=== PATIENT | male | born 1990 | race Caucasian/White ===

== ENCOUNTER 2019-07-04 08:09 | Inpatient (IN) | payer SELFPAY ==
[~2019-07-04] VITALS: Ht 170.2 cm; Wt 63.5 kg
[2019-07-04] MEDS ORDERED: InsuLIN REG 1unit/0.01ml Soln (100units/ml) ONE (09:22)
[2019-07-04] MEDS ORDERED: SODIUM CHLORIDE 0.9% 1,000 ML IV ONE ×2 (09:24)
[2019-07-04] MEDS ORDERED: InsuLIN REG 1unit/0.01ml Soln (100units/ml) IV ONE (09:30)
[2019-07-04] MEDS ORDERED: SODIUM CHLORIDE 0.9% 3,000 ML IV ONE (09:30)
[2019-07-04 09:35] LABS: Basophils # (auto) 0 uL; Eosinophils # (auto) 0 uL; Lymphocytes # (auto) 1.1 uL; Monocytes # (auto) 0.4 uL
[2019-07-04 09:37] LABS: Basophils % (auto) 0.2 % (0.0-2.0); Eosinophils % (auto) 0.3 % (0.0-7.0); Hematocrit 43.7 % (41.0-53.0); Hemoglobin 15.5 g/dL (13.5-17.5); Mean Corpuscular Hemoglobin 35.8 pg (28.0-32.0); Mean Corpuscular Hgb Conc. 35.4 g/dL (32.0-36.0); Mean Corpuscular Volume 101.1 fL (80.0-100.0); Monocytes % (auto) 4.1 % (0.0-12.0); Neutrophils # (auto) 8.6 uL; Neutrophils % (auto) 84.4 % (37.0-80.0); Nucleated Red Blood Cells % 0.1 %; Platelet Count (auto) 131 10^3/uL (140-450); Red Blood Cells 4.32 10^6/uL (4.5-5.90); Red Cell Distribution Width 13.2 % (11.8-14.3); White Blood Cell 10.2 10^3/uL (4.4-10.8)
[2019-07-04 10:06] LABS: Urine Bacteria NONE SEEN /hpf (None Seen); Urine Blood Negative /uL (Negative); Urine Mucus FEW (None Seen); Urine Specific Gravity 1.023 (1.001-1.035); Urine WBC 1 /hpf (0 - 3)
[2019-07-04 11:29] LABS: Potassium 4.7 mmol/L (3.5-5.1); Sodium 148 mmol/L (136-145)
[2019-07-04 11:30] LABS: Anion Gap 33.6 (5-15); Carbon Dioxide 14.4 mmol/L (21-32); Chloride 100 mmol/L (98-107)
[2019-07-04 11:32] LABS: BUN/Creatinine Ratio 11.1; Blood Urea Nitrogen 12 mg/dL (7-18); GFR African American 104 mL/min; GFR Non-African American 86 mL/min
[2019-07-04] MEDS ORDERED: InsuLIN R (HUMAN) 100 UNITS in SODIUM CHL 0.9% 99 ML IV SCH (11:32)
[2019-07-04 11:33] LABS: Alanine Aminotransferase 52 U/L (16-61); Alkaline Phosphatase 174 U/L (45-117); Aspartate Aminotransferase 170.4 U/L (15-37)
[2019-07-04 11:34] LABS: Bilirubin, Total 1.9 mg/dL (0.2-1.0)
[2019-07-04 11:35] LABS: Albumin 4.8 g/dL (3.4-5.0); Total Protein 7.9 g/dL (6.4-8.2)
[2019-07-04 11:38] LABS: Calcium 3.6 mg/dL (8.5-10.1); Glucose 950 mg/dL (74-106)
[2019-07-04] MEDS ORDERED: DEXTROSE (50%) 50ML SYRG IV PRN (11:45)
[2019-07-04] MEDS ORDERED: CALCIUM CHL 100MG/ML 2,000 MG in D5W 5% 100 ML IV ONE (11:45)
[2019-07-04] MEDS: ACCU-CHEK COMFORT CURVE STRIP VI SCH ×8 (11:58→22:12)
[2019-07-04] MEDS ORDERED: HYDROcodone-ACET 5/325MG TAB PO PRN (12:15)
[2019-07-04] MEDS ORDERED: NITROGLYCERIN 0.4 MG SL TAB SL PRN (12:15)
[2019-07-04] MEDS ORDERED: ACETAMINOPHEN 500 MG TAB PO PRN (12:15)
[2019-07-04] MEDS ORDERED: MORPHINE SULF INJ 2 MG/ML SYRINGE 1ML IV PRN ×2 (12:15)
[2019-07-04] MEDS ORDERED: ONDANSETRON HCL 4 MG/2 ML VIAL IV PRN (12:15)
[2019-07-04] MEDS: SODIUM CHLORIDE 0.9% 1,000 ML IV SCH ×2 (12:15→20:15)
[2019-07-04 14:34] LABS: Magnesium 1.8 mg/dL (1.6-2.6); Phosphorus 3.9 mg/dL (2.5-4.90)
[2019-07-04 14:41] LABS: BUN/Creatinine Ratio 14.3; Calcium 9.4 mg/dL (8.5-10.1); Potassium 3.8 mmol/L (3.5-5.1)
[2019-07-04] MEDS: InsuLIN R (HUMAN) 100 UNITS in SODIUM CHL 0.9% 99 ML IV SCH ×2 (17:06→18:07)
[2019-07-04 19:00] VITALS: BP 116/74
--- NOTE | 2019-07-04 19:15 | NUR ---
OPEN RECEIVED REPORT AND ASSUMED CARE OF MALE PT. PT IS CONNECTED TO THE ER MONITORS VS ARE STABLE. PT IS ON RA 97%. PT IS ON AN INSULIN DRIP AND NS. PT IS RELAXED LAYING ON ER GURNEY AND WATCHING TV, DENIES PAIN AT THIS TIME. PT IS A/0 X 4. PT HAS L AC IV AND R FA IV. BOTH IVS ARE PATENT AND ASYMPTOMATIC. PT CAN AMBULATE WITHOUT ASSISTANCE. WHEELS ARE LOCKED. SIDE RAILS UP FOR SAFETY. SAFETY MEASURES ARE IN PLACE. IS AT BEDSIDE. PT DENIES QUESTIONS AT THIS TIME. WILL CONTINUE TO CARE FOR AND MONITOR.
[2019-07-04 20:00] VITALS: BP 116/74
[2019-07-04] MEDS: FAMOTIDINE (10MG/ML) 2ML VL IV SCH (21:32)
[2019-07-04 21:35] VITALS: BP 120/70
[2019-07-04 22:00] VITALS: BP 112/75
[2019-07-04 23:22] LABS: Calcium 7.8 mg/dL (8.5-10.1); Potassium 3.1 mmol/L (3.5-5.1)
[2019-07-04 23:25] LABS: BUN/Creatinine Ratio 10.6
[2019-07-05] VITALS: BP 112/76
[2019-07-05 00:50] VITALS: BP 113/74
--- NOTE | 2019-07-05 00:53 | NUR ---
[facility]1 Addendum: 07/05/19 at 0053 by FAUSTINO RAWLS RN AWAITING CALL BACK
--- NOTE | 2019-07-05 01:04 | NUR ---
CONSULTED DR. DHILLON INFORMED DR DHILLON ABOUT THE K LEVEL ORDERS RECEIVED. JACKELINE AND DR. BENAVIDES.
[2019-07-05] MEDS ORDERED: POTASSIUM CHL 20MEQ/100ML 100 ML IV ONE (01:15)
--- NOTE | 2019-07-05 01:15 | NUR ---
PT COMPLAINS PT COMPLAINS OF IV FLUID BEING UNCOMFORTABLE. PT CURRENTLY RUNNING K. K STOPPED. CONSULT WITH JACQUIE TO GIVE PO INSTEAD.
--- NOTE | 2019-07-05 01:40 | NUR ---
PT APPEARS TO BE SLEEPING, VS STABLE. NO SS OF DISTRESS NOTED.
[2019-07-05] MEDS: ACCU-CHEK COMFORT CURVE STRIP VI SCH ×14 (01:43→20:00)
[2019-07-05] MEDS ORDERED: POTASSIUM CHL 20 Meq TABLET PO ONE (01:45)
[2019-07-05 02:00] VITALS: BP 116/67
[2019-07-05 04:00] VITALS: BP 115/69
[2019-07-05] MEDS: SODIUM CHLORIDE 0.9% 1,000 ML IV SCH ×3 (04:24→20:15)
[2019-07-05 06:13] VITALS: BP 106/62
[2019-07-05 07:26] LABS: Basophils # (auto) 0 uL; Eosinophils # (auto) 0.1 uL; Eosinophils % (auto) 1.1 % (0.0-7.0); Lymphocytes # (auto) 0.8 uL; Monocytes # (auto) 0.3 uL; Monocytes % (auto) 6.5 % (0.0-12.0); Platelet Count (auto) 104 10^3/uL (140-450); White Blood Cell 5.2 10^3/uL (4.4-10.8)
[2019-07-05 07:28] LABS: Basophils % (auto) 0.7 % (0.0-2.0); Hematocrit 36.8 % (41.0-53.0); Lymphocytes % (auto) 15.5 % (10.0-50.0); Mean Corpuscular Hemoglobin 34.9 pg (28.0-32.0); Mean Corpuscular Hgb Conc. 35.3 g/dL (32.0-36.0); Mean Corpuscular Volume 98.7 fL (80.0-100.0); Neutrophils % (auto) 76.2 % (37.0-80.0); Nucleated Red Blood Cells % 0.1 %; Red Blood Cells 3.73 10^6/uL (4.5-5.90); Red Cell Distribution Width 13.1 % (11.8-14.3)
[2019-07-05 07:36] LABS: Potassium 3.4 mmol/L (3.5-5.1)
[2019-07-05 07:42] LABS: BUN/Creatinine Ratio 8.2; Calcium 7.8 mg/dL (8.5-10.1); Phosphorus 2.6 mg/dL (2.5-4.90)
[2019-07-05] MEDS: FAMOTIDINE (10MG/ML) 2ML VL IV SCH ×2 (09:50→22:00)
[2019-07-05 11:33] LABS: Calcium 8.2 mg/dL (8.5-10.1); Potassium 3.5 mmol/L (3.5-5.1)
[2019-07-05 11:37] LABS: BUN/Creatinine Ratio 7.9; Bilirubin, Total 0.8 mg/dL (0.2-1.0); Total Protein 6.3 g/dL (6.4-8.2)
[2019-07-05 16:33] LABS: Calcium 7.7 mg/dL (8.5-10.1); Potassium 3.3 mmol/L (3.5-5.1)
[2019-07-05] MEDS ORDERED: DEXTROSE (50%) 50ML SYRG IV PRN (19:15)
[2019-07-05] MEDS ORDERED: INSULIN LANTUS (GLARGINE) 1 /0.01ml (100units/ml) SC ONE (19:15)
--- NOTE | 2019-07-05 19:15 | NUR ---
OPEN RECEIVED REPORT AND ASSUMED CARE OF MALE PT. PT IS CONNECTED TO THE ER MONITORS VS ARE STABLE. PT IS ON RA 98/%. PT IS ON AN INSULIN DRIP AND NS@125/hr. PT IS RELAXED LAYING ON ER GURNEY AND WATCHING TV, DENIES PAIN AT THIS TIME. PT IS A/0 X 4. PT HAS L AC IV AND R FA IV. BOTH IVS ARE PATENT, no resistance noted when flushed with ns. ivs appear ASYMPTOMATIC. PT CAN AMBULATE WITHOUT ASSISTANCE. WHEELS ARE LOCKED. SIDE RAILS UP FOR SAFETY. SAFETY MEASURES ARE IN PLACE. all questions and concerns addressed at this time. WILL CONTINUE TO CARE FOR AND MONITOR.
[2019-07-05] MEDS: InsuLIN REG 1unit/0.01ml Soln (100units/ml) SC SCH (20:00)
--- NOTE | 2019-07-05 21:30 | NUR ---
report given to sheryl campos report given to sheryl campos and care endorsed.
--- NOTE | 2019-07-05 21:30 | NUR ---
pt on insulin drip until transfer, pt not given sub q insulin.
[2019-07-05 21:50] VITALS: BP 124/75
--- NOTE | 2019-07-05 21:50 | NUR ---
MS admit from ER SANDOVALYAZMIN SCHULTZ admitted to tele/MS after SBAR received. Patient oriented to Shantell Schwartz, primary RN, unit, room, bed, and unit policies regarding patient care and visiting hours. Patient weighed by bed scale and encouraged to call if they need something. All questions and concerns addressed, patient verbalized understanding. PATIENT IS ALERT AND ORIENTED X4 AND ANSWERS IN COMPLETE SENTENCES. PATIENT IS COMFORTABLE IN BED. DISCUSSED POC WITH PATIENT AND INSTRUCTED PATIENT TO CALL PRN; PATIENT VERBALIZED UNDERSTANDING. PATIENT DENIES NAUSEA AND DIZZINESS. PATIENT DENIES PAIN. WILL CONTINUE TO MONITOR Q1H AND PRN.
--- NOTE | 2019-07-05 22:00 | NUR ---
MED REC PATIENT STATES THAT HE ONLY TAKES REGULAR INSULIN AND HAS TAKEN LANTUS IN THE PAST BUT DOES NOT KNOW THE SLIDING SCALE. HE STATES THAT HE HAS NOT TAKEN INSULIN OR LANTUS "FOR WEEKS" BECAUSE HIS INSURANCE TERMINATED.
--- NOTE | 2019-07-05 23:50 | NUR ---
AT BEDSIDE. [employer] NOTED. PATIENT AND FAMILY ARE AWARE THAT VISITING HOURS ARE FROM 2000 TO 0800. WAS ALLOWED TO COME UP AND STAY FOR 20 MINUTES.
[2019-07-06] MEDS: InsuLIN REG 1unit/0.01ml Soln (100units/ml) SC SCH ×3 (00:17→07:50)
[2019-07-06] MEDS: ACCU-CHEK COMFORT CURVE STRIP VI SCH ×3 (00:17→07:50)
[2019-07-06] MEDS: SODIUM CHLORIDE 0.9% 1,000 ML IV SCH (04:20)
[2019-07-06 05:00] VITALS: BP 115/68
[2019-07-06 06:48] LABS: Potassium 3.1 mmol/L (3.5-5.1)
[2019-07-06 07:05] LABS: BUN/Creatinine Ratio 9.1; Calcium 8.4 mg/dL (8.5-10.1); Magnesium 1.9 mg/dL (1.6-2.6)
--- NOTE | 2019-07-06 07:15 | NUR ---
ENDORSED PATIENT CARE TO DAY SHIFT NURSE MORENA LOPEZ.
[2019-07-06 07:16] LABS: Cholesterol 214 mg/dL (< 200); HDL Cholesterol 54 mg/dL (40-59); LDL Cholesterol 104 mg/dL (< 100); Triglycerides 393 mg/dL (< 150)
[2019-07-06 09:00] VITALS: BP 110/66
[2019-07-06] MEDS ORDERED: MAGNESIUM SULFATE 1GM/100ML 100 ML IV ONE (09:45)
[2019-07-06] MEDS ORDERED: POTASSIUM CHL 20 Meq TABLET PO ONE (09:45)
[2019-07-06] MEDS: FAMOTIDINE (10MG/ML) 2ML VL IV SCH (09:58)
[2019-07-06] MEDS ORDERED: SODIUM CHLORIDE 0.9% 1,000 ML IV SCH (10:00)
[2019-07-06] MEDS ORDERED: DEXTROSE (50%) 50ML SYRG IV PRN (10:00)
[2019-07-06] MEDS ORDERED: InsuLIN REG 1unit/0.01ml Soln (100units/ml) SC SCH (11:30)
[2019-07-06] MEDS ORDERED: ACCU-CHEK COMFORT CURVE STRIP VI SCH (11:30)
[2019-07-06] MEDS ORDERED: ATOR20TA PO (12:35)
[2019-07-06 13:00] VITALS: BP 115/76
[2019-07-06 13:15] LABS: BUN/Creatinine Ratio 8.3; Calcium 8.2 mg/dL (8.5-10.1); Potassium 3.9 mmol/L (3.5-5.1)
[2019-07-06] MEDS ORDERED: INSULIN LANTUS (GLARGINE) 1 /0.01ml (100units/ml) SC ONE (13:45)
--- NOTE | 2019-07-06 16:17 | NUR ---
PT DISCHARGED HOME. INSTRUCTIONS GIVEN, QUESTIONS ANSWERED. CHART FOR LOW DOSE SS INSULIN GIVEN. VERBALIZED UNDERSTANDING. ALL APPROPRIATE PAPERWORK SIGNED. PATIENT DISCHARGED HOME.
== END 2019-07-06 16:18 | disposition home or self-care (01) | DRG 638 ==
LOC: ER 08:09 → TELE 08:10 → WEST WING 07-05 21:41
PROVIDERS: ADMIT Nurse Practitioner Acute Care; ATTEND Internal Medicine
DX: E11.10 Type 2 diabetes mellitus with ketoacidosis without coma (principal); E44.1 Mild protein-calorie malnutrition; E78.5 Hyperlipidemia, unspecified; E83.51 Hypocalcemia; E86.0 Dehydration; E87.6 Hypokalemia; Z91.14 Patient's other noncompliance with medication regimen; Z68.21 Body mass index [BMI] 21.0-21.9, adult; Z79.4 Long term (current) use of insulin
CPT/HCPCS: 36415; 80048; 80053; 80061; 81001; 82962; 83036; 83735; 83880; 84100; 84443; 85025; 87081; 96361; 96365; 96367; 96375; G0378; J1815; J3480; J3490; J7060

== ENCOUNTER 2020-09-22 21:45 | Inpatient (IN) | payer MEDICAID, OTHER ==
[~2020-09-22] VITALS: Ht 200.7 cm; Wt 71.2 kg
[~2020-09-22 21:45] MED LIST: ATOR20TA PO
[2020-09-22] MEDS ORDERED: InsuLIN REG 1unit/0.01ml Soln (100units/ml) IV ONE (23:15)
[2020-09-22] MEDS ORDERED: MORPHINE SULFATE 4 MG/ML SYR/VIAL IV ONE (23:15)
[2020-09-22] MEDS ORDERED: ONDANSETRON HCL 4 MG/2 ML VIAL IV ONE (23:15)
[2020-09-22] MEDS ORDERED: SODIUM CHLORIDE 0.9% 3,000 ML IV ONE (23:15)
[2020-09-22 23:44] LABS: Platelet Count (auto) 193 10^3/uL (140-450)
[2020-09-22 23:46] LABS: Hematocrit 40.6 % (41.0-53.0); Hemoglobin 12.8 g/dL (13.5-17.5); Mean Corpuscular Hemoglobin 33.9 pg (28.0-32.0); Mean Corpuscular Hgb Conc. 31.5 g/dL (32.0-36.0); Mean Corpuscular Volume 107.8 fL (80.0-100.0); Red Blood Cells 3.76 10^6/uL (4.5-5.90); Red Cell Distribution Width 14.2 % (11.8-14.3); White Blood Cell 28.3 10^3/uL (4.4-10.8)
[2020-09-22 23:49] LABS: Basophils % (manual) 0 (0.0-2.0); Blast Cells 0; Eosinophils % (manual) 0 (0-7); Myelocytes % 0; Promyelocytes % 0; Reactive Lymphocytes 0
[2020-09-22 23:57] LABS: Albumin 2.8 g/dL (3.4-5.0); BUN/Creatinine Ratio 7.6; Calcium 6.9 mg/dL (8.5-10.1)
[2020-09-23] VITALS (63 sets, daily range): BP systolic 65–158; BP diastolic 18–97
[2020-09-23 00:06] LABS: Bilirubin, Total 2.6 mg/dL (0.2-1.0); Total Protein 6.3 g/dL (6.4-8.2)
[2020-09-23 00:19] LABS: Potassium 5.6 mmol/L (3.5-5.1)
[2020-09-23 00:38] LABS: Band Neutrophils % (manual) 11; Lymphocytes % (manual) 20 (10.0-50.0); Metamyelocytes % 1; Monocytes % (manual) 11 (0-12)
[2020-09-23] MEDS ORDERED: SODIUM CHLORIDE 0.9% 1,000 ML IV SCH ×2 (01:15→04:45)
[2020-09-23] MEDS ORDERED: DEXTROSE (50%) 50ML SYRG IV PRN ×2 (01:15→04:45)
[2020-09-23] MEDS ORDERED: SODIUM BICARBONATE 8.4 % INJ 50ML VIAL IV ONE ×3 (01:30→20:45)
[2020-09-23] MEDS ORDERED: InsuLIN REG 1unit/0.01ml Soln (100units/ml) IV ONE ×2 (01:30→20:00)
[2020-09-23] MEDS ORDERED: NITROGLYCERIN 0.4 MG SL TAB SL PRN (01:45)
[2020-09-23] MEDS ORDERED: MORPHINE SULF INJ 2 MG/ML SYRINGE 1ML IV PRN (01:45)
[2020-09-23] MEDS ORDERED: ONDANSETRON HCL 4 MG/2 ML VIAL IV PRN (01:45)
[2020-09-23] MEDS ORDERED: DOCUSATE SOD 100 MG CAP PO PRN (01:45)
[2020-09-23] MEDS ORDERED: ACETAMINOPHEN 325 MG TAB PO PRN (01:45)
[2020-09-23] MEDS ORDERED: HYDROcodone-ACET 5/325MG TAB PO PRN (01:45)
[2020-09-23 02:32] LABS: Lactic Acid w/Reflex 22.6 mmol/L (0.4-2.0)
[2020-09-23 03:18] LABS: Lactic Acid w/Reflex 26.4 mmol/L (0.4-2.0)
[2020-09-23] MEDS ORDERED: VANCOMYCIN PER PHARMACY 0 MG IV SCH (03:45)
[2020-09-23] MEDS ORDERED: VANCOMYCIN 1GM/250ML 250 ML IV ONE (04:00)
[2020-09-23] MEDS ORDERED: InsuLIN R (HUMAN) 100 UNITS in SODIUM CHL 0.9% 99 ML IV SCH ×3 (04:45→12:30)
[2020-09-23] MEDS ORDERED: INSULIN LANTUS (GLARGINE) 1 /0.01ml (100units/ml) SC ONE (05:00)
[2020-09-23] MEDS ORDERED: InsuLIN REG 1unit/0.01ml Soln (100units/ml) ONE (05:37)
[2020-09-23 05:39] LABS: Hematocrit 35.2 % (41.0-53.0); Hemoglobin 11.5 g/dL (13.5-17.5)
[2020-09-23 05:41] LABS: Mean Corpuscular Hgb Conc. 32.5 g/dL (32.0-36.0); Mean Corpuscular Volume 104.4 fL (80.0-100.0); Platelet Count (auto) 159 10^3/uL (140-450); Red Blood Cells 3.37 10^6/uL (4.5-5.90); Red Cell Distribution Width 13.8 % (11.8-14.3)
[2020-09-23 05:48] LABS: Chloride 92 mmol/L (98-107); Magnesium 2.3 mg/dL (1.6-2.6); Potassium 4.9 mmol/L (3.5-5.1); Sodium 135 mmol/L (136-145)
[2020-09-23 06:00] LABS: Anion Gap 39 (5-15); BUN/Creatinine Ratio 9.2; Blood Urea Nitrogen 14 mg/dL (7-18); Glucose 352 mg/dL (74-106)
[2020-09-23] MEDS ORDERED: InsuLIN REG 1unit/0.01ml Soln (100units/ml) SC SCH (06:00)
[2020-09-23] MEDS ORDERED: ACCU-CHEK COMFORT CURVE STRIP VI SCH (06:00)
[2020-09-23 06:01] LABS: Alanine Aminotransferase 2471 U/L (16-61); Albumin 2.4 g/dL (3.4-5.0); Alkaline Phosphatase 234 U/L (45-117); Aspartate Aminotransferase < 3 U/L (15-37); Cholesterol 254 mg/dL (< 200); GFR African American 69 mL/min; GFR Non-African American 57 mL/min; HDL Cholesterol 28 mg/dL (40-59); Phosphorus 8.8 mg/dL (2.5-4.90); Total Protein 5.2 g/dL (6.4-8.2); Triglycerides 1813 mg/dL (< 150)
[2020-09-23 06:02] LABS: Carbon Dioxide 4 mmol/L (21-32)
[2020-09-23 06:03] LABS: Calcium 5.9 mg/dL (8.5-10.1); Lactic Acid w/Reflex 24.8 mmol/L (0.4-2.0)
[2020-09-23] MEDS: ACCU-CHEK COMFORT CURVE STRIP VI SCH ×12 (06:13→22:30)
[2020-09-23 06:16] LABS: White Blood Cell 32.7 10^3/uL (4.4-10.8)
[2020-09-23 06:17] LABS: Basophils % (manual) 0 (0.0-2.0); Blast Cells 0; Eosinophils % (manual) 0 (0-7); Metamyelocytes % 0; Myelocytes % 0; Promyelocytes % 0; Reactive Lymphocytes 0
[2020-09-23] MEDS ORDERED: CALCIUM GLUC 4.65meq/50ml D5AE 50 ML IV ONE ×3 (06:45→17:00)
[2020-09-23 06:59] LABS: Band Neutrophils % (manual) 5; Lymphocytes % (manual) 7 (10.0-50.0); Monocytes % (manual) 5 (0-12)
[2020-09-23] MEDS: NOREPINEPHRINE 8 MG/250ML KIT 250 ML IV SCH ×3 (07:00→23:40)
[2020-09-23] MEDS: INSULIN LANTUS (GLARGINE) 1 /0.01ml (100units/ml) SC SCH ×2 (07:00→22:06)
[2020-09-23] MEDS ORDERED: LORazepam 2MG/ML-1ML VIAL ONE (07:36)
[2020-09-23] MEDS ORDERED: LORazepam 2MG/ML-1ML VIAL IV ONE (07:45)
[2020-09-23] MEDS ORDERED: MIDAZOLAM HCL 5 MG/ML-1ML VIAL ONE (07:45)
[2020-09-23] MEDS ORDERED: MIDAZOLAM DRIP 50 mg/50mL 50 ML IV ONE (07:50)
[2020-09-23] MEDS ORDERED: ETOMIDATE (2MG/ML) 20ML VIAL IV ONE (07:50)
[2020-09-23] MEDS ORDERED: SUCCINYLCHOLINE CHLORIDE 20 MG/ML 10ML VIAL IV ONE (07:50)
[2020-09-23] MEDS ORDERED: levETIRAcetam 500 MG/5ML INJ IV ONE (07:50)
[2020-09-23] MEDS: MIDAZOLAM DRIP 50 mg/50mL 50 ML IV SCH ×3 (08:28→23:29)
[2020-09-23] MEDS ORDERED: SODIUM CHLORIDE 0.9% 1,000 ML IV ONE (08:30)
[2020-09-23] MEDS ORDERED: MIDAZOLAM HCL 5 MG/ML-1ML VIAL IV ONE (08:30)
[2020-09-23] MEDS ORDERED: cefTRIAXone 1GM/50ML D5W 50 ML IV SCH (09:00)
[2020-09-23] MEDS: ALBUMIN 25% 50 ML IV SCH ×3 (09:40→23:26)
[2020-09-23] MEDS ORDERED: MULTIPLE VITAMIN TAB PO SCH (10:00)
[2020-09-23] MEDS ORDERED: FAMOTIDINE 20 MG TAB PO SCH (10:00)
[2020-09-23] MEDS ORDERED: ASCORBIC ACID 500 MG TAB PO SCH (10:00)
[2020-09-23] MEDS ORDERED: ZINC SULFATE 220mg CAP or TAB PO SCH (10:00)
[2020-09-23] MEDS ORDERED: fentaNYL Drip 2500mCg/250mlNS 250 ML IV ONE (10:48)
[2020-09-23] MEDS: SODIUM CHLORIDE 0.9% 1,000 ML IV SCH ×3 (11:01→21:49)
[2020-09-23 11:15] LABS: Hematocrit 31.1 % (41.0-53.0); Hemoglobin 10.6 g/dL (13.5-17.5); Mean Corpuscular Hgb Conc. 34.1 g/dL (32.0-36.0); Mean Corpuscular Volume 99.9 fL (80.0-100.0); Platelet Count (auto) 81 10^3/uL (140-450); Red Blood Cells 3.11 10^6/uL (4.5-5.90); Red Cell Distribution Width 14.4 % (11.8-14.3); White Blood Cell 25.7 10^3/uL (4.4-10.8)
[2020-09-23 11:25] LABS: Basophils % (manual) 0 (0.0-2.0); Blast Cells 0; Eosinophils % (manual) 0 (0-7); INR 1.84 (0.9-1.15); Monocytes % (manual) 0 (0-12); Promyelocytes % 0; Reactive Lymphocytes 0
[2020-09-23 11:32] LABS: BUN/Creatinine Ratio 7.7
[2020-09-23 11:38] LABS: Calcium 5.7 mg/dL (8.5-10.1); Potassium 6.4 mmol/L (3.5-5.1)
[2020-09-23] MEDS ORDERED: IPRATROPIUM BROM 0.5 MG/2.5ML INH SOL NEB STA (11:48)
[2020-09-23] MEDS ORDERED: SODIUM ZIRCONIUM CYCL 10 GM PAK PO ONE (12:00)
[2020-09-23 12:08] LABS: Band Neutrophils % (manual) 47; Lymphocytes % (manual) 8 (10.0-50.0); Metamyelocytes % 4; Myelocytes % 3
[2020-09-23] MEDS ORDERED: ALBUTEROL SULF 2.5 MG/0.5ML(0.5%) NEB SOLN NEB STA (12:15)
[2020-09-23] MEDS ORDERED: ALBUTEROL SULF 2.5 MG/0.5ML(0.5%) NEB SOLN ONE (12:18)
[2020-09-23] MEDS ORDERED: PANTOPRAZOLE 40 MG/10 ML VIAL INJ IV ONE (12:30)
[2020-09-23] MEDS: SODIUM BICARBONATE 50ML VIAL 50 ML in SOD CHL 0.45% 1,000 ML IV SCH ×3 (12:30→20:00)
[2020-09-23] MEDS ORDERED: PIPERACILLIN-TAZOB 2.25GM 50 ML IV ONE (12:30)
[2020-09-23] MEDS ORDERED: PIPERACILLIN-TAZOB 2.25GM 50 ML IV SCH (12:44)
[2020-09-23] MEDS: VASOPRESSIN 50 UNITS in D5W 5% 247.5 ML IV SCH (12:45)
[2020-09-23] MEDS: InsuLIN R (HUMAN) 100 UNITS in SODIUM CHL 0.9% 99 ML IV SCH ×4 (13:00→23:28)
[2020-09-23] MEDS: PIPERACILLIN-TAZOB 3.375GM 100 ML IV SCH ×2 (13:00→19:00)
[2020-09-23 14:23] LABS: BUN/Creatinine Ratio 8.2; Phosphorus 6.3 mg/dL (2.5-4.90)
[2020-09-23 14:31] LABS: Potassium 5.7 mmol/L (3.5-5.1)
[2020-09-23 14:32] LABS: Calcium 5.4 mg/dL (8.5-10.1)
[2020-09-23] MEDS ORDERED: LIDOCAINE 1% (LOCAL ANESTH.) PF 5ml SDV ID ONE (15:30)
[2020-09-23] MEDS: VANCOMYCIN 1GM/250ML 250 ML IV SCH (16:30)
[2020-09-23 17:14] LABS: Potassium 4.9 mmol/L (3.5-5.1)
[2020-09-23 17:18] LABS: BUN/Creatinine Ratio 7.8
[2020-09-23] MEDS: fentaNYL Drip 2500mCg/250mlNS 250 ML IV SCH (17:45)
[2020-09-23 17:50] LABS: Calcium 15.4 mg/dL (8.5-10.1)
[2020-09-23 19:14] LABS: BUN/Creatinine Ratio 7.9
[2020-09-23 19:22] LABS: Calcium 5.1 mg/dL (8.5-10.1)
[2020-09-23] MEDS: PANTOPRAZOLE 40 MG/10 ML VIAL INJ IV SCH (22:05)
[2020-09-23] MEDS: SODIUM CHLOR 0.9% PF (SALINE LOCK) 10ML VIAL/SYR IV SCH (22:05)
[2020-09-23 22:22] LABS: BUN/Creatinine Ratio 7.2; Potassium 4.8 mmol/L (3.5-5.1)
[2020-09-23 22:41] LABS: Calcium 5.1 mg/dL (8.5-10.1)
[2020-09-23] MEDS ORDERED: FUROSEMIDE 20 MG/2 ML VIAL IV ONE (22:45)
[2020-09-24] VITALS (100 sets, daily range): BP systolic -4–186; BP diastolic 38–179
[2020-09-24] MEDS: ACCU-CHEK COMFORT CURVE STRIP VI SCH ×16 (00:22→22:30)
[2020-09-24] MEDS: SODIUM BICARBONATE 50ML VIAL 50 ML in SOD CHL 0.45% 1,000 ML IV SCH ×5 (00:37→22:15)
[2020-09-24] MEDS: PIPERACILLIN-TAZOB 3.375GM 100 ML IV SCH ×2 (00:46→06:31)
[2020-09-24] MEDS: VASOPRESSIN 50 UNITS in D5W 5% 247.5 ML IV SCH (02:24)
[2020-09-24 02:41] LABS: Anion Gap 20 (5-15); BUN/Creatinine Ratio 7.3; Blood Urea Nitrogen 22 mg/dL (7-18); Carbon Dioxide 16 mmol/L (21-32); Chloride 92 mmol/L (98-107); GFR African American 32 mL/min; GFR Non-African American 26 mL/min; Potassium 4.4 mmol/L (3.5-5.1); Sodium 128 mmol/L (136-145)
[2020-09-24 02:47] LABS: Calcium < 5.0 mg/dL (8.5-10.1); Glucose 475 mg/dL (74-106)
[2020-09-24] MEDS: MIDAZOLAM DRIP 50 mg/50mL 50 ML IV SCH ×2 (03:08→06:36)
[2020-09-24] MEDS: InsuLIN R (HUMAN) 100 UNITS in SODIUM CHL 0.9% 99 ML IV SCH ×3 (03:08→23:25)
[2020-09-24 04:02] LABS: Eosinophils # (auto) 0 10 ^3/uL (0-0.8); Hemoglobin 10.6 g/dL (13.5-17.5); Lymphocytes # (auto) 0.3 10 ^3/uL (0.4-5.4); Monocytes # (auto) 0.1 10 ^3/uL (0-1.3); Red Cell Distribution Width 14.9 % (11.8-14.3); White Blood Cell 12.8 10^3/uL (4.4-10.8)
[2020-09-24 04:04] LABS: Basophils # (auto) 0.1 10 ^3/uL (0-0.2); Basophils % (auto) 0.5 % (0.0-2.0); Hematocrit 29.4 % (41.0-53.0); Lymphocytes % (auto) 2.4 % (10.0-50.0); Mean Corpuscular Hemoglobin 34.5 pg (28.0-32.0); Mean Corpuscular Hgb Conc. 36.1 g/dL (32.0-36.0); Mean Corpuscular Volume 95.6 fL (80.0-100.0); Monocytes % (auto) 0.9 % (0.0-12.0); Neutrophils # (auto) 12.3 10 ^3/uL (1.6-8.6); Neutrophils % (auto) 96.2 % (37.0-80.0); Nucleated Red Blood Cells % 0.3 %; Red Blood Cells 3.08 10^6/uL (4.5-5.90)
[2020-09-24] MEDS: VANCOMYCIN 1GM/250ML 250 ML IV SCH (04:17)
[2020-09-24 04:19] LABS: Albumin 2.2 g/dL (3.4-5.0); Anion Gap 20 (5-15); BUN/Creatinine Ratio 6.8; Blood Urea Nitrogen 21 mg/dL (7-18); Carbon Dioxide 16 mmol/L (21-32); Chloride 92 mmol/L (98-107); GFR African American 31 mL/min; GFR Non-African American 25 mL/min; Potassium 4.2 mmol/L (3.5-5.1); Sodium 128 mmol/L (136-145)
[2020-09-24] MEDS: SODIUM CHLORIDE 0.9% 1,000 ML IV SCH (04:22)
[2020-09-24 04:28] LABS: Alkaline Phosphatase 107 U/L (45-117); Bilirubin, Total 5.8 mg/dL (0.2-1.0); Total Protein 4.4 g/dL (6.4-8.2)
[2020-09-24 05:23] LABS: Magnesium 1.4 mg/dL (1.6-2.6)
[2020-09-24 05:44] LABS: Alanine Aminotransferase 2559 U/L (16-61); Aspartate Aminotransferase 14979 U/L (15-37); Calcium < 5.0 mg/dL (8.5-10.1); Glucose 411 mg/dL (74-106)
[2020-09-24] MEDS: NOREPINEPHRINE 8 MG/250ML KIT 250 ML IV SCH (06:11)
[2020-09-24 06:13] LABS: Platelet Count (auto) 39 10^3/uL (140-450)
[2020-09-24] MEDS: INSULIN LANTUS (GLARGINE) 1 /0.01ml (100units/ml) SC SCH ×2 (06:32→22:00)
[2020-09-24 08:31] LABS: Urine Bacteria NONE SEEN /hpf (None Seen); Urine Blood 3+ /uL (Negative); Urine Specific Gravity 1.011 (1.001-1.035); Urine WBC 3 /hpf (0 - 3)
[2020-09-24] MEDS: fentaNYL Drip 2500mCg/250mlNS 250 ML IV SCH (08:34)
[2020-09-24 08:48] LABS: Amphetamine Screen, Urine NEGATIVE (NEGATIVE); Barbiturate Scree,Urine NEGATIVE (NEGATIVE); Benzodiazephine Screen, Urine POSITIVE (NEGATIVE); Cannabinoid Screen, Urine NEGATIVE (NEGATIVE); Cocaine Screen, Urine NEGATIVE (NEGATIVE); Opiate Scree,Urine NEGATIVE (NEGATIVE); Phencyclidine Screen, Urine NEGATIVE (NEGATIVE)
[2020-09-24] MEDS ORDERED: PANTOPRAZOLE 40 MG/10 ML VIAL INJ IV SCH (10:00)
[2020-09-24] MEDS: PANTOPRAZOLE 40 MG/10 ML VIAL INJ IV SCH ×2 (10:07→22:00)
[2020-09-24] MEDS: SODIUM CHLOR 0.9% PF (SALINE LOCK) 10ML VIAL/SYR IV SCH ×2 (10:07→22:00)
[2020-09-24 12:48] LABS: Chloride 86 mmol/L (98-107); Sodium 124 mmol/L (136-145)
[2020-09-24 13:09] LABS: Anion Gap 17 (5-15); BUN/Creatinine Ratio 7.2; Blood Urea Nitrogen 17 mg/dL (7-18); Carbon Dioxide 21 mmol/L (21-32); GFR African American 42 mL/min; GFR Non-African American 35 mL/min; Glucose 356 mg/dL (74-106)
[2020-09-24 13:23] LABS: Sodium Urine 59 mmol/L (40-220)
[2020-09-24 13:25] LABS: Creatinine, Urine 28 mg/dL (30.0-125.0)
[2020-09-24] MEDS ORDERED: BUMETANIDE 2.5mg/10ml (0.25 mg/ml) INJ IV ONE (14:15)
[2020-09-24 14:46] LABS: Calcium < 5.0 mg/dL (8.5-10.1); Potassium 2.7 mmol/L (3.5-5.1)
[2020-09-24] MEDS ORDERED: CALCIUM GLUC 4.65meq/50ml D5AE 50 ML IV ONE ×2 (15:00)
[2020-09-24] MEDS: POTASSIUM CHL 20MEQ/100ML 100 ML IV SCH ×2 (15:25→16:20)
[2020-09-24] MEDS: CALCIUM GLUC 4.65meq/50ml D5AE 50 ML IV SCH ×2 (15:26→16:20)
[2020-09-24 17:49] LABS: Basophils # (auto) 0 10 ^3/uL (0-0.2); Eosinophils # (auto) 0.1 10 ^3/uL (0-0.8); Eosinophils % (auto) 0.6 % (0.0-7.0); Hemoglobin 10.6 g/dL (13.5-17.5); Nucleated Red Blood Cells % 0.2 %; Platelet Count (auto) 26 10^3/uL (140-450); Red Blood Cells 3.12 10^6/uL (4.5-5.90)
[2020-09-24 17:50] LABS: Anion Gap 14 (5-15); Blood Urea Nitrogen 23 mg/dL (7-18); Carbon Dioxide 21 mmol/L (21-32); Chloride 92 mmol/L (98-107); Glucose 174 mg/dL (74-106); Potassium 4.4 mmol/L (3.5-5.1); Sodium 127 mmol/L (136-145)
[2020-09-24 17:51] LABS: Basophils % (auto) 0.2 % (0.0-2.0); Hematocrit 29.5 % (41.0-53.0); Lymphocytes # (auto) 0.5 10 ^3/uL (0.4-5.4); Lymphocytes % (auto) 4.7 % (10.0-50.0); Mean Corpuscular Hemoglobin 34.2 pg (28.0-32.0); Mean Corpuscular Hgb Conc. 36.1 g/dL (32.0-36.0); Mean Corpuscular Volume 94.7 fL (80.0-100.0); Monocytes # (auto) 0.1 10 ^3/uL (0-1.3); Monocytes % (auto) 1.1 % (0.0-12.0); Neutrophils # (auto) 10.9 10 ^3/uL (1.6-8.6); Neutrophils % (auto) 93.4 % (37.0-80.0); Red Cell Distribution Width 15.4 % (11.8-14.3); White Blood Cell 11.6 10^3/uL (4.4-10.8)
[2020-09-24] MEDS: PIPERACILLIN-TAZOB 2.25GM 50 ML IV SCH (18:00)
[2020-09-24 18:07] LABS: Alanine Aminotransferase 1981 U/L (16-61); Alkaline Phosphatase 98 U/L (45-117); Aspartate Aminotransferase 9645 U/L (15-37); BUN/Creatinine Ratio 6.2; Bilirubin, Total 5.7 mg/dL (0.2-1.0); GFR African American 25 mL/min; GFR Non-African American 20 mL/min; Total Protein 4.1 g/dL (6.4-8.2)
[2020-09-24 18:11] LABS: Calcium < 5.0 mg/dL (8.5-10.1)
[2020-09-24] MEDS ORDERED: D5W 5% IV ONE (19:00)
[2020-09-24] MEDS ORDERED: CALCIUM GLUC IV ONE (19:00)
[2020-09-24] MEDS ORDERED: SODIUM BICARBONATE 8.4% INJ 50ML SYRINGE ONE (21:00)
[2020-09-24 23:47] LABS: Anion Gap 18 (5-15); BUN/Creatinine Ratio 5.8; Blood Urea Nitrogen 23 mg/dL (7-18); Carbon Dioxide 18 mmol/L (21-32); Chloride 91 mmol/L (98-107); GFR African American 23 mL/min; GFR Non-African American 19 mL/min; Glucose 174 mg/dL (74-106); Potassium 3.8 mmol/L (3.5-5.1); Sodium 127 mmol/L (136-145)
[2020-09-24 23:50] LABS: Calcium < 5.0 mg/dL (8.5-10.1)
[2020-09-25] VITALS (96 sets, daily range): BP systolic 92–299; BP diastolic 45–281
[2020-09-25] MEDS: PIPERACILLIN-TAZOB 2.25GM 50 ML IV SCH ×2 (00:17→06:27)
[2020-09-25] MEDS: ACCU-CHEK COMFORT CURVE STRIP VI SCH ×11 (00:30→20:20)
[2020-09-25 01:25] LABS: Basophils # (auto) 0 10 ^3/uL (0-0.2); Basophils % (auto) 0.2 % (0.0-2.0); Eosinophils # (auto) 0.1 10 ^3/uL (0-0.8); Eosinophils % (auto) 0.7 % (0.0-7.0); Hematocrit 27.5 % (41.0-53.0); Lymphocytes # (auto) 0.5 10 ^3/uL (0.4-5.4); Lymphocytes % (auto) 4.6 % (10.0-50.0); Mean Corpuscular Hemoglobin 34.5 pg (28.0-32.0); Mean Corpuscular Hgb Conc. 36.1 g/dL (32.0-36.0); Mean Corpuscular Volume 95.3 fL (80.0-100.0); Monocytes # (auto) 0.2 10 ^3/uL (0-1.3); Monocytes % (auto) 1.6 % (0.0-12.0); Neutrophils # (auto) 9.8 10 ^3/uL (1.6-8.6); Neutrophils % (auto) 92.9 % (37.0-80.0); Nucleated Red Blood Cells % 0.3 %; Platelet Count (auto) 22 10^3/uL (140-450); Red Blood Cells 2.89 10^6/uL (4.5-5.90); Red Cell Distribution Width 15.1 % (11.8-14.3); White Blood Cell 10.5 10^3/uL (4.4-10.8)
[2020-09-25] MEDS: SODIUM BICARBONATE 50ML VIAL 50 ML in SOD CHL 0.45% 1,000 ML IV SCH ×2 (03:38→09:51)
[2020-09-25 04:31] LABS: INR 1.58 (0.9-1.15)
[2020-09-25 05:26] LABS: Basophils # (auto) 0 10 ^3/uL (0-0.2); Eosinophils # (auto) 0.1 10 ^3/uL (0-0.8); Lymphocytes # (auto) 0.5 10 ^3/uL (0.4-5.4); Mean Corpuscular Volume 96.3 fL (80.0-100.0); Monocytes # (auto) 0.2 10 ^3/uL (0-1.3); Monocytes % (auto) 2.2 % (0.0-12.0); Neutrophils # (auto) 8.4 10 ^3/uL (1.6-8.6); White Blood Cell 9.2 10^3/uL (4.4-10.8)
[2020-09-25 05:29] LABS: Basophils % (auto) 0.5 % (0.0-2.0); Eosinophils % (auto) 1.4 % (0.0-7.0); Hematocrit 25.1 % (41.0-53.0); Lymphocytes % (auto) 5.1 % (10.0-50.0); Mean Corpuscular Hemoglobin 34.6 pg (28.0-32.0); Mean Corpuscular Hgb Conc. 35.9 g/dL (32.0-36.0); Neutrophils % (auto) 90.8 % (37.0-80.0); Nucleated Red Blood Cells % 0.3 %
[2020-09-25 05:35] LABS: Albumin 1.6 g/dL (3.4-5.0); Anion Gap 15 (5-15); Blood Urea Nitrogen 25 mg/dL (7-18); Carbon Dioxide 19 mmol/L (21-32); Chloride 92 mmol/L (98-107); Glucose 191 mg/dL (74-106); Potassium 3.8 mmol/L (3.5-5.1); Sodium 126 mmol/L (136-145)
[2020-09-25 05:52] LABS: Alanine Aminotransferase 1370 U/L (16-61); Alkaline Phosphatase 84 U/L (45-117); Aspartate Aminotransferase 4732 U/L (15-37); BUN/Creatinine Ratio 6.1; Bilirubin, Total 4.2 mg/dL (0.2-1.0); GFR African American 22 mL/min; GFR Non-African American 18 mL/min; Total Protein 3.5 g/dL (6.4-8.2)
[2020-09-25] MEDS ORDERED: SODIUM BICARBONATE 8.4% INJ 50ML SYRINGE ONE (05:55)
[2020-09-25 05:57] LABS: Calcium < 5.0 mg/dL (8.5-10.1)
[2020-09-25 05:58] LABS: Platelet Count (auto) 18 10^3/uL (140-450)
[2020-09-25] MEDS: INSULIN LANTUS (GLARGINE) 1 /0.01ml (100units/ml) SC SCH ×2 (06:24→22:22)
[2020-09-25] MEDS: NOREPINEPHRINE 8 MG/250ML KIT 250 ML IV SCH ×2 (06:45→16:14)
[2020-09-25] MEDS: MIDAZOLAM DRIP 50 mg/50mL 50 ML IV SCH ×3 (07:56→18:05)
[2020-09-25] MEDS ORDERED: LORazepam 2MG/ML-1ML VIAL IV PRN (10:00)
[2020-09-25] MEDS ORDERED: MAGNESIUM SULFATE 1GM/100ML 100 ML IV SCH ×2 (10:00→11:15)
[2020-09-25] MEDS: SODIUM CHLOR 0.9% PF (SALINE LOCK) 10ML VIAL/SYR IV SCH ×2 (10:12→22:22)
[2020-09-25 10:14] LABS: Hepatitis B Surface Antibody Positive
[2020-09-25 10:42] LABS: Hepatitis A Total Antibody Positive
[2020-09-25 10:45] LABS: Potassium 3.7 mmol/L (3.5-5.1)
[2020-09-25 10:47] LABS: BUN/Creatinine Ratio 6.1
[2020-09-25] MEDS ORDERED: CALCIUM GLUC 4.65meq/50ml D5AE 50 ML IV ONE ×3 (11:00→21:45)
[2020-09-25 11:01] LABS: Calcium 5.3 mg/dL (8.5-10.1)
[2020-09-25] MEDS: PANTOPRAZOLE 40 MG/10 ML VIAL INJ IV SCH ×2 (11:20→22:22)
[2020-09-25] MEDS ORDERED: DEXTROSE (50%) 50ML SYRG IV PRN (12:15)
[2020-09-25] MEDS: VASOPRESSIN 50 UNITS in D5W 5% 247.5 ML IV SCH (12:45)
[2020-09-25 12:53] LABS: Hepatitis A Ab IgM Negative; Hepatitis B Core IgM Negative; Hepatitis B Core Total AB Negative; Hepatitis B Surface Antigen Negative (Negative); Hepatitis C Antibody Negative (Negative)
[2020-09-25] MEDS: SODIUM CHLORIDE 0.9% 1,000 ML IV SCH ×2 (13:38→22:00)
[2020-09-25 14:06] LABS: Potassium 3.6 mmol/L (3.5-5.1)
[2020-09-25 14:08] LABS: BUN/Creatinine Ratio 5.8; Calcium 5.7 mg/dL (8.5-10.1)
[2020-09-25] MEDS: CEFEPIME 1 GM in SODIUM CHL 0.9% 50 ML IV SCH (16:12)
[2020-09-25] MEDS: InsuLIN REG 1unit/0.01ml Soln (100units/ml) SC SCH ×2 (16:13→20:51)
[2020-09-25] MEDS: fentaNYL Drip 2500mCg/250mlNS 250 ML IV SCH (18:03)
[2020-09-25 19:29] LABS: Potassium 3.8 mmol/L (3.5-5.1)
[2020-09-25 19:33] LABS: BUN/Creatinine Ratio 5.4
[2020-09-25 19:53] LABS: Calcium 5.5 mg/dL (8.5-10.1)
[2020-09-25 20:33] LABS: Albumin 1.5 g/dL (3.4-5.0); Magnesium 1.7 mg/dL (1.6-2.6)
[2020-09-25] MEDS: MAGNESIUM SULFATE 1GM/100ML 100 ML IV SCH ×2 (22:22→23:20)
[2020-09-26] VITALS (82 sets, daily range): BP systolic 95–176; BP diastolic 56–92
[2020-09-26] MEDS: metroNIDAZOLE 500MG/100ML 100 ML IV SCH ×4 (00:30→22:00)
[2020-09-26] MEDS: ACCU-CHEK COMFORT CURVE STRIP VI SCH ×6 (00:35→22:24)
[2020-09-26] MEDS: InsuLIN REG 1unit/0.01ml Soln (100units/ml) SC SCH ×6 (00:42→22:24)
[2020-09-26] MEDS: CEFEPIME 1 GM in SODIUM CHL 0.9% 50 ML IV SCH ×2 (02:00→16:00)
[2020-09-26 02:20] LABS: Basophils # (auto) 0 10 ^3/uL (0-0.2); Basophils % (auto) 0.3 % (0.0-2.0); Eosinophils # (auto) 0.2 10 ^3/uL (0-0.8); Eosinophils % (auto) 2.8 % (0.0-7.0); Hematocrit 18.9 % (41.0-53.0); Lymphocytes # (auto) 0.2 10 ^3/uL (0.4-5.4); Lymphocytes % (auto) 2.9 % (10.0-50.0); Mean Corpuscular Hgb Conc. 36.1 g/dL (32.0-36.0); Mean Corpuscular Volume 94.3 fL (80.0-100.0); Monocytes # (auto) 0.4 10 ^3/uL (0-1.3); Monocytes % (auto) 5.4 % (0.0-12.0); Neutrophils # (auto) 6.7 10 ^3/uL (1.6-8.6); Neutrophils % (auto) 88.6 % (37.0-80.0); Nucleated Red Blood Cells % 0.1 %; Platelet Count (auto) 29 10^3/uL (140-450); Red Blood Cells 2.01 10^6/uL (4.5-5.90); Red Cell Distribution Width 14.6 % (11.8-14.3); White Blood Cell 7.6 10^3/uL (4.4-10.8)
[2020-09-26 02:36] LABS: Albumin 1.4 g/dL (3.4-5.0); Magnesium 1.9 mg/dL (1.6-2.6); Potassium 3.7 mmol/L (3.5-5.1)
[2020-09-26 02:38] LABS: BUN/Creatinine Ratio 5.5; Calcium 5.5 mg/dL (8.5-10.1); Hemoglobin 6.8 g/dL (13.5-17.5)
[2020-09-26 02:46] LABS: Bilirubin, Total 4.7 mg/dL (0.2-1.0); Phosphorus 3.9 mg/dL (2.5-4.90); Total Protein 3.6 g/dL (6.4-8.2)
[2020-09-26 02:59] LABS: Cholesterol 120 mg/dL (< 200); Triglycerides 459 mg/dL (< 150)
[2020-09-26 03:00] LABS: HDL Cholesterol 10 mg/dL (40-59); LDL Cholesterol 33 mg/dL (< 100)
[2020-09-26] MEDS: SODIUM CHLORIDE 0.9% 1,000 ML IV SCH (04:15)
[2020-09-26 05:33] LABS: INR 1.17 (0.9-1.15)
[2020-09-26] MEDS ORDERED: CALCIUM GLUC 4.65meq/50ml D5AE 50 ML IV ONE (06:30)
[2020-09-26] MEDS: INSULIN LANTUS (GLARGINE) 1 /0.01ml (100units/ml) SC SCH ×2 (07:00→22:00)
[2020-09-26] MEDS: MAGNESIUM SULFATE 1GM/100ML 200 ML IV SCH (10:26)
[2020-09-26] MEDS: PANTOPRAZOLE 40 MG/10 ML VIAL INJ IV SCH ×2 (10:26→22:00)
[2020-09-26] MEDS: SODIUM CHLOR 0.9% PF (SALINE LOCK) 10ML VIAL/SYR IV SCH ×2 (10:27→22:00)
[2020-09-26] MEDS: BUMETANIDE INJECTION 25 MG in GIVE UN-DILUTED 0 ML IV SCH (11:00)
[2020-09-26] MEDS ORDERED: DOPamine 1600MCG/ML D5W 250 ML IV SCH (11:00)
[2020-09-26] MEDS ORDERED: BUMETANIDE 2.5mg/10ml (0.25 mg/ml) INJ IV ONE (11:00)
[2020-09-26] MEDS: DOPamine 1600MCG/ML D5W 250 ML IV SCH (11:40)
[2020-09-26] MEDS: MIDAZOLAM DRIP 50 mg/50mL 50 ML IV SCH ×2 (12:13→17:01)
[2020-09-26] MEDS: ALBUMIN 25% 100 ML IV SCH ×2 (12:40→22:00)
[2020-09-26] MEDS ORDERED: Glucerna 1.2 Cal 1Liter BOTTLE GT SCH (13:45)
[2020-09-26] MEDS ORDERED: FLUCONAZOLE 200MG/100ML 100 ML IV ONE (13:45)
[2020-09-26] MEDS: VASOPRESSIN 50 UNITS in D5W 5% 247.5 ML IV SCH (14:49)
[2020-09-26] MEDS: OCTREOTIDE ACETATE 100 MCG/ML VL SUBCUT SCH ×2 (14:51→22:00)
[2020-09-26] MEDS: NOREPINEPHRINE 8 MG/250ML KIT 250 ML IV SCH (17:00)
[2020-09-26] MEDS: fentaNYL Drip 2500mCg/250mlNS 250 ML IV SCH (17:05)
[2020-09-26] MEDS: DEXTROSE 10% 1,000 ML IV SCH (22:30)
[2020-09-26 22:59] LABS: BUN/Creatinine Ratio 5.6; Magnesium 2.1 mg/dL (1.6-2.6); Potassium 3.7 mmol/L (3.5-5.1)
[2020-09-26 23:01] LABS: Calcium 5.6 mg/dL (8.5-10.1)
[2020-09-27] VITALS (98 sets, daily range): BP systolic 104–164; BP diastolic 59–98
[2020-09-27] MEDS: InsuLIN REG 1unit/0.01ml Soln (100units/ml) SC SCH ×6 (00:30→22:15)
[2020-09-27] MEDS: ACCU-CHEK COMFORT CURVE STRIP VI SCH ×6 (00:30→22:15)
[2020-09-27] MEDS ORDERED: CALCIUM GLUC 4.65meq/50ml D5AE 50 ML IV ONE (01:00)
[2020-09-27] MEDS: ALBUMIN 25% 100 ML IV SCH (03:15)
[2020-09-27] MEDS: metroNIDAZOLE 500MG/100ML 100 ML IV SCH ×3 (06:00→22:15)
[2020-09-27] MEDS: OCTREOTIDE ACETATE 100 MCG/ML VL SUBCUT SCH ×3 (06:00→22:15)
[2020-09-27] MEDS: INSULIN LANTUS (GLARGINE) 1 /0.01ml (100units/ml) SC SCH ×2 (07:00→22:15)
[2020-09-27 07:31] LABS: Potassium 3.7 mmol/L (3.5-5.1)
[2020-09-27 07:32] LABS: Mean Corpuscular Hemoglobin 34.6 pg (28.0-32.0); Mean Corpuscular Hgb Conc. 35.8 g/dL (32.0-36.0); Mean Corpuscular Volume 96.6 fL (80.0-100.0); Red Blood Cells 1.97 10^6/uL (4.5-5.90); Red Cell Distribution Width 14.4 % (11.8-14.3); White Blood Cell 4.5 10^3/uL (4.4-10.8)
[2020-09-27 07:36] LABS: Hemoglobin 6.8 g/dL (13.5-17.5)
[2020-09-27 07:37] LABS: Platelet Count (auto) 16 10^3/uL (140-450)
[2020-09-27 07:39] LABS: Basophils % (manual) 0 (0.0-2.0); Blast Cells 0; Myelocytes % 0; Promyelocytes % 0; Reactive Lymphocytes 0
[2020-09-27 07:45] LABS: Albumin 1.9 g/dL (3.4-5.0); BUN/Creatinine Ratio 5.5; Bilirubin, Total 4.5 mg/dL (0.2-1.0); Calcium 6.2 mg/dL (8.5-10.1); Total Protein 4.2 g/dL (6.4-8.2)
[2020-09-27] MEDS: DEXTROSE 10% 1,000 ML IV SCH ×2 (08:03→14:29)
[2020-09-27] MEDS: MIDAZOLAM DRIP 50 mg/50mL 50 ML IV SCH ×3 (08:04→18:48)
[2020-09-27 08:28] LABS: Band Neutrophils % (manual) 2; Eosinophils % (manual) 3 (0-7); Lymphocytes % (manual) 4 (10.0-50.0); Metamyelocytes % 1; Monocytes % (manual) 19 (0-12)
[2020-09-27] MEDS ORDERED: SODIUM CHL 0.9% 1000 ML BAG XX ONE (10:00)
[2020-09-27] MEDS: MAGNESIUM SULFATE 1GM/100ML 200 ML IV SCH (10:17)
[2020-09-27] MEDS: PANTOPRAZOLE 40 MG/10 ML VIAL INJ IV SCH ×2 (10:18→22:15)
[2020-09-27] MEDS: FLUCONAZOLE 200MG/100ML 100 ML IV SCH (10:18)
[2020-09-27] MEDS: SODIUM CHLOR 0.9% PF (SALINE LOCK) 10ML VIAL/SYR IV SCH ×2 (10:33→22:15)
[2020-09-27] MEDS: DOPamine 1600MCG/ML D5W 250 ML IV SCH (11:15)
[2020-09-27] MEDS: BUMETANIDE INJECTION 25 MG in GIVE UN-DILUTED 0 ML IV SCH (11:39)
[2020-09-27] MEDS: VASOPRESSIN 50 UNITS in D5W 5% 247.5 ML IV SCH (12:45)
[2020-09-27] MEDS ORDERED: HEPARIN 1,000 UNITS/ml 1ML VIAL IV ONE (13:00)
[2020-09-27] MEDS: methylPREDNISolone SOD SUCC 40 MG/ML VL IV SCH ×2 (14:28→22:15)
[2020-09-27] MEDS: CEFEPIME 1 GM in SODIUM CHL 0.9% 50 ML IV SCH (14:28)
[2020-09-27] MEDS: fentaNYL Drip 2500mCg/250mlNS 250 ML IV SCH (15:37)
[2020-09-27] MEDS ORDERED: EPOETIN ALFA-EPBX 10,000 UNIT/1ML VIAL SC ONE (21:00)
[2020-09-28] VITALS (97 sets, daily range): BP systolic 94–139; BP diastolic 51–89
[2020-09-28] MEDS: ACCU-CHEK COMFORT CURVE STRIP VI SCH ×6 (00:30→20:00)
[2020-09-28] MEDS: InsuLIN REG 1unit/0.01ml Soln (100units/ml) SC SCH ×6 (00:30→20:00)
[2020-09-28 04:42] LABS: Basophils # (auto) 0 10 ^3/uL (0-0.2); Basophils % (auto) 0.2 % (0.0-2.0); Eosinophils # (auto) 0 10 ^3/uL (0-0.8); Eosinophils % (auto) 0.1 % (0.0-7.0); Hematocrit 26.7 % (41.0-53.0); Hemoglobin 9.5 g/dL (13.5-17.5); Lymphocytes # (auto) 0.3 10 ^3/uL (0.4-5.4); Lymphocytes % (auto) 5.3 % (10.0-50.0); Mean Corpuscular Hemoglobin 34.1 pg (28.0-32.0); Mean Corpuscular Hgb Conc. 35.5 g/dL (32.0-36.0); Mean Corpuscular Volume 96.1 fL (80.0-100.0); Monocytes # (auto) 0.8 10 ^3/uL (0-1.3); Monocytes % (auto) 17.1 % (0.0-12.0); Neutrophils # (auto) 3.6 10 ^3/uL (1.6-8.6); Neutrophils % (auto) 77.3 % (37.0-80.0); Platelet Count (auto) 28 10^3/uL (140-450); Red Blood Cells 2.78 10^6/uL (4.5-5.90); Red Cell Distribution Width 14.6 % (11.8-14.3); White Blood Cell 4.7 10^3/uL (4.4-10.8)
[2020-09-28 04:59] LABS: Albumin 1.8 g/dL (3.4-5.0); Calcium 6.5 mg/dL (8.5-10.1); Potassium 4.3 mmol/L (3.5-5.1)
[2020-09-28 05:02] LABS: BUN/Creatinine Ratio 5.6; Bilirubin, Total 3.8 mg/dL (0.2-1.0); Total Protein 4.4 g/dL (6.4-8.2)
[2020-09-28] MEDS: methylPREDNISolone SOD SUCC 40 MG/ML VL IV SCH ×3 (06:06→22:20)
[2020-09-28] MEDS: metroNIDAZOLE 500MG/100ML 100 ML IV SCH ×3 (06:06→22:20)
[2020-09-28] MEDS: OCTREOTIDE ACETATE 100 MCG/ML VL SUBCUT SCH (06:06)
[2020-09-28] MEDS: INSULIN LANTUS (GLARGINE) 1 /0.01ml (100units/ml) SC SCH ×2 (06:06→22:37)
[2020-09-28] MEDS: NOREPINEPHRINE 8 MG/250ML KIT 250 ML IV SCH (06:45)
[2020-09-28] MEDS ORDERED: SODIUM CHL 0.9% 1000 ML BAG XX ONE (07:00)
[2020-09-28] MEDS: MIDAZOLAM DRIP 50 mg/50mL 50 ML IV SCH ×4 (07:33→20:30)
[2020-09-28] MEDS: BUMETANIDE INJECTION 25 MG in GIVE UN-DILUTED 0 ML IV SCH (08:44)
[2020-09-28] MEDS ORDERED: ALBUMIN 25% 100 ML IV PRN (09:15)
[2020-09-28] MEDS: DEXTROSE 10% 1,000 ML IV SCH (10:00)
[2020-09-28] MEDS: ALBUMIN 25% 100 ML IV SCH ×2 (11:00→11:40)
[2020-09-28] MEDS: DOPamine 1600MCG/ML D5W 250 ML IV SCH (11:15)
[2020-09-28] MEDS: PANTOPRAZOLE 40 MG/10 ML VIAL INJ IV SCH ×2 (11:38→22:20)
[2020-09-28] MEDS: FLUCONAZOLE 200MG/100ML 100 ML IV SCH (11:38)
[2020-09-28] MEDS: MAGNESIUM SULFATE 1GM/100ML 200 ML IV SCH (11:38)
[2020-09-28] MEDS: SODIUM CHLOR 0.9% PF (SALINE LOCK) 10ML VIAL/SYR IV SCH ×2 (11:38→22:20)
[2020-09-28] MEDS: VASOPRESSIN 50 UNITS in D5W 5% 247.5 ML IV SCH (12:45)
[2020-09-28] MEDS: CEFEPIME 1 GM in SODIUM CHL 0.9% 50 ML IV SCH (14:24)
[2020-09-28] MEDS: Nepro With Carb Steady 1 Liter Bottle GT SCH (15:13)
[2020-09-28] MEDS: fentaNYL Drip 2500mCg/250mlNS 250 ML IV SCH (15:21)
[2020-09-28] MEDS: VANCOMYCIN HCL 125MG/5ML ORAL SOL GT SCH (17:01)
[2020-09-28] MEDS: FLORASTOR (S. BOULARDII) 250 MG CAP GT SCH (17:02)
[2020-09-29] VITALS (107 sets, daily range): BP systolic 88–148; BP diastolic 47–76
[2020-09-29] MEDS ORDERED: InsuLIN REG 1unit/0.01ml Soln (100units/ml) ONE (00:10)
[2020-09-29] MEDS: VANCOMYCIN HCL 125MG/5ML ORAL SOL GT SCH ×4 (00:11→17:52)
[2020-09-29] MEDS: ACCU-CHEK COMFORT CURVE STRIP VI SCH ×6 (00:11→20:27)
[2020-09-29] MEDS: InsuLIN REG 1unit/0.01ml Soln (100units/ml) SC SCH ×6 (00:31→20:28)
[2020-09-29] MEDS: MIDAZOLAM DRIP 50 mg/50mL 50 ML IV SCH ×3 (01:45→22:00)
[2020-09-29 05:02] LABS: Hematocrit 25.5 % (41.0-53.0); Hemoglobin 9.1 g/dL (13.5-17.5); Mean Corpuscular Hemoglobin 34.4 pg (28.0-32.0); Mean Corpuscular Hgb Conc. 35.7 g/dL (32.0-36.0); Mean Corpuscular Volume 96.3 fL (80.0-100.0); Platelet Count (auto) 80 10^3/uL (140-450); Red Blood Cells 2.65 10^6/uL (4.5-5.90); Red Cell Distribution Width 15.1 % (11.8-14.3); White Blood Cell 7.9 10^3/uL (4.4-10.8)
[2020-09-29] MEDS: fentaNYL Drip 2500mCg/250mlNS 250 ML IV SCH (05:04)
[2020-09-29 05:14] LABS: INR 1.25 (0.9-1.15); Partial Thromboplastin Time 28.9 sec (23.0-31.2)
[2020-09-29 05:16] LABS: Basophils % (manual) 0 (0.0-2.0); Blast Cells 0; Eosinophils % (manual) 0 (0-7); Metamyelocytes % 0; Myelocytes % 0; Promyelocytes % 0; Reactive Lymphocytes 0
[2020-09-29 05:17] LABS: Potassium 3.9 mmol/L (3.5-5.1)
[2020-09-29 05:25] LABS: Albumin 1.7 g/dL (3.4-5.0); BUN/Creatinine Ratio 7.8; Bilirubin, Total 2.6 mg/dL (0.2-1.0); Calcium 6.4 mg/dL (8.5-10.1); Total Protein 4.1 g/dL (6.4-8.2)
[2020-09-29 05:53] LABS: Band Neutrophils % (manual) 21; Lymphocytes % (manual) 2 (10.0-50.0); Monocytes % (manual) 13 (0-12)
[2020-09-29] MEDS: metroNIDAZOLE 500MG/100ML 100 ML IV SCH ×3 (06:07→22:04)
[2020-09-29] MEDS: methylPREDNISolone SOD SUCC 40 MG/ML VL IV SCH (06:08)
[2020-09-29] MEDS: NOREPINEPHRINE 8 MG/250ML KIT 250 ML IV SCH (06:45)
[2020-09-29] MEDS: INSULIN LANTUS (GLARGINE) 1 /0.01ml (100units/ml) SC SCH ×2 (07:14→22:05)
[2020-09-29] MEDS: PANTOPRAZOLE 40 MG/10 ML VIAL INJ IV SCH (10:08)
[2020-09-29] MEDS: FLORASTOR (S. BOULARDII) 250 MG CAP GT SCH (10:08)
[2020-09-29] MEDS: MAGNESIUM SULFATE 1GM/100ML 200 ML IV SCH (10:08)
[2020-09-29] MEDS: FLUCONAZOLE 200MG/100ML 100 ML IV SCH (10:08)
[2020-09-29] MEDS: SODIUM CHLOR 0.9% PF (SALINE LOCK) 10ML VIAL/SYR IV SCH ×2 (10:09→22:04)
[2020-09-29] MEDS: VASOPRESSIN 50 UNITS in D5W 5% 247.5 ML IV SCH (12:12)
[2020-09-29] MEDS ORDERED: PROPOFOL 100 ML IV ONE (18:32)
[2020-09-29] MEDS ORDERED: methylPREDNISolone SOD SUCC 40 MG/ML VL IV SCH (22:00)
[2020-09-30] VITALS (108 sets, daily range): BP systolic 94–138; BP diastolic 49–86
[2020-09-30] MEDS: VANCOMYCIN HCL 125MG/5ML ORAL SOL GT SCH ×4 (00:16→18:00)
[2020-09-30] MEDS: ACCU-CHEK COMFORT CURVE STRIP VI SCH ×6 (00:16→20:01)
[2020-09-30] MEDS: fentaNYL Drip 2500mCg/250mlNS 250 ML IV SCH ×2 (00:23→12:25)
[2020-09-30] MEDS: InsuLIN REG 1unit/0.01ml Soln (100units/ml) SC SCH ×6 (00:23→20:14)
[2020-09-30] MEDS: CEFEPIME 1 GM in SODIUM CHL 0.9% 50 ML IV SCH ×2 (01:51→14:00)
[2020-09-30 04:37] LABS: Hematocrit 28.6 % (41.0-53.0); Mean Corpuscular Hemoglobin 33.7 pg (28.0-32.0); Mean Corpuscular Hgb Conc. 34.9 g/dL (32.0-36.0); Mean Corpuscular Volume 96.6 fL (80.0-100.0); Platelet Count (auto) 100 10^3/uL (140-450); Red Blood Cells 2.96 10^6/uL (4.5-5.90); White Blood Cell 13.7 10^3/uL (4.4-10.8)
[2020-09-30 04:53] LABS: Albumin 1.7 g/dL (3.4-5.0); Calcium 6.8 mg/dL (8.5-10.1); Potassium 4.2 mmol/L (3.5-5.1)
[2020-09-30 04:56] LABS: BUN/Creatinine Ratio 10.3; Bilirubin, Total 1.9 mg/dL (0.2-1.0); Total Protein 4.5 g/dL (6.4-8.2)
[2020-09-30 05:00] LABS: INR 1.13 (0.9-1.15); Partial Thromboplastin Time 25.4 sec (23.0-31.2)
[2020-09-30 05:02] LABS: Basophils % (manual) 0 (0.0-2.0); Blast Cells 0; Eosinophils % (manual) 0 (0-7); Metamyelocytes % 0; Myelocytes % 0; Promyelocytes % 0; Reactive Lymphocytes 0
[2020-09-30 05:19] LABS: Band Neutrophils % (manual) 37; Lymphocytes % (manual) 3 (10.0-50.0); Monocytes % (manual) 5 (0-12)
[2020-09-30] MEDS: metroNIDAZOLE 500MG/100ML 100 ML IV SCH ×3 (05:54→21:59)
[2020-09-30] MEDS: NOREPINEPHRINE 8 MG/250ML KIT 250 ML IV SCH ×2 (06:28→08:54)
[2020-09-30] MEDS: INSULIN LANTUS (GLARGINE) 1 /0.01ml (100units/ml) SC SCH ×2 (06:30→22:14)
[2020-09-30] MEDS ORDERED: SODIUM CHL 0.9% 1000 ML BAG XX ONE (07:00)
[2020-09-30] MEDS: FLUCONAZOLE 200MG/100ML 100 ML IV SCH (10:00)
[2020-09-30] MEDS ORDERED: methylPREDNISolone SOD SUCC 40 MG/ML VL IV SCH (10:00)
[2020-09-30] MEDS: PANTOPRAZOLE 40 MG/10 ML VIAL INJ IV SCH (10:00)
[2020-09-30] MEDS: SODIUM CHLOR 0.9% PF (SALINE LOCK) 10ML VIAL/SYR IV SCH ×2 (10:00→21:59)
[2020-09-30] MEDS: FLORASTOR (S. BOULARDII) 250 MG CAP GT SCH (10:00)
[2020-09-30] MEDS: PROPOFOL 100 ML IV SCH ×2 (11:00→16:09)
[2020-09-30] MEDS: MIDAZOLAM DRIP 50 mg/50mL 50 ML IV SCH (14:41)
[2020-09-30] MEDS ORDERED: EPOETIN ALFA-EPBX 10,000 UNIT/1ML VIAL SC ONE (21:00)
[2020-10-01] VITALS (108 sets, daily range): BP systolic 99–174; BP diastolic 53–98
[2020-10-01] MEDS: ACCU-CHEK COMFORT CURVE STRIP VI SCH ×6 (00:03→20:50)
[2020-10-01] MEDS: VANCOMYCIN HCL 125MG/5ML ORAL SOL GT SCH ×4 (00:03→18:00)
[2020-10-01] MEDS: InsuLIN REG 1unit/0.01ml Soln (100units/ml) SC SCH ×6 (00:05→20:50)
[2020-10-01] MEDS: PROPOFOL 100 ML IV SCH ×2 (00:38→09:46)
[2020-10-01] MEDS: fentaNYL Drip 2500mCg/250mlNS 250 ML IV SCH ×2 (00:39→12:47)
[2020-10-01 04:35] LABS: INR 1.13 (0.9-1.15); Partial Thromboplastin Time 24.4 sec (23.0-31.2)
[2020-10-01 04:46] LABS: Albumin 1.7 g/dL (3.4-5.0); Calcium 7.2 mg/dL (8.5-10.1); Potassium 4.2 mmol/L (3.5-5.1)
[2020-10-01 04:49] LABS: BUN/Creatinine Ratio 11.1; Bilirubin, Total 1.5 mg/dL (0.2-1.0); Total Protein 4.4 g/dL (6.4-8.2)
[2020-10-01] MEDS: metroNIDAZOLE 500MG/100ML 100 ML IV SCH ×3 (06:00→22:15)
[2020-10-01] MEDS: INSULIN LANTUS (GLARGINE) 1 /0.01ml (100units/ml) SC SCH ×2 (06:46→22:00)
[2020-10-01] MEDS: Nepro With Carb Steady 1 Liter Bottle GT SCH (09:40)
[2020-10-01] MEDS: FLORASTOR (S. BOULARDII) 250 MG CAP GT SCH (09:45)
[2020-10-01] MEDS: SODIUM CHLOR 0.9% PF (SALINE LOCK) 10ML VIAL/SYR IV SCH ×2 (09:45→22:15)
[2020-10-01] MEDS: PANTOPRAZOLE 40 MG/10 ML VIAL INJ IV SCH (09:45)
[2020-10-01] MEDS: FLUCONAZOLE 200MG/100ML 100 ML IV SCH (09:45)
[2020-10-01] MEDS: MIDAZOLAM DRIP 50 mg/50mL 50 ML IV SCH ×2 (09:46→13:48)
[2020-10-01] MEDS: CEFEPIME 0.5 GM in SODIUM CHL 0.9% 50 ML IV SCH (11:02)
[2020-10-02] VITALS (76 sets, daily range): BP systolic 99–178; BP diastolic 56–88
[2020-10-02] MEDS: VANCOMYCIN HCL 125MG/5ML ORAL SOL GT SCH ×4 (01:23→18:19)
[2020-10-02] MEDS: ACCU-CHEK COMFORT CURVE STRIP VI SCH ×5 (01:24→18:18)
[2020-10-02] MEDS: InsuLIN REG 1unit/0.01ml Soln (100units/ml) SC SCH ×4 (01:30→18:18)
[2020-10-02 04:10] LABS: White Blood Cell 10.6 10^3/uL (4.4-10.8)
[2020-10-02 04:14] LABS: Hematocrit 26.8 % (41.0-53.0); Hemoglobin 9.4 g/dL (13.5-17.5); Mean Corpuscular Hgb Conc. 35.1 g/dL (32.0-36.0); Mean Corpuscular Volume 96.9 fL (80.0-100.0); Platelet Count (auto) 113 10^3/uL (140-450); Red Blood Cells 2.77 10^6/uL (4.5-5.90); Red Cell Distribution Width 15.3 % (11.8-14.3)
[2020-10-02 04:20] LABS: Band Neutrophils % (manual) 0; Basophils % (manual) 0 (0.0-2.0); Blast Cells 0; Metamyelocytes % 0; Promyelocytes % 0; Reactive Lymphocytes 0
[2020-10-02 04:23] LABS: Albumin 1.5 g/dL (3.4-5.0); Calcium 6.9 mg/dL (8.5-10.1); Potassium 3.9 mmol/L (3.5-5.1)
[2020-10-02 04:27] LABS: BUN/Creatinine Ratio 13.3; Bilirubin, Total 1.3 mg/dL (0.2-1.0)
[2020-10-02 04:46] LABS: INR 1.1 (0.9-1.15); Partial Thromboplastin Time 24.8 sec (23.0-31.2)
[2020-10-02 05:27] LABS: Eosinophils % (manual) 1 (0-7); Lymphocytes % (manual) 10 (10.0-50.0); Monocytes % (manual) 3 (0-12); Myelocytes % 1
[2020-10-02] MEDS: NOREPINEPHRINE 8 MG/250ML KIT 250 ML IV SCH (06:45)
[2020-10-02] MEDS: metroNIDAZOLE 500MG/100ML 100 ML IV SCH (06:48)
[2020-10-02] MEDS: INSULIN LANTUS (GLARGINE) 1 /0.01ml (100units/ml) SC SCH ×2 (06:49→22:00)
[2020-10-02] MEDS: PROPOFOL 100 ML IV SCH ×2 (09:17→12:15)
[2020-10-02] MEDS: MIDAZOLAM DRIP 50 mg/50mL 50 ML IV SCH ×2 (09:18→12:16)
[2020-10-02] MEDS: FLORASTOR (S. BOULARDII) 250 MG CAP GT SCH (09:56)
[2020-10-02] MEDS: FLUCONAZOLE 200MG/100ML 100 ML IV SCH (09:56)
[2020-10-02] MEDS: PANTOPRAZOLE 40 MG/10 ML VIAL INJ IV SCH (09:57)
[2020-10-02] MEDS: SODIUM CHLOR 0.9% PF (SALINE LOCK) 10ML VIAL/SYR IV SCH ×2 (10:01→23:19)
[2020-10-02] MEDS: CEFEPIME 0.5 GM in SODIUM CHL 0.9% 50 ML IV SCH (11:00)
[2020-10-02] MEDS ORDERED: DEXTROSE (50%) 50ML SYRG IV PRN (12:30)
[2020-10-02] MEDS: metroNIDAZOLE 500 MG TAB PO SCH ×2 (14:31→23:19)
[2020-10-02] MEDS: fentaNYL Drip 2500mCg/250mlNS 250 ML IV SCH (17:45)
[2020-10-03] VITALS (34 sets, daily range): BP systolic 109–184; BP diastolic 67–122
[2020-10-03] MEDS: VANCOMYCIN HCL 125MG/5ML ORAL SOL GT SCH ×4 (01:01→18:10)
[2020-10-03] MEDS: ACCU-CHEK COMFORT CURVE STRIP VI SCH ×4 (01:01→18:11)
[2020-10-03] MEDS: InsuLIN REG 1unit/0.01ml Soln (100units/ml) SC SCH ×4 (01:04→18:00)
[2020-10-03 05:49] LABS: Hemoglobin 9.7 g/dL (13.5-17.5); Red Blood Cells 2.82 10^6/uL (4.5-5.90)
[2020-10-03 05:50] LABS: Hematocrit 27.7 % (41.0-53.0); Mean Corpuscular Hemoglobin 34.3 pg (28.0-32.0); Mean Corpuscular Hgb Conc. 34.9 g/dL (32.0-36.0); Mean Corpuscular Volume 98.3 fL (80.0-100.0); Platelet Count (auto) 123 10^3/uL (140-450); Red Cell Distribution Width 15.1 % (11.8-14.3); White Blood Cell 9.9 10^3/uL (4.4-10.8)
[2020-10-03 06:06] LABS: INR 1.03 (0.9-1.15); Partial Thromboplastin Time 25.5 sec (23.0-31.2)
[2020-10-03 06:13] LABS: Band Neutrophils % (manual) 0; Basophils % (manual) 0 (0.0-2.0); Blast Cells 0; Promyelocytes % 0; Reactive Lymphocytes 0
[2020-10-03 06:20] LABS: Calcium 7.3 mg/dL (8.5-10.1); Potassium 4.1 mmol/L (3.5-5.1)
[2020-10-03 06:39] LABS: Albumin 1.5 g/dL (3.4-5.0); BUN/Creatinine Ratio 12.6; Bilirubin, Total 1.1 mg/dL (0.2-1.0); Total Protein 4.6 g/dL (6.4-8.2)
[2020-10-03] MEDS: NOREPINEPHRINE 8 MG/250ML KIT 250 ML IV SCH (06:45)
[2020-10-03] MEDS: metroNIDAZOLE 500 MG TAB PO SCH ×3 (06:56→22:06)
[2020-10-03] MEDS: INSULIN LANTUS (GLARGINE) 1 /0.01ml (100units/ml) SC SCH ×2 (06:57→22:00)
[2020-10-03] MEDS ORDERED: SODIUM CHL 0.9% 1000 ML BAG XX ONE (07:00)
[2020-10-03 08:02] LABS: Eosinophils % (manual) 4 (0-7); Lymphocytes % (manual) 1 (10.0-50.0); Metamyelocytes % 1; Monocytes % (manual) 5 (0-12); Myelocytes % 1
[2020-10-03] MEDS: PANTOPRAZOLE 40 MG/10 ML VIAL INJ IV SCH (11:10)
[2020-10-03] MEDS: FLORASTOR (S. BOULARDII) 250 MG CAP GT SCH (11:10)
[2020-10-03] MEDS: SODIUM CHLOR 0.9% PF (SALINE LOCK) 10ML VIAL/SYR IV SCH ×3 (11:11→21:28)
[2020-10-03] MEDS: FLUCONAZOLE 200MG/100ML 100 ML IV SCH (15:29)
[2020-10-03] MEDS: CEFEPIME 0.5 GM in SODIUM CHL 0.9% 50 ML IV SCH (17:23)
[2020-10-03] MEDS: fentaNYL Drip 2500mCg/250mlNS 250 ML IV SCH (17:45)
[2020-10-03] MEDS: PROPOFOL 100 ML IV SCH (18:30)
[2020-10-03] MEDS ORDERED: EPINEPHrine HCL 0.5 ML NEB NEB ONE (19:00)
[2020-10-03] MEDS ORDERED: EPINEPHrine HCL 0.5 ML NEB ONE (19:00)
[2020-10-03] MEDS ORDERED: IPRATROPIUM BROM 0.5 MG/2.5ML INH SOL NEB PRN (19:30)
[2020-10-03] MEDS ORDERED: methylPREDNISolone SOD SUCC 125 MG/2 ML VL IV ONE (19:30)
[2020-10-03] MEDS ORDERED: ALBUTEROL SULF 2.5 MG/0.5ML(0.5%) NEB SOLN NEB PRN (19:30)
[2020-10-03] MEDS ORDERED: EPOETIN ALFA-EPBX 10,000 UNIT/1ML VIAL SC ONE (21:00)
[2020-10-03] MEDS: ALBUTEROL SULF 2.5 MG/0.5ML(0.5%) NEB SOLN NEB SCH (23:40)
[2020-10-03] MEDS: IPRATROPIUM BROM 0.5 MG/2.5ML INH SOL NEB SCH (23:40)
[2020-10-04] VITALS (22 sets, daily range): BP systolic 108–153; BP diastolic 69–91
[2020-10-04] MEDS: VANCOMYCIN HCL 125MG/5ML ORAL SOL GT SCH ×4 (00:30→18:33)
[2020-10-04] MEDS: ACCU-CHEK COMFORT CURVE STRIP VI SCH ×4 (00:30→18:00)
[2020-10-04] MEDS: InsuLIN REG 1unit/0.01ml Soln (100units/ml) SC SCH ×4 (00:30→18:00)
[2020-10-04 04:18] LABS: Hematocrit 28.8 % (41.0-53.0); Hemoglobin 10.1 g/dL (13.5-17.5); Mean Corpuscular Hemoglobin 33.8 pg (28.0-32.0); Mean Corpuscular Hgb Conc. 34.9 g/dL (32.0-36.0); Mean Corpuscular Volume 96.8 fL (80.0-100.0); Platelet Count (auto) 114 10^3/uL (140-450); Red Blood Cells 2.97 10^6/uL (4.5-5.90); Red Cell Distribution Width 14.5 % (11.8-14.3); White Blood Cell 10.7 10^3/uL (4.4-10.8)
[2020-10-04 04:22] LABS: Basophils % (manual) 0 (0.0-2.0); Blast Cells 0; Eosinophils % (manual) 0 (0-7); Myelocytes % 0; Promyelocytes % 0; Reactive Lymphocytes 0
[2020-10-04 04:38] LABS: INR 1.04 (0.9-1.15); Partial Thromboplastin Time 24.8 sec (23.0-31.2)
[2020-10-04 04:42] LABS: Albumin 1.8 g/dL (3.4-5.0); Calcium 7.7 mg/dL (8.5-10.1); Potassium 4.5 mmol/L (3.5-5.1)
[2020-10-04 04:47] LABS: BUN/Creatinine Ratio 11.2; Bilirubin, Total 1.3 mg/dL (0.2-1.0); Total Protein 5.1 g/dL (6.4-8.2)
[2020-10-04 05:39] LABS: Band Neutrophils % (manual) 1; Metamyelocytes % 1
[2020-10-04 05:40] LABS: Lymphocytes % (manual) 3 (10.0-50.0); Monocytes % (manual) 2 (0-12)
[2020-10-04] MEDS: IPRATROPIUM BROM 0.5 MG/2.5ML INH SOL NEB SCH ×3 (06:00→19:31)
[2020-10-04] MEDS: ALBUTEROL SULF 2.5 MG/0.5ML(0.5%) NEB SOLN NEB SCH ×3 (06:00→19:31)
[2020-10-04] MEDS: metroNIDAZOLE 500 MG TAB PO SCH ×3 (06:26→21:19)
[2020-10-04] MEDS: NOREPINEPHRINE 8 MG/250ML KIT 250 ML IV SCH (06:45)
[2020-10-04] MEDS ORDERED: SODIUM CHL 0.9% 1000 ML BAG XX ONE (07:00)
[2020-10-04] MEDS: INSULIN LANTUS (GLARGINE) 1 /0.01ml (100units/ml) SC SCH ×2 (07:00→21:45)
[2020-10-04] MEDS: MIDAZOLAM DRIP 50 mg/50mL 50 ML IV SCH (07:20)
[2020-10-04] MEDS: FLUCONAZOLE 200MG/100ML 100 ML IV SCH (09:33)
[2020-10-04] MEDS: FLORASTOR (S. BOULARDII) 250 MG CAP GT SCH (09:35)
[2020-10-04] MEDS: SODIUM CHLOR 0.9% PF (SALINE LOCK) 10ML VIAL/SYR IV SCH ×2 (09:36→21:14)
[2020-10-04] MEDS: PANTOPRAZOLE 40 MG/10 ML VIAL INJ IV SCH (09:36)
[2020-10-04] MEDS: CEFEPIME 0.5 GM in SODIUM CHL 0.9% 50 ML IV SCH (10:00)
[2020-10-04] MEDS: BUMETANIDE 2.5mg/10ml (0.25 mg/ml) INJ IV SCH ×2 (15:45→18:33)
[2020-10-04] MEDS ORDERED: EPOETIN ALFA-EPBX 10,000 UNIT/1ML VIAL SC ONE (21:00)
[2020-10-05] VITALS (24 sets, daily range): BP systolic 102–167; BP diastolic 64–101
[2020-10-05] MEDS: ACCU-CHEK COMFORT CURVE STRIP VI SCH ×5 (00:10→23:51)
[2020-10-05] MEDS: VANCOMYCIN HCL 125MG/5ML ORAL SOL GT SCH ×5 (00:11→23:51)
[2020-10-05] MEDS: IPRATROPIUM BROM 0.5 MG/2.5ML INH SOL NEB SCH ×4 (00:53→19:00)
[2020-10-05] MEDS: ALBUTEROL SULF 2.5 MG/0.5ML(0.5%) NEB SOLN NEB SCH ×4 (00:53→18:59)
[2020-10-05] MEDS: InsuLIN REG 1unit/0.01ml Soln (100units/ml) SC SCH ×5 (01:20→23:51)
[2020-10-05 04:47] LABS: Hematocrit 26.6 % (41.0-53.0); Hemoglobin 9.2 g/dL (13.5-17.5); Mean Corpuscular Hemoglobin 33.9 pg (28.0-32.0); Mean Corpuscular Hgb Conc. 34.7 g/dL (32.0-36.0); Mean Corpuscular Volume 97.8 fL (80.0-100.0); Platelet Count (auto) 139 10^3/uL (140-450); Red Blood Cells 2.72 10^6/uL (4.5-5.90); Red Cell Distribution Width 14.7 % (11.8-14.3)
[2020-10-05 04:49] LABS: Basophils % (manual) 0 (0.0-2.0); Blast Cells 0; Eosinophils % (manual) 0 (0-7); Metamyelocytes % 0; Myelocytes % 0; Promyelocytes % 0; Reactive Lymphocytes 0
[2020-10-05 04:57] LABS: Calcium 7.4 mg/dL (8.5-10.1); Potassium 3.9 mmol/L (3.5-5.1)
[2020-10-05 05:00] LABS: BUN/Creatinine Ratio 11.3
[2020-10-05 05:34] LABS: Band Neutrophils % (manual) 4; Lymphocytes % (manual) 7 (10.0-50.0); Monocytes % (manual) 5 (0-12)
[2020-10-05] MEDS: metroNIDAZOLE 500 MG TAB PO SCH ×3 (05:46→22:12)
[2020-10-05] MEDS: BUMETANIDE 2.5mg/10ml (0.25 mg/ml) INJ IV SCH ×2 (06:20→17:21)
[2020-10-05] MEDS: INSULIN LANTUS (GLARGINE) 1 /0.01ml (100units/ml) SC SCH ×2 (06:38→22:00)
[2020-10-05] MEDS ORDERED: SODIUM CHL 0.9% 1000 ML BAG XX ONE (07:00)
[2020-10-05] MEDS: PANTOPRAZOLE 40 MG/10 ML VIAL INJ IV SCH (09:11)
[2020-10-05] MEDS: SODIUM CHLOR 0.9% PF (SALINE LOCK) 10ML VIAL/SYR IV SCH ×2 (09:11→22:00)
[2020-10-05] MEDS: FLUCONAZOLE 200MG/100ML 100 ML IV SCH (09:11)
[2020-10-05] MEDS: CEFEPIME 0.5 GM in SODIUM CHL 0.9% 50 ML IV SCH (10:24)
[2020-10-05] MEDS ORDERED: THIAMINE HCL 100 MG TAB PO ONE (11:45)
[2020-10-05] MEDS ORDERED: ASPirin 81 mg TAB PO ONE (13:45)
[2020-10-05] MEDS ORDERED: EPOETIN ALFA-EPBX 10,000 UNIT/1ML VIAL SC ONE (21:00)
[2020-10-06] VITALS (23 sets, daily range): BP systolic 107–165; BP diastolic 72–99
[2020-10-06] MEDS: ALBUTEROL SULF 2.5 MG/0.5ML(0.5%) NEB SOLN NEB SCH ×4 (00:22→20:26)
[2020-10-06] MEDS: IPRATROPIUM BROM 0.5 MG/2.5ML INH SOL NEB SCH ×4 (00:22→20:26)
[2020-10-06 04:10] LABS: Basophils # (auto) 0 10 ^3/uL (0-0.2); Basophils % (auto) 0.3 % (0.0-2.0); Eosinophils # (auto) 0.1 10 ^3/uL (0-0.8); Eosinophils % (auto) 1.3 % (0.0-7.0); Hematocrit 26.5 % (41.0-53.0); Hemoglobin 9.2 g/dL (13.5-17.5); Lymphocytes # (auto) 0.4 10 ^3/uL (0.4-5.4); Lymphocytes % (auto) 5.5 % (10.0-50.0); Mean Corpuscular Hemoglobin 33.5 pg (28.0-32.0); Mean Corpuscular Hgb Conc. 34.5 g/dL (32.0-36.0); Mean Corpuscular Volume 97.2 fL (80.0-100.0); Monocytes # (auto) 1.1 10 ^3/uL (0-1.3); Monocytes % (auto) 14.6 % (0.0-12.0); Neutrophils # (auto) 6.1 10 ^3/uL (1.6-8.6); Neutrophils % (auto) 78.3 % (37.0-80.0); Platelet Count (auto) 144 10^3/uL (140-450); Red Blood Cells 2.73 10^6/uL (4.5-5.90); Red Cell Distribution Width 14.2 % (11.8-14.3); White Blood Cell 7.8 10^3/uL (4.4-10.8)
[2020-10-06 04:29] LABS: Albumin 1.8 g/dL (3.4-5.0); Calcium 7.4 mg/dL (8.5-10.1); Potassium 3.4 mmol/L (3.5-5.1)
[2020-10-06 04:33] LABS: Bilirubin, Total 1.3 mg/dL (0.2-1.0); Total Protein 4.9 g/dL (6.4-8.2)
[2020-10-06] MEDS: InsuLIN REG 1unit/0.01ml Soln (100units/ml) SC SCH ×3 (05:41→17:12)
[2020-10-06] MEDS: ACCU-CHEK COMFORT CURVE STRIP VI SCH ×3 (05:41→17:12)
[2020-10-06] MEDS: VANCOMYCIN HCL 125MG/5ML ORAL SOL GT SCH ×3 (05:44→17:11)
[2020-10-06] MEDS: metroNIDAZOLE 500 MG TAB PO SCH ×3 (06:00→22:28)
[2020-10-06] MEDS: BUMETANIDE 2.5mg/10ml (0.25 mg/ml) INJ IV SCH ×2 (06:05→17:12)
[2020-10-06] MEDS: INSULIN LANTUS (GLARGINE) 1 /0.01ml (100units/ml) SC SCH ×2 (06:59→22:00)
[2020-10-06] MEDS: THIAMINE HCL 100 MG TAB PO SCH (09:03)
[2020-10-06] MEDS: ASPirin 81 mg TAB PO SCH (09:03)
[2020-10-06] MEDS: FAMOTIDINE 20 MG TAB PO SCH (09:03)
[2020-10-06] MEDS: CEFEPIME 0.5 GM in SODIUM CHL 0.9% 50 ML IV SCH (09:04)
[2020-10-06] MEDS: SODIUM CHLOR 0.9% PF (SALINE LOCK) 10ML VIAL/SYR IV SCH ×2 (09:07→22:27)
[2020-10-06] MEDS: HEPARIN SODIUM (PORCINE) 5000 UNITS/ML 1ML VIAL SC SCH (22:42)
[2020-10-07] MEDS: ACCU-CHEK COMFORT CURVE STRIP VI SCH ×5 (00:03→22:49)
[2020-10-07] MEDS: VANCOMYCIN HCL 125MG/5ML ORAL SOL GT SCH ×3 (00:03→12:25)
[2020-10-07] MEDS: InsuLIN REG 1unit/0.01ml Soln (100units/ml) SC SCH ×5 (00:16→22:49)
[2020-10-07] MEDS: IPRATROPIUM BROM 0.5 MG/2.5ML INH SOL NEB SCH ×4 (00:32→19:24)
[2020-10-07] MEDS: ALBUTEROL SULF 2.5 MG/0.5ML(0.5%) NEB SOLN NEB SCH ×4 (00:32→19:25)
[2020-10-07 00:39] VITALS: BP 143/81
[2020-10-07 05:00] VITALS: BP 135/77
[2020-10-07] MEDS: metroNIDAZOLE 500 MG TAB PO SCH ×3 (06:35→22:48)
[2020-10-07] MEDS: INSULIN LANTUS (GLARGINE) 1 /0.01ml (100units/ml) SC SCH ×2 (06:39→22:00)
[2020-10-07] MEDS: BUMETANIDE 2.5mg/10ml (0.25 mg/ml) INJ IV SCH (06:39)
[2020-10-07 08:40] VITALS: BP 121/78
[2020-10-07] MEDS ORDERED: POTASSIUM CHL 20 Meq TABLET PO ONE ×2 (09:00→13:30)
[2020-10-07] MEDS: ASPirin 81 mg TAB PO SCH (09:57)
[2020-10-07] MEDS: FAMOTIDINE 20 MG TAB PO SCH (09:57)
[2020-10-07] MEDS: THIAMINE HCL 100 MG TAB PO SCH (09:57)
[2020-10-07] MEDS: SODIUM CHLOR 0.9% PF (SALINE LOCK) 10ML VIAL/SYR IV SCH ×2 (09:57→22:51)
[2020-10-07] MEDS: HEPARIN SODIUM (PORCINE) 5000 UNITS/ML 1ML VIAL SC SCH ×2 (09:58→22:47)
[2020-10-07] MEDS ORDERED: levoFLOXacin 500MG 100 ML IV ONE (10:00)
[2020-10-07 10:09] LABS: Basophils # (auto) 0 10 ^3/uL (0-0.2); Basophils % (auto) 0.6 % (0.0-2.0); Eosinophils # (auto) 0.1 10 ^3/uL (0-0.8); Eosinophils % (auto) 1.4 % (0.0-7.0); Hematocrit 25.4 % (41.0-53.0); Lymphocytes # (auto) 0.5 10 ^3/uL (0.4-5.4); Lymphocytes % (auto) 6.7 % (10.0-50.0); Mean Corpuscular Hemoglobin 33.9 pg (28.0-32.0); Mean Corpuscular Hgb Conc. 35.5 g/dL (32.0-36.0); Mean Corpuscular Volume 95.6 fL (80.0-100.0); Monocytes # (auto) 1.2 10 ^3/uL (0-1.3); Monocytes % (auto) 15.1 % (0.0-12.0); Neutrophils % (auto) 76.2 % (37.0-80.0); Platelet Count (auto) 160 10^3/uL (140-450); Red Blood Cells 2.65 10^6/uL (4.5-5.90); Red Cell Distribution Width 14.2 % (11.8-14.3); White Blood Cell 7.8 10^3/uL (4.4-10.8)
[2020-10-07 10:27] LABS: BUN/Creatinine Ratio 10.2
[2020-10-07 10:32] LABS: Potassium 2.8 mmol/L (3.5-5.1)
[2020-10-07 13:00] VITALS: BP 132/86
[2020-10-07 17:00] VITALS: BP 133/89
[2020-10-07] MEDS: VANCOMYCIN HCL 125MG/5ML ORAL SOL PO SCH ×2 (18:06→22:49)
[2020-10-07 22:00] VITALS: BP 148/84
[2020-10-08 05:47] VITALS: BP 155/79
[2020-10-08] MEDS: InsuLIN REG 1unit/0.01ml Soln (100units/ml) SC SCH ×4 (05:55→23:41)
[2020-10-08] MEDS: VANCOMYCIN HCL 125MG/5ML ORAL SOL PO SCH ×4 (05:56→23:35)
[2020-10-08] MEDS: ACCU-CHEK COMFORT CURVE STRIP VI SCH ×4 (05:58→23:35)
[2020-10-08] MEDS: metroNIDAZOLE 500 MG TAB PO SCH ×3 (05:58→21:56)
[2020-10-08] MEDS: INSULIN LANTUS (GLARGINE) 1 /0.01ml (100units/ml) SC SCH ×2 (06:00→23:35)
[2020-10-08 07:43] LABS: BUN/Creatinine Ratio 11.7; Calcium 6.8 mg/dL (8.5-10.1)
[2020-10-08 07:47] LABS: Potassium 2.9 mmol/L (3.5-5.1)
[2020-10-08 09:23] VITALS: BP 146/86
[2020-10-08] MEDS ORDERED: levoFLOXacin 500MG 100 ML IV SCH (10:00)
[2020-10-08] MEDS: FAMOTIDINE 20 MG TAB PO SCH (10:50)
[2020-10-08] MEDS: THIAMINE HCL 100 MG TAB PO SCH (10:50)
[2020-10-08] MEDS: ASPirin 81 mg TAB PO SCH (10:50)
[2020-10-08] MEDS: POTASSIUM CHL 20 Meq TABLET PO SCH ×2 (10:50→21:56)
[2020-10-08] MEDS: SODIUM CHLOR 0.9% PF (SALINE LOCK) 10ML VIAL/SYR IV SCH ×2 (10:51→21:56)
[2020-10-08] MEDS: POTASSIUM CHL 20MEQ/100ML 100 ML IV SCH ×3 (10:51→15:53)
[2020-10-08] MEDS: HEPARIN SODIUM (PORCINE) 5000 UNITS/ML 1ML VIAL SC SCH ×2 (10:58→21:57)
[2020-10-08] MEDS: HYDROcodone-ACET 7.5/325MG TAB PO PRN ×2 (12:14→20:16)
[2020-10-08 13:04] VITALS: BP 131/77
[2020-10-08] MEDS ORDERED: POTASSIUM CHL 20 Meq TABLET PO ONE (14:30)
[2020-10-08 17:03] VITALS: BP 145/87
[2020-10-08 21:47] VITALS: BP 142/77
[2020-10-09 05:04] VITALS: BP 146/83
[2020-10-09] MEDS: InsuLIN REG 1unit/0.01ml Soln (100units/ml) SC SCH ×4 (06:00→23:22)
[2020-10-09] MEDS: ACCU-CHEK COMFORT CURVE STRIP VI SCH ×4 (06:22→23:22)
[2020-10-09] MEDS: VANCOMYCIN HCL 125MG/5ML ORAL SOL PO SCH ×4 (06:22→23:22)
[2020-10-09] MEDS: INSULIN LANTUS (GLARGINE) 1 /0.01ml (100units/ml) SC SCH ×2 (06:23→18:29)
[2020-10-09] MEDS: metroNIDAZOLE 500 MG TAB PO SCH ×3 (06:23→22:04)
[2020-10-09 08:00] VITALS: BP 153/83
[2020-10-09] MEDS ORDERED: ADENOSINE 64 MG in GIVE UN-DILUTED 0 ML IV STA (08:36)
[2020-10-09] MEDS ORDERED: FAMOTIDINE 20 MG TAB PO SCH (10:00)
[2020-10-09] MEDS: SODIUM CHLOR 0.9% PF (SALINE LOCK) 10ML VIAL/SYR IV SCH ×2 (10:00→22:05)
[2020-10-09 10:11] LABS: Basophils # (auto) 0 10 ^3/uL (0-0.2); Eosinophils # (auto) 0.2 10 ^3/uL (0-0.8); Lymphocytes # (auto) 0.5 10 ^3/uL (0.4-5.4)
[2020-10-09 10:13] LABS: Basophils % (auto) 0.2 % (0.0-2.0); Eosinophils % (auto) 2.5 % (0.0-7.0); Hematocrit 26.2 % (41.0-53.0); Lymphocytes % (auto) 6.9 % (10.0-50.0); Mean Corpuscular Hemoglobin 33.4 pg (28.0-32.0); Mean Corpuscular Hgb Conc. 34.5 g/dL (32.0-36.0); Monocytes % (auto) 12.4 % (0.0-12.0); Platelet Count (auto) 178 10^3/uL (140-450); Red Cell Distribution Width 14.4 % (11.8-14.3); White Blood Cell 7.7 10^3/uL (4.4-10.8)
[2020-10-09 11:42] LABS: Potassium 3.8 mmol/L (3.5-5.1)
[2020-10-09 11:44] VITALS: BP 135/82
[2020-10-09 11:53] LABS: BUN/Creatinine Ratio 12.4; Calcium 7.8 mg/dL (8.5-10.1)
[2020-10-09 12:00] VITALS: BP 143/88
[2020-10-09] MEDS: HEPARIN SODIUM (PORCINE) 5000 UNITS/ML 1ML VIAL SC SCH ×2 (13:20→22:04)
[2020-10-09] MEDS: ASPirin 81 mg TAB PO SCH (14:04)
[2020-10-09] MEDS: THIAMINE HCL 100 MG TAB PO SCH (14:04)
[2020-10-09] MEDS: FAMOTIDINE 20 MG TAB PO SCH (14:05)
[2020-10-09] MEDS: POTASSIUM CHL 20 Meq TABLET PO SCH ×2 (14:05→22:04)
[2020-10-09 16:00] VITALS: BP 154/85
[2020-10-09 22:00] VITALS: BP 154/90
[2020-10-09] MEDS: HYDROcodone-ACET 7.5/325MG TAB PO PRN (22:30)
[2020-10-10 01:27] VITALS: BP 154/90
[2020-10-10 05:19] VITALS: BP 140/75
[2020-10-10] MEDS: VANCOMYCIN HCL 125MG/5ML ORAL SOL PO SCH ×3 (05:31→18:19)
[2020-10-10] MEDS: ACCU-CHEK COMFORT CURVE STRIP VI SCH ×3 (05:31→18:20)
[2020-10-10] MEDS: InsuLIN REG 1unit/0.01ml Soln (100units/ml) SC SCH ×3 (05:31→18:00)
[2020-10-10] MEDS: metroNIDAZOLE 500 MG TAB PO SCH ×3 (05:31→21:22)
[2020-10-10 05:41] LABS: Basophils # (auto) 0.1 10 ^3/uL (0-0.2); Basophils % (auto) 1.4 % (0.0-2.0); Eosinophils # (auto) 0.3 10 ^3/uL (0-0.8); Eosinophils % (auto) 4.3 % (0.0-7.0); Hemoglobin 8.7 g/dL (13.5-17.5); Lymphocytes # (auto) 0.5 10 ^3/uL (0.4-5.4); Lymphocytes % (auto) 7.8 % (10.0-50.0); Mean Corpuscular Hemoglobin 33.9 pg (28.0-32.0); Mean Corpuscular Volume 96.9 fL (80.0-100.0); Monocytes # (auto) 0.8 10 ^3/uL (0-1.3); Monocytes % (auto) 11.5 % (0.0-12.0); Neutrophils # (auto) 5.1 10 ^3/uL (1.6-8.6); Platelet Count (auto) 182 10^3/uL (140-450); Red Blood Cells 2.58 10^6/uL (4.5-5.90); Red Cell Distribution Width 14.5 % (11.8-14.3); White Blood Cell 6.8 10^3/uL (4.4-10.8)
[2020-10-10 06:00] LABS: BUN/Creatinine Ratio 14.7; Calcium 7.6 mg/dL (8.5-10.1); Magnesium 1.3 mg/dL (1.6-2.6); Phosphorus 3.2 mg/dL (2.5-4.90); Potassium 3.8 mmol/L (3.5-5.1)
[2020-10-10 09:00] VITALS: BP 136/91
[2020-10-10] MEDS: MAGNESIUM SULFATE 1GM/100ML 100 ML IV SCH ×2 (10:07→12:23)
[2020-10-10] MEDS: POTASSIUM CHL 20 Meq TABLET PO SCH ×2 (10:09→21:22)
[2020-10-10] MEDS: HEPARIN SODIUM (PORCINE) 5000 UNITS/ML 1ML VIAL SC SCH (10:09)
[2020-10-10] MEDS: amLODIPine BESYLATE 5 MG TAB PO SCH (10:10)
[2020-10-10] MEDS: ASPirin 81 mg TAB PO SCH (10:10)
[2020-10-10] MEDS: FAMOTIDINE 20 MG TAB PO SCH (10:11)
[2020-10-10] MEDS: THIAMINE HCL 100 MG TAB PO SCH (10:11)
[2020-10-10] MEDS: SODIUM CHLOR 0.9% PF (SALINE LOCK) 10ML VIAL/SYR IV SCH ×2 (10:12→21:25)
[2020-10-10] MEDS ORDERED: ERGOCALCIFEROL 50,000 UNIT(1.25MG) CAP PO SCH (12:30)
[2020-10-10 13:00] VITALS: BP 142/82
[2020-10-10 17:28] VITALS: BP 134/82
[2020-10-10] MEDS: INSULIN LANTUS (GLARGINE) 1 /0.01ml (100units/ml) SC SCH (18:00)
[2020-10-10] MEDS: GABAPENTIN 100 MG CAP PO SCH (18:19)
[2020-10-10] MEDS: HYDROcodone-ACET 7.5/325MG TAB PO PRN (21:23)
[2020-10-10] MEDS: ATORVASTATIN 20 MG TAB PO SCH (21:25)
[2020-10-10 22:00] VITALS: BP 139/86
[2020-10-11] MEDS: VANCOMYCIN HCL 125MG/5ML ORAL SOL PO SCH ×5 (00:01→23:41)
[2020-10-11] MEDS: ACCU-CHEK COMFORT CURVE STRIP VI SCH ×5 (00:16→23:41)
[2020-10-11 05:06] VITALS: BP 126/84
[2020-10-11] MEDS: InsuLIN REG 1unit/0.01ml Soln (100units/ml) SC SCH ×5 (05:22→23:57)
[2020-10-11] MEDS: metroNIDAZOLE 500 MG TAB PO SCH ×3 (05:22→22:04)
[2020-10-11 05:49] LABS: Basophils # (auto) 0.1 10 ^3/uL (0-0.2); Basophils % (auto) 1.9 % (0.0-2.0); Eosinophils # (auto) 0.4 10 ^3/uL (0-0.8); Eosinophils % (auto) 8.1 % (0.0-7.0); Hematocrit 25.4 % (41.0-53.0); Lymphocytes # (auto) 0.6 10 ^3/uL (0.4-5.4); Lymphocytes % (auto) 11.6 % (10.0-50.0); Mean Corpuscular Hemoglobin 34.1 pg (28.0-32.0); Mean Corpuscular Hgb Conc. 35.5 g/dL (32.0-36.0); Mean Corpuscular Volume 95.9 fL (80.0-100.0); Monocytes # (auto) 0.6 10 ^3/uL (0-1.3); Monocytes % (auto) 13.3 % (0.0-12.0); Neutrophils # (auto) 3.1 10 ^3/uL (1.6-8.6); Neutrophils % (auto) 65.1 % (37.0-80.0); Platelet Count (auto) 134 10^3/uL (140-450); Red Blood Cells 2.64 10^6/uL (4.5-5.90); Red Cell Distribution Width 14.2 % (11.8-14.3); White Blood Cell 4.8 10^3/uL (4.4-10.8)
[2020-10-11 06:24] LABS: Albumin 2.2 g/dL (3.4-5.0); Calcium 7.3 mg/dL (8.5-10.1)
[2020-10-11 08:17] LABS: BUN/Creatinine Ratio 15.7; Bilirubin, Total 1.2 mg/dL (0.2-1.0); Total Protein 5.4 g/dL (6.4-8.2)
[2020-10-11 09:00] VITALS: BP 140/83
[2020-10-11] MEDS: FAMOTIDINE 20 MG TAB PO SCH (09:31)
[2020-10-11] MEDS: SODIUM CHLOR 0.9% PF (SALINE LOCK) 10ML VIAL/SYR IV SCH ×2 (09:31→22:04)
[2020-10-11] MEDS: FLORASTOR (S. BOULARDII) 250 MG CAP PO SCH (09:31)
[2020-10-11] MEDS: THIAMINE HCL 100 MG TAB PO SCH (09:32)
[2020-10-11] MEDS: POTASSIUM CHL 20 Meq TABLET PO SCH (09:32)
[2020-10-11] MEDS: ASPirin 81 mg TAB PO SCH (09:32)
[2020-10-11] MEDS: amLODIPine BESYLATE 5 MG TAB PO SCH (09:33)
[2020-10-11 13:00] VITALS: BP 134/78
[2020-10-11] MEDS: FUROSEMIDE 40 MG/4 ML VIAL IV SCH (13:51)
[2020-10-11 17:18] VITALS: BP 122/78
[2020-10-11] MEDS: GABAPENTIN 100 MG CAP PO SCH (18:01)
[2020-10-11] MEDS: INSULIN LANTUS (GLARGINE) 1 /0.01ml (100units/ml) SC SCH (18:34)
[2020-10-11] MEDS: ATORVASTATIN 20 MG TAB PO SCH (22:05)
[2020-10-11] MEDS: HYDROcodone-ACET 7.5/325MG TAB PO PRN (22:06)
[2020-10-11 22:27] VITALS: BP 107/76
[2020-10-12] MEDS: HYDROcodone-ACET 7.5/325MG TAB PO PRN ×3 (04:15→20:05)
[2020-10-12 04:58] VITALS: BP 119/63
[2020-10-12] MEDS: VANCOMYCIN HCL 125MG/5ML ORAL SOL PO SCH ×4 (05:45→23:31)
[2020-10-12] MEDS: InsuLIN REG 1unit/0.01ml Soln (100units/ml) SC SCH ×4 (05:46→23:39)
[2020-10-12] MEDS: metroNIDAZOLE 500 MG TAB PO SCH ×3 (05:46→22:35)
[2020-10-12] MEDS: ACCU-CHEK COMFORT CURVE STRIP VI SCH ×4 (05:46→23:31)
[2020-10-12 07:21] LABS: Protein, Urine 44.8 mg/dL (0.0-11.9)
[2020-10-12 07:27] LABS: BUN/Creatinine Ratio 17.7; Calcium 7.1 mg/dL (8.5-10.1); Potassium 3.9 mmol/L (3.5-5.1)
[2020-10-12] MEDS: THIAMINE HCL 100 MG TAB PO SCH (08:40)
[2020-10-12] MEDS: FAMOTIDINE 20 MG TAB PO SCH (08:40)
[2020-10-12] MEDS: FLORASTOR (S. BOULARDII) 250 MG CAP PO SCH (08:40)
[2020-10-12] MEDS: SODIUM CHLOR 0.9% PF (SALINE LOCK) 10ML VIAL/SYR IV SCH ×2 (08:41→22:35)
[2020-10-12] MEDS: amLODIPine BESYLATE 5 MG TAB PO SCH (08:41)
[2020-10-12] MEDS: ASPirin 81 mg TAB PO SCH (08:41)
[2020-10-12] MEDS: FUROSEMIDE 40 MG/4 ML VIAL IV SCH (08:41)
[2020-10-12 09:00] VITALS: BP 128/76
[2020-10-12] MEDS: MAGNESIUM SULFATE 1GM/100ML 100 ML IV SCH ×2 (11:35→12:52)
[2020-10-12 13:00] VITALS: BP 123/75
[2020-10-12] MEDS: GABAPENTIN 100 MG CAP PO SCH (17:14)
[2020-10-12] MEDS: INSULIN LANTUS (GLARGINE) 1 /0.01ml (100units/ml) SC SCH (17:41)
[2020-10-12 19:09] VITALS: BP 123/75
[2020-10-12 22:00] VITALS: BP 125/79
[2020-10-12] MEDS: ATORVASTATIN 20 MG TAB PO SCH (22:36)
[2020-10-12] MEDS: MAGNESIUM OXIDE 400 MG TAB PO SCH (22:36)
[2020-10-13] MEDS: HYDROcodone-ACET 7.5/325MG TAB PO PRN ×2 (02:30→14:49)
[2020-10-13 05:00] VITALS: BP 113/72
[2020-10-13] MEDS: metroNIDAZOLE 500 MG TAB PO SCH ×2 (05:41→14:00)
[2020-10-13] MEDS: VANCOMYCIN HCL 125MG/5ML ORAL SOL PO SCH ×3 (05:43→18:00)
[2020-10-13] MEDS: ACCU-CHEK COMFORT CURVE STRIP VI SCH ×3 (05:44→18:00)
[2020-10-13] MEDS: InsuLIN REG 1unit/0.01ml Soln (100units/ml) SC SCH ×3 (05:47→18:00)
[2020-10-13 06:01] LABS: Basophils # (auto) 0.1 10 ^3/uL (0-0.2); Basophils % (auto) 1.4 % (0.0-2.0); Eosinophils # (auto) 0.5 10 ^3/uL (0-0.8); Eosinophils % (auto) 11.7 % (0.0-7.0); Hematocrit 26.1 % (41.0-53.0); Hemoglobin 9.3 g/dL (13.5-17.5); Lymphocytes # (auto) 0.5 10 ^3/uL (0.4-5.4); Lymphocytes % (auto) 12.7 % (10.0-50.0); Mean Corpuscular Hemoglobin 33.8 pg (28.0-32.0); Mean Corpuscular Hgb Conc. 35.7 g/dL (32.0-36.0); Mean Corpuscular Volume 94.5 fL (80.0-100.0); Monocytes # (auto) 0.6 10 ^3/uL (0-1.3); Monocytes % (auto) 13.4 % (0.0-12.0); Neutrophils # (auto) 2.5 10 ^3/uL (1.6-8.6); Neutrophils % (auto) 60.8 % (37.0-80.0); Platelet Count (auto) 165 10^3/uL (140-450); Red Blood Cells 2.76 10^6/uL (4.5-5.90); Red Cell Distribution Width 13.9 % (11.8-14.3); White Blood Cell 4.1 10^3/uL (4.4-10.8)
[2020-10-13 06:13] LABS: BUN/Creatinine Ratio 20.8; Calcium 7.8 mg/dL (8.5-10.1); Potassium 3.6 mmol/L (3.5-5.1)
[2020-10-13 06:20] LABS: INR 1.13 (0.9-1.15); Partial Thromboplastin Time 24.8 sec (23.0-31.2)
[2020-10-13] MEDS ORDERED: IODIXANOL 320MG/ML 100ML BTL IV ONE (07:37)
[2020-10-13] MEDS ORDERED: LIDOCAINE 2%HCL (LOCAL ANESTH.) INJ 20ML MDV ONE (07:37)
[2020-10-13] MEDS ORDERED: HEPARIN IN NS 1000Units/500mL 1,500 ML ONE (07:37)
[2020-10-13] MEDS ORDERED: HEPARIN SODIUM (PORCINE) 5000 UNITS/ML 1ML VIAL ONE (07:48)
[2020-10-13] MEDS ORDERED: ANGIOMAX 250 MG VIAL IV ONE (07:48)
[2020-10-13] MEDS ORDERED: MIDAZOLAM HCL 1MG/1ML-2 ML VIAL ONE (07:49)
[2020-10-13] MEDS ORDERED: SODIUM CHL 0.9% 0 ML ONE (07:49)
[2020-10-13] MEDS ORDERED: VERAPAMIL 2.5MG/ML INJ 2ML VIAL IV ONE (07:49)
[2020-10-13] MEDS ORDERED: fentaNYL CITRATE 100 MCG/2 ML VL ONE (07:49)
[2020-10-13 09:00] VITALS: BP 120/73
[2020-10-13] MEDS: FLORASTOR (S. BOULARDII) 250 MG CAP PO SCH (09:39)
[2020-10-13] MEDS: MAGNESIUM OXIDE 400 MG TAB PO SCH (09:39)
[2020-10-13] MEDS: FAMOTIDINE 20 MG TAB PO SCH (09:39)
[2020-10-13] MEDS: SODIUM CHLOR 0.9% PF (SALINE LOCK) 10ML VIAL/SYR IV SCH (09:39)
[2020-10-13] MEDS: ASPirin 81 mg TAB PO SCH (09:39)
[2020-10-13] MEDS: THIAMINE HCL 100 MG TAB PO SCH (09:39)
[2020-10-13] MEDS: FUROSEMIDE 40 MG/4 ML VIAL IV SCH (09:40)
[2020-10-13 13:00] VITALS: BP 131/79
[2020-10-13 17:00] VITALS: BP 128/79
[2020-10-13] MEDS: INSULIN LANTUS (GLARGINE) 1 /0.01ml (100units/ml) SC SCH (18:00)
[2020-10-13] MEDS: GABAPENTIN 100 MG CAP PO SCH (18:00)
== END 2020-10-13 16:20 | disposition home or self-care (01) | DRG 720 ==
LOC: ER 21:45 → EDBD 21:45 → TELE 09-23 01:36 → ICU WEST 09-23 08:55 → TELE-CENTR 10-06 23:27
PROVIDERS: ADMIT Nurse Practitioner Family; ATTEND Internal Medicine
PROC: 5A1955Z Respiratory Ventilation, Greater than 96 Consecutive Hours (ICD-10-PCS; 2020-09-23)
PROC: 04HY32Z Insertion of Monitoring Device into Lower Artery, Percutaneous Approach (ICD-10-PCS; 2020-09-23)
PROC: 4A133B1 Monitoring of Arterial Pressure, Peripheral, Percutaneous Approach (ICD-10-PCS; 2020-09-23)
PROC: 4A133J1 Monitoring of Arterial Pulse, Peripheral, Percutaneous Approach (ICD-10-PCS; 2020-09-23)
PROC: 02HV33Z Insertion of Infusion Device into Superior Vena Cava, Percutaneous Approach (ICD-10-PCS; 2020-09-23)
PROC: 0BH17EZ Insertion of Endotracheal Airway into Trachea, Via Natural or Artificial Opening (ICD-10-PCS; 2020-09-23)
PROC: 30233N1 Transfusion of Nonautologous Red Blood Cells into Peripheral Vein, Percutaneous Approach (ICD-10-PCS; 2020-09-26)
PROC: 06HY33Z Insertion of Infusion Device into Lower Vein, Percutaneous Approach (ICD-10-PCS; 2020-09-27)
PROC: 5A1D70Z Performance of Urinary Filtration, Intermittent, Less than 6 Hours Per Day (ICD-10-PCS; 2020-09-27)
PROC: 30233K1 Transfusion of Nonautologous Frozen Plasma into Peripheral Vein, Percutaneous Approach (ICD-10-PCS; 2020-09-27)
PROC: 30233R1 Transfusion of Nonautologous Platelets into Peripheral Vein, Percutaneous Approach (ICD-10-PCS; 2020-09-27)
PROC: 5A1D70Z Performance of Urinary Filtration, Intermittent, Less than 6 Hours Per Day (ICD-10-PCS; 2020-09-28)
PROC: 5A1D70Z Performance of Urinary Filtration, Intermittent, Less than 6 Hours Per Day (ICD-10-PCS; 2020-09-30)
PROC: 5A1D70Z Performance of Urinary Filtration, Intermittent, Less than 6 Hours Per Day (ICD-10-PCS; 2020-10-03)
PROC: 5A1D70Z Performance of Urinary Filtration, Intermittent, Less than 6 Hours Per Day (ICD-10-PCS; 2020-10-04)
PROC: 5A1D70Z Performance of Urinary Filtration, Intermittent, Less than 6 Hours Per Day (ICD-10-PCS; 2020-10-05)
PROC: 4A023N7 Measurement of Cardiac Sampling and Pressure, Left Heart, Percutaneous Approach (ICD-10-PCS; principal; 2020-10-13)
PROC: B211YZZ Fluoroscopy of Multiple Coronary Arteries using Other Contrast (ICD-10-PCS; 2020-10-13)
PROC: B215YZZ Fluoroscopy of Left Heart using Other Contrast (ICD-10-PCS; 2020-10-13)
DX: A41.9 Sepsis, unspecified organism (principal); J96.01 Acute respiratory failure with hypoxia; N17.0 Acute kidney failure with tubular necrosis; K72.00 Acute and subacute hepatic failure without coma; E10.11 Type 1 diabetes mellitus with ketoacidosis with coma; J90 Pleural effusion, not elsewhere classified; A04.72 Enterocolitis due to Clostridium difficile, not specified as recurrent; I47.2 Ventricular tachycardia; R65.21 Severe sepsis with septic shock; N18.6 End stage renal disease; J18.9 Pneumonia, unspecified organism; Z20.822 Contact with and (suspected) exposure to COVID-19; D69.6 Thrombocytopenia, unspecified; E87.5 Hyperkalemia; E87.1 Hypo-osmolality and hyponatremia; E86.0 Dehydration; E87.6 Hypokalemia; E83.51 Hypocalcemia; D68.9 Coagulation defect, unspecified; M62.82 Rhabdomyolysis; E83.42 Hypomagnesemia; E10.42 Type 1 diabetes mellitus with diabetic polyneuropathy; D64.9 Anemia, unspecified; E10.22 Type 1 diabetes mellitus with diabetic chronic kidney disease; E46 Unspecified protein-calorie malnutrition; E78.1 Pure hyperglyceridemia; G40.909 Epilepsy, unspecified, not intractable, without status epilepticus; E10.51 Type 1 diabetes mellitus with diabetic peripheral angiopathy without gangrene; R68.0 Hypothermia, not associated with low environmental temperature; K74.60 Unspecified cirrhosis of liver; K76.0 Fatty (change of) liver, not elsewhere classified; Z91.19 Patient's noncompliance with other medical treatment and regimen; Z91.14 Patient's other noncompliance with medication regimen; Z79.4 Long term (current) use of insulin; Z68.24 Body mass index [BMI] 24.0-24.9, adult; Z79.899 Other long term (current) drug therapy; Z82.49 Family history of ischemic heart disease and other diseases of the circulatory system; Z99.2 Dependence on renal dialysis
CPT/HCPCS: 31500; 36415; 36569; 36600; 51702; 70450; 71045; 71250; 74018; 74176; 78452; 80048; 80053; 80061; 80074; 80202; 80307; 81001; 82010; 82040; 82140; 82150; 82270; 82306; 82310; 82550; 82570; 82805; 82962; 83010; 83036; 83605; 83615; 83690; 83735; 83880; 83930; 83970; 84100; 84156; 84300; 85007; 85025; 85027; 85045; 85048; 85610; 85730; 86225; 86235; 86703; 86704; 86706; 86708; 86803; 86850; 86880; 86900; 86901; 86920; 87040; 87045; 87070; 87077; 87081; 87205; 87340; 87426; 87427; 87493; 87804; 90935; 92610; 93005; 93017; 93306; 93458; 93971; 94002; 94003; 94640; 95819; 96361; 96365; 96372; 96375; 96376; 97110; 97116; 97163; 97530; 99152; 99291; A4618; C9113; G0378; J0153; J0330; J0610; J0696; J1450; J1642; J1815; J1956; J2250; J2405; J2543; J2704; J3480; J3490; J7060; P9047; Q9967

== ENCOUNTER 2020-11-06 10:38 | Emergency (ER) | payer MEDICAID ==
[~2020-11-06] VITALS: Ht 170.2 cm; Wt 62.1 kg
[2020-11-06 15:13] VITALS: BP 131/97
== END 2020-11-06 15:54 | disposition home or self-care (01) ==
LOC: ER 10:38
DX: I80.9 Phlebitis and thrombophlebitis of unspecified site (principal); I82.622 Acute embolism and thrombosis of deep veins of left upper extremity
CPT/HCPCS: 93971

== ENCOUNTER 2020-12-15 09:41 | Emergency (ER) | payer MEDICAID ==
[~2020-12-15] VITALS: Ht 170.2 cm; Wt 68.0 kg
[2020-12-15 10:04] LABS: Basophils # (auto) 0.1 10 ^3/uL (0-0.2); Basophils % (auto) 0.4 % (0.0-2.0); Eosinophils # (auto) 0 10 ^3/uL (0-0.8); Eosinophils % (auto) 0.2 % (0.0-7.0); Hematocrit 37.7 % (41.0-53.0); Hemoglobin 13.2 g/dL (13.5-17.5); Lymphocytes # (auto) 1.7 10 ^3/uL (0.4-5.4); Lymphocytes % (auto) 12.8 % (10.0-50.0); Mean Corpuscular Hemoglobin 29.7 pg (28.0-32.0); Monocytes # (auto) 0.8 10 ^3/uL (0-1.3); Monocytes % (auto) 5.7 % (0.0-12.0); Neutrophils % (auto) 80.9 % (37.0-80.0); Nucleated Red Blood Cells % 0.1 %; Platelet Count (auto) 192 10^3/uL (140-450); Red Blood Cells 4.44 10^6/uL (4.5-5.90); Red Cell Distribution Width 13.2 % (11.8-14.3); White Blood Cell 13.6 10^3/uL (4.4-10.8)
[2020-12-15] MEDS ORDERED: SODIUM CHLORIDE 0.9% 1,000 ML IV ONE (10:15)
[2020-12-15] MEDS ORDERED: LORazepam 2MG/ML-1ML VIAL IV ONE (10:15)
[2020-12-15 10:24] LABS: Alanine Aminotransferase 28 U/L (16-61); Albumin 3.9 g/dL (3.4-5.0); Anion Gap 15 (5-15); Aspartate Aminotransferase 27 U/L (15-37); BUN/Creatinine Ratio 15.2; Blood Alcohol < 3.0 mg/dL (0-5); Blood Urea Nitrogen 10 mg/dL (7-18); Carbon Dioxide 21 mmol/L (21-32); Chloride 101 mmol/L (98-107); GFR African American 182 mL/min; GFR Non-African American 151 mL/min; Glucose 177 mg/dL (74-106); Potassium 3.4 mmol/L (3.5-5.1); Sodium 137 mmol/L (136-145)
[2020-12-15 10:26] LABS: Alkaline Phosphatase 115 U/L (45-117); Bilirubin, Total 0.8 mg/dL (0.2-1.0); Total Protein 7.8 g/dL (6.4-8.2)
[2020-12-15 14:33] VITALS: BP 134/109
[2020-12-15 15:27] LABS: Urine Bacteria NONE SEEN /hpf (None Seen); Urine Blood Negative /uL (Negative); Urine Specific Gravity 1.006 (1.001-1.035); Urine WBC <1 /hpf (0 - 3)
== END 2020-12-15 16:55 | disposition home or self-care (01) ==
LOC: ER 09:41
DX: F10.239 Alcohol dependence with withdrawal, unspecified (principal); I10 Essential (primary) hypertension; R00.0 Tachycardia, unspecified; Y90.9 Presence of alcohol in blood, level not specified; Z79.899 Other long term (current) drug therapy
CPT/HCPCS: 36415; 80053; 80320; 81001; 85025; 96361; 96374; 99283; J2060

== ENCOUNTER 2021-01-04 02:22 | Emergency (ER) | payer MEDICAID ==
[~2021-01-04] VITALS: Ht 170.2 cm; Wt 54.4 kg
[2021-01-04 03:06] VITALS: BP 153/97
== END 2021-01-04 05:55 | disposition home or self-care (01) ==
LOC: EDBD 02:22 → ER 02:29
DX: F10.129 Alcohol abuse with intoxication, unspecified (principal); E11.9 Type 2 diabetes mellitus without complications; Y90.8 Blood alcohol level of 240 mg/100 ml or more

== ENCOUNTER 2021-11-05 10:21 | Inpatient (IN) | payer MEDICAID ==
[~2021-11-05] VITALS: Ht 170.2 cm; Wt 64.0 kg
[2021-11-05] MEDS ORDERED: ONDANSETRON HCL 4 MG/2 ML VIAL IV ONE (11:00)
[2021-11-05] MEDS ORDERED: DEXTROSE (50%) 50ML SYRG IV PRN (11:00)
[2021-11-05] MEDS ORDERED: SODIUM CHLORIDE 0.9% 1,000 ML IV ONE (11:00)
[2021-11-05] MEDS ORDERED: InsuLIN REG 1unit/0.01ml Soln (100units/ml) IV ONE (11:00)
[2021-11-05] MEDS ORDERED: INSULIN LANTUS (GLARGINE) 1 /0.01ml (100units/ml) SC ONE (11:00)
[2021-11-05 11:20] LABS: Basophils # (auto) 0.1 10 ^3/uL (0-0.2); Basophils % (auto) 0.4 % (0.0-2.0); Eosinophils # (auto) 0 10 ^3/uL (0-0.8); Hematocrit 43.3 % (41.0-53.0); Hemoglobin 14.4 g/dL (13.5-17.5); Lymphocytes # (auto) 0.3 10 ^3/uL (0.4-5.4); Lymphocytes % (auto) 1.6 % (10.0-50.0); Mean Corpuscular Hemoglobin 31.8 pg (28.0-32.0); Mean Corpuscular Hgb Conc. 33.3 g/dL (32.0-36.0); Mean Corpuscular Volume 95.6 fL (80.0-100.0); Monocytes # (auto) 0.5 10 ^3/uL (0-1.3); Monocytes % (auto) 2.7 % (0.0-12.0); Neutrophils # (auto) 16.5 10 ^3/uL (1.6-8.6); Neutrophils % (auto) 95.3 % (37.0-80.0); Red Blood Cells 4.53 10^6/uL (4.5-5.90); Red Cell Distribution Width 13.9 % (11.8-14.3); White Blood Cell 17.3 10^3/uL (4.4-10.8)
[2021-11-05 12:16] LABS: Albumin 3.7 g/dL (3.4-5.0); Potassium 4.8 mmol/L (3.5-5.1)
[2021-11-05] MEDS: InsuLIN R (HUMAN) 100 UNITS in SODIUM CHL 0.9% 99 ML IV SCH ×4 (12:23→21:32)
[2021-11-05] MEDS: ACCU-CHEK COMFORT CURVE STRIP VI SCH ×8 (12:24→22:30)
[2021-11-05 12:25] LABS: BUN/Creatinine Ratio 19.4; Bilirubin, Total 1.2 mg/dL (0.2-1.0); Total Protein 8.5 g/dL (6.4-8.2)
[2021-11-05 13:38] LABS: Urine Bacteria NONE SEEN /hpf (None Seen); Urine Blood 1+ /uL (Negative); Urine Mucus FEW (None Seen); Urine Specific Gravity 1.015 (1.001-1.035); Urine WBC 3 /hpf (0 - 3)
[2021-11-05] MEDS ORDERED: MORPHINE SULFATE INJECTION 2 MG/ML SYRG IV PRN (13:45)
[2021-11-05] MEDS ORDERED: HYDROcodone-ACET 5/325MG TAB PO PRN (13:45)
[2021-11-05] MEDS ORDERED: ONDANSETRON HCL 4 MG/2 ML VIAL IV PRN (13:45)
[2021-11-05] MEDS ORDERED: NITROGLYCERIN 0.4 MG SL TAB SL PRN (13:45)
[2021-11-05] MEDS ORDERED: DOCUSATE SOD 100 MG CAP PO PRN (13:45)
[2021-11-05] MEDS ORDERED: ACETAMINOPHEN 325 MG TAB PO PRN (13:45)
[2021-11-05 14:18] LABS: Alcohol, Urine < 3.0 mg/dL (0-10); Amphetamine Screen, Urine NEGATIVE (NEGATIVE); Barbiturate Scree,Urine NEGATIVE (NEGATIVE); Benzodiazephine Screen, Urine NEGATIVE (NEGATIVE); Cannabinoid Screen, Urine NEGATIVE (NEGATIVE); Cocaine Screen, Urine NEGATIVE (NEGATIVE); Opiate Scree,Urine NEGATIVE (NEGATIVE); Phencyclidine Screen, Urine NEGATIVE (NEGATIVE)
[2021-11-05 23:10] LABS: BUN/Creatinine Ratio 25.5; Calcium 8.6 mg/dL (8.5-10.1); Potassium 3.4 mmol/L (3.5-5.1)
[2021-11-06] VITALS (87 sets, daily range): BP systolic 86–133; BP diastolic 41–85
[2021-11-06] MEDS: SODIUM BICARBONATE 50ML VIAL 100 ML in D5W 5% 1,000 ML IV SCH ×2 (00:03→07:57)
[2021-11-06] MEDS: ACCU-CHEK COMFORT CURVE STRIP VI SCH ×15 (00:09→22:45)
[2021-11-06] MEDS: InsuLIN R (HUMAN) 100 UNITS in SODIUM CHL 0.9% 99 ML IV SCH (01:47)
[2021-11-06] MEDS ORDERED: SODIUM BICARBONATE 8.4 % INJ 50ML VIAL IV ONE (03:23)
[2021-11-06 04:38] LABS: Basophils # (auto) 0 10 ^3/uL (0-0.2); Basophils % (auto) 0.2 % (0.0-2.0); Eosinophils # (auto) 0 10 ^3/uL (0-0.8); Hematocrit 40.8 % (41.0-53.0); Hemoglobin 14.6 g/dL (13.5-17.5); Lymphocytes # (auto) 0.4 10 ^3/uL (0.4-5.4); Lymphocytes % (auto) 3.1 % (10.0-50.0); Mean Corpuscular Hemoglobin 32.3 pg (28.0-32.0); Mean Corpuscular Hgb Conc. 35.9 g/dL (32.0-36.0); Monocytes # (auto) 0.4 10 ^3/uL (0-1.3); Neutrophils # (auto) 13.5 10 ^3/uL (1.6-8.6); Neutrophils % (auto) 93.7 % (37.0-80.0); Red Blood Cells 4.53 10^6/uL (4.5-5.90); Red Cell Distribution Width 13.9 % (11.8-14.3); White Blood Cell 14.4 10^3/uL (4.4-10.8)
[2021-11-06 04:51] LABS: BUN/Creatinine Ratio 26.1; Calcium 8.7 mg/dL (8.5-10.1)
[2021-11-06] MEDS: POTASSIUM CHL 20MEQ/100ML 100 ML IV SCH ×4 (06:30→23:00)
[2021-11-06] MEDS: FOLIC ACID 1 MG TAB PO SCH (09:18)
[2021-11-06] MEDS: THIAMINE HCL 100 MG TAB PO SCH (09:18)
[2021-11-06] MEDS: ATORVASTATIN 20 MG TAB PO SCH (09:18)
[2021-11-06] MEDS ORDERED: INSULIN LANTUS (GLARGINE) 1 /0.01ml (100units/ml) SC SCH ×2 (10:00→14:30)
[2021-11-06] MEDS ORDERED: SODIUM BICARBONATE 50ML VIAL 50 ML in SOD CHL 0.45% 1,000 ML IV SCH (10:00)
[2021-11-06] MEDS ORDERED: SOD CHL 0.45% 1,000 ML IV SCH (10:15)
[2021-11-06 10:25] LABS: BUN/Creatinine Ratio 28.6; Calcium 8.7 mg/dL (8.5-10.1); Potassium 3.5 mmol/L (3.5-5.1)
[2021-11-06] MEDS: D5W/SOD CHL 0.45% 1,000 ML IV SCH ×2 (11:52→18:15)
[2021-11-06] MEDS ORDERED: POTASSIUM EFFERVESENT TAB 25 MEQ PO ONE (13:45)
[2021-11-06 14:22] LABS: BUN/Creatinine Ratio 26.1; Calcium 8.6 mg/dL (8.5-10.1); Potassium 3.3 mmol/L (3.5-5.1)
[2021-11-06] MEDS ORDERED: ENOXAPARIN SOD 40 MG/0.4 ML SYRINGE SC SCH (14:30)
[2021-11-06] MEDS: PANTOPRAZOLE 40 MG/10 ML VIAL INJ IV SCH (15:08)
[2021-11-06] MEDS: cefTRIAXone 1GM/50ML D5W 50 ML IV SCH (15:08)
[2021-11-06 19:28] LABS: BUN/Creatinine Ratio 27.3; Calcium 8.6 mg/dL (8.5-10.1); Potassium 3.1 mmol/L (3.5-5.1)
[2021-11-06] MEDS ORDERED: POTASSIUM CHL 20MEQ/100ML 200 ML IV ONE (20:38)
[2021-11-06 22:41] LABS: BUN/Creatinine Ratio 25.6; Calcium 8.5 mg/dL (8.5-10.1); Magnesium 2.8 mg/dL (1.6-2.6); Potassium 3.1 mmol/L (3.5-5.1)
[2021-11-06] MEDS ORDERED: SODIUM CHLORIDE 0.9% 1,000 ML IV SCH (23:15)
[2021-11-07] VITALS (22 sets, daily range): BP systolic 96–139; BP diastolic 53–91
[2021-11-07] MEDS: ACCU-CHEK COMFORT CURVE STRIP VI SCH ×4 (00:50→12:26)
[2021-11-07] MEDS: InsuLIN REG 1unit/0.01ml Soln (100units/ml) SC SCH ×4 (00:52→12:00)
[2021-11-07 04:24] LABS: Calcium 8.3 mg/dL (8.5-10.1); Potassium 3.1 mmol/L (3.5-5.1)
[2021-11-07 04:26] LABS: BUN/Creatinine Ratio 25.5
[2021-11-07 04:32] LABS: INR 1.01 (0.9-1.15); Partial Thromboplastin Time 25.5 sec (23.6-33.0)
[2021-11-07 04:54] LABS: Basophils # (auto) 0.1 10 ^3/uL (0-0.2); Eosinophils # (auto) 0 10 ^3/uL (0-0.8); Eosinophils % (auto) 0.1 % (0.0-7.0); Hematocrit 35.3 % (41.0-53.0); Hemoglobin 12.8 g/dL (13.5-17.5); Lymphocytes # (auto) 0.5 10 ^3/uL (0.4-5.4); Lymphocytes % (auto) 8.4 % (10.0-50.0); Mean Corpuscular Hemoglobin 32.3 pg (28.0-32.0); Mean Corpuscular Hgb Conc. 36.2 g/dL (32.0-36.0); Mean Corpuscular Volume 89.2 fL (80.0-100.0); Monocytes # (auto) 0.4 10 ^3/uL (0-1.3); Monocytes % (auto) 5.8 % (0.0-12.0); Neutrophils # (auto) 5.4 10 ^3/uL (1.6-8.6); Neutrophils % (auto) 84.7 % (37.0-80.0); Nucleated Red Blood Cells % 0.1 %; Red Blood Cells 3.95 10^6/uL (4.5-5.90); Red Cell Distribution Width 13.4 % (11.8-14.3); White Blood Cell 6.4 10^3/uL (4.4-10.8)
[2021-11-07] MEDS: POTASSIUM CHL 20MEQ/100ML 100 ML IV SCH ×3 (06:35→10:15)
[2021-11-07] MEDS ORDERED: POTASSIUM EFFERVESENT TAB 25 MEQ PO ONE (08:15)
[2021-11-07] MEDS ORDERED: POTA-180 PO (08:33)
[2021-11-07] MEDS ORDERED: FOLI1TAB6 PO (08:33)
[2021-11-07] MEDS ORDERED: INSREGI SC (08:33)
[2021-11-07] MEDS ORDERED: LEVO500T31 PO (08:33)
[2021-11-07] MEDS ORDERED: ATOR20TA PO (08:33)
[2021-11-07] MEDS ORDERED: INSU1INJ19 SC (08:33)
[2021-11-07] MEDS ORDERED: THIA100T10 PO (08:33)
[2021-11-07] MEDS: cefTRIAXone 1GM/50ML D5W 50 ML IV SCH (08:41)
[2021-11-07] MEDS ORDERED: INSULIN LANTUS (GLARGINE) 1 /0.01ml (100units/ml) SC SCH (10:00)
[2021-11-07] MEDS: PANTOPRAZOLE 40 MG/10 ML VIAL INJ IV SCH (10:26)
[2021-11-07] MEDS: FOLIC ACID 1 MG TAB PO SCH (10:26)
[2021-11-07] MEDS: ATORVASTATIN 20 MG TAB PO SCH (10:26)
[2021-11-07] MEDS: THIAMINE HCL 100 MG TAB PO SCH (10:26)
== END 2021-11-07 16:55 | disposition home or self-care (01) | DRG 420 ==
LOC: EDUNIT# 10:21 → EDBD 10:21 → ER 10:21 → TELE 13:32 → ICU WEST 23:43
PROVIDERS: ADMIT Internal Medicine; ATTEND Internal Medicine
DX: E11.10 Type 2 diabetes mellitus with ketoacidosis without coma (principal); N17.9 Acute kidney failure, unspecified; D69.6 Thrombocytopenia, unspecified; E86.0 Dehydration; E87.6 Hypokalemia; N39.0 Urinary tract infection, site not specified; F10.10 Alcohol abuse, uncomplicated; Z20.822 Contact with and (suspected) exposure to COVID-19; Y90.9 Presence of alcohol in blood, level not specified; Z91.19 Patient's noncompliance with other medical treatment and regimen; Z79.4 Long term (current) use of insulin; Z82.49 Family history of ischemic heart disease and other diseases of the circulatory system
CPT/HCPCS: 36415; 36600; 71045; 76775; 80048; 80053; 80307; 81001; 82010; 82805; 82962; 83036; 83735; 83930; 84132; 85025; 85610; 85730; 87081; 93005; 96361; 96372; 96374; 96375; 99291; C9113; G0378; J0696; J1815; J2405; J3480

== ENCOUNTER 2022-08-05 22:03 | Inpatient (IN) | payer MEDICAID ==
[~2022-08-05] VITALS: Ht 170.2 cm; Wt 67.7 kg
[~2022-08-05 22:03] MED LIST changes: +FOLI1TAB6 PO; +INSREGI SC; +INSU100I4 SC; +INSU1INJ19 SC; +LEVO500T31 PO; +POTA-180 PO; +THIA100T10 PO
[2022-08-05] MEDS ORDERED: ACCU-CHEK COMFORT CURVE STRIP VI ONE (22:30)
[2022-08-05] MEDS ORDERED: ONDANSETRON HCL 4 MG/2 ML VIAL IV ONE (23:00)
[2022-08-05] MEDS ORDERED: InsuLIN R (HUMAN) 100 UNITS in SODIUM CHL 0.9% 99 ML IV SCH (23:00)
[2022-08-05] MEDS ORDERED: INSULIN LANTUS (GLARGINE) 1 /0.01ml (100units/ml) SC ONE (23:00)
[2022-08-05] MEDS ORDERED: SODIUM CHLORIDE 0.9% 1,000 ML IV ONE ×2 (23:00)
[2022-08-05] MEDS ORDERED: DEXTROSE (50%) 50ML SYRG IV PRN (23:00)
[2022-08-05 23:02] LABS: Basophils # (auto) 0.3 10 ^3/uL (0-0.2); Basophils % (auto) 1.1 % (0.0-2.0); Eosinophils # (auto) 0 10 ^3/uL (0-0.8); Eosinophils % (auto) 0.1 % (0.0-7.0); Hematocrit 45.4 % (41.0-53.0); Hemoglobin 14.3 g/dL (13.5-17.5); Lymphocytes # (auto) 0.4 10 ^3/uL (0.4-5.4); Lymphocytes % (auto) 1.5 % (10.0-50.0); Mean Corpuscular Hemoglobin 29.8 pg (28.0-32.0); Mean Corpuscular Hgb Conc. 31.6 g/dL (32.0-36.0); Mean Corpuscular Volume 94.4 fL (80.0-100.0); Monocytes # (auto) 1.5 10 ^3/uL (0-1.3); Monocytes % (auto) 5.6 % (0.0-12.0); Neutrophils # (auto) 25.1 10 ^3/uL (1.6-8.6); Neutrophils % (auto) 91.7 % (37.0-80.0); Nucleated Red Blood Cells % 0.5 %; Red Blood Cells 4.81 10^6/uL (4.5-5.90); Red Cell Distribution Width 13.9 % (11.8-14.3); White Blood Cell 27.3 10^3/uL (4.4-10.8)
[2022-08-05 23:18] LABS: Albumin 3.6 g/dL (3.4-5.0); Calcium 8.7 mg/dL (8.5-10.1); Magnesium 2.5 mg/dL (1.6-2.6)
[2022-08-05 23:22] LABS: Bilirubin, Total 0.9 mg/dL (0.2-1.0); Phosphorus 5.6 mg/dL (2.5-4.90); Total Protein 8.4 g/dL (6.4-8.2)
[2022-08-05 23:39] LABS: BUN/Creatinine Ratio 16.1
[2022-08-06] MEDS ORDERED: POTASSIUM CHL 20MEQ/100ML 100 ML IV ONE
[2022-08-06] MEDS ORDERED: InsuLIN REG 1unit/0.01ml Soln (100units/ml) ONE (00:04)
[2022-08-06 01:03] LABS: Urine Bacteria FEW /hpf (None Seen); Urine Blood 1+ /uL (Negative); Urine Mucus FEW (None Seen); Urine Specific Gravity 1.016 (1.001-1.035); Urine WBC <1 /hpf (0 - 3)
[2022-08-06] MEDS: ACCU-CHEK COMFORT CURVE STRIP VI SCH ×15 (01:45→22:30)
[2022-08-06] MEDS ORDERED: DEXTROSE (50%) 50ML SYRG IV PRN ×3 (04:30→19:00)
[2022-08-06] MEDS: SODIUM CHLORIDE 0.9% 1,000 ML IV SCH ×5 (04:30→23:53)
[2022-08-06] MEDS ORDERED: NITROGLYCERIN 0.4 MG SL TAB SL PRN (04:30)
[2022-08-06] MEDS ORDERED: MORPHINE SULFATE INJ 2 MG/ml SYRG IV PRN (04:30)
[2022-08-06] MEDS ORDERED: SODIUM BICARBONATE 8.4 % INJ 50ML VIAL IV ONE ×2 (05:00→05:16)
[2022-08-06] MEDS: SODIUM BICARBONATE 50ML VIAL 100 ML in SODIUM CHLORIDE 0.9% 1,000 ML IV SCH ×2 (05:41→17:14)
[2022-08-06 06:37] LABS: BUN/Creatinine Ratio 16.4; Calcium 8.8 mg/dL (8.5-10.1); Potassium 3.7 mmol/L (3.5-5.1)
[2022-08-06] MEDS ORDERED: INSULIN LANTUS (GLARGINE) 1 /0.01ml (100units/ml) SC SCH (10:00)
[2022-08-06 11:24] LABS: BUN/Creatinine Ratio 14.5; Calcium 7.2 mg/dL (8.5-10.1); Potassium 3.7 mmol/L (3.5-5.1)
[2022-08-06] MEDS ORDERED: chlordiazePOXIDE HCL 25 MG CAP PO PRN (13:30)
[2022-08-06] MEDS: INSULIN LANTUS (GLARGINE) 1 /0.01ml (100units/ml) SC SCH ×2 (14:00→23:05)
[2022-08-06] MEDS: PIPERACILLIN-TAZOB 3.375GM 100 ML IV SCH ×2 (14:46→18:00)
[2022-08-06] MEDS ORDERED: InsuLIN REG 1unit/0.01ml Soln (100units/ml) SC SCH (16:00)
[2022-08-06] MEDS ORDERED: ACCU-CHEK COMFORT CURVE STRIP VI SCH (16:00)
[2022-08-06 17:46] LABS: BUN/Creatinine Ratio 12.1; Calcium 7.6 mg/dL (8.5-10.1)
[2022-08-06 18:36] LABS: Potassium 2.9 mmol/L (3.5-5.1)
[2022-08-06] MEDS ORDERED: POTASSIUM CHLORIDE 80 MEQ, LIDOCAINE 1% (LOCAL ANESTH.) 6 ML in SODIUM CHL 0.9% 500 ML IV ONE (19:00)
[2022-08-06] MEDS ORDERED: POTASSIUM EFFERVESENT TAB 25 MEQ PO ONE (19:00)
[2022-08-06] MEDS: SODIUM BICARB 50ML SYR 100 ML in D5W/SOD CHL 0.45% 1,000 ML IV SCH (20:21)
[2022-08-07] MEDS: PIPERACILLIN-TAZOB 3.375GM 100 ML IV SCH ×4 (00:16→18:28)
[2022-08-07] MEDS: InsuLIN R (HUMAN) 100 UNITS in SODIUM CHL 0.9% 99 ML IV SCH ×3 (00:41→09:15)
[2022-08-07] MEDS: ACCU-CHEK COMFORT CURVE STRIP VI SCH ×16 (01:55→22:34)
[2022-08-07] MEDS: SODIUM BICARB 50ML SYR 100 ML in D5W/SOD CHL 0.45% 1,000 ML IV SCH (02:29)
[2022-08-07] MEDS: SODIUM CHLORIDE 0.9% 1,000 ML IV SCH ×4 (02:30→22:35)
[2022-08-07] MEDS ORDERED: SODIUM BICARBONATE 8.4 % INJ 50ML VIAL IV ONE ×2 (02:30→03:24)
[2022-08-07 02:38] LABS: Anion Gap 23 (5-15); BUN/Creatinine Ratio 9.4; Blood Urea Nitrogen 10 mg/dL (7-18); Calcium 8.1 mg/dL (8.5-10.1); Chloride 119 mmol/L (98-107); GFR African American 104 mL/min; GFR Non-African American 86 mL/min; Glucose 250 mg/dL (74-106); Potassium 3.1 mmol/L (3.5-5.1); Sodium 148 mmol/L (136-145)
[2022-08-07 02:47] LABS: Carbon Dioxide 6 mmol/L (21-32)
[2022-08-07] MEDS: SODIUM BICARB 50ML SYR 150 ML in D5W/SOD CHL 0.45% 1,000 ML IV SCH ×4 (03:43→21:16)
[2022-08-07 06:46] LABS: Calcium 8.1 mg/dL (8.5-10.1)
[2022-08-07 06:50] LABS: BUN/Creatinine Ratio 10.8; Bilirubin, Total 0.6 mg/dL (0.2-1.0); Total Protein 7.1 g/dL (6.4-8.2)
[2022-08-07 07:05] LABS: Basophils # (auto) 0 10 ^3/uL (0-0.2); Basophils % (auto) 0.3 % (0.0-2.0); Eosinophils # (auto) 0 10 ^3/uL (0-0.8); Hemoglobin 12.6 g/dL (13.5-17.5); Lymphocytes # (auto) 0.5 10 ^3/uL (0.4-5.4); Lymphocytes % (auto) 4.3 % (10.0-50.0); Mean Corpuscular Hemoglobin 30.6 pg (28.0-32.0); Mean Corpuscular Hgb Conc. 34.1 g/dL (32.0-36.0); Mean Corpuscular Volume 89.7 fL (80.0-100.0); Monocytes # (auto) 0.6 10 ^3/uL (0-1.3); Monocytes % (auto) 5.3 % (0.0-12.0); Neutrophils # (auto) 9.8 10 ^3/uL (1.6-8.6); Neutrophils % (auto) 90.1 % (37.0-80.0); Nucleated Red Blood Cells % 0.1 %; Red Blood Cells 4.12 10^6/uL (4.5-5.90); Red Cell Distribution Width 14.1 % (11.8-14.3); White Blood Cell 10.9 10^3/uL (4.4-10.8)
[2022-08-07 07:31] LABS: Potassium 2.4 mmol/L (3.5-5.1)
[2022-08-07] MEDS: POTASSIUM CHL 20MEQ/100ML 100 ML IV SCH ×4 (08:34→20:06)
[2022-08-07] MEDS: FOLIC ACID 1 MG, MULTIPLE VITAMIN 10 ML, MAGNESIUM SULF SDV 50% 8 MEQ, THIAMINE INJ 100... INJ SCH ×5 (16:08)
[2022-08-07] MEDS ORDERED: POTASSIUM CHL 20MEQ/100ML 100 ML IV SCH (19:00)
[2022-08-07] MEDS: INSULIN LANTUS (GLARGINE) 1 /0.01ml (100units/ml) SC SCH (22:38)
[2022-08-08] MEDS: PIPERACILLIN-TAZOB 3.375GM 100 ML IV SCH ×5 (00:05→20:52)
[2022-08-08] MEDS: ACCU-CHEK COMFORT CURVE STRIP VI SCH ×14 (00:13→23:44)
[2022-08-08] MEDS: SODIUM BICARB 50ML SYR 150 ML in D5W/SOD CHL 0.45% 1,000 ML IV SCH ×3 (04:44→23:50)
[2022-08-08 05:14] LABS: Albumin 2.7 g/dL (3.4-5.0); BUN/Creatinine Ratio 7.9; Calcium 8.1 mg/dL (8.5-10.1)
[2022-08-08 05:17] LABS: Bilirubin, Total 0.9 mg/dL (0.2-1.0); Total Protein 6.7 g/dL (6.4-8.2)
[2022-08-08 05:27] LABS: Potassium 1.5 mmol/L (3.5-5.1)
[2022-08-08] MEDS ORDERED: POTASSIUM CHL 20MEQ/100ML 100 ML IV ONE ×2 (05:41→05:45)
[2022-08-08] MEDS: SODIUM CHLORIDE 0.9% 1,000 ML IV SCH ×3 (05:49→17:00)
[2022-08-08] MEDS: POTASSIUM CHL 20MEQ/100ML 100 ML IV SCH ×3 (08:13→12:57)
[2022-08-08 09:17] LABS: Hepatitis B Surface Antibody Positive (Negative)
[2022-08-08 09:40] LABS: Hepatitis A Total Antibody Positive (Negative)
[2022-08-08] MEDS ORDERED: DEXTROSE (50%) 50ML SYRG IV PRN (10:45)
[2022-08-08 11:22] LABS: Hepatitis C Antibody Negative (Negative)
[2022-08-08] MEDS: InsuLIN REG 1unit/0.01ml Soln (100units/ml) SC SCH ×4 (11:59→23:46)
[2022-08-08] MEDS: FOLIC ACID 1 MG, MULTIPLE VITAMIN 10 ML, MAGNESIUM SULF SDV 50% 8 MEQ, THIAMINE INJ 100... INJ SCH ×5 (14:28)
[2022-08-08] MEDS: INSULIN LANTUS (GLARGINE) 1 /0.01ml (100units/ml) SC SCH (21:56)
[2022-08-09] MEDS: PIPERACILLIN-TAZOB 3.375GM 100 ML IV SCH ×4 (03:21→21:14)
[2022-08-09] MEDS: InsuLIN REG 1unit/0.01ml Soln (100units/ml) SC SCH ×5 (03:59→20:18)
[2022-08-09] MEDS: ACCU-CHEK COMFORT CURVE STRIP VI SCH ×5 (03:59→20:16)
[2022-08-09 05:00] VITALS: BP 122/85
[2022-08-09] MEDS: SODIUM BICARB 50ML SYR 150 ML in D5W/SOD CHL 0.45% 1,000 ML IV SCH ×2 (05:54→10:00)
[2022-08-09 06:39] LABS: Albumin 2.9 g/dL (3.4-5.0); Calcium 7.3 mg/dL (8.5-10.1)
[2022-08-09 06:44] LABS: BUN/Creatinine Ratio 5.4; Bilirubin, Total 0.9 mg/dL (0.2-1.0)
[2022-08-09] MEDS: POTASSIUM CHL 20MEQ/100ML 100 ML IV SCH ×3 (08:22→12:54)
[2022-08-09 09:00] VITALS: BP 121/85
[2022-08-09] MEDS: SODIUM CHLORIDE 0.9% 1,000 ML IV SCH ×2 (12:54→21:10)
[2022-08-09 13:00] VITALS: BP 130/84
[2022-08-09] MEDS: FOLIC ACID 1 MG, MULTIPLE VITAMIN 10 ML, MAGNESIUM SULF SDV 50% 8 MEQ, THIAMINE INJ 100... INJ SCH ×5 (13:40)
[2022-08-09 16:51] VITALS: BP 124/87
[2022-08-09] MEDS: LACTULOSE 20Gm/30ML SOLN PO SCH (18:30)
[2022-08-09] MEDS ORDERED: POTASSIUM CHLORIDE 80 MEQ, LIDOCAINE 1% (LOCAL ANESTH.) 6 ML in SODIUM CHL 0.9% 500 ML IV ONE (20:30)
[2022-08-09 22:00] VITALS: BP 131/91
[2022-08-09] MEDS: INSULIN LANTUS (GLARGINE) 1 /0.01ml (100units/ml) SC SCH (22:36)
[2022-08-09] MEDS: ZOLPIDEM TARTRATE 5 MG TAB PO PRN (22:37)
[2022-08-10] MEDS: InsuLIN REG 1unit/0.01ml Soln (100units/ml) SC SCH ×6 (01:01→21:02)
[2022-08-10] MEDS: LACTULOSE 20Gm/30ML SOLN PO SCH ×2 (01:06→05:43)
[2022-08-10] MEDS: PIPERACILLIN-TAZOB 3.375GM 100 ML IV SCH ×4 (03:16→21:04)
[2022-08-10] MEDS: SODIUM CHLORIDE 0.9% 1,000 ML IV SCH ×3 (03:50→17:10)
[2022-08-10] MEDS: ACCU-CHEK COMFORT CURVE STRIP VI SCH ×6 (04:00→20:00)
[2022-08-10 05:00] VITALS: BP 131/88
[2022-08-10 07:16] LABS: Albumin 2.7 g/dL (3.4-5.0); Calcium 8.5 mg/dL (8.5-10.1)
[2022-08-10 07:18] LABS: BUN/Creatinine Ratio 6.9
[2022-08-10 07:21] LABS: Bilirubin, Total 0.8 mg/dL (0.2-1.0); Total Protein 6.3 g/dL (6.4-8.2)
[2022-08-10 07:52] LABS: Potassium 2.7 mmol/L (3.5-5.1)
[2022-08-10] MEDS: POTASSIUM CHL 20MEQ/100ML 100 ML IV SCH ×2 (08:41→11:30)
[2022-08-10] MEDS ORDERED: POTASSIUM CHL 20 Meq TABLET PO ONE (08:45)
[2022-08-10 09:00] VITALS: BP 127/90
[2022-08-10] MEDS ORDERED: POTASSIUM EFFERVESENT TAB 25 MEQ PO ONE (10:45)
[2022-08-10 13:00] VITALS: BP 132/101
[2022-08-10] MEDS: FOLIC ACID 1 MG, MULTIPLE VITAMIN 10 ML, MAGNESIUM SULF SDV 50% 8 MEQ, THIAMINE INJ 100... INJ SCH ×5 (15:30)
[2022-08-10 17:00] VITALS: BP 127/90
[2022-08-10 20:00] VITALS: BP 127/92
[2022-08-10] MEDS: ZOLPIDEM TARTRATE 5 MG TAB PO PRN (21:09)
[2022-08-10] MEDS: INSULIN LANTUS (GLARGINE) 1 /0.01ml (100units/ml) SC SCH (21:27)
[2022-08-10 22:00] VITALS: BP 127/92
[2022-08-10] MEDS ORDERED: LACTULOSE 20Gm/30ML SOLN PO SCH (22:00)
[2022-08-11] MEDS: PIPERACILLIN-TAZOB 3.375GM 100 ML IV SCH ×2 (02:33→09:28)
[2022-08-11] MEDS: SODIUM CHLORIDE 0.9% 1,000 ML IV SCH ×3 (02:33→13:10)
[2022-08-11] MEDS: InsuLIN REG 1unit/0.01ml Soln (100units/ml) SC SCH ×4 (04:00→12:13)
[2022-08-11] MEDS: ACCU-CHEK COMFORT CURVE STRIP VI SCH ×4 (04:26→12:08)
[2022-08-11 05:00] VITALS: BP 129/93
[2022-08-11 06:19] LABS: Hematocrit 34.9 % (41.0-53.0); Mean Corpuscular Hemoglobin 30.2 pg (28.0-32.0); Mean Corpuscular Hgb Conc. 34.3 g/dL (32.0-36.0); Mean Corpuscular Volume 88.2 fL (80.0-100.0); Red Blood Cells 3.96 10^6/uL (4.5-5.90); Red Cell Distribution Width 13.7 % (11.8-14.3); White Blood Cell 5.1 10^3/uL (4.4-10.8)
[2022-08-11 06:42] LABS: Band Neutrophils % (manual) 0; Basophils % (manual) 0 (0.0-2.0); Blast Cells 0; Metamyelocytes % 0; Myelocytes % 0; Potassium 3.2 mmol/L (3.5-5.1); Promyelocytes % 0; Reactive Lymphocytes 0
[2022-08-11 06:54] LABS: Albumin 2.9 g/dL (3.4-5.0); BUN/Creatinine Ratio 14.6; Bilirubin, Total 0.6 mg/dL (0.2-1.0); Total Protein 5.7 g/dL (6.4-8.2)
[2022-08-11 08:00] VITALS: BP 131/95
[2022-08-11 09:00] VITALS: BP 113/95
[2022-08-11 11:15] LABS: Eosinophils % (manual) 1 (0-7); Lymphocytes % (manual) 16 (10.0-50.0); Monocytes % (manual) 14 (0-12)
[2022-08-11] MEDS: FOLIC ACID 1 MG, MULTIPLE VITAMIN 10 ML, MAGNESIUM SULF SDV 50% 8 MEQ, THIAMINE INJ 100... INJ SCH ×5 (12:00)
[2022-08-11] MEDS ORDERED: METR500T PO (12:40)
[2022-08-11] MEDS ORDERED: THIA100T5 PO (12:40)
[2022-08-11] MEDS ORDERED: FOLI1TAB6 PO (12:40)
[2022-08-11] MEDS ORDERED: LEVO500T31 PO (12:40)
[2022-08-11] MEDS ORDERED: CHL25C PO (12:40)
[2022-08-11] MEDS ORDERED: POTA1TAB4 PO (12:40)
== END 2022-08-11 14:45 | disposition home or self-care (01) | DRG 720 ==
LOC: EDBD 22:03 → ER 22:03 → TELE 08-06 04:21 → TELE-WESTW 08-08 20:20
PROVIDERS: ADMIT Nurse Practitioner; ATTEND Family Medicine
DX: A41.9 Sepsis, unspecified organism (principal); E10.10 Type 1 diabetes mellitus with ketoacidosis without coma; G93.41 Metabolic encephalopathy; N17.9 Acute kidney failure, unspecified; E72.20 Disorder of urea cycle metabolism, unspecified; K70.30 Alcoholic cirrhosis of liver without ascites; E87.6 Hypokalemia; Z20.822 Contact with and (suspected) exposure to COVID-19; Y90.9 Presence of alcohol in blood, level not specified; E86.0 Dehydration; K76.0 Fatty (change of) liver, not elsewhere classified; F10.229 Alcohol dependence with intoxication, unspecified; Z79.4 Long term (current) use of insulin; Z91.14 Patient's other noncompliance with medication regimen; Z91.199 Patient's noncompliance with other medical treatment and regimen due to unspecified reason; Z80.9 Family history of malignant neoplasm, unspecified; Z82.49 Family history of ischemic heart disease and other diseases of the circulatory system
CPT/HCPCS: 36415; 36600; 71045; 76705; 80048; 80053; 81001; 82010; 82140; 82805; 82962; 83036; 83605; 83690; 83735; 84100; 85007; 85025; 85027; 86704; 86706; 86708; 86803; 87040; 87086; 87340; 87426; 93005; 96361; 96365; 96372; 96375; 99291; G0378; J1815; J2001; J2405; J2543; J3480

== ENCOUNTER 2023-07-03 06:16 | Inpatient (IN) | payer MEDICAID ==
[~2023-07-03] VITALS: Ht 170.2 cm; Wt 63.5 kg
[~2023-07-03 06:16] MED LIST changes: +CHL25C PO; +FOLI-119 PO; -FOLI1TAB6 PO; +METR500T PO; +POTA1TAB4 PO; +THIA100T5 PO
[2023-07-03] MEDS ORDERED: ONDANSETRON HCL 4 MG/2 ML VIAL IV ONE (07:00)
[2023-07-03] MEDS ORDERED: LACTATED RINGER'S 2,000 ML IV ONE (07:00)
[2023-07-03 07:09] LABS: Basophils # (auto) 0 10 ^3/uL (0-0.2); Basophils % (auto) 0.1 % (0.0-2.0); Eosinophils # (auto) 0 10 ^3/uL (0-0.8); Hematocrit 50.5 % (41.0-53.0); Hemoglobin 16.4 g/dL (13.5-17.5); Lymphocytes # (auto) 0.6 10 ^3/uL (0.4-5.4); Lymphocytes % (auto) 6.2 % (10.0-50.0); Mean Corpuscular Hemoglobin 30.8 pg (28.0-32.0); Mean Corpuscular Hgb Conc. 32.5 g/dL (32.0-36.0); Mean Corpuscular Volume 94.9 fL (80.0-100.0); Monocytes # (auto) 0.4 10 ^3/uL (0-1.3); Monocytes % (auto) 4.2 % (0.0-12.0); Neutrophils # (auto) 8.9 10 ^3/uL (1.6-8.6); Neutrophils % (auto) 89.5 % (37.0-80.0); Nucleated Red Blood Cells % 0.1 %; Red Blood Cells 5.33 10^6/uL (4.5-5.90); Red Cell Distribution Width 13.7 % (11.8-14.3); White Blood Cell 9.9 10^3/uL (4.4-10.8)
[2023-07-03 07:33] LABS: Blood Alcohol < 3.0 mg/dL (<10)
[2023-07-03 07:34] LABS: Creatine Kinase IFCC 28 U/L (46-171)
[2023-07-03 07:40] LABS: INR 1.02 (0.9-1.15); Partial Thromboplastin Time 32.3 SEC (24.5-34.5); Prothrombin Time 10.7 sec (9.3-11.8)
[2023-07-03 08:00] VITALS: PULSE 114; RESP 20; O2SAT 98
[2023-07-03 08:48] LABS: Alanine Aminotransferase 28 U/L (7-40); Albumin 4.9 g/dL (3.2-4.8); Alkaline Phosphatase 134 U/L (46-116); Anion Gap 24.00001 (5-15); Aspartate Aminotransferase < 8 U/L (13-40); BUN/Creatinine Ratio 13.4 (10.0-20.0); Blood Urea Nitrogen 23 mg/dL (9-23); Calcium 9.4 mg/dL (8.5-10.1); Chloride 99 mmol/L (98-107); Potassium 4.8 mmol/L (3.5-5.1); Sodium 133 mmol/L (136-145); Total Protein 8.2 g/dL (5.7-8.2)
[2023-07-03 08:52] LABS: Carbon Dioxide < 10 mmol/L (20-30); Glucose 522 mg/dL (74-106)
[2023-07-03 08:53] LABS: Bilirubin, Total 0.4 mg/dL (0.2-1.0)
[2023-07-03] MEDS ORDERED: InsuLIN REG 1unit/0.01ml Soln (100units/ml) IV ONE (09:15)
[2023-07-03] MEDS ORDERED: DEXTROSE (50%) 50ML SYRG IV PRN (09:15)
[2023-07-03] MEDS ORDERED: SODIUM BICARBONATE 8.4 % INJ 50ML VIAL IV ONE (09:30)
[2023-07-03] MEDS ORDERED: ACETAMINOPHEN 325 MG TAB PO PRN (09:30)
[2023-07-03] MEDS ORDERED: MORPHINE SULFATE INJ 2 MG/ml SYRG IV PRN (09:30)
[2023-07-03] MEDS ORDERED: NITROGLYCERIN 0.4 MG SL TAB SL PRN (09:30)
[2023-07-03] MEDS ORDERED: SODIUM CHLORIDE 0.9% 1,000 ML IV SCH (09:30)
[2023-07-03] MEDS ORDERED: ONDANSETRON HCL 4 MG/2 ML VIAL IV PRN (09:30)
[2023-07-03] MEDS ORDERED: SODIUM CHLORIDE 0.9% 1,000 ML IV ONE (09:45)
[2023-07-03] MEDS: INSULIN DRIP 100 UNIT/100ML 100 ML IV SCH ×3 (10:17→16:35)
[2023-07-03 10:25] LABS: Triglycerides 535 mg/dL (< 150)
[2023-07-03 10:27] LABS: Cholesterol 332 mg/dL (< 200); HDL Cholesterol 67 mg/dL (40-59)
[2023-07-03] MEDS ORDERED: SODIUM BICARBONATE 8.4% INJ 50ML SYRINGE ONE (10:42)
[2023-07-03 11:24] LABS: Magnesium 2.6 mg/dL (1.6-2.6)
[2023-07-03] MEDS: ASPirin 81 mg TAB PO SCH (11:43)
[2023-07-03] MEDS: THIAMINE HCL 100 MG TAB PO SCH (11:44)
[2023-07-03] MEDS: ENOXAPARIN SOD 40 MG/0.4 ML SYRINGE SC SCH (11:44)
[2023-07-03] MEDS: ATORVASTATIN 20 MG TAB PO SCH (11:44)
[2023-07-03] MEDS: ACCU-CHEK COMFORT CURVE STRIP VI SCH ×7 (14:50→22:52)
[2023-07-03] MEDS: chlordiazePOXIDE HCL 25 MG CAP PO SCH ×2 (14:51→14:57)
[2023-07-03] MEDS: D5W/SOD CHL 0.45% 1,000 ML IV SCH (15:51)
[2023-07-03 15:54] LABS: Alanine Aminotransferase 15 U/L (7-40); Albumin 3.7 g/dL (3.2-4.8); Alkaline Phosphatase 87 U/L (46-116); Anion Gap 18 (5-15); Aspartate Aminotransferase < 8 U/L (13-40); BUN/Creatinine Ratio 14.8 (10.0-20.0); Bilirubin, Total 0.7 mg/dL (0.2-1.0); Blood Urea Nitrogen 16 mg/dL (9-23); Calcium 7.9 mg/dL (8.7-10.4); Carbon Dioxide 13 mmol/L (20-30); Potassium 2.9 mmol/L (3.5-5.1); Sodium 140 mmol/L (136-145); Total Protein 6.1 g/dL (5.7-8.2)
[2023-07-03 16:02] LABS: Chloride 109 mmol/L (98-107)
[2023-07-03 16:03] LABS: Glucose 195 mg/dL (74-106)
[2023-07-03] MEDS ORDERED: POTASSIUM EFFERVESENT TAB 25 MEQ PO ONE (16:15)
[2023-07-03] MEDS ORDERED: SODIUM BICARBONATE 50ML VIAL 75 ML in D5W 5% 1,000 ML IV ONE (16:30)
[2023-07-03] MEDS ORDERED: POTASSIUM CHL 20MEQ/100ML 100 ML IV ONE (16:30)
[2023-07-03] MEDS ORDERED: POTASSIUM CHLORIDE 40 MEQ, LIDOCAINE 1% (LOCAL ANESTH.) 4 ML in SODIUM CHL 0.9% 250 ML IV ONE (17:00)
[2023-07-03] MEDS ORDERED: SODIUM BICARBONATE IV ONE (17:30)
[2023-07-03] MEDS ORDERED: D5W 5% IV ONE (17:30)
[2023-07-03] MEDS ORDERED: POTASSIUM CHLORIDE IV ONE (17:30)
[2023-07-03 19:35] VITALS: PULSE 79; RESP 23; O2SAT 100
[2023-07-04] MEDS: ACCU-CHEK COMFORT CURVE STRIP VI SCH ×18 (00:06→23:55)
[2023-07-04 00:51] LABS: Anion Gap 12 (5-15); Carbon Dioxide 17 mmol/L (20-30); Chloride 110 mmol/L (98-107); Potassium 3.4 mmol/L (3.5-5.1); Sodium 139 mmol/L (136-145)
[2023-07-04 00:52] LABS: Calcium 8.3 mg/dL (8.7-10.4)
[2023-07-04 00:57] LABS: Blood Urea Nitrogen 12 mg/dL (9-23); Glucose 143 mg/dL (74-106)
[2023-07-04] MEDS: chlordiazePOXIDE HCL 25 MG CAP PO SCH (06:06)
[2023-07-04 06:55] LABS: Chloride 108 mmol/L (98-107); Potassium 3.1 mmol/L (3.5-5.1); Sodium 140 mmol/L (136-145)
[2023-07-04 06:56] LABS: Anion Gap 13 (5-15); Carbon Dioxide 19 mmol/L (20-30)
[2023-07-04 06:57] LABS: Calcium 8.7 mg/dL (8.5-10.1)
[2023-07-04 07:01] LABS: BUN/Creatinine Ratio 10.6 (10.0-20.0); Blood Urea Nitrogen 9 mg/dL (9-23); Glucose 176 mg/dL (74-106)
[2023-07-04 07:10] LABS: Basophils # (auto) 0 10 ^3/uL (0-0.2); Basophils % (auto) 0.1 % (0.0-2.0); Eosinophils # (auto) 0 10 ^3/uL (0-0.8); Eosinophils % (auto) 0.3 % (0.0-7.0); Hematocrit 36.4 % (41.0-53.0); Hemoglobin 12.4 g/dL (13.5-17.5); Lymphocytes # (auto) 0.7 10 ^3/uL (0.4-5.4); Mean Corpuscular Hemoglobin 30.3 pg (28.0-32.0); Mean Corpuscular Hgb Conc. 34.2 g/dL (32.0-36.0); Mean Corpuscular Volume 88.7 fL (80.0-100.0); Monocytes # (auto) 0.4 10 ^3/uL (0-1.3); Monocytes % (auto) 9.4 % (0.0-12.0); Neutrophils # (auto) 2.7 10 ^3/uL (1.6-8.6); Neutrophils % (auto) 71.2 % (37.0-80.0); Nucleated Red Blood Cells % 0.1 %; Red Cell Distribution Width 13.4 % (11.8-14.3); White Blood Cell 3.8 10^3/uL (4.4-10.8)
[2023-07-04] MEDS: INSULIN DRIP 100 UNIT/100ML 100 ML IV SCH (08:14)
[2023-07-04 08:51] VITALS: PULSE 69; RESP 18; O2SAT 99
[2023-07-04] MEDS ORDERED: DEXTROSE (50%) 50ML SYRG IV PRN ×2 (09:45→13:15)
[2023-07-04] MEDS: FOLIC ACID 1 MG TAB PO SCH (10:37)
[2023-07-04] MEDS: ATORVASTATIN 20 MG TAB PO SCH (10:37)
[2023-07-04] MEDS: ASPirin 81 mg TAB PO SCH (10:37)
[2023-07-04] MEDS: THIAMINE HCL 100 MG TAB PO SCH (10:37)
[2023-07-04] MEDS: ENOXAPARIN SOD 40 MG/0.4 ML SYRINGE SC SCH (10:37)
[2023-07-04] MEDS: D5W/SOD CHL 0.45% 1,000 ML IV SCH (11:15)
[2023-07-04 11:32] LABS: Urine Bacteria NONE SEEN /hpf (None Seen); Urine Blood Negative /uL (Negative); Urine Clarity Clear (Clear); Urine Protein, UAD Negative (Negative); Urine Specific Gravity 1.012 (1.001-1.035); Urine Urobilinogen Normal (Negative); Urine WBC 7 /hpf (0 - 3); Urine pH 6.5 (5.0-8.0)
[2023-07-04 11:33] LABS: Urine Color STRAW (Yellow)
[2023-07-04 11:35] LABS: Amphetamine Screen, Urine Neg (NEGATIVE); Barbiturate Scree,Urine Neg (NEGATIVE); Benzodiazephine Screen, Urine Pos (NEGATIVE); Cocaine Screen, Urine Neg (NEGATIVE)
[2023-07-04 11:36] LABS: Cannabinoid Screen, Urine Neg (NEGATIVE); Opiate Scree,Urine Neg (NEGATIVE); Phencyclidine Screen, Urine Neg (NEGATIVE)
[2023-07-04] MEDS ORDERED: InsuLIN REG 1unit/0.01ml Soln (100units/ml) SC SCH (12:00)
[2023-07-04 12:40] LABS: Chloride 103 mmol/L (98-107); Potassium 3.1 mmol/L (3.5-5.1); Sodium 136 mmol/L (136-145)
[2023-07-04 12:41] LABS: Anion Gap 16 (5-15); Calcium 8.5 mg/dL (8.5-10.1); Carbon Dioxide 17 mmol/L (20-30)
[2023-07-04 12:46] LABS: BUN/Creatinine Ratio 8.5 (10.0-20.0); Blood Urea Nitrogen 7 mg/dL (9-23)
[2023-07-04 12:51] LABS: Glucose 281 mg/dL (74-106)
[2023-07-04] MEDS ORDERED: POTASSIUM EFFERVESENT TAB 25 MEQ PO ONE (13:30)
[2023-07-04 14:32] VITALS: BP 118/90; PULSE 69; RESP 16; TEMP 97.7; O2SAT 100
[2023-07-04 14:38] VITALS: BP 118/90; PULSE 74; RESP 18; TEMP 97.9; O2SAT 99
[2023-07-04] MEDS: PANTOPRAZOLE 40 MG/10 ML VIAL INJ IV SCH (14:41)
[2023-07-04] MEDS: INSULIN LANTUS (GLARGINE) 1 /0.01ml (100units/ml) SC SCH ×2 (14:50→22:42)
[2023-07-04] MEDS: SODIUM CHLORIDE 0.9% 1,000 ML IV SCH ×2 (14:50→22:23)
[2023-07-04 16:44] VITALS: BP 126/86; PULSE 72; RESP 17; TEMP 98; O2SAT 98
[2023-07-04] MEDS: InsuLIN REG 1unit/0.01ml Soln (100units/ml) SC SCH ×2 (16:53→20:00)
[2023-07-04 18:26] LABS: Chloride 104 mmol/L (98-107); Sodium 135 mmol/L (136-145)
[2023-07-04 18:27] LABS: Anion Gap 8 (5-15); Carbon Dioxide 23 mmol/L (20-30)
[2023-07-04 18:28] LABS: Calcium 8.3 mg/dL (8.7-10.4)
[2023-07-04 18:32] LABS: Glucose 182 mg/dL (74-106)
[2023-07-04 18:37] LABS: BUN/Creatinine Ratio 6.4 (10.0-20.0); Blood Urea Nitrogen < 5 mg/dL (9-23)
[2023-07-04 20:00] VITALS: PULSE 79
[2023-07-04 22:00] VITALS: BP 127/84; PULSE 73; RESP 18; TEMP 98.1; O2SAT 94
[2023-07-05] MEDS: InsuLIN REG 1unit/0.01ml Soln (100units/ml) SC SCH ×6 (00:05→22:28)
[2023-07-05 00:55] LABS: Chloride 104 mmol/L (98-107); Potassium 2.9 mmol/L (3.5-5.1); Sodium 135 mmol/L (136-145)
[2023-07-05 00:56] LABS: Anion Gap 7 (5-15); Calcium 8.1 mg/dL (8.7-10.4); Carbon Dioxide 24 mmol/L (20-30)
[2023-07-05 01:01] LABS: BUN/Creatinine Ratio 7.2 (10.0-20.0); Blood Urea Nitrogen 6 mg/dL (9-23); Glucose 246 mg/dL (74-106)
[2023-07-05] MEDS: ACCU-CHEK COMFORT CURVE STRIP VI SCH ×7 (04:00→22:16)
[2023-07-05] MEDS: SODIUM CHLORIDE 0.9% 1,000 ML IV SCH (04:38)
[2023-07-05 05:00] VITALS: BP 132/91; PULSE 64; RESP 17; TEMP 97.7; O2SAT 99
[2023-07-05 06:01] LABS: Basophils # (auto) 0 10 ^3/uL (0-0.2); Basophils % (auto) 0.3 % (0.0-2.0); Eosinophils # (auto) 0 10 ^3/uL (0-0.8); Eosinophils % (auto) 1.4 % (0.0-7.0); Hematocrit 36.8 % (41.0-53.0); Hemoglobin 12.7 g/dL (13.5-17.5); Lymphocytes # (auto) 0.7 10 ^3/uL (0.4-5.4); Lymphocytes % (auto) 20.7 % (10.0-50.0); Mean Corpuscular Hemoglobin 30.3 pg (28.0-32.0); Mean Corpuscular Hgb Conc. 34.6 g/dL (32.0-36.0); Mean Corpuscular Volume 87.6 fL (80.0-100.0); Monocytes # (auto) 0.4 10 ^3/uL (0-1.3); Monocytes % (auto) 10.3 % (0.0-12.0); Neutrophils # (auto) 2.4 10 ^3/uL (1.6-8.6); Neutrophils % (auto) 67.3 % (37.0-80.0); Red Blood Cells 4.19 10^6/uL (4.5-5.90); Red Cell Distribution Width 13.1 % (11.8-14.3); White Blood Cell 3.5 10^3/uL (4.4-10.8)
[2023-07-05 06:06] LABS: Anion Gap 9 (5-15); Carbon Dioxide 24 mmol/L (20-30); Chloride 108 mmol/L (98-107); Potassium 2.5 mmol/L (3.5-5.1); Sodium 141 mmol/L (136-145)
[2023-07-05 06:07] LABS: Calcium 8.4 mg/dL (8.7-10.4)
[2023-07-05 06:12] LABS: BUN/Creatinine Ratio 11.1 (10.0-20.0); Blood Urea Nitrogen 7 mg/dL (9-23); Glucose 94 mg/dL (74-106)
[2023-07-05 08:00] VITALS: BP 129/90; PULSE 66; PULSE 69; RESP 20; TEMP 97.2; O2SAT 100
[2023-07-05] MEDS: PANTOPRAZOLE 40 MG/10 ML VIAL INJ IV SCH (08:30)
[2023-07-05] MEDS: ATORVASTATIN 20 MG TAB PO SCH (08:31)
[2023-07-05] MEDS: THIAMINE HCL 100 MG TAB PO SCH (08:31)
[2023-07-05] MEDS: FOLIC ACID 1 MG TAB PO SCH (08:31)
[2023-07-05] MEDS: ENOXAPARIN SOD 40 MG/0.4 ML SYRINGE SC SCH (08:32)
[2023-07-05] MEDS ORDERED: POTASSIUM EFFERVESENT TAB 25 MEQ PO ONE (09:15)
[2023-07-05] MEDS ORDERED: POTASSIUM CHLORIDE 20 MEQ, LIDOCAINE 1% (LOCAL ANESTH.) 2 ML in SODIUM CHL 0.9% 100 ML IV ONE (09:15)
[2023-07-05] MEDS: SOD CHL 0.9%/ KCL 40MEQ 1,000 ML IV SCH (10:11)
[2023-07-05] MEDS ORDERED: DEXTROSE (50%) 50ML SYRG IV PRN (10:45)
[2023-07-05 12:00] VITALS: BP 126/94; PULSE 74; RESP 20; TEMP 97.8; O2SAT 98
[2023-07-05 12:30] LABS: Chloride 107 mmol/L (98-107); Potassium 3.8 mmol/L (3.5-5.1); Sodium 140 mmol/L (136-145)
[2023-07-05 12:31] LABS: Anion Gap 6 (5-15); Calcium 8.9 mg/dL (8.5-10.1); Carbon Dioxide 27 mmol/L (20-30)
[2023-07-05 12:36] LABS: BUN/Creatinine Ratio 8.3 (10.0-20.0); Blood Urea Nitrogen 6 mg/dL (9-23)
[2023-07-05 12:42] LABS: Glucose 283 mg/dL (74-106)
[2023-07-05 16:00] VITALS: BP 135/102; PULSE 73; RESP 20; TEMP 97.7; O2SAT 100
[2023-07-05] MEDS ORDERED: INSU100I51 SC (16:19)
[2023-07-05 19:03] LABS: Chloride 107 mmol/L (98-107); Potassium 3.9 mmol/L (3.5-5.1); Sodium 138 mmol/L (136-145)
[2023-07-05 19:04] LABS: Anion Gap 6 (5-15); Calcium 8.9 mg/dL (8.7-10.4); Carbon Dioxide 25 mmol/L (20-30)
[2023-07-05 19:09] LABS: BUN/Creatinine Ratio 9.1 (10.0-20.0); Blood Urea Nitrogen 6 mg/dL (9-23); Glucose 200 mg/dL (74-106)
[2023-07-05 20:00] VITALS: PULSE 90; O2SAT 100
[2023-07-05 22:00] VITALS: BP 119/88; PULSE 75; RESP 21; TEMP 98.5; O2SAT 100
[2023-07-05] MEDS: INSULIN LANTUS (GLARGINE) 1 /0.01ml (100units/ml) SC SCH (22:27)
[2023-07-06 05:00] VITALS: BP 117/89; PULSE 77; RESP 19; TEMP 98.3; O2SAT 100
[2023-07-06] MEDS: SOD CHL 0.9%/ KCL 40MEQ 1,000 ML IV SCH ×2 (05:15→07:06)
[2023-07-06] MEDS: InsuLIN REG 1unit/0.01ml Soln (100units/ml) SC SCH ×2 (06:27→12:07)
[2023-07-06] MEDS: ACCU-CHEK COMFORT CURVE STRIP VI SCH ×2 (06:28→11:30)
[2023-07-06 06:47] LABS: Chloride 105 mmol/L (98-107); Potassium 3.1 mmol/L (3.5-5.1); Sodium 139 mmol/L (136-145)
[2023-07-06 06:48] LABS: Anion Gap 7 (5-15); Carbon Dioxide 27 mmol/L (20-30)
[2023-07-06 06:49] LABS: Calcium 8.9 mg/dL (8.7-10.4)
[2023-07-06 06:53] LABS: Blood Urea Nitrogen 7 mg/dL (9-23); Glucose 118 mg/dL (74-106)
[2023-07-06 08:00] VITALS: BP 117/86; PULSE 83; RESP 20; TEMP 98.1; O2SAT 100
[2023-07-06 08:04] VITALS: O2SAT 100
[2023-07-06] MEDS: ENOXAPARIN SOD 40 MG/0.4 ML SYRINGE SC SCH (09:19)
[2023-07-06] MEDS: FOLIC ACID 1 MG TAB PO SCH (09:19)
[2023-07-06] MEDS: PANTOPRAZOLE 40 MG/10 ML VIAL INJ IV SCH (09:19)
[2023-07-06] MEDS: THIAMINE HCL 100 MG TAB PO SCH (09:19)
[2023-07-06] MEDS: ATORVASTATIN 20 MG TAB PO SCH (09:19)
[2023-07-06 12:00] VITALS: BP 151/110; PULSE 81; RESP 20; TEMP 97.3; O2SAT 100
[2023-07-06] MEDS ORDERED: POTASSIUM EFFERVESENT TAB 25 MEQ PO SCH (12:30)
[2023-07-07] MEDS ORDERED: POTASSIUM EFFERVESENT TAB 25 MEQ PO SCH (10:00)
== END 2023-07-06 13:00 | disposition home or self-care (01) | DRG 420 ==
LOC: EDBD 06:16 → ER 06:16 → TELE 09:27 → TELE-EAST 07-04 14:20
PROVIDERS: ADMIT Nurse Practitioner Family; ATTEND Nurse Practitioner Acute Care
DX: E10.10 Type 1 diabetes mellitus with ketoacidosis without coma (principal); N17.9 Acute kidney failure, unspecified; R65.10 Systemic inflammatory response syndrome (SIRS) of non-infectious origin without acute organ dysfunction; F10.20 Alcohol dependence, uncomplicated; Z80.9 Family history of malignant neoplasm, unspecified; Z82.49 Family history of ischemic heart disease and other diseases of the circulatory system; Z91.148 Patient's other noncompliance with medication regimen for other reason; E87.6 Hypokalemia
CPT/HCPCS: 36415; 36600; 71045; 80048; 80053; 80061; 80307; 80320; 81001; 82010; 82550; 82805; 82962; 83036; 83735; 83880; 83930; 84100; 84132; 84443; 84484; 85025; 85610; 85730; 87081; 93005; 96361; 96374; 99291; C9113; G0378; J1815; J2001; J2405; J3480

== ENCOUNTER 2023-07-08 13:36 | Emergency (ER) | payer MEDICAID ==
[~2023-07-08] VITALS: Ht 170.2 cm; Wt 64.4 kg
[~2023-07-08 13:36] MED LIST changes: +INSU100I51 SC
[2023-07-08] MEDS ORDERED: BACDST PO (16:38)
[2023-07-08] MEDS ORDERED: NAPR-1334 PO (16:38)
[2023-07-08 18:24] VITALS: BP 139/100; PULSE 103; RESP 16; TEMP 99.8; O2SAT 98
== END 2023-07-08 18:41 | disposition home or self-care (01) ==
LOC: ER 13:36
DX: I82.612 Acute embolism and thrombosis of superficial veins of left upper extremity (principal); L03.114 Cellulitis of left upper limb; E11.9 Type 2 diabetes mellitus without complications; E78.5 Hyperlipidemia, unspecified; Z79.899 Other long term (current) drug therapy
CPT/HCPCS: 93971

== ENCOUNTER 2023-07-14 14:17 | Inpatient (IN) | payer MEDICAID ==
[~2023-07-14] VITALS: Ht 170.2 cm; Wt 64.5 kg
[~2023-07-14 14:17] MED LIST changes: +BACDST PO; +NAPR-1334 PO
[2023-07-14 19:23] LABS: Basophils # (auto) 0 10 ^3/uL (0-0.2); Basophils % (auto) 0.5 % (0.0-2.0); Eosinophils # (auto) 0.1 10 ^3/uL (0-0.8); Eosinophils % (auto) 1.2 % (0.0-7.0); Hematocrit 35.1 % (41.0-53.0); Lymphocytes # (auto) 0.9 10 ^3/uL (0.4-5.4); Lymphocytes % (auto) 10.4 % (10.0-50.0); Mean Corpuscular Hemoglobin 29.3 pg (28.0-32.0); Mean Corpuscular Hgb Conc. 34.2 g/dL (32.0-36.0); Mean Corpuscular Volume 85.7 fL (80.0-100.0); Monocytes # (auto) 0.6 10 ^3/uL (0-1.3); Monocytes % (auto) 7.3 % (0.0-12.0); Neutrophils # (auto) 6.7 10 ^3/uL (1.6-8.6); Neutrophils % (auto) 80.6 % (37.0-80.0); Nucleated Red Blood Cells % 0.1 %; Red Cell Distribution Width 13.7 % (11.8-14.3); White Blood Cell 8.3 10^3/uL (4.4-10.8)
[2023-07-14] MEDS ORDERED: PIPERACILLIN-TAZOB 3.375GM 100 ML IV ONE (19:30)
[2023-07-14] MEDS ORDERED: DOCUSATE SOD 100 MG CAP PO PRN (20:00)
[2023-07-14] MEDS ORDERED: MORPHINE SULFATE INJ 2 MG/ml SYRG IV PRN (20:00)
[2023-07-14] MEDS ORDERED: ONDANSETRON HCL 4 MG/2 ML VIAL IV PRN (20:00)
[2023-07-14] MEDS ORDERED: ACETAMINOPHEN 325 MG TAB PO PRN (20:00)
[2023-07-14 20:41] LABS: Chloride 95 mmol/L (98-107); Potassium 3.6 mmol/L (3.5-5.1); Sodium 131 mmol/L (136-145)
[2023-07-14 20:42] LABS: Anion Gap 8 (5-15); Carbon Dioxide 28 mmol/L (20-30)
[2023-07-14 20:43] LABS: Calcium 9.6 mg/dL (8.5-10.1)
[2023-07-14 20:47] LABS: BUN/Creatinine Ratio 11.1 (10.0-20.0); Blood Urea Nitrogen 10 mg/dL (9-23); Glucose 394 mg/dL (74-106)
[2023-07-14] MEDS ORDERED: DEXTROSE (50%) 50ML SYRG IV PRN (21:15)
[2023-07-14] MEDS ORDERED: AMPICILLIN & SULBACTAM SODIUM 3 GM in SODIUM CHL 0.9% 100 ML IV ONE (21:40)
[2023-07-15] MEDS: ACCU-CHEK COMFORT CURVE STRIP VI SCH ×5 (00:40→22:27)
[2023-07-15] MEDS: InsuLIN REG 1unit/0.01ml Soln (100units/ml) SC SCH ×5 (00:41→22:26)
[2023-07-15] MEDS: INSULIN LANTUS (GLARGINE) 1 /0.01ml (100units/ml) SC SCH ×2 (01:01→22:32)
[2023-07-15] MEDS: HYDROcodone-ACET 5/325MG TAB PO PRN (01:21)
[2023-07-15] MEDS: AMPICILLIN & SULBACTAM SODIUM 3 GM in SODIUM CHL 0.9% 100 ML IV SCH ×4 (01:32→22:27)
[2023-07-15 06:08] LABS: Alkaline Phosphatase 120 U/L (46-116); Anion Gap 8 (5-15); BUN/Creatinine Ratio 10.3 (10.0-20.0); Blood Urea Nitrogen 7 mg/dL (9-23); Calcium 9.4 mg/dL (8.5-10.1); Carbon Dioxide 28 mmol/L (20-30); Chloride 102 mmol/L (98-107); Potassium 3.2 mmol/L (3.5-5.1); Sodium 138 mmol/L (136-145)
[2023-07-15 06:09] LABS: Albumin 3.6 g/dL (3.2-4.8); Aspartate Aminotransferase 12 U/L (13-40); Bilirubin, Total 0.4 mg/dL (0.2-1.0); Total Protein 6.5 g/dL (5.7-8.2)
[2023-07-15 06:10] LABS: Basophils # (auto) 0 10 ^3/uL (0-0.2); Basophils % (auto) 0.4 % (0.0-2.0); Eosinophils # (auto) 0.1 10 ^3/uL (0-0.8); Eosinophils % (auto) 1.3 % (0.0-7.0); Hematocrit 31.6 % (41.0-53.0); Hemoglobin 11.2 g/dL (13.5-17.5); Lymphocytes # (auto) 1.1 10 ^3/uL (0.4-5.4); Lymphocytes % (auto) 13.9 % (10.0-50.0); Mean Corpuscular Hemoglobin 30.2 pg (28.0-32.0); Mean Corpuscular Hgb Conc. 35.5 g/dL (32.0-36.0); Mean Corpuscular Volume 85.2 fL (80.0-100.0); Monocytes # (auto) 0.6 10 ^3/uL (0-1.3); Monocytes % (auto) 8.3 % (0.0-12.0); Neutrophils # (auto) 5.8 10 ^3/uL (1.6-8.6); Neutrophils % (auto) 76.1 % (37.0-80.0); Red Blood Cells 3.72 10^6/uL (4.5-5.90); Red Cell Distribution Width 13.6 % (11.8-14.3); White Blood Cell 7.6 10^3/uL (4.4-10.8)
[2023-07-15 06:35] LABS: Alanine Aminotransferase < 9 U/L (7-40); Glucose 199 mg/dL (74-106)
[2023-07-15] MEDS: ENOXAPARIN SOD 40 MG/0.4 ML SYRINGE SC SCH (10:07)
[2023-07-15] MEDS: SOD CHL 0.9%/ KCL 40MEQ 1,000 ML IV SCH (15:15)
[2023-07-15 17:00] VITALS: BP 120/76; PULSE 60; RESP 16; TEMP 98.4; O2SAT 97
[2023-07-15 17:33] VITALS: PULSE 60; RESP 16; O2SAT 0
[2023-07-15 17:44] VITALS: BP 120/76; PULSE 16; RESP 60; TEMP 98.4; O2SAT 97
[2023-07-15 17:47] VITALS: BP 120/76; PULSE 60; RESP 16; TEMP 98.4
[2023-07-15] MEDS ORDERED: INSU100I51 SC (18:00)
[2023-07-15 20:00] VITALS: PULSE 66; RESP 18; O2SAT 98
[2023-07-15] MEDS: CLINDAMYCIN HCL 150 MG CAP PO SCH (21:52)
[2023-07-15 22:00] VITALS: BP 131/81; PULSE 66; RESP 18; TEMP 97.9; O2SAT 98
[2023-07-16] MEDS: SOD CHL 0.9%/ KCL 40MEQ 1,000 ML IV SCH ×3 (00:45→21:09)
[2023-07-16 05:00] VITALS: BP 113/76; PULSE 60; RESP 18; TEMP 98; O2SAT 100
[2023-07-16] MEDS: CLINDAMYCIN HCL 150 MG CAP PO SCH ×3 (05:45→21:08)
[2023-07-16] MEDS: InsuLIN REG 1unit/0.01ml Soln (100units/ml) SC SCH ×4 (05:48→21:30)
[2023-07-16] MEDS: AMPICILLIN & SULBACTAM SODIUM 3 GM in SODIUM CHL 0.9% 100 ML IV SCH ×4 (05:49→21:08)
[2023-07-16] MEDS: ACCU-CHEK COMFORT CURVE STRIP VI SCH ×4 (05:49→21:10)
[2023-07-16] MEDS: ENOXAPARIN SOD 40 MG/0.4 ML SYRINGE SC SCH (08:52)
[2023-07-16 09:00] VITALS: BP 116/78; PULSE 67; RESP 20; TEMP 97.5; O2SAT 100
[2023-07-16 13:00] VITALS: BP 120/78; PULSE 62; RESP 20; TEMP 97.5; O2SAT 99
[2023-07-16 17:00] VITALS: BP 114/76; PULSE 56; RESP 20; TEMP 98.5; O2SAT 99
[2023-07-16 18:36] LABS: Urine Bacteria NONE SEEN /hpf (None Seen); Urine Blood Negative /uL (Negative); Urine Clarity Clear (Clear); Urine Color Colorless (Yellow); Urine Protein, UAD Negative (Negative); Urine Specific Gravity 1.015 (1.001-1.035); Urine Urobilinogen Normal (Negative); Urine WBC <1 /hpf (0 - 3)
[2023-07-16 18:46] LABS: Amphetamine Screen, Urine Neg (NEGATIVE); Barbiturate Scree,Urine Neg (NEGATIVE); Benzodiazephine Screen, Urine Neg (NEGATIVE); Cannabinoid Screen, Urine Neg (NEGATIVE); Cocaine Screen, Urine Neg (NEGATIVE); Opiate Scree,Urine Neg (NEGATIVE); Phencyclidine Screen, Urine Neg (NEGATIVE)
[2023-07-16 20:00] VITALS: PULSE 56; RESP 18; O2SAT 100
[2023-07-16] MEDS: HYDROcodone-ACET 5/325MG TAB PO PRN (21:09)
[2023-07-16 22:00] VITALS: BP 113/76; PULSE 56; RESP 18; TEMP 98.2; O2SAT 100
[2023-07-16] MEDS ORDERED: INSULIN LANTUS (GLARGINE) 1 /0.01ml (100units/ml) SC SCH (22:00)
[2023-07-17] MEDS: AMPICILLIN & SULBACTAM SODIUM 3 GM in SODIUM CHL 0.9% 100 ML IV SCH ×2 (03:00→10:15)
[2023-07-17 05:00] VITALS: BP 109/74; PULSE 62; RESP 18; TEMP 97.8; O2SAT 100
[2023-07-17] MEDS: CLINDAMYCIN HCL 150 MG CAP PO SCH ×2 (06:01→13:48)
[2023-07-17] MEDS: SOD CHL 0.9%/ KCL 40MEQ 1,000 ML IV SCH (06:01)
[2023-07-17] MEDS: InsuLIN REG 1unit/0.01ml Soln (100units/ml) SC SCH ×3 (06:29→11:26)
[2023-07-17] MEDS: ACCU-CHEK COMFORT CURVE STRIP VI SCH ×2 (06:29→11:25)
[2023-07-17 09:04] VITALS: BP 116/73; PULSE 64; RESP 18; TEMP 98.6; O2SAT 100
[2023-07-17] MEDS: ENOXAPARIN SOD 40 MG/0.4 ML SYRINGE SC SCH (10:15)
[2023-07-17] MEDS ORDERED: AMOX875T3 PO (11:46)
[2023-07-17] MEDS ORDERED: CLIN150C18 PO (11:46)
[2023-07-17] MEDS ORDERED: SACC250C PO (11:46)
[2023-07-17 13:46] VITALS: BP 122/79; PULSE 57; RESP 16; TEMP 98; O2SAT 93
== END 2023-07-17 14:21 | disposition home or self-care (01) | DRG 197 ==
LOC: ER 14:17 → OVERFLOW 20:00 → EAST 07-15 16:30
PROVIDERS: ADMIT Nurse Practitioner Family; ATTEND Family Medicine
DX: I82.612 Acute embolism and thrombosis of superficial veins of left upper extremity (principal); E11.9 Type 2 diabetes mellitus without complications; L03.114 Cellulitis of left upper limb; E78.5 Hyperlipidemia, unspecified; I10 Essential (primary) hypertension
CPT/HCPCS: 36415; 80048; 80053; 80307; 81001; 82962; 83605; 85025; 87040; 87081; 93971; G0378; J1815; J2543

== ENCOUNTER 2023-11-30 21:15 | Inpatient (IN) | payer MEDICAID ==
[~2023-11-30] VITALS: Ht 170.2 cm; Wt 63.6 kg
[~2023-11-30 21:15] MED LIST changes: +AMOX875T3 PO; +CLIN150C18 PO; -NAPR-1334 PO; +NAPR-1335 PO; +SACC250C PO
[2023-11-30] MEDS: SODIUM CHLORIDE 0.9% 1,000 ML IV ONE (21:30)
[2023-11-30] MEDS ORDERED: DEXTROSE (50%) 50ML SYRG IV PRN ×2 (21:45→23:30)
[2023-11-30] MEDS: INSULIN LANTUS (GLARGINE) 1 /0.01ml (100units/ml) SC ONE (21:45)
[2023-11-30] MEDS: INSULIN DRIP 100 UNIT/100ML 100 ML IV SCH (21:45)
[2023-11-30 22:12] LABS: Basophils # (auto) 0 10 ^3/uL (0-0.2); Basophils % (auto) 0.2 % (0.0-2.0); Eosinophils # (auto) 0 10 ^3/uL (0-0.8); Hematocrit 44.5 % (41.0-53.0); Hemoglobin 14.6 g/dL (13.5-17.5); Lymphocytes # (auto) 0.2 10 ^3/uL (0.4-5.4); Lymphocytes % (auto) 1.1 % (10.0-50.0); Mean Corpuscular Hemoglobin 30.9 pg (28.0-32.0); Mean Corpuscular Hgb Conc. 32.7 g/dL (32.0-36.0); Mean Corpuscular Volume 94.4 fL (80.0-100.0); Monocytes % (auto) 4.6 % (0.0-12.0); Neutrophils % (auto) 94.1 % (37.0-80.0); Nucleated Red Blood Cells % 0.1 %; Red Blood Cells 4.72 10^6/uL (4.5-5.90); Red Cell Distribution Width 14.5 % (11.8-14.3); White Blood Cell 21.3 10^3/uL (4.4-10.8)
[2023-11-30 22:22] LABS: Alanine Aminotransferase 74 U/L (7-40); Albumin 4.9 g/dL (3.2-4.8); Alkaline Phosphatase 104 U/L (46-116); Anion Gap 26.00001 (5-15); Aspartate Aminotransferase 27 U/L (13-40); BUN/Creatinine Ratio 15.5 (10.0-20.0); Bilirubin, Total 0.9 mg/dL (0.2-1.0); Blood Urea Nitrogen 31 mg/dL (9-23); Calcium 8.6 mg/dL (8.7-10.4); Chloride 90 mmol/L (98-107); Magnesium 2.8 mg/dL (1.6-2.6); Phosphorus 5.4 mg/dL (2.4-5.1); Potassium 4.7 mmol/L (3.5-5.1); Sodium 126 mmol/L (136-145); Total Protein 8.1 g/dL (5.7-8.2)
[2023-11-30] MEDS: ACCU-CHEK COMFORT CURVE STRIP VI SCH (22:30)
[2023-11-30 22:31] LABS: Carbon Dioxide < 10 mmol/L (20-30); Glucose 617 mg/dL (74-106)
[2023-11-30] MEDS ORDERED: MORPHINE SULFATE INJ 2 MG/ml SYRG IV PRN (23:30)
[2023-11-30] MEDS ORDERED: NITROGLYCERIN 0.4 MG SL TAB SL PRN (23:30)
[2023-11-30] MEDS: SODIUM BICARB 8.4% 50Meq/50ml SYR Vial IV ONE (23:30)
[2023-11-30] MEDS: SODIUM CHLORIDE 0.9% 1,000 ML IV SCH (23:30)
[2023-11-30] MEDS: InsuLIN REG 1unit/0.01ml Soln (100units/ml) IV ONE (23:53)
[2023-12-01 00:43] VITALS: PULSE 124
[2023-12-01] MEDS: SODIUM CHLORIDE 0.9% 1,000 ML IV SCH (01:59)
[2023-12-01 03:50] LABS: Basophils # (auto) 0.1 10 ^3/uL (0-0.2); Basophils % (auto) 0.4 % (0.0-2.0); Eosinophils # (auto) 0 10 ^3/uL (0-0.8); Hematocrit 39.3 % (41.0-53.0); Hemoglobin 13.1 g/dL (13.5-17.5); Lymphocytes # (auto) 0.4 10 ^3/uL (0.4-5.4); Lymphocytes % (auto) 2.3 % (10.0-50.0); Mean Corpuscular Hemoglobin 30.9 pg (28.0-32.0); Mean Corpuscular Hgb Conc. 33.4 g/dL (32.0-36.0); Mean Corpuscular Volume 92.6 fL (80.0-100.0); Monocytes # (auto) 1.1 10 ^3/uL (0-1.3); Monocytes % (auto) 7.1 % (0.0-12.0); Neutrophils % (auto) 90.2 % (37.0-80.0); Red Blood Cells 4.25 10^6/uL (4.5-5.90); Red Cell Distribution Width 14.7 % (11.8-14.3); White Blood Cell 15.5 10^3/uL (4.4-10.8)
[2023-12-01 04:13] LABS: Alanine Aminotransferase 59 U/L (7-40); Albumin 4.4 g/dL (3.2-4.8); Alkaline Phosphatase 84 U/L (46-116); Anion Gap 20 (5-15); Aspartate Aminotransferase 16 U/L (13-40); BUN/Creatinine Ratio 19.6 (10.0-20.0); Blood Urea Nitrogen 27 mg/dL (9-23); Carbon Dioxide 12 mmol/L (20-30); Chloride 105 mmol/L (98-107); Sodium 137 mmol/L (136-145)
[2023-12-01 04:14] LABS: Bilirubin, Total 0.8 mg/dL (0.2-1.0); Total Protein 7.1 g/dL (5.7-8.2)
[2023-12-01 04:41] LABS: Glucose 200 mg/dL (74-106)
[2023-12-01] MEDS: POTASSIUM CHL 20MEQ/100ML 100 ML IV ONE ×2 (05:31→05:47)
[2023-12-01] MEDS: ONDANSETRON HCL 4 MG/2 ML VIAL IV PRN (06:30)
[2023-12-01 08:48] LABS: Urine Bacteria FEW /hpf (None Seen); Urine Blood TRACE /uL (Negative); Urine Budding Yeast OCCASIONAL /hpf (None Seen); Urine Clarity Clear (Clear); Urine Color Light-Yellow (Yellow); Urine Protein, UAD 1+ (Negative); Urine Specific Gravity 1.012 (1.001-1.035); Urine Urobilinogen Normal (Negative); Urine WBC 3 /hpf (0 - 3); Urine pH 5.5 (5.0-9.0)
[2023-12-01 08:55] LABS: Amphetamine Screen, Urine Neg (NEGATIVE)
[2023-12-01 08:56] LABS: Barbiturate Scree,Urine Neg (NEGATIVE); Benzodiazephine Screen, Urine Neg (NEGATIVE); Cannabinoid Screen, Urine Neg (NEGATIVE); Cocaine Screen, Urine Neg (NEGATIVE); Opiate Scree,Urine Neg (NEGATIVE); Phencyclidine Screen, Urine Neg (NEGATIVE)
[2023-12-01 09:53] VITALS: RESP 18; O2SAT 96
[2023-12-01 09:54] LABS: Alanine Aminotransferase 49 U/L (7-40); Albumin 4.2 g/dL (3.2-4.8); Alkaline Phosphatase 78 U/L (46-116); Anion Gap 19 (5-15); Aspartate Aminotransferase 16 U/L (13-40); BUN/Creatinine Ratio 20.9 (10.0-20.0); Blood Urea Nitrogen 23 mg/dL (9-23); Calcium 7.9 mg/dL (8.5-10.1); Carbon Dioxide 11 mmol/L (20-30); Chloride 111 mmol/L (98-107); Glucose 242 mg/dL (74-106); Potassium 3.7 mmol/L (3.5-5.1); Sodium 141 mmol/L (136-145)
[2023-12-01 09:55] LABS: Bilirubin, Total 0.6 mg/dL (0.2-1.0); Total Protein 6.5 g/dL (5.7-8.2)
[2023-12-01] MEDS: INSULIN LANTUS (GLARGINE) 1 /0.01ml (100units/ml) SC SCH (10:00)
[2023-12-01 10:42] LABS: Magnesium 2.3 mg/dL (1.6-2.6)
[2023-12-01 10:45] LABS: Basophils # (auto) 0 10 ^3/uL (0-0.2); Eosinophils # (auto) 0 10 ^3/uL (0-0.8); Hematocrit 39.8 % (41.0-53.0); Hemoglobin 12.9 g/dL (13.5-17.5); Lymphocytes # (auto) 0.3 10 ^3/uL (0.4-5.4); Lymphocytes % (auto) 2.4 % (10.0-50.0); Mean Corpuscular Hgb Conc. 32.5 g/dL (32.0-36.0); Mean Corpuscular Volume 95.5 fL (80.0-100.0); Monocytes # (auto) 0.7 10 ^3/uL (0-1.3); Monocytes % (auto) 5.7 % (0.0-12.0); Neutrophils # (auto) 10.7 10 ^3/uL (1.6-8.6); Neutrophils % (auto) 91.9 % (37.0-80.0); Red Blood Cells 4.16 10^6/uL (4.5-5.90); Red Cell Distribution Width 14.4 % (11.8-14.3); White Blood Cell 11.6 10^3/uL (4.4-10.8)
[2023-12-01] MEDS ORDERED: DEXTROSE (50%) 50ML SYRG IV PRN (10:45)
[2023-12-01] MEDS: INSULIN LANTUS (GLARGINE) 1 /0.01ml (100units/ml) SC ONE (10:47)
[2023-12-01] MEDS: D5W/SOD CHL 0.45% 1,000 ML IV ONE (11:34)
[2023-12-01] MEDS: POTASSIUM CHL 20MEQ/100ML 100 ML IV SCH (11:38)
[2023-12-01] MEDS: INSULIN DRIP 100 UNIT/100ML 100 ML IV SCH (11:38)
[2023-12-01] MEDS: ACCU-CHEK COMFORT CURVE STRIP VI SCH (12:07)
[2023-12-01 15:18] LABS: Alanine Aminotransferase 47 U/L (7-40); Alkaline Phosphatase 78 U/L (46-116); Anion Gap 18 (5-15); Aspartate Aminotransferase 16 U/L (13-40); BUN/Creatinine Ratio 16.4 (10.0-20.0); Blood Urea Nitrogen 18 mg/dL (9-23); Calcium 8.2 mg/dL (8.5-10.1); Carbon Dioxide 11 mmol/L (20-30); Chloride 112 mmol/L (98-107); Glucose 233 mg/dL (74-106); Potassium 2.9 mmol/L (3.5-5.1); Sodium 141 mmol/L (136-145)
[2023-12-01 15:19] LABS: Albumin 4.2 g/dL (3.2-4.8); Bilirubin, Total 0.6 mg/dL (0.2-1.0); Total Protein 6.6 g/dL (5.7-8.2)
[2023-12-01] MEDS ORDERED: POTASSIUM CHL 20MEQ/100ML 100 ML IV SCH (16:00)
[2023-12-01] MEDS: POTASSIUM CHLORIDE 80 MEQ, LIDOCAINE 1% (LOCAL ANESTH.) 6 ML in SODIUM CHL 0.9% 500 ML IV ONE (16:00)
[2023-12-01 19:30] VITALS: PULSE 100; RESP 15; O2SAT 100
[2023-12-01 19:42] LABS: Alanine Aminotransferase 49 U/L (7-40); Albumin 4.3 g/dL (3.2-4.8); Alkaline Phosphatase 78 U/L (46-116); Anion Gap 17 (5-15); Aspartate Aminotransferase 16 U/L (13-40); BUN/Creatinine Ratio 17.6 (10.0-20.0); Bilirubin, Total 0.6 mg/dL (0.2-1.0); Blood Urea Nitrogen 18 mg/dL (9-23); Calcium 8.3 mg/dL (8.5-10.1); Carbon Dioxide 12 mmol/L (20-30); Chloride 111 mmol/L (98-107); Glucose 176 mg/dL (74-106); Potassium 3.3 mmol/L (3.5-5.1); Sodium 140 mmol/L (136-145); Total Protein 6.8 g/dL (5.7-8.2)
[2023-12-02 05:14] LABS: Basophils # (auto) 0 10 ^3/uL (0-0.2); Eosinophils # (auto) 0 10 ^3/uL (0-0.8); Eosinophils % (auto) 0.1 % (0.0-7.0); Hematocrit 37.1 % (41.0-53.0); Lymphocytes # (auto) 0.4 10 ^3/uL (0.4-5.4); Lymphocytes % (auto) 5.2 % (10.0-50.0); Mean Corpuscular Hemoglobin 31.8 pg (28.0-32.0); Mean Corpuscular Hgb Conc. 35.2 g/dL (32.0-36.0); Mean Corpuscular Volume 90.4 fL (80.0-100.0); Monocytes # (auto) 0.4 10 ^3/uL (0-1.3); Monocytes % (auto) 5.1 % (0.0-12.0); Neutrophils # (auto) 7.1 10 ^3/uL (1.6-8.6); Neutrophils % (auto) 89.6 % (37.0-80.0); Red Cell Distribution Width 14.3 % (11.8-14.3)
[2023-12-02 05:31] LABS: Alanine Aminotransferase 42 U/L (7-40); Alkaline Phosphatase 74 U/L (46-116); Calcium 8.8 mg/dL (8.7-10.4); Carbon Dioxide 14 mmol/L (20-30); Chloride 110 mmol/L (98-107); Glucose 177 mg/dL (74-106); Magnesium 2.5 mg/dL (1.6-2.6); Potassium 3.4 mmol/L (3.5-5.1)
[2023-12-02 05:32] LABS: Albumin 4.1 g/dL (3.2-4.8); Anion Gap 16 (5-15); Aspartate Aminotransferase 17 U/L (13-40); BUN/Creatinine Ratio 15.2 (10.0-20.0); Bilirubin, Total 0.7 mg/dL (0.2-1.0); Blood Urea Nitrogen 14 mg/dL (9-23); Sodium 140 mmol/L (136-145); Total Protein 6.5 g/dL (5.7-8.2)
[2023-12-02] MEDS: D5W/SOD CHL 0.45% 1,000 ML IV SCH ×2 (07:00→08:44)
[2023-12-02] MEDS: POTASSIUM CHLORIDE 60 MEQ, LIDOCAINE 1% (LOCAL ANESTH.) 6 ML in SODIUM CHL 0.9% 500 ML IV ONE (07:00)
[2023-12-02 08:00] VITALS: PULSE 65; RESP 16; O2SAT 100
[2023-12-02] MEDS: INSULIN LANTUS (GLARGINE) 1 /0.01ml (100units/ml) SC SCH (11:17)
[2023-12-02 12:30] LABS: Chloride 113 mmol/L (98-107); Potassium 3.5 mmol/L (3.5-5.1); Sodium 139 mmol/L (136-145)
[2023-12-02 12:31] LABS: Anion Gap 9 (5-15); Calcium 8.7 mg/dL (8.5-10.1); Carbon Dioxide 17 mmol/L (20-30)
[2023-12-02 12:36] LABS: BUN/Creatinine Ratio 11.1 (10.0-20.0); Blood Urea Nitrogen 9 mg/dL (9-23); Glucose 184 mg/dL (74-106)
[2023-12-02] MEDS ORDERED: DEXTROSE (50%) 50ML SYRG IV PRN (13:15)
[2023-12-02] MEDS: POTASSIUM CHLORIDE 40 MEQ, LIDOCAINE 1% (LOCAL ANESTH.) 4 ML in SODIUM CHL 0.9% 250 ML IV ONE (15:09)
[2023-12-02 15:51] VITALS: BP 145/94; PULSE 63; RESP 16; TEMP 99.3; O2SAT 100
[2023-12-02] MEDS: ACCU-CHEK COMFORT CURVE STRIP VI SCH (16:10)
[2023-12-02] MEDS: InsuLIN REG 1unit/0.01ml Soln (100units/ml) SC SCH (16:10)
[2023-12-02 16:49] VITALS: BP 145/94; PULSE 66; RESP 20; TEMP 99.3; O2SAT 100
[2023-12-02 20:00] VITALS: PULSE 75; PULSE 99; RESP 20; O2SAT 97
[2023-12-02 21:00] VITALS: BP 149/92; PULSE 70; RESP 18; TEMP 98.5; O2SAT 99
[2023-12-03 01:00] VITALS: BP 135/79; PULSE 88; RESP 18; TEMP 98.2; O2SAT 100
[2023-12-03 05:00] VITALS: BP 140/92; PULSE 69; RESP 18; TEMP 97.9; O2SAT 100
[2023-12-03 05:21] LABS: Basophils # (auto) 0 10 ^3/uL (0-0.2); Basophils % (auto) 0.3 % (0.0-2.0); Eosinophils # (auto) 0 10 ^3/uL (0-0.8); Eosinophils % (auto) 0.3 % (0.0-7.0); Hematocrit 38.6 % (41.0-53.0); Hemoglobin 13.5 g/dL (13.5-17.5); Lymphocytes # (auto) 0.5 10 ^3/uL (0.4-5.4); Lymphocytes % (auto) 12.1 % (10.0-50.0); Mean Corpuscular Hemoglobin 31.1 pg (28.0-32.0); Monocytes # (auto) 0.4 10 ^3/uL (0-1.3); Monocytes % (auto) 10.7 % (0.0-12.0); Neutrophils # (auto) 3.1 10 ^3/uL (1.6-8.6); Neutrophils % (auto) 76.6 % (37.0-80.0); Nucleated Red Blood Cells % 0.7 %; Red Blood Cells 4.34 10^6/uL (4.5-5.90); Red Cell Distribution Width 14.6 % (11.8-14.3)
[2023-12-03 05:34] LABS: Alanine Aminotransferase 50 U/L (7-40); Alkaline Phosphatase 77 U/L (46-116); Anion Gap 12 (5-15); BUN/Creatinine Ratio 16.7 (10.0-20.0); Blood Urea Nitrogen 12 mg/dL (9-23); Calcium 9.9 mg/dL (8.7-10.4); Carbon Dioxide 21 mmol/L (20-30); Chloride 103 mmol/L (98-107); Glucose 229 mg/dL (74-106); Magnesium 2.3 mg/dL (1.6-2.6); Potassium 3.3 mmol/L (3.5-5.1); Sodium 136 mmol/L (136-145)
[2023-12-03 05:35] LABS: Albumin 4.1 g/dL (3.2-4.8); Aspartate Aminotransferase 44 U/L (13-40); Total Protein 6.5 g/dL (5.7-8.2)
[2023-12-03 07:30] VITALS: PULSE 67
[2023-12-03] MEDS: POTASSIUM EFFERVESENT TAB 25 MEQ PO ONE (08:59)
[2023-12-03 09:00] VITALS: BP 142/97; PULSE 95; RESP 20; TEMP 97.7; O2SAT 100
[2023-12-03] MEDS ORDERED: HYDROcodone-ACET 5/325MG TAB PO PRN (09:45)
[2023-12-03] MEDS: MAALOX PLUS or MAALOX 30 ML PO PRN (09:50)
[2023-12-03] MEDS: PANTOPRAZOLE 40 MG TAB PO ONE (09:50)
[2023-12-03 12:37] VITALS: TEMP 36.5
[2023-12-03 12:56] VITALS: BP 135/100; PULSE 86; RESP 20; O2SAT 100
[2023-12-03] MEDS ORDERED: PANT40T PO (13:23)
[2023-12-04] MEDS ORDERED: PANTOPRAZOLE 40 MG TAB PO SCH (06:00)
== END 2023-12-03 14:20 | disposition home or self-care (01) | DRG 420 ==
LOC: EDBD 21:15 → ER 21:15 → TELE 23:23 → TELE-WESTW 12-02 15:44
PROVIDERS: ADMIT Internal Medicine; ATTEND Internal Medicine
DX: E11.10 Type 2 diabetes mellitus with ketoacidosis without coma (principal); N17.0 Acute kidney failure with tubular necrosis; R65.10 Systemic inflammatory response syndrome (SIRS) of non-infectious origin without acute organ dysfunction; E83.39 Other disorders of phosphorus metabolism; E83.41 Hypermagnesemia; E87.6 Hypokalemia; E78.2 Mixed hyperlipidemia; Z79.4 Long term (current) use of insulin
CPT/HCPCS: 36415; 36600; 71045; 80048; 80053; 80061; 80307; 81001; 82010; 82805; 82962; 83036; 83735; 83880; 83930; 84100; 84443; 84484; 85025; 96361; 96372; 96374; 96375; 99291; G0378; J1815; J2001; J2405; J3480

== ENCOUNTER 2024-03-08 08:53 | Inpatient (IN) | payer MEDICAID ==
[~2024-03-08] VITALS: Ht 161.5 cm; Wt 64.5 kg
[~2024-03-08 08:53] MED LIST changes: -AMOX875T3 PO; -BACDST PO; -CLIN150C18 PO; -FOLI-119 PO; -INSU100I4 SC; -LEVO500T31 PO; -METR500T PO; -NAPR-1335 PO; +PANT40T PO; -POTA-180 PO; -POTA1TAB4 PO; -SACC250C PO; -THIA100T10 PO; -THIA100T5 PO
[2024-03-08 09:20] VITALS: PULSE 115; RESP 24; O2SAT 99
[2024-03-08 09:30] LABS: Basophils # (auto) 0 10 ^3/uL (0-0.2); Basophils % (auto) 0.3 % (0.0-2.0); Eosinophils # (auto) 0 10 ^3/uL (0-0.8); Hematocrit 51.1 % (41.0-53.0); Hemoglobin 17.3 g/dL (13.5-17.5); Lymphocytes # (auto) 0.4 10 ^3/uL (0.4-5.4); Lymphocytes % (auto) 3.1 % (10.0-50.0); Mean Corpuscular Hgb Conc. 33.9 g/dL (32.0-36.0); Mean Corpuscular Volume 91.5 fL (80.0-100.0); Monocytes # (auto) 0.6 10 ^3/uL (0-1.3); Monocytes % (auto) 4.3 % (0.0-12.0); Neutrophils # (auto) 13.1 10 ^3/uL (1.6-8.6); Neutrophils % (auto) 92.3 % (37.0-80.0); Nucleated Red Blood Cells % 0.5 %; Platelet Count (auto) 188 10^3/uL (140-450); Red Blood Cells 5.58 10^6/uL (4.5-5.90); Red Cell Distribution Width 13.7 % (11.8-14.3); White Blood Cell 14.2 10^3/uL (4.4-10.8)
[2024-03-08] MEDS: SODIUM CHLORIDE 0.9% 2,000 ML IV ONE (09:34)
[2024-03-08 09:45] LABS: Alanine Aminotransferase 28 U/L (7-40); Alkaline Phosphatase 134 U/L (46-116); Anion Gap 21.00001 (5-15); Aspartate Aminotransferase 14 U/L (13-40); BUN/Creatinine Ratio 14.6 (10.0-20.0); Blood Urea Nitrogen 28 mg/dL (9-23); Calcium 9.6 mg/dL (8.7-10.4); Chloride 101 mmol/L (98-107); Potassium 4.7 mmol/L (3.5-5.1); Sodium 132 mmol/L (136-145)
[2024-03-08 09:46] LABS: Bilirubin, Total 0.5 mg/dL (0.2-1.0); Total Protein 8.3 g/dL (5.7-8.2)
[2024-03-08 09:52] LABS: Carbon Dioxide < 10 mmol/L (20-30); Glucose 473 mg/dL (74-106)
[2024-03-08 10:18] LABS: Lipase 563 U/L (12-53)
[2024-03-08] MEDS: SODIUM CHLORIDE 0.9% 1,000 ML IVB ONE (11:09)
[2024-03-08] MEDS: ONDANSETRON HCL 4 MG/2 ML VIAL IV ONE (11:09)
[2024-03-08 11:45] LABS: Urine Bacteria None Seen /hpf (None Seen)
[2024-03-08] MEDS: InsuLIN REG 1unit/0.01ml Soln (100units/ml) IV ONE (12:02)
[2024-03-08 12:12] LABS: Urine Blood TRACE /uL (Negative); Urine Clarity Clear (Clear); Urine Color Light-Yellow (Yellow); Urine Protein, UAD 1+ (Negative); Urine Specific Gravity 1.013 (1.001-1.035); Urine Urobilinogen Normal (Negative); Urine WBC 1 /hpf (0 - 3); Urine pH 5.5 (5.0-9.0)
[2024-03-08] MEDS ORDERED: DEXTROSE (50%) 50ML SYRG IV PRN ×2 (12:45→16:30)
[2024-03-08] MEDS: INSULIN LANTUS (GLARGINE) 1 /0.01ml (100units/ml) SC ONE ×2 (12:47→17:37)
[2024-03-08] MEDS: SODIUM CHLORIDE 0.9% 1,000 ML IV SCH ×5 (12:55→22:29)
[2024-03-08] MEDS: INSULIN DRIP 100 UNIT/100ML 100 ML IV SCH (13:05)
[2024-03-08 13:42] LABS: Anion Gap 18.00001 (5-15); Potassium 3.3 mmol/L (3.5-5.1); Sodium 145 mmol/L (136-145)
[2024-03-08 13:43] LABS: Calcium 7.8 mg/dL (8.7-10.4)
[2024-03-08 13:48] LABS: BUN/Creatinine Ratio 17.1 (10.0-20.0); Blood Urea Nitrogen 20 mg/dL (9-23)
[2024-03-08 13:50] LABS: Phosphorus 2.2 mg/dL (2.4-5.1)
[2024-03-08 13:53] LABS: Chloride 117 mmol/L (98-107)
[2024-03-08 13:54] LABS: Carbon Dioxide < 10 mmol/L (20-30); Glucose 173 mg/dL (74-106)
[2024-03-08] MEDS: ACCU-CHEK COMFORT CURVE STRIP VI SCH ×2 (13:56→16:30)
[2024-03-08] MEDS: POTASSIUM EFFERVESENT TAB 25 MEQ PO ONE (14:21)
[2024-03-08] MEDS ORDERED: ONDANSETRON HCL 4 MG/2 ML VIAL IV PRN (16:30)
[2024-03-08] MEDS ORDERED: MORPHINE SULFATE INJ 2 MG/ml SYRG IV PRN (16:30)
[2024-03-08] MEDS ORDERED: DOCUSATE SOD 100 MG CAP PO PRN (16:30)
[2024-03-08] MEDS ORDERED: NITROGLYCERIN 0.4 MG SL TAB SL PRN (16:30)
[2024-03-08] MEDS: CALCIUM GLUC 1,000mg/50ml-NS 50 ML IV ONE (17:45)
[2024-03-08] MEDS: PANTOPRAZOLE 40 MG/10 ML VIAL INJ IV ONE (17:57)
[2024-03-08] MEDS: PIPERACILLIN-TAZOB 3.375GM 100 ML IV ONE (17:58)
[2024-03-08] MEDS ORDERED: SODIUM CHLORIDE 0.9% 1,000 ML IV SCH (18:45)
[2024-03-08 19:30] VITALS: PULSE 108; PULSE 115; RESP 18; RESP 24; O2SAT 100; O2SAT 99
[2024-03-08] MEDS: POTASSIUM PHOSPHATE 44 MEQ in D5W 5% 250 ML IV ONE (21:02)
[2024-03-08 21:07] LABS: Chloride 118 mmol/L (98-107); Potassium 3.3 mmol/L (3.5-5.1); Sodium 145 mmol/L (136-145)
[2024-03-08 21:08] LABS: Anion Gap 17.00001 (5-15); Calcium 8.8 mg/dL (8.7-10.4)
[2024-03-08 21:13] LABS: BUN/Creatinine Ratio 12.8 (10.0-20.0); Blood Urea Nitrogen 14 mg/dL (9-23); Glucose 155 mg/dL (74-106)
[2024-03-08 21:19] LABS: Carbon Dioxide < 10 mmol/L (20-30)
[2024-03-08 22:34] LABS: Chloride 117 mmol/L (98-107); Potassium 3.5 mmol/L (3.5-5.1); Sodium 143 mmol/L (136-145)
[2024-03-08 22:35] LABS: Anion Gap 16.00001 (5-15); Calcium 8.8 mg/dL (8.7-10.4)
[2024-03-08 22:40] LABS: BUN/Creatinine Ratio 10.7 (10.0-20.0); Blood Urea Nitrogen 12 mg/dL (9-23); Glucose 209 mg/dL (74-106)
[2024-03-08 22:45] LABS: Carbon Dioxide < 10 mmol/L (20-30)
[2024-03-09] VITALS: PULSE 90; RESP 18; O2SAT 98
[2024-03-09 00:05] LABS: Base Excess -16.3 mmol/L (-2.0-3.0)
[2024-03-09 01:08] LABS: Chloride 121 mmol/L (98-107); Potassium 2.8 mmol/L (3.5-5.1); Sodium 145 mmol/L (136-145)
[2024-03-09 01:09] LABS: Anion Gap 14.00001 (5-15)
[2024-03-09 01:10] LABS: Calcium 8.6 mg/dL (8.7-10.4)
[2024-03-09 01:15] LABS: Blood Urea Nitrogen 11 mg/dL (9-23); Glucose 182 mg/dL (74-106)
[2024-03-09 01:16] LABS: Carbon Dioxide < 10 mmol/L (20-30)
[2024-03-09 01:55] LABS: BUN/Creatinine Ratio 10.4 (10.0-20.0)
[2024-03-09] MEDS: PIPERACILLIN-TAZOB 3.375GM 100 ML IV SCH (02:16)
[2024-03-09 06:27] LABS: Alanine Aminotransferase 15 U/L (7-40); Alkaline Phosphatase 89 U/L (46-116); Anion Gap 14 (5-15); Aspartate Aminotransferase 10 U/L (13-40); BUN/Creatinine Ratio 10.5 (10.0-20.0); Blood Urea Nitrogen 10 mg/dL (9-23); Calcium 8.7 mg/dL (8.7-10.4); Carbon Dioxide 12 mmol/L (20-30); Chloride 121 mmol/L (98-107); Glucose 140 mg/dL (74-106); Potassium 2.7 mmol/L (3.5-5.1); Sodium 147 mmol/L (136-145)
[2024-03-09 06:28] LABS: Bilirubin, Total 0.8 mg/dL (0.2-1.0); Total Protein 6.5 g/dL (5.7-8.2)
[2024-03-09 07:20] VITALS: PULSE 90; RESP 18; O2SAT 100
[2024-03-09 08:48] LABS: Basophils # (auto) 0 10 ^3/uL (0-0.2); Basophils % (auto) 0.3 % (0.0-2.0); Eosinophils # (auto) 0 10 ^3/uL (0-0.8); Eosinophils % (auto) 0.1 % (0.0-7.0); Hematocrit 39.2 % (41.0-53.0); Hemoglobin 13.9 g/dL (13.5-17.5); Lymphocytes # (auto) 0.5 10 ^3/uL (0.4-5.4); Lymphocytes % (auto) 8.2 % (10.0-50.0); Mean Corpuscular Hemoglobin 30.9 pg (28.0-32.0); Mean Corpuscular Hgb Conc. 35.3 g/dL (32.0-36.0); Mean Corpuscular Volume 87.4 fL (80.0-100.0); Monocytes # (auto) 0.5 10 ^3/uL (0-1.3); Monocytes % (auto) 8.2 % (0.0-12.0); Neutrophils # (auto) 4.8 10 ^3/uL (1.6-8.6); Neutrophils % (auto) 83.2 % (37.0-80.0); Nucleated Red Blood Cells % 0.1 %; Platelet Count (auto) 107 10^3/uL (140-450); Red Blood Cells 4.49 10^6/uL (4.5-5.90); White Blood Cell 5.7 10^3/uL (4.4-10.8)
[2024-03-09 09:06] LABS: Chloride 120 mmol/L (98-107); Sodium 148 mmol/L (136-145)
[2024-03-09 09:07] LABS: Anion Gap 15 (5-15); Calcium 9.2 mg/dL (8.7-10.4); Carbon Dioxide 13 mmol/L (20-30)
[2024-03-09 09:12] LABS: BUN/Creatinine Ratio 11.1 (10.0-20.0); Blood Urea Nitrogen 10 mg/dL (9-23); Glucose 120 mg/dL (74-106)
[2024-03-09 09:15] LABS: Potassium 2.5 mmol/L (3.5-5.1)
[2024-03-09 09:31] LABS: Platelet Estimate Decreased
[2024-03-09] MEDS: PANTOPRAZOLE 40 MG/10 ML VIAL INJ IV SCH (09:43)
[2024-03-09] MEDS: INSULIN LANTUS (GLARGINE) 1 /0.01ml (100units/ml) SC SCH (09:47)
[2024-03-09] MEDS ORDERED: INSULIN LANTUS (GLARGINE) 1 /0.01ml (100units/ml) SC SCH (10:00)
[2024-03-09] MEDS: POTASSIUM CHL 20MEQ/100ML 100 ML IV SCH (10:32)
[2024-03-09 13:39] LABS: Chloride 118 mmol/L (98-107); Potassium 2.8 mmol/L (3.5-5.1); Sodium 148 mmol/L (136-145)
[2024-03-09 13:40] LABS: Anion Gap 20.00001 (5-15)
[2024-03-09 13:41] LABS: Calcium 9.1 mg/dL (8.7-10.4)
[2024-03-09 13:45] LABS: BUN/Creatinine Ratio 10.2 (10.0-20.0); Blood Urea Nitrogen 10 mg/dL (9-23); Glucose 168 mg/dL (74-106)
[2024-03-09 14:01] LABS: Carbon Dioxide < 10 mmol/L (20-30)
[2024-03-09] MEDS: D5W/SOD CHL 0.45%/KCL 40MEQ 1,000 ML IV ONE (15:29)
[2024-03-09] MEDS: POTASSIUM CHLORIDE 40 MEQ, LIDOCAINE 1% (LOCAL ANESTH.) 4 ML in SODIUM CHL 0.9% 250 ML IV ONE (17:15)
[2024-03-09 18:31] LABS: Chloride 118 mmol/L (98-107); Potassium 2.9 mmol/L (3.5-5.1); Sodium 144 mmol/L (136-145)
[2024-03-09 18:32] LABS: Anion Gap 15 (5-15); Carbon Dioxide 11 mmol/L (20-30)
[2024-03-09 18:33] LABS: Calcium 8.8 mg/dL (8.7-10.4)
[2024-03-09 18:38] LABS: BUN/Creatinine Ratio 10.7 (10.0-20.0); Blood Urea Nitrogen 9 mg/dL (9-23); Glucose 153 mg/dL (74-106)
[2024-03-09 19:30] VITALS: PULSE 73; RESP 20; O2SAT 100
[2024-03-10 01:05] VITALS: PULSE 87; RESP 12; O2SAT 99
[2024-03-10] MEDS ORDERED: DEXTROSE (50%) 50ML SYRG IV PRN ×2 (03:00→13:45)
[2024-03-10] MEDS: ACCU-CHEK COMFORT CURVE STRIP VI SCH ×2 (03:40→17:00)
[2024-03-10] MEDS: InsuLIN REG 1unit/0.01ml Soln (100units/ml) SC SCH ×3 (03:55→17:33)
[2024-03-10 05:21] LABS: Chloride 109 mmol/L (98-107); Sodium 138 mmol/L (136-145)
[2024-03-10 05:22] LABS: Anion Gap 15 (5-15); Calcium 8.8 mg/dL (8.7-10.4); Carbon Dioxide 14 mmol/L (20-30)
[2024-03-10 05:27] LABS: BUN/Creatinine Ratio 8.1 (10.0-20.0); Blood Urea Nitrogen 6 mg/dL (9-23); Glucose 189 mg/dL (74-106)
[2024-03-10 05:28] LABS: Magnesium 1.7 mg/dL (1.6-2.6)
[2024-03-10 05:29] LABS: Phosphorus 1.7 mg/dL (2.4-5.1)
[2024-03-10 05:34] LABS: Potassium 2.5 mmol/L (3.5-5.1)
[2024-03-10] MEDS: POTASSIUM CHL 20 Meq TABLET PO ONE (06:22)
[2024-03-10] MEDS: MAGNESIUM SULFATE 1GM/100ML 100 ML IV ONE (09:40)
[2024-03-10] MEDS: POTASSIUM CHLORIDE 40 MEQ, LIDOCAINE 1% (LOCAL ANESTH.) 4 ML in SODIUM CHL 0.9% 250 ML IV ONE (10:04)
[2024-03-10 12:14] VITALS: BP 120/80; PULSE 79; PULSE 81; RESP 16; RESP 18; TEMP 98; O2SAT 99
[2024-03-10 12:30] VITALS: BP 120/80; PULSE 79; RESP 18; TEMP 98; O2SAT 99
[2024-03-10 13:02] LABS: Amphetamine Screen, Urine Neg (NEGATIVE)
[2024-03-10 13:03] LABS: Barbiturate Scree,Urine Neg (NEGATIVE); Benzodiazephine Screen, Urine Neg (NEGATIVE); Cannabinoid Screen, Urine Neg (NEGATIVE); Cocaine Screen, Urine Neg (NEGATIVE); Opiate Scree,Urine Neg (NEGATIVE); Phencyclidine Screen, Urine Neg (NEGATIVE)
[2024-03-10 16:50] VITALS: BP_SYST 129; BP_SYST 137; BP_DIAS 72; BP_DIAS 79; PULSE 109; PULSE 92; RESP 16; RESP 18; TEMP 98.1; TEMP 98.2; O2SAT 95; O2SAT 99
[2024-03-10 18:00] VITALS: BP 120/80; PULSE 79; RESP 18; TEMP 98; O2SAT 99
[2024-03-29] MEDS ORDERED: INSLANTI SC (10:19)
[2024-03-29] MEDS ORDERED: INSLISPI SC (10:20)
== END 2024-03-10 18:36 | disposition home or self-care (01) | DRG 420 ==
LOC: EDBD 08:53 → ER 08:53 → OVERFLOW 16:25 → TELE-CENTR 16:55
PROVIDERS: ADMIT Nurse Practitioner Family; ATTEND Nurse Practitioner Acute Care
DX: E11.10 Type 2 diabetes mellitus with ketoacidosis without coma (principal); N17.0 Acute kidney failure with tubular necrosis; R65.10 Systemic inflammatory response syndrome (SIRS) of non-infectious origin without acute organ dysfunction; E78.5 Hyperlipidemia, unspecified; E86.0 Dehydration; N39.0 Urinary tract infection, site not specified; E87.6 Hypokalemia; E11.21 Type 2 diabetes mellitus with diabetic nephropathy; F10.20 Alcohol dependence, uncomplicated; Z91.199 Patient's noncompliance with other medical treatment and regimen due to unspecified reason; Z79.4 Long term (current) use of insulin; Z79.899 Other long term (current) drug therapy; Y90.9 Presence of alcohol in blood, level not specified
CPT/HCPCS: 36415; 36600; 71046; 76705; 80048; 80053; 80307; 81001; 82010; 82805; 82962; 83690; 83735; 83930; 84100; 85025; 87040; 87340; 93005; 99291; G0378; J1815; J2001; J2405; J2470; J2543; J3480; J7060

== ENCOUNTER 2024-06-08 11:15 | Inpatient (IN) | payer MEDICAID ==
[~2024-06-08] VITALS: Ht 170.2 cm; Wt 67.5 kg
[~2024-06-08 11:15] MED LIST changes: -CHL25C PO; +INSLANTI SC; +INSLISPI SC
[2024-06-08] MEDS: SODIUM CHLORIDE 0.9% 500 ML IV ONE (11:45)
--- NOTE | 2024-06-08 12:00 | ED.PDOC ---
History of Present Illness HPI Comments This is a 34-year-old male who comes in with chief complaint of vomiting as well as some abdominal pain. The patient states that he has been on a drinking binge for three days and stopped on Friday. The patient now states that he is having a lot of vomiting and also noticed some blood in the vomitus. The paramedics arrived on scene and states that they thought they saw coffee-ground material. The patient was complaining of some diffuse abdominal pain. He states that the hematemesis started approximately 2 hours ago. Chief Complaint: Withdrawal Time Seen by MD: 11:33 Primary Care Provider: ESTRADA Reviewed Notes: Nurses Notes, Lamination Machine Operator Notes, Medications, Allergies Allergies: Coded Allergies: NO KNOWN ALLERGIES (Unverified , 06/03/22) Home Meds Active Scripts Insulin Lispro (Human) (Humalog) 100 Unit/Ml Inj, 10 UNIT SC TID, #1000 UNITS Prov:VIJAY FELIX MD 03/29/24 Insulin Glargine (Lantus) 100 Unit/Ml Inj, 25 UNIT SC DAILY, #1000 UNITS Prov:VIJAY FELIX MD 03/29/24 Pantoprazole Sodium Sesquihydr (Pantoprazole Sodium) 40 Mg Tab, 40 MG PO DAILY@0600 for 30 Days, #30 TAB Prov:RIZWANA RODRIGUEZ RESIDENT 12/03/23 Insulin Aspart (Insulin Aspart Flexpen) 100 Unit/Ml Inj, 100 UNIT SC ACHS for 60 Days, #3 INJ Blood sugar 150 to 250: 2 units Blood sugar 251 to 350: 4 units Blood sugar 351 to 400: 6 units Blood sugar 401 and above: 8 units and go to emergency room Prov:COREEN VILLALTA NP 07/05/23 Insulin Glargine (Basaglar Kwikpen) 100 Unit/Ml Inj, 20 UNIT SC DAILY for 30 Days, #5 UNITS Prov:VERENA BAUTISTA MD 11/07/21 Insulin Regular (Human) (Novolin R) 100 Unit/Ml Inj, 1-15 UNITS SC Q6HPRN PRN for 30 Days, #5 INJ 0 Refills take 1-15 units Q6hr ACHS per sliding scale Prov:VERENA BAUTISTA MD 11/07/21 Atorvastatin Calcium (Lipitor) 20 Mg Tab, 1 TAB PO DAILY, #30 TAB Prov:VERENA BAUTISTA MD 11/07/21 Information Source: Patient, Emergency Med Personnel Mode of Arrival: EMS Severity: Moderate Timing: Days Duration: Since onset Prehospital treatment: None Associated signs and symptoms Vomiting with hematemesis Past Medical History PAST MEDICAL HISTORY: DM, High Lipids, Liver, Seizures Surgical History: Denies all surgeries Family History Family History: Reviewed,noncontributory to illness Social History Smoker: Non-Smoker Alcohol: Heavy Drugs: Denies Drug Use Lives In: Home Constitutional: denies: chills, diaphoresis, fatigue, fever, malaise, sweats, weakness, others EENTM: denies: blurred vision, double vision, ear bleeding, ear discharge, ear drainage, ear pain, ear ringing, eye pain, eye redness, hearing loss, mouth pain, mouth swelling, nasal discharge, nose bleeding, nose congestion, nose pain, photophobia, tearing, throat pain, throat swelling, voice changes, others Respiratory: denies: cough, hemoptysis, orthopnea, SOB at rest, shortness of breath, SOB with excertion, stridor, wheezing, others Cardiovascular: denies: chest pain, dizzy spells, diaphoresis, Dyspnea on exertion, edema, irregular heart beat, left arm pain, lightheadedness, palpitations, PND, syncope, others Gastrointestinal: reports: hematemesis, vomiting; denies: abdomen distended, abdominal pain, blood streaked bowels, constipated, diarrhea, dysphagia, difficulty swallowing, melena, nausea, poor appetite, poor fluid intake, rectal bleeding, rectal pain, others Physical Exam General Appearance: Moderate Distress HEENT: Normal ENT Inspection, Pharynx Normal, TMs Normal Neck: Full Range of Motion, Non-Tender, Normal, Normal Inspection Respiratory: Chest Non-Tender, Lungs Clear, No Accessory Muscle Use, No Respiratory Distress, Normal Breath Sounds Cardiovascular: No Edema, No JVD, No Murmur, No Gallop, Normal Peripheral Pulses, Regular Rate/Rhythm Breast Exam: Deferred Gastrointestinal: No Organomegaly, Non Tender, No Pulsatile Mass, Normal Bowel Sounds, Soft Genitalia: Deferred Pelvic: Deferred Rectal: Deferred Extremities: No calf tenderness, Normal capillary refill, Normal inspection, Normal range of motion, Non-tender, No pedal edema Musculoskeletal : Apperance: Normal Neurologic: Alert, glass cleaning machine tender II-XII nml as Tested, No Motor Deficits, Normal Affect, Normal Mood, No Sensory Deficits Cerebellar Function: Normal Reflexes: Normal Skin: Dry, Normal Color, Warm Lymphatic: No Adenopathy Was a procedure done? Was a procedure done?: No Differential Dx Considerations may include: Dehydration, hematemesis, upper GI bleed, alcohol abuse X-Ray, Labs, Meds, VS Vital Signs Date Time Temp Pulse Resp B/P (MAP) Pulse Ox O2 Delivery O2 Flow Rate FiO2 06/08/24 13:00 Room Air* 0 21 06/08/24 11:16 96.8 126 20 160/96 (117) 100 Lab Test 06/08/24 15:34 06/08/24 15:33 06/08/24 14:05 06/08/24 11:59 Range/Units POC Glucose > 600 *H > 600 *H 70-106 mg/dl Blood Gas Specimen Type Arterial Blood Gas Sample Site Right radial Blood Gas Patient Temperature 37.0 Arterial Blood Date Drawn [id number] Arterial Blood pH 7.265 L 7.350-7.450 Arterial Blood Partial Pressure CO2 < 12.6 *L 35.0-48.0 mmHg Arterial Blood Partial Pressure O2 118.8 H 83.0-108.0 mmHg Arterial Blood Oxygen Saturation 97.3 94.0-98.0 % Arterial Blood Oxyhemoglobin 96.0 94.0-98.0 % Arterial Blood Carboxyhemoglobin 0.7 0.5-1.5 % Arterial Blood Methemoglobin 0.6 0.0-1.5 % Baljit Test Yes Blood Gas Total Hemoglobin 15.50 13.5-17.5 g/dL Blood Gas Modality Room air FiO2 % 21.0 Blood Gas Critical Value Read Back Yes Blood Gas Notified Whom Blood Gas Notified Time [id number] Blood Gas Notified By Contract Negotiation Manager benjamin Sodium Level 126 L 136-145 mmol/L Potassium Level 3.6 3.5-5.1 mmol/L Chloride Level 76 L 98-107 mmol/L Carbon Dioxide Level < 10 *L 20-31 mmol/L Anion Gap 40.74185 H 5-15 Blood Urea Nitrogen 50 H 9-23 mg/dL Creatinine 2.77 H 0.700-1.30 mg/dL Glomerular Filtration Rate Calc 30 >90 mL/min BUN/Creatinine Ratio 18.1 10.0-20.0 Serum Glucose 704 *H 74-106 mg/dL Calcium Level 8.2 L 8.7-10.4 mg/dL Total Bilirubin 1.1 H 0.2-1.0 mg/dL Aspartate Amino Transferase (AST) 10 L 13-40 U/L Alanine Aminotransferase (ALT) 12 7-40 U/L Alkaline Phosphatase 145 H 46-116 U/L Total Protein 8.0 5.7-8.2 g/dL Albumin 4.8 3.2-4.8 g/dL Lipase 179 H 12-53 U/L Plasma/Serum Blood Alcohol < 3.0 <10 mg/dL White Blood Count 14.8 H 4.4-10.8 10^3/uL Red Blood Count 5.49 4.5-5.90 10^6/uL Hemoglobin 16.5 13.5-17.5 g/dL Hematocrit 51.5 41.0-53.0 % Mean Corpuscular Volume 93.8 80.0-100.0 fL Mean Corpuscular Hemoglobin 30.0 28.0-32.0 pg Mean Corpuscular Hemoglobin Concent 32.0 32.0-36.0 g/dL Red Cell Distribution Width 14.3 11.8-14.3 % Platelet Count 218 140-450 10^3/uL Mean Platelet Volume 7.9 6.9-10.8 fL Neutrophils (%) (Auto) 92.4 H 37.0-80.0 % Lymphocytes (%) (Auto) 2.0 L 10.0-50.0 % Monocytes (%) (Auto) 5.5 0.0-12.0 % Eosinophils (%) (Auto) 0.0 0.0-7.0 % Basophils (%) (Auto) 0.1 0.0-2.0 % Neutrophils # (Auto) 13.7 H 1.6-8.6 10 ^3/uL Lymphocytes # (Auto) 0.3 L 0.4-5.4 10 ^3/uL Monocytes # (Auto) 0.8 0-1.3 10 ^3/uL Eosinophils # (Auto) 0 0-0.8 10 ^3/uL Basophils # (Auto) 0 0-0.2 10 ^3/uL Nucleated Red Blood Cells 0.1 % Current Medications Medications (Trade) Dose Ordered Sig/Lazaro Route Start Time Stop Time Status Last Admin Sodium Chloride 500 ml @ 500 mls/hr Q1H ONCE IV 06/08/24 11:45 06/08/24 12:44 DC 06/08/24 11:45 Prochlorperazine Edisylate (Compazine Inj) 10 mg ONCE ONCE IV 06/08/24 11:45 06/08/24 11:46 DC 06/08/24 12:59 Pantoprazole Sodium (Protonix) 40 mg ONCE ONCE IV 06/08/24 11:45 06/08/24 11:46 DC 06/08/24 12:59 Insulin Glargine (Lantus) 15 units ONCE ONCE SC 06/08/24 15:30 06/08/24 15:31 DC 06/08/24 15:50 Insulin Human Regular (InsuLIN R) 5 units ONCE ONCE IV 06/08/24 15:30 06/08/24 15:31 DC 06/08/24 15:50 Sodium Bicarbonate 50 ml ONCE ONCE IV 06/08/24 15:30 06/08/24 15:31 DC 06/08/24 15:49 Ceftriaxone Sodium 50 ml @ 100 mls/hr ONCE ONCE IV 06/08/24 15:30 06/08/24 15:59 06/08/24 15:51 IV Hep-Lock was established The patient was given normal saline at a 500 cc bolus The patient was given Compazine 10 mg IV push The patient was given Protonix 40 mg IV push The CBC shows a slightly elevated white blood cell count of 14.8 The rest of the CBC is within normal limits CT scan of the abdomen and pelvis shows: IMPRESSION: Mild peripancreatic fat stranding could be seen with pancreatitis. The lipase level was 179 indicating some acute pancreatitis The patient's ABG was done with a pH of 7.26. The CO2 level is less than 10 The serum glucose is 704 The patient was started on the insulin drip. The patient was also The and was start on some Rocephin IV piggyback The patient was being admitted to the ICU at this time We will continue to follow serum Accu-Cheks Critical Care and so bedside management as well as interpretation of laboratory Images Reviewed?: Images reviewed and evaluated by me Time of 1ST Reevaluation: 13:22 Reevaluation 1ST: Unchanged Patient Education/Counseling: Diagnosis, Treatment, Prognosis Family Education/Counseling: No Family Present Departure 1 Departure Time of Disposition: 13:23 Impression: Primary Impression: Diabetic ketoacidosis Qualified Codes: E13.10 - Other specified diabetes mellitus with ketoacidosis without coma Additional Impressions: Severe dehydration Hematemesis Qualified Codes: K92.0 - Hematemesis Alcohol abuse Disposition: 09 ADMITTED INPATIENT Admit to: ICU Condition: Guarded Critical Care Note Critical Care Time?: Yes (45 min-critical care time only) Stability Stability form required: Yes Unstable for transfer: ICU, CCU, PCU, [facility] (Intensive VS monitoring), ED Physician Assesment (Clinical assesment) Heart Score Heart Score: Heart Score Response (Comments) Value History N/A 0 EKG N/A 0 Age N/A 0 Risk Factors N/A 0 Troponin N/A 0 Total 0 NIRMALA BOURGEOIS MD Jun 08, 2024 12:00
--- NOTE | 2024-06-08 12:07 | DVH ---
CT CT AB PEL WO CON-NO ORAL OR IV INDICATION: pain EXAM DATE: 06/08/2024 11:39 AM COMPARISON: None RADIATION DOSE: CTDIvol: 5.25 mGy, DLP: 313.41 mGy*cm PROCEDURE: Helical CT images were obtained of the abdomen and pelvis without IV contrast Sagittal an d coronal reconstructions are provided. ORAL CONTRAST: None. ADDITIONAL IMAGES / REFORMATS: None All CT scans at this medical facility are performed using dose modulation techniques as appropriate t o a performed exam including the following: Automated exposure control was utilized; adjustment of th e MA and/or KV according to patient size; and use of iterative reconstruction technique. FINDINGS: LUNG BASE: Normal. LIVER: Normal. GALLBLADDER AND BILIARY TREE: No calcified gallstones. Normal caliber wall. No intra- or extrahepatic biliary ductal dilation. PANCREAS: Mild peripancreatic fat stranding. SPLEEN: Normal. BOWEL: Normal. Normal appendix. ADRENALS: Normal. KIDNEYS AND URETER: Normal. BLADDER: Normal. REPRODUCTIVE ORGANS: Normal. LYMPH NODES:No lymphadenopathy. PERITONEUM: No ascites or free air. No other fluid collection. VESSELS: Normal. RETROPERITONEUM: Normal. ABDOMINAL WALL: Normal. BONES: Scattered osseous degenerative changes are noted. IMPRESSION: Mild peripancreatic fat stranding could be seen with pancreatitis..
[2024-06-08 12:30] LABS: Basophils # (auto) 0 10 ^3/uL (0-0.2); Basophils % (auto) 0.1 % (0.0-2.0); Eosinophils # (auto) 0 10 ^3/uL (0-0.8); Hematocrit 51.5 % (41.0-53.0); Hemoglobin 16.5 g/dL (13.5-17.5); Lymphocytes # (auto) 0.3 10 ^3/uL (0.4-5.4); Mean Corpuscular Volume 93.8 fL (80.0-100.0); Monocytes # (auto) 0.8 10 ^3/uL (0-1.3); Monocytes % (auto) 5.5 % (0.0-12.0); Neutrophils # (auto) 13.7 10 ^3/uL (1.6-8.6); Neutrophils % (auto) 92.4 % (37.0-80.0); Nucleated Red Blood Cells % 0.1 %; Platelet Count (auto) 218 10^3/uL (140-450); Red Blood Cells 5.49 10^6/uL (4.5-5.90); Red Cell Distribution Width 14.3 % (11.8-14.3); White Blood Cell 14.8 10^3/uL (4.4-10.8)
[2024-06-08] MEDS: PANTOPRAZOLE 40 MG/10 ML VIAL INJ IV ONE (12:59)
[2024-06-08] MEDS: PROCHLORPERAZINE EDISYLATE 5 MG/ML 2ML VIAL IV ONE (12:59)
[2024-06-08 14:36] LABS: Anion Gap 40.00001 (5-15)
[2024-06-08 14:42] LABS: BUN/Creatinine Ratio 18.1 (10.0-20.0)
[2024-06-08 14:54] LABS: Carbon Dioxide < 10 mmol/L (20-31)
[2024-06-08 14:55] LABS: Blood Alcohol < 3.0 mg/dL (<10); Blood Urea Nitrogen 50 mg/dL (9-23); Chloride 76 mmol/L (98-107); Glucose 704 mg/dL (74-106); Potassium 3.6 mmol/L (3.5-5.1); Sodium 126 mmol/L (136-145)
[2024-06-08 14:56] LABS: Alanine Aminotransferase 12 U/L (7-40); Albumin 4.8 g/dL (3.2-4.8); Alkaline Phosphatase 145 U/L (46-116); Aspartate Aminotransferase 10 U/L (13-40); Bilirubin, Total 1.1 mg/dL (0.2-1.0); Calcium 8.2 mg/dL (8.7-10.4)
[2024-06-08] MEDS ORDERED: DEXTROSE (50%) 50ML SYRG IV PRN ×2 (15:30→21:00)
[2024-06-08] MEDS: INSULIN DRIP 100 UNIT/100ML 100 ML IV SCH (15:30)
[2024-06-08 15:39] LABS: Lipase 179 U/L (12-53)
[2024-06-08] MEDS: SODIUM BICARB 8.4% 50Meq/50ml SYR Vial IV ONE (15:49)
[2024-06-08] MEDS: InsuLIN REG 1unit/0.01ml Soln (100units/ml) IV ONE (15:50)
[2024-06-08] MEDS: INSULIN LANTUS (GLARGINE) 1 /0.01ml (100units/ml) SC ONE (15:50)
[2024-06-08] MEDS: cefTRIAXone 1GM/50ML D5W 50 ML IV ONE (15:51)
[2024-06-08 16:00] VITALS: PULSE 94; RESP 17; O2SAT 99
[2024-06-08] MEDS ORDERED: DOCUSATE SOD 100 MG CAP PO PRN (16:00)
[2024-06-08] MEDS ORDERED: hydrALAZINE HCL 20 MG/ML VL IV PRN (16:00)
[2024-06-08] MEDS ORDERED: ACETAMINOPHEN 325 MG TAB PO PRN (16:00)
[2024-06-08] MEDS: ACCU-CHEK COMFORT CURVE STRIP VI SCH (16:30)
--- NOTE | 2024-06-08 17:19 | DVHHP2 ---
History of Present Illness Reason for Visit: Diabetic ketoacidosis History of Present Illness The patient is a 34-year-old male with past medical history of DM, liver disease, seizures, and hyperlipidemia who presented to [facility] ED with complaint of abdominal pain. Patient reports he has been drinking binge for the past 3 days, having nausea, hematemesis, diffuse abdominal pain, rating 7/10 numeric scale, getting worse today that prompted this visit. Patient was seen and evaluated in the ED, laboratory data shows WBC 14.8, platelets 218, sodium 126, potassium 3.6, BUN 50, creatinine 2.77, glucose 704, anion gap 40.00, AST 10, ALT 12, total bilirubin 1.1, lipase 179, blood pressure 160/96, heart rate 126, temperature 96.8 F, O2 saturation 97% on oxygen. Patient was found to be in diabetic ketoacidosis, started on insulin drip, please see medication orders section in the computer. On my assessment, patient denied chest pain, no headache, no dizziness, no diaphoresis, currently on oxygen, no diarrhea, no nausea or vomiting at this moment, no fever, no chills. Patient was admitted for further evaluation and medical management. Past Medical History DM, High Lipids, Liver disease, Seizures, EtOH abuse Past Surgical History Denies all surgeries Family History Reviewed, noncontributory to the management of this case. Past Social History The patient lives at home, drinks alcohol heavily, denies smoking or illicit drugs abuse. Review of Systems Constitutional: Yes: Weakness; No: Fever, Chills, Sweats, Malaise, Other Eyes: No: Pain, Vision change, Conjunctivae inflammation, Eyelid inflammation, Other, Redness ENT: No: Ear pain, Ear discharge, Nose pain, Nose discharge, Nose congestion, Mouth pain, Mouth swelling, Throat pain, Throat swelling, Other Respiratory: No: Cough, Dry, Shortness of breath, SOB with excertion, Wheezing, Hemoptysis, Pleuritic Pain, Sputum, Wheezing, Other Cardiovascular: No: Chest Pain, Palpitations, Orthopnea, Paroxysmal Noc. Dyspnea, Edema, Lt Headedness, Other Gastrointestinal: Nausea, Vomiting, Abdominal Pain, Other (Reports hematemesis); No: Diarrhea, Constipation, Melena, Hematochezia Genitourinary: No Dysuria, No Frequency, No Incontinence, No Hematuria, No Retention, No Other Musculoskeletal: No: other, neck pain, shoulder pain, arm pain, back pain, hand pain, leg pain, foot pain Skin: No: Rash, Lesions, Jaundice, Bruising, Other Neurological: No: Weakness, Numbness, Incoordination, Change in speech, Confusion, Seizures, Other Allergies: Coded Allergies: NO KNOWN ALLERGIES (Unverified , 06/03/22) Medications Current Medications Medications Dose Ordered Sig/Lazaro Route Start Time Stop Time Status Last Admin Dose Admin Insulin Human (Reg)/Sodium Chloride 100 ml @ 0.5 mls/hr Q24H IV 06/08/24 15:30 06/08/24 15:30 6 MLS/HR Diagnostic Test (Pha) 1 strip Q90MIN 06/08/24 16:30 06/08/24 16:30 1 STRIP Dextrose 50 ml PRN PRN IV 06/08/24 15:30 Insulin Glargine 15 units DAILY SC 06/09/24 10:00 Pantoprazole Sodium 40 mg DAILY IV 06/09/24 10:00 UNV Ceftriaxone Sodium 50 ml @ 100 mls/hr DAILY@09 IV 06/09/24 09:00 UNV Atorvastatin Calcium 20 mg HS PO 06/08/24 22:00 UNV Hydralazine HCl 10 mg Q6HP PRN IV 06/08/24 16:00 UNV Acetaminophen/ Hydrocodone Bitart 1 tab Q4HP PRN PO 06/08/24 16:00 UNV Ondansetron HCl 4 mg Q4HP PRN IV 06/08/24 16:00 UNV Docusate Sodium 100 mg BIDPRN PRN PO 06/08/24 16:00 UNV Acetaminophen 650 mg Q6HP PRN PO 06/08/24 16:00 UNV Exam Vital Signs Vital Signs Date Time Temp Pulse Resp B/P (MAP) Pulse Ox O2 Delivery O2 Flow Rate FiO2 06/08/24 16:00 129 21 126/78 (94) 100 06/08/24 13:00 Room Air* 0 21 06/08/24 11:16 96.8 General Appearance: Alert, Oriented X3, Cooperative, No acute distress HEENT: Atraumatic, PERRLA, EOMI, Mucous membr. moist/pink Respiratory: Clear to auscultation, Normal air movement Cardiovascular: Regular rate, Normal S1, Normal S2, No murmurs Abdominal: Normal bowel sounds, Soft, No tenderness, No hepatospenomegaly, No m asses Extremities: No clubbing, No cyanosis, No edema, Normal pulses, No tenderness/swelling Skin: No rashes, No breakdown, No significant lesion Neuro: Normal speech, Normal tone, Sensation intact, Cranial nerves 3-12 NL, Reflexes 2+, Other (Generalized weakness) Psych/Mental Status: Mental status NL, Mood NL Labs/Xrays Labs Test 06/08/24 17:02 06/08/24 15:33 06/08/24 14:05 06/08/24 11:59 Range/Units POC Glucose > 600 *H 70-106 mg/dl Blood Gas Specimen Type Arterial Blood Gas Sample Site Right radial Blood Gas Patient Temperature 37.0 Arterial Blood Date Drawn [id number] Arterial Blood pH 7.265 L 7.350-7.450 Arterial Blood Partial Pressure CO2 < 12.6 *L 35.0-48.0 mmHg Arterial Blood Partial Pressure O2 118.8 H 83.0-108.0 mmHg Arterial Blood Oxygen Saturation 97.3 94.0-98.0 % Arterial Blood Oxyhemoglobin 96.0 94.0-98.0 % Arterial Blood Carboxyhemoglobin 0.7 0.5-1.5 % Arterial Blood Methemoglobin 0.6 0.0-1.5 % Baljit Test Yes Blood Gas Total Hemoglobin 15.50 13.5-17.5 g/dL Blood Gas Modality Room air FiO2 % 21.0 Blood Gas Critical Value Read Back Yes Blood Gas Notified Whom Blood Gas Notified Time [id number] Blood Gas Notified By Manager Contact benjamin Sodium Level 126 L 136-145 mmol/L Potassium Level 3.6 3.5-5.1 mmol/L Chloride Level 76 L 98-107 mmol/L Carbon Dioxide Level < 10 *L 20-31 mmol/L Anion Gap 40.91158 H 5-15 Blood Urea Nitrogen 50 H 9-23 mg/dL Creatinine 2.77 H 0.700-1.30 mg/dL Glomerular Filtration Rate Calc 30 >90 mL/min BUN/Creatinine Ratio 18.1 10.0-20.0 Serum Glucose 704 *H 74-106 mg/dL Calcium Level 8.2 L 8.7-10.4 mg/dL Total Bilirubin 1.1 H 0.2-1.0 mg/dL Aspartate Amino Transferase (AST) 10 L 13-40 U/L Alanine Aminotransferase (ALT) 12 7-40 U/L Alkaline Phosphatase 145 H 46-116 U/L Total Protein 8.0 5.7-8.2 g/dL Albumin 4.8 3.2-4.8 g/dL Lipase 179 H 12-53 U/L Plasma/Serum Blood Alcohol < 3.0 <10 mg/dL White Blood Count 14.8 H 4.4-10.8 10^3/uL Red Blood Count 5.49 4.5-5.90 10^6/uL Hemoglobin 16.5 13.5-17.5 g/dL Hematocrit 51.5 41.0-53.0 % Mean Corpuscular Volume 93.8 80.0-100.0 fL Mean Corpuscular Hemoglobin 30.0 28.0-32.0 pg Mean Corpuscular Hemoglobin Concent 32.0 32.0-36.0 g/dL Red Cell Distribution Width 14.3 11.8-14.3 % Platelet Count 218 140-450 10^3/uL Mean Platelet Volume 7.9 6.9-10.8 fL Neutrophils (%) (Auto) 92.4 H 37.0-80.0 % Lymphocytes (%) (Auto) 2.0 L 10.0-50.0 % Monocytes (%) (Auto) 5.5 0.0-12.0 % Eosinophils (%) (Auto) 0.0 0.0-7.0 % Basophils (%) (Auto) 0.1 0.0-2.0 % Neutrophils # (Auto) 13.7 H 1.6-8.6 10 ^3/uL Lymphocytes # (Auto) 0.3 L 0.4-5.4 10 ^3/uL Monocytes # (Auto) 0.8 0-1.3 10 ^3/uL Eosinophils # (Auto) 0 0-0.8 10 ^3/uL Basophils # (Auto) 0 0-0.2 10 ^3/uL Nucleated Red Blood Cells 0.1 % PATIENT: YAZMIN SANDOVALACCT: [id number] UNIT: [id number] : 1990 LOC: ER ROOM / BED: / AGE / SEX: 34 / M ADM STATUS: REG ER SERVICE 1134 ORDERING PHYSICIAN: NIRMALA BOURGEOIS MD PROCEDURE(s): ABPL - CT AB PEL WO CON-NO ORAL OR IV REASON: pain ORDER NUMBER(s): [id number], ACCESSION NUMBER(s): [id number] CT CT AB PEL WO CON-NO ORAL OR IV INDICATION: pain EXAM DATE: 06/08/2024 11:39 AM COMPARISON: None RADIATION DOSE: CTDIvol: 5.25 mGy, DLP: 313.41 mGy*cm PROCEDURE: Helical CT images were obtained of the abdomen and pelvis without IV contrast Sagittal and coronal reconstructions are provided. ORAL CONTRAST: None. ADDITIONAL IMAGES/REFORMATS: None All CT scans at this medical facility are performed using dose modulation techniques as appropriate to a performed exam including the following: Automated exposure control was utilized; adjustment of the MA and/or KV according to patient size; and use of iterative reconstruction technique. FINDINGS: LUNG BASE: Normal. LIVER: Normal. GALLBLADDER AND BILIARY TREE: No calcified gallstones. Normal caliber wall. No intra- or extrahepatic biliary ductal dilation. PANCREAS: Mild peripancreatic fat stranding. SPLEEN: Normal. BOWEL: Normal. Normal appendix. ADRENALS: Normal. KIDNEYS AND URETER: Normal. BLADDER: Normal. REPRODUCTIVE ORGANS: Normal. LYMPH NODES:No lymphadenopathy. PERITONEUM: No ascites or free air. No other fluid collection. VESSELS: Normal. RETROPERITONEUM: Normal. ABDOMINAL WALL: Normal. BONES: Scattered osseous degenerative changes are noted. IMPRESSION: Mild peripancreatic fat stranding could be seen with pancreatitis. Assessment/Plan Assessment/Plan Diabetic ketoacidosis Severe dehydration Hematemesis Leukocytosis, unspecified Alcohol abuse Acute pancreatitis Acute renal injury Electrolyte imbalance Generalized weakness Other specified diabetes mellitus with ketoacidosis without coma Plan 1. Admit to intensive care unit 2. Breathing treatment 3. Pain control management 4. IV antibiotic management 5. Management of fluids and electrolytes 6. Consultation for hospitalist 7. Diagnostic test chest x-ray 8. DVT prophylaxis-on SCDs 9. Repeat labs CBC, CMP in a.m. 10. Home medication reviewed and reconciled 11. Continue with current medical management 12. Treatment plan discussed with patient and RN. Patient verbalized understanding. Plan discussed with: Patient, Other (RN) My Orders Orders - ALMA DELIA FUNES DNP Procedure Category Date Status Time Pantoprazole PHA 06/09/24 Logged (Protonix) 10:00 *[facility] CONS 06/08/24 Transmitted -[place] 15:50 Ceftriaxone 1gm/50ml PHA 06/09/24 Logged D5w (Rocephin) 09:00 Atorvastatin (Lipitor) PHA 06/08/24 Logged 22:00 Hydralazine Injection PHA 06/08/24 Logged (Apresoline Inject 16:00 Allergies JAYSHREE 06/08/24 In Process 15:50 Code Status CODE 06/08/24 Transmitted 15:50 Oxygen Per Hour RT 06/08/24 Transmitted 15:50 Hydrocodone-Acet PHA 06/08/24 Logged 5/325mg Tab ([place] 16:00 Ondansetron Hcl PHA 06/08/24 Logged (Zofran) 16:00 Docusate Sodium PHA 06/08/24 Logged Capsule (Colace 16:00 Fall Risk Precautions JAYSHREE 06/08/[address] 15:50 Complete Blood Count LAB 06/09/24 Verified 04:00 Comprehensive LAB 06/09/24 Verified Metabolic Panel 04:00 Condition: Critical JAYSHREE 06/08/24 In Process 15:50 Acetaminophen Tablet PHA 06/08/24 Logged (Tylenol Tablet) 16:00 Sequential JAYSHREE 06/08/24 In Process Compression Device Consistent DIET 06/08/24 Transmitted Carb(Ccho)Diabetes Dinner Admit ADMIT 06/08/24 Verified 17:18 Nitroglycerin PHA 06/08/24 Verified Sublingual (Ntrostat 17:30 Morphine Sulfate PHA 06/08/24 Verified Injection 17:30 Notify Of Changes [facility] 06/08/24 Verified From Base 17:18 Cement Gun Operator For [facility] 06/08/24 Verified 24 Hours 17:18 Emergency Dysrhythmia [facility] 06/08/24 Verified Protocol 17:18 Rhythm Strips Once [facility] 06/08/24 Verified Every Shift 17:18 Oxygen By Nasal RT 06/08/24 Verified Cannula 17:18 Problem List: (1) Diabetic ketoacidosis (2) Generalized weakness (3) Electrolyte imbalance (4) Leukocytosis, unspecified (5) Alcohol abuse (6) Hematemesis (7) Acute pancreatitis (8) Severe dehydration (9) Acute renal injury (10) Other specified diabetes mellitus with ketoacidosis without coma Date of Service: Jun 08, 2024 Billing Provider: ALMA DELIA FUNES DNP Visit Codes: [id number] INP/OBS CARE (HIGH) ALMA DELIA FUNES DNP Jun 08, 2024 17:19
[2024-06-08] MEDS ORDERED: MORPHINE SULFATE INJ 2 MG/ml SYRG IV PRN (17:30)
[2024-06-08] MEDS ORDERED: NITROGLYCERIN 0.4 MG SL TAB SL PRN (17:30)
[2024-06-08] MEDS: SOD CHL 0.45% 1,000 ML IV SCH (20:55)
[2024-06-08 21:56] LABS: Anion Gap 29 (5-15)
[2024-06-08 22:02] LABS: BUN/Creatinine Ratio 21.1 (10.0-20.0)
[2024-06-08] MEDS: ATORVASTATIN 20 MG TAB PO SCH (22:09)
[2024-06-08 22:12] LABS: Blood Urea Nitrogen 57 mg/dL (9-23); Carbon Dioxide 18 mmol/L (20-31); Chloride 88 mmol/L (98-107); Glucose 265 mg/dL (74-106); Magnesium 2.8 mg/dL (1.6-2.6); Potassium 2.8 mmol/L (3.5-5.1); Sodium 135 mmol/L (136-145)
[2024-06-08 22:13] VITALS: PULSE 123; RESP 20; O2SAT 99
[2024-06-09] VITALS (43 sets, daily range): BP systolic 111–155; BP diastolic 40–102; PULSE 88–135; RESP 12–20; TEMP 98–98.3; O2SAT 93–99
[2024-06-09] MEDS: ONDANSETRON HCL 4 MG/2 ML VIAL IV PRN (03:54)
[2024-06-09 05:41] LABS: Basophils # (auto) 0 10 ^3/uL (0-0.2); Basophils % (auto) 0.1 % (0.0-2.0); Eosinophils # (auto) 0 10 ^3/uL (0-0.8); Hematocrit 45.2 % (41.0-53.0); Lymphocytes # (auto) 0.4 10 ^3/uL (0.4-5.4); Lymphocytes % (auto) 2.6 % (10.0-50.0); Mean Corpuscular Hemoglobin 29.7 pg (28.0-32.0); Mean Corpuscular Hgb Conc. 35.4 g/dL (32.0-36.0); Mean Corpuscular Volume 83.9 fL (80.0-100.0); Monocytes # (auto) 0.8 10 ^3/uL (0-1.3); Monocytes % (auto) 5.9 % (0.0-12.0); Neutrophils # (auto) 12.4 10 ^3/uL (1.6-8.6); Neutrophils % (auto) 91.4 % (37.0-80.0); Platelet Count (auto) 168 10^3/uL (140-450); Red Blood Cells 5.38 10^6/uL (4.5-5.90); Red Cell Distribution Width 14.2 % (11.8-14.3); White Blood Cell 13.6 10^3/uL (4.4-10.8)
[2024-06-09 05:53] LABS: Alanine Aminotransferase 13 U/L (7-40); Anion Gap 25 (5-15); BUN/Creatinine Ratio 27.1 (10.0-20.0); Bilirubin, Total 1.1 mg/dL (0.2-1.0); Calcium 9.4 mg/dL (8.7-10.4); Carbon Dioxide 21 mmol/L (20-31); Total Protein 8.1 g/dL (5.7-8.2)
[2024-06-09 06:17] LABS: Alkaline Phosphatase 131 U/L (46-116); Aspartate Aminotransferase 13 U/L (13-40); Blood Urea Nitrogen 54 mg/dL (9-23); Chloride 89 mmol/L (98-107); Glucose 301 mg/dL (74-106); Potassium 2.8 mmol/L (3.5-5.1); Sodium 135 mmol/L (136-145)
[2024-06-09 06:18] LABS: Albumin 5.1 g/dL (3.2-4.8)
[2024-06-09] MEDS: InsuLIN REG 1unit/0.01ml Soln (100units/ml) SC SCH ×2 (07:10→15:53)
[2024-06-09] MEDS: ACCU-CHEK COMFORT CURVE STRIP VI SCH ×3 (07:10→15:50)
[2024-06-09] MEDS: SOD CHL 0.45% 1,000 ML IV SCH ×2 (07:15)
[2024-06-09] MEDS ORDERED: DEXTROSE (50%) 50ML SYRG IV PRN ×2 (07:45→15:00)
[2024-06-09] MEDS: POTASSIUM CHL 20MEQ/100ML 100 ML IV SCH (08:32)
[2024-06-09] MEDS: INSULIN LANTUS (GLARGINE) 1 /0.01ml (100units/ml) SC SCH (09:20)
[2024-06-09] MEDS: PANTOPRAZOLE 40 MG/10 ML VIAL INJ IV SCH (09:20)
[2024-06-09] MEDS: D5W/SOD CHL 0.9%/KCL 40MEQ 1,000 ML IV SCH (12:46)
[2024-06-09] MEDS: cefTRIAXone 1GM/50ML D5W 50 ML IV SCH (13:27)
[2024-06-09 14:17] LABS: Sodium 138 mmol/L (136-145)
[2024-06-09 14:18] LABS: Anion Gap 14 (5-15); Carbon Dioxide 27 mmol/L (20-31)
[2024-06-09 14:19] LABS: Calcium 9.6 mg/dL (8.7-10.4)
[2024-06-09 14:23] LABS: BUN/Creatinine Ratio 27.1 (10.0-20.0)
[2024-06-09 14:25] LABS: Blood Urea Nitrogen 42 mg/dL (9-23); Chloride 97 mmol/L (98-107); Glucose 109 mg/dL (74-106); Potassium 2.9 mmol/L (3.5-5.1)
--- NOTE | 2024-06-09 14:25 | DVHINCON2 ---
Date of service: Jun 09, 2024 Referring Physician Shirley HUBER Reason for Consultation Acute kidney injury History of Present Illness 34-year-old male past medical history as diabetes on insulin patient has multiple hospitalizations at this hospital for diabetic ketoacidosis in the setting of noncompliance. Patient presents to the hospital complaining of several days of nausea and vomiting reports recent excessive been drinking of alcohol. He was admitted noted to have severe acidosis and hyperglycemia. He was thus admitted with a diagnosis of diabetic ketoacidosis. He was started on insulin drip. Nephrology consulted due to acidosis and acute kidney injury Past Medical History as above Allergies: Coded Allergies: NO KNOWN ALLERGIES (Unverified , 06/03/22) Home Meds Active Scripts Insulin Lispro (Human) (Humalog) 100 Unit/Ml Inj, 10 UNIT SC TID, #1000 UNITS Prov:VIJAY FELIX MD 03/29/24 Insulin Glargine (Lantus) 100 Unit/Ml Inj, 25 UNIT SC DAILY, #1000 UNITS Prov:VIJAY FELIX MD 03/29/24 Pantoprazole Sodium Sesquihydr (Pantoprazole Sodium) 40 Mg Tab, 40 MG PO DAILY@0600 for 30 Days, #30 TAB Prov:RIZWANA RODRIGUEZ RESIDENT 12/03/23 Insulin Aspart (Insulin Aspart Flexpen) 100 Unit/Ml Inj, 100 UNIT SC ACHS for 60 Days, #3 INJ Blood sugar 150 to 250: 2 units Blood sugar 251 to 350: 4 units Blood sugar 351 to 400: 6 units Blood sugar 401 and above: 8 units and go to emergency room Prov:COREEN VILLALTA NP 07/05/23 Insulin Glargine (Basaglar Kwikpen) 100 Unit/Ml Inj, 20 UNIT SC DAILY for 30 Days, #5 UNITS Prov:VERENA BAUTISTA MD 11/07/21 Insulin Regular (Human) (Novolin R) 100 Unit/Ml Inj, 1-15 UNITS SC Q6HPRN PRN for 30 Days, #5 INJ 0 Refills take 1-15 units Q6hr ACHS per sliding scale Prov:VERENA BAUTISTA MD 11/07/21 Atorvastatin Calcium (Lipitor) 20 Mg Tab, 1 TAB PO DAILY, #30 TAB Prov:VERENA BAUTISTA MD 11/07/21 Current Medications Current Medications Medications (Trade) Dose Ordered Sig/Lazaro Route PRN Reason Start Time Stop Time Status Last Admin Insulin Human (Reg)/Sodium Chloride 100 ml @ 0.5 mls/hr Q24H IV 06/08/24 15:30 06/09/24 10:03 Diagnostic Test (Pha) (Accu-Chek Comfort Curve T) 1 strip Q90MIN 06/08/24 16:30 06/09/24 07:01 DC 06/09/24 05:54 Dextrose 50 ml PRN PRN IV BG LESS Than 70 AND CALL 06/08/24 15:30 06/09/24 07:01 DC Insulin Glargine (Lantus) 15 units DAILY SC 06/09/24 10:00 06/09/24 09:20 Pantoprazole Sodium (Protonix) 40 mg DAILY IV 06/09/24 10:00 06/09/24 09:20 Ceftriaxone Sodium 50 ml @ 100 mls/hr DAILY@09 IV 06/09/24 09:00 06/09/24 13:27 Atorvastatin Calcium (Lipitor) 20 mg HS PO 06/08/24 22:00 06/08/24 22:09 Hydralazine HCl (Apresoline Injection) 10 mg Q6HP PRN IV SBP>150 06/08/24 16:00 Acetaminophen/ Hydrocodone Bitart ([place] 5/325MG Tab) 1 tab Q4HP PRN PO MODERATE PAIN (4-6 PAIN SCALE) 06/08/24 16:00 Ondansetron HCl (Zofran) 4 mg Q4HP PRN IV NAUSEA / VOMITING 06/08/24 16:00 06/09/24 09:31 Docusate Sodium (Colace Capsule) 100 mg BIDPRN PRN PO FOR CONSTIPATION 06/08/24 16:00 Acetaminophen (Tylenol Tablet) 650 mg Q6HP PRN PO PAIN SCALE 1-3 OR TEMP>100.4 06/08/24 16:00 Nitroglycerin (Ntrostat Sublingual) 0.4 mg Q5MINP PRN SL FOR CHEST PAIN 06/08/24 17:30 Morphine Sulfate 2 mg Q30M PRN IV FOR CHEST PAIN 06/08/24 17:30 Sodium Chloride 1,000 ml @ 150 mls/hr Q6H40M IV 06/08/24 20:00 06/09/24 07:11 DC 06/08/24 20:55 Diagnostic Test (Pha) (Accu-Chek Comfort Curve T) 1 strip IQ4HR 06/09/24 00:00 06/09/24 07:41 DC Insulin Human Regular (InsuLIN R) IQ4HR SC 06/09/24 00:00 06/09/24 07:41 DC Dextrose 50 ml UD PRN IV Blood Sugar LESS THAN 60 06/08/24 21:00 Cancel Sodium Chloride 1,000 ml @ 150 mls/hr Q6H40M IV 06/09/24 07:15 06/09/24 11:28 DC 06/09/24 07:15 Sodium Chloride 1,000 ml @ 125 mls/hr Q8H IV 06/09/24 07:15 Potassium Chloride 100 ml @ 50 mls/hr Q2H IV 06/09/24 07:15 06/09/24 11:14 DC 06/09/24 10:14 Diagnostic Test (Pha) (Accu-Chek Comfort Curve T) 1 strip Q90MIN 06/09/24 09:00 06/09/24 13:39 Dextrose 50 ml PRN PRN IV BG LESS Than 70 AND CALL MD 06/09/24 07:45 Potassium Chloride/Dextrose/ Sod Cl 1,000 ml @ 120 mls/hr Q8H20M IV 06/09/24 11:30 06/09/24 12:46 Family History: Asthma G8 MOTHER FH: cancer G8 MOTHER Hypercholesterolemia G8 MOTHER Hypertension G8 MOTHER Review of Systems Vomiting H&P Exam Vital Signs/I&O Vital Sign Date Time Temp Pulse Resp B/P (MAP) Pulse Ox O2 Delivery O2 Flow Rate FiO2 06/09/24 14:05 15 97 Room Air* 0 21 06/09/24 14:00 109 06/09/24 10:00 120/87 (98) 06/09/24 08:00 98.3 98.3 Intake and Output 06/08/24 06/09/24 19:00 07:00 Intake Total 568 ml 603 ml Balance 568 ml 603 ml IV Total 568 ml 603 ml Physical Exam Young male Nonacute distress Abdomen is soft No pitting edema Regular rate and rhythm Labs/Diagnostic Data Labs/Diagnostic Data Laboratory Tests Test 06/09/24 13:50 06/09/24 13:37 06/09/24 12:03 06/09/24 10:52 Range/Units Sodium Level 138 136-145 mmol/L Potassium Level 2.9 L 3.5-5.1 mmol/L Chloride Level 97 L 98-107 mmol/L Carbon Dioxide Level 27 20-31 mmol/L Anion Gap 14 5-15 Blood Urea Nitrogen 42 #H 9-23 mg/dL Creatinine 1.55 H 0.700-1.30 mg/dL Glomerular Filtration Rate Calc 60 >90 mL/min BUN/Creatinine Ratio 27.1 H 10.0-20.0 Serum Glucose 109 #H 74-106 mg/dL Calcium Level 9.6 8.7-10.4 mg/dL POC Glucose 122 H 119 H 148 H 70-106 mg/dl Test 06/09/24 09:03 06/09/24 07:42 06/09/24 05:04 06/09/24 04:30 Range/Units POC Glucose 186 H 229 H 307 H 70-106 mg/dl White Blood Count 13.6 H 4.4-10.8 10^3/uL Red Blood Count 5.38 4.5-5.90 10^6/uL Hemoglobin 16.0 13.5-17.5 g/dL Hematocrit 45.2 # 41.0-53.0 % Mean Corpuscular Volume 83.9 # 80.0-100.0 fL Mean Corpuscular Hemoglobin 29.7 28.0-32.0 pg Mean Corpuscular Hemoglobin Concent 35.4 32.0-36.0 g/dL Red Cell Distribution Width 14.2 11.8-14.3 % Platelet Count 168 140-450 10^3/uL Mean Platelet Volume 7.1 6.9-10.8 fL Neutrophils (%) (Auto) 91.4 H 37.0-80.0 % Lymphocytes (%) (Auto) 2.6 L 10.0-50.0 % Monocytes (%) (Auto) 5.9 0.0-12.0 % Eosinophils (%) (Auto) 0.0 0.0-7.0 % Basophils (%) (Auto) 0.1 0.0-2.0 % Neutrophils # (Auto) 12.4 H 1.6-8.6 10 ^3/uL Lymphocytes # (Auto) 0.4 0.4-5.4 10 ^3/uL Monocytes # (Auto) 0.8 0-1.3 10 ^3/uL Eosinophils # (Auto) 0 0-0.8 10 ^3/uL Basophils # (Auto) 0 0-0.2 10 ^3/uL Nucleated Red Blood Cells 0.0 % Sodium Level 135 L 136-145 mmol/L Potassium Level 2.8 L 3.5-5.1 mmol/L Chloride Level 89 L 98-107 mmol/L Carbon Dioxide Level 21 20-31 mmol/L Anion Gap 25 H 5-15 Blood Urea Nitrogen 54 H 9-23 mg/dL Creatinine 1.99 H 0.700-1.30 mg/dL Glomerular Filtration Rate Calc 44 >90 mL/min BUN/Creatinine Ratio 27.1 H 10.0-20.0 Serum Glucose 301 H 74-106 mg/dL Calcium Level 9.4 8.7-10.4 mg/dL Total Bilirubin 1.1 H 0.2-1.0 mg/dL Aspartate Amino Transferase (AST) 13 13-40 U/L Alanine Aminotransferase (ALT) 13 7-40 U/L Alkaline Phosphatase 131 H 46-116 U/L Total Protein 8.1 5.7-8.2 g/dL Albumin 5.1 H 3.2-4.8 g/dL Test 06/09/24 03:11 06/09/24 01:36 06/09/24 00:12 06/08/24 22:31 Range/Units POC Glucose 360 H 308 H 206 H 274 H 70-106 mg/dl Test 06/08/24 21:25 06/08/24 21:04 06/08/24 19:50 06/08/24 19:48 Range/Units Sodium Level 135 #L 136-145 mmol/L Potassium Level 2.8 L 3.5-5.1 mmol/L Chloride Level 88 #L 98-107 mmol/L Carbon Dioxide Level 18 L 20-31 mmol/L Anion Gap 29 H 5-15 Blood Urea Nitrogen 57 H 9-23 mg/dL Creatinine 2.70 H 0.700-1.30 mg/dL Glomerular Filtration Rate Calc 31 >90 mL/min BUN/Creatinine Ratio 21.1 H 10.0-20.0 Serum Glucose 265 #H 74-106 mg/dL Calcium Level 9.0 8.7-10.4 mg/dL Magnesium Level 2.8 H 1.6-2.6 mg/dL POC Glucose 305 H 400 H 412 *H 70-106 mg/dl Test 06/08/24 18:34 06/08/24 17:02 06/08/24 15:34 06/08/24 15:33 Range/Units POC Glucose 469 *H > 600 *H > 600 *H > 600 *H 70-106 mg/dl Blood Gas Specimen Type Arterial Blood Gas Sample Site Right radial Blood Gas Patient Temperature 37.0 Arterial Blood Date Drawn [id number] Arterial Blood pH 7.265 L 7.350-7.450 Arterial Blood Partial Pressure CO2 < 12.6 *L 35.0-48.0 mmHg Arterial Blood Partial Pressure O2 118.8 H 83.0-108.0 mmHg Arterial Blood Oxygen Saturation 97.3 94.0-98.0 % Arterial Blood Oxyhemoglobin 96.0 94.0-98.0 % Arterial Blood Carboxyhemoglobin 0.7 0.5-1.5 % Arterial Blood Methemoglobin 0.6 0.0-1.5 % Baljit Test Yes Blood Gas Total Hemoglobin 15.50 13.5-17.5 g/dL Blood Gas Modality Room air FiO2 % 21.0 Blood Gas Critical Value Read Back Yes Blood Gas Notified Whom Blood Gas Notified Time [id number] Blood Gas Notified By Gamer benjamin Test 06/08/24 14:05 06/08/24 11:59 Range/Units Sodium Level 126 L 136-145 mmol/L Potassium Level 3.6 3.5-5.1 mmol/L Chloride Level 76 L 98-107 mmol/L Carbon Dioxide Level < 10 *L 20-31 mmol/L Anion Gap 40.54893 H 5-15 Blood Urea Nitrogen 50 H 9-23 mg/dL Creatinine 2.77 H 0.700-1.30 mg/dL Glomerular Filtration Rate Calc 30 >90 mL/min BUN/Creatinine Ratio 18.1 10.0-20.0 Serum Glucose 704 *H 74-106 mg/dL Calcium Level 8.2 L 8.7-10.4 mg/dL Total Bilirubin 1.1 H 0.2-1.0 mg/dL Aspartate Amino Transferase (AST) 10 L 13-40 U/L Alanine Aminotransferase (ALT) 12 7-40 U/L Alkaline Phosphatase 145 H 46-116 U/L Total Protein 8.0 5.7-8.2 g/dL Albumin 4.8 3.2-4.8 g/dL Lipase 179 H 12-53 U/L Plasma/Serum Blood Alcohol < 3.0 <10 mg/dL White Blood Count 14.8 H 4.4-10.8 10^3/uL Red Blood Count 5.49 4.5-5.90 10^6/uL Hemoglobin 16.5 13.5-17.5 g/dL Hematocrit 51.5 41.0-53.0 % Mean Corpuscular Volume 93.8 80.0-100.0 fL Mean Corpuscular Hemoglobin 30.0 28.0-32.0 pg Mean Corpuscular Hemoglobin Concent 32.0 32.0-36.0 g/dL Red Cell Distribution Width 14.3 11.8-14.3 % Platelet Count 218 140-450 10^3/uL Mean Platelet Volume 7.9 6.9-10.8 fL Neutrophils (%) (Auto) 92.4 H 37.0-80.0 % Lymphocytes (%) (Auto) 2.0 L 10.0-50.0 % Monocytes (%) (Auto) 5.5 0.0-12.0 % Eosinophils (%) (Auto) 0.0 0.0-7.0 % Basophils (%) (Auto) 0.1 0.0-2.0 % Neutrophils # (Auto) 13.7 H 1.6-8.6 10 ^3/uL Lymphocytes # (Auto) 0.3 L 0.4-5.4 10 ^3/uL Monocytes # (Auto) 0.8 0-1.3 10 ^3/uL Eosinophils # (Auto) 0 0-0.8 10 ^3/uL Basophils # (Auto) 0 0-0.2 10 ^3/uL Nucleated Red Blood Cells 0.1 % Assessment Acute kidney injury hemodynamically mediated in the setting of severe volume depletion Baseline renal function is normal Hypokalemia Anion gap metabolic acidosis Diabetes uncontrolled Noncompliance and medical therapy Currently on insulin drip Agree with aggressive IV fluid and volume resuscitation Correct electrolytes as needed Avoid hypotension Avoid contrast studies Strict Is&Os Plan discussed with: Patient SANTIAGO BABB MD Jun 09, 2024 14:25
--- NOTE | 2024-06-09 15:01 | DVHPN2 ---
Subjective Patient reports having some residual nausea and generalized weakness. Reviewed: Care Plan, H&P, Labs, Medications Changes from previous H/P or p: No Changes General: Per HPI Eyes: No Pain, No Vision change, No Conjunctivae inflammation, No Eyelid inflammation, No Other, No Redness ENT: No Ear pain, No Ear discharge, No Nose pain, No Nose discharge, No Nose congestion, No Mouth pain, No Mouth swelling, No Throat pain, No Throat swelling, No Other Cardiovascular: No Chest Pain, No Palpitations, No Orthopnea, No Paroxysmal Noc. Dyspnea, No Edema, No Lt Headedness, No Other Respiratory: No Cough, No Dry, No Shortness of breath, No SOB with excertion, No Wheezing, No Hemoptysis, No Pleuritic Pain, No Sputum, No Other Gastrointestinal: Nausea, Vomiting, Abdominal Pain; No Diarrhea, No Constipation, No Melena, No Hematochezia; Other (Reports hematemesis) Genitourinary: No Dysuria, No Frequency, No Incontinence, No Hematuria, No Retention, No Other Musculoskeletal: No other, No neck pain, No shoulder pain, No arm pain, No back pain, No hand pain, No leg pain, No foot pain Skin: No Rash, No Lesions, No Jaundice, No Bruising, No Other Objective Vitals Vital Signs Date Time Temp Pulse Resp B/P (MAP) Pulse Ox O2 Delivery O2 Flow Rate FiO2 06/09/24 14:05 15 97 Room Air* 0 21 06/09/24 14:00 109 06/09/24 10:00 120/87 (98) 06/09/24 08:00 98.3 98.3 Intake/Output Intake and Output 06/09/24 07:00 Intake Total 1171 ml Balance 1171 ml IV Total 1171 ml General Appearance: Alert, Oriented X3, Cooperative, mild distress HEENT: Atraumatic, PERRLA Lungs: Clear to auscultation, Normal air movement Cardiovascular: Normal S1, Normal S2, Other (Sinus tachycardia) Abdomen: Normal bowel sounds Musculoskeletal: Normal sensory function, Normal motor function Neuro: Normal speech Psych/Mental Status: Mental status NL, Mood NL Medications Current Medications Medications Dose Ordered Sig/Lazaro Route Start Time Stop Time Status Last Admin Dose Admin Insulin Human (Reg)/Sodium Chloride 100 ml @ 0.5 mls/hr Q24H IV 06/08/24 15:30 06/09/24 10:03 2 MLS/HR Insulin Glargine 15 units DAILY SC 06/09/24 10:00 06/09/24 09:20 15 UNITS Pantoprazole Sodium 40 mg DAILY IV 06/09/24 10:00 06/09/24 09:20 40 MG Ceftriaxone Sodium 50 ml @ 100 mls/hr DAILY@09 IV 06/09/24 09:00 06/09/24 13:27 100 MLS/HR Atorvastatin Calcium 20 mg HS PO 06/08/24 22:00 06/08/24 22:09 20 MG Hydralazine HCl 10 mg Q6HP PRN IV 06/08/24 16:00 Acetaminophen/ Hydrocodone Bitart 1 tab Q4HP PRN PO 06/08/24 16:00 Ondansetron HCl 4 mg Q4HP PRN IV 06/08/24 16:00 06/09/24 09:31 4 MG Docusate Sodium 100 mg BIDPRN PRN PO 06/08/24 16:00 Acetaminophen 650 mg Q6HP PRN PO 06/08/24 16:00 Nitroglycerin 0.4 mg Q5MINP PRN SL 06/08/24 17:30 Morphine Sulfate 2 mg Q30M PRN IV 06/08/24 17:30 Dextrose 50 ml UD PRN IV 06/08/24 21:00 Cancel Sodium Chloride 1,000 ml @ 125 mls/hr Q8H IV 06/09/24 07:15 Diagnostic Test (Pha) 1 strip Q90MIN 06/09/24 09:00 06/09/24 13:39 1 STRIP Dextrose 50 ml PRN PRN IV 06/09/24 07:45 Potassium Chloride/Dextrose/ Sod Cl 1,000 ml @ 120 mls/hr Q8H20M IV 06/09/24 11:30 06/09/24 12:46 120 MLS/HR Laboratory Results Laboratory Tests 06/09/24 05:04 06/09/24 13:50 Chemistry Test 06/08/24 21:25 06/09/24 05:04 06/09/24 13:50 Calcium Level 9.0 mg/dL (8.7-10.4) 9.4 mg/dL (8.7-10.4) 9.6 mg/dL (8.7-10.4) Magnesium Level 2.8 mg/dL (1.6-2.6) H Albumin 5.1 g/dL (3.2-4.8) H Total Protein 8.1 g/dL (5.7-8.2) LFT Test 06/09/24 05:04 Alanine Aminotransferase (ALT) 13 U/L (7-40) Alkaline Phosphatase 131 U/L (46-116) H Aspartate Amino Transferase (AST) 13 U/L (13-40) Total Bilirubin 1.1 mg/dL (0.2-1.0) H Blood Gas Results Test 06/08/24 15:33 Arterial Blood pH 7.265 (7.350-7.450) FiO2 % 21.0 Labs and/or images reviewed: Labs reviewed by me, Image(s) reviewed by me Assessment/Plan Assessment/Plan Impression: -diabetic ketoacidosis -diabetes mellitus -leukocytosis , sirs -questionable pancreatitis -dyslipidemia -primary hypertension Plan: -assess patient's labs this a.m.. IV fluids as well as electrolyte replacement ordered. Reassessment of the patient was labs reveals that his anion gap has closed. Patient continues to be tachycardic as well as having blood sugars continuously under 180. -transfer to Medical/Surgical unit -start consistent carbohydrate diet -regular insulin sliding scale q.4 coverage, moderate scale -continue Lantus 15 units daily -continue prophylactic antibiotic therapy -repeat labs in a.m. Critical care time spent with patient discussing and formulating plan of care: 40 minutes. This does not include time spent performing procedures. This medical document was created using an electronic medical record system with [employer] dictation system. Although this document has been carefully reviewed, there may still be some phonetic and typographical errors. These areas are purely typographical due to imperfections of the software programs, and do not reflect any compromise in the patient's medical care. Plan discussed with: Patient, Other (RN) My Orders Orders - COREEN VILLALTA NP Procedure Category Date Status Time D5w/Sod Chl 0.9%/Kcl PHA 06/09/24 In Process 40meq 11:30 Date of Service: Jun 09, 2024 Billing Provider: COREEN VILLALTA NP Common Visit Codes: [id number] CARE 30-74 MIN COREEN VILLALTA NP Jun 09, 2024 15:01
[2024-06-10] VITALS (8 sets, daily range): BP systolic 135–150; BP diastolic 90–97; PULSE 74–105; RESP 16–20; TEMP 97.6–99.2; O2SAT 94–100
[2024-06-10 06:19] LABS: Basophils # (auto) 0 10 ^3/uL (0-0.2); Basophils % (auto) 0.2 % (0.0-2.0); Eosinophils # (auto) 0 10 ^3/uL (0-0.8); Hematocrit 39.9 % (41.0-53.0); Hemoglobin 13.9 g/dL (13.5-17.5); Lymphocytes # (auto) 0.5 10 ^3/uL (0.4-5.4); Lymphocytes % (auto) 7.4 % (10.0-50.0); Mean Corpuscular Hemoglobin 29.8 pg (28.0-32.0); Mean Corpuscular Hgb Conc. 34.9 g/dL (32.0-36.0); Mean Corpuscular Volume 85.6 fL (80.0-100.0); Monocytes # (auto) 0.6 10 ^3/uL (0-1.3); Monocytes % (auto) 8.7 % (0.0-12.0); Neutrophils # (auto) 5.6 10 ^3/uL (1.6-8.6); Neutrophils % (auto) 83.7 % (37.0-80.0); Nucleated Red Blood Cells % 0.1 %; Platelet Count (auto) 114 10^3/uL (140-450); Red Blood Cells 4.66 10^6/uL (4.5-5.90); Red Cell Distribution Width 13.5 % (11.8-14.3); White Blood Cell 6.6 10^3/uL (4.4-10.8)
[2024-06-10 06:50] LABS: Anion Gap 11 (5-15); Carbon Dioxide 26 mmol/L (20-31); Chloride 104 mmol/L (98-107); Sodium 141 mmol/L (136-145)
[2024-06-10 06:51] LABS: Calcium 9.4 mg/dL (8.7-10.4)
[2024-06-10 06:56] LABS: BUN/Creatinine Ratio 20.5 (10.0-20.0); Blood Urea Nitrogen 23 mg/dL (9-23)
[2024-06-10 06:58] LABS: Glucose 196 mg/dL (74-106); Magnesium 2.9 mg/dL (1.6-2.6); Potassium 3.4 mmol/L (3.5-5.1)
[2024-06-10] MEDS ORDERED: DEXTROSE (50%) 50ML SYRG IV PRN (10:30)
--- NOTE | 2024-06-10 10:30 | DVHPN2 ---
Subjective Patient reports having some residual nausea and generalized weakness. Reviewed: Care Plan, H&P, Labs, Medications Changes from previous H/P or p: No Changes General: Per HPI Eyes: No Pain, No Vision change, No Conjunctivae inflammation, No Eyelid inflammation, No Other, No Redness ENT: No Ear pain, No Ear discharge, No Nose pain, No Nose discharge, No Nose congestion, No Mouth pain, No Mouth swelling, No Throat pain, No Throat swelling, No Other Cardiovascular: No Chest Pain, No Palpitations, No Orthopnea, No Paroxysmal Noc. Dyspnea, No Edema, No Lt Headedness, No Other Respiratory: No Cough, No Dry, No Shortness of breath, No SOB with excertion, No Wheezing, No Hemoptysis, No Pleuritic Pain, No Sputum, No Other Gastrointestinal: Nausea, Vomiting, Abdominal Pain; No Diarrhea, No Constipation, No Melena, No Hematochezia; Other (Reports hematemesis) Genitourinary: No Dysuria, No Frequency, No Incontinence, No Hematuria, No Retention, No Other Musculoskeletal: No other, No neck pain, No shoulder pain, No arm pain, No back pain, No hand pain, No leg pain, No foot pain Skin: No Rash, No Lesions, No Jaundice, No Bruising, No Other Objective Vitals Vital Signs Date Time Temp Pulse Resp B/P (MAP) Pulse Ox O2 Delivery O2 Flow Rate FiO2 06/10/24 08:12 97.6 91 16 138/90 (106) 99 97.6 06/09/24 23:35 Room Air* 0 21 Intake/Output Intake and Output 06/10/24 07:00 Intake Total 2473 ml Output Total 930 ml Balance 1543 ml Intake Oral 1200 ml IV Total 1273 ml Output Urine Total 930 ml General Appearance: Alert, Oriented X3, Cooperative, mild distress HEENT: Atraumatic, PERRLA Lungs: Clear to auscultation, Normal air movement Cardiovascular: Normal S1, Normal S2, Other (Sinus tachycardia) Abdomen: Normal bowel sounds Musculoskeletal: Normal sensory function, Normal motor function Neuro: Normal speech Psych/Mental Status: Mental status NL, Mood NL Medications Current Medications Medications Dose Ordered Sig/Lazaro Route Start Time Stop Time Status Last Admin Dose Admin Insulin Human (Reg)/Sodium Chloride 100 ml @ 0.5 mls/hr Q24H IV 06/08/24 15:30 06/09/24 10:03 2 MLS/HR Insulin Glargine 15 units DAILY SC 06/09/24 10:00 06/10/24 09:49 15 UNITS Pantoprazole Sodium 40 mg DAILY IV 06/09/24 10:00 06/10/24 09:38 40 MG Ceftriaxone Sodium 50 ml @ 100 mls/hr DAILY@09 IV 06/09/24 09:00 06/10/24 09:50 100 MLS/HR Atorvastatin Calcium 20 mg HS PO 06/08/24 22:00 06/09/24 22:12 20 MG Hydralazine HCl 10 mg Q6HP PRN IV 06/08/24 16:00 Acetaminophen/ Hydrocodone Bitart 1 tab Q4HP PRN PO 06/08/24 16:00 Ondansetron HCl 4 mg Q4HP PRN IV 06/08/24 16:00 06/10/24 06:00 4 MG Docusate Sodium 100 mg BIDPRN PRN PO 06/08/24 16:00 Acetaminophen 650 mg Q6HP PRN PO 06/08/24 16:00 Nitroglycerin 0.4 mg Q5MINP PRN SL 06/08/24 17:30 Dextrose 50 ml UD PRN IV 06/08/24 21:00 Cancel Potassium Chloride/Dextrose/ Sod Cl 1,000 ml @ 120 mls/hr Q8H20M IV 06/09/24 11:30 06/10/24 05:10 120 MLS/HR Diagnostic Test (Pha) 1 strip IQ4HR 06/09/24 16:00 06/10/24 09:38 1 STRIP Insulin Human Regular IQ4HR SC 06/09/24 16:00 06/10/24 09:39 6 UNITS Dextrose 50 ml UD PRN IV 06/09/24 15:00 Laboratory Results Laboratory Tests 06/10/24 05:15 Chemistry Test 06/09/24 13:50 06/10/24 05:15 Calcium Level 9.6 mg/dL (8.7-10.4) 9.4 mg/dL (8.7-10.4) Magnesium Level 2.9 mg/dL (1.6-2.6) H Labs and/or images reviewed: Labs reviewed by me, Image(s) reviewed by me Assessment/Plan Assessment/Plan Impression: -diabetic ketoacidosis -diabetes mellitus -leukocytosis , sirs -questionable pancreatitis -dyslipidemia -primary hypertension Plan: -anion gap closed. Electrolytes repleted. Patient reporting persistent nausea and GERD symptoms. -start Reglan a.c. and HS, p.o. Protonix -change IV fluids to half NS with 20 mEq of potassium chloride at 75 mL/hr -transfer to Medical/Surgical unit -regular insulin sliding scale q.4 coverage, moderate scale -continue Lantus 15 units daily -continue prophylactic antibiotic therapy Total time spent with patient discussing and formulating plan of care: 35 minutes. This medical document was created using an electronic medical record system with [employer] dictation system. Although this document has been carefully reviewed, there may still be some phonetic and typographical errors. These areas are purely typographical due to imperfections of the software programs, and do not reflect any compromise in the patient's medical care. Plan discussed with: Patient, Other (RN) My Orders Orders - COREEN VILLALTA NP Procedure Category Date Status Time D5w/Sod Chl 0.9%/Kcl PHA 06/09/24 In Process 40meq 11:30 Transfer Orders XFER 06/09/24 Transmitted 14:57 Consistent DIET 06/09/24 Transmitted Carb(Ccho)Diabetes Dinner Glucose Blood PHA 06/09/24 In Process (Accu-Chek Comfort 16:00 Insulin R (Human) PHA 06/09/24 In Process (Insulin R) 16:00 Dextrose 50% Syringe PHA 06/09/24 In Process 15:00 Metoclopramide Tablet PHA 06/10/24 Verified (Reglan Tablet) 11:30 1/2 Ns W Potassium PHA 06/10/24 Verified 20meq 10:30 Date of Service: Jun 10, 2024 Billing Provider: COREEN VILLALTA NP Common Visit Codes: [id number] INP/OBS CARE(HIGH) COREEN VILLALTA NP Jun 10, 2024 10:30
--- NOTE | 2024-06-10 10:34 | DVHPN2 ---
Subjective Patient reports having some residual nausea Reviewed: Care Plan, H&P, Labs, Medications Changes from previous H/P or p: Changes General: Per HPI Eyes: No Pain, No Vision change, No Conjunctivae inflammation, No Eyelid inflammation, No Other, No Redness ENT: No Ear pain, No Ear discharge, No Nose pain, No Nose discharge, No Nose congestion, No Mouth pain, No Mouth swelling, No Throat pain, No Throat swelling, No Other Cardiovascular: No Chest Pain, No Palpitations, No Orthopnea, No Paroxysmal Noc. Dyspnea, No Edema, No Lt Headedness, No Other Respiratory: No Cough, No Dry, No Shortness of breath, No SOB with excertion, No Wheezing, No Hemoptysis, No Pleuritic Pain, No Sputum, No Other Gastrointestinal: Nausea, Vomiting, Abdominal Pain; No Diarrhea, No Constipation, No Melena, No Hematochezia; Other (Reports hematemesis) Genitourinary: No Dysuria, No Frequency, No Incontinence, No Hematuria, No Retention, No Other Musculoskeletal: No other, No neck pain, No shoulder pain, No arm pain, No back pain, No hand pain, No leg pain, No foot pain Skin: No Rash, No Lesions, No Jaundice, No Bruising, No Other Objective Vitals Vital Signs Date Time Temp Pulse Resp B/P (MAP) Pulse Ox O2 Delivery O2 Flow Rate FiO2 06/10/24 08:12 97.6 91 16 138/90 (106) 99 97.6 06/09/24 23:35 Room Air* 0 21 Intake/Output Intake and Output 06/10/24 07:00 Intake Total 2473 ml Output Total 930 ml Balance 1543 ml Intake Oral 1200 ml IV Total 1273 ml Output Urine Total 930 ml General Appearance: Alert, Oriented X3, Cooperative, mild distress HEENT: Atraumatic, PERRLA Lungs: Clear to auscultation, Normal air movement Cardiovascular: Normal S1, Normal S2, Other (Sinus tachycardia) Abdomen: Normal bowel sounds Musculoskeletal: Normal sensory function, Normal motor function Neuro: Normal speech Psych/Mental Status: Mental status NL, Mood NL Medications Current Medications Medications Dose Ordered Sig/Lazaro Route Start Time Stop Time Status Last Admin Dose Admin Insulin Human (Reg)/Sodium Chloride 100 ml @ 0.5 mls/hr Q24H IV 06/08/24 15:30 06/09/24 10:03 2 MLS/HR Insulin Glargine 15 units DAILY SC 06/09/24 10:00 06/10/24 09:49 15 UNITS Pantoprazole Sodium 40 mg DAILY IV 06/09/24 10:00 06/10/24 09:38 40 MG Ceftriaxone Sodium 50 ml @ 100 mls/hr DAILY@09 IV 06/09/24 09:00 06/10/24 09:50 100 MLS/HR Atorvastatin Calcium 20 mg HS PO 06/08/24 22:00 06/09/24 22:12 20 MG Hydralazine HCl 10 mg Q6HP PRN IV 06/08/24 16:00 Acetaminophen/ Hydrocodone Bitart 1 tab Q4HP PRN PO 06/08/24 16:00 Ondansetron HCl 4 mg Q4HP PRN IV 06/08/24 16:00 06/10/24 06:00 4 MG Docusate Sodium 100 mg BIDPRN PRN PO 06/08/24 16:00 Acetaminophen 650 mg Q6HP PRN PO 06/08/24 16:00 Nitroglycerin 0.4 mg Q5MINP PRN SL 06/08/24 17:30 Dextrose 50 ml UD PRN IV 06/08/24 21:00 Cancel Potassium Chloride/Dextrose/ Sod Cl 1,000 ml @ 120 mls/hr Q8H20M IV 06/09/24 11:30 06/10/24 05:10 120 MLS/HR Diagnostic Test (Pha) 1 strip IQ4HR 06/09/24 16:00 06/10/24 09:38 1 STRIP Insulin Human Regular IQ4HR SC 06/09/24 16:00 06/10/24 09:39 6 UNITS Dextrose 50 ml UD PRN IV 06/09/24 15:00 Laboratory Results Laboratory Tests 06/10/24 05:15 Chemistry Test 06/09/24 13:50 06/10/24 05:15 Calcium Level 9.6 mg/dL (8.7-10.4) 9.4 mg/dL (8.7-10.4) Magnesium Level 2.9 mg/dL (1.6-2.6) H Labs and/or images reviewed: Labs reviewed by me Assessment/Plan Assessment/Plan Impression: -diabetic ketoacidosis -diabetes mellitus -leukocytosis , sirs -questionable pancreatitis -dyslipidemia -primary hypertension Plan: -anion gap closed. Electrolytes repleted. Patient reporting persistent nausea and GERD symptoms. -start Reglan a.c. and HS, p.o. Protonix -change IV fluids to half NS with 20 mEq of potassium chloride at 75 mL/hr -transfer to Medical/Surgical unit -regular insulin sliding scale q.4 coverage, moderate scale -continue Lantus 15 units daily -continue prophylactic antibiotic therapy Total time spent with patient discussing and formulating plan of care: 35 minutes. This medical document was created using an electronic medical record system with [employer] dictation system. Although this document has been carefully reviewed, there may still be some phonetic and typographical errors. These areas are purely typographical due to imperfections of the software programs, and do not reflect any compromise in the patient's medical care. Plan discussed with: Patient, Other (RN) My Orders Orders - COREEN VILLALTA NP Procedure Category Date Status Time D5w/Sod Chl 0.9%/Kcl PHA 06/09/24 In Process 40meq 11:30 Transfer Orders XFER 06/09/24 Transmitted 14:57 Consistent DIET 06/09/24 Transmitted Carb(Ccho)Diabetes Dinner Glucose Blood PHA 06/09/24 In Process (Accu-Chek Comfort 16:00 Insulin R (Human) PHA 06/09/24 In Process (Insulin R) 16:00 Dextrose 50% Syringe PHA 06/09/24 In Process 15:00 Metoclopramide Tablet PHA 06/10/24 Verified (Reglan Tablet) 11:30 1/2 Ns W Potassium PHA 06/10/24 Verified 20meq 10:30 Date of Service: Jun 10, 2024 Billing Provider: COREEN VILLALTA NP Common Visit Codes: [id number] INP/OBS CARE(HIGH) COREEN VILLALTA NP Jun 10, 2024 10:34
[2024-06-10] MEDS: METOCLOPRAMIDE HCL 10 MG TAB PO SCH (11:15)
[2024-06-10] MEDS: SOD CHL 0.45% WITH 20MEQ KCL 1,000 ML IV SCH (11:15)
[2024-06-10] MEDS: InsuLIN REG 1unit/0.01ml Soln (100units/ml) SC SCH ×2 (11:32→22:52)
[2024-06-10] MEDS: ACCU-CHEK COMFORT CURVE STRIP VI SCH (11:37)
--- NOTE | 2024-06-10 13:43 | DVHPN2 ---
Progress Note - Dictate Date Seen: Jun 10, 2024 Medical Necessity Reason Pt with a Central, PICC or Fol: No vital signs Vital Sign Date Time Temp Pulse Resp B/P (MAP) Pulse Ox O2 Delivery O2 Flow Rate FiO2 06/10/24 12:20 98.0 92 20 139/97 (111) 97 98.0 06/09/24 23:35 Room Air* 0 21 Total Intake and Output 06/09/24 06/09/24 06/10/24 15:00 23:00 07:00 Intake Total 553 ml 1920 ml 0 ml Output Total 930 ml Balance 553 ml 990 ml 0 ml medications Current Medications Medications Dose Ordered Sig/Lazaro Route Start Time Stop Time Status Last Admin Dose Admin Insulin Glargine 15 units DAILY SC 06/09/24 10:00 06/10/24 09:49 15 UNITS Ceftriaxone Sodium 50 ml @ 100 mls/hr DAILY@09 IV 06/09/24 09:00 06/10/24 09:41 100 MLS/HR Atorvastatin Calcium 20 mg HS PO 06/08/24 22:00 06/09/24 22:12 20 MG Hydralazine HCl 10 mg Q6HP PRN IV 06/08/24 16:00 Acetaminophen/ Hydrocodone Bitart 1 tab Q4HP PRN PO 06/08/24 16:00 Ondansetron HCl 4 mg Q4HP PRN IV 06/08/24 16:00 06/10/24 06:00 4 MG Docusate Sodium 100 mg BIDPRN PRN PO 06/08/24 16:00 Acetaminophen 650 mg Q6HP PRN PO 06/08/24 16:00 Nitroglycerin 0.4 mg Q5MINP PRN SL 06/08/24 17:30 Dextrose 50 ml UD PRN IV 06/08/24 21:00 Cancel Metoclopramide HCl 5 mg ACHS PO 06/10/24 11:30 06/10/24 11:15 5 MG Potassium Chloride/Sodium Chloride 1,000 ml @ 75 mls/hr [id number] IV 06/10/24 10:30 06/10/24 11:15 75 MLS/HR Pantoprazole Sodium 40 mg DAILY@0600 PO 06/11/24 06:00 Diagnostic Test (Pha) 1 strip ACHS 06/10/24 11:30 06/10/24 11:37 1 STRIP Insulin Human Regular HS SC 06/10/24 22:00 Insulin Human Regular AC SC 06/10/24 11:30 06/10/24 11:32 6 UNITS Dextrose 50 ml UD PRN IV 06/10/24 10:30 objective Young male Nonacute distress Abdomen is soft No pitting edema Regular rate and rhythm laboratory and microbiology Laboratory Tests 06/10/24 05:15 Test 06/10/24 05:15 Range/Units Serum Glucose 196 H 74-106 mg/dL Assessment/Plan Acute kidney injury hemodynamically mediated in the setting of severe volume depletion Baseline renal function is normal Hypokalemia Anion gap metabolic acidosis Diabetes uncontrolled Noncompliance and medical therapy electrolytes have improved, KEILA resolved, currently on IV agree with primary current treatment plan will sign off Plan discussed with: Patient SANTIAGO BABB MD Jun 10, 2024 13:43
[2024-06-11 01:00] VITALS: BP 128/84; PULSE 100; RESP 20; TEMP 99; O2SAT 99
[2024-06-11 05:00] VITALS: BP 152/96; PULSE 81; RESP 20; TEMP 99.2; O2SAT 96
[2024-06-11] MEDS: PANTOPRAZOLE 40 MG TAB PO SCH (06:33)
[2024-06-11 08:00] VITALS: O2SAT 100
[2024-06-11] MEDS: HYDROcodone-ACET 5/325MG TAB PO PRN (08:57)
[2024-06-11 09:24] VITALS: BP 147/99; PULSE 86; RESP 16; TEMP 97.6; O2SAT 99
[2024-06-11] MEDS: INSULIN LANTUS (GLARGINE) 1 /0.01ml (100units/ml) SC SCH (09:58)
--- NOTE | 2024-06-11 10:35 | DVHDS2 ---
Discharge Summary Date of Admission Jun 08, 2024 at 17:18 Date of Discharge: Jun 11, 2024 Admitting Diagnosis Diabetic ketoacidosis Labs/Diagnostic Data: Laboratory Results Test 06/11/24 06:32 06/10/24 05:15 06/09/24 05:04 06/08/24 15:33 POC Glucose 247 mg/dl (70-106) White Blood Count 6.6 10^3/uL (4.4-10.8) Red Blood Count 4.66 10^6/uL (4.5-5.90) Hemoglobin 13.9 g/dL (13.5-17.5) Hematocrit 39.9 % (41.0-53.0) Mean Corpuscular Volume 85.6 fL (80.0-100.0) Mean Corpuscular Hemoglobin 29.8 pg (28.0-32.0) Mean Corpuscular Hemoglobin Concent 34.9 g/dL (32.0-36.0) Red Cell Distribution Width 13.5 % (11.8-14.3) Platelet Count 114 10^3/uL (140-450) Mean Platelet Volume 6.9 fL (6.9-10.8) Neutrophils (%) (Auto) 83.7 % (37.0-80.0) Lymphocytes (%) (Auto) 7.4 % (10.0-50.0) Monocytes (%) (Auto) 8.7 % (0.0-12.0) Eosinophils (%) (Auto) 0.0 % (0.0-7.0) Basophils (%) (Auto) 0.2 % (0.0-2.0) Neutrophils # (Auto) 5.6 10 ^3/uL (1.6-8.6) Lymphocytes # (Auto) 0.5 10 ^3/uL (0.4-5.4) Monocytes # (Auto) 0.6 10 ^3/uL (0-1.3) Eosinophils # (Auto) 0 10 ^3/uL (0-0.8) Basophils # (Auto) 0 10 ^3/uL (0-0.2) Nucleated Red Blood Cells 0.1 % Sodium Level 141 mmol/L (136-145) Potassium Level 3.4 mmol/L (3.5-5.1) Chloride Level 104 mmol/L (98-107) Carbon Dioxide Level 26 mmol/L (20-31) Anion Gap 11 (5-15) Blood Urea Nitrogen 23 mg/dL (9-23) Creatinine 1.12 mg/dL (0.700-1.30) Glomerular Filtration Rate Calc 88 mL/min (>90) BUN/Creatinine Ratio 20.5 (10.0-20.0) Serum Glucose 196 mg/dL (74-106) Calcium Level 9.4 mg/dL (8.7-10.4) Magnesium Level 2.9 mg/dL (1.6-2.6) Total Bilirubin 1.1 mg/dL (0.2-1.0) Aspartate Amino Transferase (AST) 13 U/L (13-40) Alanine Aminotransferase (ALT) 13 U/L (7-40) Alkaline Phosphatase 131 U/L (46-116) Total Protein 8.1 g/dL (5.7-8.2) Albumin 5.1 g/dL (3.2-4.8) Blood Gas Specimen Type Arterial Blood Gas Sample Site Right radial Blood Gas Patient Temperature 37.0 Arterial Blood Date Drawn [id number] Arterial Blood pH 7.265 (7.350-7.450) Arterial Blood Partial Pressure CO2 < 12.6 mmHg (35.0-48.0) Arterial Blood Partial Pressure O2 118.8 mmHg (83.0-108.0) Arterial Blood Oxygen Saturation 97.3 % (94.0-98.0) Arterial Blood Oxyhemoglobin 96.0 % (94.0-98.0) Arterial Blood Carboxyhemoglobin 0.7 % (0.5-1.5) Arterial Blood Methemoglobin 0.6 % (0.0-1.5) Baljit Test Yes Blood Gas Total Hemoglobin 15.50 g/dL (13.5-17.5) Blood Gas Modality Room air FiO2 % 21.0 Blood Gas Critical Value Read Back Yes Blood Gas Notified Whom Blood Gas Notified Time [id number] Blood Gas Notified By Multineedle Shirrer benjamin Cloud 06/08/24 14:05 Lipase 179 U/L (12-53) Plasma/Serum Blood Alcohol < 3.0 mg/dL (<10) Other Laboratory Tests 06/10/24 05:15 Brief Hx & Hospital Course: History of Present Illness The patient is a 34-year-old male with past medical history of DM, liver disease, seizures, and hyperlipidemia who presented to [facility] ED with complaint of abdominal pain. Patient reports he has been drinking binge for the past 3 days, having nausea, hematemesis, diffuse abdominal pain, rating 7/10 numeric scale, getting worse today that prompted this visit. Patient was seen and evaluated in the ED, laboratory data shows WBC 14.8, platelets 218, sodium 126, potassium 3.6, BUN 50, creatinine 2.77, glucose 704, anion gap 40.00, AST 10, ALT 12, total bilirubin 1.1, lipase 179, blood pressure 160/96, heart rate 126, temperature 96.8 F, O2 saturation 97% on oxygen. Patient was found to be in diabetic ketoacidosis, started on insulin drip, please see medication orders section in the computer. On my assessment, patient denied chest pain, no headache, no dizziness, no diaphoresis, currently on oxygen, no diarrhea, no nausea or vomiting at this moment, no fever, no chills. Patient was admitted for further evaluation and medical management. Course of hospitalization: Patient was started on insulin drip per protocol, transitioned to regular insulin sliding scale as well as IV Lantus. Blood sugars has been controlled after diet has been started. Patient was noted to have some residual nausea, probably secondary to gastroparesis after anion gap was closed. Nausea resolved with p.o. Reglan with meals. Long discussion was made with the patient regarding post discharge care. Patient will be provided resources for alcohol rehabilitation. Patient will also continue all antidiabetic regimen as he has problems with alcohol abuse and noncompliance. Physical examination General: Alert and Oriented x3. No acute distress. Well-nourished. Eyes: EOMI. Anicteric. HENT: Moist mucous membranes. Lungs: Clear to auscultation bilaterally. No accessory muscle use. Cardiovascular: Regular rate and rhythm. No murmur. No JVD. Abdomen: Soft, non-tender and non-distended. No palpable masses. Extremities: No edema. Non-tender. Skin: No rashes or lesions. Warm. Neurologic: No focal neurological deficits. CN II-XII grossly intact, but not individually tested. Psychiatric: Cooperative. Appropriate mood and affect. Total time spent with patient discussing and formulating plan of care: 35 minutes. This medical document was created using an electronic medical record system with Dragon computerized dictation system. Although this document has been carefully reviewed, there may still be some phonetic and typographical errors. These areas are purely typographical due to imperfections of the software programs, and do not reflect any compromise in the patient's medical care. Consults/Reason for consult Nephrology: Acute kidney injury Condition at Discharge: Poor (Given noncompliance and multiple readmissions for DKA) Final Diagnosis/Problems List Diabetic ketoacidosis Secondary Diagnosis: -diabetes mellitus -leukocytosis , sirs -questionable pancreatitis -dyslipidemia -primary hypertension Discharge Disposition: Home Discharge Instruct/Medications Diet: Consistent carbohydrate Activity: No Restrictions, As Tolerated Follow Up/Referral: Follow up with discharge Clinic in one week Follow up with PCP in 1-2 weeks Medications: Continue all previous home medications 36 Discharge Statement: "Patient was advised to return to the ER or call 911 if any headaches, dizziness, shortness of breath, chest pain, abdominal pain, bleeding, fevers, or worsening of medical condition. Patient was counseled about treatment plan, medications, possible side effects, patientverbalized understanding. All questions were answered to the best of my ability. This discharge took greater then 30 minutes in planning, reviewing documentation, counseling the patient, and discussing with other team members." ASSESSMENT ASSESSMENT Assessment Diabetic ketoacidosis Date of Service: Jun 11, 2024 Billing Provider: COREEN VILLALTA NP Common Visit Codes: 12925-LOH/OBS DISCH DAY >30min COREEN VILLALTA NP Jun 11, 2024 10:35
== END 2024-06-11 16:09 | disposition home or self-care (01) | DRG 420 ==
LOC: ER 11:15 → EDBD 11:15 → OVERFLOW 17:18 → EAST 06-09 23:30
PROVIDERS: ADMIT Nurse Practitioner Family; ATTEND Nurse Practitioner Acute Care
DX: E11.10 Type 2 diabetes mellitus with ketoacidosis without coma (principal); N17.0 Acute kidney failure with tubular necrosis; K85.90 Acute pancreatitis without necrosis or infection, unspecified; K92.0 Hematemesis; R65.10 Systemic inflammatory response syndrome (SIRS) of non-infectious origin without acute organ dysfunction; F10.10 Alcohol abuse, uncomplicated; E86.0 Dehydration; I10 Essential (primary) hypertension; E87.6 Hypokalemia; E78.5 Hyperlipidemia, unspecified; E11.43 Type 2 diabetes mellitus with diabetic autonomic (poly)neuropathy; K31.84 Gastroparesis; Z79.4 Long term (current) use of insulin; Z91.199 Patient's noncompliance with other medical treatment and regimen due to unspecified reason; Z82.49 Family history of ischemic heart disease and other diseases of the circulatory system; Z82.5 Family history of asthma and other chronic lower respiratory diseases; Y90.9 Presence of alcohol in blood, level not specified
CPT/HCPCS: 36415; 36600; 74176; 80048; 80053; 80320; 82805; 82962; 83690; 83735; 85025; 86850; 86900; 86901; 96361; 96365; 96372; 96375; 99291; G0378; J1815; J2405; J2470; J3480

== ENCOUNTER 2024-07-11 21:15 | Inpatient (IN) | payer MEDICAID ==
[~2024-07-11] VITALS: Ht 170.2 cm; Wt 64.9 kg
[2024-07-11] MEDS ORDERED: DEXTROSE (50%) 50ML SYRG IV PRN (21:30)
[2024-07-11] MEDS: SODIUM CHLORIDE 0.9% 1,000 ML IV SCH (21:30)
[2024-07-11] MEDS: MIDAZOLAM HCL 2MG/2ML 2ml VIAL (1mg/ml) IV ONE (21:30)
[2024-07-11] MEDS: SODIUM CHLORIDE 0.9% 4,000 ML IV ONE (21:30)
[2024-07-11] MEDS: fentaNYL CITRATE 100 MCG/2 ML VL IV ONE (21:30)
[2024-07-11 21:35] VITALS: PULSE 165; RESP 24; O2SAT 100
[2024-07-11] MEDS: InsuLIN REG 1unit/0.01ml Soln (100units/ml) IV ONE (21:37)
--- NOTE | 2024-07-11 21:41 | ED.PDOC ---
History of Present Illness HPI Comments 34 y/o M, Hx of DM, DKA, HLD, HTN, liver disease, seizures, and EtOH abuse, is BIBA for c/o shortness of breath and arrhythmia, today. Per EMS report, patient, initially, called for c/o difficulty breathing that he has been having, intermittently, for the past 2x days, with most recent onset that began, sudd enly and unprovoked, this evening, 30x minutes prior to ED arrival. On scene, patient was noted to have been found with in SVT at a rate of 180, with no prior Hx of SVT in the past. At time of assessment, patient reports no recent sick contact, substance use, or any additional relevant or pertinent Hx. He denies any chest pain, nausea, vomiting, fever, chills, or other associated symptoms or modifiers at this time. Time Seen by MD: 21:10 Primary Care Provider: ESTRADA Reviewed Notes: Nurses Notes, Cephalometric Analyst Notes, Medications, Allergies Allergies: Coded Allergies: NO KNOWN ALLERGIES (Unverified , 06/03/22) Home Meds Active Scripts Insulin Lispro (Human) (Humalog) 100 Unit/Ml Inj, 10 UNIT SC TID, #1000 UNITS Prov:VIJAY FELIX MD 03/29/24 Insulin Glargine (Lantus) 100 Unit/Ml Inj, 25 UNIT SC DAILY, #1000 UNITS Prov:VIJAY FELIX MD 03/29/24 Pantoprazole Sodium Sesquihydr (Pantoprazole Sodium) 40 Mg Tab, 40 MG PO DAILY@0600 for 30 Days, #30 TAB Prov:RIZWANA RODRIGUEZ RESIDENT 12/03/23 Insulin Aspart (Insulin Aspart Flexpen) 100 Unit/Ml Inj, 100 UNIT SC ACHS for 60 Days, #3 INJ Blood sugar 150 to 250: 2 units Blood sugar 251 to 350: 4 units Blood sugar 351 to 400: 6 units Blood sugar 401 and above: 8 units and go to emergency room Prov:COREEN VILLALTA NP 07/05/23 Insulin Glargine (Basaglar Kwikpen) 100 Unit/Ml Inj, 20 UNIT SC DAILY for 30 Days, #5 UNITS Prov:VERENA BAUTISTA MD 11/07/21 Insulin Regular (Human) (Novolin R) 100 Unit/Ml Inj, 1-15 UNITS SC Q6HPRN PRN for 30 Days, #5 INJ 0 Refills take 1-15 units Q6hr ACHS per sliding scale Prov:VERENA BAUTISTA MD 11/07/21 Atorvastatin Calcium (Lipitor) 20 Mg Tab, 1 TAB PO DAILY, #30 TAB Prov:VERENA BAUTISTA MD 11/07/21 Information Source: Patient, Emergency Med Personnel Mode of Arrival: EMS Severity: Moderate Timing: Hours Duration: Since onset Prehospital treatment: 12 Lead EKG, 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 Professional 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, Other Past Medical History PAST MEDICAL HISTORY: DM, High Lipids, HTN, Liver, Seizures Past Medical History (Other): DKA Surgical History: Denies all surgeries Family History Family History: Reviewed,noncontributory to illness Social History Smoker: Non-Smoker Alcohol: Heavy Drugs: Denies Drug Use Lives In: Home Respiratory: reports: shortness of breath All Other Systems: Reviewed and Negative (negative unless otherwise stated above or in HPI) Physical Exam General Appearance: Normal, Severe Distress HEENT: Normal ENT Inspection, Pharynx Normal, TMs Normal, Other (dry mucus membranes ) Neck: Full Range of Motion, Non-Tender, Normal, Normal Inspection Respiratory: Chest Non-Tender, Lungs Clear, No Accessory Muscle Use, No Respiratory Distress, Normal Breath Sounds Cardiovascular: No Edema, No JVD, No Murmur, No Gallop, Normal Peripheral Pulses, Regular Rate/Rhythm Breast Exam: Deferred Gastrointestinal: No Organomegaly, Non Tender, No Pulsatile Mass, Normal Bowel Sounds, Soft Genitalia: Deferred Pelvic: Deferred Rectal: Deferred Extremities: No calf tenderness, Normal capillary refill, Normal inspection, Normal range of motion, Non-tender, No pedal edema Musculoskeletal : Apperance: Normal Neurologic: Alert, durable medical equipment repairer II-XII nml as Tested, No Motor Deficits, Normal Affect, Normal Mood, No Sensory Deficits Cerebellar Function: Normal Reflexes: Normal Skin: Dry, Normal Color, Warm Lymphatic: No Adenopathy Was a procedure done? 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: Attending Physician Indication: Inability to obtain IV Room prepared for procedure: Yes Mys[employer] D[employer] performed hand hygien: Yes Maximal sterile barrier precau: Mask/Eye shield, Sterile gown, Cap, Sterlie gloves, Large sterlie drape Skin Preparation: Chlorhexidine gluconate Skin preparation completely dr: Yes Insertion site: Right Central line catheter type: [id number] dialysis Number of lumens: 3 Central line exchanged over a: Yes Antiseptic ointment applied to: Yes Post Assessment: Chest X-Ray, Pneumothorax, No Pneumothorax Informed consent obtained: Yes Risks/benefits/alt described: Yes EKG EKG : Pulse Rate (adult): 169 [place]: Normal Cardiac Rhythm: Afib, PVC's (paired ventricular premature complexes ) Block: None Hypertrophy: None ST: Normal Differential Dx Considerations may include: SVT, arrhythmia, URI, MO, PE, viral syndrome, DKA X-Ray, Labs, Meds, VS Vital Signs Date Time Temp Pulse Resp B/P (MAP) Pulse Ox O2 Delivery O2 Flow Rate FiO2 07/11/24 21:40 169 07/11/24 21:15 95.8 182 30 52/41 (45) 100 Lab Test 07/11/24 21:40 07/11/24 21:25 Range/Units Blood Gas Specimen Type Arterial Blood Gas Sample Site Right radial Blood Gas Patient Temperature 37.0 Arterial Blood Date Drawn Arterial Blood pH 7.094 *L 7.350-7.450 Arterial Blood Partial Pressure CO2 < 12.6 *L 35.0-48.0 mmHg Arterial Blood Partial Pressure O2 133.9 H 83.0-108.0 mmHg Arterial Blood Oxygen Saturation 97.2 94.0-98.0 % Arterial Blood Oxyhemoglobin 96.2 94.0-98.0 % Arterial Blood Carboxyhemoglobin 0.3 L 0.5-1.5 % Arterial Blood Methemoglobin 0.7 0.0-1.5 % Baljit Test Modified Blood Gas Total Hemoglobin 12.90 L 13.5-17.5 g/dL Blood Gas Modality Room air FiO2 % 21.0 Blood Gas Comments Pco2 out of amr Blood Gas Critical Value Read Back Yes Blood Gas Notified Whom efren Lutz Blood Gas Notified Time [id number] Blood Gas Notified By Marielena yoo, hermelindo White Blood Count 21.0 H 4.4-10.8 10^3/uL Red Blood Count 4.66 4.5-5.90 10^6/uL Hemoglobin 13.8 13.5-17.5 g/dL Hematocrit 43.1 41.0-53.0 % Mean Corpuscular Volume 92.5 80.0-100.0 fL Mean Corpuscular Hemoglobin 29.6 28.0-32.0 pg Mean Corpuscular Hemoglobin Concent 32.0 32.0-36.0 g/dL Red Cell Distribution Width 14.6 H 11.8-14.3 % Platelet Count 164 140-450 10^3/uL Mean Platelet Volume 8.1 6.9-10.8 fL Neutrophils (%) (Auto) 91.6 H 37.0-80.0 % Lymphocytes (%) (Auto) 1.6 L 10.0-50.0 % Monocytes (%) (Auto) 5.4 0.0-12.0 % Eosinophils (%) (Auto) 0.0 0.0-7.0 % Basophils (%) (Auto) 1.4 0.0-2.0 % Neutrophils # (Auto) 19.2 H 1.6-8.6 10 ^3/uL Lymphocytes # (Auto) 0.3 L 0.4-5.4 10 ^3/uL Monocytes # (Auto) 1.1 0-1.3 10 ^3/uL Eosinophils # (Auto) 0 0-0.8 10 ^3/uL Basophils # (Auto) 0.3 H 0-0.2 10 ^3/uL Nucleated Red Blood Cells 0.0 % Sodium Level 120 L 136-145 mmol/L Potassium Level 3.6 3.5-5.1 mmol/L Chloride Level 74 L 98-107 mmol/L Carbon Dioxide Level < 10 *L 20-31 mmol/L Anion Gap 36.40785 H 5-15 Blood Urea Nitrogen 71 H 9-23 mg/dL Creatinine 3.59 H 0.700-1.30 mg/dL Glomerular Filtration Rate Calc 22 >90 mL/min BUN/Creatinine Ratio 19.8 10.0-20.0 Serum Glucose 1029 *H 74-106 mg/dL Lactic Acid Level 3.2 *H 0.4-2.0 mmol/L Calcium Level 7.7 L 8.7-10.4 mg/dL Magnesium Level Pending Total Bilirubin 0.7 0.2-1.0 mg/dL Aspartate Amino Transferase (AST) 82 H 13-40 U/L Alanine Aminotransferase (ALT) 354 H 7-40 U/L Alkaline Phosphatase 128 H 46-116 U/L Total Protein 6.8 5.7-8.2 g/dL Albumin 4.0 3.2-4.8 g/dL Beta-Hydroxybutyric Acid > 4.500 H < 0.4 mmol/L Plasma/Serum Blood Alcohol < 3.0 <10 mg/dL Current Medications Medications (Trade) Dose Ordered Sig/Lazaro Route Start Time Stop Time Status Last Admin Insulin Human Regular (InsuLIN R) 20 units ONCE ONCE IV 07/11/24 21:30 07/11/24 21:31 DC 07/11/24 21:37 Sodium Chloride 4,000 ml @ 1,000 mls/hr Q4H ONCE IV 07/11/24 21:30 07/12/24 01:29 07/11/24 21:30 Ceftriaxone Sodium 50 ml @ 100 mls/hr ONCE ONCE IV 07/11/24 21:45 07/11/24 22:14 DC 07/11/24 21:55 Lidocaine HCl 5 ml ONCE ONCE IJ 07/11/24 22:15 07/11/24 22:16 DC 07/11/24 22:08 The bicarb on ABG was not readable. Glucose is 1029. Lactic acid is 3.2. Beta hydroxybutyrate acid is 4.5 pain The patient was given a 20 unit that is bolus of insulin and place on insulin drip. Patient was also given 4 L normal saline and 1 g of Rocephin for sepsis. The patient will be admitted to the hospitalist for further evaluation and care. Time of 1ST Reevaluation: 21:40 Reevaluation 1ST: Unchanged Patient Education/Counseling: Diagnosis, Treatment Family Education/Counseling: No Family Present Departure 1 Departure Time of Disposition: 22:24 Impression: Primary Impression: DKA (diabetic ketoacidoses) Additional Impressions: Sepsis Qualified Codes: A41.9 - Sepsis, unspecified organism Dehydration Disposition: ADMITTED INPATIENT Admit to: ICU Condition: Critical Critical Care Note Critical Care Time?: Yes (1 hr-critical care time only) Stability Stability form required: No Heart Score Heart Score: Heart Score Response (Comments) Value History Slightly Suspicious 0 EKG Repolarization Disturb 1 Age <45 0 Risk Factors 1 or 2 risk factors 1 Troponin N/A 0 Total 2 I personally scribed for JAG MAYORGA MD ([email or web address]) on 07/11/24 at 21:40. Electronically submitted by Alex Tobin ([email or web address]). I personally scribed for JAG MAYORGA MD ([email or web address]) on 07/11/24 at 22:25. Electronically submitted by Alex Tobin ([email or web address]). I personally scribed for JAG MAYORGA MD ([email or web address]) on 07/11/24 at 22:33. Electronically submitted by Alex Tobin ([email or web address]). I personally scribed for JAG MAYORGA MD ([email or web address]) on 07/11/24 at 22:34. Electronically submitted by Alex Tobin ([email or web address]). JAG MAYORGA MD Jul 11, 2024 21:40
[2024-07-11 21:52] LABS: Basophils # (auto) 0.3 10 ^3/uL (0-0.2); Basophils % (auto) 1.4 % (0.0-2.0); Eosinophils # (auto) 0 10 ^3/uL (0-0.8); Hematocrit 43.1 % (41.0-53.0); Hemoglobin 13.8 g/dL (13.5-17.5); Lymphocytes # (auto) 0.3 10 ^3/uL (0.4-5.4); Lymphocytes % (auto) 1.6 % (10.0-50.0); Mean Corpuscular Hemoglobin 29.6 pg (28.0-32.0); Mean Corpuscular Volume 92.5 fL (80.0-100.0); Monocytes # (auto) 1.1 10 ^3/uL (0-1.3); Monocytes % (auto) 5.4 % (0.0-12.0); Neutrophils # (auto) 19.2 10 ^3/uL (1.6-8.6); Neutrophils % (auto) 91.6 % (37.0-80.0); Platelet Count (auto) 164 10^3/uL (140-450); Red Blood Cells 4.66 10^6/uL (4.5-5.90); Red Cell Distribution Width 14.6 % (11.8-14.3)
[2024-07-11] MEDS: cefTRIAXone 1GM/50ML D5W 50 ML IV ONE (21:55)
[2024-07-11 22:06] LABS: Anion Gap 36.00001 (5-15); BUN/Creatinine Ratio 19.8 (10.0-20.0); Potassium 3.6 mmol/L (3.5-5.1)
[2024-07-11 22:07] LABS: Bilirubin, Total 0.7 mg/dL (0.2-1.0); Total Protein 6.8 g/dL (5.7-8.2)
[2024-07-11] MEDS: LIDOCAINE 2%HCL (LOCAL ANESTH.) INJ 10ml MDV ONE (22:07)
[2024-07-11] MEDS: LIDOCAINE HCL 2 % INJ 2ML MPF IJ ONE (22:08)
[2024-07-11 22:09] LABS: Lactic Acid w/Reflex 3.2 mmol/L (0.4-2.0)
[2024-07-11 22:16] LABS: Alanine Aminotransferase 354 U/L (7-40); Alkaline Phosphatase 128 U/L (46-116); Aspartate Aminotransferase 82 U/L (13-40); Blood Alcohol < 3.0 mg/dL (<10); Blood Urea Nitrogen 71 mg/dL (9-23); Calcium 7.7 mg/dL (8.7-10.4); Chloride 74 mmol/L (98-107); Sodium 120 mmol/L (136-145)
[2024-07-11 22:18] LABS: Carbon Dioxide < 10 mmol/L (20-31); Glucose 1029 mg/dL (74-106)
[2024-07-11] MEDS ORDERED: NOREPINEPHRINE 8 MG/250ML KIT 250 ML IV SCH (22:30)
[2024-07-11] MEDS: ACCU-CHEK COMFORT CURVE STRIP VI SCH (22:30)
[2024-07-11] MEDS: SODIUM BICARB 8.4% 50Meq/50ml SYR Vial IV ONE (22:39)
[2024-07-11] MEDS: NOREPINEPHRINE 8 MG/250ML KIT 250 ML IV SCH (22:41)
[2024-07-11] MEDS: INSULIN LANTUS (GLARGINE) 1 /0.01ml (100units/ml) SC ONE (23:09)
[2024-07-11] MEDS: POTASSIUM CHL 20MEQ/100ML 100 ML IV SCH (23:10)
[2024-07-11] MEDS: PHENYLEPHRINE IV 250 ML IV SCH (23:11)
[2024-07-11] MEDS: DIGOXIN (250MCG/ML) 2 ML AMPULE IV ONE (23:15)
[2024-07-11] MEDS: INSULIN DRIP 100 UNIT/100ML 100 ML IV SCH (23:24)
[2024-07-11] MEDS ORDERED: VANCOMYCIN PER PHARMACY 0 MG IV SCH (23:45)
[2024-07-12] MEDS ORDERED: HYDROcodone-ACET 5/325MG TAB PO PRN
--- NOTE | 2024-07-12 00:12 | DVH ---
CHEST RADIOGRAPH Indication: evaluate lung parenchyma Technique: Single frontal view of the chest was obtained Comparison: XY CHEST PORTABLE on DOS: 11/30/23, XY CHEST PORTABLE on DOS: 07/03/23, CHEST XRAY 1 VIEW on DOS: 08/06/22 Findings/ IMPRESSION: Limited evaluation due to overlying defibrillator pads in the left lower lung zone. No active cardiop ulmonary disease.
[2024-07-12] MEDS: SODIUM CHLORIDE 0.9% 1,000 ML IV ONE ×2 (00:15→02:00)
[2024-07-12] MEDS ORDERED: SODIUM BICARB 8.4% 50Meq/50ml SYR Vial IV ONE (00:30)
[2024-07-12 00:32] LABS: Cholesterol 249 mg/dL (< 200); HDL Cholesterol 61 mg/dL (40-59); Triglycerides 701 mg/dL (< 150)
--- NOTE | 2024-07-12 00:43 | DVHHPRES ---
History of Present Illness Resident Creating Document: EMMANUEL CONWAY History of Present Illness This is a 34-year-old male with past medical history of hypertension, type 1 diabetes mellitus, dyslipidemia, liver disease, ethanol abuse, previous episodes of DKA who presented to the ED with a rapid shallow breathing, nausea vomiting and slight abdominal tenderness. The patient was initially drowsy but alert responding to questions pertinently. Per EMS, the patient was having difficulty breathing at home and was found to have SVT with a high rate at 180. Upon ad mission and my examination the patient was drowsy answering questions, denied recent drug consumption, alcohol or sick contacts. The patient stated that last drink was two days ago. Initial labs showed a WBC of 21, hemoglobin 13.8, hematocrit 43.1 and platelets 164. CMP showed sodium of 120 (corrected Na 134), potassium 3.6, bicarb <10, BUN and creatinine were 71 and 3.59 respectively. Blood glucose was initially 1029. We performed stat ABG which showed a pH of 7.0, bicarbonate was undetectable (<7), pCO2 12.6, PaO2 133.9 consistent with a severe metabolic acidosis with metabolic compensation (unable to calculated due to no bicarb readings). Patient was started in a total of 4 L of IV fluids NS 0.9% in the 1st 3-4 hours. Patient was given IV insulin bolus 20 units in the ED and was started on insulin drip protocol. At that time, patient was on AFib with RVR at a rate of 150s with blood pressure 70/40mmhg. The patient was initially started on low-dose norepinephrine and transitioned to phenylephrine w hile IV fluid resuscitation was been performed. Once patient became slightly euvolemic we titrated down vasopressors and heart rate and rhythm came back to sinus tachycardia once the acidosis started to correct. Electrolytes were monitored constantly every 2 hours and patient was admitted for further assessment and management. The patient also admitted not using insulin in the p ast couple of days. Home medications: Basal insulin (Lantus) 20 units at bedside. Patient states that does not follow a basal bolus regimen. He does a sliding scale insulin which do not follow appropriately but do inject the 20 units of Lantus daily. Cardiovascular: HTN, hyperipidemia Endocrine: Diabetes Past Surgical History: None Family History: None Smoke: No ALCOHOL: heavy Drugs: None Lives: with Family Domestic Violence: Neg Review of Systems Constitutional: No: Fever, Chills, Sweats, Weakness, Malaise, Other Eyes: No: Pain, Vision change, Conjunctivae inflammation, Eyelid inflammation, Other, Redness ENT: No: Ear pain, Ear discharge, Nose pain, Nose discharge, Nose congestion, Mouth pain, Mouth swelling, Throat pain, Throat swelling, Other Respiratory: Shortness of breath; No: Cough, Dry, SOB with excertion, Wheezing, Hemoptysis, Pleuritic Pain, Sputum, Wheezing, Other Cardiovascular: No: Chest Pain, Palpitations, Orthopnea, Paroxysmal Noc. Dyspnea, Edema, Lt Headedness, Other Gastrointestinal: Nausea, Vomiting, Abdominal Pain; No: Diarrhea, Constipation, Melena, Hematochezia, Other Genitourinary: No Dysuria, No Frequency, No Incontinence, No Hematuria, No Retention, No Other Musculoskeletal: No: other, neck pain, shoulder pain, arm pain, back pain, hand pain, leg pain, foot pain Skin: No: Rash, Lesions, Jaundice, Bruising, Other Neurological: No: Weakness, Numbness, Incoordination, Change in speech, Confusion, Seizures, Other Allergies: Coded Allergies: NO KNOWN ALLERGIES (Unverified , 06/03/22) Medications Current Medications Medications Dose Ordered Sig/Lazaro Route Start Time Stop Time Status Last Admin Dose Admin Sodium Chloride 1,000 ml @ 500 mls/hr Q2H IV 07/11/24 21:30 07/12/24 01:29 Sodium Chloride 1,000 ml @ 250 mls/hr Q4H IV 07/12/24 01:30 07/12/24 03:29 Sodium Chloride 1,000 ml @ 150 mls/hr Q6H40M IV 07/12/24 03:30 Insulin Human (Reg)/Sodium Chloride 100 ml @ 0.5 mls/hr Q24H IV 07/11/24 21:30 Dextrose 50 ml UD PRN IV 07/11/24 21:30 Diagnostic Test (Pha) 1 strip Q90MIN 07/11/24 22:30 Insulin Glargine 15 units DAILY SC 07/12/24 10:00 Potassium Chloride 100 ml @ 50 mls/hr Q2H IV 07/11/24 22:30 07/12/24 02:29 07/11/24 23:10 50 MLS/HR Norepinephrine Bitartrate 250 ml @ 3.75 mls/hr Q24H IV 07/11/24 22:30 07/11/24 22:41 3.75 MLS/HR Phenylephrine HCl 250 ml @ 30 mls/hr Q8H20M IV 07/11/24 23:00 07/11/24 23:11 30 MLS/HR Exam Vital Signs Vital Signs Date Time Temp Pulse Resp B/P (MAP) Pulse Ox O2 Delivery O2 Flow Rate FiO2 07/11/24 23:11 89/41 07/11/24 21:40 169 07/11/24 21:15 95.8 30 100 General Appearance: Alert, Oriented X3, Cooperative, severe distress HEENT: Atraumatic, PERRLA, EOMI, Mucous membr. moist/pink Respiratory: Clear to auscultation, Normal air movement Cardiovascular: Other (PATIENT WAS IN AFIB WITH RVR) Abdominal: Normal bowel sounds, Soft, No tenderness, No hepatospenomegaly, No masses Extremities: No clubbing, No cyanosis, No edema, Normal pulses, No tenderness/swelling Skin: No rashes, No breakdown, No significant lesion Neuro: Normal gait, Normal speech, Strength at 5/5 X4 ext, Normal tone, Sensation intact, Cranial nerves 3-12 NL, Reflexes 2+ Psych/Mental Status: Mental status NL, Mood NL Labs/Xrays Labs Test 07/11/24 21:40 07/11/24 21:25 Range/Units Blood Gas Specimen Type Arterial Blood Gas Sample Site Right radial Blood Gas Patient Temperature 37.0 Arterial Blood Date Drawn [id number] Arterial Blood pH 7.094 *L 7.350-7.450 Arterial Blood Partial Pressure CO2 < 12.6 *L 35.0-48.0 mmHg Arterial Blood Partial Pressure O2 133.9 H 83.0-108.0 mmHg Arterial Blood Oxygen Saturation 97.2 94.0-98.0 % Arterial Blood Oxyhemoglobin 96.2 94.0-98.0 % Arterial Blood Carboxyhemoglobin 0.3 L 0.5-1.5 % Arterial Blood Methemoglobin 0.7 0.0-1.5 % Baljit Test Modified Blood Gas Total Hemoglobin 12.90 L 13.5-17.5 g/dL Blood Gas Modality Room air FiO2 % 21.0 Blood Gas Comments Pco2 out of amr Blood Gas Critical Value Read Back Yes Blood Gas Notified Whom efren Lutz Blood Gas Notified Time [id number] Blood Gas Notified By Marielena yoo, hermelindo White Blood Count 21.0 H 4.4-10.8 10^3/uL Red Blood Count 4.66 4.5-5.90 10^6/uL Hemoglobin 13.8 13.5-17.5 g/dL Hematocrit 43.1 41.0-53.0 % Mean Corpuscular Volume 92.5 80.0-100.0 fL Mean Corpuscular Hemoglobin 29.6 28.0-32.0 pg Mean Corpuscular Hemoglobin Concent 32.0 32.0-36.0 g/dL Red Cell Distribution Width 14.6 H 11.8-14.3 % Platelet Count 164 140-450 10^3/uL Mean Platelet Volume 8.1 6.9-10.8 fL Neutrophils (%) (Auto) 91.6 H 37.0-80.0 % Lymphocytes (%) (Auto) 1.6 L 10.0-50.0 % Monocytes (%) (Auto) 5.4 0.0-12.0 % Eosinophils (%) (Auto) 0.0 0.0-7.0 % Basophils (%) (Auto) 1.4 0.0-2.0 % Neutrophils # (Auto) 19.2 H 1.6-8.6 10 ^3/uL Lymphocytes # (Auto) 0.3 L 0.4-5.4 10 ^3/uL Monocytes # (Auto) 1.1 0-1.3 10 ^3/uL Eosinophils # (Auto) 0 0-0.8 10 ^3/uL Basophils # (Auto) 0.3 H 0-0.2 10 ^3/uL Nucleated Red Blood Cells 0.0 % Sodium Level 120 L 136-145 mmol/L Potassium Level 3.6 3.5-5.1 mmol/L Chloride Level 74 L 98-107 mmol/L Carbon Dioxide Level < 10 *L 20-31 mmol/L Anion Gap 36.15262 H 5-15 Blood Urea Nitrogen 71 H 9-23 mg/dL Creatinine 3.59 H 0.700-1.30 mg/dL Glomerular Filtration Rate Calc 22 >90 mL/min BUN/Creatinine Ratio 19.8 10.0-20.0 Serum Glucose 1029 *H 74-106 mg/dL Lactic Acid Level 3.2 *H 0.4-2.0 mmol/L Calcium Level 7.7 L 8.7-10.4 mg/dL Magnesium Level 2.7 H 1.6-2.6 mg/dL Total Bilirubin 0.7 0.2-1.0 mg/dL Aspartate Amino Transferase (AST) 82 H 13-40 U/L Alanine Aminotransferase (ALT) 354 H 7-40 U/L Alkaline Phosphatase 128 H 46-116 U/L Total Protein 6.8 5.7-8.2 g/dL Albumin 4.0 3.2-4.8 g/dL Beta-Hydroxybutyric Acid > 4.500 H < 0.4 mmol/L Plasma/Serum Blood Alcohol < 3.0 <10 mg/dL Assessment/Plan Assessment/Plan Assessment/Plan Septic shock in the setting of DKA Severe dehydration DKA Leukocytosis -IV fluids 4L of fluids given -Ordered another 1L -Insulin bolus given 0.1/kg -Insulin drip protocol started (0.1U/kg/hr) -IV potassium 40MeqL, gIVE 30mEq to each bag of fluids to keep K between 4-5 -patient on low dose of Norepi and phenylephrine -Na 120 likely pseudohyponatremia. Corrected sodium 134 -IV bicarb bolus given in the ED -Initial EKG showed Afib with RVR -Initial ABG showed pH of 7.09, pCO2 less than 12.6, HC03 undetectable (LOW), PaO2 133.9, anion gap was 36, BG was 1029 -Start IV vanco and meropenem -Repeat CMP, ABG and monitor electrolytes closely -Order serum osmolality -Order urine osmolality -Order urine Na Afib with RVR likely due to DKA/electrolyte abn/cathecolamine surge -Digoxin was given in the ED -CHADSVASC score 2 points, HAS BLED score 2 points -Therapeutic lovenox -IV fluids -correct underlying cause -Currently on sinus tachycardia, once acidemia and dehydration improved -Monitor closely Pseudo hyponatremia -serum Na 120, corrected Na 134 KEILA likely due to vasomotornephropathy (septic shock and dehydration) -initial bone and creatinine were 71 and 3.59 respectively -IV fluids -monitor kidney function Dyslipidemia -Ordered lipid panel -Start statins once patient is stable Primary hypertension -Currently hypotensive requiring pressors -monitor heart rate and blood pressure closely Goals of care discussed with the patient at bedside and family by phone (Sister and mother) for 25min, FULL CODE Plan discussed with Dr. Keating critical care time 90 mins Plan discussed with: Patient, Other (sister and mother viua PHONE for 25 min) My Orders Orders - EMMANUEL CONWAY Procedure Category Date Status Time Potassium Chl PHA 07/11/24 In Process 20meq/100ml 22:30 Drug Screen LAB 07/11/24 Logged 22:19 Insert/Manage Urinary JAYSHREE 07/11/24 In Process Catheter 22:20 Norepinephrine 8 PHA 07/11/24 In Process Mg/250ml Kit 22:30 Date of Service: Jul 11, 2024 Billing Provider: MARY KEATING MD Common Visit Codes: 93755-[id number] CARE 30-74 MIN, 24916-[id number] CARE-EACH +30MIN EMMANUEL CONWAY RESIDENT Jul 12, 2024 00:43 MARY KEATING MD Jul 12, 2024 20:09
[2024-07-12 01:25] LABS: Anion Gap 31 (5-15); Magnesium 2.4 mg/dL (1.6-2.6); Sodium 140 mmol/L (136-145)
[2024-07-12 01:26] LABS: Albumin 3.7 g/dL (3.2-4.8); Bilirubin, Total 0.7 mg/dL (0.2-1.0); Total Protein 5.9 g/dL (5.7-8.2)
[2024-07-12] MEDS ORDERED: SODIUM BICARB 50mEq/50ml Vial 50 ML in SOD CHL 0.45% 1,000 ML IV ONE (01:30)
[2024-07-12 01:31] LABS: Urine Bacteria None Seen /hpf (None Seen)
[2024-07-12] MEDS: SODIUM CHLORIDE 0.9% 1,000 ML IV SCH (01:32)
[2024-07-12 01:33] LABS: Alanine Aminotransferase 299 U/L (7-40); Alkaline Phosphatase 119 U/L (46-116); Aspartate Aminotransferase 70 U/L (13-40); Calcium 6.8 mg/dL (8.7-10.4); Carbon Dioxide 11 mmol/L (20-31); Chloride 98 mmol/L (98-107); Glucose 533 mg/dL (74-106); Potassium 2.6 mmol/L (3.5-5.1)
[2024-07-12 01:42] LABS: BUN/Creatinine Ratio 22.4 (10.0-20.0); Blood Urea Nitrogen 57 mg/dL (9-23)
[2024-07-12 01:45] LABS: Urine Blood Negative /uL (Negative); Urine Clarity Clear (Clear); Urine Color Light-Yellow (Yellow); Urine Protein, UAD TRACE (Negative); Urine Specific Gravity 1.017 (1.001-1.035); Urine Squamous Epithelial Cell FEW /hpf (<5); Urine Urobilinogen Normal (Negative); Urine WBC 1 /hpf (0 - 3)
[2024-07-12] MEDS: VANCOMYCIN 1GM/250ML KIT 250 ML IV ONE (01:52)
[2024-07-12 01:56] LABS: Amphetamine Screen, Urine Neg (NEGATIVE); Barbiturate Scree,Urine Neg (NEGATIVE); Opiate Scree,Urine Neg (NEGATIVE); Phencyclidine Screen, Urine Neg (NEGATIVE)
[2024-07-12 01:57] LABS: Benzodiazephine Screen, Urine Neg (NEGATIVE); Cannabinoid Screen, Urine Neg (NEGATIVE); Cocaine Screen, Urine Neg (NEGATIVE)
[2024-07-12 03:08] LABS: Protein, Urine 40.5 mg/dL (1-14)
[2024-07-12] MEDS: SOD CHL 0.45% 1,000 ML IV SCH (03:15)
[2024-07-12] MEDS ORDERED: SODIUM CHLORIDE 0.9% 1,000 ML IV SCH (03:30)
[2024-07-12 04:03] LABS: Albumin 3.4 g/dL (3.2-4.8); Alkaline Phosphatase 104 U/L (46-116); Anion Gap 21 (5-15); BUN/Creatinine Ratio 24.4 (10.0-20.0); Bilirubin, Total 0.8 mg/dL (0.2-1.0); Chloride 107 mmol/L (98-107)
[2024-07-12 04:35] LABS: Alanine Aminotransferase 269 U/L (7-40); Aspartate Aminotransferase 89 U/L (13-40); Blood Urea Nitrogen 48 mg/dL (9-23); Calcium 7.2 mg/dL (8.7-10.4); Carbon Dioxide 18 mmol/L (20-31); Glucose 332 mg/dL (74-106); Potassium 2.5 mmol/L (3.5-5.1); Sodium 146 mmol/L (136-145); Total Protein 5.6 g/dL (5.7-8.2)
[2024-07-12] MEDS: POTASSIUM CHL 20MEQ/100ML 100 ML IV SCH ×3 (05:43→16:59)
[2024-07-12 07:30] LABS: Anion Gap 16 (5-15); Carbon Dioxide 23 mmol/L (20-31)
[2024-07-12 07:36] LABS: BUN/Creatinine Ratio 30.4 (10.0-20.0)
[2024-07-12 07:39] LABS: Basophils # (auto) 0 10 ^3/uL (0-0.2); Basophils % (auto) 0.1 % (0.0-2.0); Eosinophils # (auto) 0 10 ^3/uL (0-0.8); Hematocrit 35.6 % (41.0-53.0); Hemoglobin 12.4 g/dL (13.5-17.5); Lymphocytes # (auto) 0.2 10 ^3/uL (0.4-5.4); Mean Corpuscular Hemoglobin 29.3 pg (28.0-32.0); Mean Corpuscular Hgb Conc. 34.8 g/dL (32.0-36.0); Mean Corpuscular Volume 84.4 fL (80.0-100.0); Monocytes # (auto) 0.9 10 ^3/uL (0-1.3); Monocytes % (auto) 5.6 % (0.0-12.0); Neutrophils # (auto) 15.7 10 ^3/uL (1.6-8.6); Neutrophils % (auto) 93.3 % (37.0-80.0); Nucleated Red Blood Cells % 0.3 %; Platelet Count (auto) 93 10^3/uL (140-450); Red Blood Cells 4.22 10^6/uL (4.5-5.90); Red Cell Distribution Width 14.9 % (11.8-14.3); White Blood Cell 16.9 10^3/uL (4.4-10.8)
[2024-07-12 07:40] VITALS: PULSE 120; RESP 14; O2SAT 98
[2024-07-12 07:42] LABS: Blood Urea Nitrogen 49 mg/dL (9-23); Calcium 7.6 mg/dL (8.7-10.4); Chloride 109 mmol/L (98-107); Glucose 228 mg/dL (74-106); Sodium 148 mmol/L (136-145)
[2024-07-12] MEDS ORDERED: POTASSIUM CHL 20MEQ/100ML 100 ML IV SCH (08:15)
[2024-07-12 08:19] LABS: Base Excess -2.4 mmol/L (-2.0-3.0)
[2024-07-12] MEDS ORDERED: D5W/SOD CHL 0.45%/KCL 20MEQ 1,000 ML IV SCH (09:00)
--- NOTE | 2024-07-12 09:50 | DVHINCON2 ---
Date Seen: Jul 12, 2024 Referring Physician MD Steven Reason for Consultation A-fib with RVR History of Present Illness This is a 34-year-old male who presented to the emergency room via EMS with a chief complaint of shortness of breath since . The patient complains of progressive shortness of breath associated with dizziness, epigastric pain, and nausea prompting him to call 911. Per patient, he stopped insulin therapy and admitted to alcohol use since 07/08/2024. Upon EMS arrival the patient was found in a supraventricular tachycardia rhythm in the 180s bpm and found hypotensive with a BSL read as "high." He underwent a subsequent 12-lead electrocardiogram within the ED revealing an atrial fibrillation rhythm with rapid ventricular rate at 169 bpm. At time of assessment, the patient was found in a sinus tachycardia rhythm in the 110s bpm and denying any further symptoms including chest pain, palpitations, shortness or breath, or dizziness. Significant medical history includes insulin-dependent type 1 diabetes, hypertension, dyslipidemia, esophageal varices, and alcoholism. Past Medical History Past medical history reviewed. No other significant than mentioned above. Past Surgical History Denies the use of illicit drugs or tobacco use. Admits to daily alcohol use. Family History: Asthma G8 MOTHER FH: cancer G8 MOTHER Hypercholesterolemia G8 MOTHER Hypertension G8 MOTHER Family History Family history reviewed. Social History Denies the use of illicit drugs or tobacco use. Admits to daily alcohol use. Allergies: Coded Allergies: NO KNOWN ALLERGIES (Unverified , 06/03/22) Home Meds Active Scripts Insulin Lispro (Human) (Humalog) 100 Unit/Ml Inj, 10 UNIT SC TID, #1000 UNITS Prov:VIJAY FELIX MD 03/29/24 Insulin Glargine (Lantus) 100 Unit/Ml Inj, 25 UNIT SC DAILY, #1000 UNITS Prov:VIJAY FELIX MD 03/29/24 Pantoprazole Sodium Sesquihydr (Pantoprazole Sodium) 40 Mg Tab, 40 MG PO DAILY@0600 for 30 Days, #30 TAB Prov:RIZWANA RODRIGUEZ 12/03/23 Insulin Aspart (Insulin Aspart Flexpen) 100 Unit/Ml Inj, 100 UNIT SC ACHS for 60 Days, #3 INJ Blood sugar 150 to 250: 2 units Blood sugar 251 to 350: 4 units Blood sugar 351 to 400: 6 units Blood sugar 401 and above: 8 units and go to emergency room Prov:COREEN VILLALTA NP 07/05/23 Insulin Glargine (Basaglar Kwikpen) 100 Unit/Ml Inj, 20 UNIT SC DAILY for 30 Days, #5 UNITS Prov:VERENA BAUTISTA MD 11/07/21 Insulin Regular (Human) (Novolin R) 100 Unit/Ml Inj, 1-15 UNITS SC Q6HPRN PRN fo r 30 Days, #5 INJ 0 Refills take 1-15 units Q6hr ACHS per sliding scale Prov:VERENA BAUTISTA MD 11/07/21 Atorvastatin Calcium (Lipitor) 20 Mg Tab, 1 TAB PO DAILY, #30 TAB Prov:VERENA BAUTISTA MD 11/07/21 Home Meds Home medications reviewed. Current Medications Current Medications Medications (Trade) Dose Ordered Sig/Lazaro Route PRN Reason Start Time Stop Time Status Last Admin Sodium Chloride 1,000 ml @ 500 mls/hr Q2H IV 07/11/24 21:30 07/12/24 01:29 DC 07/11/24 23:30 Sodium Chloride 1,000 ml @ 250 mls/hr Q4H IV 07/12/24 01:30 07/12/24 03:30 DC 07/12/24 01:32 Sodium Chloride 1,000 ml @ 150 mls/hr Q6H40M IV 07/12/24 03:30 07/12/24 01:54 DC Insulin Human (Reg)/Sodium Chloride 100 ml @ 0.5 mls/hr Q24H IV 07/11/24 21:30 07/11/24 23:24 Dextrose 50 ml UD PRN IV SEE CURRENT ALGORITHM or SCALE 07/11/24 21:30 Diagnostic Test (Pha) (Accu-Chek Comfort Curve T) 1 strip Q90MIN 07/11/24 22:30 07/12/24 09:30 Insulin Glargine (Lantus) 15 units DAILY SC 07/12/24 10:00 Norepinephrine Bitartrate 250 ml @ 3.75 mls/hr Q24H IV 07/11/24 22:30 07/11/24 22:22 DC Potassium Chloride 100 ml @ 50 mls/hr Q2H IV 07/11/24 22:30 07/12/24 02:29 DC 07/12/24 01:00 Norepinephrine Bitartrate 250 ml @ 3.75 mls/hr Q24H IV 07/11/24 22:30 07/11/24 22:41 Phenylephrine HCl 250 ml @ 30 mls/hr Q8H20M IV 07/11/24 23:00 07/11/24 23:11 Vancomycin HCl 0 ml @ 0 mls/hr UD IV 07/11/24 23:45 UNV Meropenem 50 ml @ 17 mls/hr Q12HR IV 07/12/24 10:00 Acetaminophen/ Hydrocodone Bitart (Edwards 5/325MG Tab) 1 tab Q4HP PRN PO MODERATE PAIN (4-6 PAIN SCALE) 07/12/24 00:00 Ondansetron HCl (Zofran) 4 mg Q4HP PRN IV NAUSEA / VOMITING 07/12/24 00:00 Enoxaparin Sodium (Lovenox) 40 mg DAILY SC 07/12/24 10:00 07/12/24 06:34 DC Potassium Chloride 100 ml @ 50 mls/hr Q2H IV 07/12/24 01:45 07/12/24 09:44 07/12/24 05:43 Atorvastatin Calcium (Lipitor) 40 mg HS PO 07/12/24 22:00 Sodium Chloride 1,000 ml @ 250 mls/hr Q4H IV 07/12/24 03:15 07/12/24 08:49 DC 07/12/24 05:00 Potassium Chloride 100 ml @ 50 mls/hr Q2H IV 07/12/24 05:00 07/12/24 08:59 DC Enoxaparin Sodium (Lovenox) 70 mg Q12HR SC 07/12/24 10:00 Potassium Chloride 100 ml @ 50 mls/hr Q2H IV 07/12/24 08:15 07/12/24 08:13 DC Potassium Chloride/Dextrose/ Sod Cl 1,000 ml @ 250 mls/hr Q4H IV 07/12/24 09:00 UNV Review of Systems Constitutional: No symptom reported Ears, Nose, & Throat: No symptom reported Eyes: No symptom reported Neurological: Dizziness Pulmonary/Respiratory: Shortness of breath Cardiovascular: No symptom reported Gastrointestinal: Nausea Genitourinary: No symptom reported Musculoskeletal: No symptom reported Skin: No symptom reported Psychiatric: No symptom reported Endocrine: No symptom reported Hemotologic/Lymphatic: No symptom reported Vital Signs Vital Signs Date Time Temp Pulse Resp B/P (MAP) Pulse Ox O2 Delivery O2 Flow Rate FiO2 07/12/24 08:00 121 16 119/64 (82) 99 07/12/24 07:45 97.7 97.7 07/12/24 07:40 Room Air* 0 21 Physical Exam General Appearance: Cooperative. Well developed. Well nourished. In no acute distress Head Exam: Normal inspection Neck Exam: Normal inspection. Non-tender. Normal alignment Pulmonary/Respiratory: Chest non-tender. Clear bilateral breath sounds Cardiovascular/Chest: Regular rate and rhythm. S1, S2. Sinus tachycardia rhythm. No murmurs. No JVD. Peripheral Pulses: 2+ Radial (R). 2+ Radial (L). 2+ Pedal (R). 2+ Pedal (L) Abdominal Exam: Normal bowel sounds. Soft. Nontender. No hepatospenomegaly. No masses Ankle Exam: Negative ankle edema Lower extremities: Negative lower extremity edema Neuro/Mental Status: A&O x4. Coherent Thoughts/Psych: Normal thought pattern. Appropriate mood and affect. Good judgement and insight Appearance: In no acute distress Skin Exam: Normal inspection. Normal color. Warm. Dry Labs/Diagnostic Data Labs Test 07/12/24 09:22 07/12/24 08:12 07/12/24 05:50 07/12/24 03:19 Range/Units Blood Gas Specimen Type Arterial Blood Gas Sample Site Left radial Blood Gas Patient Temperature 37.0 Arterial Blood Date Drawn [id number] Arterial Blood pH 7.445 7.350-7.450 Arterial Blood Partial Pressure CO2 30.8 L 35.0-48.0 mmHg Arterial Blood Partial Pressure O2 93.3 83.0-108.0 mmHg Arterial Blood HCO3 20.7 L 21.0-28.0 mmol/L Arterial Blood Oxygen Saturation 96.3 94.0-98.0 % Arterial Blood Base Excess -2.4 L -2.0-3.0 mmol/L Arterial Blood Oxyhemoglobin 94.8 94.0-98.0 % Arterial Blood Carboxyhemoglobin 0.9 0.5-1.5 % Arterial Blood Methemoglobin 0.7 0.0-1.5 % Baljit Test Yes Blood Gas Total Hemoglobin 12.50 L 13.5-17.5 g/dL Blood Gas Modality Room air FiO2 % 21.0 White Blood Count 16.9 H 4.4-10.8 10^3/uL Red Blood Count 4.22 L 4.5-5.90 10^6/uL Hemoglobin 12.4 L 13.5-17.5 g/dL Hematocrit 35.6 #L 41.0-53.0 % Mean Corpuscular Volume 84.4 # 80.0-100.0 fL Mean Corpuscular Hemoglobin 29.3 28.0-32.0 pg Mean Corpuscular Hemoglobin Concent 34.8 32.0-36.0 g/dL Red Cell Distribution Width 14.9 H 11.8-14.3 % Platelet Count 93 L 140-450 10^3/uL Mean Platelet Volume 7.2 6.9-10.8 fL Neutrophils (%) (Auto) 93.3 H 37.0-80.0 % Lymphocytes (%) (Auto) 1.0 L 10.0-50.0 % Monocytes (%) (Auto) 5.6 0.0-12.0 % Eosinophils (%) (Auto) 0.0 0.0-7.0 % Basophils (%) (Auto) 0.1 0.0-2.0 % Neutrophils # (Auto) 15.7 H 1.6-8.6 10 ^3/uL Lymphocytes # (Auto) 0.2 L 0.4-5.4 10 ^3/uL Monocytes # (Auto) 0.9 0-1.3 10 ^3/uL Eosinophils # (Auto) 0 0-0.8 10 ^3/uL Basophils # (Auto) 0 0-0.2 10 ^3/uL Nucleated Red Blood Cells 0.3 % Serum Osmolality 341 H 278-298 mOsm/kg Lactic Acid Level 1.6 0.4-2.0 mmol/L Test 07/12/24 00:33 07/11/24 22:25 07/11/24 21:40 07/11/24 21:25 Range/Units Blood Gas Critical Value Read Back yes Blood Gas Notified Whom jose Lutz md Blood Gas Notified Time [id number] Blood Gas Notified By Urine Color Light-yellow Yellow Urine Clarity Clear Clear Urine pH 5.0 5.0-9.0 Urine Specific [place] 1.017 1.001-1.035 Urine Protein Trace H Negative Urine Ketones 2+ H Negative Urine Blood Negative Negative /uL Urine Nitrite Negative Negative Urine Bilirubin Negative Negative Urine Urobilinogen Normal Negative mg/dL Urine Leukocyte Esterase Negative Negative /uL Urine RBC <1 0 - 3 /hpf Urine WBC 1 0 - 3 /hpf Urine Squamous Epithelial Cells Few <5 /hpf Urine Bacteria None seen None Seen /hpf Urine Osmolality 413 mOsm/kg Urine Sodium 15 L 40-220 mmol/L Urine Glucose 4+ H Normal mg/dL Urine Total Protein 40.5 H 1-14 mg/dL Urine Opiates Screen Neg NEGATIVE Urine Fentanyl Screen Neg NEGATIVE Urine Barbiturates Screen Neg NEGATIVE Urine Phencyclidine Screen Neg NEGATIVE Urine Amphetamines Screen Neg NEGATIVE Urine Benzodiazepines Screen Neg NEGATIVE Urine Cocaine Screen Neg NEGATIVE Urine Cannabinoids Screen Neg NEGATIVE Blood Gas Comments Pco2 out of amr Hemoglobin A1c 9.0 H <5.7 % A1C Triglycerides Level 701 H < 150 mg/dL Cholesterol Level 249 H < 200 mg/dL LDL Cholesterol < 100 mg/dL HDL Cholesterol 61 H 40-59 mg/dL Beta-Hydroxybutyric Acid > 4.500 H < 0.4 mmol/L Plasma/Serum Blood Alcohol < 3.0 <10 mg/dL Assessment Hypovolemic shock Atrial fibrillation with rapid ventricular rate, now sinus tachycardia Acute diabetic ketoacidosis Insulin-dependent diabetes mellitus Acute dehydration with recent alcohol use Severe hypokalemia Dyslipidemia Esophageal varices Suboptimal medical therapy/noncompliance Plan/Recommendation (Dr. Brown) The patient who presented with reported supraventricular tachycardia and an atrial fibrillation rhythm with rapid ventricular rate most likely secondary to hemodynamic derangement including electrolyte imbalance and severe hyperglycemia has transition into a sinus tachycardia rhythm. Denies any further cardiac symptoms. Given prolonged history of medical non-compliance with medical therapy, we recommend ASA therapy at this time ([id number] Score 2, HAS-BLED Score 2). Initiate metoprolol XL with optimal BPs, current SBP 110s mmHg. Replete electrolytes as necessary, K>4 and Mg>2. We recommend an outpatient event monitor. Transthoracic echocardiogram from 03/25/24 revealed EF 55%. Strongly counseled on medical compliance and alcohol cessation. Follow-up with Cardiology within 3-4 weeks. There is no further cardiac workup indicated at this time. Kindly call if in need to re-consult. Thank you for allowing us to participate in this patient's care. Critical care time: 30 min. This medical document was created using an electronic medical record system with voice recognition software and computerized dictation system. Although this document has been carefully reviewed, there might still be some phonetic and typographical errors. Occasional wrong-word or ``sound-alike substitutions may have occurred due to the inherent limitations of voice recognition software. These areas are purely typographical due to imperfections of the software programs and do not reflect any compromise in the patient's medical care. Please read the chart carefully and recognize, using context, where these substitutions have occurred. Plan discussed with: Patient, Other Date of Service: Jul 12, 2024 Billing Provider: JAYLYN BROWN MD Cardiology Common Codes: [id number] CARE 30-74 MIN [facility] Jul 12, 2024 09:50
[2024-07-12 09:57] LABS: Albumin 3.4 g/dL (3.2-4.8); Alkaline Phosphatase 94 U/L (46-116); Anion Gap 18 (5-15); Magnesium 1.9 mg/dL (1.6-2.6)
[2024-07-12] MEDS ORDERED: ENOXAPARIN SOD 40 MG/0.4 ML SYRINGE SC SCH (10:00)
[2024-07-12] MEDS: ENOXAPARIN SOD 100 MG/1 ML SYRINGE SC SCH (10:00)
[2024-07-12 10:01] LABS: Alanine Aminotransferase 266 U/L (7-40); Aspartate Aminotransferase 193 U/L (13-40); Blood Urea Nitrogen 36 mg/dL (9-23); Calcium 7.6 mg/dL (8.7-10.4); Carbon Dioxide 19 mmol/L (20-31); Chloride 110 mmol/L (98-107); Glucose 227 mg/dL (74-106); Potassium 3.2 mmol/L (3.5-5.1); Sodium 147 mmol/L (136-145); Total Protein 5.6 g/dL (5.7-8.2)
[2024-07-12] MEDS: D5W/SOD CHL 0.45% 1,000 ML IV SCH (10:08)
[2024-07-12] MEDS ORDERED: VANCOMYCIN 1.5GM/300ML 300 ML IV ONE (10:15)
[2024-07-12] MEDS: MEROPENEM 500MG IVPB 50 ML IV SCH (10:32)
[2024-07-12] MEDS: INSULIN LANTUS (GLARGINE) 1 /0.01ml (100units/ml) SC SCH ×2 (10:32→23:30)
[2024-07-12] MEDS: ASPirin 81 mg TAB PO ONE (10:33)
[2024-07-12] MEDS: POTASSIUM EFFERVESENT TAB 25 MEQ PO ONE (11:16)
[2024-07-12] MEDS: MAGNESIUM OXIDE 400 MG TAB PO ONE (11:16)
[2024-07-12 12:52] LABS: Anion Gap 15 (5-15); Carbon Dioxide 22 mmol/L (20-31)
[2024-07-12 12:54] LABS: Calcium 8.1 mg/dL (8.7-10.4); Chloride 110 mmol/L (98-107); Potassium 3.2 mmol/L (3.5-5.1); Sodium 147 mmol/L (136-145)
[2024-07-12 12:58] LABS: BUN/Creatinine Ratio 25.2 (10.0-20.0); Magnesium 1.9 mg/dL (1.6-2.6)
[2024-07-12 12:59] LABS: Blood Urea Nitrogen 30 mg/dL (9-23); Glucose 220 mg/dL (74-106)
--- NOTE | 2024-07-12 15:10 | DVH ---
Procedure: CT CHEST WITHOUT CONTRAST Reason for study/Clinical History: Pneumonia. Comparison Study: None. Exam Date: 07/12/2024 02:44 PM TECHNIQUE: Multidetector CT of the chest was performed from the lung apices to the upper abdomen with out the use of intravenous contract. Axial, coronal and sagittal multiplanar reformats were performed . Radiation Dose Information: CT Dose: CTDI volume is 8.5 mGy. Dose-length product is 363 mGy*cm The dose indicators for CT are the volume Computed Tomography (CT) Dose Index (CTDIvol) and the Dose Length Product (DLP), and are measured in units of mGy and mGy-cm, respectively. These indicators are not patient dose, but values generated from the CT scanner acquisition factors. The report includes radiation exposure data for exposures received during this examination. Radiation optimization: All CT scans at this facility use at least one of these dose optimization eliazar hniques: automated exposure control mA and/or kV adjustment per patient size (includes targeted exam s where dose is matched to clinical indication) or iterative reconstruction. FINDINGS Lungs/Pleura: No focal consolidation. No suspicious appearing pulmonary nodule or mass. The central a irways are clear. There is no evidence of pleural effusion or pneumothorax. Heart/Vascular Structures: Normal heart size. No pericardial effusion. Lymph Nodes: No thoracic lymphadenopathy. Musculoskeletal: No acute osseous abnormality. There is a chronic healed left rib fracture. Soft tissues: Unremarkable. Upper abdomen: Visualized solid abdominal viscera grossly appears unremarkable. IMPRESSION: There is no acute intrathoracic abnormality. HS:Y
[2024-07-12 15:35] LABS: Carbon Dioxide 21 mmol/L (20-31)
[2024-07-12 15:40] LABS: BUN/Creatinine Ratio 21.7 (10.0-20.0)
[2024-07-12 15:49] LABS: Blood Urea Nitrogen 25 mg/dL (9-23); Calcium 8.2 mg/dL (8.7-10.4); Glucose 290 mg/dL (74-106)
[2024-07-12 15:54] LABS: Anion Gap 17 (5-15); Chloride 108 mmol/L (98-107); Potassium 2.8 mmol/L (3.5-5.1); Sodium 146 mmol/L (136-145)
[2024-07-12] MEDS ORDERED: chlordiazePOXIDE HCL 25 MG CAP PO PRN (17:00)
[2024-07-12] MEDS ORDERED: LORazepam 2MG/ML-1ML VIAL IV PRN (17:00)
[2024-07-12] MEDS: PANTOPRAZOLE 40 MG/10 ML VIAL INJ IV ONE (17:15)
[2024-07-12] MEDS: SOD CHL 0.45% WITH 20MEQ KCL 1,000 ML IV SCH (17:15)
[2024-07-12] MEDS: THIAMINE 100mg/ml INJ (200mg/2ml VIAL) IV ONE (18:08)
[2024-07-12] MEDS: FOLIC ACID 1 MG, MAGNESIUM SULF SDV 50% 8 MEQ, MULTIPLE VITAMIN 10 ML, THIAMINE INJ 100... INJ SCH (18:13)
[2024-07-12 19:08] LABS: Chloride 107 mmol/L (98-107); Sodium 145 mmol/L (136-145)
[2024-07-12 19:09] LABS: Anion Gap 14 (5-15); Carbon Dioxide 24 mmol/L (20-31)
[2024-07-12 19:14] LABS: BUN/Creatinine Ratio 21.4 (10.0-20.0); Blood Urea Nitrogen 21 mg/dL (9-23)
[2024-07-12 19:15] LABS: Magnesium 2.1 mg/dL (1.6-2.6)
[2024-07-12 19:16] LABS: Calcium 8.4 mg/dL (8.7-10.4); Glucose 176 mg/dL (74-106); Potassium 2.9 mmol/L (3.5-5.1)
--- NOTE | 2024-07-12 19:37 | DVHPNRES ---
Progress Note Date Seen: Jul 12, 2024 Resident Creating Document: ANJALI MASON RESIDENT Medical Necessity Reason Pt with a Central, PICC or Fol: Yes The following are medically ne: Central Line, Avalos Catheter Subjective Review of Systems This is a 34-year-old male with past medical history of hypertension, type 1 diabetes mellitus, dyslipidemia, liver disease, ethanol abuse, previous episodes of DKA who presented to the ED with a rapid shallow breathing, nausea vomiting and slight abdominal tenderness. The patient was initially drowsy but alert responding to questions pertinently. Per EMS, the patient was having difficulty breathing at home and was found to have SVT with a high rate at 180. Upon admission and my examination the patient was drowsy answering questions, denied recent drug consumption, alcohol or sick contacts. The patient stated that last drink was two days ago. Initial labs showed a WBC of 21, hemoglobin 13.8, hematocrit 43.1 and platelets 164. CMP showed sodium of 120 (corrected Na 134), potassium 3.6, bicarb <10, BUN and creatinine were 71 and 3.59 respectively. Blood glucose was initially 1029. We performed stat ABG which showed a pH of 7.0, bicarbonate was undetectable (<7), pCO2 12.6, PaO2 133.9 consistent with a severe metabolic acidosis with metabolic compensation (unable to calculated due to no bicarb readings). Patient was started in a total of 4 L of IV fluids NS 0.9% in the 1st 3-4 hours. Patient was given IV insulin bolus 20 units in the ED and was started on insulin drip protocol. At that time, patient was on AFib with RVR at a rate of 150s with blood pressure 70/40mmhg. The patient was initially started on low-dose norepinephrine and transitioned to phenylephrine while IV fluid resuscitation was been performed. Once patient became slightly euvolemic we titrated down vasopressors and heart rate and rhythm came back to sinus tachycardia once the acidosis started to correct. Electrolytes were monitored constantly every 2 hours and patient was admitted for further assessment and management. The patient also admitted not using insulin in the past couple of days. Home medications: Basal insulin (Lantus) 20 units at bedside. Patient states that does not follow a basal bolus regimen. He does a sliding scale insulin which do not follow appropriately but do inject the 20 units of Lantus daily. Patient seen and examined at the bedside. Continuing IV insulin and a half NS. DC D5W. Started Librium 20 mg p.o. q.6 hour and Ativan 1 mg IV q.6 p.r.n. for alcohol withdrawal. Chest CT unremarkable. Objective vital signs Vital Sign Date Time Temp Pulse Resp B/P (MAP) Pulse Ox O2 Delivery O2 Flow Rate FiO2 07/12/24 19:00 98.0 118 16 119/77 (91) 100 98.0 07/12/24 07:40 Room Air* 0 21 Total Intake and Output 07/11/24 07/11/24 07/12/24 15:00 23:00 07:00 Intake Total 3050 ml 7150 ml Balance 3050 ml 7150 ml medications Current Medications Medications Dose Ordered Sig/Lazaro Route Start Time Stop Time Status Last Admin Dose Admin Insulin Human (Reg)/Sodium Chloride 100 ml @ 0.5 mls/hr Q24H IV 07/11/24 21:30 07/11/24 23:24 6 MLS/HR Dextrose 50 ml UD PRN IV 07/11/24 21:30 Diagnostic Test (Pha) 1 strip Q90MIN 07/11/24 22:30 07/12/24 18:08 1 STRIP Insulin Glargine 15 units DAILY SC 07/12/24 10:00 07/12/24 10:32 15 UNITS Acetaminophen/ Hydrocodone Bitart 1 tab Q4HP PRN PO 07/12/24 00:00 Ondansetron HCl 4 mg Q4HP PRN IV 07/12/24 00:00 Atorvastatin Calcium 40 mg HS PO 07/12/24 22:00 Enoxaparin Sodium 70 mg Q12HR SC 07/12/24 10:00 Aspirin 81 mg DAILY PO 07/13/24 10:00 Potassium Chloride 100 ml @ 50 mls/hr Q2H IV 07/12/24 16:30 07/13/24 00:29 07/12/24 18:40 50 MLS/HR Potassium Chloride/Sodium Chloride 1,000 ml @ 120 mls/hr Q8H20M IV 07/12/24 16:45 07/12/24 17:15 120 MLS/HR Lorazepam 1 mg Q6HP PRN IV 07/12/24 17:00 Chlordiazepoxide HCl 25 mg Q6HPRN PRN PO 07/12/24 17:00 Folic Acid 1 mg/ Magnesium Sulfate 8 meq/ Multivitamins 10 ml/Thiamine HCl 100 mg/Sodium Chloride 1,013.2 ml @ 126.247 mls/hr DAILY@1800 INJ 07/12/24 18:00 07/12/24 18:13 126.247 MLS/HR Pantoprazole Sodium 40 mg DAILY IV 07/13/24 10:00 Examination Young male patient lying in bed, in no acute distress General: Well-built, afebrile, palor, mucosae are moist Cardiovascular: Sinus tachycardia, Regular S1 and S2. No murmurs, gallops or rubs. No JVD elevation. No pedal edema Respiratory: Normal B/L air entry on room air. Clear lung sounds on auscultation Abdomen: Soft, nontender, nondistended, normoactive bowel sounds, no rebound tenderness, no organomegaly, no masses Genitourinary: Deferred MSK/skin: Mobilizes 4 limbs. Skin is dry and warm Neurological: No motor, no sensitive deficits, normal speech. Pupils are isocoric and reactive. Psych/Mental Status: A/Ox4 laboratory and microbiology Laboratory Tests 07/12/24 18:45 07/12/24 05:50 Test 07/12/24 18:45 Range/Units Serum Glucose 176 #H 74-106 mg/dL Labs and/or images reviewed: Labs reviewed by me, Image(s) reviewed by me Problem List/Assessment/Plan Problem List/Assessment/Plan Septic shock in the setting of DKA Severe dehydration DKA Leukocytosis Anion gap metabolic acidosis - 4 L IV fluids bolus given - insulin bolus 0.1 mL/kg followed by insulin drip protocol -patient received low-dose not happy and phenylephrine - bicarb bolus given by the ED - -Initial ABG showed pH of 7.09, pCO2 less than 12.6, HC03 undetectable (LOW), PaO2 133.9, anion gap was 36, BG was 1029 - discontinue IV vanco and meropenem Sinus tachycardia due to DKA/electrolyte abnormalities/alcoholic withdrawal Acute alcoholic withdrawal - thiamine and folate supplemented - Librium and Ativan p.r.n. KEILA likely due to vasomotornephropathy (septic shock and dehydration) - creatinine and downtrending Hypotension - history of hypertension Required pressor support. Dyslipidemia Atorvastatin 40 mg daily Hypokalemia Hypomagnesemia Supplementing Alcohol use dependence Counseled regarding cessation for more than 20 minutes DVT prophylaxis: Enoxaparin 70 mg daily GERD prophylaxis: Pantoprazole 40 mg IV Plan discussed with patient and the nurse in which all questions have been answered Goals of care discussed with the patient for more than 25 minute, full code status Case discussed with Dr. Oneil critical care time 51 mins Plan discussed with: Patient My Orders My Orders Orders - ANJALI MASON Procedure Category Date Status Time Abg W/ Co-Ox RT 07/12/24 Logged 08:[address] 07/12/24 Resulted 14:28 Potassium Chl PHA 07/12/24 In Process 20meq/100ml 16:30 Date of Service: Jul 12, 2024 Billing Provider: BUCKY ONEIL MD Common Visit Codes: [id number] CARE 30-74 MIN ANJALI MASON Jul 12, 2024 19:37 BUCKY ONEIL MD Jul 13, 2024 10:57
[2024-07-12 19:40] VITALS: PULSE 111; RESP 14; O2SAT 100
[2024-07-12 20:05] VITALS: PULSE 119; RESP 16; O2SAT 100
[2024-07-12 20:50] LABS: Anion Gap 13 (5-15); Carbon Dioxide 24 mmol/L (20-31)
[2024-07-12 20:56] LABS: BUN/Creatinine Ratio 18.6 (10.0-20.0); Blood Urea Nitrogen 18 mg/dL (9-23)
[2024-07-12 20:57] LABS: Calcium 8.4 mg/dL (8.7-10.4); Chloride 108 mmol/L (98-107); Glucose 139 mg/dL (74-106); Sodium 145 mmol/L (136-145)
[2024-07-12 21:39] LABS: Base Excess -0.6 mmol/L (-2.0-3.0)
[2024-07-12] MEDS: ATORVASTATIN 20 MG TAB PO SCH (21:53)
[2024-07-12] MEDS: POTASSIUM CHL 20 Meq TABLET PO ONE (23:15)
[2024-07-12] MEDS ORDERED: DEXTROSE (50%) 50ML SYRG IV PRN (23:30)
[2024-07-13 00:48] LABS: Magnesium 2.4 mg/dL (1.6-2.6)
[2024-07-13] MEDS: ACCU-CHEK COMFORT CURVE STRIP VI SCH (01:19)
[2024-07-13] MEDS: InsuLIN REG 1unit/0.01ml Soln (100units/ml) SC SCH (01:22)
[2024-07-13] MEDS ORDERED: VANCOMYCIN 750MG KIT 100 ML IV SCH (03:00)
[2024-07-13 05:08] LABS: Basophils # (auto) 0 10 ^3/uL (0-0.2); Basophils % (auto) 0.3 % (0.0-2.0); Eosinophils # (auto) 0 10 ^3/uL (0-0.8); Eosinophils % (auto) 0.1 % (0.0-7.0); Hematocrit 32.9 % (41.0-53.0); Hemoglobin 11.4 g/dL (13.5-17.5); Lymphocytes # (auto) 0.5 10 ^3/uL (0.4-5.4); Lymphocytes % (auto) 6.1 % (10.0-50.0); Mean Corpuscular Hemoglobin 30.1 pg (28.0-32.0); Mean Corpuscular Hgb Conc. 34.6 g/dL (32.0-36.0); Mean Corpuscular Volume 86.9 fL (80.0-100.0); Monocytes # (auto) 0.5 10 ^3/uL (0-1.3); Monocytes % (auto) 6.7 % (0.0-12.0); Neutrophils # (auto) 6.9 10 ^3/uL (1.6-8.6); Neutrophils % (auto) 86.8 % (37.0-80.0); Nucleated Red Blood Cells % 0.1 %; Platelet Count (auto) 78 10^3/uL (140-450); Red Blood Cells 3.79 10^6/uL (4.5-5.90); Red Cell Distribution Width 15.6 % (11.8-14.3); White Blood Cell 7.9 10^3/uL (4.4-10.8)
[2024-07-13] MEDS: ONDANSETRON HCL 4 MG/2 ML VIAL IV PRN (05:25)
[2024-07-13 05:30] LABS: Albumin 3.5 g/dL (3.2-4.8); Alkaline Phosphatase 84 U/L (46-116); Anion Gap 18 (5-15); BUN/Creatinine Ratio 12.1 (10.0-20.0); Blood Urea Nitrogen 11 mg/dL (9-23); Magnesium 2.4 mg/dL (1.6-2.6); Sodium 143 mmol/L (136-145)
[2024-07-13 05:38] LABS: Alanine Aminotransferase 247 U/L (7-40); Aspartate Aminotransferase 226 U/L (13-40); Calcium 8.6 mg/dL (8.7-10.4); Carbon Dioxide 17 mmol/L (20-31); Chloride 108 mmol/L (98-107); Glucose 212 mg/dL (74-106); Phosphorus 1.4 mg/dL (2.4-5.1); Potassium 2.9 mmol/L (3.5-5.1); Total Protein 5.5 g/dL (5.7-8.2)
--- NOTE | 2024-07-13 06:35 | ECG ---
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
[2024-07-13] MEDS: ASPirin 81 mg TAB PO SCH (10:22)
[2024-07-13] MEDS: PANTOPRAZOLE 40 MG/10 ML VIAL INJ IV SCH (10:22)
[2024-07-13 11:41] VITALS: PULSE 112; RESP 16; O2SAT 99
[2024-07-13] MEDS: POTASSIUM CHL 20 Meq TABLET PO ONE (13:13)
[2024-07-13] MEDS: LACTATED RINGER'S 1,000 ML IV SCH (13:18)
[2024-07-13] MEDS: POTASSIUM PHOSPHATE 44 MEQ in D5W 5% 250 ML IV ONE (13:36)
[2024-07-13] MEDS: INSULIN LANTUS (GLARGINE) 1 /0.01ml (100units/ml) SC ONE (15:03)
[2024-07-13] MEDS: THIAMINE HCL 100 MG TAB PO ONE (15:38)
[2024-07-13] MEDS: MAGNESIUM OXIDE 400 MG TAB PO ONE (15:38)
[2024-07-13] MEDS: MULTIPLE VITAMIN TAB PO ONE (15:38)
[2024-07-13] MEDS: FOLIC ACID 1 MG TAB PO ONE (15:38)
--- NOTE | 2024-07-13 16:28 | DVHPNRES ---
Progress Note Date Seen: Jul 13, 2024 Resident Creating Document: ANJALI MASON RESIDENT Medical Necessity Reason Pt with a Central, PICC or Fol: Yes The following are medically ne: Central Line, Avalos Catheter Subjective Review of Systems This is a 34-year-old male with past medical history of hypertension, type 1 diabetes mellitus, dyslipidemia, liver disease, ethanol abuse, previous episodes of DKA who presented to the ED with a rapid shallow breathing, nausea vomiting and slight abdominal tenderness. The patient was initially drowsy but alert responding to questions pertinently. Per EMS, the patient was having difficulty breathing at home and was found to have SVT with a high rate at 180. Upon admission and my examination the patient was drowsy answering questions, denied recent drug consumption, alcohol or sick contacts. The patient stated that last drink was two days ago. Initial labs showed a WBC of 21, hemoglobin 13.8, hematocrit 43.1 and platelets 164. CMP showed sodium of 120 (corrected Na 134), potassium 3.6, bicarb <10, BUN and creatinine were 71 and 3.59 respectively. Blood glucose was initially 1029. We performed stat ABG which showed a pH of 7.0, bicarbonate was undetectable (<7), pCO2 12.6, PaO2 133.9 consistent with a severe metabolic acidosis with metabolic compensation (unable to calculated due to no bicarb readings). Patient was started in a total of 4 L of IV fluids NS 0.9% in the 1st 3-4 hours. Patient was given IV insulin bolus 20 units in the ED and was started on insulin drip protocol. At that time, patient was on AFib with RVR at a rate of 150s with blood pressure 70/40mmhg. The patient was initially started on low-dose norepinephrine and transitioned to phenylephrine while IV fluid resuscitation was been performed. Once patient became slightly euvolemic we titrated down vasopressors and heart rate and rhythm came back to sinus tachycardia once the acidosis started to correct. Electrolytes were monitored constantly every 2 hours and patient was admitted for further assessment and management. The patient also admitted not using insulin in the past couple of days. Home medications: Basal insulin (Lantus) 20 units at bedside. Patient states that does not follow a basal bolus regimen. He does a sliding scale insulin which do not follow appropriately but do inject the 20 units of Lantus daily. Patient seen and examined at the bedside. Overnight, insulin drip was discontinued. Started on Lantus 20 units daily and ISS. Downgraded to tele. Regular diet is started. Potassium phosphate supplemented. Avalos discontinued. WBC trended down. Follow up with BMP. Objective vital signs Vital Sign Date Time Temp Pulse Resp B/P (MAP) Pulse Ox O2 Delivery O2 Flow Rate FiO2 07/13/24 15:00 97 12 138/90 (106) 100 07/13/24 11:41 Room Air* 0 21 07/12/24 20:05 97.9 97.9 Total Intake and Output 07/12/24 07/12/24 07/13/24 15:00 23:00 07:00 Intake Total 2160 ml 730 ml Output Total 3650 ml 1550 ml 1001 ml Balance -1490 ml -820 ml -1001 ml medications Current Medications Medications Dose Ordered Sig/Lazaro Route Start Time Stop Time Status Last Admin Dose Admin Diagnostic Test (Pha) 1 strip Q90MIN 07/11/24 22:30 07/13/24 15:11 1 STRIP Acetaminophen/ Hydrocodone Bitart 1 tab Q4HP PRN PO 07/12/24 00:00 Ondansetron HCl 4 mg Q4HP PRN IV 07/12/24 00:00 07/13/24 05:25 4 MG Atorvastatin Calcium 40 mg HS PO 07/12/24 22:00 07/12/24 21:53 40 MG Aspirin 81 mg DAILY PO 07/13/24 10:00 07/13/24 10:22 81 MG Lorazepam 1 mg Q6HP PRN IV 07/12/24 17:00 Chlordiazepoxide HCl 25 mg Q6HPRN PRN PO 07/12/24 17:00 Pantoprazole Sodium 40 mg DAILY IV 07/13/24 10:00 07/13/24 10:22 40 MG Insulin Glargine 20 units DAILY SC 07/12/24 23:30 07/13/24 10:24 20 UNITS Diagnostic Test (Pha) 1 strip IQ4HR 07/13/24 00:00 07/13/24 12:21 1 STRIP Insulin Human Regular IQ4HR SC 07/13/24 00:00 07/13/24 12:25 9 UNITS Dextrose 50 ml UD PRN IV 07/12/24 23:30 Lactated Ringer's 1,000 ml @ 100 mls/hr Q10H IV 07/13/24 11:00 07/13/24 13:18 100 MLS/HR Folic Acid 1 mg DAILY PO 07/14/24 10:00 Multivitamins 1 tab DAILY PO 07/14/24 10:00 Magnesium Oxide 400 mg DAILY PO 07/14/24 10:00 Thiamine HCl 100 mg DAILY PO 07/14/24 10:00 Examination Young male patient lying in bed, in no acute distress. Patient has a right femoral CVC. General: Well-built, afebrile, palor, mucosae are moist Cardiovascular: Sinus tachycardia, Regular S1 and S2. No murmurs, gallops or rubs. No JVD elevation. No pedal edema Respiratory: Normal B/L air entry on room air. Clear lung sounds on auscultation Abdomen: Soft, nontender, nondistended, normoactive bowel sounds, no rebound tenderness, no organomegaly, no masses Genitourinary: Avalos discontinued MSK/skin: Mobilizes 4 limbs. Skin is dry and warm Neurological: No motor, no sensitive deficits, normal speech. Pupils are isocoric and reactive. Psych/Mental Status: A/Ox4 laboratory and microbiology Laboratory Tests 07/13/24 04:47 Test 07/13/24 04:47 Range/Units Serum Glucose 212 H 74-106 mg/dL Labs and/or images reviewed: Labs reviewed by me, Image(s) reviewed by me Problem List/Assessment/Plan Problem List/Assessment/Plan Septic shock in the setting of DKA Severe dehydration DKA Leukocytosis Anion gap metabolic acidosis - 4 L IV fluids bolus given - discontinued - insulin bolus 0.1 mL/kg followed by insulin drip protocol - on ISS and Lantus 20 units daily -patient received low-dose not happy and phenylephrine - bicarb bolus given by the ED - -Initial ABG showed pH of 7.09, pCO2 less than 12.6, HC03 undetectable (LOW), PaO2 133.9, anion gap was 36, BG was 1029 - discontinue IV vanco and meropenem Sinus tachycardia due to DKA/electrolyte abnormalities/alcoholic withdrawal Acute alcoholic withdrawal - thiamine and folate supplemented - Librium and Ativan p.r.n. KEILA likely due to vasomotornephropathy (septic shock and dehydration) - creatinine and downtrending Hypotension - history of hypertension Required pressor support. Dyslipidemia Atorvastatin 40 mg daily Hypokalemia Hypomagnesemia Hypophosphatemia Supplementing Thrombocytopenia Monitor Alcohol use dependence Counseled regarding cessation for more than 20 minutes DVT prophylaxis: Discontinued Enoxaparin 70 mg daily given the low platelets. GERD prophylaxis: Pantoprazole 40 mg IV Diet: Consistent carbohydrate Plan discussed with patient and the nurse in which all questions have been answered Goals of care discussed with the patient for more than 25 minute, full code status Case discussed with Dr. Oneil Plan discussed with: Patient Date of Service: Jul 13, 2024 Billing Provider: BUCKY ONEIL MD Common Visit Codes: [id number] INP/OBS CARE(HIGH) Secondary Visit Codes: [id number] CARE PLAN 30 MINUTES ANJALI MASON RESIDENT Jul 13, 2024 16:28 BUCKY ONEIL MD Jul 14, 2024 10:52
--- NOTE | 2024-07-13 17:57 | ECG ---
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
[2024-07-13 19:48] VITALS: RESP 14; O2SAT 99
[2024-07-13 21:17] LABS: Chloride 105 mmol/L (98-107); Potassium 3.9 mmol/L (3.5-5.1); Sodium 139 mmol/L (136-145)
[2024-07-13 21:18] LABS: Anion Gap 8 (5-15); Carbon Dioxide 26 mmol/L (20-31)
[2024-07-13 21:23] LABS: BUN/Creatinine Ratio 10.5 (10.0-20.0); Blood Urea Nitrogen 10 mg/dL (9-23)
[2024-07-13 21:29] LABS: Glucose 231 mg/dL (74-106)
[2024-07-14] VITALS (7 sets, daily range): BP systolic 128–144; BP diastolic 90–98; PULSE 102–116; RESP 13–20; TEMP 97.9–98.8; O2SAT 95–100
[2024-07-14 06:41] LABS: Basophils # (auto) 0 10 ^3/uL (0-0.2); Basophils % (auto) 0.1 % (0.0-2.0); Eosinophils # (auto) 0 10 ^3/uL (0-0.8); Eosinophils % (auto) 0.5 % (0.0-7.0); Hematocrit 30.4 % (41.0-53.0); Hemoglobin 10.8 g/dL (13.5-17.5); Lymphocytes # (auto) 0.5 10 ^3/uL (0.4-5.4); Mean Corpuscular Hemoglobin 30.5 pg (28.0-32.0); Mean Corpuscular Hgb Conc. 35.6 g/dL (32.0-36.0); Mean Corpuscular Volume 85.7 fL (80.0-100.0); Monocytes # (auto) 0.4 10 ^3/uL (0-1.3); Monocytes % (auto) 11.4 % (0.0-12.0); Neutrophils # (auto) 2.7 10 ^3/uL (1.6-8.6); Nucleated Red Blood Cells % 0.2 %; Platelet Count (auto) 69 10^3/uL (140-450); Red Blood Cells 3.55 10^6/uL (4.5-5.90); White Blood Cell 3.6 10^3/uL (4.4-10.8)
[2024-07-14 06:48] LABS: Anion Gap 8 (5-15); Carbon Dioxide 27 mmol/L (20-31); Chloride 107 mmol/L (98-107); Sodium 142 mmol/L (136-145)
[2024-07-14 06:49] LABS: Calcium 8.6 mg/dL (8.7-10.4)
[2024-07-14 06:54] LABS: BUN/Creatinine Ratio 15.1 (10.0-20.0); Blood Urea Nitrogen 11 mg/dL (9-23)
[2024-07-14 06:56] LABS: Glucose 146 mg/dL (74-106); Phosphorus 1.9 mg/dL (2.4-5.1)
[2024-07-14] MEDS: THIAMINE HCL 100 MG TAB PO SCH (09:15)
[2024-07-14] MEDS: MAGNESIUM OXIDE 400 MG TAB PO SCH (09:16)
[2024-07-14] MEDS: FOLIC ACID 1 MG TAB PO SCH (09:16)
[2024-07-14] MEDS: MULTIPLE VITAMIN TAB PO SCH (09:16)
[2024-07-14] MEDS: POTASSIUM CHL 20MEQ/100ML 100 ML IV SCH (09:17)
--- NOTE | 2024-07-14 09:26 | DVH ---
XY CHEST XRAY 1 VIEW, HISTORY: CONGESTION COMPARISON: XY CHEST XRAY 1 VIEW on DOS: 07/11/24, XY CHEST PORTABLE on DOS: 11/30/23, XY CHEST PORTABLE on DOS: 07/03/23 XY CHEST XRAY 1 VIEW on DOS: 07/11/24, XY CHEST PORTABLE on DOS: 11/30/23, XY CHEST PORTABLE on DOS: TECHNICAL DATA: 1 view of the chest was obtained. FINDINGS: Lines and tubes: None Cardiomediastinal silhouette: normal Pulmonary vasculature: normal Lung expansion: normal Lung airspace: normal Lung interstitium: normal Pleura: normal Pneumothorax: no Bones: Unremarkable Other: no IMPRESSION: No acute intrathoracic abnormality.
--- NOTE | 2024-07-14 18:52 | DVHPNRES ---
Progress Note Date Seen: Jul 14, 2024 Resident Creating Document: ANJALI MASON RESIDENT Medical Necessity Reason Pt with a Central, PICC or Fol: Yes The following are medically ne: Central Line, Avalos Catheter Subjective Review of Systems This is a 34-year-old male with past medical history of hypertension, type 1 diabetes mellitus, dyslipidemia, liver disease, ethanol abuse, previous episodes of DKA who presented to the ED with a rapid shallow breathing, nausea vomiting and slight abdominal tenderness. The patient was initially drowsy but alert responding to questions pertinently. Per EMS, the patient was having difficulty breathing at home and was found to have SVT with a high rate at 180. Upon admission and my examination the patient was drowsy answering questions, denied recent drug consumption, alcohol or sick contacts. The patient stated that last drink was two days ago. Initial labs showed a WBC of 21, hemoglobin 13.8, hematocrit 43.1 and platelets 164. CMP showed sodium of 120 (corrected Na 134), potassium 3.6, bicarb <10, BUN and creatinine were 71 and 3.59 respectively. Blood glucose was initially 1029. We performed stat ABG which showed a pH of 7.0, bicarbonate was undetectable (<7), pCO2 12.6, PaO2 133.9 consistent with a severe metabolic acidosis with metabolic compensation (unable to calculated due to no bicarb readings). Patient was started in a total of 4 L of IV fluids NS 0.9% in the 1st 3-4 hours. Patient was given IV insulin bolus 20 units in the ED and was started on insulin drip protocol. At that time, patient was on AFib with RVR at a rate of 150s with blood pressure 70/40mmhg. The patient was initially started on low-dose norepinephrine and transitioned to phenylephrine while IV fluid resuscitation was been performed. Once patient became slightly euvolemic we titrated down vasopressors and heart rate and rhythm came back to sinus tachycardia once the acidosis started to correct. Electrolytes were monitored constantly every 2 hours and patient was admitted for further assessment and management. The patient also admitted not using insulin in the past couple of days. Home medications: Basal insulin (Lantus) 20 units at bedside. Patient states that does not follow a basal bolus regimen. He does a sliding scale insulin which do not follow appropriately but do inject the 20 units of Lantus daily. Patient seen and examined at the bedside. No acute complaint Objective vital signs Vital Sign Date Time Temp Pulse Resp B/P (MAP) Pulse Ox O2 Delivery O2 Flow Rate FiO2 07/14/24 11:59 98.2 107 20 128/90 (103) 98 98.2 07/14/24 07:30 Room Air* 0 21 Total Intake and Output 07/13/24 07/13/24 07/14/24 15:00 23:00 07:00 Intake Total 150 ml 225 ml Output Total 0 ml Balance 150 ml 225 ml laboratory and microbiology Laboratory Tests 07/14/24 05:00 Test 07/14/24 05:00 Range/Units Serum Glucose 146 H 74-106 mg/dL Labs and/or images reviewed: Labs reviewed by me, Image(s) reviewed by me Problem List/Assessment/Plan Problem List/Assessment/Plan Hypovolemic shock in the setting of DKA Ruled out septic shock Severe dehydration DKA Leukocytosis Anion gap metabolic acidosis - 4 L IV fluids bolus given - discontinued - insulin bolus 0.1 mL/kg followed by insulin drip protocol - on ISS and Lantus 20 units daily -patient received low-dose not happy and phenylephrine - bicarb bolus given by the ED - -Initial ABG showed pH of 7.09, pCO2 less than 12.6, HC03 undetectable (LOW), PaO2 133.9, anion gap was 36, BG was 1029 - discontinue IV vanco and meropenem Sinus tachycardia due to DKA/electrolyte abnormalities/alcoholic withdrawal Acute alcoholic withdrawal - thiamine and folate supplemented - Librium and Ativan p.r.n. KEILA likely due to vasomotornephropathy (septic shock and dehydration) - creatinine and downtrending Hypotension - history of hypertension Required pressor support. Dyslipidemia Atorvastatin 40 mg daily Hypokalemia Hypomagnesemia Hypophosphatemia Supplementing Thrombocytopenia Monitor Alcohol use dependence Counseled regarding cessation for more than 20 minutes DVT prophylaxis: Discontinued Enoxaparin 70 mg daily given the low platelets. GERD prophylaxis: Pantoprazole 40 mg IV Diet: Consistent carbohydrate Patient discharged to home. Goals of care discussed with the patient for more than 25 minute, full code status Case discussed with Dr. Ralf Mckeon discussed with: Patient My Orders My Orders Orders - ANJALI MASON Procedure Category Date Status Time Chest Xray 1 View XY 07/14/24 Resulted 08:49 ANJALI MASON Jul 14, 2024 18:52
--- NOTE | 2024-07-14 19:01 | DVHDSRES ---
Discharge Summary Date of Admission Resident Creating Document: ANJALI MASON RESIDENT Jul 11, 2024 at 23:49 Date of Discharge: Jul 14, 2024 Labs/Diagnostic Data: Laboratory Results Test 07/14/24 09:01 07/14/24 05:00 07/13/24 04:47 07/12/24 21:33 POC Glucose 298 mg/dl (70-106) White Blood Count 3.6 10^3/uL (4.4-10.8) Red Blood Count 3.55 10^6/uL (4.5-5.90) Hemoglobin 10.8 g/dL (13.5-17.5) Hematocrit 30.4 % (41.0-53.0) Mean Corpuscular Volume 85.7 fL (80.0-100.0) Mean Corpuscular Hemoglobin 30.5 pg (28.0-32.0) Mean Corpuscular Hemoglobin Concent 35.6 g/dL (32.0-36.0) Red Cell Distribution Width 15.0 % (11.8-14.3) Platelet Count 69 10^3/uL (140-450) Mean Platelet Volume 6.9 fL (6.9-10.8) Neutrophils (%) (Auto) 74.0 % (37.0-80.0) Lymphocytes (%) (Auto) 14.0 % (10.0-50.0) Monocytes (%) (Auto) 11.4 % (0.0-12.0) Eosinophils (%) (Auto) 0.5 % (0.0-7.0) Basophils (%) (Auto) 0.1 % (0.0-2.0) Neutrophils # (Auto) 2.7 10 ^3/uL (1.6-8.6) Lymphocytes # (Auto) 0.5 10 ^3/uL (0.4-5.4) Monocytes # (Auto) 0.4 10 ^3/uL (0-1.3) Eosinophils # (Auto) 0 10 ^3/uL (0-0.8) Basophils # (Auto) 0 10 ^3/uL (0-0.2) Nucleated Red Blood Cells 0.2 % Sodium Level 142 mmol/L (136-145) Potassium Level 3.0 mmol/L (3.5-5.1) Chloride Level 107 mmol/L (98-107) Carbon Dioxide Level 27 mmol/L (20-31) Anion Gap 8 (5-15) Blood Urea Nitrogen 11 mg/dL (9-23) Creatinine 0.73 mg/dL (0.700-1.30) Glomerular Filtration Rate Calc 122 mL/min (>90) BUN/Creatinine Ratio 15.1 (10.0-20.0) Serum Glucose 146 mg/dL (74-106) Calcium Level 8.6 mg/dL (8.7-10.4) Phosphorus Level 1.9 mg/dL (2.4-5.1) Magnesium Level 2.0 mg/dL (1.6-2.6) Total Bilirubin 1.0 mg/dL (0.2-1.0) Aspartate Amino Transferase (AST) 226 U/L (13-40) Alanine Aminotransferase (ALT) 247 U/L (7-40) Alkaline Phosphatase 84 U/L (46-116) Total Protein 5.5 g/dL (5.7-8.2) Albumin 3.5 g/dL (3.2-4.8) Blood Gas Specimen Type Arterial Blood Gas Sample Site Right radial Blood Gas Patient Temperature 37.0 Arterial Blood Date Drawn [id number] Arterial Blood pH 7.464 (7.350-7.450) Arterial Blood Partial Pressure CO2 32.0 mmHg (35.0-48.0) Arterial Blood Partial Pressure O2 85.8 mmHg (83.0-108.0) Arterial Blood HCO3 22.5 mmol/L (21.0-28.0) Arterial Blood Oxygen Saturation 96.2 % (94.0-98.0) Arterial Blood Base Excess -0.6 mmol/L (-2.0-3.0) Arterial Blood Oxyhemoglobin 94.9 % (94.0-98.0) Arterial Blood Carboxyhemoglobin 0.8 % (0.5-1.5) Arterial Blood Methemoglobin 0.6 % (0.0-1.5) Baljit Test Yes Blood Gas Total Hemoglobin 12.10 g/dL (13.5-17.5) Blood Gas Modality Room air Blood Gas Spontaneous Rate 20 FiO2 % 21.0 Test 07/12/24 09:22 07/12/24 03:19 07/12/24 00:33 07/11/24 22:25 Thyroid Stimulating Hormone (TSH) 0.62 uIU/mL (0.55-4.78) Serum Osmolality 341 mOsm/kg (278-298) Lactic Acid Level 1.6 mmol/L (0.4-2.0) Blood Gas Critical Value Read Back yes Blood Gas Notified Whom jose Lutz md Blood Gas Notified Time [id number] Blood Gas Notified By Urine Color Light-yellow (Yellow) Urine Clarity Clear (Clear) Urine pH 5.0 (5.0-9.0) Urine Specific [place] 1.017 (1.001-1.035) Urine Protein Trace (Negative) Urine Ketones 2+ (Negative) Urine Blood Negative /uL (Negative) Urine Nitrite Negative (Negative) Urine Bilirubin Negative (Negative) Urine Urobilinogen Normal mg/dL (Negative) Urine Leukocyte Esterase Negative /uL (Negative) Urine RBC <1 /hpf (0 - 3) Urine WBC 1 /hpf (0 - 3) Urine Squamous Epithelial Cells Few /hpf (<5) Urine Bacteria None seen /hpf (None Seen) Urine Osmolality 413 mOsm/kg Urine Sodium 15 mmol/L (40-220) Urine Glucose 4+ mg/dL (Normal) Urine Total Protein 40.5 mg/dL (1-14) Urine Opiates Screen Neg (NEGATIVE) Urine Fentanyl Screen Neg (NEGATIVE) Urine Barbiturates Screen Neg (NEGATIVE) Urine Phencyclidine Screen Neg (NEGATIVE) Urine Amphetamines Screen Neg (NEGATIVE) Urine Benzodiazepines Screen Neg (NEGATIVE) Urine Cocaine Screen Neg (NEGATIVE) Urine Cannabinoids Screen Neg (NEGATIVE) Test 07/11/24 21:40 07/11/24 21:25 Blood Gas Comments Pco2 out of amr Hemoglobin A1c 9.0 % A1C (<5.7) Triglycerides Level 701 mg/dL (< 150) Cholesterol Level 249 mg/dL (< 200) LDL Cholesterol mg/dL (< 100) HDL Cholesterol 61 mg/dL (40-59) Beta-Hydroxybutyric Acid > 4.500 mmol/L (< 0.4) Plasma/Serum Blood Alcohol < 3.0 mg/dL (<10) Other Laboratory Tests 07/14/24 05:00 Brief Hx & Hospital Course: This is a 34-year-old male with past medical history of hypertension, type 1 diabetes mellitus, dyslipidemia, liver disease, ethanol abuse, previous episodes of DKA who presented to the ED with a rapid shallow breathing, nausea vomiting and slight abdominal tenderness. The patient was initially drowsy but alert responding to questions pertinently. Per EMS, the patient was having difficulty breathing at home and was found to have SVT with a high rate at 180. Upon admission and my examination the patient was drowsy answering questions, denied recent drug consumption, alcohol or sick contacts. The patient stated that last drink was two days ago. Initial labs showed a WBC of 21, hemoglobin 13.8, hematocrit 43.1 and platelets 164. CMP showed sodium of 120 (corrected Na 134), potassium 3.6, bicarb <10, BUN and creatinine were 71 and 3.59 respectively. Blood glucose was initially 1029. We performed stat ABG which showed a pH of 7.0, bicarbonate was undetectable (<7), pCO2 12.6, PaO2 133.9 consistent with a severe metabolic acidosis with metabolic compensation (unable to calculated due to no bicarb readings). Patient was started in a total of 4 L of IV fluids NS 0.9% in the 1st 3-4 hours. Patient was given IV insulin bolus 20 units in the ED and was started on insulin drip protocol. At that time, patient was on AFib with RVR at a rate of 150s with blood pressure 70/40mmhg. The patient was initially started on low-dose norepinephrine and transitioned to phenylephrine while IV fluid resuscitation was been performed. Once patient became slightly euvolemic we titrated down vasopressors and heart rate and rhythm came back to sinus tachycardia once the acidosis started to correct. Electrolytes were monitored constantly every 2 hours and patient was admitted for further assessment and management. The patient also admitted not using insulin in the past couple of days. Home medications: Basal insulin (Lantus) 20 units at bedside. Patient states that does not follow a basal bolus regimen. He does a sliding scale insulin which do not follow appropriately but do inject the 20 units of Lantus daily. During the hospitalization, patient was diagnosed with hypovolemic shock in the setting of DKA and he received resuscitation with 4 L IV fluids initially followed by insulin drip. Patient received IV vancomycin and meropenem which will discontinue with the next day. Also received norepinephrine and phenylephrine for a few hours. Patient also had sinus tachycardia due to possible alcoholic withdrawal and therefore thiamine and folate were supplemented. Librium and ativan were also started. He also had KEILA likely due to vasomotor nephropathy with a hypovolemic shock and dehydration which was corrected with IV fluids. His electrolytes were supplemented. And on 07/13 he was transition to subcu insulin along with basal insulin. Diet was started and patient's nausea and vomiting resolved. He was educated on the importance of taking his insulin timely. 07/14/24 patient is hemodynamically stable, vitally stable and therefore is being discharged home with the recommendation follow up with discharge clinic appointment within 7 days, follow up with the primary care physician within 7 days. Patient agreed on discharge planning. Operations or Procedures ORDERING PHYSICIAN: ANJALI MASON RESIDENT PROCEDURE(s): CXR1 - CHEST XRAY 1 VIEW REASON: CONGESTION? ORDER NUMBER(s): [id number], ACCESSION NUMBER(s): [id number] XY CHEST XRAY 1 VIEW, HISTORY: CONGESTION COMPARISON: XY CHEST XRAY 1 VIEW on DOS: 07/11/24, XY CHEST PORTABLE on DOS: 11/30/23, XY CHEST PORTABLE on DOS: 07/03/23 XY CHEST XRAY 1 VIEW on DOS: 07/11/24, XY CHEST PORTABLE on DOS: 11/30/23, XY CHEST PORTABLE on DOS: 07/03/23 TECHNICAL DATA: 1 view of the chest was obtained. FINDINGS: Lines and tubes: None Cardiomediastinal silhouette: normal Pulmonary vasculature: normal Lung expansion: normal Lung airspace: normal Lung interstitium: normal Pleura: normal Pneumothorax: no Bones: Unremarkable Other: no IMPRESSION: No acute intrathoracic abnormality. ATED BY: GARY HINOJOSA MD DICTATED DATE/TIME: 07/14/24923 SIGNED BY: GARY HINOJOSA MD SIGNED DATE/TIME: 07/14/24923 CC: Condition at Discharge: Stable Final Diagnosis/Problems List Diabetic ketoacidosis in the setting of uncontrolled type 1 diabetes mellitus Hypovolemic shock in the setting of DKA Hypotension requiring pressors Sirs but not sepsis History of hypertension Sinus tachycardia due to alcoholic withdrawal Acute alcoholic withdrawal KEILA likely due to vasomotor nephropathy Dehydration Dyslipidemia Hypokalemia/hypomagnesemia/hypophosphatemia Thrombocytopenia Chronic Liver disease Alcohol use dependence Noncompliant Discharge Disposition: Home Discharge Instruct/Medications Diet: Consistent carbohydrate Activity: No Restrictions, As Tolerated Follow Up/Referral: FU WITH PCP IN 1 WK Medications: RESUME HOME MEDS LAB SLIP Discharge Statement: "Patient was advised to return to the ER or call 911 if any headaches, dizziness, shortness of breath, chest pain, abdominal pain, bleeding, fevers, or worsening of medical condition. Patient was counseled about treatment plan, medications, possible side effects, patientverbalized understanding. All questions were answered to the best of my ability. This discharge took greater then 30 minutes in planning, reviewing documentation, counseling the patient, and discussing with other team members." ASSESSMENT ASSESSMENT Assessment DIABETES ANJALI MASON RESIDENT Jul 14, 2024 19:01
== END 2024-07-14 15:04 | disposition home or self-care (01) | DRG 420 ==
LOC: ER 21:15 → EDBD 21:15 → TELE 23:49 → TELE-WESTW 07-13 23:46
PROVIDERS: ADMIT Internal Medicine; ATTEND Internal Medicine
DX: E10.10 Type 1 diabetes mellitus with ketoacidosis without coma (principal); N17.0 Acute kidney failure with tubular necrosis; R57.1 Hypovolemic shock; D69.6 Thrombocytopenia, unspecified; I85.00 Esophageal varices without bleeding; I47.10 Supraventricular tachycardia, unspecified; E83.39 Other disorders of phosphorus metabolism; R65.10 Systemic inflammatory response syndrome (SIRS) of non-infectious origin without acute organ dysfunction; E86.0 Dehydration; I48.91 Unspecified atrial fibrillation; E78.5 Hyperlipidemia, unspecified; E87.6 Hypokalemia; I10 Essential (primary) hypertension; E83.42 Hypomagnesemia; K76.9 Liver disease, unspecified; F10.239 Alcohol dependence with withdrawal, unspecified; Y90.0 Blood alcohol level of less than 20 mg/100 ml; Z79.4 Long term (current) use of insulin; Z82.49 Family history of ischemic heart disease and other diseases of the circulatory system; Z82.5 Family history of asthma and other chronic lower respiratory diseases; Z91.199 Patient's noncompliance with other medical treatment and regimen due to unspecified reason
CPT/HCPCS: 36415; 36600; 71045; 71250; 80048; 80053; 80061; 80307; 80320; 81001; 82010; 82805; 82962; 83036; 83605; 83735; 83930; 83935; 84100; 84132; 84156; 84300; 84443; 85025; 93005; 99291; G0378; J1815; J2003; J2185; J2250; J2405; J2470; J3480; J7060

== ENCOUNTER 2024-09-02 18:07 | Inpatient (IN) | payer MEDICAID ==
[~2024-09-02] VITALS: Ht 170.2 cm; Wt 64.7 kg
[2024-09-02] VITALS (8 sets, daily range): BP systolic 109–124; BP diastolic 64–82; PULSE 87–106; RESP 14–20; O2SAT 97–100
--- NOTE | 2024-09-02 18:19 | ED.PDOC ---
History of present illness HPI Comments 34-year-old male came to emergency room via EMS for hyperglycemia. Patient has history of diabetes. Has poor compliance to his insulin but claims he last took his insulin last night. Has been admitted multiple times for diabetic ketoacidosis. For the past few hours, he has been having shortness of breath, nausea, polydipsia and polyuria. Blood sugar read "high" twice. Chief Complaint: Hyperglycemia Time Seen by MD: 18:17 Primary Care Provider: ESTRADA History of present illness: [place] [employer] Notes Allergies: Coded Allergies: NO KNOWN ALLERGIES (Unverified , 06/03/22) Home Meds Active Scripts Insulin Lispro (Human) (Humalog) 100 Unit/Ml Inj, 10 UNIT SC TID, #1000 UNITS Prov:VIJAY FELIX MD 03/29/24 Insulin Glargine (Lantus) 100 Unit/Ml Inj, 25 UNIT SC DAILY, #1000 UNITS Prov:VIJAY FELIX MD 03/29/24 Pantoprazole Sodium Sesquihydr (Pantoprazole Sodium) 40 Mg Tab, 40 MG PO ISHAN LY@0600 for 30 Days, #30 TAB Prov:RIZWANA RODRIGUEZ RESIDENT 12/03/23 Insulin Aspart (Insulin Aspart Flexpen) 100 Unit/Ml Inj, 100 UNIT SC ACHS for 60 Days, #3 INJ Blood sugar 150 to 250: 2 units Blood sugar 251 to 350: 4 units Blood sugar 351 to 400: 6 units Blood sugar 401 and above: 8 units and go to emergency room Prov:COREEN VILLALTA NP 07/05/23 Insulin Glargine (Basaglar Kwikpen) 100 Unit/Ml Inj, 20 UNIT SC DAILY for 30 Days, #5 UNITS Prov:VERENA BAUTISTA MD 11/07/21 Insulin Regular (Human) (Novolin R) 100 Unit/Ml Inj, 1-15 UNITS SC Q6HPRN PRN for 30 Days, #5 INJ 0 Refills take 1-15 units Q6hr ACHS per sliding scale Prov:VERENA BAUTISTA MD 11/07/21 Atorvastatin Calcium (Lipitor) 20 Mg Tab, 1 TAB PO DAILY, #30 TAB Prov:VERENA BAUTISTA MD 11/07/21 Information Source: Patient, Emergency Med Personnel Mode of Arrival: EMS Timing: Hours Duration: Since onset Prehospital treatment: Accucheck Given: Shaky, Sweaty Symptoms: Anxious, Shaky, Sweaty History of: Diabetes, Insulin use Associated signs and symptoms: Nausea Past Medical History PAST MEDICAL HISTORY: DM, High Lipids, HTN, Liver, Seizures Past Medical History (Other): Diabetic ketoacidosis Surgical History: Denies all surgeries Family History Family History: Reviewed,noncontributory to illness Social History Smoker: Non-Smoker Alcohol: Heavy Drugs: Denies Drug Use Lives In: Home Constitutional: reports: fatigue, weakness; denies: chills, diaphoresis, fever, malaise, sweats, others EENTM: denies: blurred vision, double vision, ear bleeding, ear discharge, ear drainage, ear pain, ear ringing, eye pain, eye redness, hearing loss, mouth pain, mouth swelling, nasal discharge, nose bleeding, nose congestion, nose medhat n, photophobia, tearing, throat pain, throat swelling, voice changes, others Respiratory: reports: SOB at rest, shortness of breath, SOB with excertion; denies: cough, hemoptysis, orthopnea, stridor, wheezing, others Cardiovascular: denies: chest pain, dizzy spells, diaphoresis, Dyspnea on exertion, edema, irregular heart beat, left arm pain, lightheadedness, palpitations, PND, syncope, others Gastrointestinal: denies: abdomen distended, abdominal pain, blood streaked bowels, constipated, diarrhea, dysphagia, difficulty swallowing, hematemesis, melena, nausea, poor appetite, poor fluid intake, rectal bleeding, rectal pain, vomiting, others Genitourinary: denies: burning, dysuria, flank pain, frequency, hematuria, incontinence, penile discharge, penile sore, pain, testicle pain, testicle swelling, urgency, others Neurological: denies: dizziness, fainting, headache, left sided numbness, left sided weakness, numbness, paresthesia, pre-existing deficit, right sided num bness, right sided weakness, seizure, speech problems, tingling, tremors, weakness, others Musculoskeletal: denies: back pain, gout, joint pain, joint swelling, muscle pain, muscle stiffness, neck pain, others Integumetry: denies: bruises, change in color, change in hair/nails, dryness, laceration, lesions, lumps, rash, wounds, others Allergic/Immunocompromised: denies: Difficulty Healing, Frequent Infections, Hives, Itching, others Hematologic/Lymphatic: denies: anemia, blood clots, easy bleeding, easy bruising, swollen glands, others Endocrine: reports: excessive thirst, excessive urination; denies: excessive hunger, excessive sweating, flushing, intolerance to cold, intolerance to heat, unexplained weight gain, unexplained weight loss, others Psychiatric: denies: anxiety, bipolar disorder, depression, hopeless, panic disorder, schizophrenia, sleepless, suicidal, others Physical Exam General Appearance: No Apparent Distress, Normal HEENT: Normal ENT Inspection, Pharynx Normal, TMs Normal Neck: Full Range of Motion, Non-Tender, Normal, Normal Inspection Respiratory: Chest Non-Tender, Lungs Clear, No Accessory Muscle Use, No Respiratory Distress, Normal Breath Sounds Cardiovascular: No Edema, No JVD, No Murmur, No Gallop, Normal Peripheral Pulses, Regular Rate/Rhythm Breast Exam: Deferred Gastrointestinal: No Organomegaly, Non Tender, No Pulsatile Mass, Normal Bowel Sounds, Soft Genitalia: Deferred Pelvic: Deferred Rectal: Deferred Extremities: No calf tenderness, Normal capillary refill, Normal inspection, Normal range of motion, Non-tender, No pedal edema Musculoskeletal : Apperance: Normal Neurologic: Alert, drop forger helper II-XII nml as Tested, No Motor Deficits, Normal Affect, Normal Mood, No Sensory Deficits Cerebellar Function: Normal Reflexes: Normal Skin: Dry, Normal Color, Warm Lymphatic: No Adenopathy Was a procedure done? Was a procedure done?: No Differential Diagnosis (DM) Differential Diagnosis: Dehydration, DKA, Electrolyte Abnormality, Encephalopathy, Gastritis, Gastroenteritis, Hyperglycemia X-Ray, Labs, Meds, VS Vital Signs Date Time Temp Pulse Resp B/P (MAP) Pulse Ox O2 Delivery O2 Flow Rate FiO2 09/02/24 19:44 87 19 98 Room Air* 0 21 09/02/24 19:30 97.9 87 19 108/73 (85) 99 97.9 09/02/24 19:05 170 113/87 09/02/24 19:00 174 20 113/87 (96) 98 09/02/24 18:45 178 09/02/24 18:43 163 09/02/24 18:18 106 20 98 Room Air* 0 21 09/02/24 18:18 97.3 106 20 157/99 (118) 98 97.3 09/02/24 18:13 97.8 97 32 136/81 (99) 98 Lab Test 09/02/24 18:32 09/02/24 18:27 Range/Units White Blood Count 17.2 H 4.4-10.8 10^3/uL Red Blood Count 5.82 4.5-5.90 10^6/uL Hemoglobin 16.6 13.5-17.5 g/dL Hematocrit 50.4 41.0-53.0 % Mean Corpuscular Volume 86.7 80.0-100.0 fL Mean Corpuscular Hemoglobin 28.5 28.0-32.0 pg Mean Corpuscular Hemoglobin Concent 32.9 32.0-36.0 g/dL Red Cell Distribution Width 14.6 H 11.8-14.3 % Platelet Count 257 140-450 10^3/uL Mean Platelet Volume 8.2 6.9-10.8 fL Neutrophils (%) (Auto) 93.3 H 37.0-80.0 % Lymphocytes (%) (Auto) 1.2 L 10.0-50.0 % Monocytes (%) (Auto) 4.9 0.0-12.0 % Eosinophils (%) (Auto) 0.0 0.0-7.0 % Basophils (%) (Auto) 0.6 0.0-2.0 % Neutrophils # (Auto) 16.1 H 1.6-8.6 10 ^3/uL Lymphocytes # (Auto) 0.2 L 0.4-5.4 10 ^3/uL Monocytes # (Auto) 0.8 0-1.3 10 ^3/uL Eosinophils # (Auto) 0 0-0.8 10 ^3/uL Basophils # (Auto) 0.1 0-0.2 10 ^3/uL Nucleated Red Blood Cells 0.2 % Sodium Level 120 L 136-145 mmol/L Potassium Level 4.6 3.5-5.1 mmol/L Chloride Level 74 L 98-107 mmol/L Carbon Dioxide Level < 10 *L 20-31 mmol/L Anion Gap 36.07958 H 5-15 Blood Urea Nitrogen 60 H 9-23 mg/dL Creatinine 2.94 H 0.700-1.30 mg/dL Glomerular Filtration Rate Calc 28 >90 mL/min BUN/Creatinine Ratio 20.4 H 10.0-20.0 Serum Glucose 759 *H 74-106 mg/dL Calcium Level 8.0 L 8.7-10.4 mg/dL Total Bilirubin 0.7 0.2-1.0 mg/dL Aspartate Amino Transferase (AST) 10 L 13-40 U/L Alanine Aminotransferase (ALT) 10 7-40 U/L Alkaline Phosphatase 153 H 46-116 U/L Total Protein 8.2 5.7-8.2 g/dL Albumin 5.1 H 3.2-4.8 g/dL Beta-Hydroxybutyric Acid > 4.500 H < 0.4 mmol/L Plasma/Serum Blood Alcohol Pending Blood Gas Specimen Type Venous Blood Gas Sample Site Vbg - n/a Blood Gas Patient Temperature 37.0 Arterial Blood Date Drawn [id number] Baljit Test N/a Venous Blood pH 7.098 *L 7.320-7.430 Venous Blood pCO2 at Patient Temp 19.1 L 38.0-54.0 mmHg Venous Blood pO2 at Patient Temp 44.2 23.0-48.0 mmHg Venous Blood HCO3 5.8 L 22.0-29.0 mmol/L Venous Blood Base Excess -22.0 L -2.0-3.0 mmol/L Blood Gas Modality Room air Blood Gas Spontaneous Rate 24 FiO2 % 21.0 Blood Gas Critical Value Read Back yes Blood Gas Notified Whom md wandy anton Blood Gas Notified Time [id number] Blood Gas Notified By bottle washer anuel genao Current Medications Medications (Trade) Dose Ordered Sig/Lazaro Route Start Time Stop Time Status Last Admin Insulin Human Regular (InsuLIN R) 4 units ONCE ONCE IV 09/02/24 18:30 09/02/24 18:31 DC 09/02/24 18:47 Amiodarone HCl 100 ml @ 600 mls/hr ONCE ONCE IV 09/02/24 18:30 09/02/24 18:39 DC 09/02/24 18:59 Metoprolol Tartrate (Lopressor) 5 mg ONCE ONCE IV 09/02/24 19:00 09/02/24 19:01 DC 09/02/24 19:05 Time of 1ST Reevaluation: 18:14 Reevaluation 1ST: Unchanged Patient Education/Counseling: Diagnosis, Treatment Family Education/Counseling: No Family Present Departure 1 Departure Time of Disposition: 19:54 Impression: Primary Impression: Diabetic ketoacidosis Additional Impressions: Alcohol abuse Atrial fibrillation Ventricular tachycardia (paroxysmal) Disposition: ADMITTED INPATIENT Admit to: ICU Condition: Critical Discharged With: Self Comments Diabetic Ketoacidosis with Cardiac Arrhythmias Chief Complaint: Nausea and vomiting with malaise History of Present Illness: 34-year-old male with history of type 1 diabetes and alcohol abuse presents with nausea, vomiting, malaise, and generalized weakness for the past day. Patient reports last using insulin approximately 24 hours ago. He has a previous history of diabetic ketoacidosis (DKA) and states current symptoms feel similar to his prior episodes. During ED evaluation, patient developed cardiac complications including runs of wide complex tachycardia and atrial fibrillation, requiring immediate intervention. Review of Systems: Constitutional: Positive for generalized weakness, malaise Gastrointestinal: Positive for nausea and vomiting Cardiovascular: Positive for arrhythmias All other systems: Deferred due to patient condition Medications: Insulin (type not specified) New medications during ED visit: - Amiodarone 150mg IV bolus followed by infusion - Insulin infusion - Lopressor 5mg IV Allergies: No known allergies documented Past Medical History: 1. Type 1 Diabetes Mellitus 2. History of Diabetic Ketoacidosis 3. Alcohol Abuse Lab Results: Blood Chemistry: - Glucose: 759 mg/dL - pH: 7.1 - CO2: <10 mEq/L - Anion gap: 36 - Sodium: 120 mEq/L - Potassium: 4.6 mEq/L Ketone Studies: - Acetone: >4.5 - Beta-hydroxybutyrate: Elevated Imaging and Other Relevant Results: No imaging studies documented in icing mixer Medical Decision Making: Summary Statement: 34-year-old male with type 1 diabetes presenting with severe DKA complicated by cardiac arrhythmias, requiring immediate stabilization and ICU admission. Problem List: 1. Diabetic Ketoacidosis 2. Wide Complex Tachycardia 3. Atrial Fibrillation 4. Alcohol Abuse 5. Electrolyte Abnormalities Differential Diagnosis: 1. Severe DKA 2. Alcohol-induced arrhythmias 3. Electrolyte-induced arrhythmias 4. Underlying structural heart disease 5. Medication non-compliance ED Course: Patient received aggressive IV fluid rehydration and insulin infusion for DKA. Developed wide complex tachycardia requiring amiodarone 150mg bolus followed by infusion. Also experienced atrial fibrillation, treated with Lopressor 5mg IV with conversion to normal sinus rhythm. Assessment and Plan: 1. Diabetic Ketoacidosis: - Severe presentation with pH 7.1, glucose 759, and significant ketosis - Continue insulin infusion - Aggressive IV fluid resuscitation - Frequent electrolyte monitoring 2. Cardiac Arrhythmias: - Wide complex tachycardia and atrial fibrillation, now resolved - Continue amiodarone infusion - Cardiac monitoring 3. Alcohol Abuse: - Assess for withdrawal risk - Consider addiction medicine consultation Disposition: Admit to ICU for management of DKA and cardiac monitoring Billing Information: ICD-10: E11.11 - Type 1 diabetes mellitus with ketoacidosis ICD-10: I47.2 - Ventricular tachycardia ICD-10: I48.91 - Atrial fibrillation, unspecified ICD-10: F10.20 - Alcohol dependence, uncomplicated ICD-10: E87.2 - Acidosis Critical Care Note Critical Care Time?: Yes (35 min-critical care time only) Critical care comment: Hyperglycemia Total critical care time: Approximately 36 minutes Due to a high probability of clinically significant, life threatening deterioration, the patient required my highest level of preparedness to interve ne emergently and I personally spent this critical care time directly and personally managing the patient. This critical care time included obtaining a history; examining the patient; pulse oximetry; ordering and review of studies; arranging urgent treatment with development of a management plan; evaluation of patient's response to treatment; frequent reassessment; and, discussions with other providers. This critical care time was performed to assess and manage the high probability of imminent, life-threatening deterioration that could result in multi-organ failure. It was exclusive of separately billable procedures and treating other patients. Stability Stability form required: No Heart Score Heart Score: Heart Score Response (Comments) Value History Slightly Suspicious 0 EKG Normal 0 Age <45 0 Risk Factors 1 or 2 risk factors 1 Troponin Normal limit 0 Total 1 I personally scribed for TRAVIS ANTON MD ([email or web address]) on 09/02/24 at 18:19. Electronically submitted by Phillip Brody ([email or web address]). I personally scribed for TRAVIS ANTON MD ([email or web address]) on 09/02/24 at 18:38. Electronically submitted by Phillip Brody ([email or web address]). TRAVIS ANTON MD Sep 02, 2024 18:19
[2024-09-02] MEDS: SODIUM CHLORIDE 0.9% 1,000 ML IVB ONE (18:30)
[2024-09-02] MEDS: InsuLIN REG 1unit/0.01ml Soln (100units/ml) IV ONE (18:47)
[2024-09-02] MEDS: AMIODARONE BOLUS KIT 100 ML IV ONE ×2 (18:59→19:05)
[2024-09-02] MEDS: AMIODARONE 360mg/200mL PREMIX 200 ML IV ONE ×2 (18:59→23:37)
[2024-09-02 19:00] LABS: Basophils # (auto) 0.1 10 ^3/uL (0-0.2); Basophils % (auto) 0.6 % (0.0-2.0); Eosinophils # (auto) 0 10 ^3/uL (0-0.8); Hematocrit 50.4 % (41.0-53.0); Hemoglobin 16.6 g/dL (13.5-17.5); Lymphocytes # (auto) 0.2 10 ^3/uL (0.4-5.4); Lymphocytes % (auto) 1.2 % (10.0-50.0); Mean Corpuscular Hemoglobin 28.5 pg (28.0-32.0); Mean Corpuscular Hgb Conc. 32.9 g/dL (32.0-36.0); Mean Corpuscular Volume 86.7 fL (80.0-100.0); Monocytes # (auto) 0.8 10 ^3/uL (0-1.3); Monocytes % (auto) 4.9 % (0.0-12.0); Neutrophils # (auto) 16.1 10 ^3/uL (1.6-8.6); Neutrophils % (auto) 93.3 % (37.0-80.0); Nucleated Red Blood Cells % 0.2 %; Platelet Count (auto) 257 10^3/uL (140-450); Red Blood Cells 5.82 10^6/uL (4.5-5.90); Red Cell Distribution Width 14.6 % (11.8-14.3); White Blood Cell 17.2 10^3/uL (4.4-10.8)
[2024-09-02] MEDS: SODIUM CHLORIDE 0.9% 1,000 ML IV ONE (19:00)
[2024-09-02] MEDS: METOPROLOL TARTRATE 1MG/1ML-5ML VIAL IV ONE ×2 (19:05→19:37)
[2024-09-02 19:21] LABS: Alanine Aminotransferase 10 U/L (7-40); Anion Gap 36.00001 (5-15); BUN/Creatinine Ratio 20.4 (10.0-20.0); Bilirubin, Total 0.7 mg/dL (0.2-1.0); Potassium 4.6 mmol/L (3.5-5.1)
[2024-09-02 19:29] LABS: Chloride 74 mmol/L (98-107); Sodium 120 mmol/L (136-145)
[2024-09-02 19:38] LABS: Albumin 5.1 g/dL (3.2-4.8); Alkaline Phosphatase 153 U/L (46-116); Aspartate Aminotransferase 10 U/L (13-40); Blood Urea Nitrogen 60 mg/dL (9-23); Carbon Dioxide < 10 mmol/L (20-31); Glucose 759 mg/dL (74-106); Total Protein 8.2 g/dL (5.7-8.2)
[2024-09-02] MEDS: METOPROLOL TARTRATE 25 MG TAB PO ONE (19:39)
[2024-09-02] MEDS ORDERED: DEXTROSE (50%) 50ML SYRG IV PRN (19:45)
[2024-09-02 19:49] LABS: Blood Alcohol 4.7 mg/dL (<10)
[2024-09-02] MEDS: INSULIN DRIP 100 UNIT/100ML 100 ML IV SCH (20:05)
[2024-09-02] MEDS: SODIUM CHLORIDE 0.9% 1,000 ML IV SCH (20:06)
[2024-09-02 20:30] LABS: Anion Gap 36.00001 (5-15); Potassium 4.1 mmol/L (3.5-5.1)
[2024-09-02 20:36] LABS: BUN/Creatinine Ratio 27.5 (10.0-20.0)
[2024-09-02] MEDS ORDERED: NITROGLYCERIN 0.4 MG SL TAB SL PRN (20:45)
[2024-09-02] MEDS ORDERED: MORPHINE SULFATE INJ 2 MG/ml SYRG IV PRN (20:45)
[2024-09-02] MEDS ORDERED: POTASSIUM CHL 20MEQ/100ML 100 ML IV PRN (20:45)
[2024-09-02 20:46] LABS: Blood Urea Nitrogen 79 mg/dL (9-23); Calcium 8.1 mg/dL (8.7-10.4); Chloride 77 mmol/L (98-107); Sodium 123 mmol/L (136-145)
[2024-09-02 20:48] LABS: Magnesium 3.2 mg/dL (1.6-2.6); Phosphorus 9.9 mg/dL (2.4-5.1)
[2024-09-02 20:50] LABS: Carbon Dioxide < 10 mmol/L (20-31); Glucose 708 mg/dL (74-106)
[2024-09-02] MEDS: ACCU-CHEK COMFORT CURVE STRIP VI SCH (20:58)
[2024-09-02 21:07] LABS: Base Excess -19.3 mmol/L (-2.0-3.0)
[2024-09-02 21:25] LABS: Urine Bacteria None Seen /hpf (None Seen)
[2024-09-02] MEDS: MEROPENEM 500MG IVPB 50 ML IV ONE (21:27)
[2024-09-02 21:34] LABS: Urine Blood TRACE /uL (Negative); Urine Clarity Clear (Clear); Urine Color Colorless (Yellow); Urine Mucus FEW (None Seen); Urine Protein, UAD TRACE (Negative); Urine Specific Gravity 1.016 (1.001-1.035); Urine Squamous Epithelial Cell None Seen /hpf (<5); Urine Urobilinogen Normal (Negative); Urine WBC 1 /HPF (0-3)
[2024-09-02 21:39] LABS: Lactic Acid w/Reflex 2.1 mmol/L (0.4-2.0)
[2024-09-02 21:47] LABS: Amphetamine Screen, Urine Neg (NEGATIVE); Barbiturate Scree,Urine Neg (NEGATIVE); Benzodiazephine Screen, Urine Neg (NEGATIVE); Cannabinoid Screen, Urine Neg (NEGATIVE); Cocaine Screen, Urine Neg (NEGATIVE); Opiate Scree,Urine Neg (NEGATIVE); Phencyclidine Screen, Urine Neg (NEGATIVE)
[2024-09-02] MEDS ORDERED: MEROPENEM 500MG IVPB 50 ML IV SCH (22:00)
[2024-09-02] MEDS: LINEZOLID 600MG/300ML 300 ML IV SCH (22:37)
[2024-09-02] MEDS: SOD CHL 0.45% 1,000 ML IV SCH (23:36)
[2024-09-02] MEDS ORDERED: SODIUM CHLORIDE 0.9% 1,000 ML IV SCH (23:45)
[2024-09-03] VITALS (32 sets, daily range): BP systolic 109–163; BP diastolic 68–106; PULSE 65–115; RESP 11–20; TEMP 97.7–98.2; O2SAT 95–100
[2024-09-03 00:51] LABS: COVID19 ANTIGEN SOFIA FIA NEGATIVE (NEGATIVE); Rapid Influenza A Negative (Negative); Rapid Influenza B Negative (Negative)
[2024-09-03] MEDS: ENOXAPARIN SOD 100 MG/1 ML SYRINGE SC ONE (01:43)
[2024-09-03] MEDS ORDERED: SODIUM CHLORIDE 0.9% 1,000 ML IV SCH (01:45)
[2024-09-03 02:34] LABS: Anion Gap 23 (5-15)
[2024-09-03 02:39] LABS: BUN/Creatinine Ratio 25.8 (10.0-20.0)
[2024-09-03 02:41] LABS: Blood Urea Nitrogen 48 mg/dL (9-23); Calcium 7.9 mg/dL (8.7-10.4); Carbon Dioxide 14 mmol/L (20-31); Chloride 96 mmol/L (98-107); Glucose 308 mg/dL (74-106); Potassium 2.9 mmol/L (3.5-5.1); Sodium 133 mmol/L (136-145)
--- NOTE | 2024-09-03 03:04 | DVHHPRES ---
History of Present Illness Resident Creating Document: ABDIRAHMAN FLOYD RESIDENT Reason for Visit: DKA History of Present Illness This is a 34-year-old male with a history of type 1 diabetes mellitus (poor compliance with insulin), hypertension, dyslipidemia, alcohol abuse, and multiple prior admissions for diabetic ketoacidosis, who presented to the ED with worsening polyuria, polydipsia, dizziness. He states that his last insulin shot was yesterday night and he started to have symptoms at 7 am today Upon arrival, the patient was lethargic with Kussmaul respirations, and blood glucose was 759 mg/dL. He was started on an insulin drip a, aggressive IV fluids, and potassium replacement. The patient was also empirically started on meropenem and linezolid for possible septic shock, with blood cultures drawn. Nephrology was consulted for acute kidney injury The patient had episodes of afib and NS VTs around 6pm, so it was started on amiodarone drip now with sinus rhythm and PVCs Past Medical History Diabetes Mellitus Type 1 (insulin-dependent, poor compliance) Hypertension Dyslipidemia Ethanol abuse Multiple prior DKA admissions Previous atrial fibrillation with RVR (seen during last admission in Jul 2024) Medications Insulin Glargine: 20 UI only, atorvastatin and pantoprazole Smoker: Non-Smoker Alcohol: Heavy Drugs: Denies Drug Use Lives In: Home Review of Systems Constitutional: No: Fever, Chills, Sweats, Weakness, Malaise, Other Eyes: No: Pain, Vision change, Conjunctivae inflammation, Eyelid inflammation, Other, Redness ENT: No: Ear pain, Ear discharge, Nose pain, Nose discharge, Nose congestion, Mouth pain, Mouth swelling, Throat pain, Throat swelling, Other Respiratory: No: Cough, Dry, Shortness of breath, SOB with excertion, Wheezing, Hemoptysis, Pleuritic Pain, Sputum, Wheezing, Other Cardiovascular: No: Chest Pain, Palpitations, Orthopnea, Paroxysmal Noc. Dyspnea, Edema, Lt Headedness, Other Gastrointestinal: No: Nausea, Vomiting, Abdominal Pain, Diarrhea, Constipation, Melena, Hematochezia, Other Genitourinary: No Dysuria, No Frequency, No Incontinence, No Hematuria, No Retention, No Other Musculoskeletal: No: other, neck pain, shoulder pain, arm pain, back pain, hand pain, leg pain, foot pain Skin: No: Rash, Lesions, Jaundice, Bruising, Other Neurological: No: Weakness, Numbness, Incoordination, Change in speech, Confus ion, Seizures, Other Allergies: Coded Allergies: NO KNOWN ALLERGIES (Unverified , 06/03/22) Medications Current Medications Medications Dose Ordered Sig/Lazaro Route Start Time Stop Time Status Last Admin Dose Admin Insulin Human (Reg)/Sodium Chloride 100 ml @ 0.5 mls/hr Q24H IV 09/02/24 19:45 09/02/24 20:05 6 MLS/HR Dextrose 50 ml UD PRN IV 09/02/24 19:45 Diagnostic Test (Pha) 1 strip Q90MIN 09/02/24 21:00 09/03/24 01:40 1 STRIP Nitroglycerin 0.4 mg Q5MINP PRN SL 09/02/24 20:45 Morphine Sulfate 2 mg Q30M PRN IV 09/02/24 20:45 Potassium Chloride 200 ml @ 50 mls/hr ONCE PRN IV 09/02/24 20:45 09/03/24 18:44 Potassium Chloride 100 ml @ 50 mls/hr ONCE PRN IV 09/02/24 20:45 09/03/24 18:44 Linezolid 300 ml @ 150 mls/hr Q12HR IV 09/02/24 22:00 09/02/24 22:37 150 MLS/HR Meropenem 50 ml @ 17 mls/hr Q12HR IV 09/02/24 22:00 UNV Meropenem 50 ml @ 17 mls/hr Q12HR IV 09/03/24 10:00 Sodium Chloride 1,000 ml @ 250 mls/hr Q4H IV 09/02/24 21:45 09/02/24 23:36 250 MLS/HR Enoxaparin Sodium 70 mg DAILY@0100 SC 09/04/24 01:00 UNV Exam Vital Signs Vital Signs Date Time Temp Pulse Resp B/P (MAP) Pulse Ox O2 Delivery O2 Flow Rate FiO2 09/03/24 00:08 97.7 90 14 121/83 (96) 100 97.7 09/03/24 00:00 Room Air* 0 21 General Appearance: Other (drowsy ) HEENT: Atraumatic, PERRLA Respiratory: Clear to auscultation Cardiovascular: Other (tachycardic ) Abdominal: Soft Extremities: No clubbing, No edema Skin: No rashes, No breakdown Neuro: Other (drowsy ) Psych/Mental Status: Mental status NL Labs/Xrays Labs Test 09/03/24 02:00 09/03/24 01:39 09/02/24 23:30 09/02/24 22:55 Range/Units POC Glucose 333 H 70-106 mg/dl Troponin I High Sensitivity 24 </=54 ng/L Influenza Type A Antigen Negative Negative Influenza Type B Antigen Negative Negative SARS-CoV-2 Antigen (Rapid) Negative NEGATIVE Test 09/02/24 22:41 09/02/24 21:00 09/02/24 20:56 09/02/24 18:32 Range/Units Lactic Acid Level 2.1 *H 0.4-2.0 mmol/L Urine Color Colorless Yellow Urine Clarity Clear Clear Urine pH 5.0 5.0-9.0 Urine Specific S[place]y 1.016 1.001-1.035 Urine Protein Trace H Negative Urine Ketones 3+ H Negative Urine Blood Trace H Negative /uL Urine Nitrite Negative Negative Urine Bilirubin Negative Negative Urine Urobilinogen Normal Negative mg/dL Urine Leukocyte Esterase Negative Negative /uL Urine RBC <1 0 - 3 /hpf Urine Microscopic WBC 1 0-3 /HPF Urine Squamous Epithelial Cells None seen <5 /hpf Urine Bacteria None seen None Seen /hpf Urine Mucus Few None Seen Urine Glucose 4+ H Normal mg/dL Urine Opiates Screen Neg NEGATIVE Urine Fentanyl Screen Neg NEGATIVE Urine Barbiturates Screen Neg NEGATIVE Urine Phencyclidine Screen Neg NEGATIVE Urine Amphetamines Screen Neg NEGATIVE Urine Benzodiazepines Screen Neg NEGATIVE Urine Cocaine Screen Neg NEGATIVE Urine Cannabinoids Screen Neg NEGATIVE Blood Gas Specimen Type Arterial Blood Gas Sample Site Right radial Blood Gas Patient Temperature 37.0 Arterial Blood Date Drawn [id number] Arterial Blood pH 7.212 *L 7.350-7.450 Arterial Blood Partial Pressure CO2 14.5 *L 35.0-48.0 mmHg Arterial Blood Partial Pressure O2 128.0 H 83.0-108.0 mmHg Arterial Blood HCO3 5.7 L 21.0-28.0 mmol/L Arterial Blood Oxygen Saturation 98.1 H 94.0-98.0 % Arterial Blood Base Excess -19.3 L -2.0-3.0 mmol/L Arterial Blood Oxyhemoglobin 96.7 94.0-98.0 % Arterial Blood Carboxyhemoglobin 0.8 0.5-1.5 % Arterial Blood Methemoglobin 0.6 0.0-1.5 % Baljit Test Yes Blood Gas Total Hemoglobin 15.90 13.5-17.5 g/dL Blood Gas Modality Room air Blood Gas Spontaneous Rate 24 FiO2 % 21.0 Blood Gas Critical Value Read Back yes Blood Gas Notified Whom md wandy kinney Blood Gas Notified Time [id number] Blood Gas Notified By birgit morillo White Blood Count 17.2 H 4.4-10.8 10^3/uL Red Blood Count 5.82 4.5-5.90 10^6/uL Hemoglobin 16.6 13.5-17.5 g/dL Hematocrit 50.4 41.0-53.0 % Mean Corpuscular Volume 86.7 80.0-100.0 fL Mean Corpuscular Hemoglobin 28.5 28.0-32.0 pg Mean Corpuscular Hemoglobin Concent 32.9 32.0-36.0 g/dL Red Cell Distribution Width 14.6 H 11.8-14.3 % Platelet Count 257 140-450 10^3/uL Mean Platelet Volume 8.2 6.9-10.8 fL Neutrophils (%) (Auto) 93.3 H 37.0-80.0 % Lymphocytes (%) (Auto) 1.2 L 10.0-50.0 % Monocytes (%) (Auto) 4.9 0.0-12.0 % Eosinophils (%) (Auto) 0.0 0.0-7.0 % Basophils (%) (Auto) 0.6 0.0-2.0 % Neutrophils # (Auto) 16.1 H 1.6-8.6 10 ^3/uL Lymphocytes # (Auto) 0.2 L 0.4-5.4 10 ^3/uL Monocytes # (Auto) 0.8 0-1.3 10 ^3/uL Eosinophils # (Auto) 0 0-0.8 10 ^3/uL Basophils # (Auto) 0.1 0-0.2 10 ^3/uL Nucleated Red Blood Cells 0.2 % Hemoglobin A1c 10.0 H <5.7 % A1C Serum Osmolality 357 H 278-298 mOsm/kg Phosphorus Level 9.9 H 2.4-5.1 mg/dL Magnesium Level 3.2 H 1.6-2.6 mg/dL Total Bilirubin 0.7 0.2-1.0 mg/dL Aspartate Amino Transferase (AST) 10 L 13-40 U/L Alanine Aminotransferase (ALT) 10 7-40 U/L Alkaline Phosphatase 153 H 46-116 U/L Creatine Kinase 116 46-171 U/L Total Protein 8.2 5.7-8.2 g/dL Albumin 5.1 H 3.2-4.8 g/dL Lipase 42 12-53 U/L Beta-Hydroxybutyric Acid > 4.500 H < 0.4 mmol/L Plasma/Serum Blood Alcohol 4.7 <10 mg/dL Test 09/02/24 18:27 Range/Units Venous Blood pH 7.098 *L 7.320-7.430 Venous Blood pCO2 at Patient Temp 19.1 L 38.0-54.0 mmHg Venous Blood pO2 at Patient Temp 44.2 23.0-48.0 mmHg Venous Blood HCO3 5.8 L 22.0-29.0 mmol/L Venous Blood Base Excess -22.0 L -2.0-3.0 mmol/L Assessment/Plan Assessment/Plan Labs CBC: WBC 17.2 (elevated) Chemistry: pseudohyponatremia, K 4.6 Creatinine 2.94 (KEILA, no prior CKD) Anion gap 36 Serum glucose 759 mg/dL Beta-hydroxybutyrate >14,500 Mg 3.2 phosphorus 9.9 Blood Gas 7.21 (arterial, acidotic) pCO2: 14.5 (low, compensatory respiratory alkalosis) HCO3: 5.8 (low, metabolic acidosis) O2 sat: 98.1% Assessment & Plan #Acute metabolic encephalopathy due to DKA and possible sepsis #Diabetic Ketoacidosis #Hyperphosphatemia due to DKA #Hypermagnesemia due to DKA #Hypokalemia Insulin drip started at 0.5 units/hr (continue until anion gap below 10) stopped at 3 am due to K 2.9, restart when K is above 3.3 IV fluids: 1/2 NS 250cc/h per Nephro: but at 3: 30 DC to start 1/2 NS+ 40mEq K+ at 100 cc/h (1st peripheral) Potassium replacement: 20 mEq/hr (2nd peripheral) Monitor glucose and anion gap No need of bicarbonate for now Start D5W when glucose 250 #Acute Kidney Injury vasomotor mediated Nephrology consulted Continue fluids & monitor renal function #Paroxysmal atrial fibrillation with RVR #Non sustained Ventricular Tachycardia Started on Amiodarone drip Enoxaparin therapeutic renal dose Now PVCs HR 90s sinus rhythm Troponins and CK are normal ECHO ordered Cardiology consulted #Sepsis? (high WBC, KEILA) Empiric Meropenem and linezolid started Panculture Chest xray pending #Medical Noncompliance #Diabetes type 1 hba1c 10 Strong reinforcement of medication adherence Patient will need stronger home insulin regimen than glargine 20 ui Disposition Admit to ICU for DKA management, KEILA, and cardiac monitoring Continue insulin drip, fluids, and electrolyte correction Monitor for rhythm disturbances Nephrology to follow for KEILA Cardiology due to arrhythmias Case discussed with Dr Keating Plan discussed with: Patient, Other (rn) My Orders Orders - ABDIRAHMAN FLOYD RESIDENT Procedure Category Date Status Time Admit ADMIT 09/02/24 Transmitted 20:31 Nitroglycerin PHA 09/02/24 In Process Sublingual (Ntrostat 20:45 Morphine Sulfate PHA 09/02/24 In Process Injection 20:45 Oxygen By Nasal RT 09/02/24 Transmitted Cannula 20:31 Stat Ekg For Chest JAYSHREE 09/02/24 In Process Pain 20:31 Notify Md Of Changes JAYSHREE 09/02/24 In Process From Base 20:31 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 JAYSHREE 09/02/24 In Process 24 Hours 20:31 Emergency Dysrhythmia JAYSHREE 09/02/24 In Process Protocol 20:31 Rhythm Strips Once JAYSHREE 09/02/24 In Process Every Shift 20:31 Blood Culture JENI 09/02/24 In Process 20:31 Urine Bacterial JENI 09/02/24 In Process Culture 20:31 Respiratory Culture JENI 09/02/24 Logged W/ Gs 20:31 Potassium Chl PHA 09/02/24 In Process 20meq/100ml 20:45 Potassium Chl PHA 09/02/24 In Process 20meq/100ml 20:45 Linezolid 600mg/300ml PHA 09/02/24 In Process (Zyvox) 22:00 Abg W/ Co-Ox RT 09/02/24 Logged 20:36 Insert Avalos Catheter JAYSHREE 09/02/24 In Process 20:45 *[facility] CONS 09/02/24 Transmitted -[place] 20:52 Meropenem 1gm Ivpb PHA 09/03/24 In Process (Merrem 1gm/ Ns) 10:00 Basic Metabolic Panel LAB 09/03/24 In Process 02:00 Basic Metabolic Panel LAB 09/03/24 Logged 06:00 Basic Metabolic Panel LAB 09/03/24 Logged 10:00 Basic Metabolic Panel LAB 09/03/24 Logged 14:00 Enoxaparin Sodium PHA 09/04/24 Pending (Lovenox) 01:00 Amiodarone PHA 09/03/24 In Process 360mg/200ml Premix 08:45 Date of Service: Sep 02, 2024 Billing Provider: MARY KEATING MD Common Visit Codes: [id number] INP/OBS CARE (HIGH) ABDIRAHMAN FLOYD RESIDENT Sep 03, 2024 03:04 MARY KEATING MD Sep 03, 2024 09:22
[2024-09-03] MEDS: POTASSIUM CHL 20MEQ/100ML 200 ML IV PRN (03:12)
--- NOTE | 2024-09-03 03:31 | DVH ---
CHEST RADIOGRAPH Indication: dyspnea Technique: Single frontal view of the chest was obtained COMPARISON: XY CHEST XRAY 1 VIEW on DOS: 07/14/24, XY CHEST XRAY 1 VIEW on DOS: 07/11/24, XY CHEST PORTAB LE on DOS: 11/30/23, XY CHEST PORTABLE on DOS: 07/03/23, CHEST XRAY 1 VIEW on DOS: 08/06/22 FINDINGS: Lines and Tubes: Transcutaneous pacemaker overlies the cardiac silhouette. Lungs: Clear Pleura: No effusion. No pneumothorax. Cardiomediastinal contours: Unremarkable Bones: Unremarkable IMPRESSION: 1. Clear lungs.
[2024-09-03] MEDS ORDERED: POTASSIUM CHLORIDE 40 MEQ in SOD CHL 0.45% 1,000 ML IV SCH (03:45)
[2024-09-03] MEDS: ONDANSETRON HCL 4 MG/2 ML VIAL IV PRN (04:14)
[2024-09-03] MEDS: SOD CHL 0.45% 1,000 ML IV SCH ×2 (04:15→16:36)
[2024-09-03] MEDS: POTASSIUM CHL 20MEQ/100ML 100 ML IV SCH ×2 (04:25→15:13)
[2024-09-03] MEDS: AMIODARONE 360mg/200mL PREMIX 200 ML IV SCH (05:35)
--- NOTE | 2024-09-03 06:56 | ECG ---
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
[2024-09-03 07:54] LABS: Magnesium 2.7 mg/dL (1.6-2.6); Phosphorus 3.8 mg/dL (2.4-5.1)
[2024-09-03 08:48] LABS: Hematocrit 46.2 % (41.0-53.0); Hemoglobin 15.2 g/dL (13.5-17.5); Mean Corpuscular Hemoglobin 27.4 pg (28.0-32.0); Platelet Count (auto) 156 10^3/uL (140-450); Red Blood Cells 5.56 10^6/uL (4.5-5.90); White Blood Cell 14.7 10^3/uL (4.4-10.8)
[2024-09-03 08:55] LABS: Band Neutrophils % (manual) 0; Basophils % (manual) 0 (0.0-2.0); Blast Cells 0; Eosinophils % (manual) 0 (0-7); Metamyelocytes % 0; Myelocytes % 0; Promyelocytes % 0; Reactive Lymphocytes 0
[2024-09-03 09:00] LABS: Chloride 100 mmol/L (98-107); Potassium 3.5 mmol/L (3.5-5.1); Sodium 136 mmol/L (136-145)
[2024-09-03 09:01] LABS: Anion Gap 21 (5-15)
[2024-09-03 09:02] LABS: Calcium 8.3 mg/dL (8.7-10.4); Carbon Dioxide 15 mmol/L (20-31)
[2024-09-03 09:06] LABS: BUN/Creatinine Ratio 32.7 (10.0-20.0)
[2024-09-03 09:08] LABS: Blood Urea Nitrogen 51 mg/dL (9-23); Glucose 266 mg/dL (74-106)
[2024-09-03] MEDS: D5W/SOD CHL 0.45% 1,000 ML IV SCH (10:15)
--- NOTE | 2024-09-03 10:27 | ECG ---
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
[2024-09-03 10:32] LABS: Phosphorus 2.9 mg/dL (2.4-5.1)
[2024-09-03] MEDS: MEROPENEM 1GM IVPB 50 ML IV SCH (10:32)
[2024-09-03 10:34] LABS: Magnesium 2.7 mg/dL (1.6-2.6)
[2024-09-03] MEDS: ENOXAPARIN SOD 100 MG/1 ML SYRINGE SC SCH (10:58)
[2024-09-03 11:09] LABS: Lymphocytes % (manual) 2 (10.0-50.0); Monocytes % (manual) 6 (0-12); Platelet Estimate Adequate
--- NOTE | 2024-09-03 13:30 | DVHPNRES ---
Progress Note Date Seen: Sep 03, 2024 Resident Creating Document: MILLY CORRAL RESIDENT Medical Necessity Reason Pt with a Central, PICC or Fol: No Subjective Review of Systems Luis Ortiz is a 34-year-old male patient who presents to the ED with chief complaint of polyuria, polydipsia, dizziness, fatigue and nausea and vomiting which started the day of his admission. Patient reports noncompliance with insulin treatment, and also heavy ethanol abuse (two pints of vodka every night) with a history of type 1 diabetes mellitus (poor compliance with insulin). Denies fever, chills, syncope, palpitation, chest pain, dyspnea, diarrhea, dysuria, sick contacts, recent travel and motor or sensory deficits. Past Medical History: Diabetes Mellitus Type 1 (insulin-dependent, poor compliance), hypertension, dyslipidemia, ethanol abuse, multiple admissions due to DKA, paroxysmal atrial fibrillation (chads Vasc 2/has bled 1) Surgical history: Denies Family history: Paternal family has heart disease, maternal grandmother had colon cancer Social history: Lives in [place] with mother. Heavy ethanol abuse (two pints of vodka per night). Denies current tobacco and other drug abuse Allergies: Denies Home medication: Insulin Glargine: 20 UI only, atorvastatin and pantoprazole Patient seen and examined at bedside. Patient currently feels better since admission, still is requiring insulin drip. Presented nonsustained monomorphic V-tach (probably secondary to electrolyte disbalance), initially amiodarone drip was indicated, cardiology switch to flecainide (we will benefit for paroxysmal atrial fibrillation) Objective vital signs Vital Sign Date Time Temp Pulse Resp B/P (MAP) Pulse Ox O2 Delivery O2 Flow Rate FiO2 09/03/24 13:15 98.2 80 16 128/86 (100) 99 98.2 09/03/24 08:19 Room Air* 0 21 Total Intake and Output 09/02/24 09/02/24 09/03/24 15:00 23:00 07:00 Intake Total 4217.99 ml 1549.28 ml Output Total 800 ml 2000 ml Balance 3417.99 ml -450.72 ml medications Current Medications Medications Dose Ordered Sig/Lazaro Route Start Time Stop Time Status Last Admin Dose Admin Insulin Human (Reg)/Sodium Chloride 100 ml @ 0.5 mls/hr Q24H IV 09/02/24 19:45 09/02/24 20:05 6 MLS/HR Dextrose 50 ml UD PRN IV 09/02/24 19:45 Diagnostic Test (Pha) 1 strip Q90MIN 09/02/24 21:00 09/03/24 12:00 1 STRIP Potassium Chloride 200 ml @ 50 mls/hr ONCE PRN IV 09/02/24 20:45 09/03/24 18:44 09/03/24 04:25 50 MLS/HR Potassium Chloride 100 ml @ 50 mls/hr ONCE PRN IV 09/02/24 20:45 09/03/24 18:44 Linezolid 300 ml @ 150 mls/hr Q12HR IV 09/02/24 22:00 09/03/24 10:16 150 MLS/HR Meropenem 50 ml @ 17 mls/hr Q12HR IV 09/02/24 22:00 UNV Meropenem 50 ml @ 17 mls/hr Q12HR IV 09/03/24 10:00 09/03/24 10:32 17 MLS/HR Ondansetron HCl 4 mg Q4HPRN PRN IV 09/03/24 03:30 09/03/24 10:32 4 MG Enoxaparin Sodium 70 mg Q12HR SC 09/03/24 10:00 09/03/24 10:58 70 MG Dextrose/Sodium Chloride 1,000 ml @ 200 mls/hr Q5H IV 09/03/24 10:15 09/03/24 10:15 200 MLS/HR Examination Patient lying in bed, in no acute distress General: Lucid, afebrile, mucosae are dry Cardiovascular: Tachycardia, Normal S1 and S2. No murmurs, gallops or rubs Respiratory: Normal ventilation mechanics. Clear lung sounds on auscultation Abdomen: Soft, nontender, no organomegaly, normal bowel sounds MSK/skin: Mobilizes 4 limbs. Skin is dry and warm Neurological: Oriented in 3 spheres. No motor no sensitive deficits. Pupils are isocoric and reactive laboratory and microbiology Laboratory Tests 09/03/24 08:23 Test 09/03/24 08:23 Range/Units Serum Glucose 266 H 74-106 mg/dL Problem List/Assessment/Plan Problem List/Assessment/Plan # Acute metabolic encephalopathy due to DKA versus sepsis Ordered head CT # Diabetic Ketoacidosis Required insulin drip on admission, IV fluid resuscitation (currently with half- normal saline and D5W). Once insulin drip is discontinued, we will downgrade to telemetry. Currently he is ICU status Insulin drip was discontinued due to hypokalemia and nonsustained monomorphic V- tach Nephrology on board # Questionable sepsis Patient was tachycardic and had leukocytosis on admission. Ordered pancultures (blood, sputum and urine) Currently on empiric IV antibiotic (linezolid and meropenem) # Hyperphosphatemia due to DKA IV fluids # Hypermagnesemia due to DKA IV fluids # Hypokalemia Replenish # Acute Kidney Injury vasomotor mediated Nephrology consulted Continue fluids & monitor renal function # Paroxysmal atrial fibrillation with RVR (chads Vasc 2/has bled 1) secondary hypercoagulability state Currently on enoxaparin Cardiology evaluated the patient, indicated flecainide # Non sustained Ventricular Tachycardia Additionally required amiodarone drip, currently discontinued. Cardiology evaluated: Most likely secondary to electrolyte disbalance # Medical Noncompliance Gave advice on healthy lifestyle habits # Diabetes type 1 - Uncontrolled (hemoglobin 10) Strong reinforcement of medication adherence Patient will need stronger home insulin regimen than glargine 20 ui Goals of care discussed with patient for over 18 minutes: Full code status Discussed plan with Dr. Spencer, patient and nurses: Currently patient is on insulin drip, IV fluids (half-normal saline to D5W) and optimizing electrolyte disturbance. Patient is still ICU status, we will downgrade if insulin drip is discontinued. Patient has poor prognosis. Plan discussed with: Patient, Other (Nurses and mother) My Orders My Orders Orders - MILLY CORRAL RESIDENT Procedure Category Date Status Time Enoxaparin Sodium PHA 09/03/24 In Process (Lovenox) 10:00 D5w/Sod Chl 0.45% PHA 09/03/24 In Process (D5w 1/2ns) 10:15 Date of Service: Sep 03, 2024 Billing Provider: TIM SPENCER MD Common Visit Codes: [id number] INP/OBS CARE(HIGH) MILLY CORRAL Sep 03, 2024 13:30 TIM SPENCER MD Sep 07, 2024 16:01
--- NOTE | 2024-09-03 13:43 | DVHINCON2 ---
Date Seen: Sep 03, 2024 Referring Physician MD Rick Reason for Consultation A-Fib with RVR, episodes of V-tach History of Present Illness This is a 34-year-old man who presented to the emergency room via EMS with a chief complaint of shortness of breath for 11 hours. The patient complained of shortness of breath associated with polydipsia, polyuria, dizziness, and blood sugar levels reading HI x 2. Per patient, he stopped his diabetic medications for two days. Upon arrival to the emergency room he underwent multiple 12 lead electrocardiograms revealing an atrial fibrillation rhythm with rapid ventricular rate up to the 170s bpm for which he was initiated on an amiodarone drip. He also experienced multiple episodes of nonsustained ventricular tachycardia. At time of assessment, the patient had transitioned into a normal sinus rhythm with no further VT episodes. He denied any further shortness of breath, chest pain, palpitations, dizziness, or syncopal events. Significant medical history includes insulin-dependent type 1 diabetes, hypertension, dyslipidemia, esophageal varices, alcoholism, and poor medical compliance. Past Medical History Past medical history reviewed. No other significant than mentioned above. Past Surgical History Past surgical history reviewed. No other significant than mentioned above. Family History: Asthma G8 MOTHER FH: cancer G8 MOTHER Hypercholesterolemia G8 MOTHER Hypertension G8 MOTHER Family History Family history reviewed. Social History Denies the use of tobacco or illicit drugs. Admits to heavy alcohol use. Allergies: Coded Allergies: NO KNOWN ALLERGIES (Unverified , 06/03/22) Home Meds Active Scripts Insulin Lispro (Human) (Humalog) 100 Unit/Ml Inj, 10 UNIT SC TID, #1000 UNITS Prov:VIJAY FELIX MD 03/29/24 Insulin Glargine (Lantus) 100 Unit/Ml Inj, 25 UNIT SC DAILY, #1000 UNITS Prov:VIJAY FELIX MD 03/29/24 Pantoprazole Sodium Sesquihydr (Pantoprazole Sodium) 40 Mg Tab, 40 MG PO DAILY@0600 for 30 Days, #30 TAB Prov:RIZWANA RODRIGUEZ 12/03/23 Insulin Aspart (Insulin Aspart Flexpen) 100 Unit/Ml Inj, 100 UNIT SC ACHS for 60 Days, #3 INJ Blood sugar 150 to 250: 2 units Blood sugar 251 to 350: 4 units Blood sugar 351 to 400: 6 units Blood sugar 401 and above: 8 units and go to emergency room Prov:COREEN VILLALTA NP 07/05/23 Insulin Glargine (Basaglar Kwikpen) 100 Unit/Ml Inj, 20 UNIT SC DAILY for 30 Days, #5 UNITS Prov:VERENA BAUTISTA MD 11/07/21 Insulin Regular (Human) (Novolin R) 100 Unit/Ml Inj, 1-15 UNITS SC Q6HPRN PRN for 30 Days, #5 INJ 0 Refills take 1-15 units Q6hr ACHS per sliding scale Prov:VERENA BAUTISTA MD 11/07/21 Atorvastatin Calcium (Lipitor) 20 Mg Tab, 1 TAB PO DAILY, #30 TAB Prov:VERENA BAUTISTA MD 11/07/21 Home Meds Home medications reviewed. Current Medications Current Medications Medications (Trade) Dose Ordered Sig/Lazaro Route PRN Reason Start Time Stop Time Status Last Admin Sodium Chloride 1,000 ml @ 500 mls/hr Q2H IV 09/02/24 19:45 09/02/24 23:44 DC 09/02/24 21:34 Sodium Chloride 1,000 ml @ 250 mls/hr Q4H IV 09/02/24 23:45 09/02/24 21:51 DC Sodium Chloride 1,000 ml @ 150 mls/hr Q6H40M IV 09/03/24 01:45 09/02/24 21:51 DC Insulin Human (Reg)/Sodium Chloride 100 ml @ 0.5 mls/hr Q24H IV 09/02/24 19:45 09/02/24 20:05 Dextrose 50 ml UD PRN IV SEE CURRENT ALGORITHM or SCALE 09/02/24 19:45 Diagnostic Test (Pha) (Accu-Chek Comfort Curve T) 1 strip Q90MIN 09/02/24 21:00 09/03/24 13:30 Nitroglycerin (Ntrostat Sublingual) 0.4 mg Q5MINP PRN SL FOR CHEST PAIN 09/02/24 20:45 09/03/24 06:42 DC Morphine Sulfate 2 mg Q30M PRN IV FOR CHEST PAIN 09/02/24 20:45 09/03/24 06:42 DC Potassium Chloride 200 ml @ 50 mls/hr ONCE PRN IV DKA K+ PROTOCOL 09/02/24 20:45 09/03/24 18:44 09/03/24 04:25 Potassium Chloride 100 ml @ 50 mls/hr ONCE PRN IV DKA K+ REPLACEMENT PROTOCOL 09/02/24 20:45 09/03/24 18:44 Linezolid 300 ml @ 150 mls/hr Q12HR IV 09/02/24 22:00 09/03/24 10:16 Meropenem 50 ml @ 17 mls/hr Q12HR IV 09/02/24 22:00 UNV Meropenem 50 ml @ 17 mls/hr Q12HR IV 09/03/24 10:00 09/03/24 10:32 Sodium Chloride 1,000 ml @ 250 mls/hr Q4H IV 09/02/24 21:45 09/03/24 03:34 DC 09/02/24 23:36 Enoxaparin Sodium (Lovenox) 70 mg DAILY@0100 SC 09/04/24 01:00 09/03/24 08:58 DC Potassium Chloride 100 ml @ 50 mls/hr Q2H IV 09/03/24 03:15 09/03/24 11:14 DC 09/03/24 09:15 Ondansetron HCl (Zofran) 4 mg Q4HPRN PRN IV NAUSEA / VOMITING 09/03/24 03:30 09/03/24 10:32 Potassium Chloride 40 meq/ Sodium Chloride 1,020 ml @ 100 mls/hr [id number] IV 09/03/24 03:45 09/03/24 05:15 DC Sodium Chloride 1,000 ml @ 250 mls/hr Q4H IV 09/03/24 04:15 09/03/24 10:11 DC 09/03/24 08:25 Enoxaparin Sodium (Lovenox) 70 mg Q12HR SC 09/03/24 10:00 09/03/24 10:58 Dextrose/Sodium Chloride 1,000 ml @ 200 mls/hr Q5H IV 09/03/24 10:15 09/03/24 10:15 Review of Systems Constitutional: No symptom reported Ears, Nose, & Throat: No symptom reported Eyes: No symptom reported Neurological: Dizziness Pulmonary/Respiratory: SOB Cardiovascular: No symptom reported Gastrointestinal: Polydipsia, polyuria Genitourinary: No symptom reported Musculoskeletal: No symptom reported Skin: No symptom reported Psychiatric: No symptom reported Endocrine: No symptom reported Hemotologic/Lymphatic: No symptom reported Vital Signs Vital Signs Date Time Temp Pulse Resp B/P (MAP) Pulse Ox O2 Delivery O2 Flow Rate FiO2 09/03/24 13:15 98.2 80 16 128/86 (100) 99 98.2 09/03/24 08:19 Room Air* 0 21 Physical Exam General Appearance: Cooperative. Well developed. Well nourished. In no acute distress. Acetone breath present Head Exam: Normal inspection Neck Exam: Normal inspection. Non-tender. Normal alignment Pulmonary/Respiratory: Chest non-tender. Clear bilateral breath sounds Cardiovascular/Chest: Regular rate and rhythm. S1, S2. NSR. No murmurs. No JVD. Peripheral Pulses: 2+ Radial (R). 2+ Radial (L). 2+ Pedal (R). 2+ Pedal (L) Abdominal Exam: Normal bowel sounds. Soft. Nontender. No hepatospenomegaly. No masses Ankle Exam: Negative ankle edema Lower extremities: Negative lower extremity edema Neuro/Mental Status: A&O x4. Coherent Thoughts/Psych: Normal thought pattern. Appropriate mood and affect. Good judgement and insight Appearance: In no acute distress Skin Exam: Normal inspection. Normal color. Warm. Dry Labs/Diagnostic Data Labs Test 09/03/24 12:42 09/03/24 08:23 09/03/24 06:36 09/02/24 23:30 Range/Units POC Glucose 288 H 70-106 mg/dl White Blood Count 14.7 H 4.4-10.8 10^3/uL Red Blood Count 5.56 4.5-5.90 10^6/uL Hemoglobin 15.2 13.5-17.5 g/dL Hematocrit 46.2 41.0-53.0 % Mean Corpuscular Volume 83.0 # 80.0-100.0 fL Mean Corpuscular Hemoglobin 27.4 L 28.0-32.0 pg Mean Corpuscular Hemoglobin Concent 33.0 32.0-36.0 g/dL Red Cell Distribution Width 15.0 H 11.8-14.3 % Platelet Count 156 140-450 10^3/uL Mean Platelet Volume 7.3 6.9-10.8 fL Neutrophils (%) (Auto) 37.0-80.0 % Lymphocytes (%) (Auto) 10.0-50.0 % Monocytes (%) (Auto) 0.0-12.0 % Basophils (%) (Auto) 0.0-2.0 % Neutrophils # (Auto) 1.6-8.6 10 ^3/uL Lymphocytes # (Auto) 0.4-5.4 10 ^3/uL Monocytes # (Auto) 0-1.3 10 ^3/uL Differential Total Cells Counted 100.0 100 Neutrophils % (Manual) 92 H 37.0-80.0 Band Neutrophils % (Manual) 0 Lymphocytes % (Manual) 2 L 10.0-50.0 Monocytes % (Manual) 6 0-12 Eosinophils % (Manual) 0 0-7 Basophils % (Manual) 0 0.0-2.0 Metamyelocytes % (manual) 0 Myelocytes % (Manual) 0 Promyelocytes % (Manual) 0 Blast Cells % (Manual) 0 Reactive Lymphocytes 0 Platelet Estimate Adequate Sodium Level 136 136-145 mmol/L Potassium Level 3.5 3.5-5.1 mmol/L Chloride Level 100 98-107 mmol/L Carbon Dioxide Level 15 L 20-31 mmol/L Anion Gap 21 H 5-15 Blood Urea Nitrogen 51 H 9-23 mg/dL Creatinine 1.56 H 0.700-1.30 mg/dL Glomerular Filtration Rate Calc 59 >90 mL/min BUN/Creatinine Ratio 32.7 H 10.0-20.0 Serum Glucose 266 H 74-106 mg/dL Lactic Acid Level 1.2 0.4-2.0 mmol/L Calcium Level 8.3 L 8.7-10.4 mg/dL Phosphorus Level 2.9 2.4-5.1 mg/dL Magnesium Level 2.7 H 1.6-2.6 mg/dL Blood Gas Specimen Type Arterial Blood Gas Sample Site Right radial Blood Gas Patient Temperature 37.0 Arterial Blood Date Drawn [id number] Arterial Blood pH 7.284 L 7.350-7.450 Arterial Blood Partial Pressure CO2 25.3 L 35.0-48.0 mmHg Arterial Blood Partial Pressure O2 103.6 83.0-108.0 mmHg Arterial Blood HCO3 11.7 L 21.0-28.0 mmol/L Arterial Blood Oxygen Saturation 97.3 94.0-98.0 % Arterial Blood Base Excess -13.0 L -2.0-3.0 mmol/L Arterial Blood Oxyhemoglobin 95.7 94.0-98.0 % Arterial Blood Carboxyhemoglobin 1.0 0.5-1.5 % Arterial Blood Methemoglobin 0.6 0.0-1.5 % Baljit Test Yes Blood Gas Total Hemoglobin 14.60 13.5-17.5 g/dL Blood Gas Modality Room air FiO2 % 21.0 Troponin I High Sensitivity 24 </=54 ng/L Test 09/02/24 22:55 09/02/24 21:00 09/02/24 20:56 09/02/24 18:32 Range/Units Influenza Type A Antigen Negative Negative Influenza Type B Antigen Negative Negative SARS-CoV-2 Antigen (Rapid) Negative NEGATIVE Urine Color Colorless Yellow Urine Clarity Clear Clear Urine pH 5.0 5.0-9.0 Urine Specific [place] 1.016 1.001-1.035 Urine Protein Trace H Negative Urine Ketones 3+ H Negative Urine Blood Trace H Negative /uL Urine Nitrite Negative Negative Urine Bilirubin Negative Negative Urine Urobilinogen Normal Negative mg/dL Urine Leukocyte Esterase Negative Negative /uL Urine RBC <1 0 - 3 /hpf Urine Microscopic WBC 1 0-3 /HPF Urine Squamous Epithelial Cells None seen <5 /hpf Urine Bacteria None seen None Seen /hpf Urine Mucus Few None Seen Urine Glucose 4+ H Normal mg/dL Urine Opiates Screen Neg NEGATIVE Urine Fentanyl Screen Neg NEGATIVE Urine Barbiturates Screen Neg NEGATIVE Urine Phencyclidine Screen Neg NEGATIVE Urine Amphetamines Screen Neg NEGATIVE Urine Benzodiazepines Screen Neg NEGATIVE Urine Cocaine Screen Neg NEGATIVE Urine Cannabinoids Screen Neg NEGATIVE Blood Gas Spontaneous Rate 24 Blood Gas Critical Value Read Back yes Blood Gas Notified Whom md wandy kinney Blood Gas Notified Time [id number] Blood Gas Notified By technical services assistant birgit solis Eosinophils (%) (Auto) 0.0 0.0-7.0 % Eosinophils # (Auto) 0 0-0.8 10 ^3/uL Basophils # (Auto) 0.1 0-0.2 10 ^3/uL Nucleated Red Blood Cells 0.2 % Hemoglobin A1c 10.0 H <5.7 % A1C Serum Osmolality 357 H 278-298 mOsm/kg Total Bilirubin 0.7 0.2-1.0 mg/dL Aspartate Amino Transferase (AST) 10 L 13-40 U/L Alanine Aminotransferase (ALT) 10 7-40 U/L Alkaline Phosphatase 153 H 46-116 U/L Creatine Kinase 116 46-171 U/L Total Protein 8.2 5.7-8.2 g/dL Albumin 5.1 H 3.2-4.8 g/dL Lipase 42 12-53 U/L Beta-Hydroxybutyric Acid > 4.500 H < 0.4 mmol/L Plasma/Serum Blood Alcohol 4.7 <10 mg/dL Test 09/02/24 18:27 Range/Units Venous Blood pH 7.098 *L 7.320-7.430 Venous Blood pCO2 at Patient Temp 19.1 L 38.0-54.0 mmHg Venous Blood pO2 at Patient Temp 44.2 23.0-48.0 mmHg Venous Blood HCO3 5.8 L 22.0-29.0 mmol/L Venous Blood Base Excess -22.0 L -2.0-3.0 mmol/L Assessment Acute diabetic ketoacidosis Atrial fibrillation with rapid ventricular rate, now NSR Non-sustained ventricular tachycardia, resolved Acute kidney injury Insulin-dependent diabetes mellitus, HgbA1C 10.0% Hypokalemia Dyslipidemia Esophageal varices Alcohol dependence Medical noncompliance Plan/Recommendation (Dr. Lomas) The patient who presented with an atrial fibrillation rhythm with rapid ventricular rate and non-sustained ventricular tachycardia will be transition to Flecainide therapy and initiate Metoprolol XL. Transition to NOAC therapy with Xarelto when appropriate ([id number] Score 2, HAS-BLED Score 2). Replete electrolytes as necessary, K>4 and Mg>2. We recommend an outpatient event monitor, nevertheless arrhythmias likely secondary to hemodynamic derangement. Transthoracic echocardiogram from 03/25/24 revealed EF 55%. Strongly counseled on medical compliance and alcohol cessation. Follow-up with Cardiology within 3-4 weeks. There is no further cardiac workup indicated at this time. Kindly call if in need to re-consult. Thank you for allowing us to participate in this patient's care. This medical document was created using an electronic medical record system with voice recognition software and computerized dictation system. Although this document has been carefully reviewed, there might still be some phonetic and typographical errors. Occasional wrong-word or ``sound-alike substitutions may have occurred due to the inherent limitations of voice recognition software. These areas are purely typographical due to imperfections of the software programs and do not reflect any compromise in the patient's medical care. Please read the chart carefully and recognize, using context, where these substitutions have occurred. Plan discussed with: Patient, Other NYHA Physical activity limitations: NA Date of Service: Sep 03, 2024 Billing Provider: KELLI SANDRA Cardiology Common Codes: [id number] INP/OBS CARE (High) KELLI SANDRA Sep 03, 2024 13:43
[2024-09-03] MEDS: FLECAINIDE ACETATE 50 MG TAB PO ONE (13:45)
[2024-09-03 14:15] LABS: Chloride 105 mmol/L (98-107); Potassium 3.6 mmol/L (3.5-5.1); Sodium 137 mmol/L (136-145)
[2024-09-03 14:16] LABS: Anion Gap 13 (5-15)
[2024-09-03 14:22] LABS: BUN/Creatinine Ratio 20.4 (10.0-20.0)
[2024-09-03 14:26] LABS: Blood Urea Nitrogen 31 mg/dL (9-23); Calcium 8.6 mg/dL (8.7-10.4); Carbon Dioxide 19 mmol/L (20-31); Glucose 302 mg/dL (74-106)
[2024-09-03] MEDS: INSULIN LANTUS (GLARGINE) 1 /0.01ml (100units/ml) SC ONE (15:12)
--- NOTE | 2024-09-03 15:52 | DVHINCON2 ---
Date of service: Sep 03, 2024 Referring Physician Hospitalist Reason for Consultation Acidosis History of Present Illness 34-year-old male past medical history of type 1 diabetes, hypertension, alcohol abuse. Patient presents to the hospital complaining of weakness. He was diagnosed with severe acidosis in the setting of diabetic ketoacidosis. Nephrology consulted for electrolyte management. Overnight patient was started on 0.45% NaCl at a rate of 250 cc/hour with insulin drip. Allergies: Coded Allergies: NO KNOWN ALLERGIES (Unverified , 06/03/22) Home Meds Active Scripts Insulin Lispro (Human) (Humalog) 100 Unit/Ml Inj, 10 UNIT SC TID, #1000 UNITS Prov:VIJAY FELIX MD 03/29/24 Insulin Glargine (Lantus) 100 Unit/Ml Inj, 25 UNIT SC DAILY, #1000 UNITS Prov:VIJAY FELIX MD 03/29/24 Pantoprazole Sodium Sesquihydr (Pantoprazole Sodium) 40 Mg Tab, 40 MG PO DAILY@0600 for 30 Days, #30 TAB Prov:RIZWANA RODRIGUEZ RESIDENT 12/03/23 Insulin Aspart (Insulin Aspart Flexpen) 100 Unit/Ml Inj, 100 UNIT SC ACHS for 60 Days, #3 INJ Blood sugar 150 to 250: 2 units Blood sugar 251 to 350: 4 units Blood sugar 351 to 400: 6 units Blood sugar 401 and above: 8 units and go to emergency room Prov:COREEN VILLALTA [employer] Q[employer] ANALYST 07/05/23 Insulin Glargine (Basaglar Kwikpen) 100 Unit/Ml Inj, 20 UNIT SC DAILY for 30 Days, #5 UNITS Prov:VERENA BAUTISTA MD 11/07/21 Insulin Regular (Human) (Novolin R) 100 Unit/Ml Inj, 1-15 UNITS SC Q6HPRN PRN for 30 Days, #5 INJ 0 Refills take 1-15 units Q6hr ACHS per sliding scale Prov:VERENA BAUTISTA MD 11/07/21 Atorvastatin Calcium (Lipitor) 20 Mg Tab, 1 TAB PO DAILY, #30 TAB Prov:VERENA BAUTISTA MD 11/07/21 Current Medications Current Medications Medications (Trade) Dose Ordered Sig/Lazaro Route PRN Reason Start Time Stop Time Status Last Admin Sodium Chloride 1,000 ml @ 500 mls/hr Q2H IV 09/02/24 19:45 09/02/24 23:44 DC 09/02/24 21:34 Sodium Chloride 1,000 ml @ 250 mls/hr Q4H IV 09/02/24 23:45 09/02/24 21:51 DC Sodium Chloride 1,000 ml @ 150 mls/hr Q6H40M IV 09/03/24 01:45 09/02/24 21:51 DC Insulin Human (Reg)/Sodium Chloride 100 ml @ 0.5 mls/hr Q24H IV 09/02/24 19:45 09/02/24 20:05 Dextrose 50 ml UD PRN IV SEE CURRENT ALGORITHM or SCALE 09/02/24 19:45 Diagnostic Test (Pha) (Accu-Chek Comfort Curve T) 1 strip Q90MIN 09/02/24 21:00 09/03/24 15:11 Nitroglycerin (Ntrostat Sublingual) 0.4 mg Q5MINP PRN SL FOR CHEST PAIN 09/02/24 20:45 09/03/24 06:42 DC Morphine Sulfate 2 mg Q30M PRN IV FOR CHEST PAIN 09/02/24 20:45 09/03/24 06:42 DC Potassium Chloride 200 ml @ 50 mls/hr ONCE PRN IV DKA K+ PROTOCOL 09/02/24 20:45 09/03/24 18:44 09/03/24 04:25 Potassium Chloride 100 ml @ 50 mls/hr ONCE PRN IV DKA K+ REPLACEMENT PROTOCOL 09/02/24 20:45 09/03/24 18:44 Linezolid 300 ml @ 150 mls/hr Q12HR IV 09/02/24 22:00 09/03/24 10:16 Meropenem 50 ml @ 17 mls/hr Q12HR IV 09/02/24 22:00 UNV Meropenem 50 ml @ 17 mls/hr Q12HR IV 09/03/24 10:00 09/03/24 10:32 Sodium Chloride 1,000 ml @ 250 mls/hr Q4H IV 09/02/24 21:45 09/03/24 03:34 DC 09/02/24 23:36 Enoxaparin Sodium (Lovenox) 70 mg DAILY@0100 SC 09/04/24 01:00 09/03/24 08:58 DC Potassium Chloride 100 ml @ 50 mls/hr Q2H IV 09/03/24 03:15 09/03/24 11:14 DC 09/03/24 09:15 Ondansetron HCl (Zofran) 4 mg Q4HPRN PRN IV NAUSEA / VOMITING 09/03/24 03:30 09/03/24 10:32 Potassium Chloride 40 meq/ Sodium Chloride 1,020 ml @ 100 mls/hr [id number] IV 09/03/24 03:45 09/03/24 05:15 DC Sodium Chloride 1,000 ml @ 250 mls/hr Q4H IV 09/03/24 04:15 09/03/24 10:11 DC 09/03/24 08:25 Enoxaparin Sodium (Lovenox) 70 mg Q12HR SC 09/03/24 10:00 09/03/24 10:58 Dextrose/Sodium Chloride 1,000 ml @ 200 mls/hr Q5H IV 09/03/24 10:15 09/03/24 15:18 Flecainide Acetate (Tambocor Tablet) 50 mg Q12HR PO 09/03/24 22:00 Insulin Glargine (Lantus) 25 units QAM SC 09/04/24 07:00 Potassium Chloride 100 ml @ 50 mls/hr Q2H IV 09/03/24 14:45 09/03/24 18:44 09/03/24 15:13 Metoprolol Succinate (Toprol Xl) 25 mg DAILY PO 09/04/24 10:00 Family History: Asthma G8 MOTHER FH: cancer G8 MOTHER Hypercholesterolemia G8 MOTHER Hypertension G8 MOTHER Review of Systems Weakness H&P Exam Vital Signs/I&O Vital Sign Date Time Temp Pulse Resp B/P (MAP) Pulse Ox O2 Delivery O2 Flow Rate FiO2 09/03/24 15:30 98.0 87 18 151/89 (109) 99 98.0 09/03/24 08:19 Room Air* 0 21 Intake and Output 09/02/24 09/03/24 19:00 07:00 Intake Total 5767.27 ml Output Total 2800 ml Balance 2967.27 ml Intake IV Total 5767.27 ml Output Urine Total 2800 ml Physical Exam Young male Nonacute distress presently No pitting edema Abdomen is soft Regular rate and rhythm Labs/Diagnostic Data Labs/Diagnostic Data Laboratory Tests Test 09/03/24 15:10 09/03/24 13:50 09/03/24 12:42 09/03/24 10:48 Range/Units POC Glucose 279 H 288 H 198 H 70-106 mg/dl Sodium Level 137 136-145 mmol/L Potassium Level 3.6 3.5-5.1 mmol/L Chloride Level 105 98-107 mmol/L Carbon Dioxide Level 19 L 20-31 mmol/L Anion Gap 13 5-15 Blood Urea Nitrogen 31 #H 9-23 mg/dL Creatinine 1.52 H 0.700-1.30 mg/dL Glomerular Filtration Rate Calc 61 >90 mL/min BUN/Creatinine Ratio 20.4 H 10.0-20.0 Serum Glucose 302 H 74-106 mg/dL Calcium Level 8.6 L 8.7-10.4 mg/dL Test 09/03/24 09:37 09/03/24 08:23 09/03/24 07:45 09/03/24 06:36 Range/Units POC Glucose 189 H 265 H 70-106 mg/dl White Blood Count 14.7 H 4.4-10.8 10^3/uL Red Blood Count 5.56 4.5-5.90 10^6/uL Hemoglobin 15.2 13.5-17.5 g/dL Hematocrit 46.2 41.0-53.0 % Mean Corpuscular Volume 83.0 # 80.0-100.0 fL Mean Corpuscular Hemoglobin 27.4 L 28.0-32.0 pg Mean Corpuscular Hemoglobin Concent 33.0 32.0-36.0 g/dL Red Cell Distribution Width 15.0 H 11.8-14.3 % Platelet Count 156 140-450 10^3/uL Mean Platelet Volume 7.3 6.9-10.8 fL Neutrophils (%) (Auto) 37.0-80.0 % Lymphocytes (%) (Auto) 10.0-50.0 % Monocytes (%) (Auto) 0.0-12.0 % Basophils (%) (Auto) 0.0-2.0 % Neutrophils # (Auto) 1.6-8.6 10 ^3/uL Lymphocytes # (Auto) 0.4-5.4 10 ^3/uL Monocytes # (Auto) 0-1.3 10 ^3/uL Differential Total Cells Counted 100.0 100 Neutrophils % (Manual) 92 H 37.0-80.0 Band Neutrophils % (Manual) 0 Lymphocytes % (Manual) 2 L 10.0-50.0 Monocytes % (Manual) 6 0-12 Eosinophils % (Manual) 0 0-7 Basophils % (Manual) 0 0.0-2.0 Metamyelocytes % (manual) 0 Myelocytes % (Manual) 0 Promyelocytes % (Manual) 0 Blast Cells % (Manual) 0 Reactive Lymphocytes 0 Platelet Estimate Adequate Sodium Level 136 136-145 mmol/L Potassium Level 3.5 3.5-5.1 mmol/L Chloride Level 100 98-107 mmol/L Carbon Dioxide Level 15 L 20-31 mmol/L Anion Gap 21 H 5-15 Blood Urea Nitrogen 51 H 9-23 mg/dL Creatinine 1.56 H 0.700-1.30 mg/dL Glomerular Filtration Rate Calc 59 >90 mL/min BUN/Creatinine Ratio 32.7 H 10.0-20.0 Serum Glucose 266 H 74-106 mg/dL Lactic Acid Level 1.2 0.4-2.0 mmol/L Calcium Level 8.3 L 8.7-10.4 mg/dL Phosphorus Level 2.9 2.4-5.1 mg/dL Magnesium Level 2.7 H 1.6-2.6 mg/dL Blood Gas Specimen Type Arterial Blood Gas Sample Site Right radial Blood Gas Patient Temperature 37.0 Arterial Blood Date Drawn [id number] Arterial Blood pH 7.284 L 7.350-7.450 Arterial Blood Partial Pressure CO2 25.3 L 35.0-48.0 mmHg Arterial Blood Partial Pressure O2 103.6 83.0-108.0 mmHg Arterial Blood HCO3 11.7 L 21.0-28.0 mmol/L Arterial Blood Oxygen Saturation 97.3 94.0-98.0 % Arterial Blood Base Excess -13.0 L -2.0-3.0 mmol/L Arterial Blood Oxyhemoglobin 95.7 94.0-98.0 % Arterial Blood Carboxyhemoglobin 1.0 0.5-1.5 % Arterial Blood Methemoglobin 0.6 0.0-1.5 % Baljit Test Yes Blood Gas Total Hemoglobin 14.60 13.5-17.5 g/dL Blood Gas Modality Room air FiO2 % 21.0 Test 09/03/24 06:08 09/03/24 05:53 09/03/24 04:27 09/03/24 04:17 Range/Units POC Glucose 318 H 290 H 70-106 mg/dl Potassium Level 3.2 L 3.3 L 3.5-5.1 mmol/L Phosphorus Level 3.8 2.4-5.1 mg/dL Magnesium Level 2.7 H 1.6-2.6 mg/dL Test 09/03/24 03:16 09/03/24 02:00 09/03/24 01:39 09/02/24 23:58 Range/Units POC Glucose 289 H 333 H 401 *H 70-106 mg/dl Sodium Level 133 #L 136-145 mmol/L Potassium Level 2.9 L 3.5-5.1 mmol/L Chloride Level 96 #L 98-107 mmol/L Carbon Dioxide Level 14 L 20-31 mmol/L Anion Gap 23 H 5-15 Blood Urea Nitrogen 48 #H 9-23 mg/dL Creatinine 1.86 H 0.700-1.30 mg/dL Glomerular Filtration Rate Calc 48 >90 mL/min BUN/Creatinine Ratio 25.8 H 10.0-20.0 Serum Glucose 308 #H 74-106 mg/dL Calcium Level 7.9 L 8.7-10.4 mg/dL Test 09/02/24 23:30 09/02/24 22:55 09/02/24 22:41 09/02/24 22:27 Range/Units Troponin I High Sensitivity 24 </=54 ng/L Influenza Type A Antigen Negative Negative Influenza Type B Antigen Negative Negative SARS-CoV-2 Antigen (Rapid) Negative NEGATIVE Lactic Acid Level 2.1 *H 0.4-2.0 mmol/L POC Glucose 518 *H 70-106 mg/dl Test 09/02/24 21:00 09/02/24 20:57 09/02/24 20:56 09/02/24 20:50 Range/Units Urine Color Colorless Yellow Urine Clarity Clear Clear Urine pH 5.0 5.0-9.0 Urine Specific [place] 1.016 1.001-1.035 Urine Protein Trace H Negative Urine Ketones 3+ H Negative Urine Blood Trace H Negative /uL Urine Nitrite Negative Negative Urine Bilirubin Negative Negative Urine Urobilinogen Normal Negative mg/dL Urine Leukocyte Esterase Negative Negative /uL Urine RBC <1 0 - 3 /hpf Urine Microscopic WBC 1 0-3 /HPF Urine Squamous Epithelial Cells None seen <5 /hpf Urine Bacteria None seen None Seen /hpf Urine Mucus Few None Seen Urine Glucose 4+ H Normal mg/dL Urine Opiates Screen Neg NEGATIVE Urine Fentanyl Screen Neg NEGATIVE Urine Barbiturates Screen Neg NEGATIVE Urine Phencyclidine Screen Neg NEGATIVE Urine Amphetamines Screen Neg NEGATIVE Urine Benzodiazepines Screen Neg NEGATIVE Urine Cocaine Screen Neg NEGATIVE Urine Cannabinoids Screen Neg NEGATIVE POC Glucose > 600 *H 70-106 mg/dl Blood Gas Specimen Type Arterial Blood Gas Sample Site Right radial Blood Gas Patient Temperature 37.0 Arterial Blood Date Drawn [id number] Arterial Blood pH 7.212 *L 7.350-7.450 Arterial Blood Partial Pressure CO2 14.5 *L 35.0-48.0 mmHg Arterial Blood Partial Pressure O2 128.0 H 83.0-108.0 mmHg Arterial Blood HCO3 5.7 L 21.0-28.0 mmol/L Arterial Blood Oxygen Saturation 98.1 H 94.0-98.0 % Arterial Blood Base Excess -19.3 L -2.0-3.0 mmol/L Arterial Blood Oxyhemoglobin 96.7 94.0-98.0 % Arterial Blood Carboxyhemoglobin 0.8 0.5-1.5 % Arterial Blood Methemoglobin 0.6 0.0-1.5 % Baljit Test Yes Blood Gas Total Hemoglobin 15.90 13.5-17.5 g/dL Blood Gas Modality Room air Blood Gas Spontaneous Rate 24 FiO2 % 21.0 Blood Gas Critical Value Read Back yes Blood Gas Notified Whom md wandy kinney Blood Gas Notified Time [id number] Blood Gas Notified By management developer birgit solis Lactic Acid Level 2.1 *H 0.4-2.0 mmol/L Troponin I High Sensitivity 21 </=54 ng/L Test 09/02/24 19:59 09/02/24 19:58 09/02/24 18:32 09/02/24 18:27 Range/Units POC Glucose > 600 *H 70-106 mg/dl Sodium Level 123 L 120 L 136-145 mmol/L Potassium Level 4.1 4.6 3.5-5.1 mmol/L Chloride Level 77 L 74 L 98-107 mmol/L Carbon Dioxide Level < 10 *L < 10 *L 20-31 mmol/L Anion Gap 36.83390 H 36.41185 H 5-15 Blood Urea Nitrogen 79 H 60 H 9-23 mg/dL Creatinine 2.87 H 2.94 H 0.700-1.30 mg/dL Glomerular Filtration Rate Calc 29 28 >90 mL/min BUN/Creatinine Ratio 27.5 H 20.4 H 10.0-20.0 Serum Glucose 708 *H 759 *H 74-106 mg/dL Calcium Level 8.1 L 8.0 L 8.7-10.4 mg/dL White Blood Count 17.2 H 4.4-10.8 10^3/uL Red Blood Count 5.82 4.5-5.90 10^6/uL Hemoglobin 16.6 13.5-17.5 g/dL Hematocrit 50.4 41.0-53.0 % Mean Corpuscular Volume 86.7 80.0-100.0 fL Mean Corpuscular Hemoglobin 28.5 28.0-32.0 pg Mean Corpuscular Hemoglobin Concent 32.9 32.0-36.0 g/dL Red Cell Distribution Width 14.6 H 11.8-14.3 % Platelet Count 257 140-450 10^3/uL Mean Platelet Volume 8.2 6.9-10.8 fL Neutrophils (%) (Auto) 93.3 H 37.0-80.0 % Lymphocytes (%) (Auto) 1.2 L 10.0-50.0 % Monocytes (%) (Auto) 4.9 0.0-12.0 % Eosinophils (%) (Auto) 0.0 0.0-7.0 % Basophils (%) (Auto) 0.6 0.0-2.0 % Neutrophils # (Auto) 16.1 H 1.6-8.6 10 ^3/uL Lymphocytes # (Auto) 0.2 L 0.4-5.4 10 ^3/uL Monocytes # (Auto) 0.8 0-1.3 10 ^3/uL Eosinophils # (Auto) 0 0-0.8 10 ^3/uL Basophils # (Auto) 0.1 0-0.2 10 ^3/uL Nucleated Red Blood Cells 0.2 % Hemoglobin A1c 10.0 H <5.7 % A1C Serum Osmolality 357 H 278-298 mOsm/kg Phosphorus Level 9.9 H 2.4-5.1 mg/dL Magnesium Level 3.2 H 1.6-2.6 mg/dL Total Bilirubin 0.7 0.2-1.0 mg/dL Aspartate Amino Transferase (AST) 10 L 13-40 U/L Alanine Aminotransferase (ALT) 10 7-40 U/L Alkaline Phosphatase 153 H 46-116 U/L Creatine Kinase 116 46-171 U/L Troponin I High Sensitivity 21 </=54 ng/L Total Protein 8.2 5.7-8.2 g/dL Albumin 5.1 H 3.2-4.8 g/dL Lipase 42 12-53 U/L Beta-Hydroxybutyric Acid > 4.500 H < 0.4 mmol/L Plasma/Serum Blood Alcohol 4.7 <10 mg/dL Blood Gas Specimen Type Venous Blood Gas Sample Site Vbg - n/a Blood Gas Patient Temperature 37.0 Arterial Blood Date Drawn [id number] Baljit Test N/a Venous Blood pH 7.098 *L 7.320-7.430 Venous Blood pCO2 at Patient Temp 19.1 L 38.0-54.0 mmHg Venous Blood pO2 at Patient Temp 44.2 23.0-48.0 mmHg Venous Blood HCO3 5.8 L 22.0-29.0 mmol/L Venous Blood Base Excess -22.0 L -2.0-3.0 mmol/L Blood Gas Modality Room air Blood Gas Spontaneous Rate 24 FiO2 % 21.0 Blood Gas Critical Value Read Back yes Blood Gas Notified Whom md wandy ruiz Blood Gas Notified Time [id number] Blood Gas Notified By management developer anuel genao Assessment Acute kidney injury prerenal etiology in the setting of severe volume depletion No previous history of kidney disease Type 1 diabetes poorly controlled Severe hyperglycemia Severe diabetic ketoacidosis Hypokalemia 0.45% NaCl at a rate of 250 cc/hour, converted to D5 0.45% NaCl until anion gap is close Continue with insulin drip Replace potassium and magnesium per protocol Renal function is continuing to improve but has not reached to baseline. Close monitoring due to guarded prognosis Strongly encourage waiting until anion gap has completely closed prior to bridging to subq to prevent reopening. Patient is critically ill Critical care time spent 35 minutes Plan discussed with: Patient SANTIAGO BABB MD Sep 03, 2024 15:52
--- NOTE | 2024-09-03 18:25 | DVHSR ---
APPROVED REPORT EXAM: LIMITED Two-dimensional and M-mode echocardiogram with Doppler and color Doppler. Blood Pressure: 163/91 mmHg INDICATION afib RISK FACTORS Height: 5'7, Weight: 160 DIMENSIONS LVDd4.3 (3.8-5.7cm)LA (2D)2.7 (1.9-4.0cm)Aortic Root3.5 (2.0-3.7cm) LVDs3.0 (2.5-4.0cm)LA (MM) (1.9-4.0cm)Aortic Cusp Exc1.6 (1.5-2.0cm) EF (%) 55.0 (55-70%)Rt. Atrium3.1 (1.9-4.0cm)Asc. Aorta cm IVSd1.0 (0.7-1.1cm)RV (D) (1.8-2.4cm) PWd1.0 (0.7-1.1cm) Mitral Valve MitralMitral Stenosis E wave0.53m/sMV Mean GR.mmHg A wave0.75m/sMV Peak GR.mmHg E/A ratio0.72D MVAcm2 DECEL [id number] 1/2 Timems Aortic Valve Aortic ValveAortic Stenosis V10.82m/Gerardo Mean GR.3mmHg V21.14m/Gerardo Peak GR.5mmHg LVOT Diameter2.3 (1.8-2.4cm)Doppler AVA2.99cm2 Conclusion Technically good study. Off axis views. Normal chamber sizes. Valves are normal. EF of 55-60% with normal RV function. Dopplers unremarkable. No pericardial effusion masses or vegetations.
[2024-09-03 20:28] LABS: Chloride 106 mmol/L (98-107); Potassium 4.4 mmol/L (3.5-5.1); Sodium 136 mmol/L (136-145)
[2024-09-03 20:29] LABS: Anion Gap 13 (5-15); Calcium 8.9 mg/dL (8.7-10.4)
[2024-09-03] MEDS ORDERED: DEXTROSE (50%) 50ML SYRG IV PRN (20:30)
[2024-09-03 20:34] LABS: BUN/Creatinine Ratio 17.3 (10.0-20.0); Blood Urea Nitrogen 24 mg/dL (9-23); Glucose 382 mg/dL (74-106)
[2024-09-03 20:35] LABS: Carbon Dioxide 17 mmol/L (20-31)
[2024-09-03] MEDS: INSULIN LANTUS (GLARGINE) 1 /0.01ml (100units/ml) SC SCH (21:03)
[2024-09-03] MEDS: FLECAINIDE ACETATE 50 MG TAB PO SCH (22:00)
[2024-09-04] VITALS (8 sets, daily range): BP systolic 139–156; BP diastolic 92–116; PULSE 74–111; RESP 17–19; TEMP 97.8–98.4; O2SAT 97–99
[2024-09-04] MEDS: InsuLIN REG 1unit/0.01ml Soln (100units/ml) SC SCH (00:10)
[2024-09-04] MEDS: ACCU-CHEK COMFORT CURVE STRIP VI SCH (00:14)
[2024-09-04] MEDS ORDERED: ENOXAPARIN SOD 100 MG/1 ML SYRINGE SC SCH (01:00)
[2024-09-04] MEDS ORDERED: INSULIN LANTUS (GLARGINE) 1 /0.01ml (100units/ml) SC SCH (07:00)
[2024-09-04 07:14] LABS: Basophils # (auto) 0 10 ^3/uL (0-0.2); Basophils % (auto) 0.1 % (0.0-2.0); Eosinophils # (auto) 0 10 ^3/uL (0-0.8); Hemoglobin 13.3 g/dL (13.5-17.5); Lymphocytes # (auto) 0.5 10 ^3/uL (0.4-5.4); Lymphocytes % (auto) 6.1 % (10.0-50.0); Mean Corpuscular Hemoglobin 28.4 pg (28.0-32.0); Mean Corpuscular Hgb Conc. 34.3 g/dL (32.0-36.0); Mean Corpuscular Volume 82.8 fL (80.0-100.0); Monocytes # (auto) 0.7 10 ^3/uL (0-1.3); Neutrophils # (auto) 6.7 10 ^3/uL (1.6-8.6); Neutrophils % (auto) 84.8 % (37.0-80.0); Nucleated Red Blood Cells % 0.2 %; Platelet Count (auto) 131 10^3/uL (140-450); Red Blood Cells 4.71 10^6/uL (4.5-5.90); Red Cell Distribution Width 15.1 % (11.8-14.3); White Blood Cell 7.9 10^3/uL (4.4-10.8)
[2024-09-04 07:48] LABS: Albumin 3.9 g/dL (3.2-4.8); Alkaline Phosphatase 99 U/L (46-116); Anion Gap 14 (5-15); BUN/Creatinine Ratio 22.4 (10.0-20.0); Bilirubin, Total 0.7 mg/dL (0.2-1.0); Sodium 142 mmol/L (136-145); Total Protein 6.4 g/dL (5.7-8.2)
[2024-09-04 07:49] LABS: Alanine Aminotransferase < 9 U/L (7-40); Aspartate Aminotransferase 8 U/L (13-40); Blood Urea Nitrogen 24 mg/dL (9-23); Carbon Dioxide 17 mmol/L (20-31); Chloride 111 mmol/L (98-107); Glucose 130 mg/dL (74-106); Magnesium 2.7 mg/dL (1.6-2.6); Phosphorus 1.4 mg/dL (2.4-5.1); Potassium 3.1 mmol/L (3.5-5.1)
--- NOTE | 2024-09-04 09:54 | DVH ---
EXAM: CT Head Without Intravenous Contrast CLINICAL INDICATION: METABOLIC ENCEPHALOPATHY TECHNIQUE: Axial computed tomography images of the head/brain without intravenous contrast. This CT exam was performed using one or more of the following dose reduction techniques: automated exposure control, adjustment of the mA and/or kV according to patient size, and/or use of iterative reconstru ction technique. CONTRAST: RADIATION DOSE: CTDIvol = 53.47 mGy, DLP = 857.2 mGy-cm COMPARISON: None FINDINGS: BRAIN AND EXTRA-AXIAL SPACES: Unremarkable. No hemorrhage. No significant white matter disease. No edema. No ventriculomegaly. BONES/JOINTS: Unremarkable. No acute fracture. SOFT TISSUES: Unremarkable. SINUSES: Unremarkable as visualized. No acute sinusitis. MASTOID AIR CELLS: Unremarkable as visualized. No mastoid effusion. OTHER FINDINGS: . None. IMPRESSION: No acute intracranial hemorrhage, midline shift or mass effect.
[2024-09-04] MEDS: METOPROLOL SUCCINATE XL 50 MG TAB PO SCH (10:35)
[2024-09-04] MEDS: POTASSIUM CHL 20MEQ/100ML 100 ML IV SCH ×2 (12:00→23:35)
--- NOTE | 2024-09-04 15:37 | DVHPN2 ---
Progress Note Date Seen: Sep 04, 2024 Medical Necessity Reason Pt with a Central, PICC or Fol: No Objective vital signs Vital Sign Date Time Temp Pulse Resp B/P (MAP) Pulse Ox O2 Delivery O2 Flow Rate FiO2 09/04/24 13:00 97.8 89 18 156/105 (122) 97 97.8 09/03/24 20:00 Room Air* 0 21 Total Intake and Output 09/03/24 09/03/24 09/04/24 15:00 23:00 07:00 Intake Total 2099.96 ml 550 ml 340 ml Output Total 2200 ml Balance 2099.96 ml 550 ml -1860 ml medications Current Medications Medications Dose Ordered Sig/Lazaro Route Start Time Stop Time Status Last Admin Dose Admin Linezolid 300 ml @ 150 mls/hr Q12HR IV 09/02/24 22:00 09/04/24 10:35 150 MLS/HR Meropenem 50 ml @ 17 mls/hr Q12HR IV 09/02/24 22:00 UNV Meropenem 50 ml @ 17 mls/hr Q12HR IV 09/03/24 10:00 09/04/24 10:34 17 MLS/HR Ondansetron HCl 4 mg Q4HPRN PRN IV 09/03/24 03:30 09/04/24 08:27 4 MG Enoxaparin Sodium 70 mg Q12HR SC 09/03/24 10:00 09/04/24 10:34 70 MG Flecainide Acetate 50 mg Q12HR PO 09/03/24 22:00 09/04/24 10:34 50 MG Metoprolol Succinate 25 mg DAILY PO 09/04/24 10:00 09/04/24 10:35 25 MG Diagnostic Test (Pha) 1 strip IQ4HR 09/04/24 00:00 09/04/24 12:00 1 STRIP Insulin Human Regular IQ4HR SC 09/04/24 00:00 09/04/24 12:38 9 UNITS Dextrose 50 ml UD PRN IV 09/03/24 20:30 Insulin Glargine 28 units HS SC 09/03/24 20:45 09/03/24 21:03 28 UNITS Sodium Chloride 1,000 ml @ 100 mls/hr Q10H IV 09/03/24 20:45 09/04/24 04:36 100 MLS/HR Examination: GENERAL:Normal, CVS:Normal, ABDOMEN:Normal, SKIN:Normal laboratory and microbiology Laboratory Tests 09/04/24 05:40 Test 09/04/24 05:40 Range/Units Serum Glucose 130 #H 74-106 mg/dL Microbiology Date/Time Source Procedure Growth Status 09/02/24 21:00 Voided Urine Urine Culture - Preliminary Resulted 09/02/24 20:50 Blood Blood Culture - Preliminary NO GROWTH AFTER 24 HOURS OF INCUBATION. Resulted Problem List/Assessment/Plan Problem List/Assessment/Plan Acute kidney injury prerenal etiology in the setting of severe volume depletion No previous history of kidney disease Type 1 diabetes poorly controlled Severe hyperglycemia Severe diabetic ketoacidosis Hypokalemia continue IVF Replace potassium and magnesium per protocol replace Phos AG is still borderline elevated rec continued insulin treatment and close monitoring to prevent reopening Plan discussed with: Patient SANTIAGO BABB MD Sep 04, 2024 15:37
[2024-09-04] MEDS: POTASSIUM PHOSPHATE 22 MEQ in SODIUM CHL 0.9% 100 ML IV ONE (17:00)
--- NOTE | 2024-09-04 21:05 | DVHPNRES ---
Progress Note Date Seen: Sep 04, 2024 Resident Creating Document: MILLY CORRAL RESIDENT Medical Necessity Reason Pt with a Central, PICC or Fol: No Subjective Review of Systems Luis Ortiz is a 34-year-old male patient who presents to the ED with chief complaint of polyuria, polydipsia, dizziness, fatigue and nausea and vomiting which started the day of his admission. Patient reports noncompliance with insulin treatment, and also heavy ethanol abuse (two pints of vodka every night) with a history of type 1 diabetes mellitus (poor compliance with insulin). Denies fever, chills, syncope, palpitation, chest pain, dyspnea, diarrhea, dysuria, sick contacts, recent travel and motor or sensory deficits. Past Medical History: Diabetes Mellitus Type 1 (insulin-dependent, poor compliance), hypertension, dyslipidemia, ethanol abuse, multiple admissions due to DKA, paroxysmal atrial fibrillation (chads Vasc 2/has bled 1) on anticoagulation with apixaban Surgical history: Denies Family history: Paternal family has heart disease, maternal grandmother had colon cancer Social history: Lives in [place] with mother. Heavy ethanol abuse (two pints of vodka per night). Denies current tobacco and other drug abuse Allergies: Denies Home medication: Insulin Glargine: 20 UI only, atorvastatin, atorvastatin and pantoprazole Patient seen and examined at bedside. Patient currently feels better since admission, on Lantus and insulin sliding scale. Patient is tolerating clear liquid diet, progress to full liquid. Objective vital signs Vital Sign Date Time Temp Pulse Resp B/P (MAP) Pulse Ox O2 Delivery O2 Flow Rate FiO2 09/04/24 17:00 98.1 79 17 141/116 (124) 98 98.1 09/04/24 08:00 Room Air* 0 21 Total Intake and Output 09/03/24 09/03/24 09/04/24 15:00 23:00 07:00 Intake Total 2099.96 ml 550 ml 340 ml Output Total 2200 ml Balance 2099.96 ml 550 ml -1860 ml medications Current Medications Medications Dose Ordered Sig/Lazaro Route Start Time Stop Time Status Last Admin Dose Admin Linezolid 300 ml @ 150 mls/hr Q12HR IV 09/02/24 22:00 09/04/24 10:35 150 MLS/HR Meropenem 50 ml @ 17 mls/hr Q12HR IV 09/02/24 22:00 UNV Meropenem 50 ml @ 17 mls/hr Q12HR IV 09/03/24 10:00 09/04/24 10:34 17 MLS/HR Ondansetron HCl 4 mg Q4HPRN PRN IV 09/03/24 03:30 09/04/24 17:10 4 MG Enoxaparin Sodium 70 mg Q12HR SC 09/03/24 10:00 09/04/24 10:34 70 MG Flecainide Acetate 50 mg Q12HR PO 09/03/24 22:00 09/04/24 10:34 50 MG Metoprolol Succinate 25 mg DAILY PO 09/04/24 10:00 09/04/24 10:35 25 MG Diagnostic Test (Pha) 1 strip IQ4HR 09/04/24 00:00 09/04/24 20:10 1 STRIP Insulin Human Regular IQ4HR SC 09/04/24 00:00 09/04/24 20:10 2 UNITS Dextrose 50 ml UD PRN IV 09/03/24 20:30 Insulin Glargine 28 units HS SC 09/03/24 20:45 09/03/24 21:03 28 UNITS Sodium Chloride 1,000 ml @ 100 mls/hr Q10H IV 09/03/24 20:45 09/04/24 17:11 100 MLS/HR Examination Patient lying in bed, in no acute distress General: Lucid, afebrile, mucosae are dry Cardiovascular: Tachycardia, Normal S1 and S2. No murmurs, gallops or rubs Respiratory: Normal ventilation mechanics. Clear lung sounds on auscultation Abdomen: Soft, nontender, no organomegaly, normal bowel sounds MSK/skin: Mobilizes 4 limbs. Skin is dry and warm Neurological: Oriented in 3 spheres. No motor no sensitive deficits. Pupils are isocoric and reactive laboratory and microbiology Laboratory Tests 09/04/24 05:40 Test 09/04/24 05:40 Range/Units Serum Glucose 130 #H 74-106 mg/dL Microbiology Date/Time Source Procedure Growth Status 09/02/24 21:00 Voided Urine Urine Culture - Preliminary Resulted 09/02/24 20:50 Blood Blood Culture - Preliminary NO GROWTH AFTER 24 HOURS OF INCUBATION. Resulted Problem List/Assessment/Plan Problem List/Assessment/Plan # Acute metabolic encephalopathy due to DKA versus sepsis Head CT showed no acute intracranial pathology # Diabetic Ketoacidosis Required insulin drip on admission, IV fluid resuscitation (currently with half- normal saline and D5W). Once insulin drip is discontinued, we will downgrade to telemetry. Currently he is ICU status Insulin drip was discontinued due to hypokalemia and nonsustained monomorphic V- tach Nephrology on board # Questionable sepsis Patient was tachycardic and had leukocytosis on admission. Ordered pancultures (blood, sputum and urine), negative at the moment Currently on empiric IV antibiotic (linezolid and meropenem) # Acute Kidney Injury vasomotor mediated Nephrology consulted: Optimized medical therapy. Continue fluids & monitor renal function # Phosphatemia alteration IV fluids, now replenishing # Hypermagnesemia due to DKA IV fluids # Hypokalemia Replenish # Paroxysmal atrial fibrillation with RVR (chads Vasc 2/has bled 1) secondary hypercoagulability state Currently on enoxaparin Cardiology evaluated the patient, indicated flecainide # Non sustained Ventricular Tachycardia Initially required amiodarone drip, currently discontinued. Cardiology evaluated: Most likely secondary to electrolyte disbalance # Medical Noncompliance Gave advice on healthy lifestyle habits # Diabetes type 1 - Uncontrolled (hemoglobin 10) Strong reinforcement of medication adherence Currently on Lantus insulin 28 units Goals of care discussed with patient for over 18 minutes: Full code status Discussed plan with Dr. Spencer, patient and nurses: Currently patient is on long-acting in rapid insulin subcutaneous, IV fluids (half-normal saline) and optimizing electrolyte disturbance. Patient downgraded to telemetry status. Patient has poor prognosis. Plan discussed with: Patient, Other (Nurses) My Orders My Orders Orders - MILLY CORRAL Procedure Category Date Status Time Head Without Contrast CT 09/04/24 Resulted 07:01 Date of Service: Sep 04, 2024 Billing Provider: TIM SPENCER MD Common Visit Codes: [id number] INP/OBS CARE(HIGH) MILLY CORRAL RESIDENT Sep 04, 2024 21:05 TIM SPENCER MD Sep 07, 2024 16:08
[2024-09-04 22:27] LABS: Chloride 101 mmol/L (98-107)
[2024-09-04 22:28] LABS: Anion Gap 8 (5-15); Carbon Dioxide 26 mmol/L (20-31)
[2024-09-04 22:33] LABS: BUN/Creatinine Ratio 21.3 (10.0-20.0); Blood Urea Nitrogen 17 mg/dL (9-23)
[2024-09-04 22:34] LABS: Magnesium 2.2 mg/dL (1.6-2.6)
[2024-09-04 22:35] LABS: Calcium 8.4 mg/dL (8.7-10.4); Glucose 164 mg/dL (74-106); Sodium 135 mmol/L (136-145)
[2024-09-04 22:36] LABS: Phosphorus 2.2 mg/dL (2.4-5.1)
[2024-09-05] VITALS (8 sets, daily range): BP systolic 121–138; BP diastolic 81–96; PULSE 63–97; RESP 17–18; TEMP 97.7–98.5; O2SAT 93–99
[2024-09-05 00:54] LABS: Chloride 102 mmol/L (98-107)
[2024-09-05 00:55] LABS: Anion Gap 8 (5-15); Carbon Dioxide 26 mmol/L (20-31)
[2024-09-05 00:57] LABS: Calcium 8.5 mg/dL (8.7-10.4); Potassium 2.8 mmol/L (3.5-5.1); Sodium 136 mmol/L (136-145)
[2024-09-05 01:00] LABS: Blood Urea Nitrogen 15 mg/dL (9-23)
[2024-09-05 01:18] LABS: Glucose 143 mg/dL (74-106)
[2024-09-05] MEDS: POTASSIUM EFFERVESENT TAB 25 MEQ PO ONE (03:37)
[2024-09-05 08:28] LABS: Basophils # (auto) 0 10 ^3/uL (0-0.2); Basophils % (auto) 0.1 % (0.0-2.0); Eosinophils # (auto) 0 10 ^3/uL (0-0.8); Eosinophils % (auto) 0.3 % (0.0-7.0); Hematocrit 30.7 % (41.0-53.0); Hemoglobin 10.6 g/dL (13.5-17.5); Lymphocytes # (auto) 0.7 10 ^3/uL (0.4-5.4); Lymphocytes % (auto) 14.2 % (10.0-50.0); Mean Corpuscular Hemoglobin 28.3 pg (28.0-32.0); Mean Corpuscular Hgb Conc. 34.6 g/dL (32.0-36.0); Monocytes # (auto) 0.5 10 ^3/uL (0-1.3); Monocytes % (auto) 10.3 % (0.0-12.0); Neutrophils # (auto) 3.4 10 ^3/uL (1.6-8.6); Neutrophils % (auto) 75.1 % (37.0-80.0); Platelet Count (auto) 102 10^3/uL (140-450); Red Blood Cells 3.75 10^6/uL (4.5-5.90); Red Cell Distribution Width 15.1 % (11.8-14.3); White Blood Cell 4.6 10^3/uL (4.4-10.8)
[2024-09-05 08:32] LABS: Alkaline Phosphatase 67 U/L (46-116); Anion Gap 12 (5-15); BUN/Creatinine Ratio 28.8 (10.0-20.0); Blood Urea Nitrogen 19 mg/dL (9-23); Carbon Dioxide 24 mmol/L (20-31); Chloride 104 mmol/L (98-107); Glucose 104 mg/dL (74-106); Sodium 140 mmol/L (136-145)
[2024-09-05 08:33] LABS: Albumin 3.3 g/dL (3.2-4.8); Bilirubin, Total 0.8 mg/dL (0.2-1.0)
[2024-09-05 08:37] LABS: Alanine Aminotransferase < 9 U/L (7-40); Aspartate Aminotransferase 9 U/L (13-40); Calcium 8.7 mg/dL (8.7-10.4); Phosphorus 1.6 mg/dL (2.4-5.1); Potassium 3.1 mmol/L (3.5-5.1); Total Protein 5.5 g/dL (5.7-8.2)
--- NOTE | 2024-09-05 09:25 | DVHPNRES ---
Progress Note Date Seen: Sep 05, 2024 Resident Creating Document: BOBBY UREÑA RESIDENT Medical Necessity Reason Pt with a Central, PICC or Fol: No Subjective Review of Systems Patient is a 34-year-old male with past medical history of type 1 diabetes, hypertension, dyslipidemia, alcohol abuse, multiple admissions due to DKA, paroxysmal AFib (chads Vasc 2/has bled 1), who came in due to polyuria, polydipsia, dizziness and fatigue. Per patient, he has been having recurrent nausea and multiple episodes of vomiting which started on the day of his admission. Patient has a history of heavy alcohol abuse using 2 pt of vodka every night and poor adherence to his insulin regimen. Past surgical history: Denies Home medications: Insulin glargine 20 units, atorvastatin, pantoprazole Social & Personal history: Patient lives in [place] with mother. Drinks 2 pt of vodka per night. Denies using tobacco or other drugs. Allergies: Denies Patient seen and examined at bedside. Patient is alert and oriented to time, place person and responding to all questions. Patient reports 4 episodes of vomiting overnight, vomitus dark black in color. Also notes weakness on ambulation. Anion gap 12 today. Objective vital signs Vital Sign Date Time Temp Pulse Resp B/P (MAP) Pulse Ox O2 Delivery O2 Flow Rate FiO2 09/05/24 05:00 97.7 79 18 138/96 (110) 97 97.7 09/04/24 20:00 Room Air* 0 21 Total Intake and Output 09/04/24 09/04/24 09/05/24 15:00 23:00 07:00 Intake Total 450 ml 1882 ml 850 ml Output Total 1250 ml 950 ml Balance 450 ml 632 ml -100 ml medications Current Medications Medications Dose Ordered Sig/Lazaro Route Start Time Stop Time Status Last Admin Dose Admin Linezolid 300 ml @ 150 mls/hr Q12HR IV 09/02/24 22:00 09/04/24 22:05 150 MLS/HR Meropenem 50 ml @ 17 mls/hr Q12HR IV 09/02/24 22:00 UNV Meropenem 50 ml @ 17 mls/hr Q12HR IV 09/03/24 10:00 09/04/24 22:56 17 MLS/HR Ondansetron HCl 4 mg Q4HPRN PRN IV 09/03/24 03:30 09/05/24 03:24 4 MG Enoxaparin Sodium 70 mg Q12HR SC 09/03/24 10:00 09/04/24 22:07 70 MG Flecainide Acetate 50 mg Q12HR PO 09/03/24 22:00 09/04/24 22:05 50 MG Metoprolol Succinate 25 mg DAILY PO 09/04/24 10:00 09/04/24 10:35 25 MG Diagnostic Test (Pha) 1 strip IQ4HR 09/04/24 00:00 09/05/24 08:00 1 STRIP Insulin Human Regular IQ4HR SC 09/04/24 00:00 09/05/24 08:37 3 UNITS Dextrose 50 ml UD PRN IV 09/03/24 20:30 Insulin Glargine 28 units HS SC 09/03/24 20:45 09/04/24 22:56 28 UNITS Sodium Chloride 1,000 ml @ 100 mls/hr Q10H IV 09/03/24 20:45 09/05/24 03:12 100 MLS/HR Examination General Appearance: Cooperative. Well developed. Moist mucous membranes. NAD Head Exam: Normal inspection Neck Exam: Normal inspection. Non-tender. Normal alignment Pulmonary/Respiratory: Chest non-tender. Clear bilateral breath sounds, no crackles, no wheezing. Cardiovascular/Chest: Regular rate and rhythm. No murmurs. No JVD. Peripheral Pulses: 2+ Radial (R). 2+ Radial (L). 2+ Pedal (R). 2+ Pedal (L) Abdominal Exam: Normal bowel sounds. Soft. normal abdomen, no visible veins, Nontender. No hepatospenomegaly. No masses Ankle Exam: Negative ankle edema Lower extremities: Negative lower extremity edema Neuro/Mental Status: A&O x4. Coherent. Thoughts/Psych: Normal thought pattern. Appropriate mood and affect. Good judgement and insight Skin Exam: Normal inspection. Normal color. Warm. Dry laboratory and microbiology Laboratory Tests 09/05/24 06:41 Test 09/05/24 06:41 Range/Units Serum Glucose 104 74-106 mg/dL Microbiology Date/Time Source Procedure Growth Status 09/02/24 21:00 Voided Urine Urine Culture - Preliminary Resulted 09/02/24 20:50 Blood Blood Culture - Preliminary NO GROWTH AFTER 48 HOURS OF INCUBATION. Resulted Labs and/or images reviewed: Labs reviewed by me, Image(s) reviewed by me Problem List/Assessment/Plan Problem List/Assessment/Plan # Acute metabolic encephalopathy due to DKA versus sepsis Head CT showed no acute intracranial pathology # Diabetic Ketoacidosis Required insulin drip on admission, IV fluid resuscitation (currently with half- normal saline and D5W). Once insulin drip is discontinued, we will downgrade to telemetry. Currently he is ICU status Insulin drip was discontinued due to hypokalemia and nonsustained monomorphic V- tach Nephrology on board Carafate 1 g q.i.d. # Questionable sepsis Patient was tachycardic and had leukocytosis on admission. Ordered pancultures (blood, sputum and urine), negative at the moment Currently on empiric IV antibiotic (linezolid and meropenem) # Acute Kidney Injury vasomotor mediated Nephrology consulted: Optimized medical therapy. Continue fluids & monitor renal function # Phosphatemia alteration IV fluids, now replenishing # Hypermagnesemia due to DKA IV fluids # Hypokalemia Replenish # Paroxysmal atrial fibrillation with RVR (chads Vasc 2/has bled 1) secondary hypercoagulability state Currently on enoxaparin Cardiology evaluated the patient, indicated flecainide # Non sustained Ventricular Tachycardia Initially required amiodarone drip, currently discontinued. Cardiology evaluated: Most likely secondary to electrolyte disbalance # Medical Noncompliance Gave advice on healthy lifestyle habits # Diabetes type 1 - Uncontrolled (hemoglobin 10) Strong reinforcement of medication adherence Currently on Lantus insulin 28 units Goals of care discussed with patient for over 18 minutes: Full code status Discussed plan with Dr. Spencer, patient and nurses: Currently patient is on long-acting in rapid insulin subcutaneous, IV fluids (half-normal saline) and optimizing electrolyte disturbance. Patient downgraded to telemetry status. Patient has poor prognosis. Plan discussed with: Patient, Other (RN) Date of Service: Sep 05, 2024 Billing Provider: TIM SPENCER MD Common Visit Codes: [id number] INP/OBS CARE(HIGH) BOBBY UREÑA RESIDENT Sep 05, 2024 09:25 TIM SPENCER MD Sep 07, 2024 16:18
[2024-09-05] MEDS ORDERED: POTASSIUM PHOSPHATE 22 MEQ in SODIUM CHL 0.9% 100 ML IV ONE (09:30)
[2024-09-05] MEDS: POTASSIUM CHL 20MEQ/100ML 100 ML IV SCH (10:20)
[2024-09-05 13:27] LABS: Chloride 102 mmol/L (98-107); Sodium 136 mmol/L (136-145)
[2024-09-05 13:28] LABS: Anion Gap 6 (5-15); Carbon Dioxide 28 mmol/L (20-31)
[2024-09-05 13:33] LABS: BUN/Creatinine Ratio 26.2 (10.0-20.0); Blood Urea Nitrogen 17 mg/dL (9-23)
[2024-09-05 13:41] LABS: Calcium 8.4 mg/dL (8.7-10.4); Glucose 124 mg/dL (74-106)
--- NOTE | 2024-09-05 16:01 | DVHPN2 ---
Progress Note Date Seen: Sep 05, 2024 Medical Necessity Reason Pt with a Central, PICC or Fol: No Subjective Review of Systems: HEENT:Normal Objective vital signs Vital Sign Date Time Temp Pulse Resp B/P (MAP) Pulse Ox O2 Delivery O2 Flow Rate FiO2 09/05/24 10:01 87 134/95 09/05/24 09:00 98.0 17 99 98.0 09/05/24 08:00 Room Air* 0 21 Total Intake and Output 09/04/24 09/04/24 09/05/24 15:00 23:00 07:00 Intake Total 450 ml 1882 ml 850 ml Output Total 1250 ml 950 ml Balance 450 ml 632 ml -100 ml medications Current Medications Medications Dose Ordered Sig/Lazaro Route Start Time Stop Time Status Last Admin Dose Admin Linezolid 300 ml @ 150 mls/hr Q12HR IV 09/02/24 22:00 09/05/24 10:00 150 MLS/HR Meropenem 50 ml @ 17 mls/hr Q12HR IV 09/02/24 22:00 UNV Meropenem 50 ml @ 17 mls/hr Q12HR IV 09/03/24 10:00 09/05/24 10:00 17 MLS/HR Ondansetron HCl 4 mg Q4HPRN PRN IV 09/03/24 03:30 09/05/24 03:24 4 MG Enoxaparin Sodium 70 mg Q12HR SC 09/03/24 10:00 09/05/24 10:01 70 MG Flecainide Acetate 50 mg Q12HR PO 09/03/24 22:00 09/05/24 10:20 50 MG Metoprolol Succinate 25 mg DAILY PO 09/04/24 10:00 09/05/24 10:01 25 MG Diagnostic Test (Pha) 1 strip IQ4HR 09/04/24 00:00 09/05/24 12:00 1 STRIP Insulin Human Regular IQ4HR SC 09/04/24 00:00 09/05/24 08:37 3 UNITS Dextrose 50 ml UD PRN IV 09/03/24 20:30 Insulin Glargine 28 units HS SC 09/03/24 20:45 09/04/24 22:56 28 UNITS Sodium Chloride 1,000 ml @ 100 mls/hr Q10H IV 09/03/24 20:45 09/05/24 03:12 100 MLS/HR Sucralfate 1 gm QID@0600,1130,1700,2200 GT 09/05/24 17:00 Examination: GENERAL:Normal, HEENT:Normal, CVS:Normal, ABDOMEN:Normal laboratory and microbiology Laboratory Tests 09/05/24 12:45 09/05/24 06:41 Test 09/05/24 12:45 Range/Units Serum Glucose 124 H 74-106 mg/dL Microbiology Date/Time Source Procedure Growth Status 09/02/24 21:00 Voided Urine Urine Culture - Final Complete 09/02/24 20:50 Blood Blood Culture - Preliminary NO GROWTH AFTER 48 HOURS OF INCUBATION. Resulted Problem List/Assessment/Plan Problem List/Assessment/Plan Acute kidney injury prerenal etiology in the setting of severe volume depletion No previous history of kidney disease Type 1 diabetes poorly controlled Severe hyperglycemia Severe diabetic ketoacidosis Hypokalemia continue IVF Replace potassium and magnesium per protocol replace Phos AG is still borderline elevated rec continued insulin treatment and close monitoring to prevent reopening stable from renal standpoint will sign off Plan discussed with: Patient SANTIAGO BABB MD Sep 05, 2024 16:00
[2024-09-05] MEDS: SUCRALFATE 1 GM/10 ML ORAL SUSP GT SCH (16:35)
[2024-09-05] MEDS: POTASSIUM PHOSPHATE 22 MEQ in SODIUM CHL 0.9% 100 ML IV ONE (16:35)
[2024-09-06] VITALS (9 sets, daily range): BP systolic 108–122; BP diastolic 64–84; PULSE 71–88; RESP 16–20; TEMP 97.6–98.4; O2SAT 98–100
[2024-09-06 06:40] LABS: Basophils # (auto) 0 10 ^3/uL (0-0.2); Basophils % (auto) 0.2 % (0.0-2.0); Eosinophils # (auto) 0 10 ^3/uL (0-0.8); Eosinophils % (auto) 0.7 % (0.0-7.0); Hematocrit 30.9 % (41.0-53.0); Hemoglobin 10.4 g/dL (13.5-17.5); Lymphocytes # (auto) 0.8 10 ^3/uL (0.4-5.4); Lymphocytes % (auto) 24.2 % (10.0-50.0); Mean Corpuscular Hemoglobin 27.8 pg (28.0-32.0); Mean Corpuscular Hgb Conc. 33.8 g/dL (32.0-36.0); Mean Corpuscular Volume 82.4 fL (80.0-100.0); Monocytes # (auto) 0.5 10 ^3/uL (0-1.3); Monocytes % (auto) 13.6 % (0.0-12.0); Neutrophils % (auto) 61.3 % (37.0-80.0); Nucleated Red Blood Cells % 0.1 %; Platelet Count (auto) 108 10^3/uL (140-450); Red Blood Cells 3.75 10^6/uL (4.5-5.90); Red Cell Distribution Width 14.8 % (11.8-14.3); White Blood Cell 3.3 10^3/uL (4.4-10.8)
[2024-09-06 07:16] LABS: Chloride 101 mmol/L (98-107); Sodium 137 mmol/L (136-145)
[2024-09-06 07:17] LABS: Anion Gap 9 (5-15); Calcium 8.8 mg/dL (8.7-10.4); Carbon Dioxide 27 mmol/L (20-31)
[2024-09-06 07:22] LABS: BUN/Creatinine Ratio 17.9 (10.0-20.0); Blood Urea Nitrogen 12 mg/dL (9-23)
[2024-09-06 07:37] LABS: Glucose 112 mg/dL (74-106)
[2024-09-06] MEDS: POTASSIUM CHL 20MEQ/100ML 100 ML IV SCH (12:19)
[2024-09-06] MEDS ORDERED: INSLANTI SC (18:27)
[2024-09-06] MEDS ORDERED: APIX5TAB PO (18:27)
[2024-09-06] MEDS ORDERED: PANT40T PO (18:27)
[2024-09-06] MEDS ORDERED: SUCR1SUS26 GT (18:27)
[2024-09-06] MEDS ORDERED: ONDA-155 PO (18:27)
[2024-09-06] MEDS ORDERED: METO-6 PO (18:27)
[2024-09-06] MEDS ORDERED: FLE50T PO (18:27)
--- NOTE | 2024-09-06 18:38 | DVHDSRES ---
Discharge Summary Date of Admission Resident Creating Document: MILLY CORRAL RESIDENT Sep 02, 2024 at 20:31 Date of Discharge: Sep 06, 2024 Labs/Diagnostic Data: Laboratory Results Test 09/06/24 16:49 09/06/24 06:13 09/05/24 06:41 09/03/24 08:23 POC Glucose 115 mg/dl (70-106) White Blood Count 3.3 10^3/uL (4.4-10.8) Red Blood Count 3.75 10^6/uL (4.5-5.90) Hemoglobin 10.4 g/dL (13.5-17.5) Hematocrit 30.9 % (41.0-53.0) Mean Corpuscular Volume 82.4 fL (80.0-100.0) Mean Corpuscular Hemoglobin 27.8 pg (28.0-32.0) Mean Corpuscular Hemoglobin Concent 33.8 g/dL (32.0-36.0) Red Cell Distribution Width 14.8 % (11.8-14.3) Platelet Count 108 10^3/uL (140-450) Mean Platelet Volume 7.2 fL (6.9-10.8) Neutrophils (%) (Auto) 61.3 % (37.0-80.0) Lymphocytes (%) (Auto) 24.2 % (10.0-50.0) Monocytes (%) (Auto) 13.6 % (0.0-12.0) Eosinophils (%) (Auto) 0.7 % (0.0-7.0) Basophils (%) (Auto) 0.2 % (0.0-2.0) Neutrophils # (Auto) 2.0 10 ^3/uL (1.6-8.6) Lymphocytes # (Auto) 0.8 10 ^3/uL (0.4-5.4) Monocytes # (Auto) 0.5 10 ^3/uL (0-1.3) Eosinophils # (Auto) 0 10 ^3/uL (0-0.8) Basophils # (Auto) 0 10 ^3/uL (0-0.2) Nucleated Red Blood Cells 0.1 % Sodium Level 137 mmol/L (136-145) Potassium Level 3.0 mmol/L (3.5-5.1) Chloride Level 101 mmol/L (98-107) Carbon Dioxide Level 27 mmol/L (20-31) Anion Gap 9 (5-15) Blood Urea Nitrogen 12 mg/dL (9-23) Creatinine 0.67 mg/dL (0.700-1.30) Glomerular Filtration Rate Calc 126 mL/min (>90) BUN/Creatinine Ratio 17.9 (10.0-20.0) Serum Glucose 112 mg/dL (74-106) Calcium Level 8.8 mg/dL (8.7-10.4) Phosphorus Level 1.6 mg/dL (2.4-5.1) Magnesium Level 2.0 mg/dL (1.6-2.6) Total Bilirubin 0.8 mg/dL (0.2-1.0) Aspartate Amino Transferase (AST) 9 U/L (13-40) Alanine Aminotransferase (ALT) < 9 U/L (7-40) Alkaline Phosphatase 67 U/L (46-116) Total Protein 5.5 g/dL (5.7-8.2) Albumin 3.3 g/dL (3.2-4.8) Differential Total Cells Counted 100.0 (100) Neutrophils % (Manual) 92 (37.0-80.0) Band Neutrophils % (Manual) 0 Lymphocytes % (Manual) 2 (10.0-50.0) Monocytes % (Manual) 6 (0-12) Eosinophils % (Manual) 0 (0-7) Basophils % (Manual) 0 (0.0-2.0) Metamyelocytes % (manual) 0 Myelocytes % (Manual) 0 Promyelocytes % (Manual) 0 Blast Cells % (Manual) 0 Reactive Lymphocytes 0 Platelet Estimate Adequate Lactic Acid Level 1.2 mmol/L (0.4-2.0) Test 09/03/24 06:36 09/02/24 23:30 09/02/24 22:55 09/02/24 21:00 Blood Gas Specimen Type Arterial Blood Gas Sample Site Right radial Blood Gas Patient Temperature 37.0 Arterial Blood Date Drawn [id number] Arterial Blood pH 7.284 (7.350-7.450) Arterial Blood Partial Pressure CO2 25.3 mmHg (35.0-48.0) Arterial Blood Partial Pressure O2 103.6 mmHg (83.0-108.0) Arterial Blood HCO3 11.7 mmol/L (21.0-28.0) Arterial Blood Oxygen Saturation 97.3 % (94.0-98.0) Arterial Blood Base Excess -13.0 mmol/L (-2.0-3.0) Arterial Blood Oxyhemoglobin 95.7 % (94.0-98.0) Arterial Blood Carboxyhemoglobin 1.0 % (0.5-1.5) Arterial Blood Methemoglobin 0.6 % (0.0-1.5) Baljit Test Yes Blood Gas Total Hemoglobin 14.60 g/dL (13.5-17.5) Blood Gas Modality Room air FiO2 % 21.0 Troponin I High Sensitivity 24 ng/L (</=54) Influenza Type A Antigen Negative (Negative) Influenza Type B Antigen Negative (Negative) SARS-CoV-2 Antigen (Rapid) Negative (NEGATIVE) Urine Color Colorless (Yellow) Urine Clarity Clear (Clear) Urine pH 5.0 (5.0-9.0) Urine Specific [place] 1.016 (1.001-1.035) Urine Protein Trace (Negative) Urine Ketones 3+ (Negative) Urine Blood Trace /uL (Negative) Urine Nitrite Negative (Negative) Urine Bilirubin Negative (Negative) Urine Urobilinogen Normal mg/dL (Negative) Urine Leukocyte Esterase Negative /uL (Negative) Urine RBC <1 /hpf (0 - 3) Urine Microscopic WBC 1 /HPF (0-3) Urine Squamous Epithelial Cells None seen /hpf (<5) Urine Bacteria None seen /hpf (None Seen) Urine Mucus Few (None Seen) Urine Glucose 4+ mg/dL (Normal) Urine Opiates Screen Neg (NEGATIVE) Urine Fentanyl Screen Neg (NEGATIVE) Urine Barbiturates Screen Neg (NEGATIVE) Urine Phencyclidine Screen Neg (NEGATIVE) Urine Amphetamines Screen Neg (NEGATIVE) Urine Benzodiazepines Screen Neg (NEGATIVE) Urine Cocaine Screen Neg (NEGATIVE) Urine Cannabinoids Screen Neg (NEGATIVE) Test 09/02/24 20:56 09/02/24 18:32 09/02/24 18:27 Blood Gas Spontaneous Rate 24 Blood Gas Critical Value Read Back yes Blood Gas Notified Whom md wandy kinney Blood Gas Notified Time [id number] Blood Gas Notified By exceptional student education teacher birgit solis Hemoglobin A1c 10.0 % A1C (<5.7) Serum Osmolality 357 mOsm/kg (278-298) Creatine Kinase 116 U/L (46-171) Lipase 42 U/L (12-53) Beta-Hydroxybutyric Acid > 4.500 mmol/L (< 0.4) Plasma/Serum Blood Alcohol 4.7 mg/dL (<10) Venous Blood pH 7.098 (7.320-7.430) Venous Blood pCO2 at Patient Temp 19.1 mmHg (38.0-54.0) Venous Blood pO2 at Patient Temp 44.2 mmHg (23.0-48.0) Venous Blood HCO3 5.8 mmol/L (22.0-29.0) Venous Blood Base Excess -22.0 mmol/L (-2.0-3.0) Other Laboratory Tests 09/06/24 06:13 Brief Hx & Hospital Course: Luis Ortiz is a 34-year-old male patient who presents to the ED with chief complaint of polyuria, polydipsia, dizziness, fatigue and nausea and vomiting which started the day of his admission. Patient reports noncompliance with insulin treatment, and also heavy ethanol abuse (two pints of vodka every night) with a history of type 1 diabetes mellitus (poor compliance with insulin). Denies fever, chills, syncope, palpitation, chest pain, dyspnea, diarrhea, dysuria, sick contacts, recent travel and motor or sensory deficits. Past Medical History: Diabetes Mellitus Type 1 (insulin-dependent, poor compliance), hypertension, dyslipidemia, ethanol abuse, multiple admissions due to DKA, paroxysmal atrial fibrillation (chads Vasc 2/has bled 1) on anticoagulation with apixaban Surgical history: Denies Family history: Paternal family has heart disease, maternal grandmother had colon cancer Social history: Lives in [place] with mother. Heavy ethanol abuse (two pints of vodka per night). Denies current tobacco and other drug abuse Allergies: Denies Home medication: Insulin Glargine: 20 UI only, atorvastatin, and pantoprazole Brief hospital course: Acute metabolic encephalopathy secondary to DKA, ruling out sepsis during hospitalization, associated with KEILA, paroxysmal atrial fibrillation with RVR, nonsustained V-tach and electrolyte derangement, responding to IV fluids, empiric IV antibiotic (linezolid and meropenem), electrolyte replenishment and insulin drip for approximately [address] which ruled out acute intracranial pathology. Nephrology consulted who optimize medical therapy. Cardiology was consulted, recommending flecainide and apixaban for paroxysmal atrial fibrillation, discontinued amiodarone drip since cause of ventricular tachycardia should be secondary to electrolyte derangement. Discussed with patient compliance, he says that he would be more compliant if he had continuous blood glucose monitoring, recommended to discuss as outpatient with PCP. Patient has heavy ethanol abuse (two pt of vodka per night), counseled and offered resources for cessation. Patient hemodynamically stable, asymptomatic, with long-acting insulin and sliding scale, in condition to be discharged home once repeat potassium is within normal limits. 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 DIAGNOSIS # Acute metabolic encephalopathy due to DKA versus sepsis # Diabetic Ketoacidosis # Ruled out sepsis # Acute Kidney Injury vasomotor mediated # Phosphatemia alteration # Hypermagnesemia # Hypokalemia # Paroxysmal atrial fibrillation with RVR (chads Vasc 2/has bled 1) secondary hypercoagulability state # Non sustained Ventricular Tachycardia # Medical Noncompliance # Diabetes type 1 - Uncontrolled (hemoglobin 10) Goals of care discussed with patient for over 18 minutes: Full code status Discussed plan with Dr. Fernandez, patient and nurses Examination Patient lying in bed, in no acute distress General: Lucid, afebrile, mucosae are moist Cardiovascular: Tachycardia, Normal S1 and S2. No murmurs, gallops or rubs Respiratory: Normal ventilation mechanics. Clear lung sounds on auscultation Abdomen: Soft, nontender, no organomegaly, normal bowel sounds MSK/skin: Mobilizes 4 limbs. Skin is dry and warm Neurological: Oriented in 3 spheres. No motor no sensitive deficits. Pupils are isocoric and reactive Operations or Procedures CHEST RADIOGRAPH Indication: dyspnea Technique: Single frontal view of the chest was obtained COMPARISON: XY CHEST XRAY 1 VIEW on DOS: 07/14/24, XY CHEST XRAY 1 VIEW on DOS: 07/11/24, XY CHEST PORTABLE on DOS: 11/30/23, XY CHEST PORTABLE on DOS: 07/03/23, CHEST XRAY 1 VIEW on DOS: 08/06/22 FINDINGS: Lines and Tubes: Transcutaneous pacemaker overlies the cardiac silhouette. Lungs: Clear Pleura: No effusion. No pneumothorax. Cardiomediastinal contours: Unremarkable Bones: Unremarkable IMPRESSION: 1. Clear lungs. ATED BY: ZAIN KEEN MD DICTATED DATE/TIME: 09/03/24 0328 EXAM: CT Head Without Intravenous Contrast CLINICAL INDICATION: METABOLIC ENCEPHALOPATHY TECHNIQUE: Axial computed tomography images of the head/brain without intravenous contrast. This CT exam was performed using one or more of the following dose reduction techniques: automated exposure control, adjustment of the mA and/or kV according to patient size, and/or use of iterative reconstruction technique. CONTRAST: RADIATION DOSE: CTDIvol = 53.47 mGy, DLP = 857.2 mGy-cm COMPARISON: None FINDINGS: BRAIN AND EXTRA-AXIAL SPACES: Unremarkable. No hemorrhage. No significant white matter disease. No edema. No ventriculomegaly. BONES/JOINTS: Unremarkable. No acute fracture. SOFT TISSUES: Unremarkable. SINUSES: Unremarkable as visualized. No acute sinusitis. MASTOID AIR CELLS: Unremarkable as visualized. No mastoid effusion. OTHER FINDINGS: . None. IMPRESSION: No acute intracranial hemorrhage, midline shift or mass effect. ATED BY: HARRIS CHIN MD DICTATED DATE/TIME: 09/04/24 0951 EXAM: LIMITED Two-dimensional and M-mode echocardiogram with Doppler and color Doppler. Blood Pressure: 163/91 mmHg INDICATION afib RISK FACTORS Height: 5'7, Weight: 160 DIMENSIONS LVDd 4.3 (3.8-5.7cm) LA (2D) 2.7 (1.9-4.0cm) Aortic Root 3.5 (2.0- 3.7cm) LVDs 3.0 (2.5-4.0cm) LA (MM) (1.9-4.0cm) Aortic Cusp Exc 1.6 (1.5- 2.0cm) EF (%) 55.0 (55-70%) Rt. Atrium 3.1 (1.9-4.0cm) Asc. Aorta cm IVSd 1.0 (0.7-1.1cm) RV (D) (1.8-2.4cm) PWd 1.0 (0.7-1.1cm) Mitral Valve Mitral Mitral Stenosis E wave 0.53m/s MV Mean GR. mmHg A wave 0.75m/s MV Peak GR. mmHg E/A ratio 0.7 2D MVA cm2 DECEL Time 198ms PRESS 1/2 Time ms Aortic Valve Aortic Valve Aortic Stenosis V1 0.82m/s AO Mean GR. 3mmHg V2 1.14m/s AO Peak GR. 5mmHg LVOT Diameter 2.3 (1.8-2.4cm) Doppler HA 2.99cm2 Conclusion Technically good study. Off axis views. Normal chamber sizes. Valves are normal. EF of 55-60% with normal RV function. Dopplers unremarkable. No pericardial effusion masses or vegetations. SIGNED BY: LULA RANGEL Sr., MD SIGNED DATE/TIME: 09/03/241824 Condition at Discharge: Good Final Diagnosis/Problems List # Acute metabolic encephalopathy due to DKA versus sepsis # Diabetic Ketoacidosis # Ruled out sepsis # Acute Kidney Injury vasomotor mediated # Phosphatemia alteration # Hypermagnesemia # Hypokalemia # Paroxysmal atrial fibrillation with RVR (chads Vasc 2/has bled 1) secondary hypercoagulability state # Non sustained Ventricular Tachycardia # Medical Noncompliance # Diabetes type 1 - Uncontrolled (hemoglobin 10) Discharge Disposition: Home SNF Discharge Will this Physician continue t: No Discharge Statement: "Patient was advised to return to the ER or call 911 if any headaches, dizziness, shortness of breath, chest pain, abdominal pain, bleeding, fevers, or worsening of medical condition. Patient was counseled about treatment plan, medications, possible side effects, patientverbalized understanding. All questions were answered to the best of my ability. This discharge took greater then 30 minutes in planning, reviewing documentation, counseling the patient, and discussing with other team members." ASSESSMENT ASSESSMENT Assessment MILLY CORRAL RESIDENT Sep 06, 2024 18:37
== END 2024-09-07 00:20 | disposition home or self-care (01) | DRG 420 ==
LOC: ER 18:07 → EDBD 18:07 → EDSEX 18:07 → OVERFLOW 20:31 → TELE-WESTW 09-03 18:03
PROVIDERS: ADMIT Student in an Organized Health Care Education/Training Program; ATTEND Emergency Medicine
DX: E10.10 Type 1 diabetes mellitus with ketoacidosis without coma (principal); N17.0 Acute kidney failure with tubular necrosis; D68.59 Other primary thrombophilia; E83.39 Other disorders of phosphorus metabolism; E83.41 Hypermagnesemia; I47.20 Ventricular tachycardia, unspecified; E86.9 Volume depletion, unspecified; I48.0 Paroxysmal atrial fibrillation; I85.00 Esophageal varices without bleeding; E78.5 Hyperlipidemia, unspecified; Z20.822 Contact with and (suspected) exposure to COVID-19; E10.65 Type 1 diabetes mellitus with hyperglycemia; E87.6 Hypokalemia; N17.9 Acute kidney failure, unspecified; F10.20 Alcohol dependence, uncomplicated; I10 Essential (primary) hypertension; Z79.4 Long term (current) use of insulin; Z82.49 Family history of ischemic heart disease and other diseases of the circulatory system; Z82.5 Family history of asthma and other chronic lower respiratory diseases; Z91.199 Patient's noncompliance with other medical treatment and regimen due to unspecified reason; Z79.899 Other long term (current) drug therapy
CPT/HCPCS: 36415; 36600; 70450; 71045; 80048; 80053; 80307; 80320; 81001; 82010; 82550; 82805; 82962; 83036; 83605; 83690; 83735; 83930; 84100; 84132; 84484; 85007; 85025; 85027; 87040; 87086; 87426; 87804; 93005; 93306; 96365; 96367; 96375; 96376; 99291; G0378; J1815; J2185; J2405; J3480

== ENCOUNTER 2024-10-19 13:25 | Inpatient (IN) | payer MEDICAID ==
[2024-10-19] VITALS (7 sets, daily range): BP systolic 138–160; BP diastolic 94–106; PULSE 116–134; RESP 12–20; TEMP 97.9; O2SAT 95–100
[~2024-10-19] VITALS: Ht 172.7 cm; Wt 65.6 kg
[~2024-10-19 13:25] MED LIST changes: +APIX5TAB PO; +FLE50T PO; -INSLISPI SC; -INSU1INJ19 SC; +METO-6 PO; +ONDA-155 PO; +SUCR1SUS26 GT
[2024-10-19] MEDS: SODIUM CHLORIDE 0.9% 1,000 ML IV ONE ×2 (13:45→17:20)
--- NOTE | 2024-10-19 13:54 | ED.PDOC ---
History of Present Illness HPI Comments Mr. Ortiz, 34-year-old gentleman with past medical history significant for hypertension, dyslipidemia, ethanol abuse, multiple admissions due to DKA, paroxysmal atrial fibrillation (chads Vasc 2/has bled 1) on anticoagulation with apixaban, Patient reports chronic nonadherence with insulin treatment (last H bA1c 10+), and also heavy ethanol abuse (two pints of vodka every night) with a history of type 1 diabetes mellitus (poor compliance with insulin) presents with 2 days of nausea, nonbloody non biliary vomiting, mild dehydration. Denies fever, chills, syncope, palpitation, chest pain, dyspnea, diarrhea, dysuria, sick contacts, recent travel and motor or sensory deficits. Last alcohol intake 10/14/2024, . Recurrent previous hospitalization due to DKA, last time was mid August 2024. Past Medical History: As above Surgical history: Denies Family history: Paternal family has heart disease, maternal grandmother had colon cancer otherwise noncontributory. Social history: Lives in [place] with mother. Heavy ethanol abuse (two pints of vodka per night). Denies current tobacco and other drug abuse Allergies: Denies Home medication: Eliquis 5 b.i.d., atorvastatin 20 mg daily, flecainide 50 mg p.o. b.i.d., metoprolol succinate 50 mg insulin basal bolus SSI. Pantoprazole 40 mg daily, sucralfate q.i.d.. Ondansetron 4 mg as needed. Chief Complaint: Hyperglycemia Time Seen by MD: 13:30 Primary Care Provider: UNKNOWN Allergies: Coded Allergies: NO KNOWN ALLERGIES (Unverified , 06/03/22) Home Meds Active Scripts Ondansetron HCl (Ondansetron) 4 Mg Tab, 4 MG PO BID PRN for 30 Days, #60 TAB Prov:MILLY CORRAL RESIDENT 09/06/24 Pantoprazole Sodium Sesquihydr (Pantoprazole Sodium) 40 Mg Tab, 40 MG PO DAILY for 30 Days, #30 TAB Prov:MILLY CORRAL RESIDENT 09/06/24 Apixaban Base (ELIQUIS) 5 Mg Tab, 5 MG PO BID for 30 Days, #60 TAB Prov:MILLY CORRAL RESIDENT 09/06/24 Insulin Glargine (Lantus) 100 Unit/Ml Inj, 28 UNITS SC HS for 30 Days, #30 INJ Prov:MILLY CORRAL RESIDENT 09/06/24 Sucralfate (CARAFATE SUSP) 1 Gm/10 Ml Ss, 1 GM GT QID@0600,1130,1700,2200 for 30 Days, #120 ML Prov:MILLY CORRAL [facility] [place] 09/06/24 Metoprolol Succinate (Toprol Xl) 50 Mg Tab, 25 MG PO DAILY for 30 Days, #15 TAB Prov:MILLY CORRAL [facility] [place] 09/06/24 Flecainide Acetate (TAMBOCOR TABLET) 50 Mg Tb, 50 MG PO Q12HR for 30 Days, #60 TAB Prov:MILLY CORRAL [facility] [place] 09/06/24 Pantoprazole Sodium Sesquihydr (Pantoprazole Sodium) 40 Mg Tab, 40 MG PO DAILY@0600 for 30 Days, #30 TAB Prov:RIZWANA RODRIGUEZ RESIDENT 12/03/23 Insulin Aspart (Insulin Aspart Flexpen) 100 Unit/Ml Inj, 100 UNIT SC ACHS for 60 Days, #3 INJ Blood sugar 150 to 250: 2 units Blood sugar 251 to 350: 4 units Blood sugar 351 to 400: 6 units Blood sugar 401 and above: 8 units and go to emergency room Prov:COREEN VILLALTA NP 07/05/23 Insulin Regular (Human) (Novolin R) 100 Unit/Ml Inj, 1-15 UNITS SC Q6HPRN PRN for 30 Days, #5 INJ 0 Refills take 1-15 units Q6hr ACHS per sliding scale Prov:VERENA BAUTISTA MD 11/07/21 Atorvastatin Calcium (Lipitor) 20 Mg Tab, 1 TAB PO DAILY, #30 TAB Prov:VERENA BAUTISTA MD 11/07/21 Information Source: Patient Mode of Arrival: EMS Severity: Moderate Timing: Days Duration: Since onset Prehospital treatment: Accucheck, Other (IV fluids) Past Medical History PAST MEDICAL HISTORY: DM, High Lipids, HTN, Liver, Seizures Past Medical History (Other): As per HPI Surgical History: Denies all surgeries Surgical History (Other): As per HPI Family History Family History: Reviewed,noncontributory to illness Family History (Other): As per HPI Social History Smoker: Non-Smoker Alcohol: Heavy Drugs: Denies Drug Use Lives In: Home Constitutional: reports: fatigue, malaise; denies: chills, diaphoresis, fever, sweats, weakness, others EENTM: denies: blurred vision, double vision, ear bleeding, ear discharge, ear drainage, ear pain, ear ringing, eye pain, eye redness, hearing loss, mouth pain, mouth swelling, nasal discharge, nose bleeding, nose congestion, nose pain, photophobia, tearing, throat pain, throat swelling, voice changes, others Respiratory: denies: cough, hemoptysis, orthopnea, SOB at rest, shortness of breath, SOB with excertion, stridor, wheezing, others Cardiovascular: denies: chest pain, dizzy spells, diaphoresis, Dyspnea on exertion, edema, irregular heart beat, left arm pain, lightheadedness, palpitations, PND, syncope, others Gastrointestinal: reports: abdominal pain, nausea, poor appetite, poor fluid intake, vomiting (Nonbloody non biliary 3 times since morning.); denies: abdomen distended, blood streaked bowels, constipated, diarrhea, dysphagia, difficulty swallowing, hematemesis, melena, rectal bleeding, rectal pain, others Genitourinary: denies: burning, dysuria, flank pain, frequency, hematuria, inc ontinence, penile discharge, penile sore, pain, testicle pain, testicle swelling, urgency, others Neurological: denies: dizziness, fainting, headache, left sided numbness, left sided weakness, numbness, paresthesia, pre-existing deficit, right sided numbness, right sided weakness, seizure, speech problems, tingling, tremors, weakness, others Musculoskeletal: denies: back pain, gout, joint pain, joint swelling, muscle pain, muscle stiffness, neck pain, others Integumetry: denies: bruises, change in color, change in hair/nails, dryness, laceration, lesions, lumps, rash, wounds, others Allergic/Immunocompromised: denies: Difficulty Healing, Frequent Infections, Hives, Itching, others Hematologic/Lymphatic: denies: anemia, blood clots, easy bleeding, easy bruising, swollen glands, others Endocrine: denies: excessive hunger, excessive sweating, excessive thirst, excessive urination, flushing, intolerance to cold, intolerance to heat, unexplained weight gain, unexplained weight loss, others Psychiatric: denies: anxiety, bipolar disorder, depression, hopeless, panic disorder, schizophrenia, sleepless, suicidal, others Physical Exam General Appearance: Mild Distress HEENT: Normal ENT Inspection (Grossly, oral mucosa dry, mildly dehydrated.) Neck: Normal Inspection Respiratory: Lungs Clear, No Accessory Muscle Use, Normal Breath Sounds Cardiovascular: No Edema, No JVD, No Murmur, No Gallop, Normal Peripheral Pulses, Regular Rate/Rhythm Breast Exam: Deferred Gastrointestinal: Non Tender, Normal Bowel Sounds Genitalia: Deferred Pelvic: Deferred Rectal: Deferred Extremities: Non-tender, No pedal edema Neurologic: Alert, No Motor Deficits, Normal Affect, Normal Mood Cerebellar Function: NOT DONE Reflexes: NOT DONE Skin: Dry, Normal Color, Warm Lymphatic: NOT DONE Was a procedure done? Was a procedure done?: No Differential Dx Considerations may include: DKA, HHS, anion gap metabolic acidosis, medical nonadherence, possible source of infection yet to be determined, unknown trigger, viral/bacterial gastroenteritis, pancreatitis, intra-abdominal infection. X-Ray, Labs, Meds, VS Vital Signs Date Time Temp Pulse Resp B/P (MAP) Pulse Ox O2 Delivery O2 Flow Rate FiO2 10/19/24 13:34 99.0 136 24 133/94 (107) 98 99.0 Lab Test 10/19/24 13:53 10/19/24 13:43 Range/Units Blood Gas Specimen Type Arterial Blood Gas Sample Site Left radial Blood Gas Patient Temperature 37.0 Arterial Blood Date Drawn [id number] Arterial Blood pH 7.425 7.350-7.450 Arterial Blood Partial Pressure CO2 20.7 L 35.0-48.0 mmHg Arterial Blood Partial Pressure O2 93.1 83.0-108.0 mmHg Arterial Blood HCO3 13.3 L 21.0-28.0 mmol/L Arterial Blood Oxygen Saturation 97.2 94.0-98.0 % Arterial Blood Base Excess -8.8 L -2.0-3.0 mmol/L Arterial Blood Oxyhemoglobin 96.1 94.0-98.0 % Arterial Blood Carboxyhemoglobin 0.8 0.5-1.5 % Arterial Blood Methemoglobin 0.3 0.0-1.5 % Baljit Test Yes Blood Gas Total Hemoglobin 13.60 13.5-17.5 g/dL Blood Gas Modality Room air FiO2 % 21.0 White Blood Count 17.6 H 4.4-10.8 10^3/uL Red Blood Count 6.11 H 4.5-5.90 10^6/uL Hemoglobin 13.6 13.5-17.5 g/dL Hematocrit 43.0 41.0-53.0 % Mean Corpuscular Volume 70.5 L 80.0-100.0 fL Mean Corpuscular Hemoglobin 22.2 L 28.0-32.0 pg Mean Corpuscular Hemoglobin Concent 31.5 L 32.0-36.0 g/dL Red Cell Distribution Width 21.2 H 11.8-14.3 % Platelet Count 176 140-450 10^3/uL Mean Platelet Volume 7.9 6.9-10.8 fL Neutrophils (%) (Auto) 92.6 H 37.0-80.0 % Lymphocytes (%) (Auto) 1.6 L 10.0-50.0 % Monocytes (%) (Auto) 5.5 0.0-12.0 % Eosinophils (%) (Auto) 0.0 0.0-7.0 % Basophils (%) (Auto) 0.3 0.0-2.0 % Neutrophils # (Auto) 16.3 H 1.6-8.6 10 ^3/uL Lymphocytes # (Auto) 0.3 L 0.4-5.4 10 ^3/uL Monocytes # (Auto) 1.0 0-1.3 10 ^3/uL Eosinophils # (Auto) 0 0-0.8 10 ^3/uL Basophils # (Auto) 0 0-0.2 10 ^3/uL Nucleated Red Blood Cells 0.1 % Sodium Level 131 L 136-145 mmol/L Potassium Level 3.5 3.5-5.1 mmol/L Chloride Level 84 L 98-107 mmol/L Carbon Dioxide Level 13 L 20-31 mmol/L Anion Gap 34 H 5-15 Blood Urea Nitrogen 29 H 9-23 mg/dL Creatinine 2.38 H 0.700-1.30 mg/dL Glomerular Filtration Rate Calc 36 >90 mL/min BUN/Creatinine Ratio 12.2 10.0-20.0 Serum Glucose 425 *H 74-106 mg/dL Serum Osmolality 323 H 278-298 mOsm/kg Calcium Level 9.5 8.7-10.4 mg/dL Phosphorus Level 3.2 2.4-5.1 mg/dL Magnesium Level 2.4 1.6-2.6 mg/dL Total Bilirubin 0.8 0.2-1.0 mg/dL Aspartate Amino Transferase (AST) 14 13-40 U/L Alanine Aminotransferase (ALT) 13 7-40 U/L Alkaline Phosphatase 135 H 46-116 U/L Total Protein 8.9 H 5.7-8.2 g/dL Albumin 5.5 H 3.2-4.8 g/dL Lipase 1013 H 12-53 U/L Beta-Hydroxybutyric Acid > 4.500 H < 0.4 mmol/L Plasma/Serum Blood Alcohol 3.2 <10 mg/dL Time of 1ST Reevaluation: 14:53 Reevaluation 1ST: Improved (After ondansetron, nausea improved, status post IV fluid 1000 mL. Hemodynamically stable, BG in 400s. Last diet as per patient yesterday.) Time of 2ND Reevaluation: 15:23 Reevaluation 2ND: Unchanged (Anion gap metabolic acidosis, DKA confirmed, mildly dehydrated, sodium WNL, potassium 3.5, started the patient with hydration, insulin drip, ICU level of care, q.4 BNP, optimum hydration and further source of infection workup to follow up. Discussed with Dr. Bobby. ) Patient Education/Counseling: Diagnosis, Treatment, Prognosis Family Education/Counseling: No Family Present Sepsis Sepsis Reasesment Focused Exam Sepsis focused exam: focus exam completed, time: (3:27 p.m.. Patient to have unknown source of infection but possible SIRS/sepsis meeting high white count, tachycardia tachypnea. Further workup pending sepsis dose IV fluid and broad- spectrum antibiotic coverage with IV vancomycin and cefepime done) Departure 1 Departure Time of Disposition: 15:28 Impression: Primary Impression: DKA (diabetic ketoacidoses) Additional Impressions: Sepsis Qualified Codes: A41.9 - Sepsis, unspecified organism Dehydration High anion gap metabolic acidosis Acute kidney failure Qualified Codes: N17.9 - Acute kidney failure, unspecified Disposition: 09 ADMITTED INPATIENT Admit to: ICU Condition: Critical Critical Care Note Critical Care Time?: Yes (45 min-critical care time only) Critical care comment: Spent 46 minutes regarding chart review, physical exam, planning and execution of assessment and treatment of possible DKA in this high-risk individual excluding procedures. Discussed with Dr. Bobby Stability Stability form required: GEOFFREY Selby RESIDENT Oct 19, 2024 13:54
[2024-10-19 14:00] LABS: Base Excess -8.8 mmol/L (-2.0-3.0)
[2024-10-19 14:00] LABS: Basophils # (auto) 0 10 ^3/uL (0-0.2); Eosinophils # (auto) 0 10 ^3/uL (0-0.8); Hemoglobin 13.6 g/dL (13.5-17.5); Lymphocytes # (auto) 0.3 10 ^3/uL (0.4-5.4)
[2024-10-19] MEDS ORDERED: InsuLIN REG 1unit/0.01ml Soln (100units/ml) SC ONE (14:00)
[2024-10-19 14:02] LABS: Basophils % (auto) 0.3 % (0.0-2.0); Lymphocytes % (auto) 1.6 % (10.0-50.0); Mean Corpuscular Hemoglobin 22.2 pg (28.0-32.0); Mean Corpuscular Hgb Conc. 31.5 g/dL (32.0-36.0); Mean Corpuscular Volume 70.5 fL (80.0-100.0); Monocytes % (auto) 5.5 % (0.0-12.0); Neutrophils # (auto) 16.3 10 ^3/uL (1.6-8.6); Neutrophils % (auto) 92.6 % (37.0-80.0); Nucleated Red Blood Cells % 0.1 %; Platelet Count (auto) 176 10^3/uL (140-450); Red Blood Cells 6.11 10^6/uL (4.5-5.90); Red Cell Distribution Width 21.2 % (11.8-14.3); White Blood Cell 17.6 10^3/uL (4.4-10.8)
[2024-10-19 14:13] LABS: Blood Alcohol 3.2 mg/dL (<10); Magnesium 2.4 mg/dL (1.6-2.6)
[2024-10-19 14:14] LABS: Phosphorus 3.2 mg/dL (2.4-5.1)
[2024-10-19 14:38] LABS: Alanine Aminotransferase 13 U/L (7-40); Anion Gap 34 (5-15); Aspartate Aminotransferase 14 U/L (13-40); BUN/Creatinine Ratio 12.2 (10.0-20.0); Calcium 9.5 mg/dL (8.7-10.4); Potassium 3.5 mmol/L (3.5-5.1)
[2024-10-19 14:39] LABS: Bilirubin, Total 0.8 mg/dL (0.2-1.0); Blood Urea Nitrogen 29 mg/dL (9-23); Carbon Dioxide 13 mmol/L (20-31); Chloride 84 mmol/L (98-107); Sodium 131 mmol/L (136-145)
--- NOTE | 2024-10-19 14:39 | DVH ---
EXAM: XY CHEST PORTABLE Indication: Pain Technique: Single frontal view of the chest was obtained Comparison: XY CHEST XRAY 1 VIEW on DOS: 09/03/24, XY CHEST XRAY 1 VIEW on DOS: 07/14/24, XY CHEST XRAY 1 VIEW on DOS: 07/11/24, XY CHEST PORTABLE on DOS: 11/30/23, XY CHEST PORTABLE on DOS: 07/03/23 FINDINGS: Lines and Tubes: None Lungs: No focal consolidation. Pleura: No effusion. No pneumothorax. Cardiomediastinal contours: Unremarkable Bones: No acute osseous abnormality. IMPRESSION: No acute cardiopulmonary disease.
[2024-10-19 14:40] LABS: Albumin 5.5 g/dL (3.2-4.8); Alkaline Phosphatase 135 U/L (46-116); Glucose 425 mg/dL (74-106); Total Protein 8.9 g/dL (5.7-8.2)
[2024-10-19] MEDS ORDERED: DEXTROSE (50%) 50ML SYRG IV PRN ×2 (15:00→19:00)
[2024-10-19] MEDS ORDERED: SODIUM CHLORIDE 0.9% 1,000 ML IV SCH ×4 (15:00→21:00)
[2024-10-19] MEDS: POTASSIUM CHLORIDE 20 MEQ, LIDOCAINE 1% (LOCAL ANESTH.) 2 ML in SODIUM CHL 0.9% 100 ML IV ONE (15:15)
[2024-10-19] MEDS: ACCU-CHEK COMFORT CURVE STRIP VI SCH (16:00)
[2024-10-19] MEDS: ONDANSETRON HCL 4 MG/2 ML VIAL IV ONE (16:02)
[2024-10-19] MEDS: INSULIN LANTUS (GLARGINE) 1 /0.01ml (100units/ml) SC ONE (16:03)
[2024-10-19] MEDS: INSULIN DRIP 100 UNIT/100ML 100 ML IV SCH (16:12)
[2024-10-19] MEDS: PANTOPRAZOLE 40 MG/10 ML VIAL INJ IV SCH (17:23)
[2024-10-19] MEDS: VANCOMYCIN 1GM/200ML PM 200 ML IV ONE (17:24)
[2024-10-19] MEDS ORDERED: D5W/SOD CHL 0.45%/KCL 20MEQ 1,000 ML IV ONE (18:00)
[2024-10-19] MEDS ORDERED: ACCU-CHEK COMFORT CURVE STRIP VI SCH (18:00)
[2024-10-19 18:31] LABS: Urine Bacteria None Seen /hpf (None Seen)
[2024-10-19 18:49] LABS: Urine Blood 1+ /uL (Negative); Urine Clarity Clear (Clear); Urine Color Light-Yellow (Yellow); Urine Protein, UAD 1+ (Negative); Urine Specific Gravity 1.015 (1.001-1.035); Urine Squamous Epithelial Cell None Seen /hpf (<5); Urine Urobilinogen Normal (Negative); Urine WBC 1 /HPF (0-3); Urine pH 5.5 (5.0-9.0)
[2024-10-19] MEDS: CEFEPIME 2GM/50ML NS 50 ML IV ONE (18:59)
[2024-10-19] MEDS ORDERED: NITROGLYCERIN 0.4 MG SL TAB SL PRN (19:00)
[2024-10-19] MEDS ORDERED: MORPHINE SULFATE INJ 2 MG/ml SYRG IV PRN (19:00)
[2024-10-19 19:03] LABS: Amphetamine Screen, Urine Neg (NEGATIVE); Barbiturate Scree,Urine Neg (NEGATIVE); Benzodiazephine Screen, Urine Neg (NEGATIVE); Cannabinoid Screen, Urine Neg (NEGATIVE); Cocaine Screen, Urine Neg (NEGATIVE); Opiate Scree,Urine Neg (NEGATIVE); Phencyclidine Screen, Urine Neg (NEGATIVE)
[2024-10-19 19:11] LABS: Anion Gap 25 (5-15); Sodium 138 mmol/L (136-145)
[2024-10-19 19:12] LABS: Calcium 8.9 mg/dL (8.7-10.4)
--- NOTE | 2024-10-19 19:14 | DVH ---
Exam: CT CT AB PEL WO CON-NO ORAL OR IV History: R/O PANCREATITIS Comparison Study: None available at time of dictation. TECHNIQUE: Multidetector CT of the pelvis without IV contrast. Axial, coronal and sagittal multiplana r reformats were obtained from the axial data set by the technologist. Radiation Dose Information: CT Dose: CTDI volume is 6.31 mGy. Dose-length product is 337.17 mGy*cm FINDINGS: 7 mm right lower lobe ground-glass nodule. Otherwise, the lung bases are clear. Partially visualiz ed heart is unremarkable. Mild hepatomegaly with no focal hepatic lesions. Otherwise, liver, spleen, gallbladder, and adrenal glands unremarkable. There is peripancreatic stranding/ edema. Kidneys, ureters and urinary bladder unremarkable. Prostate is unremarkable. Stomach is unremarkable. Small bowel loops unremarkable. Appendix is unremarkable. Mild wall thicken ing of the ascending colon, transverse colon and descending colon. Moderate amount of fecal material within the sigmoid with large amount of fecal material within the rectum. No evidence of intraperitoneal free air or free fluid. No evidence of aortic aneurysm. No significant lymphadenopathy. Small fat containing left inguinal hernia. The soft tissues otherwise unremarkable. No destructive os seous lesions noted. Sclerotic focus of the bilateral iliac bones which represent bone islands blasti c lesions not excluded. IMPRESSION: Findings consistent with acute pancreatitis. Mild colitis involving the ascending, transverse and descending colon. Mild hepatomegaly. 7 mm right lower lobe ground-glass nodule. Recommend follow-up per Fleischner criteria.
[2024-10-19 19:17] LABS: BUN/Creatinine Ratio 13.8 (10.0-20.0)
[2024-10-19 19:33] LABS: Blood Urea Nitrogen 25 mg/dL (9-23); Carbon Dioxide 15 mmol/L (20-31); Chloride 98 mmol/L (98-107); Glucose 165 mg/dL (74-106); Potassium 2.7 mmol/L (3.5-5.1)
[2024-10-19] MEDS ORDERED: POTASSIUM CHLORIDE 40 MEQ, LIDOCAINE 1% (LOCAL ANESTH.) 4 ML in SODIUM CHL 0.9% 250 ML IV ONE (19:45)
[2024-10-19] MEDS: SOD CHL 0.9%/ KCL 20MEQ 1,000 ML IV SCH (19:55)
[2024-10-19 20:06] LABS: Hematocrit 38.9 % (41.0-53.0); Hemoglobin 12.3 g/dL (13.5-17.5)
[2024-10-19] MEDS: D5W/SOD CHL 0.45% 1,000 ML IV ONE (20:41)
[2024-10-19] MEDS: ONDANSETRON HCL 4 MG/2 ML VIAL IV PRN (21:07)
[2024-10-19] MEDS: SODIUM CHL 0.9% 100 ML IV ONE (21:30)
[2024-10-19] MEDS ORDERED: POTASSIUM CHL 20MEQ/100ML 100 ML IV SCH (23:00)
[2024-10-19] MEDS: POTASSIUM CHL 20MEQ/50ML 50 ML IV SCH (23:06)
--- NOTE | 2024-10-19 23:06 | DVHHP2 ---
History of Present Illness Reason for Visit: Nausea and vomiting History of Present Illness 34-year-old male with a history of diabetes mellitus presents for evaluation of nausea and vomiting. Endorses a two day history of nausea and vomiting. Patient reports being noncompliant with his insulin regimen and has been drinking approximately two pt of vodka every night. Denies abdominal pain. No fever. No cardiac or respiratory complaints. Past Medical History Hypertension, liver disease, seizures, dyslipidemia, diabetes mellitus Past Surgical History Denies Family History Noncontributory Smoke: No ALCOHOL: heavy Drugs: None Lives: with Family Review of Systems Review of Systems Review of systems are currently negative otherwise addressed in HPI. Allergies: Coded Allergies: NO KNOWN ALLERGIES (Unverified , 06/03/22) Medications Current Medications Medications Dose Ordered Sig/Lazaro Route Start Time Stop Time Status Last Admin Dose Admin Potassium Chloride/Sodium Chloride 1,000 ml @ 150 mls/hr Q6H40M IV 10/19/24 15:00 Insulin Human (Reg)/Sodium Chloride 100 ml @ 0.5 mls/hr Q24H IV 10/19/24 15:00 10/19/24 16:12 6 MLS/HR Dextrose 50 ml UD PRN IV 10/19/24 15:00 Diagnostic Test (Pha) 1 strip Q90MIN 10/19/24 15:00 10/19/24 21:00 1 STRIP Insulin Glargine 15 units DAILY SC 10/20/24 10:00 Pantoprazole Sodium 40 mg BID IV 10/19/24 17:00 10/19/24 22:17 40 MG Dextrose 50 ml UD PRN IV 10/19/24 19:00 Ceftriaxone Sodium 50 ml @ 100 mls/hr DAILY@09 IV 10/20/24 09:00 Ondansetron HCl 4 mg Q4HP PRN IV 10/19/24 19:00 10/19/24 21:07 4 MG Morphine Sulfate 2 mg Q4HPRN PRN IV 10/19/24 19:00 Nitroglycerin 0.4 mg Q5MINP PRN SL 10/19/24 19:00 Morphine Sulfate 2 mg Q30M PRN IV 10/19/24 19:00 Potassium Chloride 50 ml @ 25 mls/hr Q2H IV 10/19/24 21:15 10/20/24 01:14 Exam Vital Signs Vital Signs Date Time Temp Pulse Resp B/P (MAP) Pulse Ox O2 Delivery O2 Flow Rate FiO2 10/19/24 22:00 97.8 122 11 150/98 (115) 99 97.8 10/19/24 21:53 Room Air* 0 21 Exam Gen: 34-year-old male in mild distress Skin: Warm, dry, normal color and texture, no rash. HEENT: Normocephalic atraumatic, mucous membranes moist and pink. Neck: Cervical and supraclavicular nodes normal without enlargement, trachea is midline, thyroid gland is normal without masses. Pulmonary: Clear to auscultation and percussion bilaterally. Cardiac: Sinus tachycardia Abdomen: Soft, nontender, nondistended, bowel sounds present all 4 quadrants, no guarding, no rigidity, no organomegaly. Extremities: No cyanosis, clubbing, no edema Neuro: Cranial nerves II through XII grossly intact, normal affect and speech, no focal motor deficits. Labs/Xrays ORDERING PHYSICIAN: GEOFFREY RAJAN PROCEDURE(s): CXRP - CHEST PORTABLE REASON: UPRIGHT ORDER NUMBER(s): [id number], ACCESSION NUMBER(s): [id number] EXAM: XY CHEST PORTABLE Indication: Pain Technique: Single frontal view of the chest was obtained Comparison: XY CHEST XRAY 1 VIEW on DOS: 09/03/24, XY CHEST XRAY 1 VIEW on DOS: 07/14/24, XY CHEST XRAY 1 VIEW on DOS: 07/11/24, XY CHEST PORTABLE on DOS: 11/30/23, XY CHEST PORTABLE on DOS: 07/03/23 FINDINGS: Lines and Tubes: None Lungs: No focal consolidation. Pleura: No effusion. No pneumothorax. Cardiomediastinal contours: Unremarkable Bones: No acute osseous abnormality. IMPRESSION: No acute cardiopulmonary disease. RING PHYSICIAN: GEOFFREY RAJAN PROCEDURE(s): ABPL - CT AB PEL WO CON-NO ORAL OR IV REASON: R/O PANCREATITIS ORDER NUMBER(s): [id number], ACCESSION NUMBER(s): [id number] Exam: CT CT AB PEL WO CON-NO ORAL OR IV History: R/O PANCREATITIS Comparison Study: None available at time of dictation. TECHNIQUE: Multidetector CT of the pelvis without IV contrast. Axial, coronal and sagittal multiplanar reformats were obtained from the axial data set by the technologist. Radiation Dose Information: CT Dose: CTDI volume is 6.31 mGy. Dose-length product is 337.17 mGy*cm FINDINGS: 7 mm right lower lobe ground-glass nodule. Otherwise, the lung bases are clear. Partially visualized heart is unremarkable. Mild hepatomegaly with no focal hepatic lesions. Otherwise, liver, spleen, gallbladder, and adrenal glands unremarkable. There is peripancreatic stranding/ edema. Kidneys, ureters and urinary bladder unremarkable. Prostate is unremarkable. Stomach is unremarkable. Small bowel loops unremarkable. Appendix is unremarkable. Mild wall thickening of the ascending colon, transverse colon and descending colon. Moderate amount of fecal material within the sigmoid with large amount of fecal material within the rectum. No evidence of intraperitoneal free air or free fluid. No evidence of aortic aneurysm. No significant lymphadenopathy. Small fat containing left inguinal hernia. The soft tissues otherwise unremarkable. No destructive osseous lesions noted. Sclerotic focus of the bilateral iliac bones which represent bone islands blastic lesions not excluded. IMPRESSION: Findings consistent with acute pancreatitis. Mild colitis involving the ascending, transverse and descending colon. Mild hepatomegaly. 7 mm right lower lobe ground-glass nodule. Recommend follow-up per Fleischner criteria. Labs Test 10/19/24 19:56 10/19/24 19:46 10/19/24 18:49 10/19/24 15:48 Range/Units Hemoglobin 12.3 L 13.5-17.5 g/dL Hematocrit 38.9 L 41.0-53.0 % POC Glucose 150 H 70-106 mg/dl Sodium Level 138 # 136-145 mmol/L Potassium Level 2.7 L 3.5-5.1 mmol/L Chloride Level 98 # 98-107 mmol/L Carbon Dioxide Level 15 L 20-31 mmol/L Anion Gap 25 H 5-15 Blood Urea Nitrogen 25 H 9-23 mg/dL Creatinine 1.81 H 0.700-1.30 mg/dL Glomerular Filtration Rate Calc 50 >90 mL/min BUN/Creatinine Ratio 13.8 10.0-20.0 Serum Glucose 165 #H 74-106 mg/dL Calcium Level 8.9 8.7-10.4 mg/dL Urine Color Light-yellow Yellow Urine Clarity Clear Clear Urine pH 5.5 5.0-9.0 Urine Specific [place] 1.015 1.001-1.035 Urine Protein 1+ H Negative Urine Ketones 4+ H Negative Urine Blood 1+ H Negative /uL Urine Nitrite Negative Negative Urine Bilirubin Negative Negative Urine Urobilinogen Normal Negative mg/dL Urine Leukocyte Esterase Negative Negative /uL Urine RBC 144 0 - 3 /hpf Urine Microscopic WBC 1 0-3 /HPF Urine Squamous Epithelial Cells None seen <5 /hpf Urine Bacteria None seen None Seen /hpf Urine Glucose 4+ H Normal mg/dL Urine Opiates Screen Neg NEGATIVE Urine Fentanyl Screen Neg NEGATIVE Urine Barbiturates Screen Neg NEGATIVE Urine Phencyclidine Screen Neg NEGATIVE Urine Amphetamines Screen Neg NEGATIVE Urine Benzodiazepines Screen Neg NEGATIVE Urine Cocaine Screen Neg NEGATIVE Urine Cannabinoids Screen Neg NEGATIVE Test 10/19/24 15:44 10/19/24 13:53 10/19/24 13:43 Range/Units Lactic Acid Level 1.5 0.4-2.0 mmol/L Blood Gas Specimen Type Arterial Blood Gas Sample Site Left radial Blood Gas Patient Temperature 37.0 Arterial Blood Date Drawn [id number] Arterial Blood pH 7.425 7.350-7.450 Arterial Blood Partial Pressure CO2 20.7 L 35.0-48.0 mmHg Arterial Blood Partial Pressure O2 93.1 83.0-108.0 mmHg Arterial Blood HCO3 13.3 L 21.0-28.0 mmol/L Arterial Blood Oxygen Saturation 97.2 94.0-98.0 % Arterial Blood Base Excess -8.8 L -2.0-3.0 mmol/L Arterial Blood Oxyhemoglobin 96.1 94.0-98.0 % Arterial Blood Carboxyhemoglobin 0.8 0.5-1.5 % Arterial Blood Methemoglobin 0.3 0.0-1.5 % Baljit Test Yes Blood Gas Total Hemoglobin 13.60 13.5-17.5 g/dL Blood Gas Modality Room air FiO2 % 21.0 White Blood Count 17.6 H 4.4-10.8 10^3/uL Red Blood Count 6.11 H 4.5-5.90 10^6/uL Mean Corpuscular Volume 70.5 L 80.0-100.0 fL Mean Corpuscular Hemoglobin 22.2 L 28.0-32.0 pg Mean Corpuscular Hemoglobin Concent 31.5 L 32.0-36.0 g/dL Red Cell Distribution Width 21.2 H 11.8-14.3 % Platelet Count 176 140-450 10^3/uL Mean Platelet Volume 7.9 6.9-10.8 fL Neutrophils (%) (Auto) 92.6 H 37.0-80.0 % Lymphocytes (%) (Auto) 1.6 L 10.0-50.0 % Monocytes (%) (Auto) 5.5 0.0-12.0 % Eosinophils (%) (Auto) 0.0 0.0-7.0 % Basophils (%) (Auto) 0.3 0.0-2.0 % Neutrophils # (Auto) 16.3 H 1.6-8.6 10 ^3/uL Lymphocytes # (Auto) 0.3 L 0.4-5.4 10 ^3/uL Monocytes # (Auto) 1.0 0-1.3 10 ^3/uL Eosinophils # (Auto) 0 0-0.8 10 ^3/uL Basophils # (Auto) 0 0-0.2 10 ^3/uL Nucleated Red Blood Cells 0.1 % Serum Osmolality 323 H 278-298 mOsm/kg Phosphorus Level 3.2 2.4-5.1 mg/dL Magnesium Level 2.4 1.6-2.6 mg/dL Total Bilirubin 0.8 0.2-1.0 mg/dL Aspartate Amino Transferase (AST) 14 13-40 U/L Alanine Aminotransferase (ALT) 13 7-40 U/L Alkaline Phosphatase 135 H 46-116 U/L Total Protein 8.9 H 5.7-8.2 g/dL Albumin 5.5 H 3.2-4.8 g/dL Lipase 1013 H 12-53 U/L Beta-Hydroxybutyric Acid > 4.500 H < 0.4 mmol/L Plasma/Serum Blood Alcohol 3.2 <10 mg/dL Assessment/Plan Assessment/Plan Assessment Diabetic ketoacidosis Alcoholic pancreatitis Leukocytosis,? Reactive Plan Admit the patient to ICU to the hospitalist DKA protocol CT abdomen pending Continue treatment per orders Total critical care time excluding procedures performed this 55 minutes. Plan discussed with: Patient My Orders Orders - BUCKY QUIGLEY AGACNP Procedure Category Date Status Time Dextrose 50% Syringe PHA 10/19/24 In Process 19:00 Basic Metabolic Panel LAB 10/20/24 Verified 00:59 Basic Metabolic Panel LAB 10/20/24 Verified 06:59 Basic Metabolic Panel LAB 10/20/24 Verified 12:59 Ceftriaxone 1gm/50ml PHA 10/20/24 In Process D5w (Rocephin) 09:00 Admit ADMIT 10/19/24 Transmitted 18:59 Ondansetron Hcl PHA 10/19/24 In Process (Zofran) 19:00 Complete Blood Count LAB 10/20/24 Verified 04:00 Condition: Critical JAYSHREE 10/19/24 In Process 18:59 Bedrest With Bathroom JAYSHREE 10/19/24 In Process Privileg 18:59 Morphine Sulfate PHA 10/19/24 In Process Injection 19:00 Nitroglycerin PHA 10/19/24 In Process Sublingual (Ntrostat 19:00 Morphine Sulfate PHA 10/19/24 In Process Injection 19:00 Stat Ekg For Chest JAYSHREE 10/19/24 In Process Pain 18:59 Notify Md Of Changes JAYSHREE 10/19/24 In Process From Base 18:59 Orthodontic Treatment Coordinator For JAYSHREE 10/19/24 In Process 24 Hours 18:59 Emergency Dysrhythmia JAYSHREE 10/19/24 In Process Protocol 18:59 Rhythm Strips Once JAYSHREE 10/19/24 In Process Every Shift 18:59 Oxygen By Nasal RT 10/19/24 Transmitted Cannula 18:59 Mrsa Screen JENI 10/19/24 In Process 22:52 Date of Service: Oct 19, 2024 Billing Provider: BUCKY QUIGLEY Common Visit Codes: [id number] INP/OBS CARE (HIGH) BUCKY QUIGLEY Oct 19, 2024 23:06
[2024-10-19] MEDS: metroNIDAZOLE 500MG/100ML 100 ML IV SCH (23:30)
[2024-10-20] VITALS (54 sets, daily range): BP systolic 127–176; BP diastolic 68–115; PULSE 89–133; RESP 10–20; TEMP 97.9–98.6; O2SAT 95–100
[2024-10-20 01:35] LABS: Chloride 102 mmol/L (98-107); Sodium 139 mmol/L (136-145)
[2024-10-20 01:36] LABS: Anion Gap 16 (5-15); Carbon Dioxide 21 mmol/L (20-31)
[2024-10-20 01:41] LABS: BUN/Creatinine Ratio 19.7 (10.0-20.0)
[2024-10-20 01:49] LABS: Blood Urea Nitrogen 29 mg/dL (9-23); Glucose 195 mg/dL (74-106)
[2024-10-20 05:10] LABS: Basophils # (auto) 0 10 ^3/uL (0-0.2); Eosinophils # (auto) 0 10 ^3/uL (0-0.8); Lymphocytes # (auto) 0.4 10 ^3/uL (0.4-5.4); Mean Corpuscular Hemoglobin 22.1 pg (28.0-32.0); Monocytes % (auto) 4.3 % (0.0-12.0)
[2024-10-20 05:13] LABS: Basophils % (auto) 0.1 % (0.0-2.0); Eosinophils % (auto) 0.1 % (0.0-7.0); Hematocrit 35.2 % (41.0-53.0); Hemoglobin 11.3 g/dL (13.5-17.5); Lymphocytes % (auto) 2.7 % (10.0-50.0); Mean Corpuscular Hgb Conc. 32.1 g/dL (32.0-36.0); Mean Corpuscular Volume 68.9 fL (80.0-100.0); Monocytes # (auto) 0.7 10 ^3/uL (0-1.3); Neutrophils # (auto) 14.2 10 ^3/uL (1.6-8.6); Neutrophils % (auto) 92.8 % (37.0-80.0); Platelet Count (auto) 131 10^3/uL (140-450); Red Blood Cells 5.12 10^6/uL (4.5-5.90); White Blood Cell 15.3 10^3/uL (4.4-10.8)
[2024-10-20 05:22] LABS: Anion Gap 14 (5-15); Carbon Dioxide 22 mmol/L (20-31); Chloride 103 mmol/L (98-107); Sodium 139 mmol/L (136-145)
[2024-10-20 05:24] LABS: Calcium 9.3 mg/dL (8.7-10.4)
[2024-10-20 05:26] LABS: Potassium 2.9 mmol/L (3.5-5.1)
[2024-10-20 05:29] LABS: BUN/Creatinine Ratio 22.2 (10.0-20.0)
[2024-10-20 05:30] LABS: Blood Urea Nitrogen 28 mg/dL (9-23); Glucose 145 mg/dL (74-106)
[2024-10-20] MEDS: SODIUM CHL 0.9% 100 ML IV SCH (06:34)
[2024-10-20] MEDS: POTASSIUM CHL 20MEQ/50ML 50 ML IV SCH (06:34)
[2024-10-20] MEDS: SODIUM CHLORIDE 0.9% 1,000 ML IV SCH (06:34)
[2024-10-20] MEDS ORDERED: SODIUM CHLORIDE 0.9% 1,000 ML IV ONE (06:45)
[2024-10-20] MEDS: PANTOPRAZOLE 40 MG/10 ML VIAL INJ IV ONE (06:59)
--- NOTE | 2024-10-20 07:57 | ECG ---
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
[2024-10-20] MEDS: ACCU-CHEK COMFORT CURVE STRIP VI SCH ×3 (08:21→20:07)
[2024-10-20] MEDS: SODIUM CHLORIDE 0.9% 500 ML IV ONE ×2 (08:22→10:16)
[2024-10-20] MEDS ORDERED: cefTRIAXone 1GM/50ML D5W 50 ML IV SCH (09:00)
[2024-10-20] MEDS: cefTRIAXone 1GM/50ML D5W 50 ML IV SCH (09:10)
[2024-10-20] MEDS: INSULIN LANTUS (GLARGINE) 1 /0.01ml (100units/ml) SC SCH (10:21)
[2024-10-20 10:31] LABS: Chloride 105 mmol/L (98-107); Potassium 4.3 mmol/L (3.5-5.1); Sodium 139 mmol/L (136-145)
[2024-10-20 10:32] LABS: Anion Gap 19 (5-15)
[2024-10-20 10:34] LABS: Calcium 8.7 mg/dL (8.7-10.4); Carbon Dioxide 15 mmol/L (20-31)
[2024-10-20 10:37] LABS: BUN/Creatinine Ratio 22.4 (10.0-20.0)
[2024-10-20 10:40] LABS: Blood Urea Nitrogen 26 mg/dL (9-23); Glucose 292 mg/dL (74-106)
[2024-10-20 13:13] LABS: Potassium 4.2 mmol/L (3.5-5.1); Sodium 140 mmol/L (136-145)
[2024-10-20 13:14] LABS: Anion Gap 21 (5-15)
[2024-10-20 13:15] LABS: Calcium 8.9 mg/dL (8.7-10.4)
[2024-10-20 13:19] LABS: BUN/Creatinine Ratio 25.4 (10.0-20.0)
[2024-10-20 13:22] LABS: Blood Urea Nitrogen 30 mg/dL (9-23); Carbon Dioxide 12 mmol/L (20-31); Chloride 107 mmol/L (98-107); Glucose 311 mg/dL (74-106)
--- NOTE | 2024-10-20 13:46 | DVHPN2 ---
Reviewed: Care Plan, H&P, Labs, Medications, Previous Orders, Radiology Changes from previous H/P or p: No Changes General: Per HPI Objective Vitals Vital Signs Date Time Temp Pulse Resp B/P (MAP) Pulse Ox O2 Delivery O2 Flow Rate FiO2 10/20/24 12:00 107 10/20/24 11:30 14 150/98 (115) 100 10/20/24 08:00 Room Air* 0 21 10/20/24 08:00 98.6 98.6 Intake/Output Intake and Output 10/20/24 06:59 Intake Total 1225 ml Output Total 700 ml Balance 525 ml Intake Oral 150 ml IV Total 1075 ml Output Urine Total 500 ml Emesis 200 ml Medications Current Medications Medications Dose Ordered Sig/Lazaro Route Start Time Stop Time Status Last Admin Dose Admin Potassium Chloride/Sodium Chloride 1,000 ml @ 150 mls/hr Q6H40M IV 10/19/24 15:00 Insulin Glargine 15 units DAILY SC 10/20/24 10:00 10/20/24 10:21 15 UNITS Pantoprazole Sodium 40 mg BID IV 10/19/24 17:00 10/20/24 10:19 40 MG Dextrose 50 ml UD PRN IV 10/19/24 19:00 Ceftriaxone Sodium 50 ml @ 100 mls/hr DAILY@09 IV 10/20/24 09:00 10/20/24 09:10 100 MLS/HR Ondansetron HCl 4 mg Q4HP PRN IV 10/19/24 19:00 10/20/24 04:50 4 MG Morphine Sulfate 2 mg Q4HPRN PRN IV 10/19/24 19:00 Nitroglycerin 0.4 mg Q5MINP PRN SL 10/19/24 19:00 Morphine Sulfate 2 mg Q30M PRN IV 10/19/24 19:00 Metronidazole 100 ml @ 100 mls/hr Q8HR IV 10/19/24 23:30 10/20/24 05:57 100 MLS/HR Diagnostic Test (Pha) 1 strip Q2HR 10/20/24 08:00 10/20/24 12:00 1 STRIP Potassium Chloride 50 ml @ 25 mls/hr Q2H IV 10/20/24 06:30 10/20/24 14:29 10/20/24 12:37 25 MLS/HR Laboratory Results Laboratory Tests 10/20/24 04:40 10/20/24 12:46 Chemistry Test 10/19/24 18:49 10/20/24 01:10 10/20/24 04:40 10/20/24 09:50 Calcium Level 8.9 mg/dL (8.7-10.4) 9.0 mg/dL (8.7-10.4) 9.3 mg/dL (8.7-10.4) 8.7 mg/dL (8.7-10.4) Test 10/20/24 12:46 Calcium Level 8.9 mg/dL (8.7-10.4) Urinalysis Test 10/19/24 15:48 Urine Color Light-yellow (Yellow) Urine Clarity Clear (Clear) Urine pH 5.5 (5.0-9.0) Urine Specific [place] 1.015 (1.001-1.035) Urine Protein 1+ (Negative) H Urine Ketones 4+ (Negative) H Urine Blood 1+ /uL (Negative) H Urine Nitrite Negative (Negative) Urine Bilirubin Negative (Negative) Urine Urobilinogen Normal mg/dL (Negative) Urine Leukocyte Esterase Negative /uL (Negative) Urine RBC 144 /hpf (0 - 3) Urine Microscopic WBC 1 /HPF (0-3) Urine Squamous Epithelial Cells None seen /hpf (<5) Urine Bacteria None seen /hpf (None Seen) Urine Glucose 4+ mg/dL (Normal) H Blood Gas Results Test 10/19/24 13:53 Arterial Blood pH 7.425 (7.350-7.450) FiO2 % 21.0 Assessment/Plan Assessment/Plan 34-year-old male with a history of diabetes mellitus presents for evaluation of nausea and vomiting. Endorses a two day history of nausea and vomiting. Patient reports being noncompliant with his insulin regimen and has been drinking approximately two pt of vodka every night. Denies abdominal pain. No fever. No cardiac or respiratory complaints. Diabetic ketoacidosis Alcoholic pancreatitis Leukocytosis,? Reactive 10/20/2024 Admit the patient to ICU to the hospitalist DKA protocol CT abdomen pending Continue treatment per orders Total critical care time excluding procedures performed this 55 minutes. Plan discussed with: Patient My Orders Orders - DAQUAN NEFF DO Procedure Category Date Status Time Full Liq Diet DIET 10/20/24 Transmitted Dinner Ac Moderate Insulin JAYSHREE 10/20/24 In Process Scale (Not 13:41 Basic Metabolic Panel LAB 10/20/24 Transmitted 13:41 Date of Service: Oct 20, 2024 Billing Provider: DAQUAN NEFF DO Common Visit Codes: [id number] INP/OBS CARE(HIGH) DAQUAN NEFF DO Oct 20, 2024 13:46
[2024-10-20] MEDS ORDERED: DEXTROSE (50%) 50ML SYRG IV PRN (14:00)
[2024-10-20] MEDS: InsuLIN REG 1unit/0.01ml Soln (100units/ml) SC SCH (14:15)
[2024-10-20] MEDS ORDERED: ACCU-CHEK COMFORT CURVE STRIP VI SCH (16:00)
[2024-10-20] MEDS: LORazepam 2MG/ML-1ML VIAL IV PRN (16:17)
[2024-10-20 17:23] LABS: Potassium 3.5 mmol/L (3.5-5.1); Sodium 142 mmol/L (136-145)
[2024-10-20 17:29] LABS: BUN/Creatinine Ratio 24.1 (10.0-20.0)
[2024-10-20 18:11] LABS: Blood Urea Nitrogen 27 mg/dL (9-23); Carbon Dioxide 15 mmol/L (20-31); Glucose 203 mg/dL (74-106)
[2024-10-20 18:12] LABS: Anion Gap 17 (5-15); Chloride 110 mmol/L (98-107)
--- NOTE | 2024-10-20 20:12 | DVHINCON2 ---
Date of service: Oct 20, [address] Mosley Reason for Consultation Abdominal pain GI bleed pancreatitis diabetes History of Present Illness This 34-year-old man presented to the emergency room with complaints of abdominal pain patient is on patient has history of diabetes with diabetic ketoacidosis Patient also has got atrial fibrillation is also on apixaban He takes about 3-4 vodkas per night with a history of moderate heavy drinking Patient had severe nausea vomiting of bile stained material which also had some mild hematemesis and hence the reason for GI consult Patient was also found to have high amylase and lipase levels and a CT scan finding consistent with severe acute pancreatitis There was also some evidence of mild colitis possibly secondary to the mild ileus and pancreatitis GI consult is for pancreatitis as well as for the GI Past Medical History History of alcoholism and admissions for diabetes ketoacidosis in the past Past Surgical History None Family History: Asthma G8 MOTHER FH: cancer G8 MOTHER Hypercholesterolemia G8 MOTHER Hypertension G8 MOTHER Family History Family history of heart problems and colon cancer in the grandmother on the maternal side Social History History of moderately heavy drinking no drug abuse Allergies: Coded Allergies: NO KNOWN ALLERGIES (Unverified , 06/03/22) Home Meds Active Scripts Ondansetron HCl (Ondansetron) 4 Mg Tab, 4 MG PO BID PRN for 30 Days, #60 TAB Prov:MILLY CORRAL 09/06/24 Pantoprazole Sodium Sesquihydr (Pantoprazole Sodium) 40 Mg Tab, 40 MG PO DAILY f or 30 Days, #30 TAB Prov:MILLY CORRAL 09/06/24 Apixaban Base (ELIQUIS) 5 Mg Tab, 5 MG PO BID for 30 Days, #60 TAB Prov:MILLY CORRAL 09/06/24 Insulin Glargine (Lantus) 100 Unit/Ml Inj, 28 UNITS SC HS for 30 Days, #30 INJ Prov:MILLY CORRAL 09/06/24 Sucralfate (CARAFATE SUSP) 1 Gm/10 Ml Ss, 1 GM GT QID@0600,1130,1700,2200 for 30 Days, #120 ML Prov:MILLY CORRAL 09/06/24 Metoprolol Succinate (Toprol Xl) 50 Mg Tab, 25 MG PO DAILY for 30 Days, #15 TAB Prov:MILLY CORRAL RESIDENT 09/06/24 Flecainide Acetate (TAMBOCOR TABLET) 50 Mg Tb, 50 MG PO Q12HR for 30 Days, #60 TAB Prov:MILLY CORRAL RESIDENT 09/06/24 Pantoprazole Sodium Sesquihydr (Pantoprazole Sodium) 40 Mg Tab, 40 MG PO DAILY@0600 for 30 Days, #30 TAB Prov:RIZWANA RODRIGUEZ RESIDENT 12/03/23 Insulin Aspart (Insulin Aspart Flexpen) 100 Unit/Ml Inj, 100 UNIT SC ACHS for 60 Days, #3 INJ Blood sugar 150 to 250: 2 units Blood sugar 251 to 350: 4 units Blood sugar 351 to 400: 6 units Blood sugar 401 and above: 8 units and go to emergency room Prov:COREEN VILLALTA MOVABLE [employer] INSTALLER 07/05/23 Insulin Regular (Human) (Novolin R) 100 Unit/Ml Inj, 1-15 UNITS SC Q6HPRN PRN for 30 Days, #5 INJ 0 Refills take 1-15 units Q6hr ACHS per sliding scale Prov:VERENA BAUTISTA MD 11/07/21 Atorvastatin Calcium (Lipitor) 20 Mg Tab, 1 TAB PO DAILY, #30 TAB Prov:VERENA BAUTISTA MD 11/07/21 Current Medications Current Medications Medications (Trade) Dose Ordered Sig/Lazaro Route PRN Reason Start Time Stop Time Status Last Admin Sodium Chloride 1,000 ml @ 150 mls/hr Q6H40M IV 10/19/24 21:00 10/19/24 15:07 DC Insulin Glargine (Lantus) 15 units DAILY SC 10/20/24 10:00 10/20/24 13:45 DC 10/20/24 10:21 Ceftriaxone Sodium 50 ml @ 100 mls/hr DAILY@09 IV 10/20/24 09:00 10/20/24 09:10 Potassium Chloride 50 ml @ 25 mls/hr Q2H IV 10/19/24 21:15 10/20/24 01:14 DC 10/20/24 00:36 Potassium Chloride 100 ml @ 50 mls/hr Q2H IV 10/19/24 23:00 10/20/24 06:20 DC Ceftriaxone Sodium 50 ml @ 100 mls/hr DAILY@09 IV 10/20/24 09:00 10/19/24 23:08 DC Metronidazole 100 ml @ 100 mls/hr Q8HR IV 10/19/24 23:30 10/20/24 14:06 Diagnostic Test (Pha) (Accu-Chek Comfort Curve T) 1 strip Q2HR 10/20/24 08:00 10/20/24 14:54 DC 10/20/24 14:00 Potassium Chloride 50 ml @ 25 mls/hr Q2H IV 10/20/24 06:30 10/20/24 14:29 DC 10/20/24 12:37 Sodium Chloride 1,000 ml @ 100 mls/hr Q10H IV 10/20/24 06:15 10/20/24 08:15 DC 10/20/24 06:34 Sodium Chloride 100 ml @ 50 mls/hr Q2H IV 10/20/24 06:30 10/20/24 07:21 DC 10/20/24 06:34 Diagnostic Test (Pha) (Accu-Chek Comfort Curve T) 1 strip IQ4HR 10/20/24 16:00 10/20/24 14:59 DC Insulin Human Regular (InsuLIN R) IQ4HR SC 10/20/24 16:00 10/20/24 16:15 Dextrose 50 ml UD PRN IV Blood Sugar LESS THAN 60 10/20/24 14:00 Lorazepam (Ativan Inj) 1 mg Q2HP PRN IV ALCOHOL WITHDRAWAL SYMPTOMS 10/20/24 15:00 10/20/24 16:17 Diagnostic Test (Pha) (Accu-Chek Comfort Curve T) 1 strip Q4HR 10/20/24 16:00 10/20/24 17:11 DC 10/20/24 16:11 Diagnostic Test (Pha) (Accu-Chek Comfort Curve T) 1 strip IQ4HR 10/20/24 20:00 Review of Systems Noncontributory Vital Signs Vital Signs Date Time Temp Pulse Resp B/P (MAP) Pulse Ox O2 Delivery O2 Flow Rate FiO2 10/20/24 18:00 126 15 141/106 (118) 98 10/20/24 16:00 98.4 98.4 10/20/24 08:00 Room Air* 0 21 Physical Exam Moderate built and nourished male in no acute distress HEENT examination no pallor no icterus Lungs clear Cardiovascular unremarkable Abdomen is soft mild tenderness in the epigastrium no rigidity no guarding no distention bowel sounds normal Extremities no edema no varicosities no clubbing Neuro grossly intact Labs/Diagnostic Data Labs Test 10/20/24 16:55 10/20/24 16:00 10/20/24 04:40 10/19/24 15:48 Range/Units Sodium Level 142 136-145 mmol/L Potassium Level 3.5 3.5-5.1 mmol/L Chloride Level 110 H 98-107 mmol/L Carbon Dioxide Level 15 L 20-31 mmol/L Anion Gap 17 H 5-15 Blood Urea Nitrogen 27 H 9-23 mg/dL Creatinine 1.12 0.700-1.30 mg/dL Glomerular Filtration Rate Calc 88 >90 mL/min BUN/Creatinine Ratio 24.1 H 10.0-20.0 Serum Glucose 203 #H 74-106 mg/dL Calcium Level 9.0 8.7-10.4 mg/dL POC Glucose 242 H 70-106 mg/dl White Blood Count 15.3 H 4.4-10.8 10^3/uL Red Blood Count 5.12 4.5-5.90 10^6/uL Hemoglobin 11.3 L 13.5-17.5 g/dL Hematocrit 35.2 L 41.0-53.0 % Mean Corpuscular Volume 68.9 L 80.0-100.0 fL Mean Corpuscular Hemoglobin 22.1 L 28.0-32.0 pg Mean Corpuscular Hemoglobin Concent 32.1 32.0-36.0 g/dL Red Cell Distribution Width 21.0 H 11.8-14.3 % Platelet Count 131 L 140-450 10^3/uL Mean Platelet Volume 7.9 6.9-10.8 fL Neutrophils (%) (Auto) 92.8 H 37.0-80.0 % Lymphocytes (%) (Auto) 2.7 L 10.0-50.0 % Monocytes (%) (Auto) 4.3 0.0-12.0 % Eosinophils (%) (Auto) 0.1 0.0-7.0 % Basophils (%) (Auto) 0.1 0.0-2.0 % Neutrophils # (Auto) 14.2 H 1.6-8.6 10 ^3/uL Lymphocytes # (Auto) 0.4 0.4-5.4 10 ^3/uL Monocytes # (Auto) 0.7 0-1.3 10 ^3/uL Eosinophils # (Auto) 0 0-0.8 10 ^3/uL Basophils # (Auto) 0 0-0.2 10 ^3/uL Nucleated Red Blood Cells 0.0 % Urine Color Light-yellow Yellow Urine Clarity Clear Clear Urine pH 5.5 5.0-9.0 Urine Specific [place] 1.015 1.001-1.035 Urine Protein 1+ H Negative Urine Ketones 4+ H Negative Urine Blood 1+ H Negative /uL Urine Nitrite Negative Negative Urine Bilirubin Negative Negative Urine Urobilinogen Normal Negative mg/dL Urine Leukocyte Esterase Negative Negative /uL Urine RBC 144 0 - 3 /hpf Urine Microscopic WBC 1 0-3 /HPF Urine Squamous Epithelial Cells None seen <5 /hpf Urine Bacteria None seen None Seen /hpf Urine Glucose 4+ H Normal mg/dL Urine Opiates Screen Neg NEGATIVE Urine Fentanyl Screen Neg NEGATIVE Urine Barbiturates Screen Neg NEGATIVE Urine Phencyclidine Screen Neg NEGATIVE Urine Amphetamines Screen Neg NEGATIVE Urine Benzodiazepines Screen Neg NEGATIVE Urine Cocaine Screen Neg NEGATIVE Urine Cannabinoids Screen Neg NEGATIVE Test 10/19/24 15:44 10/19/24 13:53 10/19/24 13:43 Range/Units Lactic Acid Level 1.5 0.4-2.0 mmol/L Blood Gas Specimen Type Arterial Blood Gas Sample Site Left radial Blood Gas Patient Temperature 37.0 Arterial Blood Date Drawn [id number] Arterial Blood pH 7.425 7.350-7.450 Arterial Blood Partial Pressure CO2 20.7 L 35.0-48.0 mmHg Arterial Blood Partial Pressure O2 93.1 83.0-108.0 mmHg Arterial Blood HCO3 13.3 L 21.0-28.0 mmol/L Arterial Blood Oxygen Saturation 97.2 94.0-98.0 % Arterial Blood Base Excess -8.8 L -2.0-3.0 mmol/L Arterial Blood Oxyhemoglobin 96.1 94.0-98.0 % Arterial Blood Carboxyhemoglobin 0.8 0.5-1.5 % Arterial Blood Methemoglobin 0.3 0.0-1.5 % Baljit Test Yes Blood Gas Total Hemoglobin 13.60 13.5-17.5 g/dL Blood Gas Modality Room air FiO2 % 21.0 Serum Osmolality 323 H 278-298 mOsm/kg Phosphorus Level 3.2 2.4-5.1 mg/dL Magnesium Level 2.4 1.6-2.6 mg/dL Total Bilirubin 0.8 0.2-1.0 mg/dL Aspartate Amino Transferase (AST) 14 13-40 U/L Alanine Aminotransferase (ALT) 13 7-40 U/L Alkaline Phosphatase 135 H 46-116 U/L Total Protein 8.9 H 5.7-8.2 g/dL Albumin 5.5 H 3.2-4.8 g/dL Lipase 1013 H 12-53 U/L Beta-Hydroxybutyric Acid > 4.500 H < 0.4 mmol/L Plasma/Serum Blood Alcohol 3.2 <10 mg/dL Microbiology Date/Time Source Procedure Growth Status 10/19/24 22:52 Nose MRSA Screen - Final Complete 10/19/24 15:43 Blood Blood Culture - Preliminary NO GROWTH AFTER 24 HOURS OF INCUBATION. Resulted Assessment 34-year-old man with complaints of abdominal pain weakness tiredness he nausea vomiting and even some hematemesis Found to have pancreatitis with CT scan as well as by labs lipase being more than 1000 Has got atrial fibrillation is on Eliquis No gross GI bleeding at this time Hemoglobin was 13 white count is 17.6 platelet count is normal Lipase was 1013 alk phos is 135 ALT AST are normal Clinical impression acute pancreatitis possible acute gastritis with a history of moderate alcoholism and diabetes with diabetic ketoacidosis No gross GI bleeding patient is on anticoagulants Possible bleeding from acute gastritis secondary to possible alcoholism and diabetes Plan/Recommendation Recommend to get the diabetes under control Watch closely for any complications of pancreatitis PPIs Protonix iv NPO and slowly advance to clear liquids so lipase and amylase are better as well as the abdominal symptoms as well as bleeding is better We will recommend to follow the hemoglobin closely If bleeding persists may need further workup including stoppage of the anticoagulants and endoscopic evaluation Thank you Dr. Leggett Plan discussed with: Patient VANDANA LEGGETT MD Oct 20, 2024 20:12
[2024-10-21] VITALS (18 sets, daily range): BP systolic 129–164; BP diastolic 81–104; PULSE 68–115; RESP 10–19; TEMP 98.1–98.8; O2SAT 97–100
[2024-10-21 05:40] LABS: Basophils # (auto) 0 10 ^3/uL (0-0.2); Eosinophils # (auto) 0 10 ^3/uL (0-0.8); Lymphocytes # (auto) 0.4 10 ^3/uL (0.4-5.4); Mean Corpuscular Volume 71.1 fL (80.0-100.0)
[2024-10-21 05:47] LABS: Basophils % (auto) 0.1 % (0.0-2.0); Hematocrit 29.1 % (41.0-53.0); Hemoglobin 9.5 g/dL (13.5-17.5); Lymphocytes % (auto) 6.6 % (10.0-50.0); Mean Corpuscular Hemoglobin 23.3 pg (28.0-32.0); Mean Corpuscular Hgb Conc. 32.7 g/dL (32.0-36.0); Monocytes # (auto) 0.3 10 ^3/uL (0-1.3); Monocytes % (auto) 5.6 % (0.0-12.0); Neutrophils # (auto) 5.3 10 ^3/uL (1.6-8.6); Neutrophils % (auto) 87.7 % (37.0-80.0); Platelet Count (auto) 86 10^3/uL (140-450); Red Blood Cells 4.09 10^6/uL (4.5-5.90)
[2024-10-21 05:54] LABS: Sodium 143 mmol/L (136-145)
[2024-10-21 05:55] LABS: Anion Gap 12 (5-15); Calcium 8.8 mg/dL (8.7-10.4); Carbon Dioxide 20 mmol/L (20-31)
[2024-10-21 06:00] LABS: BUN/Creatinine Ratio 20.5 (10.0-20.0); Blood Urea Nitrogen 17 mg/dL (9-23)
[2024-10-21 06:07] LABS: Chloride 111 mmol/L (98-107); Potassium 3.2 mmol/L (3.5-5.1)
[2024-10-21 06:08] LABS: Glucose 153 mg/dL (74-106)
[2024-10-21 06:55] LABS: Red Cell Distribution Width 20.5 % (11.8-14.3)
[2024-10-21] MEDS: POTASSIUM CHLORIDE 40 MEQ, LIDOCAINE 1% (LOCAL ANESTH.) 4 ML in SODIUM CHL 0.9% 250 ML IV ONE (08:57)
--- NOTE | 2024-10-21 15:28 | DVHPN2 ---
Reviewed: Care Plan, H&P, Labs, Medications, Previous Orders, Radiology Changes from previous H/P or p: No Changes General: Per HPI Objective Vitals Vital Signs Date Time Temp Pulse Resp B/P (MAP) Pulse Ox O2 Delivery O2 Flow Rate FiO2 10/21/24 13:10 98.1 80 17 146/100 (115) 100 98.1 10/21/24 08:00 Room Air* 0 21 Intake/Output Intake and Output 10/21/24 07:00 Intake Total 5920 ml Output Total 6100 ml Balance -180 ml Intake Oral 1670 ml IV Total 4250 ml Output Urine Total 5450 ml Emesis 650 ml # Voids 4 General Appearance: Alert, Oriented X3, Cooperative, No acute distress Cardiovascular: Regular rate, Normal S1, Normal S2 Medications Current Medications Medications Dose Ordered Sig/Lazaro Route Start Time Stop Time Status Last Admin Dose Admin Potassium Chloride/Sodium Chloride 1,000 ml @ 150 mls/hr Q6H40M IV 10/19/24 15:00 10/21/24 10:44 150 MLS/HR Pantoprazole Sodium 40 mg BID IV 10/19/24 17:00 10/21/24 10:35 40 MG Ceftriaxone Sodium 50 ml @ 100 mls/hr DAILY@09 IV 10/20/24 09:00 10/21/24 10:40 100 MLS/HR Ondansetron HCl 4 mg Q4HP PRN IV 10/19/24 19:00 10/21/24 12:58 4 MG Morphine Sulfate 2 mg Q4HPRN PRN IV 10/19/24 19:00 Nitroglycerin 0.4 mg Q5MINP PRN SL 10/19/24 19:00 Morphine Sulfate 2 mg Q30M PRN IV 10/19/24 19:00 Metronidazole 100 ml @ 100 mls/hr Q8HR IV 10/19/24 23:30 10/21/24 05:59 100 MLS/HR Insulin Human Regular IQ4HR SC 10/20/24 16:00 10/21/24 12:29 6 UNITS Dextrose 50 ml UD PRN IV 10/20/24 14:00 Lorazepam 1 mg Q2HP PRN IV 10/20/24 15:00 10/20/24 16:17 1 MG Diagnostic Test (Pha) 1 strip IQ4HR 10/20/24 20:00 10/21/24 12:28 1 STRIP Laboratory Results Laboratory Tests 10/21/24 04:55 Chemistry Test 10/20/24 16:55 10/21/24 04:55 Calcium Level 9.0 mg/dL (8.7-10.4) 8.8 mg/dL (8.7-10.4) Magnesium Level 2.0 mg/dL (1.6-2.6) Urinalysis Test 10/19/24 15:48 Urine Color Light-yellow (Yellow) Urine Clarity Clear (Clear) Urine pH 5.5 (5.0-9.0) Urine Specific [place] 1.015 (1.001-1.035) Urine Protein 1+ (Negative) H Urine Ketones 4+ (Negative) H Urine Blood 1+ /uL (Negative) H Urine Nitrite Negative (Negative) Urine Bilirubin Negative (Negative) Urine Urobilinogen Normal mg/dL (Negative) Urine Leukocyte Esterase Negative /uL (Negative) Urine RBC 144 /hpf (0 - 3) Urine Microscopic WBC 1 /HPF (0-3) Urine Squamous Epithelial Cells None seen /hpf (<5) Urine Bacteria None seen /hpf (None Seen) Urine Glucose 4+ mg/dL (Normal) H Microbiology Microbiology Date/Time Source Procedure Growth Status 10/19/24 22:52 Nose MRSA Screen - Final Complete 10/19/24 15:43 Blood Blood Culture - Preliminary NO GROWTH AFTER 24 HOURS OF INCUBATION. Resulted Labs and/or images reviewed: Labs reviewed by me, Image(s) reviewed by me Assessment/Plan Assessment/Plan 34-year-old male with a history of diabetes mellitus presents for evaluation of nausea and vomiting. Endorses a two day history of nausea and vomiting. Patient reports being noncompliant with his insulin regimen and has been drinking approximately two pt of vodka every night. Denies abdominal pain. No fever. No cardiac or respiratory complaints. Diabetic ketoacidosis Alcoholic pancreatitis Leukocytosis,? Reactive 10/20/2024 Admit the patient to ICU to the hospitalist DKA protocol CT abdomen pending Continue treatment per orders Total critical care time excluding procedures performed this 55 minutes 10/21/2024: improving monitor for another 24 hours Plan discussed with: Other My Orders Orders - DAQUAN NEFF DO Procedure Category Date Status Time Glucose Blood PHA 10/20/24 In Process (Accu-Chek Comfort 20:00 Transfer Orders XFER 10/21/24 Transmitted 11:40 Date of Service: Oct 21, 2024 Billing Provider: DAQUAN NEFF DO Common Visit Codes: [id number] INP/OBS CARE(HIGH) DAQUAN NEFF DO Oct 21, 2024 15:28
[2024-10-21] MEDS: metroNIDAZOLE 500MG/100ML 100 ML IV SCH (17:40)
[2024-10-21] MEDS: MORPHINE SULFATE INJ 2 MG/ml SYRG IV PRN (20:53)
[2024-10-22] VITALS (8 sets, daily range): BP systolic 130–151; BP diastolic 92–98; PULSE 30–116; RESP 16–18; TEMP 97.9–98.6; O2SAT 98–100
--- NOTE | 2024-10-22 19:40 | DVHPN2 ---
Progress Note - Dictate Date Seen: Oct 22, 2024 Medical Necessity Reason Pt with a Central, PICC or Fol: No Subjective Patient is feeling much better now some mild nausea but no vomiting or hematemesis Blood sugar is better controlled With the abdominal fullness but much better no pain vital signs Vital Sign Date Time Temp Pulse Resp B/P (MAP) Pulse Ox O2 Delivery O2 Flow Rate FiO2 10/22/24 17:00 98.6 116 18 130/98 (109) 98 98.6 10/22/24 08:00 Room Air* 0 21 Total Intake and Output 10/21/24 10/21/24 10/22/24 15:00 23:00 07:00 Intake Total 650 ml 400 ml Output Total 118 ml Balance 650 ml -118 ml 400 ml medications Current Medications Medications Dose Ordered Sig/Lazaro Route Start Time Stop Time Status Last Admin Dose Admin Potassium Chloride/Sodium Chloride 1,000 ml @ 150 mls/hr Q6H40M IV 10/19/24 15:00 10/22/24 08:44 150 MLS/HR Pantoprazole Sodium 40 mg BID IV 10/19/24 17:00 10/22/24 08:34 40 MG Ceftriaxone Sodium 50 ml @ 100 mls/hr DAILY@09 IV 10/20/24 09:00 10/22/24 08:35 100 MLS/HR Ondansetron HCl 4 mg Q4HP PRN IV 10/19/24 19:00 10/21/24 12:58 4 MG Morphine Sulfate 2 mg Q4HPRN PRN IV 10/19/24 19:00 10/21/24 20:53 2 MG Nitroglycerin 0.4 mg Q5MINP PRN SL 10/19/24 19:00 Morphine Sulfate 2 mg Q30M PRN IV 10/19/24 19:00 Insulin Human Regular IQ4HR SC 10/20/24 16:00 10/22/24 15:55 6 UNITS Dextrose 50 ml UD PRN IV 10/20/24 14:00 Lorazepam 1 mg Q2HP PRN IV 10/20/24 15:00 10/20/24 16:17 1 MG Diagnostic Test (Pha) 1 strip IQ4HR 10/20/24 20:00 10/22/24 15:53 1 STRIP Metronidazole 100 ml @ 100 mls/hr Q8H IV 10/21/24 18:00 10/22/24 18:01 100 MLS/HR objective Abdomen is soft nontender no masses laboratory and microbiology Laboratory Tests 10/21/24 04:55 Test 10/21/24 04:55 Range/Units Serum Glucose 153 H 74-106 mg/dL Assessment/Plan Patient is doing much better no further bleeding We will increase the feeds and keep the sugar under control better and symptomatic treatment Thank you Dr. Leggett Dietary Evaluation Review Comments: 1. alcohoic rehabilitation, monitor intakes to meet minimum of 75% of his needs 2. CCHO-60 diet Expected Outcomes/Goals: Controlled DM, recovered alcoholic. gradual wt gain Plan discussed with: Patient VANDANA LEGGETT MD Oct 22, 2024 19:40
[2024-10-23] VITALS (9 sets, daily range): BP systolic 124–140; BP diastolic 87–92; PULSE 82–112; RESP 16–18; TEMP 97.1–98.3; O2SAT 99–100
[2024-10-23 06:28] LABS: Anion Gap 10 (5-15); Carbon Dioxide 26 mmol/L (20-31); Chloride 102 mmol/L (98-107); Sodium 138 mmol/L (136-145)
[2024-10-23 06:29] LABS: Calcium 9.2 mg/dL (8.7-10.4)
[2024-10-23 06:34] LABS: BUN/Creatinine Ratio 15.3 (10.0-20.0); Blood Urea Nitrogen 11 mg/dL (9-23)
[2024-10-23 06:49] LABS: Glucose 163 mg/dL (74-106); Potassium 2.8 mmol/L (3.5-5.1)
--- NOTE | 2024-10-23 11:13 | DVHPN2 ---
Reviewed: Care Plan, H&P, Labs, Medications, Previous Orders, Radiology Changes from previous H/P or p: No Changes General: Per HPI Objective Vitals Vital Signs Date Time Temp Pulse Resp B/P (MAP) Pulse Ox O2 Delivery O2 Flow Rate FiO2 10/23/24 09:00 98.3 95 16 140/91 (107) 100 98.3 10/23/24 08:10 Room Air* 0 21 Intake/Output Intake and Output 10/23/24 07:00 Intake Total 2250 ml Balance 2250 ml Intake Oral 1900 ml IV Total 350 ml # Voids 4 General Appearance: Alert, Oriented X3, Cooperative, No acute distress Cardiovascular: Regular rate, Normal S1, Normal S2 Medications Current Medications Medications Dose Ordered Sig/Lazaro Route Start Time Stop Time Status Last Admin Dose Admin Potassium Chloride/Sodium Chloride 1,000 ml @ 150 mls/hr Q6H40M IV 10/19/24 15:00 10/22/24 08:44 150 MLS/HR Pantoprazole Sodium 40 mg BID IV 10/19/24 17:00 10/23/24 10:19 40 MG Ceftriaxone Sodium 50 ml @ 100 mls/hr DAILY@09 IV 10/20/24 09:00 10/23/24 10:19 100 MLS/HR Ondansetron HCl 4 mg Q4HP PRN IV 10/19/24 19:00 10/21/24 12:58 4 MG Morphine Sulfate 2 mg Q4HPRN PRN IV 10/19/24 19:00 10/22/24 22:07 2 MG Nitroglycerin 0.4 mg Q5MINP PRN SL 10/19/24 19:00 Morphine Sulfate 2 mg Q30M PRN IV 10/19/24 19:00 Insulin Human Regular IQ4HR SC 10/20/24 16:00 10/23/24 08:45 6 UNITS Dextrose 50 ml UD PRN IV 10/20/24 14:00 Lorazepam 1 mg Q2HP PRN IV 10/20/24 15:00 10/20/24 16:17 1 MG Diagnostic Test (Pha) 1 strip IQ4HR 10/20/24 20:00 10/23/24 08:45 1 STRIP Metronidazole 100 ml @ 100 mls/hr Q8H IV 10/21/24 18:00 10/23/24 01:40 100 MLS/HR Laboratory Results Laboratory Tests 10/21/24 04:55 10/23/24 05:43 Chemistry Test 10/23/24 05:43 Calcium Level 9.2 mg/dL (8.7-10.4) Urinalysis Test 10/19/24 15:48 Urine Color Light-yellow (Yellow) Urine Clarity Clear (Clear) Urine pH 5.5 (5.0-9.0) Urine Specific [place] 1.015 (1.001-1.035) Urine Protein 1+ (Negative) H Urine Ketones 4+ (Negative) H Urine Blood 1+ /uL (Negative) H Urine Nitrite Negative (Negative) Urine Bilirubin Negative (Negative) Urine Urobilinogen Normal mg/dL (Negative) Urine Leukocyte Esterase Negative /uL (Negative) Urine RBC 144 /hpf (0 - 3) Urine Microscopic WBC 1 /HPF (0-3) Urine Squamous Epithelial Cells None seen /hpf (<5) Urine Bacteria None seen /hpf (None Seen) Urine Glucose 4+ mg/dL (Normal) H Microbiology Microbiology Date/Time Source Procedure Growth Status 10/19/24 22:52 Nose MRSA Screen - Final Complete 10/19/24 15:43 Blood Blood Culture - Preliminary NO GROWTH AFTER 72 HOURS OF INCUBATION. Resulted Assessment/Plan Assessment/Plan 34-year-old male with a history of diabetes mellitus presents for evaluation of nausea and vomiting. Endorses a two day history of nausea and vomiting. Patient reports being noncompliant with his insulin regimen and has been drinking approximately two pt of vodka every night. Denies abdominal pain. No fever. No cardiac or respiratory complaints. Diabetic ketoacidosis Alcoholic pancreatitis Leukocytosis,? Reactive 10/20/2024 Admit the patient to ICU to the hospitalist DKA protocol CT abdomen pending Continue treatment per orders Total critical care time excluding procedures performed this 55 minutes 10/21/2024: improving monitor for another 24 hours 10/22/2024: advance diet as tolerated still has a lot of nausea/vomting Plan discussed with: Patient Date of Service: Oct 22, 2024 Billing Provider: DAQUAN NEFF DO Common Visit Codes: [id number] INP/OBS CARE(HIGH) DAQUAN NEFF DO Oct 23, 2024 11:13
--- NOTE | 2024-10-23 11:14 | DVHPN2 ---
Reviewed: Care Plan, H&P, Labs, Medications, Previous Orders, Radiology Changes from previous H/P or p: No Changes General: Per HPI Objective Vitals Vital Signs Date Time Temp Pulse Resp B/P (MAP) Pulse Ox O2 Delivery O2 Flow Rate FiO2 10/23/24 09:00 98.3 95 16 140/91 (107) 100 98.3 10/23/24 08:10 Room Air* 0 21 Intake/Output Intake and Output 10/23/24 07:00 Intake Total 2250 ml Balance 2250 ml Intake Oral 1900 ml IV Total 350 ml # Voids 4 General Appearance: Alert, Oriented X3, Cooperative, No acute distress Cardiovascular: Regular rate, Normal S1, Normal S2 Medications Current Medications Medications Dose Ordered Sig/Lazaro Route Start Time Stop Time Status Last Admin Dose Admin Potassium Chloride/Sodium Chloride 1,000 ml @ 150 mls/hr Q6H40M IV 10/19/24 15:00 10/22/24 08:44 150 MLS/HR Pantoprazole Sodium 40 mg BID IV 10/19/24 17:00 10/23/24 10:19 40 MG Ceftriaxone Sodium 50 ml @ 100 mls/hr DAILY@09 IV 10/20/24 09:00 10/23/24 10:19 100 MLS/HR Ondansetron HCl 4 mg Q4HP PRN IV 10/19/24 19:00 10/21/24 12:58 4 MG Morphine Sulfate 2 mg Q4HPRN PRN IV 10/19/24 19:00 10/22/24 22:07 2 MG Nitroglycerin 0.4 mg Q5MINP PRN SL 10/19/24 19:00 Morphine Sulfate 2 mg Q30M PRN IV 10/19/24 19:00 Insulin Human Regular IQ4HR SC 10/20/24 16:00 10/23/24 08:45 6 UNITS Dextrose 50 ml UD PRN IV 10/20/24 14:00 Lorazepam 1 mg Q2HP PRN IV 10/20/24 15:00 10/20/24 16:17 1 MG Diagnostic Test (Pha) 1 strip IQ4HR 10/20/24 20:00 10/23/24 08:45 1 STRIP Metronidazole 100 ml @ 100 mls/hr Q8H IV 10/21/24 18:00 10/23/24 01:40 100 MLS/HR Laboratory Results Laboratory Tests 10/21/24 04:55 10/23/24 05:43 Chemistry Test 10/23/24 05:43 Calcium Level 9.2 mg/dL (8.7-10.4) Urinalysis Test 10/19/24 15:48 Urine Color Light-yellow (Yellow) Urine Clarity Clear (Clear) Urine pH 5.5 (5.0-9.0) Urine Specific [place] 1.015 (1.001-1.035) Urine Protein 1+ (Negative) H Urine Ketones 4+ (Negative) H Urine Blood 1+ /uL (Negative) H Urine Nitrite Negative (Negative) Urine Bilirubin Negative (Negative) Urine Urobilinogen Normal mg/dL (Negative) Urine Leukocyte Esterase Negative /uL (Negative) Urine RBC 144 /hpf (0 - 3) Urine Microscopic WBC 1 /HPF (0-3) Urine Squamous Epithelial Cells None seen /hpf (<5) Urine Bacteria None seen /hpf (None Seen) Urine Glucose 4+ mg/dL (Normal) H Microbiology Microbiology Date/Time Source Procedure Growth Status 10/19/24 22:52 Nose MRSA Screen - Final Complete 10/19/24 15:43 Blood Blood Culture - Preliminary NO GROWTH AFTER 72 HOURS OF INCUBATION. Resulted Labs and/or images reviewed: Labs reviewed by me, Image(s) reviewed by me Assessment/Plan Assessment/Plan 34-year-old male with a history of diabetes mellitus presents for evaluation of nausea and vomiting. Endorses a two day history of nausea and vomiting. Patient reports being noncompliant with his insulin regimen and has been drinking approximately two pt of vodka every night. Denies abdominal pain. No fever. No cardiac or respiratory complaints. Diabetic ketoacidosis Alcoholic pancreatitis Leukocytosis,? Reactive 10/20/2024 Admit the patient to ICU to the hospitalist DKA protocol CT abdomen pending Continue treatment per orders Total critical care time excluding procedures performed this 55 minutes 10/21/2024: improving monitor for another 24 hours 10/22/2024: advance diet as tolerated still has a lot of nausea/vomting 10/23/2024: advancing diet Plan discussed with: Patient Date of Service: Oct 23, 2024 Billing Provider: DAQUAN NEFF DO Common Visit Codes: [id number] INP/OBS CARE(HIGH) DAQUAN NEFF DO Oct 23, 2024 11:14
[2024-10-23] MEDS: POTASSIUM CHL 20 Meq TABLET PO ONE (14:17)
[2024-10-24 01:00] VITALS: BP 119/79; PULSE 102; RESP 16; TEMP 98; O2SAT 100
[2024-10-24 05:00] VITALS: BP 120/82; PULSE 84; RESP 16; TEMP 98.4; O2SAT 99
[2024-10-24 06:49] LABS: Anion Gap 8 (5-15); Calcium 8.9 mg/dL (8.7-10.4); Carbon Dioxide 24 mmol/L (20-31); Sodium 140 mmol/L (136-145)
[2024-10-24 06:55] LABS: BUN/Creatinine Ratio 12.7 (10.0-20.0); Blood Urea Nitrogen 10 mg/dL (9-23)
[2024-10-24 06:56] LABS: Chloride 108 mmol/L (98-107); Glucose 203 mg/dL (74-106)
[2024-10-24 08:00] VITALS: PULSE 86; O2SAT 100
[2024-10-24 08:39] VITALS: BP 126/87; PULSE 92; RESP 16; TEMP 98.6; O2SAT 99
[2024-10-24] MEDS ORDERED: MET500T PO (11:39)
--- NOTE | 2024-10-24 11:41 | DVHDS2 ---
Discharge Summary Date of Admission Oct 19, 2024 at 18:59 Date of Discharge: Oct 24, 2024 Labs/Diagnostic Data: Laboratory Results Test 10/24/24 07:53 10/24/24 06:13 10/21/24 04:55 10/19/24 15:48 POC Glucose 185 mg/dl (70-106) Sodium Level 140 mmol/L (136-145) Potassium Level 4.0 mmol/L (3.5-5.1) Chloride Level 108 mmol/L (98-107) Carbon Dioxide Level 24 mmol/L (20-31) Anion Gap 8 (5-15) Blood Urea Nitrogen 10 mg/dL (9-23) Creatinine 0.79 mg/dL (0.700-1.30) Glomerular Filtration Rate Calc 120 mL/min (>90) BUN/Creatinine Ratio 12.7 (10.0-20.0) Serum Glucose 203 mg/dL (74-106) Calcium Level 8.9 mg/dL (8.7-10.4) White Blood Count 6.0 10^3/uL (4.4-10.8) Red Blood Count 4.09 10^6/uL (4.5-5.90) Hemoglobin 9.5 g/dL (13.5-17.5) Hematocrit 29.1 % (41.0-53.0) Mean Corpuscular Volume 71.1 fL (80.0-100.0) Mean Corpuscular Hemoglobin 23.3 pg (28.0-32.0) Mean Corpuscular Hemoglobin Concent 32.7 g/dL (32.0-36.0) Red Cell Distribution Width 20.5 % (11.8-14.3) Platelet Count 86 10^3/uL (140-450) Mean Platelet Volume 7.9 fL (6.9-10.8) Neutrophils (%) (Auto) 87.7 % (37.0-80.0) Lymphocytes (%) (Auto) 6.6 % (10.0-50.0) Monocytes (%) (Auto) 5.6 % (0.0-12.0) Eosinophils (%) (Auto) 0.0 % (0.0-7.0) Basophils (%) (Auto) 0.1 % (0.0-2.0) Neutrophils # (Auto) 5.3 10 ^3/uL (1.6-8.6) Lymphocytes # (Auto) 0.4 10 ^3/uL (0.4-5.4) Monocytes # (Auto) 0.3 10 ^3/uL (0-1.3) Eosinophils # (Auto) 0 10 ^3/uL (0-0.8) Basophils # (Auto) 0 10 ^3/uL (0-0.2) Nucleated Red Blood Cells 0.0 % Magnesium Level 2.0 mg/dL (1.6-2.6) Urine Color Light-yellow (Yellow) Urine Clarity Clear (Clear) Urine pH 5.5 (5.0-9.0) Urine Specific [place] 1.015 (1.001-1.035) Urine Protein 1+ (Negative) Urine Ketones 4+ (Negative) Urine Blood 1+ /uL (Negative) Urine Nitrite Negative (Negative) Urine Bilirubin Negative (Negative) Urine Urobilinogen Normal mg/dL (Negative) Urine Leukocyte Esterase Negative /uL (Negative) Urine RBC 144 /hpf (0 - 3) Urine Microscopic WBC 1 /HPF (0-3) Urine Squamous Epithelial Cells None seen /hpf (<5) Urine Bacteria None seen /hpf (None Seen) Urine Glucose 4+ mg/dL (Normal) Urine Opiates Screen Neg (NEGATIVE) Urine Fentanyl Screen Neg (NEGATIVE) Urine Barbiturates Screen Neg (NEGATIVE) Urine Phencyclidine Screen Neg (NEGATIVE) Urine Amphetamines Screen Neg (NEGATIVE) Urine Benzodiazepines Screen Neg (NEGATIVE) Urine Cocaine Screen Neg (NEGATIVE) Urine Cannabinoids Screen Neg (NEGATIVE) Test 10/19/24 15:44 10/19/24 13:53 10/19/24 13:43 Lactic Acid Level 1.5 mmol/L (0.4-2.0) Blood Gas Specimen Type Arterial Blood Gas Sample Site Left radial Blood Gas Patient Temperature 37.0 Arterial Blood Date Drawn [id number] Arterial Blood pH 7.425 (7.350-7.450) Arterial Blood Partial Pressure CO2 20.7 mmHg (35.0-48.0) Arterial Blood Partial Pressure O2 93.1 mmHg (83.0-108.0) Arterial Blood HCO3 13.3 mmol/L (21.0-28.0) Arterial Blood Oxygen Saturation 97.2 % (94.0-98.0) Arterial Blood Base Excess -8.8 mmol/L (-2.0-3.0) Arterial Blood Oxyhemoglobin 96.1 % (94.0-98.0) Arterial Blood Carboxyhemoglobin 0.8 % (0.5-1.5) Arterial Blood Methemoglobin 0.3 % (0.0-1.5) Baljit Test Yes Blood Gas Total Hemoglobin 13.60 g/dL (13.5-17.5) Blood Gas Modality Room air FiO2 % 21.0 Serum Osmolality 323 mOsm/kg (278-298) Phosphorus Level 3.2 mg/dL (2.4-5.1) Total Bilirubin 0.8 mg/dL (0.2-1.0) Aspartate Amino Transferase (AST) 14 U/L (13-40) Alanine Aminotransferase (ALT) 13 U/L (7-40) Alkaline Phosphatase 135 U/L (46-116) Total Protein 8.9 g/dL (5.7-8.2) Albumin 5.5 g/dL (3.2-4.8) Lipase 1013 U/L (12-53) Beta-Hydroxybutyric Acid > 4.500 mmol/L (< 0.4) Plasma/Serum Blood Alcohol 3.2 mg/dL (<10) Other Laboratory Tests 10/24/24 06:13 10/21/24 04:55 Brief Hx & Hospital Course: 34-year-old male with a history of diabetes mellitus presents for evaluation of nausea and vomiting. Endorses a two day history of nausea and vomiting. Patient reports being noncompliant with his insulin regimen and has been drinking approximately two pt of vodka every night. Denies abdominal pain. No fever. No cardiac or respiratory complaints. Diabetic ketoacidosis Alcoholic pancreatitis Leukocytosis,? Reactive bacterial gastroenteritis diarrhea 10/20/2024 Admit the patient to ICU to the hospitalist DKA protocol CT abdomen pending Continue treatment per orders Total critical care time excluding procedures performed this 55 minutes 10/21/2024: improving monitor for another 24 hours 10/22/2024: advance diet as tolerated still has a lot of nausea/vomting 10/23/2024: advancing diet as tolerated : discharged to home Condition at Discharge: Fair Final Diagnosis/Problems List see above Discharge Disposition: Home Discharge Instruct/Medications Diet: Cardiac 2g Na,low cholest Activity: No Restrictions, As Tolerated Discharge Statement: "Patient was advised to return to the ER or call 911 if any headaches, dizziness, shortness of breath, chest pain, abdominal pain, bleeding, fevers, or worsening of medical condition. Patient was counseled about treatment plan, medications, possible side effects, patientverbalized understanding. All questions were answered to the best of my ability. This discharge took greater then 30 minutes in planning, reviewing documentation, counseling the patient, and discussing with other team members." ASSESSMENT ASSESSMENT Assessment Date of Service: Oct 24, 2024 Billing Provider: DAQUAN NEFF DO Common Visit Codes: [id number] DISCH DAY >30min DAQUAN NEFF DO Oct 24, 2024 11:41
--- NOTE | 2024-10-24 12:30 | DVHPN2 ---
Progress Note - Dictate Date Seen: Oct 24, 2024 Has the PT tested + for MRSA If YES, has PT been informed?: No Medical Necessity Reason Pt with a Central, PICC or Fol: No Subjective Patient is feeling much better now some mild nausea but no vomiting or hematemesis Blood sugar is better controlled Mild fullness and crampiness but better Tolerating food okay vital signs Vital Sign Date Time Temp Pulse Resp B/P (MAP) Pulse Ox O2 Delivery O2 Flow Rate FiO2 10/24/24 08:39 98.6 92 16 126/87 (100) 99 98.6 10/24/24 08:00 Room Air* 0 21 Total Intake and Output 10/23/24 10/23/24 10/24/24 14:59 22:59 06:59 Intake Total 150 ml 1420 ml 1000 ml Balance 150 ml 1420 ml 1000 ml medications Current Medications Medications Dose Ordered Sig/Lazaro Route Start Time Stop Time Status Last Admin Dose Admin Potassium Chloride/Sodium Chloride 1,000 ml @ 150 mls/hr Q6H40M IV 10/19/24 15:00 10/24/24 08:04 150 MLS/HR Pantoprazole Sodium 40 mg BID IV 10/19/24 17:00 10/24/24 10:05 40 MG Ceftriaxone Sodium 50 ml @ 100 mls/hr DAILY@09 IV 10/20/24 09:00 10/24/24 10:05 100 MLS/HR Ondansetron HCl 4 mg Q4HP PRN IV 10/19/24 19:00 10/23/24 20:56 4 MG Morphine Sulfate 2 mg Q4HPRN PRN IV 10/19/24 19:00 10/22/24 22:07 2 MG Nitroglycerin 0.4 mg Q5MINP PRN SL 10/19/24 19:00 Morphine Sulfate 2 mg Q30M PRN IV 10/19/24 19:00 Insulin Human Regular IQ4HR SC 10/20/24 16:00 10/24/24 08:01 3 UNITS Dextrose 50 ml UD PRN IV 10/20/24 14:00 Lorazepam 1 mg Q2HP PRN IV 10/20/24 15:00 10/20/24 16:17 1 MG Diagnostic Test (Pha) 1 strip IQ4HR 10/20/24 20:00 10/24/24 07:56 1 STRIP Metronidazole 100 ml @ 100 mls/hr Q8H IV 10/21/24 18:00 10/24/24 11:35 100 MLS/HR objective Abdomen is soft nontender no masses Getting potassium corrected laboratory and microbiology Laboratory Tests 10/24/24 06:13 10/21/24 04:55 Test 10/24/24 06:13 Range/Units Serum Glucose 203 H 74-106 mg/dL Assessment/Plan Patient is doing much better no further bleeding We will correct the electrolytes We will increase the feeds and keep the sugar under control better and symptomatic treatment If any GI symptoms may need further evaluate Thank you Dr. Leggett Dietary Evaluation Review Comments: 1. alcohoic rehabilitation, monitor intakes to meet minimum of 75% of his needs 2. CCHO-60 diet Expected Outcomes/Goals: Controlled DM, recovered alcoholic. gradual wt gain Plan discussed with: Patient VANDANA LEGGETT MD Oct 24, 2024 12:30
== END 2024-10-24 12:58 | disposition home or self-care (01) | DRG 282 ==
LOC: EDBD 13:25 → ER 13:25 → OVERFLOW 18:59 → DOU IN ICU 19:02 → TELE-CENTR 10-21 12:47
PROVIDERS: ADMIT Internal Medicine; ATTEND Internal Medicine
DX: K85.20 Alcohol induced acute pancreatitis without necrosis or infection (principal); N17.0 Acute kidney failure with tubular necrosis; R65.11 Systemic inflammatory response syndrome (SIRS) of non-infectious origin with acute organ dysfunction; E10.10 Type 1 diabetes mellitus with ketoacidosis without coma; A04.9 Bacterial intestinal infection, unspecified; K92.0 Hematemesis; I10 Essential (primary) hypertension; F10.21 Alcohol dependence, in remission; E78.5 Hyperlipidemia, unspecified; Z79.4 Long term (current) use of insulin; Z91.148 Patient's other noncompliance with medication regimen for other reason; Z79.01 Long term (current) use of anticoagulants; Z80.0 Family history of malignant neoplasm of digestive organs; Z82.49 Family history of ischemic heart disease and other diseases of the circulatory system; Z82.5 Family history of asthma and other chronic lower respiratory diseases
CPT/HCPCS: 36415; 36600; 71045; 74176; 80048; 80053; 80307; 80320; 81001; 82010; 82805; 82962; 83605; 83690; 83735; 83930; 84100; 85014; 85018; 85025; 87040; 87081; 93005; 96361; 96372; 96374; 99291; G0378; J0692; J1815; J2003; J2405; J2470; J3490

== ENCOUNTER 2024-12-29 20:00 | Inpatient (IN) | payer MEDICAID ==
[~2024-12-29] VITALS: Ht 167.6 cm; Wt 62.8 kg
[~2024-12-29 20:00] MED LIST changes: +MET500T PO
[2024-12-29] MEDS ORDERED: DEXTROSE (50%) 50ML SYRG IV PRN ×2 (20:15→23:30)
--- NOTE | 2024-12-29 20:28 | ED.PDOC ---
History of Present Illness HPI Comments The patient is a 34-year-old male who comes in with chief complaint of diabetes with an elevated blood sugar. The patient states that over the past 24 hours he has been having significant amount of polyuria and polydipsia. The patient has been having some shortness for breath as well as nausea and vomiting upon arrival. The patient does have a history of diabetes and states that he is compliant with his medication but it does not seem to be working at this time. Time Seen by MD: 20:11 Primary Care Provider: UNKNOWN Reviewed Notes: Nurses Notes, Bench Worker Notes, Medications, Allergies (No allergies to medications) Allergies: Coded Allergies: NO KNOWN ALLERGIES (Unverified , 06/03/22) Home Meds Active Scripts Metronidazole (Metronidazole) 500 Mg Tab, 500 MG PO TID for 5 Days, #15 TAB Prov:DAQUAN NEFF DO 10/24/24 Ondansetron HCl (Ondansetron) 4 Mg Tab, 4 MG PO BID PRN for 30 Days, #60 TAB Prov:MILLY CORRAL 09/06/24 Pantoprazole Sodium Sesquihydr (Pantoprazole Sodium) 40 Mg Tab, 40 MG PO DAILY for 30 Days, #30 TAB Prov:MILLY CORRAL [facility] 09/06/24 Apixaban Base (ELIQUIS) 5 Mg Tab, 5 MG PO BID for 30 Days, #60 TAB Prov:MILLY CORRAL 09/06/24 Insulin Glargine (Lantus) 100 Unit/Ml Inj, 28 UNITS SC HS for 30 Days, #30 INJ Prov:MILLY CORRAL 09/06/24 Sucralfate (CARAFATE SUSP) 1 Gm/10 Ml Ss, 1 GM GT QID@0600,1130,1700,2200 for 30 Days, #120 ML Prov:MILLY CORRAL 09/06/24 Metoprolol Succinate (Toprol Xl) 50 Mg Tab, 25 MG PO DAILY for 30 Days, #15 TAB Prov:MILLY CORRAL 09/06/24 Flecainide Acetate (TAMBOCOR TABLET) 50 Mg Tb, 50 MG PO Q12HR for 30 Days, #60 TAB Prov:MILLY CORRAL 09/06/24 Pantoprazole Sodium Sesquihydr (Pantoprazole Sodium) 40 Mg Tab, 40 MG PO DAILY@0600 for 30 Days, #30 TAB Prov:RIZWANA RODRIGUEZ RESIDENT 12/03/23 Insulin Aspart (Insulin Aspart Flexpen) 100 Unit/Ml Inj, 100 UNIT SC ACHS for 60 Days, #3 INJ Blood sugar 150 to 250: 2 units Blood sugar 251 to 350: 4 units Blood sugar 351 to 400: 6 units Blood sugar 401 and above: 8 units and go to emergency room Prov:COREEN VILLALTA NP 07/05/23 Insulin Regular (Human) (Novolin R) 100 Unit/Ml Inj, 1-15 UNITS SC Q6HPRN PRN for 30 Days, #5 INJ 0 Refills take 1-15 units Q6hr ACHS per sliding scale Prov:VERENA BAUTISTA MD 11/07/21 Atorvastatin Calcium (Lipitor) 20 Mg Tab, 1 TAB PO DAILY, #30 TAB Prov:VERENA BAUTISTA MD 11/07/21 Information Source: Patient, Emergency Med Personnel Mode of Arrival: EMS Severity: Moderate Timing: Hours Duration: Since onset Prehospital treatment: Accucheck (It read high), Chief Customer Officer, IVF Associated signs and symptoms Vomiting with polyuria and polydipsia Past Medical History PAST MEDICAL HISTORY: DM, High Lipids, HTN, Liver, Seizures Surgical History: Denies all surgeries Family History Family History: Family hx of heart mary Social History Smoker: Non-Smoker Alcohol: Heavy Drugs: Denies Drug Use Lives In: Home Constitutional: reports: malaise, weakness; denies: chills, diaphoresis, fatigue, fever, sweats, others EENTM: denies: blurred vision, double vision, ear bleeding, ear discharge, ear drainage, ear pain, ear ringing, eye pain, eye redness, hearing loss, mouth pain, mouth swelling, nasal discharge, nose bleeding, nose congestion, nose pain, photophobia, tearing, throat pain, throat swelling, voice changes, others Respiratory: denies: cough, hemoptysis, orthopnea, SOB at rest, shortness of breath, SOB with excertion, stridor, wheezing, others Cardiovascular: denies: chest pain, dizzy spells, diaphoresis, Dyspnea on exertion, edema, irregular heart beat, left arm pain, lightheadedness, palpitations, PND, syncope, others Gastrointestinal: reports: abdominal pain, nausea, vomiting; denies: abdomen distended, blood streaked bowels, constipated, diarrhea, dysphagia, difficulty swallowing, hematemesis, melena, poor appetite, poor fluid intake, rectal bleeding, rectal pain, others Genitourinary: denies: burning, dysuria, flank pain, frequency, hematuria, incontinence, penile discharge, penile sore, pain, testicle pain, testicle swelling, urgency, others Neurological: denies: dizziness, fainting, headache, left sided numbness, left sided weakness, numbness, paresthesia, pre-existing deficit, right sided numbness, right sided weakness, seizure, speech problems, tingling, tremors, weakness, others Musculoskeletal: denies: back pain, gout, joint pain, joint swelling, muscle pain, muscle stiffness, neck pain, others Integumetry: denies: bruises, change in color, change in hair/nails, dryness, laceration, lesions, lumps, rash, wounds, others Allergic/Immunocompromised: denies: Difficulty Healing, Frequent Infections, Hives, Itching, others Hematologic/Lymphatic: denies: anemia, blood clots, easy bleeding, easy bruising, swollen glands, others Endocrine: reports: excessive thirst, excessive urination; denies: excessive hunger, excessive sweating, flushing, intolerance to cold, intolerance to heat, unexplained weight gain, unexplained weight loss, others Psychiatric: denies: anxiety, bipolar disorder, depression, hopeless, panic disorder, schizophrenia, sleepless, suicidal, others Physical Exam General Appearance: Moderate Distress HEENT: Normal ENT Inspection, Pharynx Normal, TMs Normal Neck: Full Range of Motion, Non-Tender, Normal, Normal Inspection Respiratory: Chest Non-Tender, Lungs Clear, No Accessory Muscle Use, No Respiratory Distress, Normal Breath Sounds Cardiovascular: No Edema, No JVD, No Murmur, No Gallop, Normal Peripheral Pulses, Regular Rate/Rhythm Breast Exam: Deferred Gastrointestinal: No Organomegaly, Non Tender, No Pulsatile Mass, Normal Bowel Sounds, Soft Genitalia: Deferred Pelvic: Deferred Rectal: Deferred Extremities: No calf tenderness, Normal capillary refill, No pedal edema Musculoskeletal : Apperance: Normal Neurologic: Alert, behavioral health associate II-XII nml as Tested, Motor Weakness, Normal Affect, Normal Mood, No Sensory Deficits Cerebellar Function: Unable to Test Reflexes: Normal Skin: Dry, Pallor, Warm Lymphatic: No Adenopathy Was a procedure done? Was a procedure done?: No Differential Dx Considerations may include: DKA, hyperglycemia, dehydration, generalized weakness X-Ray, Labs, Meds, VS Vital Signs Date Time Temp Pulse Resp B/P (MAP) Pulse Ox O2 Delivery O2 Flow Rate FiO2 12/29/24 20:35 98.0 118 24 141/95 (110) 95 98.0 Lab Test 12/29/24 20:33 12/29/24 20:32 12/29/24 20:31 Range/Units POC Glucose 596 *H 575 *H 70-106 mg/dl Blood Gas Specimen Type Arterial Blood Gas Sample Site Right radial Blood Gas Patient Temperature 37.0 Arterial Blood Date Drawn [id number] Arterial Blood pH 7.452 H 7.350-7.450 Arterial Blood Partial Pressure CO2 23.2 L 35.0-48.0 mmHg Arterial Blood Partial Pressure O2 88.1 83.0-108.0 mmHg Arterial Blood HCO3 15.8 L 21.0-28.0 mmol/L Arterial Blood Oxygen Saturation 96.1 94.0-98.0 % Arterial Blood Base Excess -6.5 L -2.0-3.0 mmol/L Arterial Blood Oxyhemoglobin 94.8 94.0-98.0 % Arterial Blood Carboxyhemoglobin 1.1 0.5-1.5 % Arterial Blood Methemoglobin 0.3 0.0-1.5 % Baljit Test Modified Blood Gas Total Hemoglobin 11.10 L 13.5-17.5 g/dL Blood Gas Modality Room air FiO2 % 21.0 White Blood Count 11.2 H 4.4-10.8 10^3/uL Red Blood Count 5.82 4.5-5.90 10^6/uL Hemoglobin 10.4 L 13.5-17.5 g/dL Hematocrit 33.7 L 41.0-53.0 % Mean Corpuscular Volume 57.9 L 80.0-100.0 fL Mean Corpuscular Hemoglobin 17.9 L 28.0-32.0 pg Mean Corpuscular Hemoglobin Concent 30.9 L 32.0-36.0 g/dL Red Cell Distribution Width 20.7 H 11.8-14.3 % Platelet Count 251 140-450 10^3/uL Mean Platelet Volume 8.1 6.9-10.8 fL Neutrophils (%) (Auto) 87.8 H 37.0-80.0 % Lymphocytes (%) (Auto) 6.1 L 10.0-50.0 % Monocytes (%) (Auto) 5.9 0.0-12.0 % Eosinophils (%) (Auto) 0.0 0.0-7.0 % Basophils (%) (Auto) 0.2 0.0-2.0 % Neutrophils # (Auto) 9.8 H 1.6-8.6 10 ^3/uL Lymphocytes # (Auto) 0.7 0.4-5.4 10 ^3/uL Monocytes # (Auto) 0.7 0-1.3 10 ^3/uL Eosinophils # (Auto) 0 0-0.8 10 ^3/uL Basophils # (Auto) 0 0-0.2 10 ^3/uL Nucleated Red Blood Cells 0.1 % Sodium Level Pending Potassium Level Pending Chloride Level Pending Carbon Dioxide Level Pending Anion Gap Pending Blood Urea Nitrogen Pending Creatinine Pending Glomerular Filtration Rate Calc Pending BUN/Creatinine Ratio Pending Serum Glucose Pending Calcium Level Pending Beta-Hydroxybutyric Acid Pending Plasma/Serum Blood Alcohol Pending IV Hep-Lock was established. The patient was given 1 L bolus of normal saline The patient's CBC shows a slightly elevated white blood cell count 11.2 The hemoglobin is 10.4 and hematocrit of 33.7 indicating anemia The ABG was done but does not indicate DKA at this time The patient's blood sugar has been running above 590 on it Accu-Chek The chemistry panel is also pending The patient is being admitted to the hospitalist with a diagnosis of unc ontrolled diabetes We started the patient on an insulin drip to control the patient's blood sugar The patient is admitted at this time The patient was given Zofran 4 mg IV push for the vomiting Images Reviewed?: Images reviewed and evaluated by me Time of 1ST Reevaluation: 20:28 Reevaluation 1ST: Unchanged Patient Education/Counseling: Diagnosis, Treatment, Prognosis Family Education/Counseling: No Family Present SEPSIS Sepsis Screen Physician Orders Insulin Drip 100 Unit/100ml (Myxredlin 1 (12/29/24 20:15) Glucose Blood (Accu-Chek Comfort Curve T (12/29/24 21:00) D/C All Diabetic Medications (12/29/24 20:11) Insulin Drip Protocol (12/29/24 20:11) Dextrose 50% Syringe (12/29/24 20:15) Insulin Lantus (Glargine) (Lantus) (12/30/24 10:00) Chest Portable (12/29/24 20:11) Urinalysis (12/29/24 20:11) Basic Metabolic Panel (12/29/24 20:11) Heplock Iv (12/29/24 20:11) Chief Customer Officer (12/29/24 20:11) Blood Pressure (12/29/24 20:11) Pulse Oximetry (12/29/24 20:11) Sodium Chloride 0.9% (12/29/24 20:15) Electrocardigram (12/29/24 20:11) Acetone (12/29/24 20:11) Blood Alcohol (12/29/24 20:26) Abg W/ Co-Ox (12/29/24 20:29) Vital Signs Date Time Temp Pulse Resp B/P (MAP) Pulse Ox O2 Delivery O2 Flow Rate FiO2 12/29/24 20:35 98.0 118 24 141/95 (110) 95 98.0 Laboratory Tests Test 12/29/24 20:31 White Blood Count 11.2 10^3/uL (4.4-10.8) H Departure 1 Departure Time of Disposition: 20:28 Impression: Primary Impression: Uncontrolled diabetes mellitus Qualified Codes: E13.65 - Other specified diabetes mellitus with hyperglycemia Additional Impression: Generalized weakness Disposition: 09 ADMITTED INPATIENT Admit to: ICU Condition: Fair Critical Care Note Critical Care Time?: Yes (55 min-critical care time only) Stability Stability form required: Yes Unstable for transfer: ICU, CCU, PCU, SOLOMON (Intensive VS monitoring), ED Physician Assesment (Clinical assesment) Heart Score Heart Score: Heart Score Response (Comments) Value History N/A 0 EKG N/A 0 Age N/A 0 Risk Factors N/A 0 Troponin N/A 0 Total 0 NIRMALA BOURGEOIS MD Dec 29, 2024 20:28
--- NOTE | 2024-12-29 20:39 | DVH ---
EXAMINATION: Chest x-ray 1 view CLINICAL HISTORY: Vomiting and weakness COMPARISON: XY CHEST PORTABLE on DOS: 10/19/24 FINDINGS: No dominant consolidations. The costophrenic angles appear clear. No sizable pleural effusion or pne umothorax. The cardiomediastinal silhouette appears within normal limits given technique. IMPRESSION: No acute cardiopulmonary findings.
[2024-12-29 20:45] LABS: Base Excess -6.5 mmol/L (-2.0-3.0)
[2024-12-29 20:47] LABS: Basophils # (auto) 0 10 ^3/uL (0-0.2); Basophils % (auto) 0.2 % (0.0-2.0); Eosinophils # (auto) 0 10 ^3/uL (0-0.8); Hematocrit 33.7 % (41.0-53.0); Hemoglobin 10.4 g/dL (13.5-17.5); Lymphocytes # (auto) 0.7 10 ^3/uL (0.4-5.4); Lymphocytes % (auto) 6.1 % (10.0-50.0); Mean Corpuscular Hemoglobin 17.9 pg (28.0-32.0); Mean Corpuscular Hgb Conc. 30.9 g/dL (32.0-36.0); Mean Corpuscular Volume 57.9 fL (80.0-100.0); Monocytes # (auto) 0.7 10 ^3/uL (0-1.3); Monocytes % (auto) 5.9 % (0.0-12.0); Neutrophils # (auto) 9.8 10 ^3/uL (1.6-8.6); Neutrophils % (auto) 87.8 % (37.0-80.0); Nucleated Red Blood Cells % 0.1 %; Platelet Count (auto) 251 10^3/uL (140-450); Red Blood Cells 5.82 10^6/uL (4.5-5.90); White Blood Cell 11.2 10^3/uL (4.4-10.8)
[2024-12-29 20:48] LABS: Red Cell Distribution Width 20.7 % (11.8-14.3)
[2024-12-29 20:53] LABS: Anion Gap 35 (5-15)
[2024-12-29 20:54] LABS: Calcium 10.1 mg/dL (8.7-10.4)
[2024-12-29 20:59] LABS: BUN/Creatinine Ratio 14.8 (10.0-20.0)
[2024-12-29 21:12] LABS: Blood Urea Nitrogen 30 mg/dL (9-23); Carbon Dioxide 16 mmol/L (20-31); Chloride 74 mmol/L (98-107); Potassium 3.1 mmol/L (3.5-5.1); Sodium 125 mmol/L (136-145)
[2024-12-29 21:13] LABS: Glucose 557 mg/dL (74-106)
[2024-12-29 21:20] VITALS: PULSE 119; RESP 16; O2SAT 100
[2024-12-29] MEDS: SODIUM CHLORIDE 0.9% 1,000 ML IV ONE ×2 (21:20→22:45)
[2024-12-29] MEDS: ACCU-CHEK COMFORT CURVE STRIP VI SCH (21:21)
[2024-12-29] MEDS: ONDANSETRON HCL 4 MG/2 ML VIAL IV ONE (21:42)
[2024-12-29] MEDS: INSULIN LANTUS (GLARGINE) 1 /0.01ml (100units/ml) SC ONE (21:43)
[2024-12-29] MEDS: INSULIN DRIP 100 UNIT/100ML 100 ML IV SCH (21:49)
[2024-12-29] MEDS: PANTOPRAZOLE 40 MG/10 ML VIAL INJ IV ONE (22:39)
[2024-12-29] MEDS ORDERED: MORPHINE SULFATE INJ 2 MG/ml SYRG IV PRN (23:30)
[2024-12-29] MEDS: SOD CHL 0.9%/ KCL 20MEQ 1,000 ML IV ONE (23:30)
[2024-12-29] MEDS ORDERED: NITROGLYCERIN 0.4 MG SL TAB SL PRN (23:30)
[2024-12-30] VITALS (65 sets, daily range): BP systolic 110–197; BP diastolic 67–100; PULSE 72–131; RESP 8–33; TEMP 98.2–99.3; O2SAT 69–100
[2024-12-30 00:16] LABS: Anion Gap 22 (5-15); Carbon Dioxide 23 mmol/L (20-31)
[2024-12-30 00:22] LABS: BUN/Creatinine Ratio 19.3 (10.0-20.0); Sodium 131 mmol/L (136-145)
[2024-12-30 00:23] LABS: Blood Urea Nitrogen 33 mg/dL (9-23); Chloride 86 mmol/L (98-107); Glucose 230 mg/dL (74-106)
[2024-12-30 00:28] LABS: Potassium 2.5 mmol/L (3.5-5.1)
--- NOTE | 2024-12-30 04:07 | DVHHP2 ---
History of Present Illness Reason for Visit: Hyperglycemia History of Present Illness 34-year-old male presents for evaluation of hyperglycemia. Patient reports a one day history of significant polyuria and polydipsia. He also reports his blood sugars reading high. He states being compliant with his medications. Past Medical History Hypertension, diabetes mellitus, seizures Past Surgical History Denies Family History Heart disease Smoke: No ALCOHOL: heavy Drugs: None Lives: with Family Review of Systems Review of Systems Review of systems are currently negative otherwise addressed in HPI. Allergies: Coded Allergies: NO KNOWN ALLERGIES (Unverified , 06/03/22) Medications Current Medications Medications Dose Ordered Sig/Lazaro Route Start Time Stop Time Status Last Admin Dose Admin Insulin Human (Reg)/Sodium Chloride 100 ml @ 0.5 mls/hr Q24H IV 12/29/24 20:15 12/30/24 03:03 1 MLS/HR Diagnostic Test (Pha) 1 strip Q90MIN 12/29/24 21:00 12/30/24 03:03 1 STRIP Dextrose 50 ml PRN PRN IV 12/29/24 20:15 Insulin Glargine 15 units DAILY SC 12/30/24 10:00 Pantoprazole Sodium 40 mg DAILY IV 12/30/24 10:00 Dextrose 50 ml UD PRN IV 12/29/24 23:30 Ondansetron HCl 4 mg Q4HP PRN IV 12/29/24 23:30 Nitroglycerin 0.4 mg Q5MINP PRN SL 12/29/24 23:30 Morphine Sulfate 2 mg Q30M PRN IV 12/29/24 23:30 Exam Vital Signs Vital Signs Date Time Temp Pulse Resp B/P (MAP) Pulse Ox O2 Delivery O2 Flow Rate FiO2 12/30/24 00:15 121 16 109/78 (88) 98 12/29/24 21:20 Room Air* 0 21 12/29/24 20:57 97.2 97.2 Exam Gen: 34-year-old male in mild distress Skin: Warm, dry, normal color and texture, no rash. HEENT: Normocephalic atraumatic, mucous membranes moist and pink. Neck: Cervical and supraclavicular nodes normal without enlargement, trachea is midline, thyroid gland is normal without masses. Pulmonary: Clear to auscultation and percussion bilaterally. Cardiac: Regular rate and rhythm. No murmur Abdomen: Soft, nontender, nondistended, bowel sounds present all 4 quadrants, no guarding, no rigidity, no organomegaly. Extremities: No cyanosis, clubbing, no edema Neuro: Cranial nerves II through XII grossly intact, normal affect and speech, no focal motor deficits. Labs/Xrays ORDERING PHYSICIAN: NIRMALA BOURGEOIS MD PROCEDURE(s): CXRP - CHEST PORTABLE REASON: Vomiting and weakness ORDER NUMBER(s): [id number], ACCESSION NUMBER(s): [id number] EXAMINATION: Chest x-ray 1 view CLINICAL HISTORY: Vomiting and weakness COMPARISON: XY CHEST PORTABLE on DOS: 10/19/24 FINDINGS: No dominant consolidations. The costophrenic angles appear clear. No sizable pleural effusion or pneumothorax. The cardiomediastinal silhouette appears within normal limits given technique. IMPRESSION: No acute cardiopulmonary findings. Labs Test 12/30/24 02:59 12/29/24 23:59 12/29/24 20:32 12/29/24 20:31 Range/Units POC Glucose 137 H 70-106 mg/dl Sodium Level 131 #L 136-145 mmol/L Potassium Level 2.5 *L 3.5-5.1 mmol/L Chloride Level 86 #L 98-107 mmol/L Carbon Dioxide Level 23 20-31 mmol/L Anion Gap 22 H 5-15 Blood Urea Nitrogen 33 H 9-23 mg/dL Creatinine 1.71 H 0.700-1.30 mg/dL Glomerular Filtration Rate Calc 53 >90 mL/min BUN/Creatinine Ratio 19.3 10.0-20.0 Serum Glucose 230 #H 74-106 mg/dL Calcium Level 9.0 8.7-10.4 mg/dL Blood Gas Specimen Type Arterial Blood Gas Sample Site Right radial Blood Gas Patient Temperature 37.0 Arterial Blood Date Drawn Arterial Blood pH 7.452 H 7.350-7.450 Arterial Blood Partial Pressure CO2 23.2 L 35.0-48.0 mmHg Arterial Blood Partial Pressure O2 88.1 83.0-108.0 mmHg Arterial Blood HCO3 15.8 L 21.0-28.0 mmol/L Arterial Blood Oxygen Saturation 96.1 94.0-98.0 % Arterial Blood Base Excess -6.5 L -2.0-3.0 mmol/L Arterial Blood Oxyhemoglobin 94.8 94.0-98.0 % Arterial Blood Carboxyhemoglobin 1.1 0.5-1.5 % Arterial Blood Methemoglobin 0.3 0.0-1.5 % Baljit Test Modified Blood Gas Total Hemoglobin 11.10 L 13.5-17.5 g/dL Blood Gas Modality Room air FiO2 % 21.0 White Blood Count 11.2 H 4.4-10.8 10^3/uL Red Blood Count 5.82 4.5-5.90 10^6/uL Hemoglobin 10.4 L 13.5-17.5 g/dL Hematocrit 33.7 L 41.0-53.0 % Mean Corpuscular Volume 57.9 L 80.0-100.0 fL Mean Corpuscular Hemoglobin 17.9 L 28.0-32.0 pg Mean Corpuscular Hemoglobin Concent 30.9 L 32.0-36.0 g/dL Red Cell Distribution Width 20.7 H 11.8-14.3 % Platelet Count 251 140-450 10^3/uL Mean Platelet Volume 8.1 6.9-10.8 fL Neutrophils (%) (Auto) 87.8 H 37.0-80.0 % Lymphocytes (%) (Auto) 6.1 L 10.0-50.0 % Monocytes (%) (Auto) 5.9 0.0-12.0 % Eosinophils (%) (Auto) 0.0 0.0-7.0 % Basophils (%) (Auto) 0.2 0.0-2.0 % Neutrophils # (Auto) 9.8 H 1.6-8.6 10 ^3/uL Lymphocytes # (Auto) 0.7 0.4-5.4 10 ^3/uL Monocytes # (Auto) 0.7 0-1.3 10 ^3/uL Eosinophils # (Auto) 0 0-0.8 10 ^3/uL Basophils # (Auto) 0 0-0.2 10 ^3/uL Nucleated Red Blood Cells 0.1 % Serum Osmolality 319 H 278-298 mOsm/kg Beta-Hydroxybutyric Acid > 4.500 H < 0.4 mmol/L Plasma/Serum Blood Alcohol 3.0 <10 mg/dL Assessment/Plan Assessment/Plan Assessment Diabetic ketoacidosis Acute kidney injury Noncompliant Plan Admit the patient to the area to the hospitalist DKA protocol NPO Continue treatment per orders Total critical care time excluding procedures performed this 50 minutes. Plan discussed with: Patient My Orders Orders - BUCKY QUIGLEY Procedure Category Date Status Time Sod Chl 0.9%/ Kcl PHA 12/29/24 In Process 20meq 23:30 Pantoprazole PHA 12/30/24 In Process (Protonix) 10:00 Dextrose 50% Syringe PHA 12/29/24 In Process 23:30 Basic Metabolic Panel LAB 12/30/24 Logged 11:19 Basic Metabolic Panel LAB 12/30/24 Logged 17:19 Neurological JYASHREE 12/29/24 In Process Assessment 23:19 Vs/Hemodynamics JAYSHREE 12/29/24 In Process 23:19 Admit ADMIT 12/29/24 Transmitted 23:19 Ondansetron Hcl PHA 12/29/24 In Process (Zofran) 23:30 Complete Blood Count LAB 12/30/24 Logged 04:00 Comprehensive LAB 12/30/24 Logged Metabolic Panel 04:00 Npo (Nothing By DIET 12/30/24 Transmitted Mouth) Diet Breakfast Condition: Critical JAYSHREE 12/29/24 In Process 23:19 Bedrest With Bathroom JAYSHREE 12/29/24 In Process Privileg 23:19 Nitroglycerin PHA 12/29/24 In Process Sublingual (Ntrostat 23:30 Morphine Sulfate PHA 12/29/24 In Process Injection 23:30 Stat Ekg For Chest JAYSHREE 12/29/24 In Process Pain 23:19 Notify Md Of Changes JAYSHREE 12/29/24 In Process From Base 23:19 Bilingual Research Interviewer For JAYSHREE 12/29/24 In Process 24 Hours 23:19 Emergency Dysrhythmia JAYSHREE 12/29/24 In Process Protocol 23:19 Rhythm Strips Once JAYSHREE 12/29/24 In Process Every Shift 23:19 Oxygen By Nasal RT 12/29/24 Transmitted Cannula 23:19 Potassium Chl [place] PHA 12/30/24 Verified KCL 04:15 Date of Service: Dec 29, 2024 Billing Provider: BUCKY QUIGLEY Common Visit Codes: [id number] CARE 30-74 MIN BUCKY QUIGLEY Dec 30, 2024 04:07
[2024-12-30] MEDS: POTASSIUM CHL 20MEQ/100ML 100 ML IV SCH (04:32)
[2024-12-30] MEDS: ONDANSETRON HCL 4 MG/2 ML VIAL IV PRN (06:02)
[2024-12-30 06:27] LABS: Basophils # (auto) 0 10 ^3/uL (0-0.2); Eosinophils # (auto) 0 10 ^3/uL (0-0.8)
[2024-12-30 06:31] LABS: Hematocrit 28.1 % (41.0-53.0); Lymphocytes # (auto) 0.5 10 ^3/uL (0.4-5.4); Lymphocytes % (auto) 6.2 % (10.0-50.0); Mean Corpuscular Hemoglobin 18.3 pg (28.0-32.0); Mean Corpuscular Volume 57.4 fL (80.0-100.0); Neutrophils # (auto) 7.2 10 ^3/uL (1.6-8.6); Neutrophils % (auto) 82.8 % (37.0-80.0); Nucleated Red Blood Cells % 0.1 %; Platelet Count (auto) 178 10^3/uL (140-450); Red Blood Cells 4.89 10^6/uL (4.5-5.90); Red Cell Distribution Width 19.9 % (11.8-14.3); White Blood Cell 8.6 10^3/uL (4.4-10.8)
[2024-12-30 06:45] LABS: Alanine Aminotransferase < 9 U/L (7-40); Albumin 4.3 g/dL (3.2-4.8); Alkaline Phosphatase 103 U/L (46-116); Anion Gap 14 (5-15); Aspartate Aminotransferase 11 U/L (<34); BUN/Creatinine Ratio 18.3 (10.0-20.0); Bilirubin, Total 0.7 mg/dL (0.2-1.0); Blood Urea Nitrogen 21 mg/dL (9-23); Calcium 8.5 mg/dL (8.7-10.4); Carbon Dioxide 25 mmol/L (20-31); Chloride 99 mmol/L (98-107); Glucose 109 mg/dL (74-106); Potassium 2.9 mmol/L (3.5-5.1); Sodium 138 mmol/L (136-145)
[2024-12-30 06:52] LABS: Urine Bacteria None Seen /hpf (None Seen)
[2024-12-30 07:14] LABS: Urine Blood Negative /uL (Negative); Urine Clarity Clear (Clear); Urine Color Light-Yellow (Yellow); Urine Hyaline Cast FEW /lpf (0 - 2); Urine Protein, UAD Negative (Negative); Urine Specific Gravity 1.013 (1.001-1.035); Urine Squamous Epithelial Cell FEW /hpf (<5); Urine Urobilinogen Normal (Negative); Urine WBC < 1 /HPF (0-3); Urine pH 5.5 (5.0-9.0)
[2024-12-30] MEDS: PANTOPRAZOLE 40 MG/10 ML VIAL INJ IV SCH (09:31)
[2024-12-30 09:59] LABS: Anion Gap 13 (5-15); Carbon Dioxide 25 mmol/L (20-31); Chloride 102 mmol/L (98-107); Sodium 140 mmol/L (136-145)
[2024-12-30 10:00] LABS: Calcium 9.1 mg/dL (8.7-10.4)
[2024-12-30 10:01] LABS: Potassium 3.3 mmol/L (3.5-5.1)
[2024-12-30 10:04] LABS: Glucose 100 mg/dL (74-106)
[2024-12-30 10:05] LABS: BUN/Creatinine Ratio 18.2 (10.0-20.0); Blood Urea Nitrogen 20 mg/dL (9-23)
[2024-12-30] MEDS: INSULIN LANTUS (GLARGINE) 1 /0.01ml (100units/ml) SC SCH (10:38)
[2024-12-30] MEDS: POTASSIUM CHLORIDE 40 MEQ in SOD CHL 0.45% 1,000 ML IV SCH (12:00)
[2024-12-30] MEDS ORDERED: DEXTROSE (50%) 50ML SYRG IV PRN (12:30)
--- NOTE | 2024-12-30 12:31 | DVHPN2 ---
Subjective Patient denies any symptoms at this time Reviewed: Care Plan, H&P, Labs Changes from previous H/P or p: No Changes General: Per HPI Objective Vitals Vital Signs Date Time Temp Pulse Resp B/P (MAP) Pulse Ox O2 Delivery O2 Flow Rate FiO2 12/30/24 11:15 73 14 171/93 (119) 97 12/30/24 08:00 98.2 98.2 12/30/24 08:00 Room Air* 0 21 Intake/Output Intake and Output 12/30/24 07:00 Intake Total 1715.5 ml Balance 1715.5 ml Intake IV Total 1715.5 ml General Appearance: Alert, Oriented X3, Cooperative, No acute distress HEENT: Atraumatic, PERRLA Lungs: Clear to auscultation, Normal air movement Cardiovascular: Normal S1, Normal S2 Abdomen: Normal bowel sounds, Soft, No tenderness Musculoskeletal: Normal sensory function, Normal motor function Skin: Dry, Intact Psych/Mental Status: Mental status NL, Mood NL Medications Current Medications Medications Dose Ordered Sig/Lazaro Route Start Time Stop Time Status Last Admin Dose Admin Insulin Glargine 15 units DAILY SC 12/30/24 10:00 12/30/24 10:38 15 UNITS Pantoprazole Sodium 40 mg DAILY IV 12/30/24 10:00 12/30/24 09:31 40 MG Ondansetron HCl 4 mg Q4HP PRN IV 12/29/24 23:30 12/30/24 06:02 4 MG Nitroglycerin 0.4 mg Q5MINP PRN SL 12/29/24 23:30 Morphine Sulfate 2 mg Q30M PRN IV 12/29/24 23:30 Potassium Chloride 40 meq/ Sodium Chloride 1,020 ml @ 100 mls/hr [id number] IV 12/30/24 12:00 UNV Nifedipine 60 mg DAILY PO 12/31/24 10:00 UNV Labetalol HCl 10 mg Q2HPRN PRN IV 12/30/24 12:00 UNV Laboratory Results Laboratory Tests 12/30/24 05:54 12/30/24 09:13 Chemistry Test 12/29/24 20:31 12/29/24 23:59 12/30/24 05:54 12/30/24 09:13 Calcium Level 10.1 mg/dL (8.7-10.4) 9.0 mg/dL (8.7-10.4) 8.5 mg/dL (8.7-10.4) L 9.1 mg/dL (8.7-10.4) Albumin 4.3 g/dL (3.2-4.8) Total Protein 7.0 g/dL (5.7-8.2) LFT Test 12/30/24 05:54 Alanine Aminotransferase (ALT) < 9 U/L (7-40) Alkaline Phosphatase 103 U/L (46-116) Aspartate Amino Transferase (AST) 11 U/L (<34) Total Bilirubin 0.7 mg/dL (0.2-1.0) Urinalysis Test 12/30/24 06:00 Urine Color Light-yellow (Yellow) Urine Clarity Clear (Clear) Urine pH 5.5 (5.0-9.0) Urine Specific [place] 1.013 (1.001-1.035) Urine Protein Negative (Negative) Urine Ketones 4+ (Negative) H Urine Blood Negative /uL (Negative) Urine Nitrite Negative (Negative) Urine Bilirubin Negative (Negative) Urine Urobilinogen Normal mg/dL (Negative) Urine Leukocyte Esterase Negative /uL (Negative) Urine RBC <1 /hpf (0 - 3) Urine Microscopic WBC < 1 /HPF (0-3) Urine Squamous Epithelial Cells Few /hpf (<5) Urine Bacteria None seen /hpf (None Seen) Urine Hyaline Casts Few /lpf (0 - 2) Urine Glucose 4+ mg/dL (Normal) H Blood Gas Results Test 12/29/24 20:32 Arterial Blood pH 7.452 (7.350-7.450) FiO2 % 21.0 Labs and/or images reviewed: Labs reviewed by me, Image(s) reviewed by me Assessment/Plan Assessment/Plan Impression: -diabetic ketoacidosis -juvenile diabetes -hypokalemia -acute kidney injury, vasomotor nephropathy -leukocytosis with out sepsis. Sirs without organ dysfunction -accelerated hypertension Plan: -anion gap closed. Blood sugars controlled. Transfer to telemetry unit -change IV fluids to 0.45 normal saline with 40 mEq of potassium chloride at 100 mL/hour -stop insulin drip, continue long-acting insulin. Start regular insulin sliding scale, a.c./HS -antihypertensive: Nifedipine XL 60 mg p.o. daily -repeat labs in a.m. Total time spent with patient discussing and formulating plan of care: 35 minutes. This medical document was created using an electronic medical record system with Stamped dictation system. Although this document has been carefully reviewed, there may still be some phonetic and typographical errors. These areas are purely typographical due to imperfections of the software programs, and do not reflect any compromise in the patient's medical care. Plan discussed with: Patient, Other (RN) My Orders Orders - COREEN VILLALTA NP Procedure Category Date Status Time Sod Chl 0.45% PHA 12/30/24 Logged (Sodi... W/Potassium 12:00 Consistent DIET 12/30/24 Transmitted Carb(Ccho)Diabetes Lunch Nifedipine Er PHA 12/30/24 Logged (Procardia Xl 12:00 Nifedipine Er PHA 12/31/24 Logged (Procardia Xl 10:00 Transfer Orders XFER 12/30/24 Transmitted 11:49 Labetalol Hcl PHA 12/30/24 Logged (Labetalol Hcl) 12:00 Date of Service: Dec 30, 2024 Billing Provider: COREEN VILLALTA NP Common Visit Codes: [id number] INP/OBS CARE(HIGH) COREEN VILLALTA NP Dec 30, 2024 12:31
[2024-12-30] MEDS: NIFEdipine ER 30 MG TAB PO ONE (12:52)
[2024-12-30 13:10] LABS: Chloride 103 mmol/L (98-107); Sodium 140 mmol/L (136-145)
[2024-12-30 13:12] LABS: Anion Gap 13 (5-15); Calcium 9.2 mg/dL (8.7-10.4); Carbon Dioxide 24 mmol/L (20-31)
[2024-12-30 13:14] LABS: Potassium 3.3 mmol/L (3.5-5.1)
[2024-12-30 13:16] LABS: BUN/Creatinine Ratio 17.9 (10.0-20.0); Blood Urea Nitrogen 19 mg/dL (9-23)
[2024-12-30 13:18] LABS: Glucose 118 mg/dL (74-106)
[2024-12-30] MEDS: LABETALOL HCL 20 MG/4 ML VL IV PRN (13:58)
[2024-12-30 17:32] LABS: Chloride 104 mmol/L (98-107); Sodium 140 mmol/L (136-145)
[2024-12-30 17:33] LABS: Anion Gap 11 (5-15); Calcium 9.2 mg/dL (8.7-10.4); Carbon Dioxide 25 mmol/L (20-31)
[2024-12-30] MEDS: ACCU-CHEK COMFORT CURVE STRIP VI SCH (17:36)
[2024-12-30 17:38] LABS: Blood Urea Nitrogen 22 mg/dL (9-23)
[2024-12-30] MEDS: InsuLIN REG 1unit/0.01ml Soln (100units/ml) SC SCH ×2 (17:39→22:00)
[2024-12-30] MEDS: MAGNESIUM SULFATE 1GM/100ML 100 ML IV ONE (17:41)
[2024-12-30 17:42] LABS: Glucose 137 mg/dL (74-106); Potassium 3.3 mmol/L (3.5-5.1)
[2024-12-31] VITALS (25 sets, daily range): BP systolic 100–129; BP diastolic 57–90; PULSE 63–128; RESP 10–20; TEMP 98.7–99.3; O2SAT 96–100
[2024-12-31 04:28] LABS: Basophils # (auto) 0 10 ^3/uL (0-0.2); Basophils % (auto) 0.4 % (0.0-2.0); Eosinophils # (auto) 0 10 ^3/uL (0-0.8); Hemoglobin 8.2 g/dL (13.5-17.5); Lymphocytes # (auto) 0.5 10 ^3/uL (0.4-5.4); White Blood Cell 4.1 10^3/uL (4.4-10.8)
[2024-12-31 04:33] LABS: Eosinophils % (auto) 0.2 % (0.0-7.0); Hematocrit 26.3 % (41.0-53.0); Lymphocytes % (auto) 11.4 % (10.0-50.0); Mean Corpuscular Hemoglobin 18.4 pg (28.0-32.0); Mean Corpuscular Hgb Conc. 31.2 g/dL (32.0-36.0); Monocytes # (auto) 0.5 10 ^3/uL (0-1.3); Monocytes % (auto) 12.2 % (0.0-12.0); Neutrophils # (auto) 3.1 10 ^3/uL (1.6-8.6); Neutrophils % (auto) 75.8 % (37.0-80.0); Nucleated Red Blood Cells % 0.1 %; Platelet Count (auto) 138 10^3/uL (140-450); Red Blood Cells 4.46 10^6/uL (4.5-5.90)
[2024-12-31 04:51] LABS: Anion Gap 12 (5-15); Carbon Dioxide 24 mmol/L (20-31); Chloride 102 mmol/L (98-107); Sodium 138 mmol/L (136-145)
[2024-12-31 04:57] LABS: BUN/Creatinine Ratio 13.2 (10.0-20.0); Blood Urea Nitrogen 12 mg/dL (9-23)
[2024-12-31 05:09] LABS: Glucose 145 mg/dL (74-106); Potassium 3.4 mmol/L (3.5-5.1)
[2024-12-31 05:10] LABS: Calcium 8.5 mg/dL (8.7-10.4)
[2024-12-31 05:24] LABS: Hypochromia Marked
[2024-12-31 05:25] LABS: Platelet Estimate Adequate
[2024-12-31] MEDS: NIFEdipine ER 30 MG TAB PO SCH (10:09)
[2024-12-31 10:36] LABS: Hepatitis B Surface Antigen Negative (Negative); Hepatitis C Antibody Negative (Negative)
--- NOTE | 2024-12-31 10:53 | DVHPN2 ---
Subjective The patient is seen and examined at bedside. Complain of nausea but no vomiting. Blood glucose still fluctuating and down. Some episode is less than 60. Reviewed: Care Plan, H&P, Labs Changes from previous H/P or p: No Changes General: Per HPI Objective Vitals Vital Signs Date Time Temp Pulse Resp B/P (MAP) Pulse Ox O2 Delivery O2 Flow Rate FiO2 12/31/24 10:09 146/85 12/31/24 10:00 71 12/31/24 10:00 17 100 Room Air* 0 21 12/31/24 08:00 98.7 98.7 Intake/Output Intake and Output 12/31/24 07:00 Intake Total 3404.0 ml Output Total 2100 ml Balance 1304.0 ml Intake Oral 920 ml IV Total 2484.0 ml Output Urine Total 1975 ml Emesis 125 ml General Appearance: Alert, Oriented X3, Cooperative, No acute distress HEENT: Atraumatic, PERRLA Lungs: Clear to auscultation, Normal air movement Cardiovascular: Normal S1, Normal S2 Abdomen: Normal bowel sounds, Soft, No tenderness Musculoskeletal: Normal sensory function, Normal motor function Skin: Dry, Intact Psych/Mental Status: Mental status NL, Mood NL Medications Current Medications Medications Dose Ordered Sig/Lazaro Route Start Time Stop Time Status Last Admin Dose Admin Insulin Glargine 15 units DAILY SC 12/30/24 10:00 12/31/24 10:20 15 UNITS Pantoprazole Sodium 40 mg DAILY IV 12/30/24 10:00 12/31/24 10:08 40 MG Ondansetron HCl 4 mg Q4HP PRN IV 12/29/24 23:30 12/30/24 13:42 4 MG Nitroglycerin 0.4 mg Q5MINP PRN SL 12/29/24 23:30 Morphine Sulfate 2 mg Q30M PRN IV 12/29/24 23:30 Potassium Chloride 40 meq/ Sodium Chloride 1,020 ml @ 100 mls/hr [id number] IV 12/30/24 12:00 12/31/24 01:11 100 MLS/HR Nifedipine 60 mg DAILY PO 12/31/24 10:00 12/31/24 10:09 60 MG Labetalol HCl 10 mg Q2HPRN PRN IV 12/30/24 12:00 12/30/24 13:58 10 MG Diagnostic Test (Pha) 1 strip ACHS 12/30/24 17:00 12/31/24 10:09 1 STRIP Insulin Human Regular HS SC 12/30/24 22:00 Insulin Human Regular AC SC 12/30/24 17:00 12/31/24 10:19 6 UNITS Dextrose 50 ml UD PRN IV 12/30/24 12:30 Laboratory Results Laboratory Tests 12/31/24 03:37 Chemistry Test 12/30/24 12:48 12/30/24 17:13 12/31/24 03:37 Calcium Level 9.2 mg/dL (8.7-10.4) 9.2 mg/dL (8.7-10.4) 8.5 mg/dL (8.7-10.4) L Magnesium Level 2.5 mg/dL (1.6-2.6) Urinalysis Test 12/30/24 06:00 Urine Color Light-yellow (Yellow) Urine Clarity Clear (Clear) Urine pH 5.5 (5.0-9.0) Urine Specific [place] 1.013 (1.001-1.035) Urine Protein Negative (Negative) Urine Ketones 4+ (Negative) H Urine Blood Negative /uL (Negative) Urine Nitrite Negative (Negative) Urine Bilirubin Negative (Negative) Urine Urobilinogen Normal mg/dL (Negative) Urine Leukocyte Esterase Negative /uL (Negative) Urine RBC <1 /hpf (0 - 3) Urine Microscopic WBC < 1 /HPF (0-3) Urine Squamous Epithelial Cells Few /hpf (<5) Urine Bacteria None seen /hpf (None Seen) Urine Hyaline Casts Few /lpf (0 - 2) Urine Glucose 4+ mg/dL (Normal) H Labs and/or images reviewed: Labs reviewed by me Assessment/Plan Assessment/Plan -diabetic ketoacidosis -juvenile diabetes -hypokalemia -acute kidney injury, vasomotor nephropathy -leukocytosis with out sepsis. Sirs without organ dysfunction -accelerated hypertension Plan: -continuing current management -continuing IV fluids to 0.45 normal saline with 40 mEq of potassium chloride at 100 mL/hour - continue long-acting insulin. Continuing regular insulin sliding scale, a.c./HS . We will follow blood glucose closely. We will give D50 as needed if blood glucose less than 60 -antihypertensive: Nifedipine XL 60 mg p.o. daily This medical document was created using an electronic medical record system with [employer] direct computerized dictation system. Although this document has been carefully reviewed, there may still be some phonetic and typographical errors. These areas are purely typographical due to imperfections of the software programs, and do not reflect any compromise in the patient's medical care. Plan discussed with: Patient Date of Service: Dec 31, 2024 Billing Provider: JEAN PAUL MALIK MD Common Visit Codes: [id number] INP/OBS CARE(HIGH) JEAN PAUL MALIK MD Dec 31, 2024 10:53
[2024-12-31] MEDS: SODIUM CHLOR 0.9% PF (SALINE LOCK) 10ML VIAL/SYR IV SCH (21:49)
[2025-01-01] VITALS (8 sets, daily range): BP systolic 115–137; BP diastolic 80–93; PULSE 82–107; RESP 15–20; TEMP 97.6–98.7; O2SAT 98–100
[2025-01-01] MEDS: GABAPENTIN 300 MG CAP PO SCH (18:44)
--- NOTE | 2025-01-01 23:33 | DVHPN2 ---
Subjective The patient is seen and examined at bedside. No complaint today. Reviewed: Care Plan, H&P, Labs Changes from previous H/P or p: No Changes General: Per HPI Objective Vitals Vital Signs Date Time Temp Pulse Resp B/P (MAP) Pulse Ox O2 Delivery O2 Flow Rate FiO2 01/01/25 21:00 98.7 107 15 130/89 (103) 98 98.7 01/01/25 20:00 Room Air* 0 21 Intake/Output Intake and Output 01/01/25 07:00 Intake Total 6120 ml Output Total 2050 ml Balance 4070 ml Intake Oral 3120 ml IV Total 3000 ml Output Urine Total 2050 ml # Voids 1 # Bowel Movements 3 General Appearance: Alert, Oriented X3, Cooperative, No acute distress HEENT: Atraumatic, PERRLA Lungs: Clear to auscultation, Normal air movement Cardiovascular: Normal S1, Normal S2 Abdomen: Normal bowel sounds, Soft, No tenderness Musculoskeletal: Normal sensory function, Normal motor function Skin: Dry, Intact Psych/Mental Status: Mental status NL, Mood NL Medications Current Medications Medications Dose Ordered Sig/Lazaro Route Start Time Stop Time Status Last Admin Dose Admin Insulin Glargine 15 units DAILY SC 12/30/24 10:00 01/01/25 11:51 15 UNITS Pantoprazole Sodium 40 mg DAILY IV 12/30/24 10:00 01/01/25 11:46 40 MG Ondansetron HCl 4 mg Q4HP PRN IV 12/29/24 23:30 12/30/24 13:42 4 MG Nitroglycerin 0.4 mg Q5MINP PRN SL 12/29/24 23:30 Morphine Sulfate 2 mg Q30M PRN IV 12/29/24 23:30 Potassium Chloride 40 meq/ Sodium Chloride 1,020 ml @ 100 mls/hr [id number] IV 12/30/24 12:00 01/01/25 16:12 100 MLS/HR Nifedipine 60 mg DAILY PO 12/31/24 10:00 01/01/25 11:46 60 MG Labetalol HCl 10 mg Q2HPRN PRN IV 12/30/24 12:00 12/30/24 13:58 10 MG Diagnostic Test (Pha) 1 strip ACHS 12/30/24 17:00 01/01/25 21:39 1 STRIP Insulin Human Regular HS SC 12/30/24 22:00 01/01/25 21:37 8 UNITS Insulin Human Regular AC SC 12/30/24 17:00 01/01/25 12:08 6 UNITS Dextrose 50 ml UD PRN IV 12/30/24 12:30 Sodium Chloride 10 ml Q8HR IV 12/31/24 22:00 01/01/25 21:39 10 ML Gabapentin 300 mg TID PO 01/01/25 18:00 01/01/25 21:32 300 MG Laboratory Results Laboratory Tests 12/31/24 03:37 Urinalysis Test 12/30/24 06:00 Urine Color Light-yellow (Yellow) Urine Clarity Clear (Clear) Urine pH 5.5 (5.0-9.0) Urine Specific [place] 1.013 (1.001-1.035) Urine Protein Negative (Negative) Urine Ketones 4+ (Negative) H Urine Blood Negative /uL (Negative) Urine Nitrite Negative (Negative) Urine Bilirubin Negative (Negative) Urine Urobilinogen Normal mg/dL (Negative) Urine Leukocyte Esterase Negative /uL (Negative) Urine RBC <1 /hpf (0 - 3) Urine Microscopic WBC < 1 /HPF (0-3) Urine Squamous Epithelial Cells Few /hpf (<5) Urine Bacteria None seen /hpf (None Seen) Urine Hyaline Casts Few /lpf (0 - 2) Urine Glucose 4+ mg/dL (Normal) H Microbiology Microbiology Date/Time Source Procedure Growth Status 12/31/24 08:00 Nose MRSA Screen - Final Complete Labs and/or images reviewed: Labs reviewed by me Assessment/Plan Assessment/Plan -diabetic ketoacidosis -juvenile diabetes -hypokalemia -acute kidney injury, vasomotor nephropathy -leukocytosis with out sepsis. Sirs without organ dysfunction -accelerated hypertension Plan: -continuing current management -continuing IV fluids to 0.45 normal saline with 40 mEq of potassium chloride at 100 mL/hour - continue long-acting insulin. Continuing regular insulin sliding scale, a.c./HS . We will follow blood glucose closely. We will give D50 as needed if blood glucose less than 60 -antihypertensive: Nifedipine XL 60 mg p.o. daily. I will restart the patient on gabapentin 300 mg t.i.d. per home dose. This medical document was created using an electronic medical record system with [employer] direct computerized dictation system. Although this document has been carefully reviewed, there may still be some phonetic and typographical errors. These areas are purely typographical due to imperfections of the software programs, and do not reflect any compromise in the patient's medical care. Plan discussed with: Patient My Orders Orders - JEAN PAUL MALIK MD Procedure Category Date Status Time Gabapentin Capsule PHA 01/01/25 In Process (Neurontin Capsule) 18:00 * Endocrinology CONS 01/01/25 Transmitted Consult 19:53 Date of Service: Jan 01, 2025 Billing Provider: JEAN PAUL MALIK MD Common Visit Codes: [id number] INP/OBS CARE(HIGH) JEAN PAUL MALIK MD Jan 01, 2025 23:33
[2025-01-02] VITALS (8 sets, daily range): BP systolic 118–129; BP diastolic 77–90; PULSE 77–119; RESP 14–18; TEMP 98–98.4; O2SAT 98–100
[2025-01-02 08:11] LABS: Alkaline Phosphatase 103 U/L (46-116); Anion Gap 9 (5-15); BUN/Creatinine Ratio 19.5 (10.0-20.0); Bilirubin, Total 0.3 mg/dL (0.2-1.0); Blood Urea Nitrogen 17 mg/dL (9-23); Calcium 9.4 mg/dL (8.7-10.4); Carbon Dioxide 24 mmol/L (20-31); Chloride 104 mmol/L (98-107); Phosphorus 3.3 mg/dL (2.4-5.1); Potassium 4.7 mmol/L (3.5-5.1); Sodium 137 mmol/L (136-145); Total Protein 6.2 g/dL (5.7-8.2)
[2025-01-02 08:12] LABS: Alanine Aminotransferase < 9 U/L (7-40); Aspartate Aminotransferase < 8 U/L (<34); Glucose 350 mg/dL (74-106)
--- NOTE | 2025-01-02 12:00 | DVHINCON2 ---
Date Seen: Jan 02, 2025 Referring Physician Ivette Reason for Consultation V Tach History of Present Illness 34-year-old male with PMH for diabetes, HTN, seizures presents to the hospital with hyperglycemia. Patient found to have DKA and treated accordingly. While on telemetry patient apparently had episode of ventricular tachycardia. Cardiology consulted. Past Medical History As stated above Past Surgical History As stated above Family History: Asthma G8 MOTHER FH: cancer G8 MOTHER Hypercholesterolemia G8 MOTHER Hypertension G8 MOTHER Social History Denies tobacco or illicit drug use, occasional alcohol use. Allergies: Coded Allergies: NO KNOWN ALLERGIES (Unverified , 06/03/22) Home Meds Active Scripts Metronidazole (Metronidazole) 500 Mg Tab, 500 MG PO TID for 5 Days, #15 TAB Prov:DAQUAN NEFF DO 10/24/24 Ondansetron HCl (Ondansetron) 4 Mg Tab, 4 MG PO BID PRN for 30 Days, #60 TAB Prov:MILLY CORRAL [facility] 09/06/24 Pantoprazole Sodium Sesquihydr (Pantoprazole Sodium) 40 Mg Tab, 40 MG PO DAILY for 30 Days, #30 TAB Prov:MILLY CORRAL [facility] 09/06/24 Apixaban Base (ELIQUIS) 5 Mg Tab, 5 MG PO BID for 30 Days, #60 TAB Prov:MILLY CORRAL [facility] 09/06/24 Insulin Glargine (Lantus) 100 Unit/Ml Inj, 28 UNITS SC HS for 30 Days, #30 INJ Prov:MILLY CORRAL [facility] 09/06/24 Sucralfate (CARAFATE SUSP) 1 Gm/10 Ml Ss, 1 GM GT QID@0600,1130,1700,2200 for 30 Days, #120 ML Prov:MILLY CORRAL [facility] 09/06/24 Metoprolol Succinate (Toprol Xl) 50 Mg Tab, 25 MG PO DAILY for 30 Days, #15 TAB Prov:MILLY CORRAL [facility] 09/06/24 Flecainide Acetate (TAMBOCOR TABLET) 50 Mg Tb, 50 MG PO Q12HR for 30 Days, #60 TAB Prov:MILLY CORRAL [facility] 09/06/24 Pantoprazole Sodium Sesquihydr (Pantoprazole Sodium) 40 Mg Tab, 40 MG PO DAILY@0600 for 30 Days, #30 TAB Prov:RIZWANA RODRIGUEZ RESIDENT 12/03/23 Insulin Aspart (Insulin Aspart Flexpen) 100 Unit/Ml Inj, 100 UNIT SC ACHS for 60 Days, #3 INJ Blood sugar 150 to 250: 2 units Blood sugar 251 to 350: 4 units Blood sugar 351 to 400: 6 units Blood sugar 401 and above: 8 units and go to emergency room Prov:COREEN VILLALTA NP 07/05/23 Insulin Regular (Human) (Novolin R) 100 Unit/Ml Inj, 1-15 UNITS SC Q6HPRN PRN for 30 Days, #5 INJ 0 Refills take 1-15 units Q6hr ACHS per sliding scale Prov:VERENA BAUTISTA MD 11/07/21 Atorvastatin Calcium (Lipitor) 20 Mg Tab, 1 TAB PO DAILY, #30 TAB Prov:VERENA BAUTISTA MD 11/07/21 Current Medications Current Medications Medications (Trade) Dose Ordered Sig/Lazaro Route PRN Reason Start Time Stop Time Status Last Admin Gabapentin (Neurontin Capsule) 300 mg TID PO 01/01/25 18:00 01/01/25 21:32 Review of Systems Constitutional: No: Fever, Chills, Sweats, Weakness, Malaise, Other Eyes: No: Pain, Vision change, Conjunctivae inflammation, Eyelid inflammation, Other, Redness ENT: No: Ear pain, Ear discharge, Nose pain, Nose discharge, Nose congestion, Mouth pain, Mouth swelling, Throat pain, Throat swelling, Other Respiratory: No: Cough, Dry, Shortness of breath, SOB with exertion, Wheezing, Hemoptysis, Pleuritic Pain, Sputum, Wheezing, Other Cardiovascular: ; No: Chest Pain Palpitations, Orthopnea, Paroxysmal Noc. Dyspnea, Edema, Lt Headedness, Other Gastrointestinal: No: Nausea, Vomiting, Abdominal Pain, Diarrhea, Constipation, Melena, Hematochezia, Other Genitourinary: No Dysuria, No Frequency, No Incontinence, No Hematuria, No Retention, No Other Musculoskeletal: neck pain; No: other, shoulder pain, arm pain, back pain, hand pain, leg pain, foot pain Skin: No: Rash, Lesions, Jaundice, Bruising, Other Neurological: Other (Dizziness, headache.); No: Weakness, Numbness, Incoordination, Change in speech, Confusion, Seizures Vital Signs Vital Signs Date Time Temp Pulse Resp B/P (MAP) Pulse Ox O2 Delivery O2 Flow Rate FiO2 01/02/25 10:03 129/87 01/02/25 09:00 98.4 94 16 99 98.4 01/02/25 08:00 Room Air* 0 21 Physical Exam General appearance: Patient is well-developed, well-nourished, in no acute distress. HEENT: Exam shows: Normocephalic, atraumatic, PERRLA, EOMI Neck: Supple, no bruits Chest: Equal chest excursion bilaterally. Breath sounds normal-no rales or wheezes. Heart: Rhythm: Regular rate; no murmur or gallop Abdomen: Exam shows: Soft, nontender, nondistended Musculoskeletal: No clubbing, no cyanosis, no lower extremity edema Dermatology: Skin warm, moist. Neurological: Exam shows: Alert and oriented x4, normal speech Available prior records, labs, EKG, rhythm strips reviewed and interpreted Labs/Diagnostic Data Labs Test 01/02/25 11:35 01/02/25 07:40 12/31/24 03:37 12/30/24 06:00 Range/Units POC Glucose 78 70-106 mg/dl Sodium Level 137 136-145 mmol/L Potassium Level 4.7 3.5-5.1 mmol/L Chloride Level 104 98-107 mmol/L Carbon Dioxide Level 24 20-31 mmol/L Anion Gap 9 5-15 Blood Urea Nitrogen 17 9-23 mg/dL Creatinine 0.87 0.700-1.30 mg/dL Glomerular Filtration Rate Calc 116 >90 mL/min BUN/Creatinine Ratio 19.5 10.0-20.0 Serum Glucose 350 #H 74-106 mg/dL Calcium Level 9.4 8.7-10.4 mg/dL Phosphorus Level 3.3 2.4-5.1 mg/dL Magnesium Level 2.0 1.6-2.6 mg/dL Total Bilirubin 0.3 0.2-1.0 mg/dL Aspartate Amino Transferase (AST) < 8 <34 U/L Alanine Aminotransferase (ALT) < 9 7-40 U/L Alkaline Phosphatase 103 46-116 U/L Troponin I High Sensitivity < 3 L </=54 ng/L Total Protein 6.2 5.7-8.2 g/dL Albumin 4.0 3.2-4.8 g/dL Thyroid Stimulating Hormone (TSH) 1.34 0.55-4.78 uIU/mL White Blood Count 4.1 #L 4.4-10.8 10^3/uL Red Blood Count 4.46 L 4.5-5.90 10^6/uL Hemoglobin 8.2 L 13.5-17.5 g/dL Hematocrit 26.3 L 41.0-53.0 % Mean Corpuscular Volume 59.0 L 80.0-100.0 fL Mean Corpuscular Hemoglobin 18.4 L 28.0-32.0 pg Mean Corpuscular Hemoglobin Concent 31.2 L 32.0-36.0 g/dL Red Cell Distribution Width 20.0 H 11.8-14.3 % Platelet Count 138 L 140-450 10^3/uL Mean Platelet Volume 8.0 6.9-10.8 fL Neutrophils (%) (Auto) 75.8 37.0-80.0 % Lymphocytes (%) (Auto) 11.4 10.0-50.0 % Monocytes (%) (Auto) 12.2 H 0.0-12.0 % Eosinophils (%) (Auto) 0.2 0.0-7.0 % Basophils (%) (Auto) 0.4 0.0-2.0 % Neutrophils # (Auto) 3.1 1.6-8.6 10 ^3/uL Lymphocytes # (Auto) 0.5 0.4-5.4 10 ^3/uL Monocytes # (Auto) 0.5 0-1.3 10 ^3/uL Eosinophils # (Auto) 0 0-0.8 10 ^3/uL Basophils # (Auto) 0 0-0.2 10 ^3/uL Nucleated Red Blood Cells 0.1 % Platelet Estimate Adequate Hypochromasia (manual) Marked Microcytosis Marked Urine Color Light-yellow Yellow Urine Clarity Clear Clear Urine pH 5.5 5.0-9.0 Urine Specific [place] 1.013 1.001-1.035 Urine Protein Negative Negative Urine Ketones 4+ H Negative Urine Blood Negative Negative /uL Urine Nitrite Negative Negative Urine Bilirubin Negative Negative Urine Urobilinogen Normal Negative mg/dL Urine Leukocyte Esterase Negative Negative /uL Urine RBC <1 0 - 3 /hpf Urine Microscopic WBC < 1 0-3 /HPF Urine Squamous Epithelial Cells Few <5 /hpf Urine Bacteria None seen None Seen /hpf Urine Hyaline Casts Few 0 - 2 /lpf Urine Glucose 4+ H Normal mg/dL Test 12/30/24 05:54 12/29/24 20:32 12/29/24 20:31 Range/Units Hepatitis B Surface Antigen Negative Negative Hepatitis C Antibody Negative Negative Blood Gas Specimen Type Arterial Blood Gas Sample Site Right radial Blood Gas Patient Temperature 37.0 Arterial Blood Date Drawn [id number] Arterial Blood pH 7.452 H 7.350-7.450 Arterial Blood Partial Pressure CO2 23.2 L 35.0-48.0 mmHg Arterial Blood Partial Pressure O2 88.1 83.0-108.0 mmHg Arterial Blood HCO3 15.8 L 21.0-28.0 mmol/L Arterial Blood Oxygen Saturation 96.1 94.0-98.0 % Arterial Blood Base Excess -6.5 L -2.0-3.0 mmol/L Arterial Blood Oxyhemoglobin 94.8 94.0-98.0 % Arterial Blood Carboxyhemoglobin 1.1 0.5-1.5 % Arterial Blood Methemoglobin 0.3 0.0-1.5 % Baljit Test Modified Blood Gas Total Hemoglobin 11.10 L 13.5-17.5 g/dL Blood Gas Modality Room air FiO2 % 21.0 Serum Osmolality 319 H 278-298 mOsm/kg Beta-Hydroxybutyric Acid > 4.500 H < 0.4 mmol/L Plasma/Serum Blood Alcohol 3.0 <10 mg/dL Microbiology Date/Time Source Procedure Growth Status 12/31/24 08:00 Nose MRSA Screen - Final Complete Assessment * Suspected Arrythmia - patient was apparent ventricular tachycardia. After telemetry in chart review no rhythm strips for review noted. Continue monitoring on telemetry. Monitoring replace electrolytes. Check echo. Check TSH. * HTN - stable on current regimen, continue trending. * Sinus tachycardia - physiologic in nature. Continue telemetry monitoring. TSH normal. Follow up echo. * Diabetic ketoacidosis - resolved, continue management per primary team. * Electrolyte imbalance, hypokalemia - resolved. Continue monitoring electrolytes. Case Discussed with Dr Polanco. No significant arrhythmias noted on review. Patient having intermittent episodes of sinus tachycardia with ambulation. TSH normal. Follow up echo if no significant abnormalities noted, there is no further cardiac work-up indicated at this time. Thank you for allowing us to participate in this patient's care. Will sign off. Critical care, time spent: 41 minutes This medical document was created using an electronic medical record system with voice recognition software and computerized dictation system. Although this document has been carefully reviewed, there might still be some phonetic and typographical errors. Occasional wrong-word or ``sound-alike substitutions may have occurred due to the inherent limitations of voice recognition software. These areas are purely typographical due to imperfections of the software programs and do not reflect any compromise in the patient's medical care. Please read the chart carefully and recognize, using context, where these substitutions have occurred. Thank you for allowing me to participate in the management of this patient. The treatment plan was discussed with and agreed upon by patient/family including requesting consultants and ordering of imaging/procedures. Plan discussed with: Patient NYHA Physical activity limitations: NA Date of Service: Jan 02, 2025 Billing Provider: ABHIJEET BERNARD Cardiology Common Codes: [id number] INP/OBS CARE (High), [id number] CARE 30-74 MIN ABHIJEET BERNARD Jan 02, 2025 11:59
--- NOTE | 2025-01-02 14:15 | DVHPN2 ---
Subjective The patient is seen and examined at bedside. No complaint today. Reviewed: Care Plan, H&P, Labs Changes from previous H/P or p: No Changes General: Per HPI Objective Vitals Vital Signs Date Time Temp Pulse Resp B/P (MAP) Pulse Ox O2 Delivery O2 Flow Rate FiO2 01/02/25 13:00 98.1 77 16 123/90 (101) 100 98.1 01/02/25 08:00 Room Air* 0 21 Intake/Output Intake and Output 01/02/25 07:00 Intake Total 700 ml Output Total 800 ml Balance -100 ml Intake Oral 500 ml IV Total 200 ml Output Urine Total 800 ml General Appearance: Alert, Oriented X3, Cooperative, No acute distress HEENT: Atraumatic, PERRLA Lungs: Clear to auscultation, Normal air movement Cardiovascular: Normal S1, Normal S2 Abdomen: Normal bowel sounds, Soft, No tenderness Musculoskeletal: Normal sensory function, Normal motor function Skin: Dry, Intact Psych/Mental Status: Mental status NL, Mood NL Medications Current Medications Medications Dose Ordered Sig/Lazaro Route Start Time Stop Time Status Last Admin Dose Admin Insulin Glargine 15 units DAILY SC 12/30/24 10:00 01/02/25 12:00 15 UNITS Pantoprazole Sodium 40 mg DAILY IV 12/30/24 10:00 01/02/25 10:04 40 MG Ondansetron HCl 4 mg Q4HP PRN IV 12/29/24 23:30 12/30/24 13:42 4 MG Nitroglycerin 0.4 mg Q5MINP PRN SL 12/29/24 23:30 Morphine Sulfate 2 mg Q30M PRN IV 12/29/24 23:30 Potassium Chloride 40 meq/ Sodium Chloride 1,020 ml @ 100 mls/hr [id number] IV 12/30/24 12:00 01/02/25 13:55 100 MLS/HR Nifedipine 60 mg DAILY PO 12/31/24 10:00 01/02/25 10:03 60 MG Labetalol HCl 10 mg Q2HPRN PRN IV 12/30/24 12:00 12/30/24 13:58 10 MG Diagnostic Test (Pha) 1 strip ACHS 12/30/24 17:00 01/02/25 12:47 1 STRIP Insulin Human Regular HS SC 12/30/24 22:00 01/01/25 21:37 8 UNITS Insulin Human Regular AC SC 12/30/24 17:00 01/02/25 06:35 12 UNITS Dextrose 50 ml UD PRN IV 12/30/24 12:30 Sodium Chloride 10 ml Q8HR IV 12/31/24 22:00 01/02/25 13:32 10 ML Gabapentin 300 mg TID PO 01/01/25 18:00 01/02/25 13:33 300 MG Laboratory Results Laboratory Tests 12/31/24 03:37 01/02/25 07:40 Chemistry Test 01/02/25 07:40 Albumin 4.0 g/dL (3.2-4.8) Calcium Level 9.4 mg/dL (8.7-10.4) Magnesium Level 2.0 mg/dL (1.6-2.6) Phosphorus Level 3.3 mg/dL (2.4-5.1) Total Protein 6.2 g/dL (5.7-8.2) LFT Test 01/02/25 07:40 Alanine Aminotransferase (ALT) < 9 U/L (7-40) Alkaline Phosphatase 103 U/L (46-116) Aspartate Amino Transferase (AST) < 8 U/L (<34) Total Bilirubin 0.3 mg/dL (0.2-1.0) HgA1c, TSH Test 01/02/25 07:40 Thyroid Stimulating Hormone (TSH) 1.34 uIU/mL (0.55-4.78) Urinalysis Test 12/30/24 06:00 Urine Color Light-yellow (Yellow) Urine Clarity Clear (Clear) Urine pH 5.5 (5.0-9.0) Urine Specific [place] 1.013 (1.001-1.035) Urine Protein Negative (Negative) Urine Ketones 4+ (Negative) H Urine Blood Negative /uL (Negative) Urine Nitrite Negative (Negative) Urine Bilirubin Negative (Negative) Urine Urobilinogen Normal mg/dL (Negative) Urine Leukocyte Esterase Negative /uL (Negative) Urine RBC <1 /hpf (0 - 3) Urine Microscopic WBC < 1 /HPF (0-3) Urine Squamous Epithelial Cells Few /hpf (<5) Urine Bacteria None seen /hpf (None Seen) Urine Hyaline Casts Few /lpf (0 - 2) Urine Glucose 4+ mg/dL (Normal) H Microbiology Microbiology Date/Time Source Procedure Growth Status 12/31/24 08:00 Nose MRSA Screen - Final Complete Labs and/or images reviewed: Labs reviewed by me Assessment/Plan Assessment/Plan -diabetic ketoacidosis -juvenile diabetes -hypokalemia -acute kidney injury, vasomotor nephropathy -leukocytosis with out sepsis. Sirs without organ dysfunction -accelerated hypertension Plan: -continuing current management -continuing IV fluids to 0.45 normal saline with 40 mEq of potassium chloride at 100 mL/hour - continue long-acting insulin. Continuing regular insulin sliding scale, a.c./HS . We will follow blood glucose closely. We will give D50 as needed if blood glucose less than 60 -antihypertensive: Nifedipine XL 60 mg p.o. daily -endocrinology consulted This medical document was created using an electronic medical record system with [id number] direct computerized dictation system. Although this document has been carefully reviewed, there may still be some phonetic and typographical errors. These areas are purely typographical due to imperfections of the software programs, and do not reflect any compromise in the patient's medical care. Plan discussed with: Patient My Orders Orders - JEAN PAUL MALIK MD Procedure Category Date Status Time Gabapentin Capsule PHA 01/01/25 In Process (Neurontin Capsule) 18:00 * Endocrinology CONS 01/01/25 Transmitted Consult 19:53 Date of Service: Jan 02, 2025 Billing Provider: JEAN PAUL MALIK MD Common Visit Codes: [id number] INP/OBS CARE(HIGH) JEAN PAUL MALIK MD Jan 02, 2025 14:15
--- NOTE | 2025-01-02 23:22 | DVHINCON2 ---
Date Seen: Jan 02, 2025 Referring Physician Ivette Reason for Consultation V Tach History of Present Illness This is a 34-year-old male with a PMH of diabetes, HTN, seizures presents to the ED with complaints of elevated blood sugar readings. Patient found to have DKA and treated accordingly. While on telemetry patient apparently had episode of ventricular tachycardia. Cardiology consulted. Chest x-ray dated 12/29 showed N AD. Past Medical History As stated above Past Surgical History As stated above Family History: Asthma G8 MOTHER FH: cancer G8 MOTHER Hypercholesterolemia G8 MOTHER Hypertension G8 MOTHER Allergies: Coded Allergies: NO KNOWN ALLERGIES (Unverified , 06/03/22) Home Meds Active Scripts Metronidazole (Metronidazole) 500 Mg Tab, 500 MG PO TID for 5 Days, #15 TAB Prov:DAQUAN NEFF DO 10/24/24 Ondansetron HCl (Ondansetron) 4 Mg Tab, 4 MG PO BID PRN for 30 Days, #60 TAB Prov:MILLY CORRAL 09/06/24 Pantoprazole Sodium Sesquihydr (Pantoprazole Sodium) 40 Mg Tab, 40 MG PO DAILY for 30 Days, #30 TAB Prov:MILLY CORRAL 09/06/24 Apixaban Base (ELIQUIS) 5 Mg Tab, 5 MG PO BID for 30 Days, #60 TAB Prov:MILLY CORRAL 09/06/24 Insulin Glargine (Lantus) 100 Unit/Ml Inj, 28 UNITS SC HS for 30 Days, #30 INJ Prov:MILLY CORRAL 09/06/24 Sucralfate (CARAFATE SUSP) 1 Gm/10 Ml Ss, 1 GM GT QID@0600,1130,1700,2200 for 30 Days, #120 ML Prov:MILLY CORRAL 09/06/24 Metoprolol Succinate (Toprol Xl) 50 Mg Tab, 25 MG PO DAILY for 30 Days, #15 TAB Prov:MILLY CORRAL 09/06/24 Flecainide Acetate (TAMBOCOR TABLET) 50 Mg Tb, 50 MG PO Q12HR for 30 Days, #60 TAB Prov:MILLY CORRAL 09/06/24 Pantoprazole Sodium Sesquihydr (Pantoprazole Sodium) 40 Mg Tab, 40 MG PO DAILY@0600 for 30 Days, #30 TAB Prov:RIZWANA RODRIGUEZ RESIDENT 12/03/23 Insulin Aspart (Insulin Aspart Flexpen) 100 Unit/Ml Inj, 100 UNIT SC ACHS for 60 Days, #3 INJ Blood sugar 150 to 250: 2 units Blood sugar 251 to 350: 4 units Blood sugar 351 to 400: 6 units Blood sugar 401 and above: 8 units and go to emergency room Prov:COREEN VILLALTA NP 07/05/23 Insulin Regular (Human) (Novolin R) 100 Unit/Ml Inj, 1-15 UNITS SC Q6HPRN PRN for 30 Days, #5 INJ 0 Refills take 1-15 units Q6hr ACHS per sliding scale Prov:VERENA BAUTISTA MD 11/07/21 Atorvastatin Calcium (Lipitor) 20 Mg Tab, 1 TAB PO DAILY, #30 TAB Prov:VERENA BAUTISTA MD 11/07/21 Current Medications Current Medications Medications (Trade) Dose Ordered Sig/Lazaro Route PRN Reason Start Time Stop Time Status Last Admin Gabapentin (Neurontin Capsule) 300 mg TID PO 01/01/25 18:00 01/02/25 13:33 Review of Systems Constitutional: No: Fever, Chills, Sweats, Weakness, Malaise, Other Eyes: No: Pain, Vision change, Conjunctivae inflammation, Eyelid inflammation, Other, Redness ENT: No: Ear pain, Ear discharge, Nose pain, Nose discharge, Nose congestion, Mouth pain, Mouth swelling, Throat pain, Throat swelling, Other Respiratory: No: Cough, Dry, Shortness of breath, SOB with exertion, Wheezing, Hemoptysis, Pleuritic Pain, Sputum, Wheezing, Other Cardiovascular: ; No: Chest Pain Palpitations, Orthopnea, Paroxysmal Noc. Dyspnea, Edema, Lt Headedness, Other Gastrointestinal: No: Nausea, Vomiting, Abdominal Pain, Diarrhea, Constipation, Melena, Hematochezia, Other Genitourinary: No Dysuria, No Frequency, No Incontinence, No Hematuria, No Retention, No Other Musculoskeletal: neck pain; No: other, shoulder pain, arm pain, back pain, hand pain, leg pain, foot pain Skin: No: Rash, Lesions, Jaundice, Bruising, Other Neurological: Other (Dizziness, headache.); No: Weakness, Numbness, Incoordination, Change in speech, Confusion, Seizures Vital Signs Vital Signs Date Time Temp Pulse Resp B/P (MAP) Pulse Ox O2 Delivery O2 Flow Rate FiO2 01/02/25 16:49 98.0 80 17 129/79 (96) 100 98.0 01/02/25 08:00 Room Air* 0 21 Physical Exam GENERAL: Alert and oriented x 3. No acute distress. EYES: PERRL, EOMI. Anicteric. HENT: Moist mucous membranes. LUNGS: Clear to auscultation bilaterally. CARDIOVASCULAR: Regular rate and rhythm. ABDOMEN: Soft, nontender and nondistended. EXTREMITIES: No edema. NEUROLOGIC: No focal neurological deficits. SKIN: Warm, dry. Labs/Diagnostic Data Labs Test 01/02/25 11:35 01/02/25 07:40 12/31/24 03:37 12/30/24 06:00 Range/Units POC Glucose 78 70-106 mg/dl Sodium Level 137 136-145 mmol/L Potassium Level 4.7 3.5-5.1 mmol/L Chloride Level 104 98-107 mmol/L Carbon Dioxide Level 24 20-31 mmol/L Anion Gap 9 5-15 Blood Urea Nitrogen 17 9-23 mg/dL Creatinine 0.87 0.700-1.30 mg/dL Glomerular Filtration Rate Calc 116 >90 mL/min BUN/Creatinine Ratio 19.5 10.0-20.0 Serum Glucose 350 #H 74-106 mg/dL Calcium Level 9.4 8.7-10.4 mg/dL Phosphorus Level 3.3 2.4-5.1 mg/dL Magnesium Level 2.0 1.6-2.6 mg/dL Total Bilirubin 0.3 0.2-1.0 mg/dL Aspartate Amino Transferase (AST) < 8 <34 U/L Alanine Aminotransferase (ALT) < 9 7-40 U/L Alkaline Phosphatase 103 46-116 U/L Troponin I High Sensitivity < 3 L </=54 ng/L Total Protein 6.2 5.7-8.2 g/dL Albumin 4.0 3.2-4.8 g/dL Thyroid Stimulating Hormone (TSH) 1.34 0.55-4.78 uIU/mL White Blood Count 4.1 #L 4.4-10.8 10^3/uL Red Blood Count 4.46 L 4.5-5.90 10^6/uL Hemoglobin 8.2 L 13.5-17.5 g/dL Hematocrit 26.3 L 41.0-53.0 % Mean Corpuscular Volume 59.0 L 80.0-100.0 fL Mean Corpuscular Hemoglobin 18.4 L 28.0-32.0 pg Mean Corpuscular Hemoglobin Concent 31.2 L 32.0-36.0 g/dL Red Cell Distribution Width 20.0 H 11.8-14.3 % Platelet Count 138 L 140-450 10^3/uL Mean Platelet Volume 8.0 6.9-10.8 fL Neutrophils (%) (Auto) 75.8 37.0-80.0 % Lymphocytes (%) (Auto) 11.4 10.0-50.0 % Monocytes (%) (Auto) 12.2 H 0.0-12.0 % Eosinophils (%) (Auto) 0.2 0.0-7.0 % Basophils (%) (Auto) 0.4 0.0-2.0 % Neutrophils # (Auto) 3.1 1.6-8.6 10 ^3/uL Lymphocytes # (Auto) 0.5 0.4-5.4 10 ^3/uL Monocytes # (Auto) 0.5 0-1.3 10 ^3/uL Eosinophils # (Auto) 0 0-0.8 10 ^3/uL Basophils # (Auto) 0 0-0.2 10 ^3/uL Nucleated Red Blood Cells 0.1 % Platelet Estimate Adequate Hypochromasia (manual) Marked Microcytosis Marked Urine Color Light-yellow Yellow Urine Clarity Clear Clear Urine pH 5.5 5.0-9.0 Urine Specific [place] 1.013 1.001-1.035 Urine Protein Negative Negative Urine Ketones 4+ H Negative Urine Blood Negative Negative /uL Urine Nitrite Negative Negative Urine Bilirubin Negative Negative Urine Urobilinogen Normal Negative mg/dL Urine Leukocyte Esterase Negative Negative /uL Urine RBC <1 0 - 3 /hpf Urine Microscopic WBC < 1 0-3 /HPF Urine Squamous Epithelial Cells Few <5 /hpf Urine Bacteria None seen None Seen /hpf Urine Hyaline Casts Few 0 - 2 /lpf Urine Glucose 4+ H Normal mg/dL Test 12/30/24 05:54 12/29/24 20:32 12/29/24 20:31 Range/Units Hepatitis B Surface Antigen Negative Negative Hepatitis C Antibody Negative Negative Blood Gas Specimen Type Arterial Blood Gas Sample Site Right radial Blood Gas Patient Temperature 37.0 Arterial Blood Date Drawn [id number] Arterial Blood pH 7.452 H 7.350-7.450 Arterial Blood Partial Pressure CO2 23.2 L 35.0-48.0 mmHg Arterial Blood Partial Pressure O2 88.1 83.0-108.0 mmHg Arterial Blood HCO3 15.8 L 21.0-28.0 mmol/L Arterial Blood Oxygen Saturation 96.1 94.0-98.0 % Arterial Blood Base Excess -6.5 L -2.0-3.0 mmol/L Arterial Blood Oxyhemoglobin 94.8 94.0-98.0 % Arterial Blood Carboxyhemoglobin 1.1 0.5-1.5 % Arterial Blood Methemoglobin 0.3 0.0-1.5 % Baljit Test Modified Blood Gas Total Hemoglobin 11.10 L 13.5-17.5 g/dL Blood Gas Modality Room air FiO2 % 21.0 Serum Osmolality 319 H 278-298 mOsm/kg Beta-Hydroxybutyric Acid > 4.500 H < 0.4 mmol/L Plasma/Serum Blood Alcohol 3.0 <10 mg/dL Microbiology Date/Time Source Procedure Growth Status 12/31/24 08:00 Nose MRSA Screen - Final Complete Assessment Suspected Arrhythmia. HTN. Sinus tachycardia. Diabetic ketoacidosis. Hypokalemia. Plan/Recommendation I agree with your ongoing assessment and care of plan. Patient has been seen by Nomi Campo NP on my behalf, him and I discussed the plan with the patient. Continue monitoring on telemetry. No significant arrhythmias noted on review. Patient having intermittent episodes of sinus tachycardia with ambulation. TSH normal. Follow up echo. Continue monitoring electrolytes. Nifedipine, Labetalol. GI prophylactics. Morphine for pain management. Additional plan as per the hospital course. Plan discussed with: Patient NYHA Physical activity limitations: NA Date of Service: Jan 02, 2025 Billing Provider: ADDY RG MD Cardiology Common Codes: [id number] INP/OBS CARE (High) Cardiology Consultation Codes: [id number] CONSULT <45MIN ADDY RG MD Jan 02, 2025 17:01
[2025-01-03 01:00] VITALS: BP 126/86; PULSE 85; RESP 18; TEMP 97.6; O2SAT 100
[2025-01-03 05:01] VITALS: BP 120/81; PULSE 80; RESP 18; TEMP 98; O2SAT 100
[2025-01-03 08:00] VITALS: PULSE 81
[2025-01-03 09:00] VITALS: BP 125/91; PULSE 91; RESP 18; TEMP 98.5; O2SAT 100
[2025-01-03 13:00] VITALS: BP 118/80; PULSE 90; RESP 19; TEMP 98.8; O2SAT 100
--- NOTE | 2025-01-03 14:13 | DVHINCON2 ---
Date of service: Jan 03, 2025 History of Present Illness 34yo M w/ hx of type II DM, seizures, atrial fibrillation, EtOH use disorder. Patient presented with few days of progressively worsening generalized weakness, polyuria, polydipsia. Endorses appropriate compliance with his insulin regimen. Denies any recent illnesses. Upon presentation patient hemodynamically stable. Slightly tachycardic to 118 bpm. Labs notable for WBC 11.2, hemoglobin 10.4, ABG showing 7.45/23/88. Sodium 125, potassium 3.1, chloride 74, CO2 16, anion gap 35, blood glucose 557. Beta hydroxybutyrate greater than 4.5. A1c 10.2%. Patient was started on basal bolus insulin therapy and admitted for further management. DKA resolved over the next 24 hours as of 12/30. Since then patient has been maintained on glargine 15 units daily, regular insulin sliding scale with meals and at bedtime Patient at home is maintained on Lantus 22 units daily, aspart sliding scale 2 hours after meals. Blood glucose generally ranges from 200-300 mg/dL. Notably patient has had recurrent hospitalizations for DKA. Past Medical History Seizures type II DM Afib EtOH use d/o Family History: Asthma G8 MOTHER FH: cancer G8 MOTHER Hypercholesterolemia G8 MOTHER Hypertension G8 MOTHER Allergies: Coded Allergies: NO KNOWN ALLERGIES (Unverified , 06/03/22) Home Meds Active Scripts Metronidazole (Metronidazole) 500 Mg Tab, 500 MG PO TID for 5 Days, #15 TAB Prov:DAQUAN NEFF DO 10/24/24 Ondansetron HCl (Ondansetron) 4 Mg Tab, 4 MG PO BID PRN for 30 Days, #60 TAB Prov:MILLY CORRAL RESIDENT 09/06/24 Pantoprazole Sodium Sesquihydr (Pantoprazole Sodium) 40 Mg Tab, 40 MG PO DAILY for 30 Days, #30 TAB Prov:MILLY CORRAL RESIDENT 09/06/24 Apixaban Base (ELIQUIS) 5 Mg Tab, 5 MG PO BID for 30 Days, #60 TAB Prov:MILLY CORRAL [facility] 09/06/24 Insulin Glargine (Lantus) 100 Unit/Ml Inj, 28 UNITS SC HS for 30 Days, #30 INJ Prov:MILLY CORRAL [facility] 09/06/24 Sucralfate (CARAFATE SUSP) 1 Gm/10 Ml Ss, 1 GM GT QID@0600,1130,1700,2200 for 30 Days, #120 ML Prov:MILLY CORRAL RESIDENT 09/06/24 Metoprolol Succinate (Toprol Xl) 50 Mg Tab, 25 MG PO DAILY for 30 Days, #15 TAB Prov:MILLY CORRAL RESIDENT 09/06/24 Flecainide Acetate (TAMBOCOR TABLET) 50 Mg Tb, 50 MG PO Q12HR for 30 Days, #60 TAB Prov:MILLY CORRAL RESIDENT 09/06/24 Pantoprazole Sodium Sesquihydr (Pantoprazole Sodium) 40 Mg Tab, 40 MG PO DAILY@0600 for 30 Days, #30 TAB Prov:RIZWANA RODRIGUEZ RESIDENT 12/03/23 Insulin Aspart (Insulin Aspart Flexpen) 100 Unit/Ml Inj, 100 UNIT SC ACHS for 60 Days, #3 INJ Blood sugar 150 to 250: 2 units Blood sugar 251 to 350: 4 units Blood sugar 351 to 400: 6 units Blood sugar 401 and above: 8 units and go to emergency room Prov:COREEN VILLALTA FILLETER 07/05/23 Insulin Regular (Human) (Novolin R) 100 Unit/Ml Inj, 1-15 UNITS SC Q6HPRN PRN for 30 Days, #5 INJ 0 Refills take 1-15 units Q6hr ACHS per sliding scale Prov:VERENA BAUTISTA MD 11/07/21 Atorvastatin Calcium (Lipitor) 20 Mg Tab, 1 TAB PO DAILY, #30 TAB Prov:VERENA BAUTISTA MD 11/07/21 Review of Systems Negative except HPI Vital Signs Vital Signs Date Time Temp Pulse Resp B/P (MAP) Pulse Ox O2 Delivery O2 Flow Rate FiO2 01/03/25 13:00 98.8 90 19 118/80 (93) 100 98.8 01/03/25 08:00 Room Air* 0 21 Physical Exam Gen - no acute distress HEENT - no thyromegaly CV - RRR, no m/r/g Resp - CTAB Ext - no edema Labs/Diagnostic Data Labs Test 01/03/25 12:20 01/03/25 10:43 01/02/25 07:40 12/31/24 03:37 Range/Units Hemoglobin A1c 10.2 H <5.7 % A1C POC Glucose 271 H 70-106 mg/dl Sodium Level 137 136-145 mmol/L Potassium Level 4.7 3.5-5.1 mmol/L Chloride Level 104 98-107 mmol/L Carbon Dioxide Level 24 20-31 mmol/L Anion Gap 9 5-15 Blood Urea Nitrogen 17 9-23 mg/dL Creatinine 0.87 0.700-1.30 mg/dL Glomerular Filtration Rate Calc 116 >90 mL/min BUN/Creatinine Ratio 19.5 10.0-20.0 Serum Glucose 350 #H 74-106 mg/dL Calcium Level 9.4 8.7-10.4 mg/dL Phosphorus Level 3.3 2.4-5.1 mg/dL Magnesium Level 2.0 1.6-2.6 mg/dL Total Bilirubin 0.3 0.2-1.0 mg/dL Aspartate Amino Transferase (AST) < 8 <34 U/L Alanine Aminotransferase (ALT) < 9 7-40 U/L Alkaline Phosphatase 103 46-116 U/L Troponin I High Sensitivity < 3 L </=54 ng/L Total Protein 6.2 5.7-8.2 g/dL Albumin 4.0 3.2-4.8 g/dL Thyroid Stimulating Hormone (TSH) 1.34 0.55-4.78 uIU/mL White Blood Count 4.1 #L 4.4-10.8 10^3/uL Red Blood Count 4.46 L 4.5-5.90 10^6/uL Hemoglobin 8.2 L 13.5-17.5 g/dL Hematocrit 26.3 L 41.0-53.0 % Mean Corpuscular Volume 59.0 L 80.0-100.0 fL Mean Corpuscular Hemoglobin 18.4 L 28.0-32.0 pg Mean Corpuscular Hemoglobin Concent 31.2 L 32.0-36.0 g/dL Red Cell Distribution Width 20.0 H 11.8-14.3 % Platelet Count 138 L 140-450 10^3/uL Mean Platelet Volume 8.0 6.9-10.8 fL Neutrophils (%) (Auto) 75.8 37.0-80.0 % Lymphocytes (%) (Auto) 11.4 10.0-50.0 % Monocytes (%) (Auto) 12.2 H 0.0-12.0 % Eosinophils (%) (Auto) 0.2 0.0-7.0 % Basophils (%) (Auto) 0.4 0.0-2.0 % Neutrophils # (Auto) 3.1 1.6-8.6 10 ^3/uL Lymphocytes # (Auto) 0.5 0.4-5.4 10 ^3/uL Monocytes # (Auto) 0.5 0-1.3 10 ^3/uL Eosinophils # (Auto) 0 0-0.8 10 ^3/uL Basophils # (Auto) 0 0-0.2 10 ^3/uL Nucleated Red Blood Cells 0.1 % Platelet Estimate Adequate Hypochromasia (manual) Marked Microcytosis Marked Test 12/30/24 06:00 12/30/24 05:54 12/29/24 20:32 12/29/24 20:31 Range/Units Urine Color Light-yellow Yellow Urine Clarity Clear Clear Urine pH 5.5 5.0-9.0 Urine Specific [place] 1.013 1.001-1.035 Urine Protein Negative Negative Urine Ketones 4+ H Negative Urine Blood Negative Negative /uL Urine Nitrite Negative Negative Urine Bilirubin Negative Negative Urine Urobilinogen Normal Negative mg/dL Urine Leukocyte Esterase Negative Negative /uL Urine RBC <1 0 - 3 /hpf Urine Microscopic WBC < 1 0-3 /HPF Urine Squamous Epithelial Cells Few <5 /hpf Urine Bacteria None seen None Seen /hpf Urine Hyaline Casts Few 0 - 2 /lpf Urine Glucose 4+ H Normal mg/dL Hepatitis B Surface Antigen Negative Negative Hepatitis C Antibody Negative Negative Blood Gas Specimen Type Arterial Blood Gas Sample Site Right radial Blood Gas Patient Temperature 37.0 Arterial Blood Date Drawn [id number] Arterial Blood pH 7.452 H 7.350-7.450 Arterial Blood Partial Pressure CO2 23.2 L 35.0-48.0 mmHg Arterial Blood Partial Pressure O2 88.1 83.0-108.0 mmHg Arterial Blood HCO3 15.8 L 21.0-28.0 mmol/L Arterial Blood Oxygen Saturation 96.1 94.0-98.0 % Arterial Blood Base Excess -6.5 L -2.0-3.0 mmol/L Arterial Blood Oxyhemoglobin 94.8 94.0-98.0 % Arterial Blood Carboxyhemoglobin 1.1 0.5-1.5 % Arterial Blood Methemoglobin 0.3 0.0-1.5 % Baljit Test Modified Blood Gas Total Hemoglobin 11.10 L 13.5-17.5 g/dL Blood Gas Modality Room air FiO2 % 21.0 Serum Osmolality 319 H 278-298 mOsm/kg Beta-Hydroxybutyric Acid > 4.500 H < 0.4 mmol/L Plasma/Serum Blood Alcohol 3.0 <10 mg/dL Microbiology Date/Time Source Procedure Growth Status 12/31/24 08:00 Nose MRSA Screen - Final Complete Assessment 1. Uncontrolled type 2 diabetes mellitus with hyperglycemia 2. Atrial fibrillation 3. Alcohol use disorder Longstanding history of uncontrolled dysglycemia diagnosed at age 27 with multiple hospitalizations for DKA. Etiology likely multifactorial from alcohol use, poor medication compliance. Will optimize basal bolus insulin regimen and provide education prior to discharge. Increase glargine to 20 units daily Start scheduled lispro 6 units prior to meals Start low intensity correctional lispro with meals and at bedtime [place]-pfud blood glucose with meals and at bedtime Hypoglycemia protocol Education was provided for patient to inject prandial insulin 15 minutes prior to meals, carbohydrate controlled diet. Plan discussed with: Patient DORY BUNDY MD Jan 03, 2025 14:13
[2025-01-03] MEDS ORDERED: DEXTROSE (50%) 50ML SYRG IV PRN (14:15)
--- NOTE | 2025-01-03 14:32 | ECG ---
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
--- NOTE | 2025-01-03 14:33 | DVHDS2 ---
Discharge Summary Date of Admission Dec 29, 2024 at 23:19 Date of Discharge: Jan 03, 2025 Admitting Diagnosis DKA Labs/Diagnostic Data: Laboratory Results Test 01/03/25 12:20 01/03/25 10:43 01/02/25 07:40 12/31/24 03:37 Hemoglobin A1c 10.2 % A1C (<5.7) POC Glucose 271 mg/dl (70-106) Sodium Level 137 mmol/L (136-145) Potassium Level 4.7 mmol/L (3.5-5.1) Chloride Level 104 mmol/L (98-107) Carbon Dioxide Level 24 mmol/L (20-31) Anion Gap 9 (5-15) Blood Urea Nitrogen 17 mg/dL (9-23) Creatinine 0.87 mg/dL (0.700-1.30) Glomerular Filtration Rate Calc 116 mL/min (>90) BUN/Creatinine Ratio 19.5 (10.0-20.0) Serum Glucose 350 mg/dL (74-106) Calcium Level 9.4 mg/dL (8.7-10.4) Phosphorus Level 3.3 mg/dL (2.4-5.1) Magnesium Level 2.0 mg/dL (1.6-2.6) Total Bilirubin 0.3 mg/dL (0.2-1.0) Aspartate Amino Transferase (AST) < 8 U/L (<34) Alanine Aminotransferase (ALT) < 9 U/L (7-40) Alkaline Phosphatase 103 U/L (46-116) Troponin I High Sensitivity < 3 ng/L (</=54) Total Protein 6.2 g/dL (5.7-8.2) Albumin 4.0 g/dL (3.2-4.8) Thyroid Stimulating Hormone (TSH) 1.34 uIU/mL (0.55-4.78) White Blood Count 4.1 10^3/uL (4.4-10.8) Red Blood Count 4.46 10^6/uL (4.5-5.90) Hemoglobin 8.2 g/dL (13.5-17.5) Hematocrit 26.3 % (41.0-53.0) Mean Corpuscular Volume 59.0 fL (80.0-100.0) Mean Corpuscular Hemoglobin 18.4 pg (28.0-32.0) Mean Corpuscular Hemoglobin Concent 31.2 g/dL (32.0-36.0) Red Cell Distribution Width 20.0 % (11.8-14.3) Platelet Count 138 10^3/uL (140-450) Mean Platelet Volume 8.0 fL (6.9-10.8) Neutrophils (%) (Auto) 75.8 % (37.0-80.0) Lymphocytes (%) (Auto) 11.4 % (10.0-50.0) Monocytes (%) (Auto) 12.2 % (0.0-12.0) Eosinophils (%) (Auto) 0.2 % (0.0-7.0) Basophils (%) (Auto) 0.4 % (0.0-2.0) Neutrophils # (Auto) 3.1 10 ^3/uL (1.6-8.6) Lymphocytes # (Auto) 0.5 10 ^3/uL (0.4-5.4) Monocytes # (Auto) 0.5 10 ^3/uL (0-1.3) Eosinophils # (Auto) 0 10 ^3/uL (0-0.8) Basophils # (Auto) 0 10 ^3/uL (0-0.2) Nucleated Red Blood Cells 0.1 % Platelet Estimate Adequate Hypochromasia (manual) Marked Microcytosis Marked Test 12/30/24 06:00 12/30/24 05:54 12/29/24 20:32 12/29/24 20:31 Urine Color Light-yellow (Yellow) Urine Clarity Clear (Clear) Urine pH 5.5 (5.0-9.0) Urine Specific [place] 1.013 (1.001-1.035) Urine Protein Negative (Negative) Urine Ketones 4+ (Negative) Urine Blood Negative /uL (Negative) Urine Nitrite Negative (Negative) Urine Bilirubin Negative (Negative) Urine Urobilinogen Normal mg/dL (Negative) Urine Leukocyte Esterase Negative /uL (Negative) Urine RBC <1 /hpf (0 - 3) Urine Microscopic WBC < 1 /HPF (0-3) Urine Squamous Epithelial Cells Few /hpf (<5) Urine Bacteria None seen /hpf (None Seen) Urine Hyaline Casts Few /lpf (0 - 2) Urine Glucose 4+ mg/dL (Normal) Hepatitis B Surface Antigen Negative (Negative) Hepatitis C Antibody Negative (Negative) Blood Gas Specimen Type Arterial Blood Gas Sample Site Right radial Blood Gas Patient Temperature 37.0 Arterial Blood Date Drawn [id number] Arterial Blood pH 7.452 (7.350-7.450) Arterial Blood Partial Pressure CO2 23.2 mmHg (35.0-48.0) Arterial Blood Partial Pressure O2 88.1 mmHg (83.0-108.0) Arterial Blood HCO3 15.8 mmol/L (21.0-28.0) Arterial Blood Oxygen Saturation 96.1 % (94.0-98.0) Arterial Blood Base Excess -6.5 mmol/L (-2.0-3.0) Arterial Blood Oxyhemoglobin 94.8 % (94.0-98.0) Arterial Blood Carboxyhemoglobin 1.1 % (0.5-1.5) Arterial Blood Methemoglobin 0.3 % (0.0-1.5) Baljit Test Modified Blood Gas Total Hemoglobin 11.10 g/dL (13.5-17.5) Blood Gas Modality Room air FiO2 % 21.0 Serum Osmolality 319 mOsm/kg (278-298) Beta-Hydroxybutyric Acid > 4.500 mmol/L (< 0.4) Plasma/Serum Blood Alcohol 3.0 mg/dL (<10) Other Laboratory Tests 01/02/25 07:40 12/31/24 03:37 Brief Hx & Hospital Course: History of Present Illness 34-year-old male presents for evaluation of hyperglycemia. Patient reports a one day history of significant polyuria and polydipsia. He also reports his blood sugars reading high. He states being compliant with his medications. Course of hospitalization: Patient was found to be in diabetic ketoacidosis. Patient was treated with insulin drip per protocol, aggressive IV hydration, which was then transitioned to long-acting insulin with regular insulin sliding scale. Patient did have a run of nonsustained VT. Patient was given IV magnesium. Cardiology consultation was placed. No further recommendations were placed. Patient also had endocrinology consultation. Patient has been normal sinus rhythm with controlled blood sugars. Patient will be discharged home and follow up with the discharge Clinic in one week. Patient will also attempt to follow up with his PCP in 1-2 weeks and obtain referral to endocrinology given his multiple admissions to the hospital. Patient was agreeable with discharge plan. All questions answered. Physical examination General: Alert and Oriented x3. No acute distress. Well-nourished. Eyes: EOMI. Anicteric. HENT: Moist mucous membranes. Lungs: Clear to auscultation bilaterally. No accessory muscle use. Cardiovascular: Regular rate and rhythm. No murmur. No JVD. Abdomen: Soft, non-tender and non-distended. No palpable masses. Extremities: No edema. Non-tender. Skin: No rashes or lesions. Warm. Neurologic: No focal neurological deficits. CN II-XII grossly intact, but not individually tested. Psychiatric: Cooperative. Appropriate mood and affect. Total time spent with patient discussing and formulating plan of care: 35 minutes. This medical document was created using an electronic medical record system with [employer] dictation system. Although this document has been carefully reviewed, there may still be some phonetic and typographical errors. These areas are purely typographical due to imperfections of the software programs, and do not reflect any compromise in the patient's medical care. Consults/Reason for consult Cardiology: Nonsustained VT Endocrinology: Multiple admissions for diabetes mellitus, DKA Condition at Discharge: Fair Final Diagnosis/Problems List DKA Secondary diagnosis: -Acute kidney injury, vasomotor nephropathy -history of alcoholism -nonsustained VT -hypokalemia Discharge Disposition: Home Discharge Instruct/Medications Diet: Consistent carbohydrate Activity: No Restrictions, As Tolerated Follow Up/Referral: Discharge Clinic in one week Follow up with PCP in 1-2 weeks Medications: Continue all home medications 36 Discharge Statement: "Patient was advised to return to the ER or call 911 if any headaches, dizziness, shortness of breath, chest pain, abdominal pain, bleeding, fevers, or worsening of medical condition. Patient was counseled about treatment plan, medications, possible side effects, patientverbalized understanding. All questions were answered to the best of my ability. This discharge took greater then 30 minutes in planning, reviewing documentation, counseling the patient, and discussing with other team members." ASSESSMENT ASSESSMENT Assessment DKA Date of Service: Jan 03, 2025 Billing Provider: COREEN VILLALTA NP Common Visit Codes: 17587-TOC/OBS DISCH DAY >30min COREEN VILLALTA NP Jan 03, 2025 14:33
--- NOTE | 2025-01-03 14:35 | DVHCONRES ---
Date Seen: Jan 03, 2025 Resident Creating Document: MARIBEL ABREU RESIDENT Reason for Consultation DKA History of Present Illness 34-year-old male patient with hypertension, diabetes mellitus (likely type 1 DM), paroxysmal AFib, alcoholic use disorder, previous admissions for acute pancreatitis with complaints of generalized fatigue acidosis with nausea and shortness of breath. Presenting to the ED, patient had a blood glucose level 557, found to be in DKA. patient was treated with subcutaneous insulin. Patient is currently mentioning of improvement in his symptoms. Patient takes insulin glargine 22 units in the morning and insulin aspart 2 hours post meal. Patient mentioned that his average blood glucose remains between 250-350. Patient does not have an estimator project manager and his diabetes is managed by primary care physician. He has been hospitalized multiple times for DKA and alcoholic pancreatitis. He denied any recent viral infection or any family contact with a sick person Past medical history hypertension, diabetes mellitus (likely type 1 DM), paroxysmal AFib, alcoholic use disorder, previous admissions for acute pancreatitis Past surgical history No recent surgery Medication history Insulin glargine, aspart Social history Patient consumes alcohol, eight beers 2 times in a week and previously was consuming heavy alcohol mode cut three Richie's every other day Denied smoking, marijuana, any other drug intake Family history "Stomach cancer and heart issues" Allergic history No known allergies Past Medical History As per HPI Family History: Asthma G8 MOTHER FH: cancer G8 MOTHER Hypercholesterolemia G8 MOTHER Hypertension G8 MOTHER Allergies: Coded Allergies: NO KNOWN ALLERGIES (Unverified , 06/03/22) Home Meds Active Scripts Metronidazole (Metronidazole) 500 Mg Tab, 500 MG PO TID for 5 Days, #15 TAB Prov:DAQUAN NEFF DO 10/24/24 Ondansetron HCl (Ondansetron) 4 Mg Tab, 4 MG PO BID PRN for 30 Days, #60 TAB Prov:MILLY CORRAL RESIDENT 09/06/24 Pantoprazole Sodium Sesquihydr (Pantoprazole Sodium) 40 Mg Tab, 40 MG PO DAILY for 30 Days, #30 TAB Prov:MILLY CORRAL RESIDENT 09/06/24 Apixaban Base (ELIQUIS) 5 Mg Tab, 5 MG PO BID for 30 Days, #60 TAB Prov:MILLY CORRAL RESIDENT 09/06/24 Insulin Glargine (Lantus) 100 Unit/Ml Inj, 28 UNITS SC HS for 30 Days, #30 INJ Prov:MILLY CORRAL RESIDENT 09/06/24 Sucralfate (CARAFATE SUSP) 1 Gm/10 Ml Ss, 1 GM GT QID@0600,1130,1700,2200 for 30 Days, #120 ML Prov:MILLY CORRAL [facility] 09/06/24 Metoprolol Succinate (Toprol Xl) 50 Mg Tab, 25 MG PO DAILY for 30 Days, #15 TAB Prov:MILLY CORRAL RESIDENT 09/06/24 Flecainide Acetate (TAMBOCOR TABLET) 50 Mg Tb, 50 MG PO Q12HR for 30 Days, #60 TAB Prov:MILLY CORRAL RESIDENT 09/06/24 Pantoprazole Sodium Sesquihydr (Pantoprazole Sodium) 40 Mg Tab, 40 MG PO DAILY@0600 for 30 Days, #30 TAB Prov:RIZWANA RODRIGUEZ RESIDENT 12/03/23 Insulin Aspart (Insulin Aspart Flexpen) 100 Unit/Ml Inj, 100 UNIT SC ACHS for 60 Days, #3 INJ Blood sugar 150 to 250: 2 units Blood sugar 251 to 350: 4 units Blood sugar 351 to 400: 6 units Blood sugar 401 and above: 8 units and go to emergency room Prov:COREEN VILLALTA NP 07/05/23 Insulin Regular (Human) (Novolin R) 100 Unit/Ml Inj, 1-15 UNITS SC Q6HPRN PRN for 30 Days, #5 INJ 0 Refills take 1-15 units Q6hr ACHS per sliding scale Prov:VERENA BAUTISTA MD 11/07/21 Atorvastatin Calcium (Lipitor) 20 Mg Tab, 1 TAB PO DAILY, #30 TAB Prov:VERENA BAUTISTA MD 11/07/21 Review of Systems As described in the HPI Vital Signs Vital Signs Date Time Temp Pulse Resp B/P (MAP) Pulse Ox O2 Delivery O2 Flow Rate FiO2 01/03/25 13:00 98.8 90 19 118/80 (93) 100 98.8 01/03/25 08:00 Room Air* 0 21 Physical Exam Examination General Appearance: Alert, Oriented X3, Cooperative, No acute distress HEENT: EOMI Respiratory: Clear to auscultation, Normal air movement Cardiovascular: Regular rate, Normal S1, Normal S2 Abdominal: Normal bowel sounds Extremities: No cyanosis, No edema, Normal pulses, No tenderness/swelling Skin: No rashes, No breakdown Neuro: Normal gait, Normal speech, Strength at 5/5 X4 ext, Normal tone, Sensation intact, Cranial nerves 3-12 NL, Reflexes 2+ Psych/Mental Status: Mental status NL, Mood NL Labs/Diagnostic Data Labs Test 01/03/25 12:20 01/03/25 10:43 01/02/25 07:40 12/31/24 03:37 Range/Units Hemoglobin A1c 10.2 H <5.7 % A1C POC Glucose 271 H 70-106 mg/dl Sodium Level 137 136-145 mmol/L Potassium Level 4.7 3.5-5.1 mmol/L Chloride Level 104 98-107 mmol/L Carbon Dioxide Level 24 20-31 mmol/L Anion Gap 9 5-15 Blood Urea Nitrogen 17 9-23 mg/dL Creatinine 0.87 0.700-1.30 mg/dL Glomerular Filtration Rate Calc 116 >90 mL/min BUN/Creatinine Ratio 19.5 10.0-20.0 Serum Glucose 350 #H 74-106 mg/dL Calcium Level 9.4 8.7-10.4 mg/dL Phosphorus Level 3.3 2.4-5.1 mg/dL Magnesium Level 2.0 1.6-2.6 mg/dL Total Bilirubin 0.3 0.2-1.0 mg/dL Aspartate Amino Transferase (AST) < 8 <34 U/L Alanine Aminotransferase (ALT) < 9 7-40 U/L Alkaline Phosphatase 103 46-116 U/L Troponin I High Sensitivity < 3 L </=54 ng/L Total Protein 6.2 5.7-8.2 g/dL Albumin 4.0 3.2-4.8 g/dL Thyroid Stimulating Hormone (TSH) 1.34 0.55-4.78 uIU/mL White Blood Count 4.1 #L 4.4-10.8 10^3/uL Red Blood Count 4.46 L 4.5-5.90 10^6/uL Hemoglobin 8.2 L 13.5-17.5 g/dL Hematocrit 26.3 L 41.0-53.0 % Mean Corpuscular Volume 59.0 L 80.0-100.0 fL Mean Corpuscular Hemoglobin 18.4 L 28.0-32.0 pg Mean Corpuscular Hemoglobin Concent 31.2 L 32.0-36.0 g/dL Red Cell Distribution Width 20.0 H 11.8-14.3 % Platelet Count 138 L 140-450 10^3/uL Mean Platelet Volume 8.0 6.9-10.8 fL Neutrophils (%) (Auto) 75.8 37.0-80.0 % Lymphocytes (%) (Auto) 11.4 10.0-50.0 % Monocytes (%) (Auto) 12.2 H 0.0-12.0 % Eosinophils (%) (Auto) 0.2 0.0-7.0 % Basophils (%) (Auto) 0.4 0.0-2.0 % Neutrophils # (Auto) 3.1 1.6-8.6 10 ^3/uL Lymphocytes # (Auto) 0.5 0.4-5.4 10 ^3/uL Monocytes # (Auto) 0.5 0-1.3 10 ^3/uL Eosinophils # (Auto) 0 0-0.8 10 ^3/uL Basophils # (Auto) 0 0-0.2 10 ^3/uL Nucleated Red Blood Cells 0.1 % Platelet Estimate Adequate Hypochromasia (manual) Marked Microcytosis Marked Test 12/30/24 06:00 12/30/24 05:54 12/29/24 20:32 12/29/24 20:31 Range/Units Urine Color Light-yellow Yellow Urine Clarity Clear Clear Urine pH 5.5 5.0-9.0 Urine Specific [place] 1.013 1.001-1.035 Urine Protein Negative Negative Urine Ketones 4+ H Negative Urine Blood Negative Negative /uL Urine Nitrite Negative Negative Urine Bilirubin Negative Negative Urine Urobilinogen Normal Negative mg/dL Urine Leukocyte Esterase Negative Negative /uL Urine RBC <1 0 - 3 /hpf Urine Microscopic WBC < 1 0-3 /HPF Urine Squamous Epithelial Cells Few <5 /hpf Urine Bacteria None seen None Seen /hpf Urine Hyaline Casts Few 0 - 2 /lpf Urine Glucose 4+ H Normal mg/dL Hepatitis B Surface Antigen Negative Negative Hepatitis C Antibody Negative Negative Blood Gas Specimen Type Arterial Blood Gas Sample Site Right radial Blood Gas Patient Temperature 37.0 Arterial Blood Date Drawn [id number] Arterial Blood pH 7.452 H 7.350-7.450 Arterial Blood Partial Pressure CO2 23.2 L 35.0-48.0 mmHg Arterial Blood Partial Pressure O2 88.1 83.0-108.0 mmHg Arterial Blood HCO3 15.8 L 21.0-28.0 mmol/L Arterial Blood Oxygen Saturation 96.1 94.0-98.0 % Arterial Blood Base Excess -6.5 L -2.0-3.0 mmol/L Arterial Blood Oxyhemoglobin 94.8 94.0-98.0 % Arterial Blood Carboxyhemoglobin 1.1 0.5-1.5 % Arterial Blood Methemoglobin 0.3 0.0-1.5 % Baljit Test Modified Blood Gas Total Hemoglobin 11.10 L 13.5-17.5 g/dL Blood Gas Modality Room air FiO2 % 21.0 Serum Osmolality 319 H 278-298 mOsm/kg Beta-Hydroxybutyric Acid > 4.500 H < 0.4 mmol/L Plasma/Serum Blood Alcohol 3.0 <10 mg/dL Microbiology Date/Time Source Procedure Growth Status 12/31/24 08:00 Nose MRSA Screen - Final Complete Plan/Recommendation Assessment/plan # uncontrolled insulin dependent diabetes mellitus, likely type 1 # DKA, multiple admissions ? Alcohol intake possible trigger # alcohol use disorder # history of alcoholic pancreatitis # hypertension # history of A-Fib and V-tach Plan -will increase insulin glargine from 15 units to 20 units and we will add insulin lispro 6 units pre meal, with sliding scale insulin(mild). -provide diabetic education -ordered hemoglobin A1c, awaiting results -Advised for alcohol cessation -And will need outpatient follow up the estimator project manager for workup for diabetes( including islet autoantibodies (eg, glutamic acid decarboxylase [REID]-65 etc) and further management. Case discussion with Dr. Vail Plan discussed with: Patient, Other MARIBEL ABREU RESIDENT Jan 03, 2025 14:35
[2025-01-03 15:00] VITALS: BP 125/91; PULSE 92; TEMP 37.1
[2025-01-03] MEDS ORDERED: INSU1INJ19 SC (15:53)
[2025-01-03] MEDS ORDERED: INSU100I51 SC (15:53)
[2025-01-03] MEDS ORDERED: InsuLIN REG 1unit/0.01ml Soln (100units/ml) SC SCH (17:00)
[2025-01-03] MEDS ORDERED: INSULIN LISPRO (HUMAN) 100 UNITS/ML ML SC SCH (17:00)
[2025-01-03] MEDS ORDERED: ACCU-CHEK COMFORT CURVE STRIP VI SCH (17:00)
--- NOTE | 2025-01-03 22:33 | DVHPN2 ---
Progress Note - Dictate Date Seen: Jan 03, 2025 Medical Necessity Reason Pt with a Central, PICC or Fol: No Subjective Patient was seen and evaluated in follow up. No overnight events. TSH is WNL. Patient denies any cardiac symptoms. Patient is cardiac stable for discharge. Telemetry reviewed. vital signs Vital Sign Date Time Temp Pulse Resp B/P (MAP) Pulse Ox O2 Delivery O2 Flow Rate FiO2 01/03/25 15:00 37.1 92 01/03/25 13:00 19 118/80 (93) 100 01/03/25 08:00 Room Air* 0 21 Total Intake and Output 01/02/25 01/02/25 01/03/25 15:00 23:00 07:00 Intake Total 700 ml 1300 ml 1420 ml Output Total 550 ml Balance 700 ml 750 ml 1420 ml objective GENERAL: Alert and oriented x 3. No acute distress. EYES: PERRL, EOMI. Anicteric. HENT: Moist mucous membranes. LUNGS: Clear to auscultation bilaterally. CARDIOVASCULAR: Regular rate and rhythm. ABDOMEN: Soft, nontender and nondistended. EXTREMITIES: No edema. NEUROLOGIC: No focal neurological deficits. SKIN: Warm, dry. laboratory and microbiology Laboratory Tests 01/02/25 07:40 12/31/24 03:37 Test 01/02/25 07:40 Range/Units Serum Glucose 350 #H 74-106 mg/dL Problem List Suspected Arrhythmia. HTN. Sinus tachycardia. Diabetic ketoacidosis. Hypokalemia. Assessment/Plan Continued all current supportive medical care. Nifedipine, Labetalol. GI prophylactics. Morphine for pain management. Additional plan as per the hospital course. Dietary Evaluation Review Comments: 1) CCHO 60 + 2gm Na 2) Refer to CDE on DC Expected Outcomes/Goals: lab values to improve FU 3-5 days Plan discussed with: Patient ADDY RG MD Jan 03, 2025 22:33
[2025-01-04] MEDS ORDERED: INSULIN LANTUS (GLARGINE) 1 /0.01ml (100units/ml) SC SCH (10:00)
--- NOTE | 2025-01-06 14:48 | ECG ---
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
== END 2025-01-03 16:06 | disposition home or self-care (01) | DRG 420 ==
LOC: EDBD 20:00 → ER 20:00 → OVERFLOW 23:19 → TELE-WESTW 12-31 18:18
PROVIDERS: ADMIT Nurse Practitioner Acute Care; ATTEND Nurse Practitioner Acute Care
DX: E10.10 Type 1 diabetes mellitus with ketoacidosis without coma (principal); N17.0 Acute kidney failure with tubular necrosis; R65.11 Systemic inflammatory response syndrome (SIRS) of non-infectious origin with acute organ dysfunction; I47.20 Ventricular tachycardia, unspecified; I48.91 Unspecified atrial fibrillation; I10 Essential (primary) hypertension; F10.20 Alcohol dependence, uncomplicated; D72.829 Elevated white blood cell count, unspecified; E87.6 Hypokalemia; Z91.148 Patient's other noncompliance with medication regimen for other reason; Z82.5 Family history of asthma and other chronic lower respiratory diseases; Z82.49 Family history of ischemic heart disease and other diseases of the circulatory system; Z79.4 Long term (current) use of insulin
CPT/HCPCS: 36415; 36600; 71045; 80048; 80053; 80320; 81001; 82010; 82805; 82962; 83036; 83735; 83930; 84100; 84443; 84484; 85025; 86803; 87081; 87340; 93005; 96361; 96372; 96374; 96375; 99291; G0378; J1815; J2405; J2470; J3480

== ENCOUNTER 2025-02-06 08:42 | Inpatient (IN) | payer MEDICAID ==
[~2025-02-06] VITALS: Ht 170.2 cm; Wt 68.4 kg
[~2025-02-06 08:42] MED LIST changes: +INSU1INJ19 SC
--- NOTE | 2025-02-06 08:50 | ED.PDOC ---
History of Present Illness HPI Comments 34-year-old male was brought by paramedics because he has been feeling weak for the past three days. He does have a history of diabetes. He has not been taking his insulin since yesterday. He started to have vomit clots yesterday. Blood sugar reading high this morning as well as heart rate being in the 120. He does have a history of having DKA. Other than diabetes he denies any other past medical history. Denies any other symptoms. Time Seen by MD: 08:46 Primary Care Provider: UNKNOWN Reviewed Notes: Nurses Notes, Tape Duplicator Notes, Medications, Allergies Allergies: Coded Allergies: NO KNOWN ALLERGIES (Unverified , 06/03/22) Home Meds Active Scripts Insulin Aspart (Insulin Aspart Flexpen) 100 Unit/Ml Inj, 6 UNIT SC AC for 30 Days, #7 INJ Administer 15 min before meals Prov:COREEN VILLALTA FRUIT [employer] NUT GROWER 01/03/25 Insulin Glargine (Basaglar Kwikpen) 100 Unit/Ml Inj, 20 UNIT SC HS for 30 Days, #7 INJ Please provide patient appropriate needles and administration pen to go with all insulin. Prov:COREEN VILLALTA NP 01/03/25 Metronidazole (Metronidazole) 500 Mg Tab, 500 MG PO TID for 5 Days, #15 TAB Prov:DAQUAN NEFF DO 10/24/24 Ondansetron HCl (Ondansetron) 4 Mg Tab, 4 MG PO BID PRN for 30 Days, #60 TAB Prov:MILLY CORRAL 09/06/24 Pantoprazole Sodium Sesquihydr (Pantoprazole Sodium) 40 Mg Tab, 40 MG PO DAILY for 30 Days, #30 TAB Prov:MILLY CORRAL 09/06/24 Apixaban Base (ELIQUIS) 5 Mg Tab, 5 MG PO BID for 30 Days, #60 TAB Prov:MILLY CORRAL 09/06/24 Insulin Glargine (Lantus) 100 Unit/Ml Inj, 28 UNITS SC HS for 30 Days, #30 INJ Prov:MILLY CORRAL 09/06/24 Sucralfate (CARAFATE SUSP) 1 Gm/10 Ml Ss, 1 GM GT QID@0600,1130,1700,2200 for 30 Days, #120 ML Prov:MILLY CORRAL [facility] 09/06/24 Metoprolol Succinate (Toprol Xl) 50 Mg Tab, 25 MG PO DAILY for 30 Days, #15 TAB Prov:MILLY CORRAL [facility] 09/06/24 Flecainide Acetate (TAMBOCOR TABLET) 50 Mg Tb, 50 MG PO Q12HR for 30 Days, #60 TAB Prov:MILLY CORRAL [facility] 09/06/24 Pantoprazole Sodium Sesquihydr (Pantoprazole Sodium) 40 Mg Tab, 40 MG PO DAILY@0600 for 30 Days, #30 TAB Prov:LARRY VINSONRIZWANA RESIDENT 12/03/23 Insulin Aspart (Insulin Aspart Flexpen) 100 Unit/Ml Inj, 100 UNIT SC ACHS for 60 Days, #3 INJ Blood sugar 150 to 250: 2 units Blood sugar 251 to 350: 4 units Blood sugar 351 to 400: 6 units Blood sugar 401 and above: 8 units and go to emergency room Prov:COREEN VILLALTA NP 07/05/23 Insulin Regular (Human) (Novolin R) 100 Unit/Ml Inj, 1-15 UNITS SC Q6HPRN PRN for 30 Days, #5 INJ 0 Refills take 1-15 units Q6hr ACHS per sliding scale Prov:VERENA BAUTISTA MD 11/07/21 Atorvastatin Calcium (Lipitor) 20 Mg Tab, 1 TAB PO DAILY, #30 TAB Prov:VERENA BAUTISTA MD 11/07/21 Information Source: Patient, Emergency Med Personnel Mode of Arrival: EMS Severity: Moderate Timing: Days Duration: Since onset Past Medical History PAST MEDICAL HISTORY: DM, High Lipids, HTN, Liver, Seizures Surgical History: Denies all surgeries Family History Family History: Family hx of heart mary Social History Smoker: Non-Smoker Alcohol: Heavy Drugs: Denies Drug Use Lives In: Home Constitutional: denies: chills, diaphoresis, fatigue, fever, malaise, sweats, weakness, others EENTM: denies: blurred vision, double vision, ear bleeding, ear discharge, ear drainage, ear pain, ear ringing, eye pain, eye redness, hearing loss, mouth pain, mouth swelling, nasal discharge, nose bleeding, nose congestion, nose pain, photophobia, tearing, throat pain, throat swelling, voice changes, others Respiratory: denies: cough, hemoptysis, orthopnea, SOB at rest, shortness of breath, SOB with excertion, stridor, wheezing, others Cardiovascular: denies: chest pain, dizzy spells, diaphoresis, Dyspnea on exertion, edema, irregular heart beat, left arm pain, lightheadedness, palpitations, PND, syncope, others Gastrointestinal: reports: hematemesis, nausea; denies: abdomen distended, a bdominal pain, blood streaked bowels, constipated, diarrhea, dysphagia, difficulty swallowing, melena, poor appetite, poor fluid intake, rectal bleeding, rectal pain, vomiting, others Genitourinary: denies: burning, dysuria, flank pain, frequency, hematuria, incontinence, penile discharge, penile sore, pain, testicle pain, testicle swelling, urgency, others Neurological: denies: dizziness, fainting, headache, left sided numbness, left sided weakness, numbness, paresthesia, pre-existing deficit, right sided numbness, right sided weakness, seizure, speech problems, tingling, tremors, weakness, others Musculoskeletal: reports: joint pain; denies: back pain, gout, joint swelling, muscle pain, muscle stiffness, neck pain, others Integumetry: denies: bruises, change in color, change in hair/nails, dryness, laceration, lesions, lumps, rash, wounds, others Allergic/Immunocompromised: denies: Difficulty Healing, Frequent Infections, Hives, Itching, others Hematologic/Lymphatic: denies: anemia, blood clots, easy bleeding, easy bruising, swollen glands, others Endocrine: denies: excessive hunger, excessive sweating, excessive thirst, excessive urination, flushing, intolerance to cold, intolerance to heat, unexplained weight gain, unexplained weight loss, others Psychiatric: denies: anxiety, bipolar disorder, depression, hopeless, panic disorder, schizophrenia, sleepless, suicidal, others Physical Exam General Appearance: Moderate Distress HEENT: Normal ENT Inspection, Pharynx Normal, TMs Normal Neck: Full Range of Motion, Non-Tender, Normal, Normal Inspection Respiratory: Chest Non-Tender, Lungs Clear, No Accessory Muscle Use, No Respiratory Distress, Normal Breath Sounds Cardiovascular: Tachycardia Breast Exam: Deferred Gastrointestinal: No Organomegaly, Non Tender, No Pulsatile Mass, Normal Bowel Sounds, Soft Genitalia: Deferred Pelvic: Deferred Rectal: Deferred Extremities: No calf tenderness, Normal capillary refill, Normal inspection, Normal range of motion, Non-tender, No pedal edema Musculoskeletal : Apperance: Normal Neurologic: Alert, sql database programmer II-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 Was a procedure done?: No Differential Dx Considerations may include: DKA Electrolyte imbalance X-Ray, Labs, Meds, VS Patient alert. Complaining of generalized weakness vomiting blood. Vitals stable. Answering all questions. DKA protocol. Explained to the patient. Continue monitoring. Time of 1ST Reevaluation: 08:49 Reevaluation 1ST: Unchanged Patient Education/Counseling: Diagnosis, Treatment, Prognosis Family Education/Counseling: No Family Present Departure 1 Departure Time of Disposition: 08:50 Impression: Primary Impression: DKA (diabetic ketoacidoses) Disposition: 09 ADMITTED INPATIENT Admit to: Med Surg Condition: Guarded Critical Care Note Critical Care Time?: Yes (90 min-critical care time only) Stability Stability form required: No Heart Score Heart Score: Heart Score Response (Comments) Value History N/A 0 EKG N/A 0 Age N/A 0 Risk Factors N/A 0 Troponin N/A 0 Total 0 REJI REGAN MD Feb 06, 2025 08:50
[2025-02-06] MEDS ORDERED: DEXTROSE (50%) 50ML SYRG IV PRN (09:00)
[2025-02-06 09:11] LABS: Base Excess -7.7 mmol/L (-2.0-3.0)
[2025-02-06] MEDS: INSULIN LANTUS (GLARGINE) 1 /0.01ml (100units/ml) SC ONE (09:19)
[2025-02-06] MEDS: INSULIN DRIP 100 UNIT/100ML 100 ML IV SCH (09:49)
[2025-02-06] MEDS: SODIUM CHLORIDE 0.9% 1,000 ML IV SCH (09:50)
[2025-02-06] MEDS: ACCU-CHEK COMFORT CURVE STRIP VI SCH (09:50)
[2025-02-06 10:14] LABS: Anion Gap 38 (5-15); Calcium 8.7 mg/dL (8.7-10.4)
[2025-02-06 10:19] LABS: BUN/Creatinine Ratio 16.6 (10.0-20.0)
[2025-02-06 10:29] LABS: Hematocrit 34.1 % (41.0-53.0); Hemoglobin 10.1 g/dL (13.5-17.5); Mean Corpuscular Hemoglobin 17.0 pg (28.0-32.0); Mean Corpuscular Volume 57.1 fL (80.0-100.0); Nucleated Red Blood Cells % 0.1 %
[2025-02-06 10:33] LABS: Blood Urea Nitrogen 36 mg/dL (9-23); Carbon Dioxide 15 mmol/L (20-31); Chloride 73 mmol/L (98-107); Magnesium 2.7 mg/dL (1.6-2.6); Potassium 2.8 mmol/L (3.5-5.1); Sodium 126 mmol/L (136-145)
[2025-02-06 10:34] LABS: Glucose 620 mg/dL (74-106)
--- NOTE | 2025-02-06 10:42 | DVHHPRES ---
History of Present Illness Resident Creating Document: ANJALI MASON RESIDENT History of Present Illness This is a 34-year-old male with past medical history of hypertension, type 1 diabetes mellitus, dyslipidemia, liver disease, ethanol abuse, previous episodes of DKA who presented to the ED with intractable nausea and vomiting. Patient reports that he has been experiencing GI upset including multiple episodes of nausea and vomiting, patient noted some blood clots in the vomit therefore he came to ER. Patient has a known alcoholic, Reported last alcoholic drink 4 days back, last use insulin was yesterday morning. On arrival to the ER, patient was tachycardic, normotensive, tachypneic. BUN/creatinine elevated. Hypokalemic. Home medications: Basal insulin (Lantus) 20 units at bedside. Patient states that does not follow a basal bolus regimen. He does a sliding scale insulin which do not follow appropriately but do inject the 20 units of Lantus daily. Past medical history: hypertension, type 1 diabetes mellitus, dyslipidemia, liver disease, ethanol abuse, previous episodes of DKA Social history: Reports drinking alcohol daily, denies smoking or drug use Patient seen and examined in the ER. Currently on IV insulin drip, patient is alert. Patient NPO. Review of Systems Allergies: Coded Allergies: NO KNOWN ALLERGIES (Unverified , 06/03/22) Medications Current Medications Medications Dose Ordered Sig/Lazaro Route Start Time Stop Time Status Last Admin Dose Admin Sodium Chloride 1,000 ml @ 500 mls/hr Q2H IV 02/06/25 09:00 02/06/25 12:59 02/06/25 09:50 500 MLS/HR Sodium Chloride 1,000 ml @ 250 mls/hr Q4H IV 02/06/25 13:00 02/06/25 14:59 Sodium Chloride 1,000 ml @ 150 mls/hr Q6H40M IV 02/06/25 15:00 Insulin Human (Reg)/Sodium Chloride 100 ml @ 0.5 mls/hr Q24H IV 02/06/25 09:00 02/06/25 09:49 6 MLS/HR Dextrose 50 ml UD PRN IV 02/06/25 09:00 Diagnostic Test (Pha) 1 strip Q90MIN 02/06/25 09:00 02/06/25 09:50 1 STRIP Insulin Glargine 15 units DAILY SC 02/07/25 10:00 Exam Vital Signs Vital Signs Date Time Temp Pulse Resp B/P (MAP) Pulse Ox O2 Delivery O2 Flow Rate FiO2 02/06/25 09:22 114 02/06/25 08:51 97.5 28 123/87 100 97.5 Exam Young male patient lying in bed, in no acute distress General: Well-built, afebrile, palor, mucosae are moist Cardiovascular: Sinus tachycardia, Regular S1 and S2. No murmurs, gallops or rubs. No JVD elevation. No pedal edema Respiratory: Normal B/L air entry on room air. Clear lung sounds on auscultation Abdomen: Soft, nontender, nondistended, normoactive bowel sounds, no rebound tenderness, no organomegaly, no masses Genitourinary: Deferred MSK/skin: Mobilizes 4 limbs. Skin is dry and warm Neurological: No motor, no sensitive deficits, normal speech. Pupils are isocoric and reactive. Psych/Mental Status: A/Ox4 Labs/Xrays Labs Test 02/06/25 09:46 02/06/25 09:30 02/06/25 09:06 Range/Units POC Glucose 599 *H 70-106 mg/dl White Blood Count 13.2 H 4.4-10.8 10^3/uL Red Blood Count 5.98 H 4.5-5.90 10^6/uL Hemoglobin 10.1 L 13.5-17.5 g/dL Hematocrit 34.1 L 41.0-53.0 % Mean Corpuscular Volume 57.1 L 80.0-100.0 fL Mean Corpuscular Hemoglobin 17.0 L 28.0-32.0 pg Mean Corpuscular Hemoglobin Concent 29.7 L 32.0-36.0 g/dL Red Cell Distribution Width 19.5 H 11.8-14.3 % Platelet Count 295 140-450 10^3/uL Mean Platelet Volume 8.5 6.9-10.8 fL Neutrophils (%) (Auto) 89.6 H 37.0-80.0 % Lymphocytes (%) (Auto) 3.9 L 10.0-50.0 % Monocytes (%) (Auto) 6.5 0.0-12.0 % Eosinophils (%) (Auto) 0.0 0.0-7.0 % Basophils (%) (Auto) 0.0 0.0-2.0 % Neutrophils # (Auto) 11.8 H 1.6-8.6 10 ^3/uL Lymphocytes # (Auto) 0.5 0.4-5.4 10 ^3/uL Monocytes # (Auto) 0.9 0-1.3 10 ^3/uL Eosinophils # (Auto) 0 0-0.8 10 ^3/uL Basophils # (Auto) 0 0-0.2 10 ^3/uL Nucleated Red Blood Cells 0.1 % Sodium Level 126 L 136-145 mmol/L Potassium Level 2.8 L 3.5-5.1 mmol/L Chloride Level 73 L 98-107 mmol/L Carbon Dioxide Level 15 L 20-31 mmol/L Anion Gap 38 H 5-15 Blood Urea Nitrogen 36 H 9-23 mg/dL Creatinine 2.17 H 0.700-1.30 mg/dL Glomerular Filtration Rate Calc 40 >90 mL/min BUN/Creatinine Ratio 16.6 10.0-20.0 Serum Glucose 620 *H 74-106 mg/dL Calcium Level 8.7 8.7-10.4 mg/dL Phosphorus Level 6.9 H 2.4-5.1 mg/dL Magnesium Level 2.7 H 1.6-2.6 mg/dL Beta-Hydroxybutyric Acid > 4.500 H < 0.4 mmol/L Blood Gas Specimen Type Arterial Blood Gas Sample Site Left radial Blood Gas Patient Temperature 37.0 Arterial Blood Date Drawn [id number] Arterial Blood pH 7.412 7.350-7.450 Arterial Blood Partial Pressure CO2 24.7 L 35.0-48.0 mmHg Arterial Blood Partial Pressure O2 93.2 83.0-108.0 mmHg Arterial Blood HCO3 15.4 L 21.0-28.0 mmol/L Arterial Blood Oxygen Saturation 96.0 94.0-98.0 % Arterial Blood Base Excess -7.7 L -2.0-3.0 mmol/L Arterial Blood Oxyhemoglobin 94.2 94.0-98.0 % Arterial Blood Carboxyhemoglobin 1.3 0.5-1.5 % Arterial Blood Methemoglobin 0.6 0.0-1.5 % Baljit Test Yes Blood Gas Total Hemoglobin 11.00 L 13.5-17.5 g/dL Blood Gas Modality Room air FiO2 % 21.0 SEPSIS Sepsis Screen Date sepsis recognized/suspect: Feb 06, 2025 Time Sepsis recognized/suspect: 08 Recent Procedure: No On Antibiotic Therapy: No Respiratory Rate >20: Yes Heart Rate >90: Yes Temp<36 C (96.8 F) or >38.3 C: No SBP <90 or MAP <65 mmHG: No New Acute Mental Status Change: No Is the patient on CPAP, BIPAP,: No Physician Orders Insulin Drip Protocol (02/06/25 ) Sodium Chloride 0.9% (02/06/25 09:00) Sodium Chloride 0.9% (02/06/25 13:00) Sodium Chloride 0.9% (02/06/25 15:00) Insulin Drip 100 Unit/100ml (Myxredlin 1 (02/06/25 09:00) Dextrose 50% Syringe (02/06/25 09:00) Glucose Blood (Accu-Chek Comfort Curve T (02/06/25 09:00) Osmolality, Serum (02/06/25 08:51) Abg W/ Co-Ox (02/06/25 08:51) Basic Metabolic Panel (02/06/25 14:51) Basic Metabolic Panel (02/06/25 20:51) Basic Metabolic Panel (02/07/25 02:51) Urinalysis (02/06/25 08:51) Neurological Assessment (02/06/25 08:51) Vs/Hemodynamics .PER UNIT PROTOCOL (02/06/25 08:51) Insulin Lantus (Glargine) (Lantus) (02/07/25 10:00) Admit (02/06/25 10:39) Covid19 Antigen Mackenzie (02/06/25 ) Rapid Influenza A&B (02/06/25 10:39) Urinalysis (02/06/25 10:39) Urine Protein/Creatinine Ratio (02/06/25 ) Urine Sodium (02/06/25 10:39) Potassium Chl [place] Kcl (02/06/25 10:45) Blood Alcohol (02/06/25 10:39) Drug Screen (02/06/25 10:39) Hepatic Panel (02/06/25 10:39) Thyroid Stimulating Hormone (02/06/25 10:39) Vital Signs Date Time Temp Pulse Resp B/P (MAP) Pulse Ox O2 Delivery O2 Flow Rate FiO2 02/06/25 09:22 114 02/06/25 08:51 97.5 120 28 123/87 100 97.5 Laboratory Tests Test 02/06/25 09:30 White Blood Count 13.2 10^3/uL (4.4-10.8) H Medications Medications Dose Ordered Sig/Lazaro Route Start Time Stop Time Status Last Admin Dose Admin Diagnostic Test (Pha) 1 strip Q90MIN 02/06/25 09:00 02/06/25 09:50 1 STRIP Insulin Glargine 15 units ONCE ONCE SC 02/06/25 09:00 02/06/25 09:01 DC 02/06/25 09:19 15 UNITS Insulin Human (Reg)/Sodium Chloride 100 ml @ 0.5 mls/hr Q24H IV 02/06/25 09:00 02/06/25 09:49 6 MLS/HR Sodium Chloride 1,000 ml @ 500 mls/hr Q2H IV 02/06/25 09:00 02/06/25 12:59 02/06/25 09:50 500 MLS/HR Assessment/Plan Assessment/Plan Septic shock in the setting of gastro enteritis leading to DKA Diabetic ketoacidosis Uncontrolled diabetes mellitus Anion gap metabolic acidosis - currently on D5 half NS - insulin bolus 0.1 mL/kg followed by insulin drip protocol - IV ceftriaxone and metronidazole - ICU level of care Intractable nausea and vomiting with hematemesis Pantoprazole 40 mg daily IV NPO Sinus tachycardia due to DKA/electrolyte abnormalities/alcoholic withdrawal Acute alcoholic withdrawal - thiamine and folate supplemented - Ativan p.r.n. KEILA likely due to vasomotor nephropathy (septic shock and dehydration) - creatinine downtrending Anemia, microcytic Iron panel pending Stool occult pending Dyslipidemia Atorvastatin 40 mg daily Hypokalemia Hypomagnesemia Supplementing Alcohol use dependence Counseled regarding cessation for 22 minutes Plan discussed with patient and the nurse in which all questions have been answered Goals of care discussed with the patient for 20 minutes, full code status 120 minutes of critical care time Case discussed with Dr. Denise Plan discussed with: Patient, Other (Nurse) My Orders Orders - ANJALI MASON RESIDENT Procedure Category Date Status Time Admit ADMIT 02/06/25 Verified 10:39 Covid19 Antigen Mackenzie LAB 02/06/25 Verified Rapid Influenza A&B LAB 02/06/25 Verified 10:39 Urinalysis LAB 02/06/25 Verified 10:39 Urine LAB 02/06/25 Verified Protein/Creatinine Urine Sodium LAB 02/06/25 Verified 10:39 Potassium Chl [place] PHA 02/06/25 Verified KCL 10:45 Blood Alcohol LAB 02/06/25 Verified 10:39 Drug Screen LAB 02/06/25 Verified 10:39 Hepatic Panel LAB 02/06/25 Verified 10:39 Thyroid Stimulating LAB 02/06/25 Verified Hormone 10:39 Date of Service: Feb 06, 2025 Billing Provider: ANKITA DENISE MD Common Visit Codes: 47291-SCEREMIY CARE 30-74 MIN (120 minutes), 44756-MCPCDDUJ CARE-EACH +30MIN Secondary Visit Codes: 01295-NIFQP CHNG SMOKING >10MIN (Counseled for 22 minutes on alcohol use cessation), 71563-JQUYIOZM CARE PLAN 30 MINUTES (20 minutes) ANJALI MASON RESIDENT Feb 06, 2025 10:42 ANKITA DENISE MD Feb 08, 2025 06:07
[2025-02-06] MEDS: POTASSIUM CHL 20MEQ/100ML 100 ML IV SCH (10:54)
[2025-02-06 11:19] LABS: Protein, Urine 15.8 mg/dL (1-14)
[2025-02-06 11:19] LABS: Bilirubin, Direct 0.3 mg/dL (<0.3); Bilirubin, Total 0.9 mg/dL (0.2-1.0)
[2025-02-06 11:20] LABS: Alanine Aminotransferase < 9 U/L (7-40); Albumin 5.5 g/dL (3.2-4.8); Alkaline Phosphatase 134 U/L (46-116); Total Protein 8.6 g/dL (5.7-8.2)
[2025-02-06 11:23] LABS: Urine Protein, UAD Negative (Negative)
[2025-02-06 11:25] LABS: Amphetamine Screen, Urine Neg (NEGATIVE); Barbiturate Scree,Urine Neg (NEGATIVE); Benzodiazephine Screen, Urine Neg (NEGATIVE); Cannabinoid Screen, Urine Neg (NEGATIVE); Cocaine Screen, Urine Neg (NEGATIVE); Opiate Scree,Urine Neg (NEGATIVE); Phencyclidine Screen, Urine Neg (NEGATIVE)
--- NOTE | 2025-02-06 11:57 | DVH ---
CHEST RADIOGRAPH Indication: chest pain Technique: Single frontal view of the chest was obtained Comparison: XY CHEST PORTABLE on DOS: 12/29/24, XY CHEST PORTABLE on DOS: 10/19/24, XY CHEST XRAY 1 VIE W on DOS: 09/03/24 FINDINGS: Lines and Tubes: None Lungs: No focal consolidation. Pleura: No effusion. No pneumothorax. Cardiomediastinal contours: Unremarkable Bones: No acute osseous abnormality. IMPRESSION: 1. No acute cardiopulmonary disease. HS:Y
[2025-02-06] MEDS ORDERED: SODIUM CHLORIDE 0.9% 1,000 ML IV SCH ×2 (13:00→15:00)
[2025-02-06] MEDS: D5W/SOD CHLO 0.9% 1,000 ML IV SCH (13:28)
[2025-02-06 15:02] LABS: Sodium 138 mmol/L (136-145)
[2025-02-06 15:03] LABS: Anion Gap 18 (5-15); Carbon Dioxide 24 mmol/L (20-31)
[2025-02-06 15:09] LABS: BUN/Creatinine Ratio 23.4 (10.0-20.0); Blood Urea Nitrogen 33 mg/dL (9-23); Calcium 7.7 mg/dL (8.7-10.4); Chloride 96 mmol/L (98-107); Glucose 279 mg/dL (74-106); Potassium 3.0 mmol/L (3.5-5.1)
[2025-02-06 15:44] LABS: COVID19 ANTIGEN SOFIA FIA NEGATIVE (NEGATIVE)
[2025-02-06] MEDS: ONDANSETRON HCL 4 MG/2 ML VIAL IV PRN (15:46)
[2025-02-06] MEDS ORDERED: LORazepam 2MG/ML-1ML VIAL IV PRN (16:00)
[2025-02-06] MEDS: PANTOPRAZOLE 40 MG/10 ML VIAL INJ IV ONE (16:32)
[2025-02-06] MEDS: cefTRIAXone 1GM/50ML D5W 50 ML IV ONE (16:32)
[2025-02-06] MEDS: D5W/SOD CHL 0.45% 1,000 ML IV SCH (16:33)
[2025-02-06] MEDS: THIAMINE 100mg/ml INJ (200mg/2ml VIAL) IV ONE (16:33)
[2025-02-06] MEDS: FOLIC ACID 1 MG in D5W 5% 50 ML INJ ONE (17:49)
[2025-02-06 19:00] VITALS: BP 133/80; PULSE 113; RESP 15; TEMP 96.9; O2SAT 98
[2025-02-06 20:00] VITALS: BP 154/102; PULSE 109; PULSE 119; RESP 11; RESP 14; O2SAT 100
[2025-02-06 21:00] VITALS: BP 138/87; PULSE 123; RESP 13; O2SAT 100
[2025-02-06 21:54] LABS: Chloride 100 mmol/L (98-107); Sodium 141 mmol/L (136-145)
[2025-02-06 21:55] LABS: Anion Gap 17 (5-15); Carbon Dioxide 24 mmol/L (20-31)
[2025-02-06 22:00] VITALS: BP 106/68; PULSE 111; PULSE 88; RESP 14; RESP 18; O2SAT 96; O2SAT 99
[2025-02-06 22:01] LABS: BUN/Creatinine Ratio 21.9 (10.0-20.0)
[2025-02-06 22:08] LABS: Blood Urea Nitrogen 23 mg/dL (9-23); Calcium 8.5 mg/dL (8.7-10.4); Glucose 157 mg/dL (74-106); Potassium 2.8 mmol/L (3.5-5.1)
[2025-02-06 23:00] VITALS: BP 135/86; PULSE 79; RESP 13; O2SAT 100
[2025-02-06] MEDS: POTASSIUM CHL 20MEQ/100ML 100 ML IV ONE (23:15)
[2025-02-07] VITALS (14 sets, daily range): BP systolic 118–168; BP diastolic 76–102; PULSE 62–131; RESP 11–19; TEMP 96.9–98.9; O2SAT 97–100
[2025-02-07 05:03] LABS: Hematocrit 28.0 % (41.0-53.0); Hemoglobin 8.7 g/dL (13.5-17.5); Mean Corpuscular Hemoglobin 17.2 pg (28.0-32.0); Mean Corpuscular Volume 55.4 fL (80.0-100.0); Nucleated Red Blood Cells % 0.0 %
[2025-02-07 05:13] LABS: Anion Gap 12 (5-15); Carbon Dioxide 26 mmol/L (20-31); Chloride 103 mmol/L (98-107); Sodium 141 mmol/L (136-145)
[2025-02-07 05:15] LABS: Calcium 8.5 mg/dL (8.7-10.4); Potassium 3.1 mmol/L (3.5-5.1)
[2025-02-07 05:19] LABS: BUN/Creatinine Ratio 21.7 (10.0-20.0); Blood Urea Nitrogen 20 mg/dL (9-23)
[2025-02-07 05:21] LABS: Albumin 4.3 g/dL (3.2-4.8); Alkaline Phosphatase 95 U/L (46-116); Anion Gap 13 (5-15); BUN/Creatinine Ratio 21.5 (10.0-20.0); Blood Urea Nitrogen 20 mg/dL (9-23); Carbon Dioxide 26 mmol/L (20-31); Chloride 102 mmol/L (98-107); Magnesium 2.6 mg/dL (1.6-2.6); Sodium 141 mmol/L (136-145); Total Protein 6.6 g/dL (5.7-8.2)
[2025-02-07 05:22] LABS: Bilirubin, Total 0.4 mg/dL (0.2-1.0); Total Iron Binding Capacity 383.0 ug/dL (250-425)
[2025-02-07 05:23] LABS: Alanine Aminotransferase < 9 U/L (7-40); Calcium 8.6 mg/dL (8.7-10.4); Glucose 171 mg/dL (74-106); Glucose 172 mg/dL (74-106); Iron 10.0 ug/dL (65-175); Potassium 3.1 mmol/L (3.5-5.1)
[2025-02-07] MEDS ORDERED: DEXTROSE (50%) 50ML SYRG IV PRN (06:45)
[2025-02-07] MEDS: InsuLIN REG 1unit/0.01ml Soln (100units/ml) SC SCH (07:56)
[2025-02-07] MEDS: ACCU-CHEK COMFORT CURVE STRIP VI SCH (08:18)
[2025-02-07] MEDS: POTASSIUM CHL 20MEQ/100ML 100 ML IV SCH (08:18)
[2025-02-07] MEDS: cefTRIAXone 1GM/50ML D5W 50 ML IV SCH (09:49)
[2025-02-07] MEDS: INSULIN LANTUS (GLARGINE) 1 /0.01ml (100units/ml) SC SCH ×2 (10:00→22:05)
[2025-02-07] MEDS: PANTOPRAZOLE 40 MG/10 ML VIAL INJ IV SCH (10:17)
--- NOTE | 2025-02-07 12:19 | DVH ---
Indication: r/o sbo Technique: XY KUB ABDOMEN SINGLE VIEWXY Comparison: None FINDINGS/IMPRESSION: Moderate to large volume stool within the colon. No evidence for free intraperitoneal air. No pathol ogic calcifications.
[2025-02-07] MEDS: POLYETHYLENE GLYCOL 17 GM PWDR PO ONE (13:52)
[2025-02-07] MEDS: DOCUSATE SOD 100 MG CAP PO ONE (13:52)
--- NOTE | 2025-02-07 16:16 | DVHPNRES ---
Progress Note Date Seen: Feb 07, 2025 Resident Creating Document: ANJALI MASON RESIDENT Medical Necessity Reason Pt with a Central, PICC or Fol: No Subjective Review of Systems This is a 34-year-old male with past medical history of hypertension, type 1 diabetes mellitus, dyslipidemia, liver disease, ethanol abuse, previous episodes of DKA who presented to the ED with intractable nausea and vomiting. Patient reports that he has been experiencing GI upset including multiple episodes of nausea and vomiting, patient noted some blood clots in the vomit therefore he came to ER. Patient has a known alcoholic, Reported last alcoholic drink 4 days back, last use insulin was yesterday morning. On arrival to the ER, patient was tachycardic, normotensive, tachypneic. BUN/creatinine elevated. Hypokalemic. Home medications: Basal insulin (Lantus) 20 units at bedside. Patient states that does not follow a basal bolus regimen. He does a sliding scale insulin which do not follow appropriately but do inject the 20 units of Lantus daily. Past medical history: hypertension, type 1 diabetes mellitus, dyslipidemia, liver disease, ethanol abuse, previous episodes of DKA Social history: Reports drinking or daily, denies smoking or drug use 02/06-Patient seen and examined in the ER. Currently on IV insulin drip, patient is alert. Patient NPO. 02/07-patient seen and examined in ER. Had 1 episode of vomiting earlier morning, clear, no blood in it. Started clear liquid diet. IV insulin discontinued. Patient downgraded to telemetry. KUB unremarkable for obstruction. Given MiraLax. Objective vital signs Vital Sign Date Time Temp Pulse Resp B/P (MAP) Pulse Ox O2 Delivery O2 Flow Rate FiO2 02/07/25 14:09 97.6 62 16 168/100 (122) 100 97.6 02/07/25 14:00 Room Air* 0 21 Total Intake and Output 02/06/25 02/06/25 02/07/25 15:00 23:00 07:00 Intake Total 800 ml 990 ml Output Total 1400 ml 1300 ml Balance -600 ml -310 ml medications Current Medications Medications Dose Ordered Sig/Lazaro Route Start Time Stop Time Status Last Admin Dose Admin Ondansetron HCl 4 mg Q4HPRN PRN IV 02/06/25 14:00 02/07/25 13:50 4 MG Pantoprazole Sodium 40 mg DAILY IV 02/07/25 10:00 02/07/25 10:17 40 MG Lorazepam 0.5 mg Q8HP PRN IV 02/06/25 16:00 Ceftriaxone Sodium 50 ml @ 100 mls/hr DAILY@09 IV 02/07/25 09:00 02/07/25 09:49 100 MLS/HR Metronidazole 100 ml @ 100 mls/hr Q8HR IV 02/06/25 22:00 02/07/25 15:10 100 MLS/HR Diagnostic Test (Pha) 1 strip IQ4HR 02/07/25 08:00 02/07/25 11:43 1 STRIP Insulin Human Regular IQ4HR SC 02/07/25 08:00 02/07/25 11:43 2 UNITS Dextrose 50 ml UD PRN IV 02/07/25 06:45 Insulin Glargine 15 units HS SC 02/07/25 22:00 Docusate Sodium 100 mg BID PO 02/07/25 22:00 Examination Young male patient lying in bed, in no acute distress General: Well-built, afebrile, palor, mucosae are moist Cardiovascular: Sinus tachycardia, Regular S1 and S2. No murmurs, gallops or rubs. No JVD elevation. No pedal edema Respiratory: Normal B/L air entry on room air. Clear lung sounds on auscultation Abdomen: Soft, nontender, nondistended, normoactive bowel sounds, no rebound tenderness, no organomegaly, no masses Genitourinary: Deferred MSK/skin: Mobilizes 4 limbs. Skin is dry and warm Neurological: No motor, no sensitive deficits, normal speech. Pupils are isocoric and reactive. Psych/Mental Status: A/Ox4 laboratory and microbiology Laboratory Tests 02/07/25 04:37 Test 02/07/25 04:37 Range/Units Serum Glucose 171 H 74-106 mg/dL Labs and/or images reviewed: Labs reviewed by me, Image(s) reviewed by me Problem List/Assessment/Plan Problem List/Assessment/Plan Septic shock in the setting of gastro enteritis leading to DKA Diabetic ketoacidosis Uncontrolled diabetes mellitus Anion gap metabolic acidosis - gap closed, DC IV insulin, DC IV fluids, clear liquid diet - insulin glargine 15 units HS, sliding scale - IV ceftriaxone and metronidazole Intractable nausea and vomiting with hematemesis Pantoprazole 40 mg daily IV Sinus tachycardia due to DKA/electrolyte abnormalities/alcoholic withdrawal Acute alcoholic withdrawal - thiamine and folate supplemented - Ativan p.r.n. KEILA likely due to vasomotornephropathy (septic shock and dehydration) - creatinine downtrending Anemia, microcytic Iron panel shows iron-deficiency anemia Stool occult pending IV iron 1 dose ordered Dyslipidemia Atorvastatin 40 mg daily Hypokalemia Hypomagnesemia Supplementing Alcohol use dependence Counseled regarding cessation for more than 20 minutes DVT prophylaxis: Enoxaparin 40 mg daily GERD prophylaxis: Pantoprazole 40 mg IV Plan discussed with patient and the nurse in which all questions have been answered Goals of care discussed with the patient for more than 25 minute, full code status Case discussed with Dr. Ng Plan discussed with: Patient My Orders My Orders Orders - ANJALI MASON Procedure Category Date Status Time Clear Liq Diet DIET 02/07/25 Transmitted Breakfast Insulin Lantus PHA 02/07/25 In Process (Glargine) (Lantus) 22:00 Kub Abdomen Single XY 02/07/25 Resulted View 11:24 Transfer Orders XFER 02/07/25 Transmitted 13:32 Docusate Sodium PHA 02/07/25 In Process Capsule (Colace 22:00 ANJALI MASON RESIDENT Feb 07, 2025 16:16
[2025-02-07] MEDS: IRON SUCROSE COMPLEX 110 ML IV ONE (16:56)
[2025-02-07] MEDS: MULTIPLE VITAMIN TAB PO ONE (16:56)
[2025-02-07] MEDS: FOLIC ACID 1 MG TAB PO ONE (16:56)
[2025-02-07] MEDS: THIAMINE HCL 100 MG TAB PO ONE (16:56)
[2025-02-07] MEDS: DOCUSATE SOD 100 MG CAP PO SCH (21:58)
[2025-02-08] VITALS (8 sets, daily range): BP systolic 138–155; BP diastolic 85–103; PULSE 54–90; RESP 17–20; TEMP 96.8–98.5; O2SAT 98–100
[2025-02-08] MEDS: FOLIC ACID 1 MG TAB PO SCH (08:42)
[2025-02-08] MEDS: THIAMINE HCL 100 MG TAB PO SCH (08:42)
[2025-02-08] MEDS: MULTIPLE VITAMIN TAB PO SCH (08:43)
[2025-02-08 10:32] LABS: Chloride 101 mmol/L (98-107); Sodium 137 mmol/L (136-145)
[2025-02-08 10:33] LABS: Anion Gap 10 (5-15); Carbon Dioxide 26 mmol/L (20-31)
[2025-02-08 10:38] LABS: BUN/Creatinine Ratio 17.1 (10.0-20.0); Blood Urea Nitrogen 13 mg/dL (9-23)
[2025-02-08 10:41] LABS: Hematocrit 27.9 % (41.0-53.0); Hemoglobin 8.4 g/dL (13.5-17.5); Mean Corpuscular Hemoglobin 17.3 pg (28.0-32.0); Mean Corpuscular Volume 57.7 fL (80.0-100.0); Nucleated Red Blood Cells % 0.2 %
[2025-02-08 10:54] LABS: Calcium 8.6 mg/dL (8.7-10.4); Glucose 183 mg/dL (74-106); Potassium 3.3 mmol/L (3.5-5.1)
--- NOTE | 2025-02-08 14:13 | DVHPNRES ---
Progress Note Date Seen: Feb 08, 2025 Resident Creating Document: ANJALI MASON RESIDENT Medical Necessity Reason Pt with a Central, PICC or Fol: No Subjective Review of Systems This is a 34-year-old male with past medical history of hypertension, type 1 diabetes mellitus, dyslipidemia, liver disease, ethanol abuse, previous episodes of DKA who presented to the ED with intractable nausea and vomiting. Patient reports that he has been experiencing GI upset including multiple episodes of nausea and vomiting, patient noted some blood clots in the vomit therefore he came to ER. Patient has a known alcoholic, Reported last alcoholic drink 4 days back, last use insulin was yesterday morning. On arrival to the ER, patient was tachycardic, normotensive, tachypneic. BUN/creatinine elevated. Hypokalemic. Home medications: Basal insulin (Lantus) 20 units at bedside. Patient states that does not follow a basal bolus regimen. He does a sliding scale insulin which do not follow appropriately but do inject the 20 units of Lantus daily. Past medical history: hypertension, type 1 diabetes mellitus, dyslipidemia, liver disease, ethanol abuse, previous episodes of DKA Social history: Reports drinking or daily, denies smoking or drug use 02/06-Patient seen and examined in the ER. Currently on IV insulin drip, patient is alert. Patient NPO. 02/07-patient seen and examined in ER. Had 1 episode of vomiting earlier morning, clear, no blood in it. Started clear liquid diet. IV insulin discontinued. Patient downgraded to telemetry. KUB unremarkable for obstruction. Given MiraLax. 02/08 - Vomiting, on cl liq diet, gastrophrin study ordered. K repleted Objective vital signs Vital Sign Date Time Temp Pulse Resp B/P (MAP) Pulse Ox O2 Delivery O2 Flow Rate FiO2 02/08/25 09:00 98.2 54 18 155/85 (108) 100 98.2 02/08/25 07:30 Room Air* 0 21 Total Intake and Output 02/07/25 02/07/25 02/08/25 14:59 22:59 06:59 Intake Total 200 ml 710 ml 550 ml Output Total 700 ml 200 ml Balance -500 ml 510 ml 550 ml medications Current Medications Medications Dose Ordered Sig/Lazaro Route Start Time Stop Time Status Last Admin Dose Admin Ondansetron HCl 4 mg Q4HPRN PRN IV 02/06/25 14:00 02/08/25 11:31 4 MG Pantoprazole Sodium 40 mg DAILY IV 02/07/25 10:00 02/08/25 08:42 40 MG Lorazepam 0.5 mg Q8HP PRN IV 02/06/25 16:00 Ceftriaxone Sodium 50 ml @ 100 mls/hr DAILY@09 IV 02/07/25 09:00 02/08/25 08:42 100 MLS/HR Metronidazole 100 ml @ 100 mls/hr Q8HR IV 02/06/25 22:00 02/08/25 13:41 100 MLS/HR Diagnostic Test (Pha) 1 strip IQ4HR 02/07/25 08:00 02/08/25 11:31 1 STRIP Insulin Human Regular IQ4HR SC 02/07/25 08:00 02/08/25 11:35 3 UNITS Dextrose 50 ml UD PRN IV 02/07/25 06:45 Insulin Glargine 15 units HS SC 02/07/25 22:00 02/07/25 22:05 15 UNITS Docusate Sodium 100 mg BID PO 02/07/25 22:00 02/08/25 08:43 100 MG Folic Acid 1 mg DAILY PO 02/08/25 10:00 02/08/25 08:42 1 MG Thiamine HCl 100 mg DAILY PO 02/08/25 10:00 02/08/25 08:42 100 MG Multivitamins 1 tab DAILY PO 02/08/25 10:00 02/08/25 08:43 1 TAB Examination Young male patient lying in bed, in no acute distress General: Well-built, afebrile, palor, mucosae are moist Cardiovascular: Sinus tachycardia, Regular S1 and S2. No murmurs, gallops or rubs. No JVD elevation. No pedal edema Respiratory: Normal B/L air entry on room air. Clear lung sounds on auscultation Abdomen: Soft, nontender, nondistended, normoactive bowel sounds, no rebound tenderness, no organomegaly, no masses Genitourinary: Deferred MSK/skin: Mobilizes 4 limbs. Skin is dry and warm Neurological: No motor, no sensitive deficits, normal speech. Pupils are isocoric and reactive. Psych/Mental Status: A/Ox4 laboratory and microbiology Laboratory Tests 02/08/25 09:50 Test 02/08/25 09:50 Range/Units Serum Glucose 183 H 74-106 mg/dL Microbiology Date/Time Source Procedure Growth Status 02/07/25 04:20 Nose MRSA Screen - Final Complete Labs and/or images reviewed: Labs reviewed by me, Image(s) reviewed by me Problem List/Assessment/Plan Problem List/Assessment/Plan Septic shock in the setting of gastro enteritis leading to DKA Diabetic ketoacidosis Uncontrolled diabetes mellitus Anion gap metabolic acidosis - gap closed, DC IV insulin, DC IV fluids, clear liquid diet - insulin glargine 15 units HS, sliding scale - IV ceftriaxone and metronidazole Intractable nausea and vomiting with hematemesis R/O SBO Small bowel gastrographin pending Pantoprazole 40 mg daily IV Sinus tachycardia due to DKA/electrolyte abnormalities/alcoholic withdrawal Acute alcoholic withdrawal - thiamine and folate supplemented - Ativan p.r.n. KEILA likely due to vasomotornephropathy (septic shock and dehydration) - creatinine downtrending Anemia, microcytic Iron panel shows iron-deficiency anemia Stool occult pending IV iron 1 dose ordered Dyslipidemia Atorvastatin 40 mg daily Hypokalemia Hypomagnesemia Supplementing Alcohol use dependence Counseled regarding cessation for more than 20 minutes DVT prophylaxis: Enoxaparin 40 mg daily GERD prophylaxis: Pantoprazole 40 mg IV Plan discussed with patient and the nurse in which all questions have been answered Goals of care discussed with the patient for more than 25 minute, full code status Case discussed with Dr. Ng.Small bowel gastrographin pending Plan discussed with: Patient My Orders My Orders Orders - ANJALI MASON RESIDENT Procedure Category Date Status Time Communication Order ORDERS 02/07/25 Transmitted 16:14 Folic Acid Tablet PHA 02/08/25 In Process 10:00 Thiamine Tab PHA 02/08/25 In Process 10:00 Multiple Vitamin PHA 02/08/25 In Process Tablet (Mvi Tab) 10:00 Small Bowel Series-W XY 02/08/25 Logged Gastrogra 10:52 *Rn Trainer REFER 02/08/25 Transmitted Referral 10:52 * Hop Strainer CONS 02/08/25 Transmitted Consult Potassium [place] PHA 02/08/25 Transmitted KCL 14:15 Magnesium LAB 02/09/25 Verified 04:00 Dietary Evaluation Review Comments: 1) Advance to [facility] 60gm diet as medically feasible 2) Refer Vacuum Caster for diabetes education 3) Monitor lab values, wt trends, skin trends, I/O Expected Outcomes/Goals: To meet >75% estimated needs Lab values to improve Fu 3-5 days ANJALI MASON RESIDENT Feb 08, 2025 14:13
[2025-02-08] MEDS: GASTROGRAFIN 120 ML SOL ONE (14:47)
[2025-02-08] MEDS: POTASSIUM CHL 20MEQ/100ML 100 ML IV ONE (15:44)
--- NOTE | 2025-02-08 19:13 | DVH ---
Procedure: XY SMALL BOWEL SERIES-W GASTROGRA Reason for study/Clinical History: r/o sbo Comparison Study: None Technique: Single contrast small bowel series performed. FINDINGS/IMPRESSION: Initial customer relations advisor view of the abdomen and pelvis appears demonstrates no acute process. Contrast is identified within the colon by 30 minutes. This represents a rapid small bowel transit t kyree.
[2025-02-09 01:00] VITALS: BP 125/78; PULSE 107; RESP 20; TEMP 97.9; O2SAT 99
[2025-02-09 05:00] VITALS: BP 138/93; PULSE 79; RESP 20; TEMP 98.2; O2SAT 100
[2025-02-09 07:43] LABS: Hematocrit 29.5 % (41.0-53.0); Hemoglobin 9.1 g/dL (13.5-17.5); Mean Corpuscular Hemoglobin 17.2 pg (28.0-32.0); Mean Corpuscular Volume 56.2 fL (80.0-100.0); Nucleated Red Blood Cells % 0.2 %
[2025-02-09] MEDS: METOCLOPRAMIDE HCL 5MG/ml INJ 2ml VIAL IV ONE (07:59)
[2025-02-09 08:00] VITALS: PULSE 75; PULSE 89; O2SAT 100
[2025-02-09 08:05] LABS: Anion Gap 9 (5-15); Carbon Dioxide 26 mmol/L (20-31); Chloride 105 mmol/L (98-107); Sodium 140 mmol/L (136-145)
[2025-02-09 08:06] LABS: Calcium 8.7 mg/dL (8.7-10.4)
[2025-02-09 08:08] LABS: Potassium 2.8 mmol/L (3.5-5.1)
[2025-02-09 08:11] LABS: BUN/Creatinine Ratio 14.1 (10.0-20.0); Blood Urea Nitrogen 10 mg/dL (9-23)
[2025-02-09 08:12] LABS: Magnesium 2.0 mg/dL (1.6-2.6)
[2025-02-09 08:13] LABS: Glucose 74 mg/dL (74-106)
[2025-02-09 09:00] VITALS: BP 143/98; PULSE 77; RESP 17; TEMP 97.8; O2SAT 100
[2025-02-09] MEDS: IRON SUCROSE COMPLEX 110 ML IV ONE (12:28)
[2025-02-09 13:00] VITALS: BP 143/108; PULSE 89; RESP 17; TEMP 97.5; O2SAT 100
[2025-02-09] MEDS: METOCLOPRAMIDE HCL 5MG/ml INJ 2ml VIAL IV SCH (14:00)
[2025-02-09] MEDS ORDERED: LANC-347 XX (16:10)
[2025-02-09] MEDS ORDERED: METO10TA4 PO (16:10)
[2025-02-09] MEDS ORDERED: FOLI-119 PO (16:10)
[2025-02-09] MEDS ORDERED: ALCO1PAD13 XX (16:10)
[2025-02-09] MEDS ORDERED: INSU100I54 SC (16:10)
[2025-02-09] MEDS ORDERED: THIA100T10 PO (16:10)
[2025-02-09] MEDS ORDERED: MULTTAB99 PO (16:10)
[2025-02-09] MEDS ORDERED: FER325T PO (16:12)
--- NOTE | 2025-02-09 16:15 | DVHDSRES ---
Discharge Summary Date of Admission Resident Creating Document: ANJALI MASON RESIDENT Feb 06, 2025 at 10:39 Date of Discharge: Feb 09, 2025 Labs/Diagnostic Data: Laboratory Results Test 02/09/25 12:16 02/09/25 06:35 02/09/25 04:23 02/07/25 04:37 POC Glucose 295 mg/dl (70-106) Stool Occult Blood Positive x 1 (Negative) Stool Occult Blood Sample #2 (Negative) Stool Occult Blood Sample #3 (Negative) White Blood Count 4.6 10^3/uL (4.4-10.8) Red Blood Count 5.26 10^6/uL (4.5-5.90) Hemoglobin 9.1 g/dL (13.5-17.5) Hematocrit 29.5 % (41.0-53.0) Mean Corpuscular Volume 56.2 fL (80.0-100.0) Mean Corpuscular Hemoglobin 17.2 pg (28.0-32.0) Mean Corpuscular Hemoglobin Concent 30.6 g/dL (32.0-36.0) Red Cell Distribution Width 19.2 % (11.8-14.3) Platelet Count 194 10^3/uL (140-450) Mean Platelet Volume 8.2 fL (6.9-10.8) Neutrophils (%) (Auto) 65.0 % (37.0-80.0) Lymphocytes (%) (Auto) 23.2 % (10.0-50.0) Monocytes (%) (Auto) 11.2 % (0.0-12.0) Eosinophils (%) (Auto) 0.4 % (0.0-7.0) Basophils (%) (Auto) 0.2 % (0.0-2.0) Neutrophils # (Auto) 3.0 10 ^3/uL (1.6-8.6) Lymphocytes # (Auto) 1.1 10 ^3/uL (0.4-5.4) Monocytes # (Auto) 0.5 10 ^3/uL (0-1.3) Eosinophils # (Auto) 0 10 ^3/uL (0-0.8) Basophils # (Auto) 0 10 ^3/uL (0-0.2) Nucleated Red Blood Cells 0.2 % Sodium Level 140 mmol/L (136-145) Potassium Level 2.8 mmol/L (3.5-5.1) Chloride Level 105 mmol/L (98-107) Carbon Dioxide Level 26 mmol/L (20-31) Anion Gap 9 (5-15) Blood Urea Nitrogen 10 mg/dL (9-23) Creatinine 0.71 mg/dL (0.700-1.30) Glomerular Filtration Rate Calc 123 mL/min (>90) BUN/Creatinine Ratio 14.1 (10.0-20.0) Serum Glucose 74 mg/dL (74-106) Calcium Level 8.7 mg/dL (8.7-10.4) Magnesium Level 2.0 mg/dL (1.6-2.6) Reticulocyte Count (auto) 2.08 % (0.5-1.5) Phosphorus Level 2.1 mg/dL (2.4-5.1) Iron Level 10 ug/dL (65-175) Total Iron Binding Capacity 383 ug/dL (250-425) Percent Iron Saturation 2.6 % (20-55) Ferritin 12.2 ng/mL (22-322) Total Bilirubin 0.4 mg/dL (0.2-1.0) Aspartate Amino Transferase (AST) 11 U/L (13-40) Alanine Aminotransferase (ALT) < 9 U/L (7-40) Alkaline Phosphatase 95 U/L (46-116) Total Protein 6.6 g/dL (5.7-8.2) Albumin 4.3 g/dL (3.2-4.8) Test 02/06/25 16:34 02/06/25 15:08 02/06/25 11:06 02/06/25 11:00 Lactic Acid Level 1.2 mmol/L (0.4-2.0) Influenza Type A Antigen Negative (Negative) Influenza Type B Antigen Negative (Negative) SARS-CoV-2 Antigen (Rapid) Negative (NEGATIVE) Urine Creatinine 18.74 mg/dL (30.0-125.0) Urine Protein/Creatinine Ratio 0.84 Urine Sodium 50 mmol/L (40-220) Urine Total Protein 15.8 mg/dL (1-14) Urine Opiates Screen Neg (NEGATIVE) Urine Fentanyl Screen Neg (NEGATIVE) Urine Barbiturates Screen Neg (NEGATIVE) Urine Phencyclidine Screen Neg (NEGATIVE) Urine Amphetamines Screen Neg (NEGATIVE) Urine Benzodiazepines Screen Neg (NEGATIVE) Urine Cocaine Screen Neg (NEGATIVE) Urine Cannabinoids Screen Neg (NEGATIVE) Troponin I High Sensitivity 11 ng/L (</=54) Plasma/Serum Blood Alcohol 4.0 mg/dL (<10) Test 02/06/25 09:30 02/06/25 09:06 02/06/25 09:04 Serum Osmolality 336 mOsm/kg (278-298) Direct Bilirubin 0.3 mg/dL (<0.3) B-Type Natriuretic Peptide 24.13 pg/mL (0-100) Beta-Hydroxybutyric Acid > 4.500 mmol/L (< 0.4) Thyroid Stimulating Hormone (TSH) 0.88 uIU/mL (0.55-4.78) Blood Gas Specimen Type Arterial Blood Gas Sample Site Left radial Blood Gas Patient Temperature 37.0 Arterial Blood Date Drawn [id number] Arterial Blood pH 7.412 (7.350-7.450) Arterial Blood Partial Pressure CO2 24.7 mmHg (35.0-48.0) Arterial Blood Partial Pressure O2 93.2 mmHg (83.0-108.0) Arterial Blood HCO3 15.4 mmol/L (21.0-28.0) Arterial Blood Oxygen Saturation 96.0 % (94.0-98.0) Arterial Blood Base Excess -7.7 mmol/L (-2.0-3.0) Arterial Blood Oxyhemoglobin 94.2 % (94.0-98.0) Arterial Blood Carboxyhemoglobin 1.3 % (0.5-1.5) Arterial Blood Methemoglobin 0.6 % (0.0-1.5) Baljit Test Yes Blood Gas Total Hemoglobin 11.00 g/dL (13.5-17.5) Blood Gas Modality Room air FiO2 % 21.0 Urine Color Colorless (Yellow) Urine Clarity Clear (Clear) Urine pH 5.0 (5.0-9.0) Urine Specific [place] 1.014 (1.001-1.035) Urine Protein Negative (Negative) Urine Ketones 4+ (Negative) Urine Blood Negative /uL (Negative) Urine Nitrite Negative (Negative) Urine Bilirubin Negative (Negative) Urine Urobilinogen Normal mg/dL (Negative) Urine Leukocyte Esterase Negative /uL (Negative) Urine RBC 1 /hpf (0 - 3) Urine Microscopic WBC /HPF (0-3) Urine Squamous Epithelial Cells None seen /hpf (<5) Urine Bacteria None seen /hpf (None Seen) Urine Glucose 4+ mg/dL (Normal) Other Laboratory Tests 02/09/25 04:23 Brief Hx & Hospital Course: This is a 34-year-old male with past medical history of hypertension, type 1 diabetes mellitus, dyslipidemia, liver disease, ethanol abuse, previous episodes of DKA who presented to the ED with intractable nausea and vomiting. Patient reports that he has been experiencing GI upset including multiple episodes of nausea and vomiting, patient noted some blood clots in the vomit therefore he came to ER. Patient has a known alcoholic, Reported last alcoholic drink 4 days back, last use insulin was yesterday morning. On arrival to the ER, patient was tachycardic, normotensive, tachypneic. BUN/creatinine elevated. Hypokalemic. Home medications: Basal insulin (Lantus) 20 units at bedside. Patient states that does not follow a basal bolus regimen. He does a sliding scale insulin which do not follow appropriately but do inject the 20 units of Lantus daily. Past medical history: hypertension, type 1 diabetes mellitus, dyslipidemia, liver disease, ethanol abuse, previous episodes of DKA Social history: Reports drinking or daily, denies smoking or drug use During the hospitalization, patient was diagnosed with DKA given anion gap metabolic acidosis, ketonuria ketonemia, patient was started on IV insulin IV fluids, electrolyte were repleted. Anion gap closed and insulin was transition to subcutaneous with Lantus 15 units. Patient was started on sliding scale. Given the gastroenteritis, he was started on IV ceftriaxone and IV metronidazole. IV Protonix was given during the admission given the history of hematemesis, patient never hematemesis, although he had we will yellow clear vomitus during the stay. Clear liquid diet was started, patient is started vomiting Gastrografin series was completed and has been was ruled out, patient has started passing bowel movements and flatus. Diet was increased to full liquid. Patient's blood glucose with adequately controlled with the help of insulin Lantus and sliding scale. Thiamine, folic acid were supplemented given chronic alcoholism and patient was kept on Ativan p.r.n.. KEILA resolved with adequate IV fluid. Given the microcytic iron-deficiency anemia, patient received 2 bags of IV iron. Which the patient tolerated well. 02/09 - patient is hemodynamically stable, clinically stable therefore has been discharge with the following recommendations: -continue insulin lispro 8 units before meal -continue Lantus 20 units daily bedtime -continue metoclopramide b.i.d. twice daily -continue ferrous sulfate Friday/Friday/Friday -continue potassium tablet 10 mEq daily -continue home medication -follow up with the discharge Clinic within 7 days -follow up with primary care physician within next 7 days -follow up with hotel staff member as outpatient Septic shock in the setting of gastro enteritis leading to DKA Diabetic ketoacidosis Uncontrolled diabetes mellitus ? Likely type 1 A1c Anion gap metabolic acidosis Intractable nausea and vomiting with hematemesis Ruled out SBO Sinus tachycardia due to DKA/electrolyte abnormalities/alcoholic withdrawal Acute alcoholic withdrawal KEILA likely due to vasomotornephropathy (septic shock and dehydration) Anemia, microcytic likely iron deficiency Dyslipidemia Hypokalemia Hypomagnesemia Alcohol use dependence Operations or Procedures ORDERING PHYSICIAN: ANJALI MASON PROCEDURE(s): SMBG - SMALL BOWEL SERIES-W GASTROGRA REASON: r/o sbo ORDER NUMBER(s): [id number], ACCESSION NUMBER(s): [id number] Procedure: XY SMALL BOWEL SERIES-W GASTROGRA Reason for study/Clinical History: r/o sbo Comparison Study: None Technique: Single contrast small bowel series performed. FINDINGS/IMPRESSION: Initial machine taper view of the abdomen and pelvis appears demonstrates no acute process. Contrast is identified within the colon by 30 minutes. This represents a rapid small bowel transit time. ATED BY: ADILSON MERRILL Jr., DO DICTATED DATE/TIME: 02/08/251910 SIGNED BY: ADILSON MERRILL Jr., DO SIGNED DATE/TIME: 02/08/251910 CC: Condition at Discharge: Fair Final Diagnosis/Problems List Septic shock in the setting of gastro enteritis leading to DKA Diabetic ketoacidosis Uncontrolled diabetes mellitus ? Likely type 1 A1c Anion gap metabolic acidosis Intractable nausea and vomiting with hematemesis Ruled out SBO Sinus tachycardia due to DKA/electrolyte abnormalities/alcoholic withdrawal Acute alcoholic withdrawal KEILA likely due to vasomotornephropathy (septic shock and dehydration) Anemia, microcytic likely iron deficiency Dyslipidemia Hypokalemia Hypomagnesemia Alcohol use dependence Discharge Disposition: Home Discharge Instruct/Medications Diet: See Comment Diet comment: Continue full liquid diet for the next 7 days, advance as tolerated slowly afterwards Activity: Light activity Follow Up/Referral: Follow up with the discharge Clinic appointment within 7 days Follow up with the primary care physician within 7 days Follow up with the hotel staff member as outpatient Medications: Insulin lispro 8 units premeal before breakfast, lunch and, dinner Insulin Lantus 20 units nighttime daily Metoclopramide tablet twice daily for the next 10 days Ferrous sulfate tablet 3 times a week, Friday/Friday/Friday Scheduled Apixaban Base (Eliquis), 5 MG PO BID Atorvastatin Calcium (Lipitor), 1 TAB PO DAILY Ferrous Sulfate (Ferrous Sulfate), 325 MG PO MWF Flecainide Acetate (Tambocor Tablet), 50 MG PO Q12HR Folic Acid (Folic Acid), 1 MG PO DAILY Insulin Glargine (Basaglar Kwikpen), 20 UNIT SC HS Insulin Lispro (Insulin Lispro Kwikpen), 8 UNIT SC AC Metoclopramide HCl (Metoclopramide Hydrochlor), 10 MG PO BID Metoprolol Succinate (Toprol Xl), 25 MG PO DAILY Multiple Vitamin (Mvi Tab), 1 TAB PO DAILY Pantoprazole Sodium Sesquihydr (Pantoprazole Sodium), 40 MG PO DAILY@0600 Sucralfate (Carafate Susp), 1 GM GT QID@0600,1130,1700,2200 Thiamine Hcl (Vitamin B-1), 100 MG PO DAILY Scheduled PRN Insulin Regular (Human) (Novolin R), 1-15 UNITS SC Q6HPRN PRN Discontinued Medications Insulin Aspart (Insulin Aspart Flexpen), 100 UNIT SC ACHS Insulin Aspart (Insulin Aspart Flexpen), 6 UNIT SC AC Insulin Glargine (Lantus), 28 UNITS SC HS Metronidazole (Metronidazole), 500 MG PO TID Ondansetron HCl (Ondansetron), 4 MG PO BID PRN Pantoprazole Sodium Sesquihydr (Pantoprazole Sodium), 40 MG PO DAILY Durable Medical Equipment Isopropyl Alcohol (Alcohol Swabs), % XX ACHS, (DME) Lancets (Freestyle Lancets), EA XX ACHS, (DME) Discharge Statement: "Patient was advised to return to the ER or call 911 if any headaches, dizziness, shortness of breath, chest pain, abdominal pain, bleeding, fevers, or worsening of medical condition. Patient was counseled about treatment plan, medications, possible side effects, patientverbalized understanding. All questions were answered to the best of my ability. This discharge took greater then 30 minutes in planning, reviewing documentation, counseling the patient, and discussing with other team members." ASSESSMENT ASSESSMENT Assessment DKA - resolved ANJALI MASON RESIDENT Feb 09, 2025 16:15
[2025-02-09 16:52] VITALS: BP 150/110; PULSE 79; RESP 18; TEMP 97; O2SAT 100
[2025-02-09] MEDS ORDERED: POTA-215 PO (18:11)
[2025-02-09] MEDS ORDERED: POTASSIUM CHL 20MEQ/100ML 100 ML IV SCH (18:15)
== END 2025-02-09 15:45 | disposition home or self-care (01) | DRG 720 ==
LOC: EDBD 08:42 → ER 08:42 → OVERFLOW 10:39 → TELE-WESTW 02-07 14:11
PROVIDERS: ADMIT Student in an Organized Health Care Education/Training Program; ATTEND Student in an Organized Health Care Education/Training Program
DX: A41.9 Sepsis, unspecified organism (principal); N17.0 Acute kidney failure with tubular necrosis; R65.21 Severe sepsis with septic shock; E10.10 Type 1 diabetes mellitus with ketoacidosis without coma; K92.0 Hematemesis; E78.5 Hyperlipidemia, unspecified; Z20.822 Contact with and (suspected) exposure to COVID-19; E87.6 Hypokalemia; D50.9 Iron deficiency anemia, unspecified; K52.9 Noninfective gastroenteritis and colitis, unspecified; I10 Essential (primary) hypertension; F10.239 Alcohol dependence with withdrawal, unspecified; E83.42 Hypomagnesemia; Z79.899 Other long term (current) drug therapy; Z91.128 Patient's intentional underdosing of medication regimen for other reason; Y90.0 Blood alcohol level of less than 20 mg/100 ml
CPT/HCPCS: 36415; 36600; 71045; 74018; 74250; 80048; 80053; 80076; 80307; 80320; 81001; 82010; 82270; 82570; 82728; 82805; 82962; 83540; 83550; 83605; 83735; 83880; 83930; 84100; 84156; 84300; 84443; 84484; 85025; 85045; 87081; 87426; 87804; 96365; 99291; 99292; G0378; J1756; J1815; J2405; J2470; J3480; J3490; J7060

== ENCOUNTER 2025-02-25 10:57 | Inpatient (IN) | payer MEDICAID ==
[~2025-02-25] VITALS: Ht 170.2 cm; Wt 61.7 kg
[~2025-02-25 10:57] MED LIST changes: +ALCO1PAD13 XX; +FER325T PO; +FOLI-119 PO; -INSLANTI SC; -INSU100I51 SC; +INSU100I54 SC; +LANC-347 XX; -MET500T PO; +METO10TA4 PO; +MULTTAB99 PO; -ONDA-155 PO; +POTA-215 PO; +THIA100T10 PO
--- NOTE | 2025-02-25 11:21 | ED.PDOC ---
History of Present Illness HPI Comments 34-year-old male with a history of hyperlipidemia, diabetes, seizures, and alcohol abuse, was brought in by emergency services with a chief complaint of generalized weakness with the associated frequent urination, and nausea/vomiting. Patient states that his symptoms have been onset for the past day no alleviating factors. Emergency services notes the patient's blood sugar was up in the 400s on route, as well as being tachycardic in the 120s. Patient does note that he took his insulin a few hours before arriving to the emergency department. Patient denies any diarrhea, chest pain, headache, or any other associated symptoms, modifiers at this time. Time Seen by MD: 11:17 Primary Care Provider: UNKNOWN Reviewed Notes: Nurses Notes, Clinical Resource Nurse Notes, Medications, Allergies Allergies: Coded Allergies: NO KNOWN ALLERGIES (Unverified , 06/03/22) Home Meds Active Scripts Potassium Chloride (Klor-Con M10) 10 Meq Tab, 10 MEQ PO DAILY for 10 Days, #10 T AB 0 [facility]25 Ferrous Sulfate (FERROUS SULFATE) 325 Mg Tb, 325 MG PO MWF for 30 Days, #30 TAB 0 [facility]ills [facility] 02/09/25 Lancets (Freestyle Lancets) Lancets Mis, EA XX ACHS, #120 A.c. [facility] Isopropyl Alcohol (Alcohol Swabs) 70 % Pad, % XX ACHS, #120 A.c. HS [facility] 02/09/25 Insulin Lispro (Insulin Lispro Kwikpen) 100 Unit/Ml Inj, 8 UNIT SC AC for 30 Days, #5 INJ 0 [facility]ills [facility] 02/09/25 Metoclopramide HCl (Metoclopramide Hydrochlor) 10 Mg Tab, 10 MG PO BID for 10 Days, #20 TAB 0 [facility]ills [facility] 02/09/25 Thiamine Hcl (VITAMIN B-1) 100 Mg Tb, 100 MG PO DAILY for 30 Days, #30 TAB [facility] 02/09/25 Multiple Vitamin (Mvi Tab) 1 Tab Tb, 1 TAB PO DAILY for 30 Days, #30 TAB [facility] 02/09/25 Folic Acid (Folic Acid) 1 Mg Tab, 1 MG PO DAILY for 30 Days, #30 TAB Prov:ANJALI MASON [facility] 02/09/25 Insulin Glargine (Basaglar Kwikpen) 100 Unit/Ml Inj, 20 UNIT SC HS for 30 Days, #7 INJ Please provide patient appropriate needles and administration pen to go with all insulin. Prov:COREEN VILLALTA [employer] 01/03/25 Apixaban Base (ELIQUIS) 5 Mg Tab, 5 MG PO BID for 30 Days, #60 TAB Prov:MILLY CORRAL [facility] 09/06/24 Sucralfate (CARAFATE SUSP) 1 Gm/10 Ml Ss, 1 GM GT QID@0600,1130,1700,2200 for 30 Days, #120 ML Prov:MILLY CORRAL [facility] 09/06/24 Metoprolol Succinate (Toprol Xl) 50 Mg Tab, 25 MG PO DAILY for 30 Days, #15 TAB Prov:MILLY CORRAL [facility]IDENT 09/06/24 Flecainide Acetate (TAMBOCOR TABLET) 50 Mg Tb, 50 MG PO Q12HR for 30 Days, #60 TAB Prov:MILLY CORRAL [facility] 09/06/24 Pantoprazole Sodium Sesquihydr (Pantoprazole Sodium) 40 Mg Tab, 40 MG PO DAILY@0600 for 30 Days, #30 TAB Prov:RIZWANA RODRIGUEZ RESIDENT 12/03/23 Insulin Regular (Human) (Novolin R) 100 Unit/Ml Inj, 1-15 UNITS SC Q6HPRN PRN for 30 Days, #5 INJ 0 Refills take 1-15 units Q6hr ACHS per sliding scale Prov:VERENA BAUTISTA MD 11/07/21 Atorvastatin Calcium (Lipitor) 20 Mg Tab, 1 TAB PO DAILY, #30 TAB Prov:VERENA BAUTISTA MD 11/07/21 Information Source: Patient, Emergency Med Personnel Mode of Arrival: EMS Severity: Moderate Timing: Hours Duration: Since onset, Hours Prehospital treatment: 12 Lead EKG, Accucheck, Spinning Bath Person, IVF Past Medical History PAST MEDICAL HISTORY: DM, High Lipids, HTN, Liver, Seizures Surgical History: Denies all surgeries Family History Family History: Family hx of heart mary Social History Smoker: Non-Smoker Alcohol: Heavy Drugs: Denies Drug Use Lives In: Home Constitutional: reports: weakness; denies: chills, diaphoresis, fatigue, fever, malaise, sweats, others EENTM: denies: blurred vision, double vision, ear bleeding, ear discharge, ear drainage, ear pain, ear ringing, eye pain, eye redness, hearing loss, mouth pain, mouth swelling, nasal discharge, nose bleeding, nose congestion, nose pain, photophobia, tearing, throat pain, throat swelling, voice changes, others Respiratory: denies: cough, hemoptysis, orthopnea, SOB at rest, shortness of breath, SOB with excertion, stridor, wheezing, others Cardiovascular: denies: chest pain, dizzy spells, diaphoresis, Dyspnea on exertion, edema, irregular heart beat, left arm pain, lightheadedness, palpitations, PND, syncope, others Gastrointestinal: reports: nausea, vomiting; denies: abdomen distended, abdo eleanor pain, blood streaked bowels, constipated, diarrhea, dysphagia, difficulty swallowing, hematemesis, melena, poor appetite, poor fluid intake, rectal bleeding, rectal pain, others Genitourinary: reports: frequency; denies: burning, dysuria, flank pain, hematuria, incontinence, penile discharge, penile sore, pain, testicle pain, testicle swelling, urgency, others Neurological: denies: dizziness, fainting, headache, left sided numbness, left sided weakness, numbness, paresthesia, pre-existing deficit, right sided numbness, right sided weakness, seizure, speech problems, tingling, tremors, weakness, others Musculoskeletal: denies: back pain, gout, joint pain, joint swelling, muscle pain, muscle stiffness, neck pain, others Integumetry: denies: bruises, change in color, change in hair/nails, dryness, laceration, lesions, lumps, rash, wounds, others Allergic/Immunocompromised: denies: Difficulty Healing, Frequent Infections, Hives, Itching, others Hematologic/Lymphatic: denies: anemia, blood clots, easy bleeding, easy bruising, swollen glands, others Endocrine: denies: excessive hunger, excessive sweating, excessive thirst, excessive urination, flushing, intolerance to cold, intolerance to heat, unexplained weight gain, unexplained weight loss, others Psychiatric: denies: anxiety, bipolar disorder, depression, hopeless, panic disorder, schizophrenia, sleepless, suicidal, others All Other Systems: Reviewed and Negative Physical Exam General Appearance: Moderate Distress, Normal HEENT: Normal ENT Inspection, Pharynx Normal, TMs Normal Neck: Full Range of Motion, Non-Tender, Normal, Normal Inspection Respiratory: Chest Non-Tender, Lungs Clear, No Accessory Muscle Use, No Respiratory Distress, Normal Breath Sounds Cardiovascular: No Edema, No JVD, No Murmur, No Gallop, Normal Peripheral Pulses, Tachycardia Breast Exam: Deferred Gastrointestinal: No Organomegaly, Non Tender, No Pulsatile Mass, Normal Bowel Sounds, Soft Genitalia: Deferred Pelvic: Deferred Rectal: Deferred Extremities: No calf tenderness, Normal capillary refill, Normal inspection, Normal range of motion, Non-tender, No pedal edema Musculoskeletal : Apperance: Normal Neurologic: Alert, 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 Was a procedure done?: No Differential Dx Considerations may include: AKA, dehydration, hyperglycemia, food poisoning, drug ingestion X-Ray, Labs, Meds, VS Vital Signs Date Time Temp Pulse Resp B/P (MAP) Pulse Ox O2 Delivery O2 Flow Rate FiO2 02/25/25 11:22 98.1 117 18 141/81 97 98.1 Lab Test 02/25/25 11:41 Range/Units Blood Gas Specimen Type Arterial Blood Gas Sample Site Left radial Blood Gas Patient Temperature 37.0 Arterial Blood Date Drawn [id number] Arterial Blood pH 7.498 H 7.350-7.450 Arterial Blood Partial Pressure CO2 35.3 35.0-48.0 mmHg Arterial Blood Partial Pressure O2 59.3 L 83.0-108.0 mmHg Arterial Blood HCO3 26.8 21.0-28.0 mmol/L Arterial Blood Oxygen Saturation 91.5 L 94.0-98.0 % Arterial Blood Base Excess 3.7 H -2.0-3.0 mmol/L Arterial Blood Oxyhemoglobin 89.9 L 94.0-98.0 % Arterial Blood Carboxyhemoglobin 1.1 0.5-1.5 % Arterial Blood Methemoglobin 0.6 0.0-1.5 % Baljit Test Yes Blood Gas Total Hemoglobin 12.60 L 13.5-17.5 g/dL Blood Gas Modality Room air FiO2 % 21.0 Patient alert. Tachycardia. Saturation pristine on room air. Blood sugar elevated. Establish intravenous access Was given fluids Was given insulin Reviewed his history. ABG within normal limits. Explained to the patient. Continue monitoring. Time of 1ST Reevaluation: 11:52 Reevaluation 1ST: Unchanged Patient Education/Counseling: Diagnosis, Treatment, Need For Follow Up Family Education/Counseling: No Family Present SEPSIS Sepsis Screen Physician Orders Insulin Drip Protocol (02/25/25 ) Sodium Chloride 0.9% (02/25/25 11:30) Sodium Chloride 0.9% (02/25/25 15:30) Sodium Chloride 0.9% (02/25/25 17:30) Insulin Drip 100 Unit/100ml (Myxredlin 1 (02/25/25 11:30) Dextrose 50% Syringe (02/25/25 11:30) Glucose Blood (Accu-Chek Comfort Curve T (02/25/25 12:00) Complete Blood Count (02/25/25 11:21) Basic Metabolic Panel (02/25/25 11:21) Phosphorus (02/25/25 11:21) Magnesium (02/25/25 11:21) Osmolality, Serum (02/25/25 11:21) Abg W/ Co-Ox (02/25/25 11:21) Basic Metabolic Panel (02/25/25 17:21) Basic Metabolic Panel (02/25/25 23:21) Basic Metabolic Panel (02/26/25 05:21) Urinalysis (02/25/25 11:21) Neurological Assessment (02/25/25 11:21) Vs/Hemodynamics .PER UNIT PROTOCOL (02/25/25 11:21) Acetone (02/25/25 11:21) Insulin Lantus (Glargine) (Lantus) (02/26/25 10:00) Vital Signs Date Time Temp Pulse Resp B/P (MAP) Pulse Ox O2 Delivery O2 Flow Rate FiO2 02/25/25 11:22 98.1 117 18 141/81 97 98.1 Departure 1 Departure Time of Disposition: 11:53 Impression: Primary Impression: Uncontrolled diabetes mellitus Qualified Codes: E13.65 - Other specified diabetes mellitus with hyperglycemia Disposition: ADMITTED INPATIENT Admit to: Med Surg Condition: Guarded Critical Care Note Critical Care Time?: Yes (90 min-critical care time only) Stability Stability form required: No Heart Score Heart Score: Heart Score Response (Comments) Value History N/A 0 EKG N/A 0 Age N/A 0 Risk Factors N/A 0 Troponin N/A 0 Total 0 I personally scribed for REJI REGAN MD ([email or web address]) on 02/25/25 at 11:21. Electronically submitted by Aaron Pina ([email or web address]). REJI REGAN MD Feb 25, 2025 11:21
[2025-02-25] MEDS ORDERED: DEXTROSE (50%) 50ML SYRG IV PRN (11:30)
[2025-02-25] MEDS: SODIUM CHLORIDE 0.9% 1,000 ML IV SCH ×3 (11:30→17:30)
[2025-02-25] MEDS: INSULIN LANTUS (GLARGINE) 1 /0.01ml (100units/ml) SC ONE (11:30)
[2025-02-25 11:47] LABS: Base Excess 3.7 mmol/L (-2.0-3.0)
[2025-02-25 12:08] LABS: Nucleated Red Blood Cells % 0.0 %
[2025-02-25 12:10] LABS: Hematocrit 40.1 % (41.0-53.0); Hemoglobin 11.9 g/dL (13.5-17.5); Mean Corpuscular Hemoglobin 18.2 pg (28.0-32.0); Mean Corpuscular Volume 61.3 fL (80.0-100.0)
[2025-02-25 12:14] LABS: Carbon Dioxide 26 mmol/L (20-31)
[2025-02-25 12:16] LABS: Calcium 8.5 mg/dL (8.7-10.4)
[2025-02-25 12:19] LABS: BUN/Creatinine Ratio 19.1 (10.0-20.0)
[2025-02-25 12:31] LABS: Anion Gap 27 (5-15); Blood Urea Nitrogen 35 mg/dL (9-23); Chloride 77 mmol/L (98-107); Glucose 459 mg/dL (74-106); Magnesium 2.7 mg/dL (1.6-2.6); Sodium 130 mmol/L (136-145)
[2025-02-25 12:32] LABS: Potassium 2.4 mmol/L (3.5-5.1)
[2025-02-25 12:40] LABS: Anisocytosis Slight
[2025-02-25] MEDS: POTASSIUM CHL 20MEQ/100ML 100 ML IV ONE (12:53)
[2025-02-25] MEDS: ACCU-CHEK COMFORT CURVE STRIP VI SCH (13:30)
[2025-02-25] MEDS: INSULIN DRIP 100 UNIT/100ML 100 ML IV SCH (13:30)
[2025-02-25 15:11] LABS: Anion Gap 21 (5-15); Carbon Dioxide 28 mmol/L (20-31)
[2025-02-25 15:16] LABS: BUN/Creatinine Ratio 23.8 (10.0-20.0)
[2025-02-25 15:18] LABS: Blood Urea Nitrogen 40 mg/dL (9-23); Calcium 8.1 mg/dL (8.7-10.4); Chloride 86 mmol/L (98-107); Glucose 297 mg/dL (74-106); Sodium 135 mmol/L (136-145)
[2025-02-25 15:19] LABS: Potassium 2.5 mmol/L (3.5-5.1)
--- NOTE | 2025-02-25 16:22 | DVHHP2 ---
Admitting Diagnosis: Nausea and vomiting History of Present Illness 34-year-old male with a history of hyperlipidemia, diabetes, seizures, and alcohol abuse, was brought in by emergency services with a chief complaint of generalized weakness with the associated frequent urination, and nausea/vomiting. Patient states that his symptoms have been onset for the past day no alleviating factors. Emergency services notes the patient's blood sugar was up in the 400s on route, as well as being tachycardic in the 120s. Patient does note that he took his insulin a few hours before arriving to the emergency department. Patient denies any diarrhea, chest pain, headache, or any other associated symptoms, modifiers at this time. PAST MEDICAL HISTORY: DM, High Lipids, HTN, Liver, Seizures Surgical History: Denies all surgeries Family History Family History: Family hx of heart mary Social History Smoker: Non-Smoker Alcohol: Heavy Drugs: Denies Drug Use Lives In: Home Patient Family History: Asthma G8 MOTHER FH: cancer G8 MOTHER Hypercholesterolemia G8 MOTHER Hypertension G8 MOTHER Allergies: Coded Allergies: NO KNOWN ALLERGIES (Unverified , 06/03/22) Home Meds Active Scripts Potassium Chloride (Klor-Con M10) 10 Meq Tab, 10 MEQ PO DAILY for 10 Days, #10 TAB 0 [facility] Ferrous Sulfate (FERROUS SULFATE) 325 Mg Tb, 325 MG PO MWF for 30 Days, #30 TAB 0 [facility] 02/09/25 Lancets (Freestyle Lancets) Lancets Mis, EA XX ACHS, #120 A.c. HS [facility] 02/09/25 Isopropyl Alcohol (Alcohol Swabs) 70 % Pad, % XX ACHS, #120 A.c. HS [facility] 02/09/25 Insulin Lispro (Insulin Lispro Kwikpen) 100 Unit/Ml Inj, 8 UNIT SC AC for 30 Days, #5 INJ 0 [facility] 02/09/25 Metoclopramide HCl (Metoclopramide Hydrochlor) 10 Mg Tab, 10 MG PO BID for 10 Days, #20 TAB 0 [facility] 02/09/25 Thiamine Hcl (VITAMIN B-1) 100 Mg Tb, 100 MG PO DAILY for 30 Days, #30 TAB [facility]25 Multiple Vitamin (Mvi Tab) 1 Tab Tb, 1 TAB PO DAILY for 30 Days, #30 TAB Prov:ANJALI MASON [facility] 02/09/25 Folic Acid (Folic Acid) 1 Mg Tab, 1 MG PO DAILY for 30 Days, #30 TAB Prov:ANJALI [facility]ON [facility] 02/09/25 Insulin Glargine (Basaglar Kwikpen) 100 Unit/Ml Inj, 20 UNIT SC HS for 30 Days, #7 INJ Please provide patient appropriate needles and administration pen to go with all insulin. Prov:COREEN VILLALTA [employer] 01/03/25 Apixaban Base (ELIQUIS) 5 Mg Tab, 5 MG PO BID for 30 Days, #60 TAB Prov:MILLY CORRAL [facility] 09/06/24 Sucralfate (CARAFATE SUSP) 1 Gm/10 Ml Ss, 1 GM GT QID@0600,1130,1700,2200 for 30 Days, #120 ML Prov:MILLY CORRAL [facility] 09/06/24 Metoprolol Succinate (Toprol Xl) 50 Mg Tab, 25 MG PO DAILY for 30 Days, #15 TAB Prov:MILLY CORRAL [facility] 09/06/24 Flecainide Acetate (TAMBOCOR TABLET) 50 Mg Tb, 50 MG PO Q12HR for 30 Days, #60 TAB Prov:MILLY CORRAL [facility] 09/06/24 Pantoprazole Sodium Sesquihydr (Pantoprazole Sodium) 40 Mg Tab, 40 MG PO DAILY@0600 for 30 Days, #30 TAB Prov:RIZWANA RODRIGUEZ RESIDENT 12/03/23 Insulin Regular (Human) (Novolin R) 100 Unit/Ml Inj, 1-15 UNITS SC Q6HPRN PRN for 30 Days, #5 INJ 0 Refills take 1-15 units Q6hr ACHS per sliding scale Prov:VERENA BAUTISTA MD 11/07/21 Atorvastatin Calcium (Lipitor) 20 Mg Tab, 1 TAB PO DAILY, #30 TAB Prov:VERENA BAUTISTA MD 11/07/21 Current Medications Current Medications Medications (Trade) Dose Ordered Sig/Lazaro Route PRN Reason Start Time Stop Time Status Last Admin Sodium Chloride 1,000 ml @ 500 mls/hr Q2H IV 02/25/25 11:30 02/25/25 15:29 DC 02/25/25 14:34 Sodium Chloride 1,000 ml @ 250 mls/hr Q4H IV 02/25/25 15:30 02/25/25 16:48 DC 02/25/25 15:45 Sodium Chloride 1,000 ml @ 150 mls/hr Q6H40M IV 02/25/25 17:30 Insulin Human (Reg)/Sodium Chloride 100 ml @ 0.5 mls/hr Q24H IV 02/25/25 11:30 02/25/25 13:30 Dextrose 50 ml UD PRN IV SEE CURRENT ALGORITHM or SCALE 02/25/25 11:30 Diagnostic Test (Pha) (Accu-Chek Comfort Curve T) 1 strip Q90MIN 02/25/25 12:00 02/25/25 18:05 Insulin Glargine (Lantus) 15 units DAILY SC 02/26/25 10:00 Potassium Chloride 100 ml @ 50 mls/hr Q2H IV 02/25/25 16:15 02/26/25 00:14 02/25/25 16:49 Apixaban (Eliquis) 5 mg BID PO 02/25/25 22:00 UNV Atorvastatin Calcium (Lipitor) 20 mg DAILY PO 02/26/25 10:00 UNV Ferrous Sulfate 325 mg MWF PO 02/28/25 10:00 UNV Flecainide Acetate (Tambocor Tablet) 50 mg Q12HR PO 02/25/25 22:00 UNV Metoprolol Succinate (Toprol Xl) 25 mg DAILY PO 02/26/25 10:00 UNV Pantoprazole Sodium (Protonix Tablet) 40 mg DAILY@0600 PO 02/26/25 06:00 UNV Thiamine HCl 100 mg DAILY PO 02/26/25 10:00 UNV Patient Own Medication 1 mg DAILY PO 02/26/25 10:00 UNV Hydralazine HCl (Apresoline Injection) 10 mg Q6HP PRN IV SBP>150 02/25/25 16:30 Vital Signs Vital Signs Date Time Temp Pulse Resp B/P (MAP) Pulse Ox O2 Delivery O2 Flow Rate FiO2 02/25/25 18:07 114 14 149/97 (114) 100 02/25/25 11:30 98.1 98.1 02/25/25 11:30 Room Air* 0 21 Physical Exam Generally-34 years old male, well nourished well developed. Moderate distress HEENT-atraumatic normocephalic Heart-irregular rate and regular Lungs clear to auscultate bilaterally Abdomen soft moderate tender nondistended Musculoskeletal-no edema cyanosis Neuro-AO x3, no focal deficits SEPSIS Sepsis Screen Date sepsis recognized/suspect: Feb 25, 2025 Time Sepsis recognized/suspect: 1214 Recent Procedure: No On Antibiotic Therapy: No Respiratory Rate >20: No Heart Rate >90: Yes Temp<36 C (96.8 F) or >38.3 C: No SBP <90 or MAP <65 mmHG: No New Acute Mental Status Change: No Is the patient on CPAP, BIPAP,: No Physician Orders Insulin Drip Protocol (02/25/25 ) Sodium Chloride 0.9% (02/25/25 17:30) Insulin Drip 100 Unit/100ml (Myxredlin 1 (02/25/25 11:30) Dextrose 50% Syringe (02/25/25 11:30) Glucose Blood (Accu-Chek Comfort Curve T (02/25/25 12:00) Abg W/ Co-Ox (02/25/25 11:21) Basic Metabolic Panel (02/25/25 23:21) Basic Metabolic Panel (02/26/25 05:21) Neurological Assessment (02/25/25 11:21) Vs/Hemodynamics .PER UNIT PROTOCOL (02/25/25 11:21) Insulin Lantus (Glargine) (Lantus) (02/26/25 10:00) Potassium Chl 20meq/100ml (02/25/25 16:15) Sodium Chloride 0.9% (02/25/25 16:15) Sodium Chloride 0.9% (02/25/25 16:15) Npo Except For Medications (02/25/25 16:14) Npo (Nothing By Mouth) Diet (02/25/25 Dinner) Complete Blood Count (02/26/25 05:00) Complete Blood Count (02/27/25 05:00) Complete Blood Count (02/28/25 05:00) Complete Blood Count (03/01/25 05:00) Complete Blood Count (03/02/25 05:00) Apixaban (Eliquis) (02/25/25 22:00) Atorvastatin (Lipitor) (02/26/25 10:00) Ferrous Sulfate Tablet (02/28/25 10:00) Flecainide Tablet (Tambocor Tablet) (02/25/25 22:00) Metoprolol Xl Succinate (Toprol Xl) (02/26/25 10:00) Pantoprazole Tablet (Protonix Tablet) (02/26/25 06:00) Thiamine Tab (02/26/25 10:00) (Nf) Folic Acid (02/26/25 10:00) Hydralazine Injection (Apresoline Inject (02/25/25 16:30) Communication Order (02/25/25 16:42) Vital Signs Date Time Temp Pulse Resp B/P (MAP) Pulse Ox O2 Delivery O2 Flow Rate FiO2 02/25/25 18:07 114 14 149/97 (114) 100 02/25/25 16:05 104 14 143/94 (110) 100 02/25/25 15:15 108 16 150/109 (123) 100 02/25/25 14:34 151/113 02/25/25 14:15 126 17 151/113 (126) 99 02/25/25 13:15 121 16 139/102 (114) 99 02/25/25 12:15 120 19 133/96 (108) 99 02/25/25 11:30 98.1 111 15 150/109 (123) 94 98.1 02/25/25 11:30 Room Air* 0 21 02/25/25 11:22 98.1 117 18 141/81 97 98.1 Laboratory Tests Test 02/25/25 11:46 White Blood Count 11.8 10^3/uL (4.4-10.8) H Medications Medications Dose Ordered Sig/Lazaro Route Start Time Stop Time Status Last Admin Dose Admin Amlodipine Besylate 10 mg ONCE ONCE PO 02/25/25 14:30 02/25/25 14:31 DC 02/25/25 14:34 Diagnostic Test (Pha) 1 strip Q90MIN 02/25/25 12:00 02/25/25 18:05 Insulin Human (Reg)/Sodium Chloride 100 ml @ 0.5 mls/hr Q24H IV 02/25/25 11:30 02/25/25 13:30 Potassium Chloride 100 ml @ 50 mls/hr ONCE ONCE IV 02/25/25 12:45 02/25/25 14:44 DC 02/25/25 12:53 Potassium Chloride 100 ml @ 50 mls/hr Q2H IV 02/25/25 16:15 02/26/25 00:14 02/25/25 16:49 Sodium Chloride 1,000 ml @ 250 mls/hr Q4H IV 02/25/25 15:30 02/25/25 16:48 DC 02/25/25 15:45 Sodium Chloride 1,000 ml @ 500 mls/hr Q2H IV 02/25/25 11:30 02/25/25 15:29 DC 02/25/25 14:34 Sodium Chloride 3,000 ml @ 1,000 mls/hr Q3H ONCE IV 02/25/25 16:15 02/25/25 19:14 02/25/25 16:45 Results Labs Test 02/25/25 18:04 02/25/25 17:46 02/25/25 16:28 02/25/25 11:46 Range/Units POC Glucose 164 H 70-106 mg/dl Sodium Level 139 136-145 mmol/L Potassium Level 2.9 L 3.5-5.1 mmol/L Chloride Level 95 L 98-107 mmol/L Carbon Dioxide Level 29 20-31 mmol/L Anion Gap 15 5-15 Blood Urea Nitrogen 33 H 9-23 mg/dL Creatinine 1.10 0.700-1.30 mg/dL Glomerular Filtration Rate Calc 90 >90 mL/min BUN/Creatinine Ratio 30.0 H 10.0-20.0 Serum Glucose 142 #H 74-106 mg/dL Calcium Level 7.4 L 8.7-10.4 mg/dL Urine Color Light-yellow Yellow Urine Clarity Clear Clear Urine pH 5.0 5.0-9.0 Urine Specific [place] 1.017 1.001-1.035 Urine Protein Negative Negative Urine Ketones 3+ H Negative Urine Blood Negative Negative /uL Urine Nitrite Negative Negative Urine Bilirubin Negative Negative Urine Urobilinogen Normal Negative mg/dL Urine Leukocyte Esterase Negative Negative /uL Urine RBC 2 0 - 3 /hpf Urine Microscopic WBC 1 0-3 /HPF Urine Squamous Epithelial Cells Few <5 /hpf Urine Bacteria None seen None Seen /hpf Urine Yeast (Budding) Occasional None Seen /hpf Urine Glucose 4+ H Normal mg/dL White Blood Count 11.8 H 4.4-10.8 10^3/uL Red Blood Count 6.54 H 4.5-5.90 10^6/uL Hemoglobin 11.9 L 13.5-17.5 g/dL Hematocrit 40.1 L 41.0-53.0 % Mean Corpuscular Volume 61.3 L 80.0-100.0 fL Mean Corpuscular Hemoglobin 18.2 L 28.0-32.0 pg Mean Corpuscular Hemoglobin Concent 29.7 L 32.0-36.0 g/dL Red Cell Distribution Width 24.0 H 11.8-14.3 % Platelet Count 280 140-450 10^3/uL Mean Platelet Volume 8.3 6.9-10.8 fL Neutrophils (%) (Auto) 90.9 H 37.0-80.0 % Lymphocytes (%) (Auto) 2.8 L 10.0-50.0 % Monocytes (%) (Auto) 5.4 0.0-12.0 % Eosinophils (%) (Auto) 0.5 0.0-7.0 % Basophils (%) (Auto) 0.4 0.0-2.0 % Neutrophils # (Auto) 10.7 H 1.6-8.6 10 ^3/uL Lymphocytes # (Auto) 0.3 L 0.4-5.4 10 ^3/uL Monocytes # (Auto) 0.6 0-1.3 10 ^3/uL Eosinophils # (Auto) 0.1 0-0.8 10 ^3/uL Basophils # (Auto) 0 0-0.2 10 ^3/uL Nucleated Red Blood Cells 0.0 % Platelet Estimate Adequate Hypochromasia (manual) Marked Anisocytosis (manual) Slight Microcytosis Marked Serum Osmolality 319 H 278-298 mOsm/kg Phosphorus Level 5.1 2.4-5.1 mg/dL Magnesium Level 2.7 H 1.6-2.6 mg/dL Beta-Hydroxybutyric Acid > 4.500 H < 0.4 mmol/L Test 02/25/25 11:41 Range/Units Blood Gas Specimen Type Arterial Blood Gas Sample Site Left radial Blood Gas Patient Temperature 37.0 Arterial Blood Date Drawn [id number] Arterial Blood pH 7.498 H 7.350-7.450 Arterial Blood Partial Pressure CO2 35.3 35.0-48.0 mmHg Arterial Blood Partial Pressure O2 59.3 L 83.0-108.0 mmHg Arterial Blood HCO3 26.8 21.0-28.0 mmol/L Arterial Blood Oxygen Saturation 91.5 L 94.0-98.0 % Arterial Blood Base Excess 3.7 H -2.0-3.0 mmol/L Arterial Blood Oxyhemoglobin 89.9 L 94.0-98.0 % Arterial Blood Carboxyhemoglobin 1.1 0.5-1.5 % Arterial Blood Methemoglobin 0.6 0.0-1.5 % Baljit Test Yes Blood Gas Total Hemoglobin 12.60 L 13.5-17.5 g/dL Blood Gas Modality Room air FiO2 % 21.0 Primary Diagnosis DKA Hypokalemia KEILA Severe dehydration Plan Elevated beta hydroxybutyrate, elevated hyperglycemia, pending UA Insulin drip started in ED. IV fluids 3 L ordered NS at 150 cc an hours Replete potassium. If potassium less than 3.4 hold insulin drip to avoid hypokalemia Trend BNP q.6 hours When patient DKA resolved resume home dose insulin NPO except meds Full code Eliquis b.i.d. for DVT prophylaxis PPI for GI prophylaxis Plan discussed with: Patient Problems List: (1) DKA (diabetic ketoacidoses) Status: Acute Date of Service: Feb 25, 2025 Billing Provider: FRANCA HERRERA MD Common Visit Codes: [id number] CARE 30-74 MIN, [id number] CARE-EACH +30MIN FRANCA HERRERA MD Feb 25, 2025 16:22
[2025-02-25] MEDS ORDERED: hydrALAZINE HCL 20 MG/ML VL IV PRN (16:30)
[2025-02-25 16:44] LABS: Urine Budding Yeast OCCASIONAL /hpf (None Seen); Urine Protein, UAD Negative (Negative)
[2025-02-25] MEDS: SODIUM CHLORIDE 0.9% 3,000 ML IV ONE (16:45)
[2025-02-25] MEDS: POTASSIUM CHL 20MEQ/100ML 100 ML IV SCH (16:49)
[2025-02-25 18:10] LABS: Sodium 139 mmol/L (136-145)
[2025-02-25 18:11] LABS: Anion Gap 15 (5-15); Carbon Dioxide 29 mmol/L (20-31); Chloride 95 mmol/L (98-107); Potassium 2.9 mmol/L (3.5-5.1)
[2025-02-25 18:12] LABS: Calcium 7.4 mg/dL (8.7-10.4)
[2025-02-25 18:16] LABS: BUN/Creatinine Ratio 30.0 (10.0-20.0)
[2025-02-25 18:20] LABS: Blood Urea Nitrogen 33 mg/dL (9-23); Glucose 142 mg/dL (74-106)
[2025-02-25] MEDS: SODIUM CHLORIDE 0.9% 1,000 ML IV ONE (18:30)
[2025-02-25] MEDS ORDERED: ACETAMINOPHEN 325 MG TAB PO PRN (19:00)
[2025-02-25] MEDS ORDERED: HYDROmorphone HCL 2 MG/ML VL/or syr IV PRN (19:00)
[2025-02-25] MEDS ORDERED: HYDROcodone-ACET 5/325MG TAB PO PRN (19:00)
[2025-02-25 19:30] VITALS: PULSE 102; RESP 15; O2SAT 100
[2025-02-25] MEDS: ONDANSETRON HCL 4 MG/2 ML VIAL IV PRN (21:33)
[2025-02-25] MEDS: SODIUM CHLOR 0.9% PF (SALINE LOCK) 10ML VIAL/SYR IV SCH (21:52)
[2025-02-25] MEDS: APIXABAN 5 MG TAB PO SCH (22:19)
[2025-02-25] MEDS: FLECAINIDE ACETATE 50 MG TAB PO SCH (22:36)
[2025-02-26] VITALS (82 sets, daily range): BP systolic 91–176; BP diastolic 44–108; PULSE 54–130; RESP 8–25; TEMP 96.6–98.5; O2SAT 95–100
[2025-02-26 01:29] LABS: Chloride 104 mmol/L (98-107); Potassium 4.1 mmol/L (3.5-5.1); Sodium 141 mmol/L (136-145)
[2025-02-26 01:35] LABS: Anion Gap 21 (5-15); BUN/Creatinine Ratio 13.1 (10.0-20.0); Blood Urea Nitrogen 13 mg/dL (9-23); Calcium 7.4 mg/dL (8.7-10.4); Carbon Dioxide 16 mmol/L (20-31); Glucose 276 mg/dL (74-106)
[2025-02-26] MEDS: SODIUM CHLORIDE 0.9% 1,000 ML IV SCH (01:52)
[2025-02-26] MEDS: PANTOPRAZOLE 40 MG TAB PO SCH (06:01)
[2025-02-26 08:56] LABS: Hematocrit 35.7 % (41.0-53.0); Hemoglobin 10.8 g/dL (13.5-17.5); Mean Corpuscular Hemoglobin 18.2 pg (28.0-32.0); Mean Corpuscular Volume 60.4 fL (80.0-100.0); Nucleated Red Blood Cells % 0.1 %
[2025-02-26 09:08] LABS: Sodium 145 mmol/L (136-145)
[2025-02-26 09:09] LABS: Anion Gap 15 (5-15); Carbon Dioxide 20 mmol/L (20-31)
[2025-02-26 09:11] LABS: Calcium 7.7 mg/dL (8.7-10.4); Chloride 110 mmol/L (98-107); Potassium 3.4 mmol/L (3.5-5.1)
[2025-02-26 09:14] LABS: BUN/Creatinine Ratio 16.3 (10.0-20.0); Blood Urea Nitrogen 15 mg/dL (9-23)
[2025-02-26 09:23] LABS: Glucose 120 mg/dL (74-106)
[2025-02-26] MEDS ORDERED: ENOXAPARIN SOD 40 MG/0.4 ML SYRINGE SC SCH (10:00)
[2025-02-26] MEDS: ATORVASTATIN 20 MG TAB PO SCH (10:13)
[2025-02-26] MEDS: THIAMINE HCL 100 MG TAB PO SCH (10:13)
[2025-02-26] MEDS: FOLIC ACID 1 MG TAB PO SCH (10:14)
[2025-02-26] MEDS: METOPROLOL SUCCINATE XL 50 MG TAB PO SCH (10:14)
[2025-02-26] MEDS: INSULIN LANTUS (GLARGINE) 1 /0.01ml (100units/ml) SC SCH (10:19)
[2025-02-26 10:35] LABS: Sodium 145 mmol/L (136-145)
[2025-02-26 10:36] LABS: Anion Gap 15 (5-15); Carbon Dioxide 20 mmol/L (20-31)
[2025-02-26 10:38] LABS: Calcium 8.1 mg/dL (8.7-10.4); Chloride 110 mmol/L (98-107); Potassium 3.4 mmol/L (3.5-5.1)
[2025-02-26 10:41] LABS: BUN/Creatinine Ratio 14.1 (10.0-20.0); Blood Urea Nitrogen 13 mg/dL (9-23)
[2025-02-26 10:42] LABS: Glucose 113 mg/dL (74-106)
[2025-02-26 13:44] LABS: Sodium 143 mmol/L (136-145)
[2025-02-26 13:45] LABS: Anion Gap 9 (5-15); Carbon Dioxide 24 mmol/L (20-31)
[2025-02-26 13:46] LABS: Calcium 8.1 mg/dL (8.7-10.4); Chloride 110 mmol/L (98-107); Potassium 3.3 mmol/L (3.5-5.1)
[2025-02-26 13:50] LABS: BUN/Creatinine Ratio 15.9 (10.0-20.0); Blood Urea Nitrogen 14 mg/dL (9-23); Glucose 97 mg/dL (74-106)
[2025-02-26] MEDS: PROCHLORPERAZINE MALEATE 10 MG TAB PO ONE (15:56)
[2025-02-26] MEDS: POTASSIUM CHL 20MEQ/100ML 100 ML IV SCH (15:56)
--- NOTE | 2025-02-26 15:58 | DVHPN2 ---
Subjective 35-year-old male with a known history of insulin-dependent diabetes mellitus type 2, hypertension, dyslipidemia, seizure disorder, chronic alcoholism, paroxysmal AFib with a previous history of atrial flutter presented to the hospital with a intractable nausea and vomiting found to have diabetic ketoacidosis was on insulin drip patient is currently off. Patient is still complaining of epigastric pain and nausea. Changes from previous H/P or p: No Changes Objective Vitals Vital Signs Date Time Temp Pulse Resp B/P (MAP) Pulse Ox O2 Delivery O2 Flow Rate FiO2 02/26/25 12:00 16 97 Room Air* 0 21 02/26/25 12:00 73 02/26/25 11:00 132/84 (100) 02/26/25 08:00 98.4 98.4 Intake/Output Intake and Output 02/26/25 07:00 Intake Total 6053 ml Output Total 1900 ml Balance 4153 ml Intake Oral 0 ml IV Total 6053 ml Output Urine Total 1900 ml Medications Current Medications Medications Dose Ordered Sig/Lazaro Route Start Time Stop Time Status Last Admin Dose Admin Dextrose 50 ml UD PRN IV 02/25/25 11:30 Insulin Glargine 15 units DAILY SC 02/26/25 10:00 02/26/25 10:19 15 UNITS Apixaban 5 mg BID PO 02/25/25 22:00 02/26/25 10:13 5 MG Atorvastatin Calcium 20 mg DAILY PO 02/26/25 10:00 02/26/25 10:13 20 MG Ferrous Sulfate 325 mg MWF PO 02/28/25 10:00 Flecainide Acetate 50 mg Q12HR PO 02/25/25 22:00 02/26/25 10:25 50 MG Metoprolol Succinate 25 mg DAILY PO 02/26/25 10:00 02/26/25 10:14 25 MG Pantoprazole Sodium 40 mg DAILY@0600 PO 02/26/25 06:00 02/26/25 06:01 40 MG Thiamine HCl 100 mg DAILY PO 02/26/25 10:00 02/26/25 10:13 100 MG Folic Acid 1 mg DAILY PO 02/26/25 10:00 02/26/25 10:14 1 MG Hydralazine HCl 10 mg Q6HP PRN IV 02/25/25 16:30 Sodium Chloride 10 ml Q8HR IV 02/25/25 22:00 02/26/25 14:00 10 ML Acetaminophen 650 mg Q6HP PRN PO 02/25/25 19:00 Acetaminophen/ Hydrocodone Bitart 1 tab Q4HP PRN PO 02/25/25 19:00 Hydromorphone HCl 0.5 mg Q4HP PRN IV 02/25/25 19:00 Ondansetron HCl 4 mg Q4HP PRN IV 02/25/25 19:00 02/26/25 10:20 4 MG Enoxaparin Sodium 40 mg DAILY SC 02/26/25 10:00 Hold Sodium Chloride 1,000 ml @ 125 mls/hr Q8H IV 02/26/25 02:00 02/26/25 08:10 125 MLS/HR Potassium Chloride 100 ml @ 50 mls/hr Q2H IV 02/26/25 14:30 02/26/25 18:29 Diagnostic Test (Pha) 1 strip ACHS 02/26/25 17:00 Insulin Human Regular HS SC 02/26/25 22:00 Insulin Human Regular AC SC 02/26/25 17:00 Laboratory Results Laboratory Tests 02/26/25 08:40 02/26/25 13:00 Chemistry Test 02/25/25 17:46 02/26/25 00:52 02/26/25 08:40 02/26/25 09:53 Calcium Level 7.4 mg/dL (8.7-10.4) L 7.4 mg/dL (8.7-10.4) L 7.7 mg/dL (8.7-10.4) L 8.1 mg/dL (8.7-10.4) L Test 02/26/25 13:00 Calcium Level 8.1 mg/dL (8.7-10.4) L Urinalysis Test 02/25/25 16:28 Urine Color Light-yellow (Yellow) Urine Clarity Clear (Clear) Urine pH 5.0 (5.0-9.0) Urine Specific [place] 1.017 (1.001-1.035) Urine Protein Negative (Negative) Urine Ketones 3+ (Negative) H Urine Blood Negative /uL (Negative) Urine Nitrite Negative (Negative) Urine Bilirubin Negative (Negative) Urine Urobilinogen Normal mg/dL (Negative) Urine Leukocyte Esterase Negative /uL (Negative) Urine RBC 2 /hpf (0 - 3) Urine Microscopic WBC 1 /HPF (0-3) Urine Squamous Epithelial Cells Few /hpf (<5) Urine Bacteria None seen /hpf (None Seen) Urine Yeast (Budding) Occasional /hpf (None Urine Glucose 4+ mg/dL (Normal) H Microbiology Microbiology Date/Time Source Procedure Growth Status 02/26/25 03:21 Nose MRSA Screen - Final Complete Assessment/Plan Assessment/Plan 35-year-old male with a known history of insulin-dependent diabetes mellitus type 2, hypertension, dyslipidemia, seizure disorder, chronic alcoholism, paroxysmal AFib with a previous history of atrial flutter presented to the hospital with a intractable nausea and vomiting epigastric abdominal pain , increased urination admitted found to have 1. Diabetic ketoacidosis , currently off of insulin drip 2. Acute kidney injury suspected secondary to vasomotor nephropathy 3. Metabolic acidosis secondary to DKA currently resolved 4. Intractable nausea and vomiting 5. Previous history of paroxysmal atrial flutter AFib currently on Eliquis 6. Seizure disorder 7. Chronic alcoholism -clear liquid diet and advanced to diabetic diet as tolerated, DC the insulin drip, continue Eliquis. -me downgraded to telemetry as patient is currently off of insulin drip. Plan discussed with: Patient My Orders Orders - MARCUS MCLEOD MD Procedure Category Date Status Time Potassium Chl PHA 02/26/25 In Process 20meq/100ml 14:30 Glucose Blood PHA 02/26/25 In Process (Accu-Chek Comfort 17:00 Insulin R (Human) PHA 02/26/25 In Process (Insulin R) 22:00 Insulin R (Human) PHA 02/26/25 In Process (Insulin R) 17:00 Date of Service: Feb 26, 2025 Billing Provider: MARCUS MCLEOD MD Common Visit Codes: [id number] INP/OBS CARE(MOD) MARCUS MCLEOD MD Feb 26, 2025 15:57
[2025-02-26] MEDS: ACCU-CHEK COMFORT CURVE STRIP VI SCH (17:11)
[2025-02-26] MEDS: InsuLIN REG 1unit/0.01ml Soln (100units/ml) SC SCH ×2 (17:43→22:00)
[2025-02-26 19:37] LABS: Potassium 4.0 mmol/L (3.5-5.1); Sodium 143 mmol/L (136-145)
[2025-02-26 19:38] LABS: Anion Gap 13 (5-15)
[2025-02-26 19:39] LABS: Calcium 8.2 mg/dL (8.7-10.4); Carbon Dioxide 20 mmol/L (20-31); Chloride 110 mmol/L (98-107)
[2025-02-26 19:44] LABS: BUN/Creatinine Ratio 18.2 (10.0-20.0); Blood Urea Nitrogen 14 mg/dL (9-23)
[2025-02-26 19:46] LABS: Glucose 135 mg/dL (74-106)
[2025-02-27] VITALS (27 sets, daily range): BP systolic 121–176; BP diastolic 70–110; PULSE 49–90; RESP 9–20; TEMP 97.5–98.4; O2SAT 97–100
[2025-02-27 03:51] LABS: Hematocrit 33.9 % (41.0-53.0); Mean Corpuscular Volume 60.6 fL (80.0-100.0)
[2025-02-27 03:52] LABS: Hemoglobin 10.5 g/dL (13.5-17.5); Mean Corpuscular Hemoglobin 18.7 pg (28.0-32.0); Nucleated Red Blood Cells % 0.2 %
[2025-02-27 03:57] LABS: Potassium 3.6 mmol/L (3.5-5.1); Sodium 142 mmol/L (136-145)
[2025-02-27 03:58] LABS: Anion Gap 14 (5-15); Carbon Dioxide 20 mmol/L (20-31); Chloride 108 mmol/L (98-107)
[2025-02-27 04:03] LABS: BUN/Creatinine Ratio 14.1 (10.0-20.0); Blood Urea Nitrogen 10 mg/dL (9-23)
[2025-02-27 04:04] LABS: Calcium 8.4 mg/dL (8.7-10.4); Glucose 124 mg/dL (74-106)
[2025-02-27 04:44] LABS: Anisocytosis Moderate
[2025-02-27 13:48] LABS: Chloride 106 mmol/L (98-107); Sodium 140 mmol/L (136-145)
[2025-02-27 13:49] LABS: Anion Gap 12 (5-15); Carbon Dioxide 22 mmol/L (20-31)
[2025-02-27 13:53] LABS: Calcium 8.5 mg/dL (8.7-10.4); Potassium 3.1 mmol/L (3.5-5.1)
[2025-02-27 13:54] LABS: Glucose 99 mg/dL (74-106)
[2025-02-27 13:55] LABS: BUN/Creatinine Ratio 14.7 (10.0-20.0); Blood Urea Nitrogen 10 mg/dL (9-23); Magnesium 2.0 mg/dL (1.6-2.6)
[2025-02-27] MEDS: METOCLOPRAMIDE HCL 5MG/ml INJ 2ml VIAL IV PRN (14:41)
--- NOTE | 2025-02-27 17:32 | DVHPN2 ---
Subjective 35-year-old male with a known history of insulin-dependent diabetes mellitus type 2, hypertension, dyslipidemia, seizure disorder, chronic alcoholism, paroxysmal AFib with a previous history of atrial flutter presented to the hospital with a intractable nausea and vomiting found to have diabetic ketoacidosis was on insulin drip patient is currently off. Patient tolerated liquid diet biliary wants to diabetic diet. Patient will be downgraded to telemetry. Changes from previous H/P or p: No Changes Objective Vitals Vital Signs Date Time Temp Pulse Resp B/P (MAP) Pulse Ox O2 Delivery O2 Flow Rate FiO2 02/27/25 16:00 98.3 83 12 143/89 (107) 98 98.3 02/27/25 16:00 Room Air* 0 21 Intake/Output Intake and Output 02/27/25 07:00 Intake Total 2951 ml Output Total 3836 ml Balance -885 ml Intake Oral 50 ml IV Total 2901 ml Output Urine Total 3616 ml Emesis 220 ml Medications Current Medications Medications Dose Ordered Sig/Lazaro Route Start Time Stop Time Status Last Admin Dose Admin Dextrose 50 ml UD PRN IV 02/25/25 11:30 Apixaban 5 mg BID PO 02/25/25 22:00 02/27/25 10:49 5 MG Atorvastatin Calcium 20 mg DAILY PO 02/26/25 10:00 02/27/25 10:50 20 MG Ferrous Sulfate 325 mg MWF PO 02/28/25 10:00 Flecainide Acetate 50 mg Q12HR PO 02/25/25 22:00 02/27/25 10:49 50 MG Metoprolol Succinate 25 mg DAILY PO 02/26/25 10:00 02/27/25 10:51 25 MG Pantoprazole Sodium 40 mg DAILY@0600 PO 02/26/25 06:00 02/27/25 06:22 40 MG Thiamine HCl 100 mg DAILY PO 02/26/25 10:00 02/27/25 10:49 100 MG Folic Acid 1 mg DAILY PO 02/26/25 10:00 02/27/25 10:49 1 MG Hydralazine HCl 10 mg Q6HP PRN IV 02/25/25 16:30 Sodium Chloride 10 ml Q8HR IV 02/25/25 22:00 02/27/25 14:00 10 ML Acetaminophen 650 mg Q6HP PRN PO 02/25/25 19:00 Acetaminophen/ Hydrocodone Bitart 1 tab Q4HP PRN PO 02/25/25 19:00 Hydromorphone HCl 0.5 mg Q4HP PRN IV 02/25/25 19:00 Ondansetron HCl 4 mg Q4HP PRN IV 02/25/25 19:00 02/27/25 10:17 4 MG Enoxaparin Sodium 40 mg DAILY SC 02/26/25 10:00 Hold Diagnostic Test (Pha) 1 strip ACHS 02/26/25 17:00 02/27/25 11:30 1 STRIP Insulin Human Regular HS SC 02/26/25 22:00 Insulin Human Regular AC SC 02/26/25 17:00 02/27/25 11:30 2 UNITS Metoclopramide HCl 10 mg Q8HPRN PRN IV 02/27/25 12:30 02/27/25 14:41 10 MG Insulin Glargine 20 units DAILY@1000 SC 02/28/25 10:00 Laboratory Results Laboratory Tests 02/27/25 02:42 02/27/25 13:18 Chemistry Test 02/26/25 19:13 02/27/25 02:42 02/27/25 13:18 Calcium Level 8.2 mg/dL (8.7-10.4) L 8.4 mg/dL (8.7-10.4) L 8.5 mg/dL (8.7-10.4) L Magnesium Level 2.0 mg/dL (1.6-2.6) Phosphorus Level 1.8 mg/dL (2.4-5.1) L Urinalysis Test 02/25/25 16:28 Urine Color Light-yellow (Yellow) Urine Clarity Clear (Clear) Urine pH 5.0 (5.0-9.0) Urine Specific [place] 1.017 (1.001-1.035) Urine Protein Negative (Negative) Urine Ketones 3+ (Negative) H Urine Blood Negative /uL (Negative) Urine Nitrite Negative (Negative) Urine Bilirubin Negative (Negative) Urine Urobilinogen Normal mg/dL (Negative) Urine Leukocyte Esterase Negative /uL (Negative) Urine RBC 2 /hpf (0 - 3) Urine Microscopic WBC 1 /HPF (0-3) Urine Squamous Epithelial Cells Few /hpf (<5) Urine Bacteria None seen /hpf (None Seen) Urine Yeast (Budding) Occasional /hpf (None Urine Glucose 4+ mg/dL (Normal) H Microbiology Microbiology Date/Time Source Procedure Growth Status 02/26/25 03:21 Nose MRSA Screen - Final Complete Assessment/Plan Assessment/Plan 35-year-old male with a known history of insulin-dependent diabetes mellitus type 2, hypertension, dyslipidemia, seizure disorder, chronic alcoholism, paroxysmal AFib with a previous history of atrial flutter presented to the hospital with a intractable nausea and vomiting epigastric abdominal pain , increased urination admitted found to have 1. Diabetic ketoacidosis , currently off of insulin drip 2. Acute kidney injury suspected secondary to vasomotor nephropathy 3. Metabolic acidosis secondary to DKA currently resolved 4. Intractable nausea and vomiting 5. Previous history of paroxysmal atrial flutter AFib currently on Eliquis 6. Seizure disorder 7. Chronic alcoholism - advanced to diabetic diet as tolerated, resume home dose of insulin Lantus continue Eliquis. -downgraded to telemetry as patient is currently off of insulin drip. -discharge bluntly next 24 hours, diabetic education, repeat hemoglobin A1c Plan discussed with: Patient My Orders Orders - MARCUS MCLEOD MD Procedure Category Date Status Time Transfer Orders XFER 02/26/25 Transmitted 20:38 Full Liq Diet DIET 02/27/25 Transmitted Lunch Metoclopramide PHA 02/27/25 In Process Injection (Reglan 12:30 Insulin Lantus PHA 02/28/25 In Process (Glargine) (Lantus) 10:00 Date of Service: Feb 27, 2025 Billing Provider: MARCUS MCLEOD MD Common Visit Codes: [id number] INP/OBS CARE(MOD) MARCUS MCLEOD MD Feb 27, 2025 17:32
[2025-02-28] VITALS (15 sets, daily range): BP systolic 119–142; BP diastolic 72–93; PULSE 65–78; RESP 13–19; TEMP 98–98.4; O2SAT 95–100
[2025-02-28 09:14] LABS: Hematocrit 37.1 % (41.0-53.0); Hemoglobin 11.5 g/dL (13.5-17.5); Mean Corpuscular Hemoglobin 18.7 pg (28.0-32.0); Mean Corpuscular Volume 60.0 fL (80.0-100.0); Nucleated Red Blood Cells % 0.2 %
[2025-02-28] MEDS: FERROUS SULFATE 325mg EC TAB PO SCH (09:49)
[2025-02-28] MEDS: INSULIN LANTUS (GLARGINE) 1 /0.01ml (100units/ml) SC SCH (09:54)
--- NOTE | 2025-02-28 17:33 | DVHDS2 ---
Discharge Summary Date of Admission Feb 25, 2025 at 18:53 Date of Discharge: Feb 28, 2025 Labs/Diagnostic Data: Laboratory Results Test 02/28/25 12:11 02/28/25 08:39 02/27/25 13:18 02/27/25 02:42 POC Glucose 146 mg/dl (70-106) White Blood Count 3.8 10^3/uL (4.4-10.8) Red Blood Count 6.18 10^6/uL (4.5-5.90) Hemoglobin 11.5 g/dL (13.5-17.5) Hematocrit 37.1 % (41.0-53.0) Mean Corpuscular Volume 60.0 fL (80.0-100.0) Mean Corpuscular Hemoglobin 18.7 pg (28.0-32.0) Mean Corpuscular Hemoglobin Concent 31.1 g/dL (32.0-36.0) Red Cell Distribution Width 26.2 % (11.8-14.3) Platelet Count 196 10^3/uL (140-450) Mean Platelet Volume 8.3 fL (6.9-10.8) Neutrophils (%) (Auto) 57.2 % (37.0-80.0) Lymphocytes (%) (Auto) 28.1 % (10.0-50.0) Monocytes (%) (Auto) 12.7 % (0.0-12.0) Eosinophils (%) (Auto) 1.7 % (0.0-7.0) Basophils (%) (Auto) 0.3 % (0.0-2.0) Neutrophils # (Auto) 2.2 10 ^3/uL (1.6-8.6) Lymphocytes # (Auto) 1.1 10 ^3/uL (0.4-5.4) Monocytes # (Auto) 0.5 10 ^3/uL (0-1.3) Eosinophils # (Auto) 0.1 10 ^3/uL (0-0.8) Basophils # (Auto) 0 10 ^3/uL (0-0.2) Nucleated Red Blood Cells 0.2 % Sodium Level 140 mmol/L (136-145) Potassium Level 3.1 mmol/L (3.5-5.1) Chloride Level 106 mmol/L (98-107) Carbon Dioxide Level 22 mmol/L (20-31) Anion Gap 12 (5-15) Blood Urea Nitrogen 10 mg/dL (9-23) Creatinine 0.68 mg/dL (0.700-1.30) Glomerular Filtration Rate Calc 124 mL/min (>90) BUN/Creatinine Ratio 14.7 (10.0-20.0) Serum Glucose 99 mg/dL (74-106) Calcium Level 8.5 mg/dL (8.7-10.4) Phosphorus Level 1.8 mg/dL (2.4-5.1) Magnesium Level 2.0 mg/dL (1.6-2.6) Platelet Estimate Adequate Hypochromasia (manual) Marked Anisocytosis (manual) Moderate Microcytosis Marked Hemoglobin A1c 9.8 % A1C (<5.7) Test 02/25/25 16:28 02/25/25 11:46 02/25/25 11:41 Urine Color Light-yellow (Yellow) Urine Clarity Clear (Clear) Urine pH 5.0 (5.0-9.0) Urine Specific [place] 1.017 (1.001-1.035) Urine Protein Negative (Negative) Urine Ketones 3+ (Negative) Urine Blood Negative /uL (Negative) Urine Nitrite Negative (Negative) Urine Bilirubin Negative (Negative) Urine Urobilinogen Normal mg/dL (Negative) Urine Leukocyte Esterase Negative /uL (Negative) Urine RBC 2 /hpf (0 - 3) Urine Microscopic WBC 1 /HPF (0-3) Urine Squamous Epithelial Cells Few /hpf (<5) Urine Bacteria None seen /hpf (None Seen) Urine Yeast (Budding) Occasional /hpf (None Urine Glucose 4+ mg/dL (Normal) Serum Osmolality 319 mOsm/kg (278-298) Beta-Hydroxybutyric Acid > 4.500 mmol/L (< 0.4) Blood Gas Specimen Type Arterial Blood Gas Sample Site Left radial Blood Gas Patient Temperature 37.0 Arterial Blood Date Drawn [id number] Arterial Blood pH 7.498 (7.350-7.450) Arterial Blood Partial Pressure CO2 35.3 mmHg (35.0-48.0) Arterial Blood Partial Pressure O2 59.3 mmHg (83.0-108.0) Arterial Blood HCO3 26.8 mmol/L (21.0-28.0) Arterial Blood Oxygen Saturation 91.5 % (94.0-98.0) Arterial Blood Base Excess 3.7 mmol/L (-2.0-3.0) Arterial Blood Oxyhemoglobin 89.9 % (94.0-98.0) Arterial Blood Carboxyhemoglobin 1.1 % (0.5-1.5) Arterial Blood Methemoglobin 0.6 % (0.0-1.5) Baljit Test Yes Blood Gas Total Hemoglobin 12.60 g/dL (13.5-17.5) Blood Gas Modality Room air FiO2 % 21.0 Other Laboratory Tests 02/28/25 08:39 02/27/25 13:18 Brief Hx & Hospital Course: 34-year-old male with a history of hyperlipidemia, diabetes, seizures, and alcohol abuse, was brought in by emergency services with a chief complaint of generalized weakness with the associated frequent urination, and nausea/vomiting. Patient states that his symptoms have been onset for the past day no alleviating factors. Emergency services notes the patient's blood sugar was up in the 400s on route, as well as being tachycardic in the 120s. Patient does note that he took his insulin a few hours before arriving to the emergency department. Patient denies any diarrhea, chest pain, headache, or any other associated symptoms, modifiers at this time. Patient is admitted and counseled regarding alcohol misuse disorder and compliance with the insulin regimen. Patient received IV fluids insulin drip DKA protocol. Subsequently he has acidosis resolved. Patient is tolerating diet. Blood sugars have stabilized. He is resumed back on his long-acting insulin and sliding scale insulin. Patient counseled and educated regarding compliance and close outpatient follow up with the PCP. Otherwise given his acute symptoms resolved feeling better back to baseline normal status he has been discharged home in stable condition. Patient verbalized understanding his hospital diagnosis, treatment he received, discharge instructions and agree with follow-up plan of care as outlined Condition at Discharge: Stable Final Diagnosis/Problems List 1. Diabetic ketoacidosis resolved 2. Acute kidney injury suspected secondary to vasomotor nephropathy 3. Metabolic acidosis secondary to DKA currently resolved 4. Intractable nausea and vomiting 5. Previous history of paroxysmal atrial flutter AFib currently on Eliquis 6. Seizure disorder 7. Chronic alcoholism Discharge Disposition: Home Discharge Instruct/Medications Diet: Consistent carbohydrate, Cardiac 2g Na,low cholest Activity: No Restrictions, As Tolerated Follow Up/Referral: with PCP next week for diabetes managment Medications: continue home insuin and other medications as you are taking Scheduled Apixaban Base (Eliquis), 5 MG PO BID Atorvastatin Calcium (Lipitor), 1 TAB PO DAILY Ferrous Sulfate (Ferrous Sulfate), 325 MG PO MWF Flecainide Acetate (Tambocor Tablet), 50 MG PO Q12HR Folic Acid (Folic Acid), 1 MG PO DAILY Insulin Glargine (Basaglar Kwikpen), 20 UNIT SC HS Insulin Lispro (Insulin Lispro Kwikpen), 8 UNIT SC AC Metoclopramide HCl (Metoclopramide Hydrochlor), 10 MG PO BID Metoprolol Succinate (Toprol Xl), 25 MG PO DAILY Multiple Vitamin (Mvi Tab), 1 TAB PO DAILY Pantoprazole Sodium Sesquihydr (Pantoprazole Sodium), 40 MG PO DAILY@0600 Potassium Chloride (Klor-Con M10), 10 MEQ PO DAILY Sucralfate (Carafate Susp), 1 GM GT QID@0600,1130,1700,2200 Thiamine Hcl (Vitamin B-1), 100 MG PO DAILY Scheduled PRN Insulin Regular (Human) (Novolin R), 1-15 UNITS SC Q6HPRN PRN Durable Medical Equipment Isopropyl Alcohol (Alcohol Swabs), % XX ACHS, (DME) Lancets (Freestyle Lancets), EA XX ACHS, (DME) Discharge Statement: "Patient was advised to return to the ER or call 911 if any headaches, dizziness, shortness of breath, chest pain, abdominal pain, bleeding, fevers, or worsening of medical condition. Patient was counseled about treatment plan, medications, possible side effects, patientverbalized understanding. All questions were answered to the best of my ability. This discharge took greater then 30 minutes in planning, reviewing documentation, counseling the patient, and discussing with other team members." ASSESSMENT ASSESSMENT Assessment 1. Diabetic ketoacidosis resolved 2. Acute kidney injury suspected secondary to vasomotor nephropathy 3. Metabolic acidosis secondary to DKA currently resolved 4. Intractable nausea and vomiting 5. Previous history of paroxysmal atrial flutter AFib currently on Eliquis 6. Seizure disorder 7. Chronic alcoholism Date of Service: Feb 28, 2025 Billing Provider: DANIELA LOPEZ MD Common Visit Codes: [id number] DISCH DAY <30MIN DANIELA LOPEZ MD Feb 28, 2025 17:33
== END 2025-02-28 18:47 | disposition home or self-care (01) | DRG 420 ==
LOC: EDBD 10:57 → ER 10:57 → OVERFLOW 18:53 → ICU WEST 02-26 03:23
PROVIDERS: ADMIT Hospitalist; ATTEND Hospitalist
DX: E11.10 Type 2 diabetes mellitus with ketoacidosis without coma (principal); N17.0 Acute kidney failure with tubular necrosis; R65.11 Systemic inflammatory response syndrome (SIRS) of non-infectious origin with acute organ dysfunction; E78.5 Hyperlipidemia, unspecified; E86.0 Dehydration; E87.6 Hypokalemia; I48.0 Paroxysmal atrial fibrillation; G40.909 Epilepsy, unspecified, not intractable, without status epilepticus; I10 Essential (primary) hypertension; F10.20 Alcohol dependence, uncomplicated; Z79.01 Long term (current) use of anticoagulants; Z79.4 Long term (current) use of insulin; Z82.49 Family history of ischemic heart disease and other diseases of the circulatory system; Z82.5 Family history of asthma and other chronic lower respiratory diseases; Z83.438 Family history of other disorder of lipoprotein metabolism and other lipidemia; Z79.899 Other long term (current) drug therapy; Y90.9 Presence of alcohol in blood, level not specified
CPT/HCPCS: 36415; 36600; 80048; 81001; 82010; 82805; 82962; 83036; 83735; 83930; 84100; 85025; 87081; 96360; 99291; G0378; J1815; J2405; J3480; Q0164

== ENCOUNTER 2025-05-14 00:27 | Inpatient (IN) | payer MEDICAID ==
[~2025-05-14] VITALS: Ht 170.2 cm; Wt 63.5 kg
[2025-05-14] MEDS ORDERED: DEXTROSE (50%) 50ML SYRG IV PRN (01:15)
--- NOTE | 2025-05-14 01:16 | ED.PDOC ---
History of present illness HPI Comments HPI: 35-year-old male who came to ER via EMS for hyperglycemia. Patient admitted multiple times here for diabetic ketoacidosis. Patient states he takes his insulin regularly. In the past few hours, patient has been experiencing epigastric abdominal pain/ that appears to worsen than before. Also complai alea of left flank pain. Upon arrival paramedics, blood sugar was 528 Patient last discharged February 11 2025, diagnosed with 1. Diabetic ketoacidosis resolved 2. Acute kidney injury suspected secondary to vasomotor nephropathy 3. Metabolic acidosis secondary to DKA currently resolved 4. Intractable nausea and vomiting 5. Previous history of paroxysmal atrial flutter AFib currently on Eliquis 6. Seizure disorder 7. Chronic alcoholism Past Medical History: Diabetes, diabetic ketoacidosis, AFib, seizure disorder, chronic alcoholism Surgical History: Denies Family History: Denies Personal and Social History: Heavy alcohol drinker HPI: Poor Historian. REVIEW OF SYSTEMS: CONSTITUTIONAL: Denies acute: fever, diaphoresis, chills HEAD: Denies acute: headache, photophobia Eyes: Denies acute: Double vision, vision loss, eye pain, eye discharge. EARS: Denies acute: tinnitus, hearing loss, ear discharge, ear pain, THROAT: Denies acute: sore throat, swelling, difficulty swallowing , pain with swallowing, change in voice. NECK: Denies acute: neck pain, neck swelling, stiff neck. HEART: Denies acute : chest pain, palpitations, LUNGS: Denies acute: SOB, wheezing, cough, hemoptysis ABDOMEN: Denies acute: Nausea, Vomiting, diarrhea, melena , hematemesis, hematochezia SKIN: Denies acute: rash, redness, lesions, itchiness. EXTREMITIES: Denies acute: calf pain, numbness, tingling, weakness, denies pain in extremity. Denies acute: Low back pain. Neuro: Denies acute: focal neurological deficit, motor or sensory focal neurological deficit, tremors, seizure like activity, confusion, dizziness, change in mental status, loss of bowel or bladder function, cauda equina like symptoms. : Denies acute: dysuria, hematuria, flank pain, increase in urinary frequency. PSYCH: Denies acute: hallucination, suicidal ideation, homicidal ideation. PHYSICAL EXAM: General: ----moderate----acute distress, awake and alert. Head: normocephalic, atraumatic. No raccoon's eyes, no nelson sign. Neck: supple, trachea is midline, no swelling. Throat: Normal phonation. Eyes:, no erythema, no purulent discharge, no proptosis, no icterus. Heart: regular tachycardic, no significant murmur appreciated. Lungs: no apparent respiratory distress, Able to speak in full sentences. No wheezing, no rhonchi, no crackles. No stridors Clear to auscultation bilaterally. Abdomen: Epigastric tender to palpation, non distended, soft, no guarding, no rebound, + bowel sounds. Neuro: Awake, Alert, oriented to name, self, situation, follows commands GCS=15. Speech is normal. Skin: no petechia, no purpura, no cyanosis, non-pale, not jaundice. Lower extremities: --no - Pitting edema no deformity, no focal swelling, no calf TTP. Makes eye contact. moves all four extremities. Face: no apparent facial droop. No nuchal rigidity, Kernig's sign, Brudzinski's sign, no meningeal signs. ED COURSE: DISCLAIMER: This medical document was created using an electronic medical record system with voice recognition software and computerized dictation system. Although this document has been carefully reviewed, there might still be some phonetic and typographical errors. Occasional wrong-word or "sound-alike" substitutions may have occurred due to the inherent limitations of voice recognition software. These areas are purely typographical due to imperfections of the software programs and do not reflect any compromise in the patient's medical care. Please read the chart carefully and recognize, using context, where these substitutions have occurred. Chief Complaint: Hyperglycemia Time Seen by MD: 01:12 Primary Care Provider: UNKNOWN History of present illness: Nurses Notes, Allergies Allergies: Coded Allergies: NO KNOWN ALLERGIES (Unverified , 06/03/22) Home Meds Active Scripts Potassium Chloride (Klor-Con M10) 10 Meq Tab, 10 MEQ PO DAILY for 10 Days, #10 TAB 0 Refills Prov:ANJALI MASON RESIDENT 02/09/25 Ferrous Sulfate (FERROUS SULFATE) 325 Mg Tb, 325 MG PO MWF for 30 Days, #30 TAB 0 Refills Prov:ANJALI MASON [facility][NOTE 3] 02/09/25 Lancets (Freestyle Lancets) Lancets Mis, EA XX ACHS, #120 A.c. HS [facility] 02/09/25 Isopropyl Alcohol (Alcohol Swabs) 70 % Pad, % XX ACHS, #120 A.c. HS [facility] 02/09/25 Insulin Lispro (Insulin Lispro Kwikpen) 100 Unit/Ml Inj, 8 UNIT SC AC for 30 Days, #5 INJ 0 Refills [facility] 02/09/25 Metoclopramide HCl (Metoclopramide Hydrochlor) 10 Mg Tab, 10 MG PO BID for 10 Days, #20 TAB 0 Refills [facility] 02/09/25 Thiamine Hcl (VITAMIN B-1) 100 Mg Tb, 100 MG PO DAILY for 30 Days, #30 TAB [facility] 02/09/25 Multiple Vitamin (Mvi Tab) 1 Tab Tb, 1 TAB PO DAILY for 30 Days, #30 TAB Prov[facility] 02/09/25 Folic Acid (Folic Acid) 1 Mg Tab, 1 MG PO DAILY for 30 Days, #30 TAB Prov[facility] 02/09/25 Insulin Glargine (Basaglar Kwikpen) 100 Unit/Ml Inj, 20 UNIT SC HS for 30 Days, #7 INJ Please provide patient appropriate needles and administration pen to go with all insulin. Prov:COREEN VILLALTA [employer] ENGINEER 01/03/25 Apixaban Base (ELIQUIS) 5 Mg Tab, 5 MG PO BID for 30 Days, #60 TAB Prov:MILLY CORRAL 09/06/24 Sucralfate (CARAFATE SUSP) 1 Gm/10 Ml Ss, 1 GM GT QID@0600,1130,1700,2200 for 30 Days, #120 ML Prov:MILLY CORRAL [facility][NOTE 3] 09/06/24 Metoprolol Succinate (Toprol Xl) 50 Mg Tab, 25 MG PO DAILY for 30 Days, #15 TAB Prov:MILLY CORRAL [facility][NOTE 3] 09/06/24 Flecainide Acetate (TAMBOCOR TABLET) 50 Mg Tb, 50 MG PO Q12HR for 30 Days, #60 TAB Prov:FREDYJUNAIDNORYMILLY RESIDENT 09/06/24 Pantoprazole Sodium Sesquihydr (Pantoprazole Sodium) 40 Mg Tab, 40 MG PO DAILY@0600 for 30 Days, #30 TAB Prov:LARRY VINSONRIZWANA RESIDENT 12/03/23 Insulin Regular (Human) (Novolin R) 100 Unit/Ml Inj, 1-15 UNITS SC Q6HPRN PRN for 30 Days, #5 INJ 0 Refills take 1-15 units Q6hr ACHS per sliding scale Prov:VERENA BAUTISTA MD 11/07/21 Atorvastatin Calcium (Lipitor) 20 Mg Tab, 1 TAB PO DAILY, #30 TAB Prov:VERENA BAUTISTA MD 11/07/21 Information Source: Patient Mode of Arrival: EMS Past Medical History PAST MEDICAL HISTORY: DM, High Lipids, HTN, Liver, Seizures Surgical History: Denies all surgeries Family History Family History: Family hx of heart mary Social History Smoker: Non-Smoker Alcohol: Heavy Drugs: Denies Drug Use Lives In: Home Was a procedure done? Was a procedure done?: No Differential Diagnosis (DM) Differential Diagnosis: Dehydration, Diabetic Coma, DKA, Electrolyte Abnormality, Encephalopathy, Gastritis, Gastroenteritis, Hepatitis, Hyperglycemia, Hyperosmolar State, Hypoglycemia, Pancreatitis, Pyelonephritis, UTI X-Ray, Labs, Meds, VS Vital Signs Date Time Temp Pulse Resp B/P (MAP) Pulse Ox O2 Delivery O2 Flow Rate FiO2 05/14/25 00:27 97.1 113 24 148/119 100 97.1 Lab Test 05/14/25 01:16 05/14/25 01:13 Range/Units White Blood Count 11.9 H 4.4-10.8 10^3/uL Red Blood Count 6.93 H 4.5-5.90 10^6/uL Hemoglobin 13.9 13.5-17.5 g/dL Hematocrit 44.6 41.0-53.0 % Mean Corpuscular Volume 64.4 L 80.0-100.0 fL Mean Corpuscular Hemoglobin 20.0 L 28.0-32.0 pg Mean Corpuscular Hemoglobin Concent 31.1 L 32.0-36.0 g/dL Red Cell Distribution Width 21.2 H 11.8-14.3 % Platelet Count 229 140-450 10^3/uL Mean Platelet Volume 8.3 6.9-10.8 fL Neutrophils (%) (Auto) 91.4 H 37.0-80.0 % Lymphocytes (%) (Auto) 3.2 L 10.0-50.0 % Monocytes (%) (Auto) 5.3 0.0-12.0 % Eosinophils (%) (Auto) 0.0 0.0-7.0 % Basophils (%) (Auto) 0.1 0.0-2.0 % Neutrophils # (Auto) 10.9 H 1.6-8.6 10 ^3/uL Lymphocytes # (Auto) 0.4 0.4-5.4 10 ^3/uL Monocytes # (Auto) 0.6 0-1.3 10 ^3/uL Eosinophils # (Auto) 0 0-0.8 10 ^3/uL Basophils # (Auto) 0 0-0.2 10 ^3/uL Nucleated Red Blood Cells 0.1 % Platelet Estimate Adequate Hypochromasia (manual) Moderate Anisocytosis (manual) Slight Microcytosis Moderate Sodium Level 130 L 136-145 mmol/L Potassium Level 3.5 3.5-5.1 mmol/L Chloride Level 95 L 98-107 mmol/L Carbon Dioxide Level < 10 *L 20-31 mmol/L Anion Gap 25.23543 H 5-15 Blood Urea Nitrogen 36 H 9-23 mg/dL Creatinine 1.67 H 0.700-1.30 mg/dL Glomerular Filtration Rate Calc 54 >90 mL/min BUN/Creatinine Ratio 21.6 H 10.0-20.0 Serum Glucose 505 *H 74-106 mg/dL Serum Osmolality 337 H 278-298 mOsm/kg Calcium Level 9.1 8.7-10.4 mg/dL Phosphorus Level 4.3 2.4-5.1 mg/dL Magnesium Level 2.8 H 1.6-2.6 mg/dL Lipase 75 H 12-53 U/L Beta-Hydroxybutyric Acid > 4.500 H < 0.4 mmol/L Blood Gas Specimen Type Arterial Blood Gas Sample Site Right radial Blood Gas Patient Temperature 37.0 Arterial Blood Date Drawn [id number] Arterial Blood pH 7.213 *L 7.350-7.450 Arterial Blood Partial Pressure CO2 < 14.1 *L 35.0-48.0 mmHg Arterial Blood Partial Pressure O2 125.8 H 83.0-108.0 mmHg Arterial Blood Oxygen Saturation 97.9 94.0-98.0 % Arterial Blood Oxyhemoglobin 96.2 94.0-98.0 % Arterial Blood Carboxyhemoglobin 1.2 0.5-1.5 % Arterial Blood Methemoglobin 0.5 0.0-1.5 % Baljit Test Yes Blood Gas Total Hemoglobin 14.30 13.5-17.5 g/dL Blood Gas Modality Room air Blood Gas Spontaneous Rate 25 FiO2 % 21.0 Blood Gas Critical Value Read Back yes Blood Gas Notified Whom md.m girard Blood Gas Notified Time [id number] Blood Gas Notified By fountain attendant anuel genao Current Medications Medications (Trade) Dose Ordered Sig/Lazaro Route Start Time Stop Time Status Last Admin Sodium Chloride 1,000 ml @ 500 mls/hr Q2H IV 05/14/25 01:15 05/14/25 05:14 05/14/25 03:15 Insulin Human (Reg)/Sodium Chloride 100 ml @ 0.5 mls/hr Q24H IV 05/14/25 01:15 05/14/25 02:40 Diagnostic Test (Pha) (Accu-Chek Comfort Curve T) 1 strip Q90MIN 05/14/25 01:30 05/14/25 03:30 Sodium Bicarbonate 100 ml ONCE ONCE IV 05/14/25 01:15 05/14/25 01:16 DC 05/14/25 02:20 Thiamine HCl 100 mg ONCE ONCE PO 05/14/25 03:00 05/14/25 03:01 DC 05/14/25 04:10 [place] [address] Ph: [phone] DIAGNOSTIC IMAGING Diagnostic Imaging Report : [id number] Signed PATIENT: YAZMIN SANDOVAL ACCT: [id number] UNIT: [id number] : 1990 LOC: OVERFLOW ROOM / BED: [address] [place] [address] / A AGE / SEX: 35 / M ADM STATUS: ADM IN SERVICE 0303 ORDERING PHYSICIAN: ANNE GIRARD DO PROCEDURE(s): CXRP - CHEST PORTABLE REASON: epig pain ORDER NUMBER(s): [id number], ACCESSION NUMBER(s): [id number] CHEST RADIOGRAPH Indication: epig pain Technique: Single frontal view of the chest was obtained COMPARISON: XY CHEST XRAY 1 VIEW on DOS: 02/06/25, XY CHEST PORTABLE on DOS: 12/29/24, XY CHEST PORTABLE on DOS: 12/01/24, XY CHEST PORTABLE on DOS: 10/19/24, XY CHEST XRAY 1 VIEW on DOS: 09/03/24 FINDINGS: Lines and Tubes: None Lungs: Clear Pleura: No effusion. No pneumothorax. Cardiomediastinal contours: Unremarkable Bones: Unremarkable IMPRESSION: 1. No acute disease. ATED BY: TRACY FERGUSON MD DICTATED DATE/TIME: 05/14/25340 SIGNED BY: TRACY FERGUSON MD SIGNED DATE/TIME: 05/14/25340 CC: Time of 1ST Reevaluation: 01:11 Reevaluation 1ST: Unchanged Patient Education/Counseling: Diagnosis, Treatment Family Education/Counseling: No Family Present Comments MDM: patient presented with the above HPI.--hyperglycemia----workup was initiated. patient was found with the above mentioned diagnosis. the following medications were ordered: please refer to order lists of meds and tests obtained by myself Dr. Girard. Patient ED course and VS have been stabilized. Patient has been reassessed in the ED and remained in a stable condition. Pertinent incidental findings were discussed with the patient and/or family. Patient/family voices understanding and is agreeable with plan. Patient has been observed in the ED adequate length of time to insure improvement/stability. Escalation of care considered: Consideration of escalation to observation or admission DKA protocol was initiated. Patient was given sodium bicarb amps as well. Patient was ADMITTED to the medicine team for further evaluation and treatment of their presentation. All the reports of any imaging studies that were ordered by myself were reviewed by myself. SEPSIS Sepsis Screen Date sepsis recognized/suspect: May 14, 2025 Time Sepsis recognized/suspect: 0027 Recent Procedure: No On Antibiotic Therapy: No Respiratory Rate >20: No Heart Rate >90: No Temp<36 C (96.8 F) or >38.3 C: No SBP <90 or MAP <65 mmHG: No New Acute Mental Status Change: No Is the patient on CPAP, BIPAP,: No Physician Orders Insulin Drip Protocol (05/14/25 ) Sodium Chloride 0.9% (05/14/25 01:15) Sodium Chloride 0.9% (05/14/25 05:15) Sodium Chloride 0.9% (05/14/25 07:15) Insulin Drip 100 Unit/100ml (Myxredlin 1 (05/14/25 01:15) Dextrose 50% Syringe (05/14/25 01:15) Glucose Blood (Accu-Chek Comfort Curve T (05/14/25 01:30) Abg W/ Co-Ox (05/14/25 01:01) Urinalysis (05/14/25 01:01) Neurological Assessment (05/14/25 01:01) Vs/Hemodynamics .PER UNIT PROTOCOL (05/14/25 01:01) Chest Portable (05/14/25 03:03) Vital Signs Date Time Temp Pulse Resp B/P (MAP) Pulse Ox O2 Delivery O2 Flow Rate FiO2 05/14/25 00:27 97.1 113 24 148/119 100 97.1 Laboratory Tests Test 05/14/25 01:16 White Blood Count 11.9 10^3/uL (4.4-10.8) H Medications Medications Dose Ordered Sig/Lazaro Route Start Time Stop Time Status Last Admin Dose Admin Diagnostic Test (Pha) 1 strip Q90MIN 05/14/25 01:30 05/14/25 03:30 Insulin Human (Reg)/Sodium Chloride 100 ml @ 0.5 mls/hr Q24H IV 05/14/25 01:15 05/14/25 02:40 Sodium Bicarbonate 100 ml ONCE ONCE IV 05/14/25 01:15 05/14/25 01:16 DC 05/14/25 02:20 Sodium Chloride 1,000 ml @ 500 mls/hr Q2H IV 05/14/25 01:15 05/14/25 05:14 05/14/25 03:15 Thiamine HCl 100 mg ONCE ONCE PO 05/14/25 03:00 05/14/25 03:01 DC 05/14/25 04:10 Departure 1 Departure Time of Disposition: 02:52 Impression: Primary Impression: DKA (diabetic ketoacidoses) Disposition: 09 ADMITTED INPATIENT Admit to: ICU Condition: Critical Discharged With: Self Critical Care Note Critical Care Time?: Yes (1 hr-critical care time only) I personally scribed for ANNE GIRARD DO ([email or web address]) on 05/14/25 at 01:16. Electronically submitted by Phillip Brody ([email or web address]). I personally scribed for ANNE GIRARD DO ([email or web address]) on 05/14/25 at 04:42. Electronically submitted by Phillip Brody ([email or web address]). ANNE GIRARD DO May 14, 2025 01:16
[2025-05-14 01:39] LABS: Hematocrit 44.6 % (41.0-53.0); Hemoglobin 13.9 g/dL (13.5-17.5); Mean Corpuscular Hemoglobin 20.0 pg (28.0-32.0); Mean Corpuscular Volume 64.4 fL (80.0-100.0); Nucleated Red Blood Cells % 0.1 %
[2025-05-14 01:50] LABS: Anion Gap 25.00001 (5-15); Calcium 9.1 mg/dL (8.7-10.4)
[2025-05-14 01:55] LABS: BUN/Creatinine Ratio 21.6 (10.0-20.0); Sodium 130 mmol/L (136-145)
[2025-05-14 01:56] LABS: Blood Urea Nitrogen 36 mg/dL (9-23); Chloride 95 mmol/L (98-107); Lipase 75 U/L (12-53); Potassium 3.5 mmol/L (3.5-5.1)
[2025-05-14 01:57] LABS: Magnesium 2.8 mg/dL (1.6-2.6)
[2025-05-14 01:58] LABS: Carbon Dioxide < 10 mmol/L (20-31); Glucose 505 mg/dL (74-106)
[2025-05-14] MEDS: SODIUM CHLORIDE 0.9% 1,000 ML IV SCH ×3 (02:00→07:15)
[2025-05-14 02:08] LABS: Anisocytosis Slight
[2025-05-14] MEDS: SODIUM BICARB 8.4% 50Meq/50ml SYR Vial IV ONE (02:20)
[2025-05-14] MEDS: ACCU-CHEK COMFORT CURVE STRIP VI SCH (02:40)
[2025-05-14] MEDS: INSULIN DRIP 100 UNIT/100ML 100 ML IV SCH (02:40)
[2025-05-14] MEDS ORDERED: NITROGLYCERIN 0.4 MG SL TAB SL PRN (03:30)
[2025-05-14] MEDS ORDERED: MORPHINE SULFATE INJ 2 MG/ml SYRG IV PRN (03:30)
[2025-05-14] MEDS ORDERED: DOCUSATE SOD 100 MG CAP PO PRN (03:30)
[2025-05-14] MEDS ORDERED: ACETAMINOPHEN 325 MG TAB PO PRN (03:30)
[2025-05-14] MEDS: SODIUM CHLORIDE 0.9% 500 ML IV ONE (03:30)
--- NOTE | 2025-05-14 03:32 | DVHHP2 ---
History of Present Illness Reason for Visit: Diabetes mellitus with ketoacidosis History of Present Illness The patient is a 35-year-old male with past medical history of diabetes mellitus, AFib, seizures, and EtOH abuse who presented to [facility] ED for evaluation of hyperglycemia. Patient has been admitted in this facility multiple times for diabetes ketoacidosis. Patient reports that she has been experiencing epigastric abdominal pain, radiating to the left flank, associated with generalized weakness, getting worse that prompted this visit. Patient was seen and evaluated in the ED, laboratory data shows WBC 11.9, platelets 229, sodium 130, potassium 3.5, BUN 36, creatinine 1.67, GFR 54, glucose 505, anion gap 25, calcium 9.1, magnesium 2.8, lipase 75, acetone > 4.500, blood pressure 148/119, heart rate 113, temperature 97.1 F, O2 saturation 99% on room air. Patient was found to have diabetes mellitus with ketoacidosis. Patient was started on insulin drip, please see medication orders section in the computer. On my assessment, patient denied chest pain, no headache, dizziness, diaphoresis, shortness of breaths, no diarrhea, nausea, vomiting, fever, no chills. Patient was admitted for further evaluation and medical management. Past Medical History Diabetes mellitus, Diabetic ketoacidosis, AFib, Seizure disorder, Chronic alcoholism Past Surgical History Denies all surgeries Family History Reviewed, noncontributory to the management of this case. Past Social History The patient lives at home, drinks alcohol heavily, denies smoking or illicit drugs abuse. Review of Systems Constitutional: Yes: Weakness; No: Fever, Chills, Sweats, Malaise, Other Eyes: No: Pain, Vision change, Conjunctivae inflammation, Eyelid inflammation, Other, Redness ENT: No: Ear pain, Ear discharge, Nose pain, Nose discharge, Nose congestion, Mouth pain, Mouth swelling, Throat pain, Throat swelling, Other Respiratory: No: Cough, Dry, Shortness of breath, SOB with excertion, Wheezing, Hemoptysis, Pleuritic Pain, Sputum, Wheezing, Other Cardiovascular: No: Chest Pain, Palpitations, Orthopnea, Paroxysmal Noc. Dyspnea, Edema, Lt Headedness, Other Gastrointestinal: Abdominal Pain; No: Nausea, Vomiting, Diarrhea, Constipation, Melena, Hematochezia, Other Genitourinary: No Dysuria, No Frequency, No Incontinence, No Hematuria, No Retention; Other (Left flank pain) Musculoskeletal: No: other, neck pain, shoulder pain, arm pain, back pain, hand pain, leg pain, foot pain Skin: No: Rash, Lesions, Jaundice, Bruising, Other Neurological: No: Weakness, Numbness, Incoordination, Change in speech, Confusion, Seizures, Other Allergies: Coded Allergies: NO KNOWN ALLERGIES (Unverified , 06/03/22) Medications Current Medications Medications Dose Ordered Sig/Lazaro Route Start Time Stop Time Status Last Admin Dose Admin Sodium Chloride 1,000 ml @ 500 mls/hr Q2H IV 05/14/25 01:15 05/14/25 05:14 05/14/25 02:00 500 MLS/HR Sodium Chloride 1,000 ml @ 250 mls/hr Q4H IV 05/14/25 05:15 05/14/25 07:14 Sodium Chloride 1,000 ml @ 150 mls/hr Q6H40M IV 05/14/25 07:15 Insulin Human (Reg)/Sodium Chloride 100 ml @ 0.5 mls/hr Q24H IV 05/14/25 01:15 05/14/25 02:40 6 MLS/HR Dextrose 50 ml UD PRN IV 05/14/25 01:15 Diagnostic Test (Pha) 1 strip Q90MIN 05/14/25 01:30 05/14/25 02:40 1 STRIP Exam Vital Signs Vital Signs Date Time Temp Pulse Resp B/P (MAP) Pulse Ox O2 Delivery O2 Flow Rate FiO2 05/14/25 00:27 97.1 113 24 148/119 100 97.1 General Appearance: Alert, Oriented X3, Cooperative, No acute distress HEENT: Atraumatic, PERRLA, EOMI, Mucous membr. moist/pink Respiratory: Normal air movement Cardiovascular: Regular rate, Normal S1, Normal S2, No murmurs Abdominal: Normal bowel sounds, Soft, No hepatospenomegaly, No masses, Other (Reports tenderness) Extremities: No clubbing, No cyanosis, No edema, Normal pulses, No tenderness/swelling Skin: No rashes, No significant lesion Neuro: Normal speech, Normal tone, Sensation intact, Cranial nerves 3-12 NL, Reflexes 2+, Other (Generalized weakness) Psych/Mental Status: Mental status NL, Mood NL Labs/Xrays Labs Test 05/14/25 01:16 Range/Units White Blood Count 11.9 H 4.4-10.8 10^3/uL Red Blood Count 6.93 H 4.5-5.90 10^6/uL Hemoglobin 13.9 13.5-17.5 g/dL Hematocrit 44.6 41.0-53.0 % Mean Corpuscular Volume 64.4 L 80.0-100.0 fL Mean Corpuscular Hemoglobin 20.0 L 28.0-32.0 pg Mean Corpuscular Hemoglobin Concent 31.1 L 32.0-36.0 g/dL Red Cell Distribution Width 21.2 H 11.8-14.3 % Platelet Count 229 140-450 10^3/uL Mean Platelet Volume 8.3 6.9-10.8 fL Neutrophils (%) (Auto) 91.4 H 37.0-80.0 % Lymphocytes (%) (Auto) 3.2 L 10.0-50.0 % Monocytes (%) (Auto) 5.3 0.0-12.0 % Eosinophils (%) (Auto) 0.0 0.0-7.0 % Basophils (%) (Auto) 0.1 0.0-2.0 % Neutrophils # (Auto) 10.9 H 1.6-8.6 10 ^3/uL Lymphocytes # (Auto) 0.4 0.4-5.4 10 ^3/uL Monocytes # (Auto) 0.6 0-1.3 10 ^3/uL Eosinophils # (Auto) 0 0-0.8 10 ^3/uL Basophils # (Auto) 0 0-0.2 10 ^3/uL Nucleated Red Blood Cells 0.1 % Platelet Estimate Adequate Hypochromasia (manual) Moderate Anisocytosis (manual) Slight Microcytosis Moderate Sodium Level 130 L 136-145 mmol/L Potassium Level 3.5 3.5-5.1 mmol/L Chloride Level 95 L 98-107 mmol/L Carbon Dioxide Level < 10 *L 20-31 mmol/L Anion Gap 25.97424 H 5-15 Blood Urea Nitrogen 36 H 9-23 mg/dL Creatinine 1.67 H 0.700-1.30 mg/dL Glomerular Filtration Rate Calc 54 >90 mL/min BUN/Creatinine Ratio 21.6 H 10.0-20.0 Serum Glucose 505 *H 74-106 mg/dL Serum Osmolality 337 H 278-298 mOsm/kg Calcium Level 9.1 8.7-10.4 mg/dL Phosphorus Level 4.3 2.4-5.1 mg/dL Magnesium Level 2.8 H 1.6-2.6 mg/dL Lipase 75 H 12-53 U/L Beta-Hydroxybutyric Acid > 4.500 H < 0.4 mmol/L PATIENT: YAZMIN SANDOVALACCT: [id number] UNIT: [id number] : 1990 LOC: OVERFLOW ROOM / BED: [address] [place] [address] / A AGE / SEX: 35 / M ADM STATUS: ADM IN SERVICE 030 ORDERING PHYSICIAN: ANNE GIRARD DO PROCEDURE(s): CXRP - CHEST PORTABLE REASON: epig pain ORDER NUMBER(s): [id number], ACCESSION NUMBER(s): [id number] CHEST RADIOGRAPH Indication: epig pain Technique: Single frontal view of the chest was obtained COMPARISON: XY CHEST XRAY 1 VIEW on DOS: 02/06/25, XY CHEST PORTABLE on DOS: 12/29/24, XY CHEST PORTABLE on DOS: 12/01/24, XY CHEST PORTABLE on DOS: 10/19/24, XY CHEST XRAY 1 VIEW on DOS: 09/03/24 FINDINGS: Lines and Tubes: None Lungs: Clear Pleura: No effusion. No pneumothorax. Cardiomediastinal contours: Unremarkable Bones: Unremarkable IMPRESSION: 1. No acute disease. SEPSIS Sepsis Screen Date sepsis recognized/suspect: May 14, 2025 Time Sepsis recognized/suspect: 0027 Recent Procedure: No On Antibiotic Therapy: No Respiratory Rate >20: No Heart Rate >90: No Temp<36 C (96.8 F) or >38.3 C: No SBP <90 or MAP <65 mmHG: No New Acute Mental Status Change: No Is the patient on CPAP, BIPAP,: No Physician Orders Insulin Drip Protocol (05/14/25 ) Sodium Chloride 0.9% (05/14/25 01:15) Sodium Chloride 0.9% (05/14/25 05:15) Sodium Chloride 0.9% (05/14/25 07:15) Insulin Drip 100 Unit/100ml (Myxredlin 1 (05/14/25 01:15) Dextrose 50% Syringe (05/14/25 01:15) Glucose Blood (Accu-Chek Comfort Curve T (05/14/25 01:30) Abg W/ Co-Ox (05/14/25 01:01) Urinalysis (05/14/25 01:01) Neurological Assessment (05/14/25 01:01) Vs/Hemodynamics .PER UNIT PROTOCOL (05/14/25 01:01) Chest Portable (05/14/25 03:03) Vital Signs Date Time Temp Pulse Resp B/P (MAP) Pulse Ox O2 Delivery O2 Flow Rate FiO2 05/14/25 00:27 97.1 113 24 148/119 100 97.1 Laboratory Tests Test 05/14/25 01:16 White Blood Count 11.9 10^3/uL (4.4-10.8) H Medications Medications Dose Ordered Sig/Lazaro Route Start Time Stop Time Status Last Admin Dose Admin Diagnostic Test (Pha) 1 strip Q90MIN 05/14/25 01:30 05/14/25 02:40 1 STRIP Insulin Human (Reg)/Sodium Chloride 100 ml @ 0.5 mls/hr Q24H IV 05/14/25 01:15 05/14/25 02:40 6 MLS/HR Sodium Bicarbonate 100 ml ONCE ONCE IV 05/14/25 01:15 05/14/25 01:16 DC 05/14/25 02:20 100 ML Sodium Chloride 1,000 ml @ 500 mls/hr Q2H IV 05/14/25 01:15 05/14/25 05:14 05/14/25 02:00 500 MLS/HR Assessment/Plan Assessment/Plan Diabetes mellitus with ketoacidosis Acute renal injury Leukocytosis, unspecified Electrolyte imbalance Generalized weakness Plan 1. Admit to intensive care unit 2. Breathing treatment 3. Pain control management 4. IV antibiotic management 5. Management of fluids and electrolytes 6. Consultation for hospitalist 7. Diagnostic test chest x-ray 8. DVT prophylaxis-on SCDs 9. Repeat labs CBC, CMP in a.m. 10. Home medication reviewed and reconciled 11. Continue with current medical management 12. Treatment plan discussed with patient and RN. Patient verbalized understanding. Plan discussed with: Patient, Other (RN) Problem List: (1) Diabetes mellitus with ketoacidosis (2) Acute renal injury (3) Leukocytosis, unspecified (4) Electrolyte imbalance (5) Generalized weakness Date of Service: May 14, 2025 Billing Provider: ALMA DELIA FUNES DNP Common Visit Codes: [id number] INP/OBS CARE (HIGH) ALMA DELIA FUNES DNP May 14, 2025 03:32
--- NOTE | 2025-05-14 03:43 | DVH ---
CHEST RADIOGRAPH Indication: epig pain Technique: Single frontal view of the chest was obtained COMPARISON: XY CHEST XRAY 1 VIEW on DOS: 02/06/25, XY CHEST PORTABLE on DOS: 12/29/24, XY CHEST PORTABLE on DOS: 12/01/24, XY CHEST PORTABLE on DOS: 10/19/24, XY CHEST XRAY 1 VIEW on DOS: 09/03/24 FINDINGS: Lines and Tubes: None Lungs: Clear Pleura: No effusion. No pneumothorax. Cardiomediastinal contours: Unremarkable Bones: Unremarkable IMPRESSION: 1. No acute disease.
[2025-05-14] MEDS: THIAMINE HCL 100 MG TAB PO ONE (04:10)
[2025-05-14 04:32] LABS: Hemoglobin 13.8 g/dL (13.5-17.5)
[2025-05-14 04:40] LABS: Albumin 4.4 g/dL (3.2-4.8); Alkaline Phosphatase 110 U/L (46-116); Anion Gap 29.00001 (5-15); BUN/Creatinine Ratio 21.4 (10.0-20.0); Calcium 9.1 mg/dL (8.7-10.4); Chloride 99 mmol/L (98-107); Sodium 138 mmol/L (136-145); Total Protein 7.6 g/dL (5.7-8.2)
[2025-05-14 04:41] LABS: Bilirubin, Total 0.7 mg/dL (0.2-1.0)
[2025-05-14 05:00] LABS: Hematocrit 44.3 % (41.0-53.0); Mean Corpuscular Hemoglobin 20.2 pg (28.0-32.0); Mean Corpuscular Volume 64.9 fL (80.0-100.0); Nucleated Red Blood Cells % 0.2 %
[2025-05-14 05:03] LABS: Alanine Aminotransferase < 9 U/L (7-40); Blood Urea Nitrogen 31 mg/dL (9-23); Glucose 345 mg/dL (74-106); Potassium 2.7 mmol/L (3.5-5.1)
[2025-05-14 05:05] LABS: Carbon Dioxide < 10 mmol/L (20-31)
[2025-05-14 05:38] LABS: Base Excess -10.9 mmol/L (-2.0-3.0)
[2025-05-14 07:53] LABS: Urine Protein, UAD TRACE (Negative)
[2025-05-14 08:06] VITALS: PULSE 114; RESP 19; O2SAT 100
[2025-05-14] MEDS: APIXABAN 5 MG TAB PO SCH (10:16)
[2025-05-14] MEDS: FAMOTIDINE (10MG/ML) 2ML VL IV SCH (10:16)
--- NOTE | 2025-05-14 12:32 | DVHPN2 ---
Reviewed: H&P Changes from previous H/P or p: No Changes General: Per HPI Eyes: No Pain, No Vision change, No Conjunctivae inflammation, No Eyelid inflammation, No Other, No Redness ENT: No Ear pain, No Ear discharge, No Nose pain, No Nose discharge, No Nose congestion, No Mouth pain, No Mouth swelling, No Throat pain, No Throat swelling, No Other Cardiovascular: No Chest Pain, No Palpitations, No Orthopnea, No Paroxysmal Noc. Dyspnea, No Edema, No Lt Headedness, No Other Respiratory: No Cough, No Dry, No Shortness of breath, No SOB with excertion, No Wheezing, No Hemoptysis, No Pleuritic Pain, No Sputum, No Other Gastrointestinal: No Nausea, No Vomiting; Abdominal Pain; No Diarrhea, No Constipation, No Melena, No Hematochezia, No Other Genitourinary: No Dysuria, No Frequency, No Incontinence, No Hematuria, No Retention; Other (Left flank pain) Musculoskeletal: No other, No neck pain, No shoulder pain, No arm pain, No back pain, No hand pain, No leg pain, No foot pain Skin: No Rash, No Lesions, No Jaundice, No Bruising, No Other Objective Vitals Vital Signs Date Time Temp Pulse Resp B/P (MAP) Pulse Ox O2 Delivery O2 Flow Rate FiO2 05/14/25 10:00 106 19 148/99 (115) 100 05/14/25 08:10 Room Air* 0 21 05/14/25 08:00 97.8 97.8 Intake/Output Intake and Output 05/14/25 07:00 Intake Total 1001 ml Balance 1001 ml Intake IV Total 1001 ml Exam General Appearance: Alert, Oriented X3, Cooperative, No acute distress HEENT: Atraumatic, PERRLA, EOMI, Mucous membr. moist/pink Respiratory: Normal air movement Cardiovascular: Regular rate, Normal S1, Normal S2, No murmurs Abdominal: Normal bowel sounds, Soft, No hepatospenomegaly, No masses, Other (Reports tenderness) Extremities: No clubbing, No cyanosis, No edema, Normal pulses, No tenderness/swelling Skin: No rashes, No significant lesion Neuro: Normal speech, Normal tone, Sensation intact, Cranial nerves 3-12 NL, Reflexes 2+, Other (Generalized weakness) Psych/Mental Status: Mental status NL, Mood NL Medications Current Medications Medications Dose Ordered Sig/Lazaro Route Start Time Stop Time Status Last Admin Dose Admin Sodium Chloride 1,000 ml @ 150 mls/hr Q6H40M IV 05/14/25 07:15 05/14/25 07:15 150 MLS/HR Insulin Human (Reg)/Sodium Chloride 100 ml @ 0.5 mls/hr Q24H IV 05/14/25 01:15 05/14/25 02:40 6 MLS/HR Dextrose 50 ml UD PRN IV 05/14/25 01:15 Diagnostic Test (Pha) 1 strip Q90MIN 05/14/25 01:30 05/14/25 10:14 1 STRIP Atorvastatin Calcium 20 mg HS PO 05/14/25 22:00 Famotidine 20 mg DAILY IV 05/14/25 10:00 05/14/25 10:16 20 MG Apixaban 5 mg BID PO 05/14/25 10:00 05/14/25 10:16 5 MG Acetaminophen/ Hydrocodone Bitart 1 tab Q4HP PRN PO 05/14/25 03:30 Ondansetron HCl 4 mg Q4HP PRN IV 05/14/25 03:30 Docusate Sodium 100 mg BIDPRN PRN PO 05/14/25 03:30 Acetaminophen 650 mg Q6HP PRN PO 05/14/25 03:30 Nitroglycerin 0.4 mg Q5MINP PRN SL 05/14/25 03:30 Morphine Sulfate 2 mg Q30M PRN IV 05/14/25 03:30 Laboratory Results Laboratory Tests 05/14/25 03:43 Chemistry Test 05/14/25 01:16 05/14/25 03:43 Calcium Level 9.1 mg/dL (8.7-10.4) 9.1 mg/dL (8.7-10.4) Magnesium Level 2.8 mg/dL (1.6-2.6) H Phosphorus Level 4.3 mg/dL (2.4-5.1) Albumin 4.4 g/dL (3.2-4.8) Total Protein 7.6 g/dL (5.7-8.2) Lipid panel Test 05/14/25 01:16 Lipase 75 U/L (12-53) H LFT Test 05/14/25 03:43 Alanine Aminotransferase (ALT) < 9 U/L (7-40) Alkaline Phosphatase 110 U/L (46-116) Aspartate Amino Transferase (AST) < 8 U/L (13-40) L Total Bilirubin 0.7 mg/dL (0.2-1.0) Urinalysis Test 05/14/25 01:30 Urine Color Light-yellow (Yellow) Urine Clarity Clear (Clear) Urine pH 5.5 (5.0-9.0) Urine Specific [place] 1.020 (1.001-1.035) Urine Protein Trace (Negative) H Urine Ketones 4+ (Negative) H Urine Blood Negative /uL (Negative) Urine Nitrite Negative (Negative) Urine Bilirubin Negative (Negative) Urine Urobilinogen Normal mg/dL (Negative) Urine Leukocyte Esterase Negative /uL (Negative) Urine RBC <1 /hpf (0 - 3) Urine Microscopic WBC < 1 /HPF (0-3) Urine Squamous Epithelial Cells Few /hpf (<5) Urine Bacteria None seen /hpf (None Seen) Urine Hyaline Casts Few /lpf (0 - 2) Urine Mucus Few (None Seen) Urine Glucose 4+ mg/dL (Normal) H Blood Gas Results Test 05/14/25 01:13 05/14/25 05:32 Arterial Blood pH 7.213 (7.350-7.450) 7.365 (7.350-7.450) FiO2 % 21.0 21.0 Labs and/or images reviewed: Labs reviewed by me, Image(s) reviewed by me Assessment/Plan Assessment/Plan 35-year-old male with past medical history of diabetes mellitus, AFib, seizures, and EtOH abuse who presented to [facility] ED for evaluation of hyperglycemia. Patient has been admitted in this facility multiple times for diabetes ketoacidosis. Patient reports that she has been experiencing epigastric abdominal pain, radiating to the left flank, associated with generalized weakness, getting worse that prompted this visit. 05/14:. Patient here for DKA. Has history of diabetes poorly controlled, also history of AFib, seizure, alcohol abuse. Came with hyperglycemia, anion gap, beta hydroxy butyrate elevated. On ABG pH 7.2 acidosis. Started on DKA protocol. Insulin drip. Most recent BNP still with anion gap. Patient also has KEILA. Likely KEILA due to VM[facility]. Continue DKA protocol until gap closes. Diagnosis: Diabetes mellitus with ketoacidosis Acute renal injury Leukocytosis, unspecified Electrolyte imbalance Generalized weakness Plan: Admit to [facility] Pain control management IV fluids DKA protocol, keep potassium more than 4, continue insulin drip until anion gap closes Transition for DKA with diabetic diet, 20 units Lantus, continue overlap with drips for 2 hours, after 2 hours and drips including insulin and fluids. [facility] full code Plan discussed with: Patient Date of Service: May 14, 2025 Billing Provider: SHONNA TAVERAS MD Common Visit Codes: [id number] CARE 30-74 MIN SHONNA TAVERAS MD May 14, 2025 12:32
[2025-05-14 13:33] VITALS: PULSE 111; RESP 16; O2SAT 100
[2025-05-14] MEDS: D5W/SOD CHL 0.45%/KCL 20MEQ 1,000 ML IV SCH (15:14)
[2025-05-14] MEDS: ATORVASTATIN 20 MG TAB PO SCH (22:51)
[2025-05-15] VITALS (9 sets, daily range): BP systolic 133–159; BP diastolic 80–101; PULSE 72–100; RESP 10–18; TEMP 97.8–98.7; O2SAT 96–100
[2025-05-15] MEDS: ONDANSETRON HCL 4 MG/2 ML VIAL IV PRN (03:58)
[2025-05-15 04:26] LABS: Alkaline Phosphatase 86 U/L (46-116); Anion Gap 10 (5-15); BUN/Creatinine Ratio 21.5 (10.0-20.0); Blood Urea Nitrogen 20 mg/dL (9-23); Calcium 8.9 mg/dL (8.7-10.4); Carbon Dioxide 21 mmol/L (20-31); Sodium 141 mmol/L (136-145); Total Protein 6.4 g/dL (5.7-8.2)
[2025-05-15 04:27] LABS: Albumin 3.8 g/dL (3.2-4.8); Bilirubin, Total 0.8 mg/dL (0.2-1.0)
[2025-05-15 04:39] LABS: Alanine Aminotransferase < 9 U/L (7-40); Chloride 110 mmol/L (98-107); Glucose 146 mg/dL (74-106); Potassium 2.7 mmol/L (3.5-5.1)
[2025-05-15 04:47] LABS: Hematocrit 35.4 % (41.0-53.0); Hemoglobin 11.6 g/dL (13.5-17.5); Mean Corpuscular Hemoglobin 20.5 pg (28.0-32.0); Mean Corpuscular Volume 62.7 fL (80.0-100.0); Nucleated Red Blood Cells % 0.1 %
[2025-05-15] MEDS ORDERED: DEXTROSE (50%) 50ML SYRG IV PRN ×2 (05:30→16:15)
[2025-05-15] MEDS: POTASSIUM CHL 20 Meq TABLET PO ONE ×2 (05:48→16:33)
[2025-05-15] MEDS: ACCU-CHEK COMFORT CURVE STRIP VI SCH ×2 (08:04→17:23)
[2025-05-15] MEDS: InsuLIN REG 1unit/0.01ml Soln (100units/ml) SC SCH ×2 (08:05→17:31)
[2025-05-15 08:48] LABS: Anisocytosis Slight
--- NOTE | 2025-05-15 16:03 | DVHPN2 ---
Reviewed: H&P Changes from previous H/P or p: No Changes General: Per HPI Eyes: No Pain, No Vision change, No Conjunctivae inflammation, No Eyelid inflammation, No Other, No Redness ENT: No Ear pain, No Ear discharge, No Nose pain, No Nose discharge, No Nose congestion, No Mouth pain, No Mouth swelling, No Throat pain, No Throat swelling, No Other Cardiovascular: No Chest Pain, No Palpitations, No Orthopnea, No Paroxysmal Noc. Dyspnea, No Edema, No Lt Headedness, No Other Respiratory: No Cough, No Dry, No Shortness of breath, No SOB with excertion, No Wheezing, No Hemoptysis, No Pleuritic Pain, No Sputum, No Other Gastrointestinal: No Nausea, No Vomiting; Abdominal Pain; No Diarrhea, No Constipation, No Melena, No Hematochezia, No Other Genitourinary: No Dysuria, No Frequency, No Incontinence, No Hematuria, No Retention; Other (Left flank pain) Musculoskeletal: No other, No neck pain, No shoulder pain, No arm pain, No back pain, No hand pain, No leg pain, No foot pain Skin: No Rash, No Lesions, No Jaundice, No Bruising, No Other Objective Vitals Vital Signs Date Time Temp Pulse Resp B/P (MAP) Pulse Ox O2 Delivery O2 Flow Rate FiO2 05/15/25 13:07 98.3 100 18 137/91 (106) 96 98.3 05/15/25 09:25 Room Air* 0 21 Intake/Output Intake and Output 05/15/25 07:00 Intake Total 3426.0 ml Output Total 1300 ml Balance 2126.0 ml Intake IV Total 3426.0 ml Output Urine Total 1100 ml Emesis 200 ml Exam General Appearance: Alert, Oriented X3, Cooperative, No acute distress HEENT: Atraumatic, PERRLA, EOMI, Mucous membr. moist/pink Respiratory: Normal air movement Cardiovascular: Regular rate, Normal S1, Normal S2, No murmurs Abdominal: Normal bowel sounds, Soft, No hepatospenomegaly, No masses, Other (Reports tenderness) Extremities: No clubbing, No cyanosis, No edema, Normal pulses, No tenderness/swelling Skin: No rashes, No significant lesion Neuro: Normal speech, Normal tone, Sensation intact, Cranial nerves 3-12 NL, Reflexes 2+, Other (Generalized weakness) Psych/Mental Status: Mental status NL, Mood NL Medications Current Medications Medications Dose Ordered Sig/Lazaro Route Start Time Stop Time Status Last Admin Dose Admin Atorvastatin Calcium 20 mg HS PO 05/14/25 22:00 Famotidine 20 mg DAILY IV 05/14/25 10:00 05/15/25 09:57 20 MG Apixaban 5 mg BID PO 05/14/25 10:00 05/15/25 09:56 5 MG Acetaminophen/ Hydrocodone Bitart 1 tab Q4HP PRN PO 05/14/25 03:30 Ondansetron HCl 4 mg Q4HP PRN IV 05/14/25 03:30 05/15/25 03:58 4 MG Docusate Sodium 100 mg BIDPRN PRN PO 05/14/25 03:30 Acetaminophen 650 mg Q6HP PRN PO 05/14/25 03:30 Nitroglycerin 0.4 mg Q5MINP PRN SL 05/14/25 03:30 Morphine Sulfate 2 mg Q30M PRN IV 05/14/25 03:30 Potassium Chloride/Dextrose/ Sod Cl 1,000 ml @ 100 mls/hr Q10H IV 05/14/25 14:00 05/15/25 01:14 100 MLS/HR Diagnostic Test (Pha) 1 strip IQ4HR 05/15/25 08:00 05/15/25 11:47 1 STRIP Insulin Human Regular IQ4HR SC 05/15/25 08:00 05/15/25 11:48 9 UNITS Dextrose 50 ml UD PRN IV 05/15/25 05:30 Laboratory Results Laboratory Tests 05/15/25 03:53 Chemistry Test 05/15/25 03:53 Albumin 3.8 g/dL (3.2-4.8) Calcium Level 8.9 mg/dL (8.7-10.4) Total Protein 6.4 g/dL (5.7-8.2) LFT Test 05/15/25 03:53 Alanine Aminotransferase (ALT) < 9 U/L (7-40) Alkaline Phosphatase 86 U/L (46-116) Aspartate Amino Transferase (AST) 10 U/L (13-40) L Total Bilirubin 0.8 mg/dL (0.2-1.0) Urinalysis Test 05/14/25 01:30 Urine Color Light-yellow (Yellow) Urine Clarity Clear (Clear) Urine pH 5.5 (5.0-9.0) Urine Specific [place] 1.020 (1.001-1.035) Urine Protein Trace (Negative) H Urine Ketones 4+ (Negative) H Urine Blood Negative /uL (Negative) Urine Nitrite Negative (Negative) Urine Bilirubin Negative (Negative) Urine Urobilinogen Normal mg/dL (Negative) Urine Leukocyte Esterase Negative /uL (Negative) Urine RBC <1 /hpf (0 - 3) Urine Microscopic WBC < 1 /HPF (0-3) Urine Squamous Epithelial Cells Few /hpf (<5) Urine Bacteria None seen /hpf (None Seen) Urine Hyaline Casts Few /lpf (0 - 2) Urine Mucus Few (None Seen) Urine Glucose 4+ mg/dL (Normal) H Labs and/or images reviewed: Labs reviewed by me, Image(s) reviewed by me Assessment/Plan Assessment/Plan 35-year-old male with past medical history of diabetes mellitus, AFib, seizures, and EtOH abuse who presented to [facility] ED for evaluation of hyperglycemia. Patient has been admitted in this facility multiple times for diabetes ketoacidosis. Patient reports that she has been experiencing epigastric abdominal pain, radiating to the left flank, associated with generalized weakness, getting worse that prompted this visit. 05/14:. Patient here for DKA. Has history of diabetes poorly controlled, also history of AFib, seizure, alcohol abuse. Came with hyperglycemia, anion gap, beta hydroxy butyrate elevated. On ABG pH 7.2 acidosis. Started on DKA protocol. Insulin drip. Most recent BNP still with anion gap. Patient also has KEILA. Likely KEILA due to VM[facility]. Continue DKA protocol until gap closes. 05/15: Patient continues to have abdominal pain which she endorses feels like reflux pain. We will continue Protonix IV 40 daily, add Carafate 1 g b.i.d.. Patient also complaining of possible chest pressure we will get troponins and continue telemetry. DKA is resolved we will start his home dose 15 units Lantus nightly, continue aggressive q.6 scale.. DKA fluids. Diet decrease to soft mechanical diabetic as patient is having GERD. He wants to try soft diet. We need to optimize insulin level before discharge. Continue inpatient care in present management plan. Diagnosis: Diabetes mellitus with ketoacidosis Acute renal injury Leukocytosis, unspecified Electrolyte imbalance Generalized weakness Plan: Admit to [facility] Pain control management IV fluids DKA protocol, keep potassium more than 4, continue insulin drip until anion gap closes Transition for DKA with diabetic diet, 20 units Lantus, continue overlap with drips for 2 hours, after 2 hours and drips including insulin and fluids. Telemetry full code Plan discussed with: Patient My Orders Orders - SHONNA TAVREAS MD Procedure Category Date Status Time Mrsa Screen JENI 05/15/25 In Process 11:17 Sucralfate Susp PHA 05/15/25 Logged (Carafate Susp) 22:00 Mechanical Soft Diet DIET 05/15/25 Transmitted Dinner Troponin-I Hs LAB 05/15/25 Transmitted 15:59 Date of Service: May 15, 2025 Billing Provider: SHONNA TAVERAS MD Common Visit Codes: [id number] INP/OBS CARE(HIGH) SHONNA TAVERAS MD May 15, 2025 16:03
[2025-05-15] MEDS: LACTATED RINGER'S 1,000 ML IV SCH (16:34)
[2025-05-15] MEDS: HYDROcodone-ACET 5/325MG TAB PO PRN (20:21)
[2025-05-15] MEDS: SUCRALFATE 1 GM/10 ML ORAL SUSP PO SCH (21:41)
[2025-05-15] MEDS: INSULIN LANTUS (GLARGINE) 1 /0.01ml (100units/ml) SC SCH (22:00)
[2025-05-16 01:00] VITALS: BP 137/88; PULSE 94; RESP 18; TEMP 97.1; O2SAT 100
[2025-05-16 05:00] VITALS: BP 128/89; PULSE 84; RESP 17; TEMP 97.1; O2SAT 99
[2025-05-16 06:35] LABS: Nucleated Red Blood Cells % 0.1 %
[2025-05-16 06:40] LABS: Hematocrit 30.1 % (41.0-53.0); Hemoglobin 10.1 g/dL (13.5-17.5); Mean Corpuscular Hemoglobin 20.6 pg (28.0-32.0); Mean Corpuscular Volume 61.5 fL (80.0-100.0)
[2025-05-16 06:54] LABS: Albumin 3.5 g/dL (3.2-4.8); Alkaline Phosphatase 75 U/L (46-116); Anion Gap 10 (5-15); BUN/Creatinine Ratio 25.0 (10.0-20.0); Blood Urea Nitrogen 15 mg/dL (9-23); Carbon Dioxide 26 mmol/L (20-31); Chloride 107 mmol/L (98-107); Sodium 143 mmol/L (136-145); Total Protein 5.9 g/dL (5.7-8.2)
[2025-05-16 06:55] LABS: Bilirubin, Total 0.7 mg/dL (0.2-1.0)
[2025-05-16 06:56] LABS: Alanine Aminotransferase < 9 U/L (7-40); Calcium 8.6 mg/dL (8.7-10.4); Glucose 54 mg/dL (74-106); Potassium 2.6 mmol/L (3.5-5.1)
[2025-05-16 08:00] VITALS: PULSE 92
[2025-05-16] MEDS: POTASSIUM CHL 20 Meq TABLET PO SCH (08:49)
[2025-05-16 09:00] VITALS: BP 155/102; PULSE 96; RESP 18; TEMP 97.9; O2SAT 100
[2025-05-16 09:25] VITALS: BP 144/98; PULSE 92
--- NOTE | 2025-05-16 11:42 | DVHDS2 ---
Discharge Summary Date of Admission May 14, 2025 at 03:20 Date of Discharge: May 16, 2025 Labs/Diagnostic Data: Laboratory Results Test 05/16/25 11:01 05/16/25 04:39 05/15/25 17:35 05/15/25 03:53 POC Glucose 256 mg/dl (70-106) White Blood Count 4.6 10^3/uL (4.4-10.8) Red Blood Count 4.89 10^6/uL (4.5-5.90) Hemoglobin 10.1 g/dL (13.5-17.5) Hematocrit 30.1 % (41.0-53.0) Mean Corpuscular Volume 61.5 fL (80.0-100.0) Mean Corpuscular Hemoglobin 20.6 pg (28.0-32.0) Mean Corpuscular Hemoglobin Concent 33.5 g/dL (32.0-36.0) Red Cell Distribution Width 21.4 % (11.8-14.3) Platelet Count 124 10^3/uL (140-450) Mean Platelet Volume 8.2 fL (6.9-10.8) Neutrophils (%) (Auto) 67.5 % (37.0-80.0) Lymphocytes (%) (Auto) 17.4 % (10.0-50.0) Monocytes (%) (Auto) 12.2 % (0.0-12.0) Eosinophils (%) (Auto) 2.7 % (0.0-7.0) Basophils (%) (Auto) 0.2 % (0.0-2.0) Neutrophils # (Auto) 3.1 10 ^3/uL (1.6-8.6) Lymphocytes # (Auto) 0.8 10 ^3/uL (0.4-5.4) Monocytes # (Auto) 0.6 10 ^3/uL (0-1.3) Eosinophils # (Auto) 0.1 10 ^3/uL (0-0.8) Basophils # (Auto) 0 10 ^3/uL (0-0.2) Nucleated Red Blood Cells 0.1 % Sodium Level 143 mmol/L (136-145) Potassium Level 2.6 mmol/L (3.5-5.1) Chloride Level 107 mmol/L (98-107) Carbon Dioxide Level 26 mmol/L (20-31) Anion Gap 10 (5-15) Blood Urea Nitrogen 15 mg/dL (9-23) Creatinine 0.60 mg/dL (0.700-1.30) Glomerular Filtration Rate Calc 129 mL/min (>90) BUN/Creatinine Ratio 25.0 (10.0-20.0) Serum Glucose 54 mg/dL (74-106) Calcium Level 8.6 mg/dL (8.7-10.4) Total Bilirubin 0.7 mg/dL (0.2-1.0) Aspartate Amino Transferase (AST) 12 U/L (13-40) Alanine Aminotransferase (ALT) < 9 U/L (7-40) Alkaline Phosphatase 75 U/L (46-116) Total Protein 5.9 g/dL (5.7-8.2) Albumin 3.5 g/dL (3.2-4.8) Troponin I High Sensitivity 14 ng/L (</=54) Platelet Estimate Adequate Hypochromasia (manual) Slight Anisocytosis (manual) Slight Microcytosis Slight Test 05/14/25 05:32 05/14/25 01:30 05/14/25 01:16 05/14/25 01:13 Blood Gas Specimen Type Arterial Blood Gas Sample Site Right radial Blood Gas Patient Temperature 37.0 Arterial Blood Date Drawn [id number] Arterial Blood pH 7.365 (7.350-7.450) Arterial Blood Partial Pressure CO2 22.1 mmHg (35.0-48.0) Arterial Blood Partial Pressure O2 105.6 mmHg (83.0-108.0) Arterial Blood HCO3 12.3 mmol/L (21.0-28.0) Arterial Blood Oxygen Saturation 97.6 % (94.0-98.0) Arterial Blood Base Excess -10.9 mmol/L (-2.0-3.0) Arterial Blood Oxyhemoglobin 96.3 % (94.0-98.0) Arterial Blood Carboxyhemoglobin 0.9 % (0.5-1.5) Arterial Blood Methemoglobin 0.4 % (0.0-1.5) Baljit Test Yes Blood Gas Total Hemoglobin 13.40 g/dL (13.5-17.5) Blood Gas Modality Room air FiO2 % 21.0 Urine Color Light-yellow (Yellow) Urine Clarity Clear (Clear) Urine pH 5.5 (5.0-9.0) Urine Specific [place] 1.020 (1.001-1.035) Urine Protein Trace (Negative) Urine Ketones 4+ (Negative) Urine Blood Negative /uL (Negative) Urine Nitrite Negative (Negative) Urine Bilirubin Negative (Negative) Urine Urobilinogen Normal mg/dL (Negative) Urine Leukocyte Esterase Negative /uL (Negative) Urine RBC <1 /hpf (0 - 3) Urine Microscopic WBC < 1 /HPF (0-3) Urine Squamous Epithelial Cells Few /hpf (<5) Urine Bacteria None seen /hpf (None Seen) Urine Hyaline Casts Few /lpf (0 - 2) Urine Mucus Few (None Seen) Urine Glucose 4+ mg/dL (Normal) Serum Osmolality 337 mOsm/kg (278-298) Phosphorus Level 4.3 mg/dL (2.4-5.1) Magnesium Level 2.8 mg/dL (1.6-2.6) Lipase 75 U/L (12-53) Beta-Hydroxybutyric Acid > 4.500 mmol/L (< 0.4) Blood Gas Spontaneous Rate 25 Blood Gas Critical Value Read Back yes Blood Gas Notified Whom md.m marion Blood Gas Notified Time [id number] Blood Gas Notified By director cpg anuel genao Other Laboratory Tests 05/16/25 04:39 Brief Hx & Hospital Course: 35-year-old male with past medical history of diabetes mellitus, AFib, seizures, and EtOH abuse who presented to [facility] ED for evaluation of hyperglycemia. Patient has been admitted in this facility multiple times for diabetes ketoacidosis. Patient reports that she has been experiencing epigastric abdominal pain, radiating to the left flank, associated with generalized weakness, getting worse that prompted this visit. 05/14:. Patient here for DKA. Has history of diabetes poorly controlled, also history of AFib, seizure, alcohol abuse. Came with hyperglycemia, anion gap, beta hydroxy butyrate elevated. On ABG pH 7.2 acidosis. Started on DKA protocol. Insulin drip. Most recent BNP still with anion gap. Patient also has KEILA. Likely KEILA due to VMN. Continue DKA protocol until gap closes. 05/15: Patient continues to have abdominal pain which she endorses feels like reflux pain. We will continue Protonix IV 40 daily, add Carafate 1 g b.i.d.. Patient also complaining of possible chest pressure we will get troponins and continue telemetry. DKA is resolved we will start his home dose 15 units Lantus nightly, continue aggressive q.6 scale.. DKA fluids. Diet decrease to soft mechanical diabetic as patient is having GERD. He wants to try soft diet. We need to optimize insulin level before discharge. Continue inpatient care in present management plan. 05/16: Vital signs stable, patient on Lantus, blood glucose are stable, requiring approximately 7 units insulin with meals which is at his home level. Also severe gastritis and GERD, we will discharge on Protonix 40 daily, with Carafate tablets 1 g b.i.d., both of those for 30 days, reassess for continuation by PCP. Continue home regimen of insulin dosing 15 units nightly, 8 units with meals. Follow up with blood glucose log with PCP. Continue soft mechanical diet until pain is improved and if tolerance improves, advance diet thereafter. Continue other home medications not mentioned above. Follow up PCP to review discharge. DC clinic 1 week. Diagnosis: DKA diabetic ketoacidosis Diabetes mellitus, type 2, with hyperglycemia, with ketoacidosis Acute renal injury Leukocytosis, unspecified Electrolyte imbalance Generalized weakness plan: - Protonix 40 daily, with Carafate tablets 1 g b.i.d., both of those for 30 days, reassess for continuation by PCP. -Continue home regimen of insulin dosing 15 units nightly, 8 units with meals. - take potassium 40 mEq tablet daily, 14 days. refill with pcp after potassium level repeat checked -Follow up with blood glucose log with PCP. -Continue soft mechanical diet until pain is improved and if tolerance improves, advance diet thereafter. -Continue other home medications not mentioned above. -Follow up PCP to review discharge. PCP to review blood glucose log and follow up with potassium levels. -DC clinic 1 week. Condition at Discharge: Fair Final Diagnosis/Problems List DKA diabetic ketoacidosis Diabetes mellitus, type 2, with hyperglycemia, with ketoacidosis Acute renal injury Leukocytosis, unspecified Electrolyte imbalance Generalized weakness Discharge Disposition: Home Discharge Instruct/Medications Scheduled Apixaban Base (Eliquis), 5 MG PO BID Atorvastatin Calcium (Lipitor), 1 TAB PO DAILY Ferrous Sulfate (Ferrous Sulfate), 325 MG PO MWF Flecainide Acetate (Tambocor Tablet), 50 MG PO Q12HR Folic Acid (Folic Acid), 1 MG PO DAILY Insulin Glargine (Basaglar Kwikpen), 20 UNIT SC HS Insulin Lispro (Insulin Lispro Kwikpen), 8 UNIT SC AC Metoclopramide HCl (Metoclopramide Hydrochlor), 10 MG PO BID Metoprolol Succinate (Toprol Xl), 25 MG PO DAILY Multiple Vitamin (Mvi Tab), 1 TAB PO DAILY Pantoprazole Sodium Sesquihydr (Pantoprazole Sodium), 40 MG PO DAILY@0600 Potassium Chloride (Klor-Con M10), 10 MEQ PO DAILY Sucralfate (Carafate Susp), 1 GM GT QID@0600,1130,1700,2200 Thiamine Hcl (Vitamin B-1), 100 MG PO DAILY Scheduled PRN Insulin Regular (Human) (Novolin R), 1-15 UNITS SC Q6HPRN PRN Durable Medical Equipment Isopropyl Alcohol (Alcohol Swabs), % XX ACHS, (DME) Lancets (Freestyle Lancets), EA XX ACHS, (DME) Discharge Statement: "Patient was advised to return to the ER or call 911 if any headaches, dizziness, shortness of breath, chest pain, abdominal pain, bleeding, fevers, or worsening of medical condition. Patient was counseled about treatment plan, medications, possible side effects, patientverbalized understanding. All questions were answered to the best of my ability. This discharge took greater then 30 minutes in planning, reviewing documentation, counseling the patient, and discussing with other team members." ASSESSMENT ASSESSMENT Assessment Date of Service: May 16, 2025 Billing Provider: SHONNA TAVERAS MD Common Visit Codes: [id number] DISCH DAY >30min SHONNA TAVERAS MD May 16, 2025 11:42
[2025-05-16] MEDS ORDERED: DEXTROSE (50%) 50ML SYRG IV PRN (12:00)
[2025-05-16] MEDS: POTASSIUM EFFERVESENT TAB 25 MEQ PO ONE (12:57)
[2025-05-16 13:00] VITALS: BP 144/93; PULSE 64; RESP 17; TEMP 98; O2SAT 100
[2025-05-16] MEDS ORDERED: PANT40T PO (15:14)
[2025-05-16] MEDS ORDERED: SUCR1TAB31 PO (15:15)
[2025-05-16] MEDS ORDERED: POTA-220 PO (15:16)
[2025-05-16] MEDS ORDERED: ACCU-CHEK COMFORT CURVE STRIP VI SCH (17:00)
[2025-05-16] MEDS ORDERED: InsuLIN REG 1unit/0.01ml Soln (100units/ml) SC SCH (17:00)
[2025-05-16] MEDS ORDERED: INSULIN LISPRO (HUMAN) 100 UNITS/ML ML SC SCH (17:00)
[2025-05-17] MEDS ORDERED: POTASSIUM CHL 20 Meq TABLET PO SCH (10:00)
== END 2025-05-16 17:08 | disposition home or self-care (01) | DRG 420 ==
LOC: ER 00:27 → EDBD 00:27 → EDUNIT# 00:27 → OVERFLOW 03:20 → TELE-WESTW 05:21 → OVERFLOW 05:32 → TELE-WESTW 05-15 16:08
PROVIDERS: ADMIT Student in an Organized Health Care Education/Training Program; ATTEND Student in an Organized Health Care Education/Training Program
DX: E11.10 Type 2 diabetes mellitus with ketoacidosis without coma (principal); N17.0 Acute kidney failure with tubular necrosis; D72.829 Elevated white blood cell count, unspecified; G40.909 Epilepsy, unspecified, not intractable, without status epilepticus; I48.0 Paroxysmal atrial fibrillation; E78.5 Hyperlipidemia, unspecified; R65.10 Systemic inflammatory response syndrome (SIRS) of non-infectious origin without acute organ dysfunction; F10.20 Alcohol dependence, uncomplicated; I10 Essential (primary) hypertension; E87.8 Other disorders of electrolyte and fluid balance, not elsewhere classified; K29.70 Gastritis, unspecified, without bleeding; K21.9 Gastro-esophageal reflux disease without esophagitis; Z79.01 Long term (current) use of anticoagulants; Z79.4 Long term (current) use of insulin; Z82.49 Family history of ischemic heart disease and other diseases of the circulatory system; Z79.899 Other long term (current) drug therapy
CPT/HCPCS: 36415; 36600; 71045; 80048; 80053; 81001; 82010; 82805; 82962; 83690; 83735; 83930; 84100; 84484; 85025; 87081; 99291; G0378; J1815; J2405; J3490